=== PATIENT | female | born 1940 | race Caucasian/White ===

== ENCOUNTER 2016-12-09 12:14 | Outpatient (RCR) | payer MEDICARE, MEDICAID ==
[2016-12-09 13:54] LABS: BASOPHILS % (AUTO) 1 % (0-10); EOSINOPHILS # (AUTO) 0.2 10^3/uL (0.0-0.3); EOSINOPHILS % (AUTO) 4 % (0-10); HEMATOCRIT 41 % (35-52); HEMOGLOBIN 13.6 G/DL (11.5-16.0); LYMPHOCYTES # (AUTO) 0.9 X 10^3 (1.0-4.0); LYMPHOCYTES % (AUTO) 20 % (12-44); MEAN CORPUSCULAR HEMOGLOBIN 33 PG (25-34); MEAN CORPUSCULAR HGB CONC 33 G/DL (32-36); MEAN CORPUSCULAR VOLUME 97 FL (80-99); MEAN PLATELET VOLUME 9.2 FL (7.4-10.4); MONOCYTES # (AUTO) 0.5 X 10^3 (0.0-1.0); MONOCYTES % (AUTO) 11 % (0-12); NEUTROPHILS % (AUTO) 65 % (42-75); PLATELET COUNT 136 10^3/uL (130-400); RED BLOOD COUNT 4.19 10^6/uL (4.35-5.85); RED CELL DISTRIBUTION WIDTH 12.8 % (10.0-14.5); WHITE BLOOD COUNT 4.6 10^3/uL (4.3-11.0)
[2016-12-09 14:16] LABS: ALBUMIN 4.3 GM/DL (3.2-4.5); BILIRUBIN,TOTAL 0.4 MG/DL (0.1-1.0); CALCIUM 9.8 MG/DL (8.5-10.1); CREATININE SERUM 1.19 MG/DL (0.60-1.30); POTASSIUM 5.5 MMOL/L (3.6-5.0); TOTAL PROTEIN 7.4 GM/DL (6.4-8.2)
[2017-01-23] MEDS ORDERED: GABA600T2 (07:00)
[2017-01-23] MEDS ORDERED: GEMF600T3 (07:00)
[2017-01-23] MEDS ORDERED: ALLO100T (07:00)
[2017-01-23] MEDS ORDERED: VALS160T28 (07:00)
[2017-01-23] MEDS ORDERED: FENT1PAT6 (07:00)
[2017-01-23] MEDS ORDERED: FLUT16SP22 (07:00)
[2017-01-23] MEDS ORDERED: TRAM50TA2 (07:00)
[2017-01-23] MEDS ORDERED: ALPR0.5T7 (07:00)
[2017-01-23] MEDS ORDERED: OMEP20CA12 (07:00)
[2017-01-23] MEDS ORDERED: ESTR42.52 (07:00)
[2017-01-23] MEDS ORDERED: SERT25TA5 (07:00)
[2017-01-23] MEDS ORDERED: NYST15OI13 (07:00)
[2017-01-23] MEDS ORDERED: ACHD5005 (07:00)
== END 2017-03-09 | disposition home or self-care (01) ==
LOC: ONC 12:14
PROVIDERS: ATTEND Internal Medicine Hematology & Oncology
DX: Z08 Encounter for follow-up examination after completed treatment for malignant neoplasm (principal); Z85.3 Personal history of malignant neoplasm of breast; E08.40 Diabetes mellitus due to underlying condition with diabetic neuropathy, unspecified; G62.9 Polyneuropathy, unspecified; Z79.899 Other long term (current) drug therapy; Z92.3 Personal history of irradiation
CPT/HCPCS: 36415; 80053; 85025; 85027; 99213

== ENCOUNTER 2017-01-23 05:15 | Day surgery (SDC) | payer MEDICARE, MEDICAID ==
[~2017-01-23] VITALS: Ht 160 cm; Wt 72.6 kg
--- OUTSIDE RECORDS SUMMARY | 2017-01-23 05:20 | XMS REPORT | Clinical Summary ---
Author Author [facility] Organization [facility] Address Unknown Phone Unavailable Care Team Providers Care Plisse Machine Operator Name Role Phone PCP Unavailable Source Comments Some departments are not documenting in the electronic medical record. If you do not see the information that you expected, contact Release of Information in the Health Information Management department at [phone] for further assistance in locating additional records.[facility] Allergies No Known Allergies Current Medications Prescription Sig. Disp. Refills Start End Date Status Date ALPRAZolam (XANAX) 0.5 mg Take 0.5 mg by mouth at Active tablet bedtime as needed. valsartan (DIOVAN) 160 mg Take 160 mg by mouth Active tablet daily. tolterodine LA(+) (DETROL Take 4 mg by mouth daily. Active LA) 4 mg capsule CALCIUM PO Take by mouth. Active allopurinol (ZYLOPRIM) Take 100 mg by mouth Active 100 mg tablet daily. MULTIVITAMIN WITH Take by mouth. Active MINERALS (ONE-A-DAY 50 PLUS PO) omeprazole DR(+) Take 20 mg by mouth Active (PRILOSEC) 20 mg capsule daily. cephalexin (KEFLEX) 500 Take 500 mg by mouth four Active mg capsule times daily. aspirin EC 81 mg tablet Take 81 mg by mouth Active daily. cholecalciferol (VITAMIN Take 1,000 Units by mouth Active D-3) 1,000 units tablet daily. NAPROXEN SODIUM (ALEVE Take by mouth. 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 Intravitreal Injection Procedure OCT and other investigations were carefully reviewed and a decision was made to inject the eye with medication for treatment of the condition. I discussed diagnosis and plan for intravitreal injection with patient. Risks, benefits and alternatives were discussed with patient. Risk of infection, and signs and symptoms of infection discussed at length with patient. Discussed fluctuating and deteriorating vision over the course of treatment. Patient elects to proceed with injection, informed consent was obtained and all questions were answered. Eye OD Diagnosis: WET AMD Pre-injection drops: Tetracaine 0.5% drops X 5% Betadine X Speculum used X Tetravisc X Injection Needle: 27 Gauge Needle 30 Gauge Needle Needle supplied with medication X Intravitreal injection: Concentration Volume (in mL) Aflibercept (Eylea) 2 mg / 0.05 mL Ranibizumab (Lucentis) 0.3 mg / 0.05 mL Ranibizumab (Lucentis) 0.5 mg / 0.05 mL Bevacizumab (Avastin) 1.25 mg / 0.05 mL X Triamcinolone (Kenalog) 40 mg / mL Triamcinolone (Triesence) 40 mg / mL Vancomycin 1 mg / 100 microLiters Ceftazidime 2 mg / 100 microLiters Zero units wasted Post-operative examination: Intraocular pressure checked by tonopen and found to be wnl mmHg; no complications noted X Antibiotic ointment instilled in the eye Patient stable at discharge I personally performed the Injection Parvez Rosario MD Exudative age-related macular degeneration of left eye ([facility]) 03/25/2015 Last Assessment & Plan: inactive Corneal scar, 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 Last Assessment & Plan: 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 noted stromal vessels today Resolved Problems Problem Noted Date Resolved Date AMD (age related macular degeneration) right eye 03/25/2015 03/25/2015 Family History Medical History Relation Name Comments Coronary Artery Disease Father Diabetes Father Diabetes Mother Relation Name Status Comments Father Mother Social History Tobacco Use Types Packs/Day Years Used Date Never Smoker Smokeless Tobacco: Never Used Alcohol Use Drinks/Week oz/Week Comments No 0 Standard 0.0 drinks or equivalent Sex Assigned at Date Recorded Not on file Last Filed Vital Signs Vital Sign Reading Time Taken Blood Pressure 133/70 06/16/2015 2:22 PM CDT Pulse 68 06/16/2015 2:22 PM CDT Temperature - - Respiratory Rate - - Oxygen Saturation - - Inhaled Oxygen - - Concentration Weight 62.1 kg (137 lb) 06/16/2015 2:22 PM CDT Height 149.9 cm (4' 11") 06/16/2015 2:22 PM CDT Body Mass Index 27.67 06/16/2015 2:22 PM CDT Plan of Treatment Health Maintenance Due Date Last Done Comments PHYSICAL (COMPREHENSIVE) 1947 EXAM PERTUSSIS VACCINE 1953 TETANUS VACCINE 12/13/1959 BREAST CANCER SCREENING 1982 COLORECTAL CANCER 1992 SCREENING SHINGLES VACCINE 2002 OSTEOPOROSIS SCREENING 12/13/2007 PREVNAR/PNEUMOVAX (#1) 12/13/2007 INFLUENZA VACCINE 09/07/2016 Results Not on filefrom Last 3 Months
--- OUTSIDE RECORDS SUMMARY | 2017-01-23 05:20 | XMS REPORT | Clinical Summary ---
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 Carlos Melchor MD Circumscribed scleroderma Overactive Bladder Active Carlos Melchor MD Hypertonicity of bladder Medication List Medication Instructions Start Date Stop Date Generic Name NDC Status Provider Patient Instruction ASPIRIN 81 MG ORAL TABLET DELAYED RELEASE 1 po qd ASPIRIN 09892494460 Active Carlos Melchor MD Active CALCIUM 600 + D 600-200 MG-UNIT ORAL TABLET 1 tab by mouth daily CALCIUM CARB-CHOLECALCIFEROL 40469799719 Active Carlos Melchor MD Active VALSARTAN 160 MG ORAL TABLET 1 tab by mouth daily VALSARTAN 92827872198 Active Carlos Melchor MD Active GABAPENTIN 600 MG ORAL TABLET 1 tab by mouth tid GABAPENTIN 69635683835 Active Carlos Melchor MD Active LOPID 600 MG ORAL TABLET 1 tab by mouth daily GEMFIBROZIL 14523500884 Active Carlos Melchor MD Active ALLOPURINOL 100 MG ORAL TABLET 1 tab by mouth daily ALLOPURINOL 86164495883 Active Carlos Melchor MD Active MULTIVITAMINS ORAL CAPSULE 1 cap by mouth daily MULTIPLE VITAMIN 97394200232 Active Carlos Melchor MD Active OMEPRAZOLE 20 MG ORAL CAPSULE DELAYED RELEASE 1 tablet by mouth daily OMEPRAZOLE 05624730194 Active Carlos Melchor MD Active NYSTATIN 528539 UNIT/GM EXTERNAL CREAM apply to rash TID PRN NYSTATIN 77067301526 Active Carlos Melchor MD Active [id number] 3.5-34541-8 OPHTHALMIC SUSPENSION 2 drops in affected eye [id number] 22776687359 Active Carlos Melchor MD Active TRAMADOL HCL 50 MG ORAL TABLET 1 po tid prn TRAMADOL HCL 46698269810 Active Carlos Melchor MD Active ALPRAZOLAM 0.5 MG ORAL TABLET 1 tab by mouth daily ALPRAZOLAM 66402102914 Active Carlos Melchor MD Active ACETAMINOPHEN EXTRA STRENGTH 500 MG ORAL TABLET 1 tab by mouth prn ACETAMINOPHEN 25794465316 Active Carlos Melchor MD Active POLYVINYL ALCOHOL 1.4 % OPHTHALMIC SOLUTION 1 drop POLYVINYL ALCOHOL 46352312556 Active Carlos Melchor MD Active KP VITAMIN D 1000 UNIT ORAL CAPSULE 1 cap by mouth daily CHOLECALCIFEROL 65596303743 Active Carlos Melchor MD Active ALEVE 220 MG ORAL TABLET 2 tabs by mouth daily NAPROXEN SODIUM 20457274922 Active Carlos Melchor MD Active SERTRALINE HCL 25 MG ORAL TABLET 1 tab by mouth daily SERTRALINE HCL 07217586817 Active Carlos Melchor MD Active FLUTICASONE PROPIONATE 50 MCG/ACT NASAL SUSPENSION 1 spray each nostril twice daily until bottle empty FLUTICASONE PROPIONATE 80267646963 Active Carlos Melchor MD Active Vital Signs Date Name Value Unit Range Description blood pressure, diastolic 70 mm[Hg] BP wesley blood pressure, systolic 142 mm[Hg] BP sys pulse rate E&M 70 /min Heart rate temperature E&M 98.1 [degF] Body temperature weight E&M 158 [lb_av] Weight Measured blood pressure, diastolic 75 mm[Hg] BP wesley blood pressure, systolic 118 mm[Hg] BP sys height E&M 59 [in_us] Bdy height temperature E&M 98 [degF] Body temperature weight E&M 156 [lb_av] Weight Measured Diagnostic Results Date Name Value Unit Range Description Office Visit: 3 mo f/u post dilation - Chemistry RBC, urine, dipstick negative protein, total urine random trace mg/dL Office Visit: 3 mo f/u post dilation - Urinalysis pH, urine, semiquantitative 6 specific gravity, urine 1.015 ketones, urine, by test strip negative bilirubin, urine negative glucose, urine, semiquantitative negative urine color yellow appearance, urine clear leukocyte esterase, urine, by dipstick 2+ nitrite, urine, semiquantitative negative urobilinogen, urine, semiquantitative (dipstick) 0.2 protein, urine, semiquantitative (dipstick) negative Office Visit: Consult for Recurrent UTIs - Chemistry protein, total urine random negative mg/dL RBC, urine, dipstick non-hemolyzed trace Office Visit: Consult for Recurrent UTIs - Urinalysis ketones, urine, by test strip negative bilirubin, urine negative glucose, urine, semiquantitative negative urine color yellow appearance, urine clear leukocyte esterase, urine, by dipstick trace nitrite, urine, semiquantitative negative urobilinogen, urine, semiquantitative (dipstick) negative protein, urine, semiquantitative (dipstick) negative pH, urine, semiquantitative 5 specific gravity, urine 1.005 urinalysis, routine Clean Catch culture status No Encounters Code Encounter Date Provider Facility CPT-37720 Level 3 New Patient 15:16:53 CDT Carlos Melchor MD [facility] Procedures Code Procedure Name Date Entry Date Standard Description CPT-07145 Dil F ureth int 15:16:54 CDT CPT-22463 Bladder Scan 15:16:53 CDT
--- OUTSIDE RECORDS SUMMARY | 2017-01-23 05:20 | XMS REPORT ---
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 Problem Anxiety F41.9 Active Problem History of breast cancer Z85.3 Active Problem General medical exam Z00.00 Active Problem Umbilical hernia K42.9 Active Problem Hypertriglyceridemia E78.1 Active Problem Hearing loss H91.90 Active Problem History of gout Z87.39 Active Problem Neuropathy G62.9 Active Problem Cataracts, bilateral H26.9 Active Problem History of gonorrhea Z86.19 Active Problem Verruca plantaris B07.0 Active Problem History of diabetes mellitus Z86.39 Active Problem Falls frequently R29.6 Active Medications No Known Medications Results No Known Results Summary Purpose [employer] Submission
--- OUTSIDE RECORDS SUMMARY | 2017-01-23 05:20 | XMS REPORT ---
Author Author SHAUN GOMEZ Organization [employer] Address Unknown Phone Unavailable Care Team Providers Care Tack Picker Name Role Phone SHAUN GOMEZ CP Unavailable Allergies, Adverse Reactions, Alerts Substance Reaction Event Type N.K.D.A. Info Not Available Non Drug Allergy Problems Problem Type Condition Code Onset Dates Condition Status Assessment History of gonorrhea Z86.19 Active Problem Verruca plantaris B07.0 Active Assessment Verruca plantaris B07.0 Active Problem History of diabetes mellitus Z86.39 Active Assessment History of diabetes mellitus Z86.39 Active Problem Falls frequently R29.6 Active Problem History of breast cancer Z85.3 Active Problem History of Guillain-[place] syndrome Z86.69 Active Problem Umbilical hernia K42.9 Active Problem Neuropathy G62.9 Active Assessment History of breast cancer Z85.3 Active Assessment History of Guillain-[place] syndrome Z86.69 Active Problem General medical exam Z00.00 Active Assessment Falls frequently R29.6 Active Problem History of gout Z87.39 Active Problem Anxiety F41.9 Active Problem Cataracts, bilateral H26.9 Active Problem Hearing loss H91.90 Active Assessment Hearing loss H91.90 Active Assessment Cataracts, bilateral H26.9 Active Assessment Anxiety F41.9 Active Assessment History of gout Z87.39 Active Assessment General medical exam Z00.00 Active Problem History of gonorrhea Z86.19 Active Assessment Neuropathy G62.9 Active Assessment Umbilical hernia K42.9 Active Medications Medication Code System Code Instructions Start Date End Date Status Dosage D3-1000 [facility] [address] 1000 UNIT Orally Once a day 1 capsule Aspirin [facility] [address]-59 81 MG Orally Once a day 1 tablet Calcium [facility] [address] 600-200 MG-UNIT Orally not defined Aleve [facility] [address]-98 220 MG Orally every 12 hrs 1 tablet as needed Valsartan [facility] [address]-97 160 MG Orally Once a day 1 tablet Tolterodine Tartrate ER [facility] [address]-43 4 MG Orally Once a day 1 capsule One Daily 50 Plus [facility] [address] Orally not defined Allopurinol [facility] [address]-27 100 MG Orally Once a day 1 tablet Alprazolam [facility] [address]-77 0.5 MG Orally Three times a day 1 tablet Procedures Procedure Coding System Code Date LAB NOT BILLED BY [facility] CPT-4 NOBLL Mar 07, 2015 [facility] VISIT NEW PATIENT CPT-4 G0466 Mar 07, 2015 GLYCATED HEMOGLOBIN TEST CPT-4 66908 Mar 07, 2015 VENIPUNCT, ROUTINE* CPT-4 58219 Mar 07, 2015 Office Visit, New Pt., Level 4 CPT-4 08768 Mar 07, 2015 Vital Signs Date/Time: Mar 07, 2015 Cardiac Monitoring Heart Rate 104 bpm Temperature 97.5 F Weight 142 lbs Blood Pressure Diastolic 82 mmHg Blood Pressure Systolic 108 mmHg Results Name Result Date Reference Range Unit Abnormality Flag A1C (IN HOUSE) ----A1C IN HOUSE 5.7 [id number] 4.3 - 5.6 % ----Lot [id number] ----Exp date [id number] ROUTINE VENIPUNCTURE Summary Purpose [employer] Submission
--- OUTSIDE RECORDS SUMMARY | 2017-01-23 05:20 | XMS REPORT | Clinical Summary ---
Author Author Admin, E Organization [facility] Address Unknown Phone Unavailable Allergies, Adverse Reactions, [...] TABLET DELAYED RELEASE 1 po qd ASPIRIN 21680053443 Active Carlos Melchor MD Active CALCIUM 600 + D 600-200 MG-UNIT ORAL TABLET 1 tab by mouth daily CALCIUM CARB-CHOLECALCIFEROL 86559346972 Active Carlos Melchor MD Active VALSARTAN 160 MG ORAL TABLET 1 tab by mouth daily VALSARTAN 54873729469 Active Carlos Melchor MD Active GABAPENTIN 600 MG ORAL TABLET 1 tab by mouth tid GABAPENTIN 32111739142 Active Carlos Melchor MD Active LOPID 600 MG ORAL TABLET 1 tab by mouth daily GEMFIBROZIL 96564421265 Active Carlos Melchor MD Active ALLOPURINOL 100 MG ORAL TABLET 1 tab by mouth daily ALLOPURINOL 10363262993 Active Carlos Melchor MD Active MULTIVITAMINS ORAL CAPSULE 1 cap by mouth daily MULTIPLE VITAMIN 70025275456 Active Carlos Melchor MD Active OMEPRAZOLE 20 MG ORAL CAPSULE DELAYED RELEASE 1 tablet by mouth daily OMEPRAZOLE 94501743727 Active Carlos Melchor MD Active NYSTATIN 955816 UNIT/GM EXTERNAL CREAM apply to rash TID PRN NYSTATIN 39120333338 Active Carlos Melchor MD Active QNJHMYLF-KRXEHNKOF-FG 3.5-09627-8 OPHTHALMIC SUSPENSION 2 drops in affected eye QDZEBOEQ-GFNYYQTUJ-JC 03253363841 Active Carlos Melchor MD Active TRAMADOL HCL 50 MG ORAL TABLET 1 po tid prn TRAMADOL HCL 02758743894 Active Carlos Melchor MD Active ALPRAZOLAM 0.5 MG ORAL TABLET 1 tab by mouth daily ALPRAZOLAM 53575969246 Active Carlos Melchor MD Active ACETAMINOPHEN EXTRA STRENGTH 500 MG ORAL TABLET 1 tab by mouth prn ACETAMINOPHEN 61629963100 Active Carlos Melchor MD Active POLYVINYL ALCOHOL 1.4 % OPHTHALMIC SOLUTION 1 drop POLYVINYL ALCOHOL 27562677819 Active Carlos Melchor MD Active KP VITAMIN D 1000 UNIT ORAL CAPSULE 1 cap by mouth daily CHOLECALCIFEROL 48848833429 Active Carlos Melchor MD Active ALEVE 220 MG ORAL TABLET 2 tabs by mouth daily NAPROXEN SODIUM 36718674584 Active Carlos Melchor MD Active SERTRALINE HCL 25 MG ORAL TABLET 1 tab by mouth daily SERTRALINE HCL 61511000661 Active Carlos Melchor MD Active FLUTICASONE PROPIONATE 50 MCG/ACT NASAL SUSPENSION 1 spray each nostril twice daily until bottle empty FLUTICASONE PROPIONATE 49909789753 Active Carlos Melchor MD Active Vital Signs [...] No Encounters Code Encounter Date Provider Facility CPT-56461 Level 3 New Patient 15:16:53 CDT Carlos Melchor MD [facility] Procedures Code Procedure Name Date Entry Date Standard Description CPT-60492 Dil F ureth int 15:16:54 CDT CPT-82395 Bladder Scan 15:16:53 CDT
--- OUTSIDE RECORDS SUMMARY | 2017-01-23 05:20 | XMS REPORT ---
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 Problem Cataracts, bilateral H26.9 Active Problem Hearing loss H91.90 Active Problem Umbilical hernia K42.9 Active Problem Neuropathy G62.9 Active Problem Verruca plantaris B07.0 Active Problem History of diabetes mellitus Z86.39 Active Problem Falls frequently R29.6 Active Problem History of gonorrhea Z86.19 Active Problem History of Guillain-[place] syndrome Z86.69 Active Medications Medication Code System Code Instructions Start Date End Date Status Dosage Tolterodine Tartrate ER [facility] [address]-51 4 MG Orally Once a day 1 capsule Allopurinol [facility] [address]-79 100 MG Orally Once a day 1 tablet Results No Known Results Summary Purpose [employer] Submission
--- OUTSIDE RECORDS SUMMARY | 2017-01-23 05:20 | XMS REPORT | Clinical Summary ---
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 Medication List Medication Instructions Start Date Stop Date Generic Name NDC Status Provider Patient Instruction ASPIRIN 81 MG ORAL TBEC 1 po qd ASPIRIN 64390248517 Active Carlos Melchor MD Active CALCIUM 600 + D 600-200 MG-UNIT ORAL TABS 1 tab by mouth daily CALCIUM CARB-CHOLECALCIFEROL 77186127137 Active Carlos Melchor MD Active VALSARTAN 160 MG ORAL TABS 1 tab by mouth daily VALSARTAN 84262651296 Active Carlos Melchor MD Active GABAPENTIN 600 MG ORAL TABS 1 tab by mouth tid GABAPENTIN 70540965872 Active Carlos Melchor MD Active LOPID 600 MG ORAL TABS 1 tab by mouth daily GEMFIBROZIL 26112532668 Active Carlos Melchor MD Active ALLOPURINOL 100 MG TAB 1 tab by mouth daily ALLOPURINOL 74015804336 Active Carlos Melchor MD Active MULTIVITAMINS CAPS 1 cap by mouth daily MULTIPLE VITAMIN 02186875083 Active Carlos Melchor MD Active OMEPRAZOLE 20 MG CPDR 1 tablet by mouth daily OMEPRAZOLE 40846026998 Active Carlos Melchor MD Active NYSTATIN 298798 UNIT/GM CREA apply to rash TID PRN NYSTATIN 10090363147 Active Carlos Melchor MD Active PEXGTNYY-BBKSDCNZP-PH 3.5-04156-1 OPHTH SUSP 2 drops in affected eye [id number] 60556190481 Active Carlos Melchor MD Active TRAMADOL HCL 50 MG TABS 1 po tid prn TRAMADOL HCL 88091127170 Active Carlos Melchor MD Active ALPRAZOLAM 0.5 MG TAB 1 tab by mouth daily ALPRAZOLAM 04742967269 Active Carlos Melchor MD Active ACETAMINOPHEN EXTRA STRENGTH 500 MG ORAL TABS 1 tab by mouth prn ACETAMINOPHEN 00810500087 Active Carlos Melchor MD Active POLYVINYL ALCOHOL 1.4 % OPHTH SOLN 1 drop POLYVINYL ALCOHOL 84634981979 Active Carlos Melchor MD Active KP VITAMIN D 1000 UNIT ORAL CAPS 1 cap by mouth daily CHOLECALCIFEROL 27394828368 Active Carlos Melchor MD Active ALEVE 220 MG TAB 2 tabs by mouth daily NAPROXEN SODIUM 36123094440 Active Carlos Melchor MD Active SERTRALINE HCL 25 MG ORAL TABS 1 tab by mouth daily SERTRALINE HCL 79643838313 Active Carlos Melchor MD Active FLUTICASONE PROPIONATE 50 MCG/ACT SUSP 1 spray each nostril twice daily until bottle empty FLUTICASONE PROPIONATE 75250149894 Active Carlos Melchor MD Active Vital Signs Date Name Value Unit Range Description blood pressure, diastolic 75 mm[Hg] BP wesley blood pressure, systolic 118 mm[Hg] BP sys height E&M 59 [in_us] Bdy height temperature E&M 98 [degF] Body temperature weight E&M 156 [lb_av] Weight Measured Diagnostic Results Date Name Value Unit Range Description Office Visit: Consult for Recurrent UTIs - Chemistry RBC, urine, dipstick non-hemolyzed trace protein, total urine random negative mg/dL Office Visit: Consult for Recurrent UTIs - Urinalysis pH, urine, semiquantitative 5 specific gravity, urine 1.005 urinalysis, routine Clean Catch culture status No ketones, urine, by test strip negative bilirubin, urine negative glucose, urine, semiquantitative negative urine color yellow appearance, urine clear leukocyte esterase, urine, by dipstick trace nitrite, urine, semiquantitative negative urobilinogen, urine, semiquantitative (dipstick) negative protein, urine, semiquantitative (dipstick) negative Encounters Code Encounter Date Provider Facility CPT-05959 Level 3 New Patient 15:16:53 CDT J Franco Melchor MD [facility] Procedures Code Procedure Name Date Entry Date Standard Description CPT-91065 Dil F ureth int 15:16:54 CDT CPT-83823 Bladder Scan 15:16:53 CDT
--- OUTSIDE RECORDS SUMMARY | 2017-01-23 05:21 | XMS REPORT | Clinical Summary ---
Author Author Admin, QIE Organization [facility] Address Unknown Phone Unavailable Allergies, Adverse [...] MG ORAL TBEC 1 po qd ASPIRIN 18340007061 Active Carlos Melchor MD Active CALCIUM 600 + D 600-200 MG-UNIT ORAL TABS 1 tab by mouth daily CALCIUM CARB-CHOLECALCIFEROL 99080338089 Active Carlos Melchor MD Active VALSARTAN 160 MG ORAL TABS 1 tab by mouth daily VALSARTAN 92390511892 Active Carlos Melchor MD Active GABAPENTIN 600 MG ORAL TABS 1 tab by mouth tid GABAPENTIN 02087520710 Active Carlos Melchor MD Active LOPID 600 MG ORAL TABS 1 tab by mouth daily GEMFIBROZIL 37490740052 Active Carlos Melchor MD Active ALLOPURINOL 100 MG TAB 1 tab by mouth daily ALLOPURINOL 13281801603 Active Carlos Melchor MD Active MULTIVITAMINS CAPS 1 cap by mouth daily MULTIPLE VITAMIN 54890400657 Active Carlos Melchor MD Active OMEPRAZOLE 20 MG CPDR 1 tablet by mouth daily OMEPRAZOLE 23946567175 Active Carlos Melchor MD Active NYSTATIN 866587 UNIT/GM CREA apply to rash TID PRN NYSTATIN 21760997696 Active Carlos Melchor MD Active [id number]-[id number]-HW 3.5-95368-7 OPHTH SUSP 2 drops in affected eye [id number] 64308217361 Active Carlos Melchor MD Active TRAMADOL HCL 50 MG TABS 1 po tid prn TRAMADOL HCL 23253172772 Active Carlos Melchor MD Active ALPRAZOLAM 0.5 MG TAB 1 tab by mouth daily ALPRAZOLAM 13585389448 Active Carlos Melchor MD Active ACETAMINOPHEN EXTRA STRENGTH 500 MG ORAL TABS 1 tab by mouth prn ACETAMINOPHEN 46669618914 Active Carlos Melchor MD Active POLYVINYL ALCOHOL 1.4 % OPHTH SOLN 1 drop POLYVINYL ALCOHOL 98726922692 Active Carlos Melchor MD Active KP VITAMIN D 1000 UNIT ORAL CAPS 1 cap by mouth daily CHOLECALCIFEROL 24885595303 Active Carlos Melchor MD Active ALEVE 220 MG TAB 2 tabs by mouth daily NAPROXEN SODIUM 86333508398 Active Carlos Melchor MD Active SERTRALINE HCL 25 MG ORAL TABS 1 tab by mouth daily SERTRALINE HCL 59299759114 Active Carlos Melchor MD Active FLUTICASONE PROPIONATE 50 MCG/ACT SUSP 1 spray each nostril twice daily until bottle empty FLUTICASONE PROPIONATE 23380542450 Active Carlos Melchor MD Active Vital Signs [...] negative Encounters Code Encounter Date Provider Facility CPT-33215 Level 3 New Patient 15:16:53 CDT J Franco Melchor MD [facility] Procedures Code Procedure Name Date Entry Date Standard Description CPT-47237 Dil F ureth int 15:16:54 CDT CPT-35302 Bladder Scan 15:16:53 CDT
--- OUTSIDE RECORDS SUMMARY | 2017-01-23 05:21 | XMS REPORT ---
Author Author SHAUN GOMEZ Organization [employer] Address Unknown Phone Unavailable Care Team Providers Care Director Strategic Account Management Name Role Phone SHAUN GOMEZ CP Unavailable Allergies, Adverse Reactions, Alerts Substance Reaction Event Type N.K.D.A. 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 Assessment History of diabetes mellitus Z86.39 Active Problem Hypertriglyceridemia E78.1 Active Problem Hearing loss H91.90 Active Problem History of gout Z87.39 Active Problem Neuropathy G62.9 Active Problem Cataracts, bilateral H26.9 Active Assessment Hearing loss H91.90 Active Assessment Cataracts, bilateral H26.9 Active Assessment Anxiety F41.9 Active Assessment History of gout Z87.39 Active Problem History of gonorrhea Z86.19 Active Problem Verruca plantaris B07.0 Active Assessment Neuropathy G62.9 Active Problem History of diabetes mellitus Z86.39 Active Assessment HTN (hypertension) I10 Active Assessment Hypertriglyceridemia E78.1 Active Problem Falls frequently R29.6 Active Medications Medication Code System Code Instructions Start Date End Date Status Dosage Aleve [facility] [address]-62 220 MG Orally every 12 hrs 1 tablet as needed Alprazolam [facility] [address]-73 0.5 MG Orally Three times a day 1 tablet Tolterodine Tartrate ER [facility] [address]-67 4 MG Orally Once a day 1 capsule Valsartan [facility] [address]-34 160 MG Orally Once a day 1 tablet Calcium [facility] 70948-03260 600-200 MG-UNIT Orally Once a day 1 tablet One Daily 50 Plus [facility] 64524-83325 1 tablet Orally Once a day 1 tablet D3-1000 [facility] 50483-68102 1000 UNIT Orally Once a day 1 capsule Allopurinol [facility] [address]-14 100 MG Orally Once a day 1 tablet Gemfibrozil [facility] [address]-37 600 MG Orally Twice a day 30 minutes before breakfast and 30 minutes before dinner Mar 14, 2015 1 tablet Aspirin [facility] [address]-67 81 MG Orally Once a day 1 tablet Procedures Procedure Coding System Code Date Office Visit, Est Pt., Level 3 CPT-4 49188 Mar 14, 2015 [facility] VISIT ESTABLISHED PATIENT CPT-4 G0467 Mar 14, 2015 Vital Signs Date/Time: Mar 14, 2015 Cardiac Monitoring Heart Rate 90 bpm Temperature 98.3 F Weight 138.9 lbs Blood Pressure Diastolic 64 mmHg Blood Pressure Systolic 108 mmHg Results No Known Results Summary Purpose [employer] Submission
--- OUTSIDE RECORDS SUMMARY | 2017-01-23 05:21 | XMS REPORT | Clinical Summary ---
Author Author Admin, QIE Organization [facility] Address Unknown Phone Unavailable Allergies, Adverse [...] MG ORAL TBEC 1 po qd ASPIRIN 27662021390 Active Carlos Melchor MD Active CALCIUM 600 + D 600-200 MG-UNIT ORAL TABS 1 tab by mouth daily CALCIUM CARB-CHOLECALCIFEROL 03575077578 Active Carlos Melchor MD Active VALSARTAN 160 MG ORAL TABS 1 tab by mouth daily VALSARTAN 35049767773 Active Carlos Melchor MD Active GABAPENTIN 600 MG ORAL TABS 1 tab by mouth tid GABAPENTIN 49821299692 Active Carlos Melchor MD Active LOPID 600 MG ORAL TABS 1 tab by mouth daily GEMFIBROZIL 45040770653 Active Carlos Melchor MD Active ALLOPURINOL 100 MG TAB 1 tab by mouth daily ALLOPURINOL 15134322200 Active Carlos Melchor MD Active MULTIVITAMINS CAPS 1 cap by mouth daily MULTIPLE VITAMIN 02943132327 Active Carlos Melchor MD Active OMEPRAZOLE 20 MG CPDR 1 tablet by mouth daily OMEPRAZOLE 12182692111 Active Carlos Melchor MD Active NYSTATIN 314030 UNIT/GM CREA apply to rash TID PRN NYSTATIN 19992610795 Active Carlos Melchor MD Active RXHTFJYH-[id number]-NV 3.5-14959-6 OPHTH SUSP 2 drops in affected eye [id number]-[id number] 70959954499 Active Carlos Melchor MD Active TRAMADOL HCL 50 MG TABS 1 po tid prn TRAMADOL HCL 13769328549 Active Carlos Melchor MD Active ALPRAZOLAM 0.5 MG TAB 1 tab by mouth daily ALPRAZOLAM 82097430345 Active Carlos Melchor MD Active ACETAMINOPHEN EXTRA STRENGTH 500 MG ORAL TABS 1 tab by mouth prn ACETAMINOPHEN 22774085780 Active Carlos Melchor MD Active POLYVINYL ALCOHOL 1.4 % OPHTH SOLN 1 drop POLYVINYL ALCOHOL 80447836872 Active Carlos Melchor MD Active KP VITAMIN D 1000 UNIT ORAL CAPS 1 cap by mouth daily CHOLECALCIFEROL 17545188002 Active Carlos Melchor MD Active ALEVE 220 MG TAB 2 tabs by mouth daily NAPROXEN SODIUM 46091109709 Active Carlos Melchor MD Active SERTRALINE HCL 25 MG ORAL TABS 1 tab by mouth daily SERTRALINE HCL 71574909022 Active Carlos Melchor MD Active FLUTICASONE PROPIONATE 50 MCG/ACT SUSP 1 spray each nostril twice daily until bottle empty FLUTICASONE PROPIONATE 59564526829 Active Carlos Melchor MD Active Vital Signs [...] negative Encounters Code Encounter Date Provider Facility CPT-20563 Level 3 New Patient 15:16:53 CDT J Franco Melchor MD [facility] Procedures Code Procedure Name Date Entry Date Standard Description CPT-85078 Dil F ureth int 15:16:54 CDT CPT-66198 Bladder Scan 15:16:53 CDT
--- OUTSIDE RECORDS SUMMARY | 2017-01-23 05:21 | XMS REPORT | Clinical Summary ---
Author Author Admin, E Organization [facility] Address Unknown Phone Unavailable Allergies, [...] TABLET DELAYED RELEASE 1 po qd ASPIRIN 45954879051 Active Carlos Melchor MD Active CALCIUM 600 + D 600-200 MG-UNIT ORAL TABLET 1 tab by mouth daily CALCIUM CARB-CHOLECALCIFEROL 33696141260 Active Carlos Melchor MD Active VALSARTAN 160 MG ORAL TABLET 1 tab by mouth daily VALSARTAN 78839038108 Active Carlos Melchor MD Active GABAPENTIN 600 MG ORAL TABLET 1 tab by mouth tid GABAPENTIN 60051799796 Active Carlos Melchor MD Active LOPID 600 MG ORAL TABLET 1 tab by mouth daily GEMFIBROZIL 04254499604 Active Carlos Melchor MD Active ALLOPURINOL 100 MG ORAL TABLET 1 tab by mouth daily ALLOPURINOL 02378357134 Active Carlos Melchor MD Active MULTIVITAMINS ORAL CAPSULE 1 cap by mouth daily MULTIPLE VITAMIN 29268786505 Active Carlos Melchor MD Active OMEPRAZOLE 20 MG ORAL CAPSULE DELAYED RELEASE 1 tablet by mouth daily OMEPRAZOLE 74646679853 Active Carlos Melchor MD Active NYSTATIN 093931 UNIT/GM EXTERNAL CREAM apply to rash TID PRN NYSTATIN 49383347320 Active Carlos Melchor MD Active IZCTVJZD-LKERWXRFW-MZ 3.5-12247-3 OPHTHALMIC SUSPENSION 2 drops in affected eye TRLXOKMR-CLDJMNVUL-MX 98140839221 Active Carlos Melchor MD Active TRAMADOL HCL 50 MG ORAL TABLET 1 po tid prn TRAMADOL HCL 45159090684 Active Carlos Melchor MD Active ALPRAZOLAM 0.5 MG ORAL TABLET 1 tab by mouth daily ALPRAZOLAM 58345300504 Active Carlos Melchor MD Active ACETAMINOPHEN EXTRA STRENGTH 500 MG ORAL TABLET 1 tab by mouth prn ACETAMINOPHEN 46290806489 Active Carlos Melchor MD Active POLYVINYL ALCOHOL 1.4 % OPHTHALMIC SOLUTION 1 drop POLYVINYL ALCOHOL 29471426260 Active Carlos Melchor MD Active KP VITAMIN D 1000 UNIT ORAL CAPSULE 1 cap by mouth daily CHOLECALCIFEROL 87032572795 Active Carlos Melchor MD Active ALEVE 220 MG ORAL TABLET 2 tabs by mouth daily NAPROXEN SODIUM 93674773838 Active Carlos Melchor MD Active SERTRALINE HCL 25 MG ORAL TABLET 1 tab by mouth daily SERTRALINE HCL 00252107421 Active Carlos Melchor MD Active FLUTICASONE PROPIONATE 50 MCG/ACT NASAL SUSPENSION 1 spray each nostril twice daily until bottle empty FLUTICASONE PROPIONATE 93701515494 Active Carlos Melchor MD Active Vital Signs [...] No Encounters Code Encounter Date Provider Facility CPT-37385 Level 3 New Patient 15:16:53 CDT Carlos Melchor MD [facility] Procedures Code Procedure Name Date Entry Date Standard Description CPT-95180 Dil F ureth int 15:16:54 CDT CPT-38202 Bladder Scan 15:16:53 CDT
--- OUTSIDE RECORDS SUMMARY | 2017-01-23 05:21 | XMS REPORT | Continuity of Care Document ---
Author Author [facility] Organization [facility] Address Unknown Phone Unavailable Allergies There is no data. Medications There is no data. Problems Date Dx Coded Attending Type Code Diagnosis Diagnosed By 12/20/2013 RANDY, BOBKALLI N Ot 356.9 12/20/2013 RANDY BOBAN N Ot 715.89 12/20/2013 RANDYREGINALDOAN N Ot V10.3 12/20/2013 RANDY, BOBAN N Ot V58.66 12/20/2013 RANDY, BOBAN N Ot V58.69 12/20/2013 RANDY, BOBAN N Ot V67.1 01/02/2014 RANDY BOBAN N Ot 356.9 01/02/2014 RANDY, BOBAN N Ot 715.89 01/02/2014 RANDY, BOBAN N Ot V10.3 01/02/2014 RANDY, BOBAN N Ot V58.66 01/02/2014 RANDY, BOBAN N Ot V58.69 01/02/2014 RANDY, BOBAN N Ot V67.1 12/24/2014 RANDYDANNY SHUKLA N Ot E08.40 12/24/2014 RANDYREGINALDOAN N Ot G62.9 12/24/2014 RANDY, BOBAN N Ot Z08 12/24/2014 RANDY, BOBAN N Ot Z79.899 12/24/2014 RANDY, BOBAN N Ot Z85.3 12/24/2014 RANDY, BOBAN N Ot Z92.3 12/30/2014 Ot 174.9 12/30/2014 Ot V15.3 12/30/2014 Ot V58.66 12/30/2014 Ot V58.69 12/30/2014 Ot 585.3 12/30/2014 Ot V10.3 12/30/2014 Ot V58.66 12/30/2014 Ot V58.69 12/30/2014 Ot V67.1 12/30/2014 Ot 356.9 12/30/2014 Ot V10.3 12/30/2014 Ot V58.66 12/30/2014 Ot V58.69 12/30/2014 Ot V67.1 12/30/2014 RANDY, DANNY N Ot 356.9 12/30/2014 RANDY, BOBAN N Ot 715.89 12/30/2014 RANDY, REGINALDOAN N Ot V10.3 12/30/2014 RANDY, REGINALDOAN N Ot V58.66 12/30/2014 RANDY, BOBAN N Ot V58.69 12/30/2014 RANDY, BOBAN N Ot V67.1 12/30/2014 RANDY, REGINALDOAN N Ot 356.9 12/30/2014 RANDY, REGINALDOAN N Ot 715.89 12/30/2014 RANDY, REGINALDOKALLI N Ot V10.3 12/30/2014 RANDY, DANNY N Ot V58.66 12/30/2014 RANDY, DANNY N Ot V58.69 12/30/2014 RANDY, REGINALDOKALLI N Ot V67.1 12/30/2014 RANDY, DANNY N Ot E08.40 12/30/2014 RANDY, DANNY N Ot G62.9 12/30/2014 RANDY, BOBAN N Ot Z08 12/30/2014 RANDY, BOBAN N Ot Z79.899 12/30/2014 RANDY, BOBAN N Ot Z85.3 12/30/2014 RANDY, REGINALDOAN N Ot Z92.3 12/30/2014 RANDY, DANNY N Ot E08.40 12/30/2014 RANDY, REGINALDOAN N Ot G62.9 12/30/2014 RANDY, BOBAN N Ot Z08 12/30/2014 RANDY, BOBAN N Ot Z79.899 12/30/2014 RANDY, BOBAN N Ot Z85.3 12/30/2014 RANDY, BOBAN N Ot Z92.3 12/02/2015 RANDY, REGINALDOAN N Ot E08.40 DIABETES DUE TO UNDERLYING CONDITION W D 12/02/2015 RANDYREGINALDO SHUKLAAN N Ot G62.9 POLYNEUROPATHY, UNSPECIFIED 12/02/2015 RANDYDANNY SHUKLA N Ot Z08 ENCNTR FOR FOLLOW-UP EXAM AFTER TRTMT FO 12/02/2015 DANNY PADILLA N Ot Z79.899 OTHER JAIL (CURRENT) DRUG THERAPY 12/02/2015 DANNY PADILLA N Ot Z85.3 PERSONAL HISTORY OF MALIGNANT NEOPLASM O 12/02/2015 DANNY PADILLA N Ot Z92.3 PERSONAL HISTORY OF IRRADIATION 12/08/2015 DANNY PADILLA N Ot E08.40 DIABETES DUE TO UNDERLYING CONDITION W D 12/08/2015 DANNY PADILLA N Ot G62.9 POLYNEUROPATHY, UNSPECIFIED 12/08/2015 RANDYDANNY SHUKLA N Ot Z08 ENCNTR FOR FOLLOW-UP EXAM AFTER TRTMT FO 12/08/2015 DANNY PADILLA N Ot Z79.899 OTHER JAIL (CURRENT) DRUG THERAPY 12/08/2015 DANNY PADILLA N Ot Z85.3 PERSONAL HISTORY OF MALIGNANT NEOPLASM O 12/08/2015 DANNY PADILLA N Ot Z92.3 PERSONAL HISTORY OF IRRADIATION 12/23/2015 DANNY PADILLA N Ot E08.40 DIABETES DUE TO UNDERLYING CONDITION W D 12/23/2015 DANNY PADILLA N Ot G62.9 POLYNEUROPATHY, UNSPECIFIED 12/23/2015 DANNY PADILLA N Ot Z08 ENCNTR FOR FOLLOW-UP EXAM AFTER TRTMT FO 12/23/2015 DANNY PADILLA N Ot Z79.899 OTHER JAIL (CURRENT) DRUG THERAPY 12/23/2015 DANNY PADILLA N Ot Z85.3 PERSONAL HISTORY OF MALIGNANT NEOPLASM O 12/23/2015 DANNY PADILLA N Ot Z92.3 PERSONAL HISTORY OF IRRADIATION 12/31/2015 DANNY PADILLA N Ot E08.40 DIABETES DUE TO UNDERLYING CONDITION W D 12/31/2015 DANNY PADILLA N Ot G62.9 POLYNEUROPATHY, UNSPECIFIED 12/31/2015 DANNY PADILLA N Ot Z08 ENCNTR FOR FOLLOW-UP EXAM AFTER TRTMT FO 12/31/2015 DANNY PADILLA N Ot Z79.899 OTHER POLYMER CHEMIST (CURRENT) DRUG THERAPY 12/31/2015 DANNY PADILLA N Ot Z85.3 PERSONAL HISTORY OF MALIGNANT NEOPLASM O 12/31/2015 DANNY PADILLA N Ot Z92.3 PERSONAL HISTORY OF IRRADIATION 09/17/2016 Ruiz CARRILLO, Carlos Gamez L90.0 Lichen sclerosus et atrophicus 12/10/2016 DANNY PADILLA Ot E08.40 DIABETES DUE TO UNDERLYING CONDITION W D 12/10/2016 DANNY PADILLA Ot G62.9 POLYNEUROPATHY, UNSPECIFIED 12/10/2016 DANNY PADILLA Ot Z08 ENCNTR FOR FOLLOW-UP EXAM AFTER TRTMT FO 12/10/2016 DANNY PADILLA Ot Z79.899 OTHER JAIL (CURRENT) DRUG THERAPY 12/10/2016 DANNY PADILLA Ot Z85.3 PERSONAL HISTORY OF MALIGNANT NEOPLASM O 12/10/2016 DANNY PADILLA Ot Z92.3 PERSONAL HISTORY OF IRRADIATION 01/14/2017 Ruiz CARRILLO, Carlos Gamez N32.81 Overactive Bladder Procedures There is no data. Results There is no data. Encounters ACCT No. Visit Date/Time Discharge Status Pt. Type Provider Facility Loc./Unit Complaint [id number] 12/09/2016 12:14:00 12/09/2016 23:59:59 CLS Outpatient DANNY PADILLA [facility] ONC [id number] 12/02/2015 10:42:00 12/02/2015 23:59:59 CLS Outpatient DANNY PADILLA [facility] FS [id number] 11/26/2014 11:00:00 11/26/2014 23:59:59 CLS Outpatient DANNY PADILLA [facility] FS [id number] 11/20/2013 10:16:00 11/20/2013 23:59:59 CLS Outpatient DANNY PADILLA [facility] FS [id number] 11/28/2012 12:59:00 11/28/2012 23:59:59 CLS Outpatient DANNY PADILLA [facility] FS [id number] 11/30/2011 13:04:00 Document Registration [id number] 11/03/2010 12:51:00 Document Registration [id number] 11/04/2009 13:41:00 Document Registration [id number] 01/15/2017 10:32:00 ACT Unknown Carlos Melchor MD
[2017-01-23] MEDS ORDERED: NS IV 1000 ML 1,000 ML IV ONE (05:30)
--- NOTE | 2017-01-23 05:43 | ED EENT ---
History of Present Illness General Stated Complaint: NOSE BLEED Source: EMS, RN notes reviewed (FROM [facility]) Exam Limitations: physical impairment (PT IS ESSENTIALLY DEAF, AND DID NOT BRING HEARING AIDS WITH HER) History of Present Illness Time seen by provider: 05:20 Initial Comments PT ARRIVES VIA EMS FROM [facility] PT HAS HAD A NOSE BLEED OFF AND ON SINCE YESTERDAY--LEFT NARE PT HAS BEEN TRANSPORTED BY EMS FROM HOME TO [facility] , APPARENTLY 2 TIMES IN THE LAST 12 HOURS, FIRST TIME PT ARRIVED BY POV--THE FIRST TIME, NOSE WAS PACKED WITH RAPID RHINO SECOND TIME, MORE AIR WAS PUT IN RAPID RHINO THIRD TIME, A LARGER 7.5 CM RAPID RHINO WAS PLACED THIS LAST TIME, PT WAS SENT HERE--BECAUSE CARMELINA BAEZ, [employer] 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 EMS REPORT THAT THE CERAMIC TILE INSTALLER AT THE HOME, PROMPTLY LEFT THE RESIDENCE SOON THEY ARRIVED, AND WILL NOT BE ACCOMPANYING PT TO ER. 0520--I CONTACTED CARMELINA ON PT'S ARRIVAL TO ER, SHE HAS NOT BEEN CONTACTED AT ANY TIME BY ANYONE OR [facility] ABOUT THIS PT, AND KNOWS NOTHING ABOUT HER. SHE WILL BE IN TO EVALUATE PT. PT STATES SHE HAS HAD NOSEBLEEDS "ALL MY LIFE" BUT NEVER ONE THIS BAD PT TAKES 81 MG ASPIRIN DAILY, OTHERWISE NO BLOOD THINNERS. NO OTHER INFORMATION IS OBTAINABLE FROM PT DUE TO EXTREME HARD OF HEARING/ ESSENTIALLY DEAF, PT CAN READ LIPS TO SOME DEGREE, BUT IS VERY LIMITED IN THAT WELL. ALL PMH IF FROM RECORD FROM [facility]. PT CANNOT GIVE HISTORY AND PT HAS NEVER BEEN TO THIS FACILITY Allergies and Home Medications Allergies Coded Allergies: No Known Drug Allergies (Unverified , 01/23/17) Home Medications Allopurinol 100 Mg Tablet, (Reported) Alprazolam 0.5 Mg Tablet, (Reported) Estradiol 42.5 Gm Cream.appl, (Reported) Fentanyl 1 Each Patch.td72, (Reported) Fluticasone Propionate 16 Gm [place].susp, (Reported) Gabapentin 600 Mg Tablet, (Reported) Gemfibrozil 600 Mg Tablet, (Reported) Hydrocodone/Acetaminophen 1 Each Tablet, (Reported) Nystatin 15 Gm Oint...g., (Reported) Omeprazole 20 Mg Capsule., (Reported) Sertraline HCl 25 Mg Tablet, (Reported) Tramadol HCl 50 Mg Tablet, (Reported) Valsartan 160 Mg Tablet, (Reported) Review of Systems Constitutional: other (UNABLE TO OBTAIN ANY RELEVANT INFORMATION FROM PT) Nose: see HPI Past Fpuahei-Caiepj-Gabaau Hx Patient Social History Alcohol Use: Denies Use Recreational Drug Use: No Smoking Status: Former Smoker Type Used: Cigarettes Surgeries History of Surgeries: Yes (BREAST BIOPSY/LUMPECTOMY/AXILLARY NODE DISSECTION; COLECTOMY; COLONOSCOPY; MULTIPLE OTHER UNKNOWN SURGERIES) Surgeries: Abdominal, Bowel Surgery, Breast, Gallbladder Respiratory History of Respiratory Disorde: Yes Respiratory Disorders: Sleep Apnea Cardiovascular History of Cardiac Disorders: Yes Cardiac Disorders: High Cholesterol, Hypertension Neurological History of Neurological Disord: Yes (GUIAAAIN-BARRE) Neurological Disorders: Neuropathy Reproductive System Sexually Transmitted Disease: Yes (GONORRHEA) 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 Genitourinary History of Genitourinary Disor: Yes (INCONTINENCE) Gastrointestinal History of Gastrointestinal Di: No Musculoskeletal History of Musculoskeletal Dis: Yes (RESTLESS LEGS; GAIT DISTURBANCE) Musculoskeletal Disorders: Arthritis Endocrine History of Endocrine Disorders: Yes Endocrine Disorders: Diabetes, Non-Insulin dep HEENT History of HEENT Disorders: Yes (NOSEBLEEDS; PERTUSSIS; ) HEENT Disorders: Cataract Hearing Impairment: Deaf, Bilateral Hearing Aide Cancer History of Cancer: Yes Cancer: Breast Did You Recieve Any Treatments: Yes Type of Tx Receive: Chemotherapy, Radiation, Surgical Intervention Psychosocial History of Psychiatric Problem: Yes Behavioral Health Disorders: Anxiety, Depression Integumentary History of Skin or Integumenta: Yes (CHICKEN POX; STAGE 3 ULCER OF LEFT ANKLE) Physical Exam Vital Signs Vital Sign - Last 12Hours 01/23/17 01/23/17 05:17 10:51 Temp 96.4 Pulse 66 Resp 18 B/P (MAP) 159/75 (103) Pulse Ox 93 O2 Delivery Room Air O2 Flow Rate 8.00 FiO2 40 General Appearance: no apparent distress, obese, other (CLOTHING AND FACE COVERED IN BLOOD --APPEARS RECENTL) Ears: bilateral ear other (EXTREMELY HARD OF HEARING) Nose: other (DRIED BLOOD AROUND PACKING/RAPID RHINO TO LEFT NARE. NO ACTIVE BLEEDING FROM ANTERIOR NOSE AT THIS TIME) Mouth/Throat: other (LARGE AMOUNT OF DRIED / OLD BLOOD IN MOUTH AND ON LIPS, AND IN POSTERIOR PHARYNX. ) Cardiovascular: regular rate, rhythm Respiratory: normal breath sounds Gastrointestinal: soft Neurologic/Psychiatric: no motor/sensory deficits, alert, oriented x 3 Skin: normal color, warm/dry Progress/Results/Core Measures Results/Orders Lab Results Laboratory Tests Test 01/23/17 05:55 Range/Units White Blood Count 6.6 4.3-11.0 10^3/uL Red Blood Count 3.87 L 4.35-5.85 10^6/uL Hemoglobin 12.8 11.5-16.0 G/DL Hematocrit 38 35-52 % Mean Corpuscular Volume 98 80-99 FL Mean Corpuscular Hemoglobin 33 25-34 PG Mean Corpuscular Hemoglobin Concent 34 32-36 G/DL Red Cell Distribution Width 12.8 10.0-14.5 % Platelet Count 180 130-400 10^3/uL Mean Platelet Volume 8.9 7.4-10.4 FL Neutrophils (%) (Auto) 66 42-75 % Lymphocytes (%) (Auto) 20 12-44 % Monocytes (%) (Auto) 10 0-12 % Eosinophils (%) (Auto) 3 0-10 % Basophils (%) (Auto) 1 0-10 % Neutrophils # (Auto) 4.4 1.8-7.8 X 10^3 Lymphocytes # (Auto) 1.3 1.0-4.0 X 10^3 Monocytes # (Auto) 0.7 0.0-1.0 X 10^3 Eosinophils # (Auto) 0.2 0.0-0.3 10^3/uL Basophils # (Auto) 0.1 0.0-0.1 10^3/uL Prothrombin Time 14.2 12.2-14.7 SEC INR Comment 1.1 0.8-1.4 Activated Partial Thromboplast Time 37 H 24-35 SEC Sodium Level 137 135-145 MMOL/L Potassium Level 4.7 3.6-5.0 MMOL/L Chloride Level 103 98-107 MMOL/L Carbon Dioxide Level 22 21-32 MMOL/L Anion Gap 12 5-14 MMOL/L Blood Urea Nitrogen 39 H 7-18 MG/DL Creatinine 0.87 0.60-1.30 MG/DL Estimat Glomerular Filtration Rate > 60 BUN/Creatinine Ratio 45 Glucose Level 186 H 70-105 MG/DL Calcium Level 9.8 8.5-10.1 MG/DL Total Bilirubin 0.3 0.1-1.0 MG/DL Aspartate Amino Transf (AST/SGOT) 16 5-34 U/L Alanine Aminotransferase (ALT/SGPT) 21 0-55 U/L Alkaline Phosphatase 66 40-136 U/L Total Protein 7.1 6.4-8.2 GM/DL Albumin 4.1 3.2-4.5 GM/DL My Orders Orders - MINOO SMITH DO Saline Lock/Iv-Start (01/23/17 05:30) Cbc With Automated Diff (01/23/17 05:30) Comprehensive Metabolic Panel (01/23/17 05:30) Protime With Inr (01/23/17 05:30) Partial Thromboplastin Time (01/23/17 05:30) Ns Iv 1000 Ml (Sodium Chloride 0.9%) (01/23/17 05:30) Vital Signs/I&O Vital Sign - Last 12Hours 01/23/17 01/23/17 01/23/17 01/23/17 12:00 16:00 19:20 20:20 Temp 98.4 99.3 Pulse 66 80 Resp 18 20 B/P (MAP) 145/74 (97) 168/94 (118) Pulse Ox 92 97 94 O2 Delivery Face Tent Face Tent Face Tent Face Tent O2 Flow Rate 8.00 8.00 FiO2 30 01/23/17 01/23/17 20:20 22:34 Temp 99.0 Pulse 85 Resp 24 B/P (MAP) 160/72 (101) Pulse Ox 94 94 O2 Delivery Face Tent Face Tent O2 Flow Rate 8.00 FiO2 30 Departure Communication (Admissions) Progress Notes 0605--CARMELINA BAEZ HERE TO SEE PT. CARE TURNED OVER TO HER. SHE HAS CONTACTED DR. PENG, AND HE WILL BE TAKING PT TO SURGERY FOR REPAIR. Impression Impression: Primary Impression: Recurrent epistaxis Disposition: ADMITTED INPATIENT Condition: Stable Admissions Decision to Admit Reason: Admit from ER (General) Decision to Admit/Date: Jan 23, 2017 Time/Decision to Admit Time: 06:30 Departure-Patient Inst. Referrals: ANNEL ZAVALA DO (PCP/Family) Primary Care Physician MINOO SMITH DO Jan 23, 2017 05:43
[2017-01-23 06:00] LABS: BASOPHILS # (AUTO) 0.1 10^3/uL (0.0-0.1); BASOPHILS % (AUTO) 1 % (0-10); EOSINOPHILS # (AUTO) 0.2 10^3/uL (0.0-0.3); EOSINOPHILS % (AUTO) 3 % (0-10); LYMPHOCYTES # (AUTO) 1.3 X 10^3 (1.0-4.0); LYMPHOCYTES % (AUTO) 20 % (12-44); MEAN CORPUSCULAR HEMOGLOBIN 33 PG (25-34); MEAN CORPUSCULAR HGB CONC 34 G/DL (32-36); MEAN CORPUSCULAR VOLUME 98 FL (80-99); MEAN PLATELET VOLUME 8.9 FL (7.4-10.4); MONOCYTES # (AUTO) 0.7 X 10^3 (0.0-1.0); MONOCYTES % (AUTO) 10 % (0-12); NEUTROPHILS # (AUTO) 4.4 X 10^3 (1.8-7.8); NEUTROPHILS % (AUTO) 66 % (42-75); PLATELET COUNT 180 10^3/uL (130-400); RED BLOOD COUNT 3.87 10^6/uL (4.35-5.85); RED CELL DISTRIBUTION WIDTH 12.8 % (10.0-14.5); WHITE BLOOD COUNT 6.6 10^3/uL (4.3-11.0)
[2017-01-23 06:12] LABS: INR 1.1 (0.8-1.4); PROTHROMBIN TIME PATIENT 14.2 SEC (12.2-14.7)
[2017-01-23 06:20] LABS: ALANINE AMINOTRANSFERASE 21 U/L (0-55); ALBUMIN 4.1 GM/DL (3.2-4.5); ANION GAP 12 MMOL/L (5-14); ASPARTATE AMINO TRANSFERASE 16 U/L (5-34); BILIRUBIN,TOTAL 0.3 MG/DL (0.1-1.0); BLOOD UREA NITROGEN 39 MG/DL (7-18); BUN/CREATININE RATIO 45; CALCIUM 9.8 MG/DL (8.5-10.1); CARBON DIOXIDE 22 MMOL/L (21-32); CHLORIDE 103 MMOL/L (98-107); CREATININE SERUM 0.87 MG/DL (0.60-1.30); GFR ESTIMATED > 60; GLUCOSE 186 MG/DL (70-105); POTASSIUM 4.7 MMOL/L (3.6-5.0); SODIUM 137 MMOL/L (135-145); TOTAL PROTEIN 7.1 GM/DL (6.4-8.2)
[2017-01-23] MEDS ORDERED: ALPR0.5T7 (07:00)
[2017-01-23] MEDS ORDERED: GEMF600T3 (07:00)
[2017-01-23] MEDS ORDERED: ALLO100T (07:00)
[2017-01-23] MEDS ORDERED: SERT25TA5 (07:00)
[2017-01-23] MEDS ORDERED: OMEP20CA12 (07:00)
[2017-01-23] MEDS ORDERED: TRAM50TA2 (07:00)
[2017-01-23] MEDS ORDERED: VALS160T28 (07:00)
[2017-01-23] MEDS ORDERED: ESTR42.52 (07:00)
[2017-01-23] MEDS ORDERED: HYDR-3812 (07:00)
[2017-01-23] MEDS ORDERED: FENT1PAT6 (07:00)
[2017-01-23] MEDS ORDERED: NYST15OI13 (07:00)
[2017-01-23] MEDS ORDERED: FLUT16SP22 (07:00)
[2017-01-23] MEDS ORDERED: GABA600T2 (07:00)
--- OUTSIDE RECORDS SUMMARY | 2017-01-23 07:10 | XMS REPORT | Clinical Summary ---
Author Author [facility] Organization [facility] Address Unknown Phone Unavailable Care Team Providers Care Staff Attorney Name Role Phone PCP Unavailable Source Comments Some departments are not documenting in the electronic medical record. If you do not see the information that you expected, contact Release of Information in the Health Information Management department at [phone] for further assistance in locating additional records.[facility] Allergies No Known Allergies Current Medications Prescription [...] Exudative age-related macular degeneration of left eye ([facility]) 03/25/2015 Last Assessment & Plan: inactive Corneal [...]
--- OUTSIDE RECORDS SUMMARY | 2017-01-23 07:11 | XMS REPORT | Continuity of Care Document ---
Author Author [facility] Organization [facility] Address Unknown Phone Unavailable Allergies [...] RANDY, BOBAN N Ot 715.89 12/30/2014 RANDY, REGINADLOAN N Ot V10.3 12/30/2014 RANDY, REGINALDOAN N [...] 12/02/2015 DANNY PADILLA N Ot Z79.899 OTHER SNF (CURRENT) DRUG THERAPY 12/02/2015 DANNY PADILLA N [...] 12/08/2015 DANNY PADILLA N Ot Z79.899 OTHER SNF (CURRENT) DRUG THERAPY 12/08/2015 DANNY PADILLA N [...] 12/23/2015 DANNY PADILLA N Ot Z79.899 OTHER SNF (CURRENT) DRUG THERAPY 12/23/2015 DANNY PADILLA N [...] 12/31/2015 DANNY PADILLA N Ot Z79.899 OTHER PRINCIPAL TECHNOLOGIST (CURRENT) DRUG THERAPY 12/31/2015 DANNY PADILLA N Ot Z85.3 PERSONAL HISTORY OF MALIGNANT NEOPLASM O 12/31/2015 DANNY PADILAL N Ot Z92.3 PERSONAL HISTORY OF IRRADIATION 09/17/2016 Ruiz CARRILLO, Carlos Gamez L90.0 Lichen sclerosus et atrophicus 12/10/2016 DANNY PADILLA Ot E08.40 DIABETES DUE TO UNDERLYING CONDITION W D 12/10/2016 DANNY PADILLA Ot G62.9 POLYNEUROPATHY, UNSPECIFIED 12/10/2016 DANNY PADILLA Ot Z08 ENCNTR FOR FOLLOW-UP EXAM AFTER TRTMT FO 12/10/2016 DANNY PADILLA Ot Z79.899 OTHER SNF (CURRENT) DRUG THERAPY 12/10/2016 DANNY PADILLA Ot Z85.3 PERSONAL HISTORY OF MALIGNANT NEOPLASM O 12/10/2016 DANNY PADILLA Ot Z92.3 PERSONAL HISTORY OF IRRADIATION 01/14/2017 Ruiz CARRILLO, Carlos Gamez N32.81 Overactive Bladder Procedures There is no data. Results There is no data. Encounters ACCT No. Visit Date/Time Discharge Status Pt. Type Provider Facility Loc./Unit Complaint [id number] 12/09/2016 12:14:00 12/09/2016 23:59:59 CLS Outpatient DANNY PADILLA [facility] ONC [id number] 12/02/2015 10:42:00 12/02/2015 23:59:59 CLS Outpatient DANNY PADILLA [facility] FS [id number] 11/26/2014 11:00:00 11/26/2014 23:59:59 CLS Outpatient DANNY PADILLA [facility] FS [id number] 11/20/2013 10:16:00 11/20/2013 23:59:59 CLS Outpatient DANNY PADILLA [facility] FS [id number] 11/28/2012 12:59:00 11/28/2012 23:59:59 CLS Outpatient DANNY PADILLA [facility] FS [id number] 11/30/2011 13:04:00 Document Registration [id number] 11/03/2010 12:51:00 Document Registration [id number] 11/04/2009 13:41:00 Document Registration [id number] 01/15/2017 10:32:00 ACT Unknown Carlos Melchor MD
[2017-01-23] MEDS ORDERED: MUPIROCIN 2% OINT 22 GM (BACTROBAN) TUBE ONE (07:20)
[2017-01-23] MEDS ORDERED: LIDOCAINE/EPI 1%-1:200,000 (XYLOCAINE) 10 ML VIAL ONE (07:20)
[2017-01-23] MEDS ORDERED: PHENYLEPHRINE 0.5% NASAL SPR (NEO-SYNEPHRINE) REG ONE ×2 (07:20→08:15)
[2017-01-23] MEDS ORDERED: COCAINE HCL 4% 2 ML SYR ONE (07:20)
[2017-01-23] MEDS ORDERED: LIDOCAINE PF 2% 5 ML (XYLOCAINE) VIAL ONE (07:23)
[2017-01-23] MEDS ORDERED: SUCCINYLCHOLINE INJ 100 MG/5 ML SYR ONE (07:23)
[2017-01-23] MEDS ORDERED: SEVOFLURANE (ULTANE) 15 ML INHAL SOLN ONE (07:23)
[2017-01-23] MEDS ORDERED: proPOfol 200 MG/20 ML (DIPRIVAN) VIAL IV ONE (07:23)
[2017-01-23] MEDS ORDERED: LACTATED RINGERS 1,000 ML IV ONE (07:23)
[2017-01-23] MEDS ORDERED: fentaNYL INJECTION 100 MCG/2 ML AMP ONE ×2 (07:24→07:50)
--- NOTE | 2017-01-23 07:24 | Progress Note-Standard ---
Standard Progress Note Progress Notes/Assess & Plan Date Seen by Provider: Jan 23, 2017 Time Seen by Provider: 07:00 Progress/Assessment & Plan Ent-Claudia 01/23 History and Physical CC: Recurrent Epistaxis HPI: Patient presetned to the ER brougth by EMS from [facility]. History of recurrent epistaxis which has not been stopped with multiple attempts at packing. Bleeding down back of throat. Distant history of a right sided nosebleed 3 years ago. PMHX: hard of hearing Meds: include aspirin Exam: Nose-packing in place on left with bleeding posteriorly down throat Right side minimal bleeding ORal Cavity-with oozing seen posteriorly coming down from nose Imp: Recurrent Left Posterior Epistaxis Rec: 1. Patient has a posterior epistaxis on left side. Seh will need eEUA with endoscpic repair and or packing. Consent obtained voer phone from her brother. Will proceed to the OR once crew is here Plan on keeping her for 24 hours post-op and t hen home on tuesday Final Diagnosis Left Posterior Epistaxis MARYANN PENG MD Jan 23, 2017 7:24 am
--- NOTE | 2017-01-23 07:26 | Progress Note-Pre Operative ---
Pre-Operative Progress Note H&P Reviewed The H&P was reviewed, patient examined and no changes noted. Date Seen by Provider: Jan 23, 2017 Time Seen by Provider: 07:00 Date H&P Reviewed: Jan 23, 2017 Time H&P Reviewed: 07:00 Pre-Operative Diagnosis: Recurrent Left Posteiror Epistaxis MARYANN PENG MD Jan 23, 2017 7:26 am
[2017-01-23] MEDS ORDERED: ONDANSETRON 4 MG/2 ML (SDV) Z0FRAN ONE ×2 (07:50→08:27)
[2017-01-23] MEDS ORDERED: morphine INJ 10 MG/ML 1ML (SYR OR VIAL) ONE (07:50)
[2017-01-23] MEDS ORDERED: LACTATED RINGERS 1,000 ML IV SCH (08:00)
[2017-01-23] MEDS ORDERED: COCAINE HCL 4% 2 ML SYR TOP ONE (08:15)
[2017-01-23] MEDS ORDERED: LIDOCAINE/EPI 1%-1:200,000 (XYLOCAINE) 10 ML VIAL INJ ONE (08:15)
[2017-01-23] MEDS ORDERED: ceFAZolin 1,000 MG (ANCEF) VIAL ONE (08:24)
[2017-01-23] MEDS ORDERED: ceFAZolin INJECTION 1,000 MG in NS (IVPB) 50 ML IV ONE (08:30)
--- NOTE | 2017-01-23 08:31 | Progress Note-Post Operative ---
Post-Operative Progess Note Surgeon (s)/Resident Services Director (s) Surgeon MARYANN PENG MD Resident Services Director n/a Pre-Operative Diagnosis Recurrent Left Posteiror Epistaxis Post-Operative Diagnosis same Post-Op Procedure Note Date of Procedure: Jan 23, 2017 Name of Procedure Performed: Endoscopic REpair of Left Posterior Epistaxis Description & Findings Description and Findings: n/a Anesthesia Type get Estimated Blood Loss 50cc Packing surgicel packing soaked with bactroban. Specimen(s) collected/removed none MARYANN PENG MD Jan 23, 2017 8:31 am
[2017-01-23] MEDS ORDERED: ONDANSETRON 4 MG/2 ML (SDV) Z0FRAN IVP PRN (08:45)
[2017-01-23] MEDS ORDERED: morphine INJ 10 MG/ML 1ML (SYR OR VIAL) IVP PRN (08:45)
[2017-01-23] MEDS ORDERED: ACETAMINOPHEN 500 MG TAB (TYLENOL) PO PRN (08:45)
[2017-01-23] MEDS ORDERED: HYDROcodone/APAP 5 MG/325 MG (LORTAB) TAB PO PRN (08:45)
[2017-01-23] MEDS ORDERED: fentaNYL INJECTION 100 MCG/2 ML AMP IVP PRN (08:45)
[2017-01-23] MEDS ORDERED: ACETAMINOPHEN 325 MG TABLET/CAPLET (TYLENOL) PO PRN (11:00)
[2017-01-23] MEDS: D5 1/2 NS W/KCL 20 MEQ/L 1,000 ML IV SCH ×2 (11:20→21:35)
[2017-01-23 12:00] VITALS: BP 145/74
[2017-01-23] MEDS: ceFAZolin INJECTION 1,000 MG in NS (IVPB) 50 ML IV SCH ×2 (14:37→21:34)
[2017-01-23 16:00] VITALS: BP 168/94
[2017-01-23 20:20] VITALS: BP 160/72
[2017-01-23] MEDS: MUPIROCIN 2% OINT 22 GM (BACTROBAN) TUBE TOP SCH (21:34)
[2017-01-23] MEDS: PHENYLEPHRINE 0.5% NASAL SPR (NEO-SYNEPHRINE) REG PRN (22:00)
[2017-01-23 23:55] VITALS: BP 161/69
[2017-01-24 03:32] VITALS: BP 139/65
[2017-01-24] MEDS: ceFAZolin INJECTION 1,000 MG in NS (IVPB) 50 ML IV SCH (05:30)
--- NOTE | 2017-01-24 06:00 | Progress Note-Standard ---
Standard Progress Note Progress Notes/Assess & Plan Date Seen by Provider: Jan 24, 2017 Time Seen by Provider: 06:00 Progress/Assessment & Plan Mario 01/23 History and Physical CC: Recurrent Epistaxis HPI: Patient presetned to the ER brougth by EMS from [facility]. History of recurrent epistaxis which has not been stopped with multiple attempts at packing. Bleeding down back of throat. Distant history of a right sided nosebleed 3 years ago. PMHX: hard of hearing Meds: include aspirin Exam: Nose-packing in place on left with bleeding posteriorly down throat Right side minimal bleeding ORal Cavity-with oozing seen posteriorly coming down from nose Imp: Recurrent Left Posterior Epistaxis Rec: 1. Patient has a posterior epistaxis on left side. Seh will need eEUA with endoscpic repair and or packing. Consent obtained voer phone from her brother. Will proceed to the OR once crew is here Plan on keeping her for 24 hours post-op and t hen home on tuesday Mario Minimal bleeding since surgery-use neosynephrine once or twice for oozing out front of nose-none posteriorly-think the oozing was from all the packing that has been placed and her aspirin-no significant bleeding - john paul diet On antibiotics because of packing OP-dry Nose-no new blood seen-left nares has a small amount of old blood present will discahrge after breakfast RTC-2 tenisha [facility] Epistaxis discahrge instructions Discharge prescriptions in chart Final Diagnosis Left Posterior Epistaxis MARYANN PENG MD Jan 24, 2017 6:00 am
[2017-01-24] MEDS: PHENYLEPHRINE 0.5% NASAL SPR (NEO-SYNEPHRINE) REG PRN ×2 (06:57→09:22)
[2017-01-24 08:00] VITALS: BP 173/78
[2017-01-24] MEDS: MUPIROCIN 2% OINT 22 GM (BACTROBAN) TUBE TOP SCH (09:22)
[2017-01-24 09:35] VITALS: BP 139/65
== END 2017-01-24 09:35 | disposition home or self-care (01) ==
LOC: EDUNIT# 05:15 → ER 05:16 → SDC 07:06 → 4TH 09:35 → SDC 01-24 09:35
PROVIDERS: ATTEND Otolaryngology Otolaryngology/Facial Plastic Surgery
DX: R04.0 Epistaxis (principal); G47.30 Sleep apnea, unspecified; E78.00 Pure hypercholesterolemia, unspecified; I10 Essential (primary) hypertension; M19.91 Primary osteoarthritis, unspecified site; E11.9 Type 2 diabetes mellitus without complications; G25.81 Restless legs syndrome; G61.0 Guillain-Barre syndrome; L89.523 Pressure ulcer of left ankle, stage 3; Z79.82 Long term (current) use of aspirin
CPT/HCPCS: 36415; 80053; 85025; 85610; 85730; 93005; 96360

== ENCOUNTER 2018-03-07 19:17 | Inpatient (IN) | payer MEDICARE, MEDICAID ==
[~2018-03-07] VITALS: Ht 160 cm; Wt 74.6 kg
[~2018-03-07 19:17] MED LIST: ACHD5005; ALLO100T PO; ALPR0.5T7 PO; ESTR42.52; FENT1PAT6; FLUT16SP22; GBPN600T PO; GEMF600T8 PO; NYST15OI13; OMEP20CA12 PO; SERT25TA5; TRAM50TA2 PO; VALS160T29 PO
--- NOTE | 2018-03-07 22:40 | NUR ---
JOSLYN GARCIA admitted to room 426-1, with an admitting diagnosis of SBO, on 03/07/18 from [facility] via EMS , accompanied by EMS STAFF.JOSLYN GARCIA introduced to surroundings, call light, bed controls, phone, TV, temperature control, lights, meal times, smoking policy, visitor policy, side rail policy, bathrooms and showers. Patient Rights given to patient in the handbook. JOSLYN GARCIA verbalizes understanding that [facility] is not responsible for the loss or damage to any personal effects or valuables that are kept in the patients possessions during their hospitalization.
--- NOTE | 2018-03-07 23:00 | NUR ---
DR. BARROW CALL AND INFORMED HIS PT HAS ARRIVED PER EMS. NEW ORDERS RECEIVED.
--- OUTSIDE RECORDS SUMMARY | 2018-03-07 23:18 | XMS REPORT | Clinical Summary ---
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 MD Circumscribed scleroderma Overactive Bladder Active Carlos Melchor MD Hypertonicity of bladder Fecal incontinence 787.60 Active Carlos Melchor MD Full incontinence of feces Medication List Medication Instructions Start Date Stop Date Generic Name NDC Status Provider Patient Instruction ASPIRIN 81 MG ORAL TABLET DELAYED RELEASE 1 po qd ASPIRIN 32113143028 Active Carlos Melchor MD Active CALCIUM 600 + D 600-200 MG-UNIT ORAL TABLET 1 tab by mouth daily CALCIUM CARB-CHOLECALCIFEROL 43036632671 Active Carlos Melchor MD Active VALSARTAN 160 MG ORAL TABLET 1 tab by mouth daily VALSARTAN 95752006292 Active Carlos Melchor MD Active GABAPENTIN 600 MG ORAL TABLET 1 tab by mouth tid GABAPENTIN 84960977298 Active Carlos Melchor MD Active LOPID 600 MG ORAL TABLET 1 tab by mouth daily GEMFIBROZIL 28056293979 Active Carlos Melchor MD Active ALLOPURINOL 100 MG ORAL TABLET 1 tab by mouth daily ALLOPURINOL 28901540753 Active Carlos Melchor MD Active MULTIVITAMINS ORAL CAPSULE 1 cap by mouth daily MULTIPLE VITAMIN 35614981961 Active Carlos Melchor MD Active OMEPRAZOLE 20 MG ORAL CAPSULE DELAYED RELEASE 1 tablet by mouth daily OMEPRAZOLE 07594070176 Active Carlos Melchor MD Active NYSTATIN 545683 UNIT/GM EXTERNAL CREAM apply to rash TID PRN NYSTATIN 82956617142 Active Carlos Melchor MD Active [id number]-ZFSPYCXRS-XY 3.5-69528-7 OPHTHALMIC SUSPENSION 2 drops in affected eye [id number] 34750983721 Active Carlos Melchor MD Active TRAMADOL HCL 50 MG ORAL TABLET 1 po tid prn TRAMADOL HCL 87838698908 Active Carlos Melchor MD Active ALPRAZOLAM 0.5 MG ORAL TABLET 1 tab by mouth daily ALPRAZOLAM 80092421287 Active Carlos Melchor MD Active ACETAMINOPHEN EXTRA STRENGTH 500 MG ORAL TABLET 1 tab by mouth prn ACETAMINOPHEN 03411574578 Active Carlos Melchor MD Active POLYVINYL ALCOHOL 1.4 % OPHTHALMIC SOLUTION 1 drop POLYVINYL ALCOHOL 38882576020 Active Carlos Melchor MD Active KP VITAMIN D 1000 UNIT ORAL CAPSULE 1 cap by mouth daily CHOLECALCIFEROL 34981774267 Active Carlos Melchor MD Active ALEVE 220 MG ORAL TABLET 2 tabs by mouth daily NAPROXEN SODIUM 93564826804 Active aCrlos Melchor MD Active SERTRALINE HCL 25 MG ORAL TABLET 1 tab by mouth daily SERTRALINE HCL 92209616454 Active Carlos Melchor MD Active FLUTICASONE PROPIONATE 50 MCG/ACT NASAL SUSPENSION 1 spray each nostril twice daily until bottle empty FLUTICASONE PROPIONATE 12305581635 Active Carlos Melchor MD Active Vital Signs Date Name Value Unit Range Description blood pressure, diastolic 68 mm[Hg] BP wesley blood pressure, systolic 118 mm[Hg] BP sys height E&M 59 [in_us] Bdy height temperature E&M 98.3 [degF] Body temperature weight E&M 162 [lb_av] Weight Measured blood pressure, diastolic 72 mm[Hg] BP wesley blood pressure, systolic 136 mm[Hg] BP sys pulse rate E&M 71 /min Heart rate temperature E&M 98.2 [degF] Body temperature weight E&M 160 [lb_av] Weight Measured blood pressure, diastolic 70 mm[Hg] BP wesley [...] No Encounters Code Encounter Date Provider Facility CPT-86254 Level 3 Est. Patient 14:21:57 CDT Carlos Melchor MD [facility] CPT-85345 Level 3 Est. 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
--- OUTSIDE RECORDS SUMMARY | 2018-03-07 23:18 | XMS REPORT | Clinical Summary ---
Author Author Admin, E Organization [facility] Address Unknown Phone Unavailable Allergies, Adverse Reactions, [...] TABLET DELAYED RELEASE 1 po qd ASPIRIN 82151023231 Active Carlos Melchor MD Active CALCIUM 600 + D 600-200 MG-UNIT ORAL TABLET 1 tab by mouth daily CALCIUM CARB-CHOLECALCIFEROL 42168777878 Active Carlos Melchor MD Active VALSARTAN 160 MG ORAL TABLET 1 tab by mouth daily VALSARTAN 24655604291 Active Carlos Melchor MD Active GABAPENTIN 600 MG ORAL TABLET 1 tab by mouth tid GABAPENTIN 90534466900 Active Carlos Melchor MD Active LOPID 600 MG ORAL TABLET 1 tab by mouth daily GEMFIBROZIL 58073348123 Active Carlos Melchor MD Active ALLOPURINOL 100 MG ORAL TABLET 1 tab by mouth daily ALLOPURINOL 62511396020 Active Carlos Melchor MD Active MULTIVITAMINS ORAL CAPSULE 1 cap by mouth daily MULTIPLE VITAMIN 10605327818 Active Carlos Melchor MD Active OMEPRAZOLE 20 MG ORAL CAPSULE DELAYED RELEASE 1 tablet by mouth daily OMEPRAZOLE 90131110193 Active Carlos Melchor MD Active NYSTATIN 904978 UNIT/GM EXTERNAL CREAM apply to rash TID PRN NYSTATIN 56890690047 Active Carlos Melchor MD Active [id number]-[id number] 3.5-13388-0 OPHTHALMIC SUSPENSION 2 drops in affected eye [id number]-[id number] 72477708572 Active Carlos Melchor MD Active TRAMADOL HCL 50 MG ORAL TABLET 1 po tid prn TRAMADOL HCL 20144687134 Active Carlos Melchor MD Active ALPRAZOLAM 0.5 MG ORAL TABLET 1 tab by mouth daily ALPRAZOLAM 66211033768 Active Carlos Melchor MD Active ACETAMINOPHEN EXTRA STRENGTH 500 MG ORAL TABLET 1 tab by mouth prn ACETAMINOPHEN 80884401545 Active Carlos Melchor MD Active POLYVINYL ALCOHOL 1.4 % OPHTHALMIC SOLUTION 1 drop POLYVINYL ALCOHOL 40206500979 Active Carlos Melchor MD Active KP VITAMIN D 1000 UNIT ORAL CAPSULE 1 cap by mouth daily CHOLECALCIFEROL 26266832140 Active Carlos Melchor MD Active ALEVE 220 MG ORAL TABLET 2 tabs by mouth daily NAPROXEN SODIUM 11158258277 Active Carlos Melchor MD Active SERTRALINE HCL 25 MG ORAL TABLET 1 tab by mouth daily SERTRALINE HCL 58223329728 Active Carlos Melchor MD Active FLUTICASONE PROPIONATE 50 MCG/ACT NASAL SUSPENSION 1 spray each nostril twice daily until bottle empty FLUTICASONE PROPIONATE 39100784367 Active Carlos Melchor MD Active Advance Directives Directive Description Start Date PERMISSION TO SHARE Vital Signs Date Name Value Unit Range [...] temperature weight E&M 158 [lb_av] Weight Measured Diagnostic Results Date Name [...] (dipstick) 0.2 protein, urine, semiquantitative (dipstick) negative Encounters Code Encounter Date Provider Facility CPT-01976 Level 3 Est. Patient 14:21:57 CDT Carlos Melchor MD [facility] CPT-45824 Level 3 Est. 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
--- OUTSIDE RECORDS SUMMARY | 2018-03-07 23:18 | XMS REPORT | Clinical Summary ---
Author Author [facility] Organization [facility] Address Unknown Phone Unavailable Care Team Providers Care Marketing Information Coordinator Name Role Phone Parvez Rosario MD Unavailable Source Comments Some departments are not documenting in the electronic medical record. If you do not see the information that you expected, contact Release of Information in the Health Information Management department at [phone] for further assistance in locating additional records.[facility] Allergies No Known Allergies Medications End Date Status Medication Sig Dispensed Refills Start Date Active ALPRAZolam (XANAX) 0.5 mg Take 0.5 mg 0 tablet by mouth at bedtime as needed. Active valsartan (DIOVAN) 160 mg Take 160 mg 0 tablet by mouth daily. Active tolterodine LA(+) (DETROL Take 4 mg by 0 LA) 4 mg capsule mouth daily. Active CALCIUM PO Take by 0 mouth. Active allopurinol (ZYLOPRIM) Take 100 mg 0 100 mg tablet by mouth daily. Active MULTIVITAMIN WITH Take by 0 MINERALS (ONE-A-DAY 50 mouth. PLUS PO) Active omeprazole DR(+) Take 20 mg by 0 (PRILOSEC) 20 mg capsule mouth daily. Active cephalexin (KEFLEX) 500 Take 500 mg 0 mg capsule by mouth four times daily. Active aspirin EC 81 mg tablet Take 81 mg by 0 mouth daily. Active cholecalciferol (VITAMIN Take 1,000 0 D-3) 1,000 units tablet Units by mouth daily. Active NAPROXEN SODIUM (ALEVE Take by 0 PO) mouth. 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 noted stromal vessels today Resolved Problems Problem Noted Date Resolved Date AMD (age related macular degeneration) right eye 03/25/2015 03/25/2015 Family History Medical History Relation Name Comments Coronary Artery Disease Father Diabetes Father Diabetes Mother Amblyopia Neg Hx Blindness Neg Hx Cancer Neg Hx Cataract Neg Hx Glaucoma Neg Hx Hypertension Neg Hx Macular Degen Neg Hx Neurologic Disorder Neg Hx Retinal Detachment Neg Hx Strabismus Neg Hx Stroke Neg Hx Thyroid Disease Neg Hx Relation Name Status Comments Father Mother Social History Date Tobacco Use Types Packs/Day Years Used Never Smoker Smokeless Tobacco: Never Used Alcohol Use Drinks/Week oz/Week Comments No 0 Standard 0.0 drinks or equivalent Sex Assigned at Date Recorded Not on file Industry Job Start Date Occupation Not on file Not on file Not on file Travel End Travel History Travel Start No recent travel history available. Last Filed Vital Signs Time Taken Vital Sign Reading 06/16/2015 2:22 PM CDT Blood Pressure 133/70 06/16/2015 2:22 PM CDT Pulse 68 - Temperature - - Respiratory Rate - - Oxygen Saturation - - Inhaled Oxygen - Concentration 06/16/2015 2:22 PM CDT Weight 62.1 kg (137 lb) 06/16/2015 2:22 PM CDT Height 149.9 cm (4' 11") 06/16/2015 2:22 PM CDT Body Mass Index 27.67 Plan of Treatment Health Maintenance Due Date Last Done Comments PHYSICAL (COMPREHENSIVE) 1947 EXAM DTAP/TDAP VACCINES (1 - 1960 Tdap) COLORECTAL CANCER 1992 SCREENING SHINGLES RECOMBINANT 1992 VACCINE (1 of 2) OSTEOPOROSIS 12/13/2007 SCREENING/MONITORING PNEUMONIA (PCV13/PPSV23) 12/13/2007 VACCINES (1 of 2 - PCV13) INFLUENZA VACCINE 09/07/2017 Results Not on filefrom Last 3 Months
--- OUTSIDE RECORDS SUMMARY | 2018-03-07 23:19 | XMS REPORT | Clinical Summary ---
Author Author Admin, E Organization [facility] Address Unknown Phone Unavailable Allergies, Adverse Reactions, [...] TABLET DELAYED RELEASE 1 po qd ASPIRIN 13253575638 Active Carlos Melchor MD Active CALCIUM 600 + D 600-200 MG-UNIT ORAL TABLET 1 tab by mouth daily CALCIUM CARB-CHOLECALCIFEROL 25987090300 Active Carlos Melchor MD Active VALSARTAN 160 MG ORAL TABLET 1 tab by mouth daily VALSARTAN 10927143501 Active Carlos Melchor MD Active GABAPENTIN 600 MG ORAL TABLET 1 tab by mouth tid GABAPENTIN 11112425148 Active Carlos Melchor MD Active LOPID 600 MG ORAL TABLET 1 tab by mouth daily GEMFIBROZIL 47780605169 Active Carlos Melchor MD Active ALLOPURINOL 100 MG ORAL TABLET 1 tab by mouth daily ALLOPURINOL 85171566505 Active Carlos Melchor MD Active MULTIVITAMINS ORAL CAPSULE 1 cap by mouth daily MULTIPLE VITAMIN 45672114637 Active Carlos Melchor MD Active OMEPRAZOLE 20 MG ORAL CAPSULE DELAYED RELEASE 1 tablet by mouth daily OMEPRAZOLE 08704332367 Active Carlos Melchor MD Active NYSTATIN 868289 UNIT/GM EXTERNAL CREAM apply to rash TID PRN NYSTATIN 95837750444 Active Carlos Melchor MD Active EFPYBHRK-[id number]-JW 3.5-88547-7 OPHTHALMIC SUSPENSION 2 drops in affected eye UQEFOECT-[id number]-GT 50270066985 Active Carlos Melchor MD Active TRAMADOL HCL 50 MG ORAL TABLET 1 po tid prn TRAMADOL HCL 32389072585 Active Carlos Melchor MD Active ALPRAZOLAM 0.5 MG ORAL TABLET 1 tab by mouth daily ALPRAZOLAM 75357162376 Active Carlos Melchor MD Active ACETAMINOPHEN EXTRA STRENGTH 500 MG ORAL TABLET 1 tab by mouth prn ACETAMINOPHEN 30785791446 Active Carlos Melchor MD Active POLYVINYL ALCOHOL 1.4 % OPHTHALMIC SOLUTION 1 drop POLYVINYL ALCOHOL 69080215642 Active Carlos Melchor MD Active KP VITAMIN D 1000 UNIT ORAL CAPSULE 1 cap by mouth daily CHOLECALCIFEROL 95827917689 Active Carlos Melchor MD Active ALEVE 220 MG ORAL TABLET 2 tabs by mouth daily NAPROXEN SODIUM 02046930562 Active Carlos Melchor MD Active SERTRALINE HCL 25 MG ORAL TABLET 1 tab by mouth daily SERTRALINE HCL 41891889911 Active Carlos Melchor MD Active FLUTICASONE PROPIONATE 50 MCG/ACT NASAL SUSPENSION 1 spray each nostril twice daily until bottle empty FLUTICASONE PROPIONATE 67875632589 Active Carlos Melchor MD Active Vital Signs [...] No Encounters Code Encounter Date Provider Facility CPT-45622 Level 3 Est. Patient 14:21:57 CDT Carlos Melchor MD [facility] CPT-49909 Level 3 Est. Patient 14:22:47 GANDY DANCER Carlos Melchor MD [facility] CPT-89345 Level 3 New Patient 15:16:53 CDT Carlos Melchor MD [facility] Procedures Code Procedure Name Date Entry Date Standard Description CPT-12545 Dil F ureth int 15:16:54 CDT CPT-63232 Bladder Scan 15:16:53 CDT
--- OUTSIDE RECORDS SUMMARY | 2018-03-07 23:19 | XMS REPORT | Clinical Summary ---
Author Author Admin, E Organization [facility] Address Unknown Phone Unavailable Allergies, Adverse [...] TABLET DELAYED RELEASE 1 po qd ASPIRIN 59673938794 Active Carlos Melchor MD Active CALCIUM 600 + D 600-200 MG-UNIT ORAL TABLET 1 tab by mouth daily CALCIUM CARB-CHOLECALCIFEROL 48683347174 Active Carlos Melchor MD Active VALSARTAN 160 MG ORAL TABLET 1 tab by mouth daily VALSARTAN 24841644059 Active Carlos Melchor MD Active GABAPENTIN 600 MG ORAL TABLET 1 tab by mouth tid GABAPENTIN 10634442549 Active Carlos Melchor MD Active LOPID 600 MG ORAL TABLET 1 tab by mouth daily GEMFIBROZIL 90462643436 Active Carlos Melchor MD Active ALLOPURINOL 100 MG ORAL TABLET 1 tab by mouth daily ALLOPURINOL 17930394885 Active Carlos Melchor MD Active MULTIVITAMINS ORAL CAPSULE 1 cap by mouth daily MULTIPLE VITAMIN 31553195390 Active Carlos Melchor MD Active OMEPRAZOLE 20 MG ORAL CAPSULE DELAYED RELEASE 1 tablet by mouth daily OMEPRAZOLE 89073690827 Active Carlos Melchor MD Active NYSTATIN 337630 UNIT/GM EXTERNAL CREAM apply to rash TID PRN NYSTATIN 15115246457 Active Carlos Melchor MD Active [id number]-[id number]-KW 3.5-97150-2 OPHTHALMIC SUSPENSION 2 drops in affected eye [id number]-SFYQIZOGG-AE 43436352422 Active Carlos Melchor MD Active TRAMADOL HCL 50 MG ORAL TABLET 1 po tid prn TRAMADOL HCL 46849795786 Active Carlos Melchor MD Active ALPRAZOLAM 0.5 MG ORAL TABLET 1 tab by mouth daily ALPRAZOLAM 42011991360 Active Carlos Melchor MD Active ACETAMINOPHEN EXTRA STRENGTH 500 MG ORAL TABLET 1 tab by mouth prn ACETAMINOPHEN 28473451627 Active Carlos Melchor MD Active POLYVINYL ALCOHOL 1.4 % OPHTHALMIC SOLUTION 1 drop POLYVINYL ALCOHOL 50959336618 Active Carlos Melchor MD Active KP VITAMIN D 1000 UNIT ORAL CAPSULE 1 cap by mouth daily CHOLECALCIFEROL 24285488392 Active Carlos Melchor MD Active ALEVE 220 MG ORAL TABLET 2 tabs by mouth daily NAPROXEN SODIUM 53622174860 Active Carlos Melchor MD Active SERTRALINE HCL 25 MG ORAL TABLET 1 tab by mouth daily SERTRALINE HCL 19403104919 Active Carlos Melchor MD Active FLUTICASONE PROPIONATE 50 MCG/ACT NASAL SUSPENSION 1 spray each nostril twice daily until bottle empty FLUTICASONE PROPIONATE 68190485952 Active Carlos Melchor MD Active Vital Signs Date Name Value Unit Range Description blood pressure, diastolic 72 mm[Hg] BP wesley [...] No Encounters Code Encounter Date Provider Facility CPT-69725 Level 3 Est. Patient 14:22:47 REPORTS ANALYST Carlos Melchor MD [facility] CPT-40702 Level 3 New Patient 15:16:53 CDT Carlos Melchor MD [facility] Procedures Code Procedure Name Date Entry Date Standard Description CPT-67802 Dil F ureth int 15:16:54 CDT CPT-12265 Bladder Scan 15:16:53 CDT
--- OUTSIDE RECORDS SUMMARY | 2018-03-07 23:19 | XMS REPORT | Clinical Summary ---
Author Author Admin, E Organization [facility] Address Unknown Phone Unavailable Allergies, [...] TABLET DELAYED RELEASE 1 po qd ASPIRIN 53455361440 Active Carlos Melchor MD Active CALCIUM 600 + D 600-200 MG-UNIT ORAL TABLET 1 tab by mouth daily CALCIUM CARB-CHOLECALCIFEROL 05691315572 Active Carlos Melchor MD Active VALSARTAN 160 MG ORAL TABLET 1 tab by mouth daily VALSARTAN 63724105147 Active Carlos Melchor MD Active GABAPENTIN 600 MG ORAL TABLET 1 tab by mouth tid GABAPENTIN 43021452037 Active Carlos Melchor MD Active LOPID 600 MG ORAL TABLET 1 tab by mouth daily GEMFIBROZIL 93928029109 Active Carlos Melchor MD Active ALLOPURINOL 100 MG ORAL TABLET 1 tab by mouth daily ALLOPURINOL 87582294357 Active Carlos Melchor MD Active MULTIVITAMINS ORAL CAPSULE 1 cap by mouth daily MULTIPLE VITAMIN 18068282877 Active Carlos Melchor MD Active OMEPRAZOLE 20 MG ORAL CAPSULE DELAYED RELEASE 1 tablet by mouth daily OMEPRAZOLE 88287523646 Active Carlos Melchor MD Active NYSTATIN 510783 UNIT/GM EXTERNAL CREAM apply to rash TID PRN NYSTATIN 39687538357 Active Carlos Melchor MD Active [id number]-[id number]-SC 3.5-39882-4 OPHTHALMIC SUSPENSION 2 drops in affected eye [id number] 08611012829 Active Carlos Melchor MD Active TRAMADOL HCL 50 MG ORAL TABLET 1 po tid prn TRAMADOL HCL 02664173078 Active Carlos Melchor MD Active ALPRAZOLAM 0.5 MG ORAL TABLET 1 tab by mouth daily ALPRAZOLAM 16931346574 Active Carlos Melchor MD Active ACETAMINOPHEN EXTRA STRENGTH 500 MG ORAL TABLET 1 tab by mouth prn ACETAMINOPHEN 37309631322 Active Carlos Melchor MD Active POLYVINYL ALCOHOL 1.4 % OPHTHALMIC SOLUTION 1 drop POLYVINYL ALCOHOL 87211313317 Active Carlos Melchor MD Active KP VITAMIN D 1000 UNIT ORAL CAPSULE 1 cap by mouth daily CHOLECALCIFEROL 69062580667 Active Carlos Melchor MD Active ALEVE 220 MG ORAL TABLET 2 tabs by mouth daily NAPROXEN SODIUM 73095602620 Active Carlos Melchor MD Active SERTRALINE HCL 25 MG ORAL TABLET 1 tab by mouth daily SERTRALINE HCL 03211104409 Active Carlos Melchor MD Active FLUTICASONE PROPIONATE 50 MCG/ACT NASAL SUSPENSION 1 spray each nostril twice daily until bottle empty FLUTICASONE PROPIONATE 03657574342 Active Carlos Melchor MD Active Vital Signs [...] No Encounters Code Encounter Date Provider Facility CPT-21401 Level 3 Est. Patient 14:21:57 CDT Carlos Melchor MD [facility] CPT-69290 Level 3 Est. 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
--- OUTSIDE RECORDS SUMMARY | 2018-03-07 23:20 | XMS REPORT | Clinical Summary ---
Author Author Admin, E Organization [facility] Address Unknown Phone Unavailable Allergies, Adverse [...] TABLET DELAYED RELEASE 1 po qd ASPIRIN 94376726271 Active Carlos Melchor MD Active CALCIUM 600 + D 600-200 MG-UNIT ORAL TABLET 1 tab by mouth daily CALCIUM CARB-CHOLECALCIFEROL 12448147772 Active Carlos Melchor MD Active VALSARTAN 160 MG ORAL TABLET 1 tab by mouth daily VALSARTAN 51576869162 Active Carlos Melchor MD Active GABAPENTIN 600 MG ORAL TABLET 1 tab by mouth tid GABAPENTIN 66557085735 Active Carlos Melchor MD Active LOPID 600 MG ORAL TABLET 1 tab by mouth daily GEMFIBROZIL 76192584515 Active Carlos Melchor MD Active ALLOPURINOL 100 MG ORAL TABLET 1 tab by mouth daily ALLOPURINOL 92385804774 Active Carlos Melchor MD Active MULTIVITAMINS ORAL CAPSULE 1 cap by mouth daily MULTIPLE VITAMIN 78970972094 Active Carlos Melchor MD Active OMEPRAZOLE 20 MG ORAL CAPSULE DELAYED RELEASE 1 tablet by mouth daily OMEPRAZOLE 95407927367 Active Carlos Melchor MD Active NYSTATIN 555365 UNIT/GM EXTERNAL CREAM apply to rash TID PRN NYSTATIN 29758110364 Active Carlos Melchor MD Active [id number]-LAAHPTDBF-MH 3.5-64208-3 OPHTHALMIC SUSPENSION 2 drops in affected eye [id number]-[id number]-TV 56207085353 Active Carlos Melchor MD Active TRAMADOL HCL 50 MG ORAL TABLET 1 po tid prn TRAMADOL HCL 53003999267 Active Carlos Melchor MD Active ALPRAZOLAM 0.5 MG ORAL TABLET 1 tab by mouth daily ALPRAZOLAM 16874857602 Active Carlos Melchor MD Active ACETAMINOPHEN EXTRA STRENGTH 500 MG ORAL TABLET 1 tab by mouth prn ACETAMINOPHEN 59633690970 Active Carlos Melchor MD Active POLYVINYL ALCOHOL 1.4 % OPHTHALMIC SOLUTION 1 drop POLYVINYL ALCOHOL 53201041858 Active Carlos Melchor MD Active KP VITAMIN D 1000 UNIT ORAL CAPSULE 1 cap by mouth daily CHOLECALCIFEROL 04690295003 Active Carlos Melchor MD Active ALEVE 220 MG ORAL TABLET 2 tabs by mouth daily NAPROXEN SODIUM 83214889973 Active Carlos Melchor MD Active SERTRALINE HCL 25 MG ORAL TABLET 1 tab by mouth daily SERTRALINE HCL 81493837969 Active Carlos Melchor MD Active FLUTICASONE PROPIONATE 50 MCG/ACT NASAL SUSPENSION 1 spray each nostril twice daily until bottle empty FLUTICASONE PROPIONATE 37443233577 Active Carlos Melchor MD Active Vital Signs [...] No Encounters Code Encounter Date Provider Facility CPT-37684 Level 3 Est. Patient 14:22:47 RADIO OFFICER Carlos Melchor MD [facility] CPT-85004 Level 3 New Patient 15:16:53 CDT Carlos Melchor MD [facility] Procedures Code Procedure Name Date Entry Date Standard Description CPT-58482 Dil F ureth int 15:16:54 CDT CPT-57507 Bladder Scan 15:16:53 CDT
--- OUTSIDE RECORDS SUMMARY | 2018-03-07 23:20 | XMS REPORT ---
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 Active 181277631660463 Problem Umbilical hernia K42.9 Active 502244559 Problem General medical exam Z00.00 Active 505064949 Problem DM 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 Active 77703101 Problem Hypertriglyceridemia E78.1 Active 957230402 Problem Falls frequently R29.6 Active 061566004 Problem History of breast cancer Z85.3 Active 153344594 Problem Anxiety F41.9 Active 35505914 Problem Neuropathy G62.9 Active 366516341 Problem Hearing loss H91.90 Active 62454590 Problem Cataracts, bilateral H26.9 Active 26957475 Problem History of diabetes mellitus Z86.39 Active 784231459 Problem Verruca plantaris B07.0 Active 72651528 Problem History of gonorrhea Z86.19 Active 625627933 Problem History of gout Z87.39 Active 087001441 ALLERGIES No Known Allergies ENCOUNTERS Encounter Location Date Diagnosis [facility] [id number] [place] [address] Jul, Callus of foot L84 [facility] [id number] [address] May, [facility] [address] [place] [address] Jul, [facility] [id number] [address] Jul, Dysuria R30.0 ; Vaginal discharge N89.8 and HTN ( hypertension) [address] [place] [address] [place] [address] Jul, [place] or callus L84 and DM 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 [place] [id number] [place] [address] June, Deformity of left foot M21.962 ; Callus of foot L84 and DM 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 [place] [id number] [place] [address] June, [place] [address] [address] May, Dysuria R30.0 ; Umbilical hernia K42.9 and Abdominal pain R10.[address] [address] Apr, Exostosis M89.8X9 ; Onychomycosis B35.1 and DM 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 [place] [id number] [place] [address] Mar, Dysuria R30.0 ; Vaginal discharge N89.8 ; UTI (urinary tract infection) N39.0 and Psoriasis L40.9 [place] [id number] [place] [address] Mar, [place] [id number] [place] [address] Mar, [place] [id number] [place] [address] Mar, Hypertriglyceridemia E78.1 ; Neuropathy G62.9 ; Cataracts, bilateral H26.9 ; Hearing loss H91.90 ; History of gout Z87.39 ; Anxiety F41.9 ; History of breast cancer Z85.3 ; History of Guillain-[place] syndrome Z86.69 ; History of diabetes mellitus Z86.39 and HTN (hypertension) I10 [place] [address] [facility] [id number] [place] [address] Feb, 2015 General medical exam Z00.00 ; Umbilical hernia K42.9 ; Neuropathy G62.9 ; Cataracts, bilateral H26.9 ; Hearing loss H91.90 ; History of gout Z87.39 ; Anxiety F41.9 ; History of breast cancer Z85.3 ; History of Guillain-[place] syndrome Z86.69 ; Falls frequently R29.6 ; History of diabetes mellitus Z86.39 ; Verruca plantaris B07.0 and History of gonorrhea Z86.19 IMMUNIZATIONS No Known Immunizations SOCIAL HISTORY Never Assessed REASON FOR VISIT SORE ON FOOT-[place], left foot has a sore PLAN OF CARE Activity Details Follow Up prn Reason: VITAL SIGNS Height 5'2" in 2017-07-18 Weight 153.3 lbs 2017-07-18 Temperature 97.9 degrees Fahrenheit 2017-07-18 Heart Rate 60 bpm 2017-07-18 Respiratory Rate 20 2017-07-18 BMI 28.04 kg/m2 2017-07-18 Blood pressure systolic 148 mmHg 2017-07-18 Blood pressure diastolic 80 mmHg 2017-07-18 MEDICATIONS Medication Instructions Dosage Frequency Start Date End Date Duration Status One Daily 50 Plus 1 tablet Orally Once a day 1 tablet 24h Active Allopurinol 100 MG Orally Once a day MUST HAVE APPT FOR REFILL 1 tablet Active Alprazolam 0.5 MG Orally Three times a day 1 tablet 8h Active Omeprazole 20 mg Orally Once a day 1 capsules 24h May, Active Gabapentin 600 MG Orally Three times a day 1 tablet 8h Active Medrol (David) Active Aspirin 81 MG Orally Once a day 1 tablet 24h Not-Taking Calcium 600-200 MG-UNIT Orally Once a day 1 tablet 24h Active Flagyl 500 MG 1 tablet Active Valsartan 160 MG Orally Once a day 1 tablet 24h Active Gemfibrozil 600 MG Orally Twice a day 30 minutes before breakfast and 30 minutes before dinner 1 tablet Mar, Active Nystatin 859067 UNIT/GM Externally 4 times a day 1 application to affected area 6h 10 days Active Tolterodine Tartrate ER 4MG Orally Once a day MUST HAVE APPT FOR REFILL 1 capsule Not-Taking Singulair 10 MG Orally Once a day 1 tablet 24h Active Aleve 220 MG Orally every 12 hrs 1 tablet as needed 12h Not-Taking RESULTS No Results PROCEDURES Procedure Date Ordered Result Body Site [facility] VISIT ESTABLISHED PATIENT July 18, 2017 INSTRUCTIONS MEDICATIONS ADMINISTERED No Known Medications MEDICAL (GENERAL) HISTORY Type Description Date Medical History Anxiey Medical History Personal history of other disorders of nervous system and sense organs Medical History Cataracts Medical History Hx of venereal disease Medical History collapsed colon Medical History Diabetes TypeII Medical History Gout Medical History Breast Cancer Medical History Hearing Loss Surgical History Cataract Surgery Surgical History Colon Resection Surgical History Cholecystecomy Surgical History colonoscopy Hospitalization History Rehab Hospitalization History [place] Hospitalization History Breast cancer biopsy
--- OUTSIDE RECORDS SUMMARY | 2018-03-07 23:21 | XMS REPORT | Continuity of Care Document ---
Author Author [facility] Organization [facility] Address Unknown Phone Unavailable Allergies Active Description Code Type Severity Reaction Onset Reported/Identified Relationship to Patient Clinical Status Yes No Known Drug Allergies [id number] Drug Allergy Unknown N/A 01/23/2017 Medications There is no data. Problems Date Dx Coded Attending Type Code Diagnosis Diagnosed By 12/20/2013 RANDY, BOBAN N Ot 356.9 12/20/2013 RANDY, BOBAN N Ot 715.89 12/20/2013 RANDY, BOBAN N Ot V10.3 12/20/2013 RANDY, BOBAN N Ot V58.66 12/20/2013 RANDY, BOBAN N Ot V58.69 12/20/2013 RANDY, BOBAN N Ot V67.1 01/02/2014 RANDY, BOBAN N Ot 356.9 01/02/2014 RANDY, BOBAN N Ot 715.89 01/02/2014 RANDY, BOBAN N Ot V10.3 01/02/2014 RANDY, BOBAN N Ot V58.66 01/02/2014 RANDY, BOBAN N Ot V58.69 01/02/2014 RANDY, BOBAN N Ot V67.1 12/24/2014 RANDY, BOBAN N Ot E08.40 12/24/2014 RANDY, BOBAN N Ot G62.9 12/24/2014 RANDY, BOBAN N [...] RANDY, BOBAN N Ot 715.89 12/30/2014 RANDY, BOBAN N Ot V10.3 12/30/2014 RANDY, BOBAN N Ot V58.66 12/30/2014 RANDY, BOBAN N Ot V58.69 12/30/2014 RANDY, BOBAN N Ot V67.1 12/30/2014 RANDY, BOBAN N Ot 356.9 12/30/2014 RANDY, BOBAN N Ot 715.89 12/30/2014 RANDY, REGINALDOAN N Ot V10.3 12/30/2014 RANDY, BOBAN N Ot V58.66 12/30/2014 RANDY, BOBAN N Ot V58.69 12/30/2014 RANDY, BOBAN N Ot V67.1 12/30/2014 RANDY, BOBAN N Ot E08.40 12/30/2014 RANDY, BOBAN N Ot G62.9 12/30/2014 RANDY, BOBAN N Ot Z08 12/30/2014 RANDY, BOBAN N Ot Z79.899 12/30/2014 RANDY, BOBAN N Ot Z85.3 12/30/2014 RANDY, BOBAN N Ot Z92.3 12/30/2014 RANDY, BOBAN N Ot E08.40 12/30/2014 RANDY, BOBAN N Ot G62.9 12/30/2014 RANDY, BOBAN N Ot Z08 12/30/2014 RANDY, BOBAN N Ot Z79.899 12/30/2014 RANDY, BOBAN N Ot Z85.3 12/30/2014 RANDY, BOBAN N Ot Z92.3 12/02/2015 RANDY, BOBAN N Ot E08.40 DIABETES DUE TO UNDERLYING CONDITION W D 12/02/2015 RANDY, BOBAN N Ot G62.9 POLYNEUROPATHY, UNSPECIFIED 12/02/2015 RANDY, BOBAN N Ot Z08 ENCNTR FOR FOLLOW-UP EXAM AFTER TRTMT FO 12/02/2015 DANNY PADILLA N Ot Z79.899 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 12/02/2015 DANNY PADILLA N Ot Z85.3 PERSONAL HISTORY OF MALIGNANT NEOPLASM O 12/02/2015 DANNY PADILLA N Ot Z92.3 PERSONAL HISTORY OF IRRADIATION 12/08/2015 DANNY PADILLA N Ot E08.40 DIABETES DUE TO UNDERLYING CONDITION W D 12/08/2015 DANNY PADILLA N Ot G62.9 POLYNEUROPATHY, UNSPECIFIED 12/08/2015 DANNY PADILLA N Ot Z08 ENCNTR FOR FOLLOW-UP EXAM AFTER TRTMT FO 12/08/2015 DANNY PADILLA N Ot Z79.899 OTHER INTERMEDIATE (CURRENT) DRUG THERAPY 12/08/2015 RANDYDANNY SHUKLA N Ot Z85.3 PERSONAL HISTORY OF MALIGNANT NEOPLASM O 12/08/2015 RANDYDANNY SHUKLA N Ot Z92.3 PERSONAL HISTORY OF IRRADIATION 12/23/2015 DANNY PADILLA N Ot E08.40 DIABETES DUE TO UNDERLYING CONDITION W D 12/23/2015 DANNY PADILLA N Ot G62.9 POLYNEUROPATHY, UNSPECIFIED 12/23/2015 DANNY PADILLA N Ot Z08 ENCNTR FOR FOLLOW-UP EXAM AFTER TRTMT FO 12/23/2015 DANNY PADILLA N Ot Z79.899 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 12/23/2015 DANNY PADILLA N Ot Z85.3 PERSONAL HISTORY OF MALIGNANT NEOPLASM O 12/23/2015 DANNY PADILLA N Ot Z92.3 PERSONAL HISTORY OF IRRADIATION 12/31/2015 DANNY PADILLA N Ot E08.40 DIABETES DUE TO UNDERLYING CONDITION W D 12/31/2015 DANNY PADILLA N Ot G62.9 POLYNEUROPATHY, UNSPECIFIED 12/31/2015 RANDYDANNY SHUKLA N Ot Z08 ENCNTR FOR FOLLOW-UP EXAM AFTER TRTMT FO 12/31/2015 DANNY PADILLA N Ot Z79.899 OTHER INTERMEDIATE (CURRENT) DRUG THERAPY 12/31/2015 RANDYDANNY N Ot Z85.3 PERSONAL HISTORY OF MALIGNANT NEOPLASM O 12/31/2015 RANDYDANNY SHUKLA N Ot Z92.3 PERSONAL HISTORY OF IRRADIATION 09/17/2016 Carlos Melchor MD L90.0 Lichen sclerosus et atrophicus 12/10/2016 DANNY PADILLA Ot E08.40 DIABETES DUE TO UNDERLYING CONDITION W D 12/10/2016 DANNY PADILLA Kodi Ot G62.9 POLYNEUROPATHY, UNSPECIFIED 12/10/2016 DANNY PADILLA Ot Z08 ENCNTR FOR FOLLOW-UP EXAM AFTER TRTMT FO 12/10/2016 DANNY PADILLA Kodi Ot Z79.899 OTHER INTERMEDIATE (CURRENT) DRUG THERAPY 12/10/2016 DANNY PADILLA Kodi Ot Z85.3 PERSONAL HISTORY OF MALIGNANT NEOPLASM O 12/10/2016 DANNY PADILLA Kodi Ot Z92.3 PERSONAL HISTORY OF IRRADIATION 01/14/2017 Carlos Melchor MD N32.81 Overactive Bladder 01/23/2017 Ot 356.9 IDIO PERIPH NEURPTHY NOS 01/23/2017 Ot V10.3 HX OF BREAST MALIGNANCY 01/23/2017 Ot V58.66 LONG-TERM ( CURRENT) USE OF ASPIRIN 01/23/2017 Ot V58.69 OTH MED,LT, CURRENT USE 01/23/2017 Ot V67.1 RADIOTHERAPY FOLLOW-UP 01/23/2017 DANNY PADILLA N Ot 356.9 IDIO PERIPH NEURPTHY NOS 01/23/2017 DANNY PADILLA N Ot 715.89 OSTEOARTHROSIS-MULT SITE 01/23/2017 DANNY PADILLA N Ot V10.3 HX OF BREAST MALIGNANCY 01/23/2017 DANNY PADILLA N Ot V58.66 LONG-TERM (CURRENT) USE OF ASPIRIN 01/23/2017 DANNY PADILLA N Ot V58.69 OTH MED,LT,CURRENT USE 01/23/2017 DANNY PADILLA N Ot V67.1 RADIOTHERAPY FOLLOW-UP 01/23/2017 DANNY PADILLA N Ot 356.9 IDIO PERIPH NEURPTHY NOS 01/23/2017 DANNY PADILLA N Ot 715.89 OSTEOARTHROSIS-MULT SITE 01/23/2017 DANNY PADILLA N Ot V10.3 HX OF BREAST MALIGNANCY 01/23/2017 DANNY PADILLA N Ot V58.66 LONG-TERM (CURRENT) USE OF ASPIRIN 01/23/2017 DANNY PADILLA N Ot V58.69 OTH MED,LT,CURRENT USE 01/23/2017 DANNY PADILLA N Ot V67.1 RADIOTHERAPY FOLLOW-UP 01/23/2017 DANNY PADILLA N Ot E08.40 DIABETES DUE TO UNDERLYING CONDITION W D 01/23/2017 DANNY PADILLA N Ot G62.9 POLYNEUROPATHY, UNSPECIFIED 01/23/2017 DANNY PADILLA N Ot Z08 ENCNTR FOR FOLLOW-UP EXAM AFTER TRTMT FO 01/23/2017 DANNY PADILLA N Ot Z79.899 OTHER INTERMEDIATE (CURRENT) DRUG THERAPY 01/23/2017 DANNY PADILLA N Ot Z85.3 PERSONAL HISTORY OF MALIGNANT NEOPLASM O 01/23/2017 DANNY PADILLA N Ot Z92.3 PERSONAL HISTORY OF IRRADIATION 01/23/2017 DANNY PADILLA N Ot E08.40 DIABETES DUE TO UNDERLYING CONDITION W D 01/23/2017 DANNY PADILLA N Ot G62.9 POLYNEUROPATHY, UNSPECIFIED 01/23/2017 DANNY PADILLA N Ot Z08 ENCNTR FOR FOLLOW-UP EXAM AFTER TRTMT FO 01/23/2017 DANNY PADILLA N Ot Z79.899 OTHER INTERMEDIATE (CURRENT) DRUG THERAPY 01/23/2017 DANNY PADILLA N Ot Z85.3 PERSONAL HISTORY OF MALIGNANT NEOPLASM O 01/23/2017 DANNY PADILLA N Ot Z92.3 PERSONAL HISTORY OF IRRADIATION 01/23/2017 DANNY PADILLA N Ot E08.40 DIABETES DUE TO UNDERLYING CONDITION W D 01/23/2017 DANNY PADILLA N Ot G62.9 POLYNEUROPATHY, UNSPECIFIED 01/23/2017 DANNY PADILLA N Ot Z08 ENCNTR FOR FOLLOW-UP EXAM AFTER TRTMT FO 01/23/2017 DANNY PADILLA N Ot Z79.899 OTHER INTERMEDIATE (CURRENT) DRUG THERAPY 01/23/2017 DANNY PADILLA N Ot Z85.3 PERSONAL HISTORY OF MALIGNANT NEOPLASM O 01/23/2017 RANDY REGINALDOKALLI N Ot Z92.3 PERSONAL HISTORY OF IRRADIATION 01/24/2017 DANISH CARRILLO, MARYANN Spicer Ot E11.9 TYPE 2 DIABETES MELLITUS WITHOUT COMPLIC 01/24/2017 DANISH CARRILLO, MARYANN Spicer Ot E78.00 PURE HYPERCHOLESTEROLEMIA, UNSPECIFIED 01/24/2017 MARYANN PENG MD Ot G25.81 RESTLESS LEGS SYNDROME 01/24/2017 MARYANN PENG MD Ot G47.30 SLEEP APNEA, UNSPECIFIED 01/24/2017 MARYANN PENG MD 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 01/24/2017 MARYANN PENG MD Ot I10 ESSENTIAL (PRIMARY) HYPERTENSION 01/24/2017 MARYANN PENG MD Ot 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, STAGE 3 01/24/2017 MARYANN PENG MD Ot M19.91 PRIMARY OSTEOARTHRITIS, UNSPECIFIED SITE 01/24/2017 MARYANN PENG MD Ot R04.0 EPISTAXIS 01/24/2017 MARYANN PENG MD Ot Z79.82 INTERMEDIATE (CURRENT) USE OF ASPIRIN 01/26/2017 MARYANN PENG MD Ot E11.9 TYPE 2 DIABETES MELLITUS WITHOUT COMPLIC 01/26/2017 MARYANN PENG MD Ot E78.00 PURE HYPERCHOLESTEROLEMIA, UNSPECIFIED 01/26/2017 MARYANN PENG MD Ot G25.81 RESTLESS LEGS SYNDROME 01/26/2017 MARYANN PENG MD Ot G47.30 SLEEP APNEA, UNSPECIFIED 01/26/2017 MARYANN PENG MD 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899 OTHER INTERMEDIATE (CURRENT) DRUG THERAPY 02/02/2017 DANNY PADILLA Ot Z85.3 PERSONAL HISTORY OF MALIGNANT NEOPLASM O 02/02/2017 DANNY PADILLA Ot Z92.3 PERSONAL HISTORY OF IRRADIATION 02/04/2017 DANNY PADILLA Ot E08.40 DIABETES DUE TO UNDERLYING CONDITION W D 02/04/2017 DANNY PADILLA N Ot G62.9 POLYNEUROPATHY, UNSPECIFIED 02/04/2017 DANNY PADILLA N Ot Z08 ENCNTR FOR FOLLOW-UP EXAM AFTER TRTMT FO 02/04/2017 DANNY PADILLA N Ot Z79.899 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 02/04/2017 DANNY PADILLA N Ot Z85.3 PERSONAL HISTORY OF MALIGNANT NEOPLASM O 02/04/2017 DANNY PADILLA N Ot Z92.3 PERSONAL HISTORY OF IRRADIATION 02/23/2017 Ruiz CARRILLO, Carlos Gamez R15.9 Fecal incontinence 03/09/2017 DANNY PADILLA N Ot E08.40 DIABETES DUE TO UNDERLYING CONDITION W D 03/09/2017 DANNY PADILLA N Ot G62.9 POLYNEUROPATHY, UNSPECIFIED 03/09/2017 DANNY PADILLA N Ot Z08 ENCNTR FOR FOLLOW-UP EXAM AFTER TRTMT FO 03/09/2017 DANNY PADILLA N Ot Z79.899 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 03/09/2017 DANNY PADILLA N Ot Z85.3 PERSONAL HISTORY OF MALIGNANT NEOPLASM O 03/09/2017 DANNY PADILLA N Ot Z92.3 PERSONAL HISTORY OF IRRADIATION 03/10/2017 DANNY PADILLA N Ot E08.40 DIABETES DUE TO UNDERLYING CONDITION W D 03/10/2017 DANNY PADILLA N Ot G62.9 POLYNEUROPATHY, UNSPECIFIED 03/10/2017 DANNY PADILLA N Ot Z08 ENCNTR FOR FOLLOW-UP EXAM AFTER TRTMT FO 03/10/2017 DANNY PADILLA N Ot Z79.899 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 Results Test Result Range Complete blood count (CBC) with automated white blood cell (WBC) differential - 01/23/17 05:55 Blood leukocytes automated count (number/volume) 6.6 10*3/uL 4.3-11.0 Blood erythrocytes automated count (number/volume) 3.87 10*6/uL 4.35-5.85 Venous blood hemoglobin measurement (mass/volume) 12.8 g/dL 11.5-16.0 Blood hematocrit (volume fraction) 38 % 35-52 Automated erythrocyte mean corpuscular volume 98 [foz_us] 80-99 Automated erythrocyte mean corpuscular hemoglobin (mass per erythrocyte) 33 pg 25-34 Automated erythrocyte mean corpuscular hemoglobin concentration measurement ( mass/volume) 34 g/dL 32-36 Automated erythrocyte distribution width ratio 12.8 % 10.0-14.5 Automated blood platelet count (count/volume) 180 10*3/uL 130-400 Automated blood platelet mean volume measurement 8.9 [foz_us] 7.4-10.4 Automated blood neutrophils/100 leukocytes 66 % 42-75 Automated blood lymphocytes/100 leukocytes 20 % 12-44 Blood monocytes/100 leukocytes 10 % 0-12 Automated blood eosinophils/100 leukocytes 3 % 0-10 Automated blood basophils/100 leukocytes 1 % 0-10 Blood neutrophils automated count (number/volume) 4.4 10*3 1.8-7.8 Blood lymphocytes automated count (number/volume) 1.3 10*3 1.0-4.0 Blood monocytes automated count (number/volume) 0.7 10*3 0.0-1.0 Automated eosinophil count 0.2 10*3/uL 0.0-0.3 Automated blood basophil count (count/volume) 0.1 10*3/uL 0.0-0.1 PT panel in platelet poor plasma by coagulation assay - 01/23/17 05:55 Prothrombin time (PT) in platelet poor plasma by coagulation assay 14.2 s 12.2-14.7 INR in platelet poor plasma or blood by coagulation assay 1.1 0.8-1.4 Activated partial thromboplastin time (aPTT) in platelet poor plasma bycoagulation assay - 01/23/17 05:55 Activated partial thromboplastin time (aPTT) in platelet poor plasma bycoagulation assay 37 s 24-35 Comprehensive metabolic panel - 01/23/17 05:55 Serum or plasma sodium measurement (moles/volume) 137 mmol/L 135-145 Serum or plasma potassium measurement (moles/volume) 4.7 mmol/L 3.6-5.0 Serum or plasma chloride measurement (moles/volume) 103 mmol/L 98-107 Carbon dioxide 22 mmol/L 21-32 Serum or plasma anion gap determination (moles/volume) 12 mmol/L 5-14 Serum or plasma urea nitrogen measurement (mass/volume) 39 mg/dL 7-18 Serum or plasma creatinine measurement (mass/volume) 0.87 mg/dL 0.60-1.30 Serum or plasma urea nitrogen/creatinine mass ratio 45 NRG Serum or plasma creatinine measurement with calculation of estimated glomerular filtration rate > NRG Serum or plasma glucose measurement (mass/volume) 186 mg/dL 70-105 Serum or plasma calcium measurement (mass/volume) 9.8 mg/dL 8.5-10.1 Serum or plasma total bilirubin measurement (mass/volume) 0.3 mg/dL 0.1-1.0 Serum or plasma alkaline phosphatase measurement (enzymatic activity/volume) 66 U/L 40-136 Serum or plasma aspartate aminotransferase measurement (enzymatic activity/ volume) 16 U/L 5-34 Serum or plasma alanine aminotransferase measurement (enzymatic activity/volume ) 21 U/L 0-55 Serum or plasma protein measurement (mass/volume) 7.1 g/dL 6.4-8.2 Serum or plasma albumin measurement (mass/volume) 4.1 g/dL 3.2-4.5 Encounters ACCT No. Visit Date/Time Discharge Status Pt. Type Provider Facility Loc./Unit Complaint [id number] 08/25/2017 14:55:02 ACT Unknown Carlos Melchor MD [id number] 03/10/2017 00:13:00 03/10/2017 23:59:59 CLS Preadmit DANNY PADILLA [facility] ONC [id number] 12/09/2016 12:14:00 03/09/2017 00:01:00 DIS Outpatient DANNY PADILLA [facility] ONC [id number] 01/23/2017 07:06:00 01/24/2017 09:35:00 DIS Outpatient MARYANN PENG MD [facility] SDC NOSE BLEED [id number] 12/02/2015 10:42:00 12/02/2015 23:59:59 CLS Outpatient DANNY PADILLA [facility] FS [id number] 11/26/2014 11:00:00 11/26/2014 23:59:59 CLS Outpatient DANNY PADILLA [facility] [id number] 11/20/2013 10:16:00 11/20/2013 23:59:59 CLS Outpatient DANNY PADILLA [facility] [id number] 11/28/2012 12:59:00 11/28/2012 23:59:59 CLS Outpatient DANNY PADILLA [facility] [id number] 11/30/2011 13:04:00 Document Registration [id number] 11/03/2010 12:51:00 Document Registration [id number] 11/04/2009 13:41:00 Document Registration
[2018-03-08] VITALS (7 sets, daily range): BP systolic 135–172; BP diastolic 63–82
[2018-03-08] MEDS: NS IV 1000 ML 1,000 ML IV SCH ×2 (00:59→22:14)
[2018-03-08 07:13] LABS: BASOPHILS % (AUTO) 1 % (0-10); EOSINOPHILS # (AUTO) 0.1 10^3/uL (0.0-0.3); EOSINOPHILS % (AUTO) 2 % (0-10); HEMATOCRIT 38 % (35-52); HEMOGLOBIN 12.8 G/DL (11.5-16.0); LYMPHOCYTES # (AUTO) 1.1 X 10^3 (1.0-4.0); LYMPHOCYTES % (AUTO) 15 % (12-44); MEAN CORPUSCULAR HEMOGLOBIN 33 PG (25-34); MEAN CORPUSCULAR HGB CONC 34 G/DL (32-36); MEAN CORPUSCULAR VOLUME 98 FL (80-99); MEAN PLATELET VOLUME 9.5 FL (7.4-10.4); MONOCYTES # (AUTO) 0.8 X 10^3 (0.0-1.0); MONOCYTES % (AUTO) 10 % (0-12); NEUTROPHILS # (AUTO) 5.6 X 10^3 (1.8-7.8); NEUTROPHILS % (AUTO) 73 % (42-75); PLATELET COUNT 185 10^3/uL (130-400); RED CELL DISTRIBUTION WIDTH 13.4 % (10.0-14.5); WHITE BLOOD COUNT 7.7 10^3/uL (4.3-11.0)
[2018-03-08 07:35] LABS: CALCIUM 9.4 MG/DL (8.5-10.1); CREATININE SERUM 0.99 MG/DL (0.60-1.30); POTASSIUM 5.8 MMOL/L (3.6-5.0)
--- NOTE | 2018-03-08 08:18 | Diagnostic Imaging Report ---
INDICATION: Abdominal pain. FINDINGS: There is a left base infiltrate and left pleural effusion. Bowel gas pattern is nonspecific. Nasogastric tube has its tip in the distal stomach. There are surgical clips in the right upper quadrant. There is no free air. IMPRESSION: Nonspecific bowel gas pattern. Left basilar infiltrate and left pleural effusion. Dictated by: Dictated on workstation # [id number]
[2018-03-08] MEDS ORDERED: CALC600T12 PO (09:52)
[2018-03-08] MEDS ORDERED: SERT50TA9 PO (09:52)
[2018-03-08] MEDS ORDERED: MONT10TA24 PO (09:52)
[2018-03-08] MEDS ORDERED: ASPI-983 PO (09:52)
[2018-03-08] MEDS ORDERED: GLIP5TAB13 PO (09:52)
[2018-03-08] MEDS ORDERED: PRIM50TA PO (09:52)
[2018-03-08] MEDS ORDERED: MULT1TAB69 PO (09:52)
[2018-03-08] MEDS ORDERED: MIRA25TA PO (09:52)
[2018-03-08] MEDS ORDERED: ACET-2267 PO (09:56)
[2018-03-08] MEDS ORDERED: FLUT16SP22 NS (09:56)
--- NOTE | 2018-03-08 11:06 | NUR ---
SPOKE WITH THE PATIENT THIS MORNING ABOUT HER MEDICATIONS. SHE STATES SHE KNOWS SOME OF THEM BUT HER HOME HEALTH NURSE FROM [address] IN [place] SETS THEM UP FOR HER IN A PILL DATA ANALYST REPORT WRITER. THE PATIENT STATES THE ONLY THING SHE TAKES IN ADDITION TO WHAT IS IN HER PILL DATA ANALYST REPORT WRITER IS TYLENOL OTC PRN. SHE HAS ALSO FILLED A FLONASE NASAL SPRAY THAT IS NOT ON THE LIST FROM [facility] WHICH I ADDED TO THE MED REC PRN. I HAD A LIST FAXED OVER FROM [address] AND COMPARED IT WITH THE EXT MED HX. HER TRAMADOL IS ON THE LIST FROM [facility] 1/2 TAB BID HOWEVER IT WAS FILLED #60 TABS FOR A 20 DAY SUPPLY. HER VALSARTAN 160MG WAS FILLED ONCE DAILY HOWEVER IT IS ON THE LIST FROM [address] 1/2 TAB DAILY. THE PATIENT DID MENTION SHE CUTS HER BLOOD PRESSURE PILL IN HALF BUT THOUGHT SHE TOOK 1/[address]. [address] DIAS OFFICE IN [place] AND THEY STATE THE DOCUMENTATION ON HER CHART IS STILL TO TAKE 1 OF THE 160MG TABLETS DAILY BUT SOMETIMES DOCUMENTATION IS NOT UPDATED CORRECTLY SO [facility] MAY BE CORRECT. I CALLED [facility] FOR CLARIFICATION ON THE VALSARTAN AND TRAMADOL DOSE. THE NURSE IS OFF DUTY TODAY BUT THEY WERE GOING TO TRY AND CONTACT HER TO CALL ME IN REGARDS TO THESE QUESTIONS. I WILL UPDATE THE MED REC WHEN I HEAR BACK FROM HER. OTC MEDS LISTED ON [facility] MED LIST: ASPIRIN 81MG DAILY CALCIUM 600MG DAILY MULTIVITAMIN DAILY Addendum: 03/08/18 at 1211 by MILADY GALEANO [facility] THE NURSE FROM [facility] CALLED ME BACK AT THIS TIME. SHE VERIFIED SHE HAS ONLY BEEN GIVING THE PATIENT 1/2 TAB OF THE VALSARTAN ONCE DAILY. SHE ALSO STATES THE PATIENT DOES NOT TAKE ANY MORE OF THE TRAMADOL THEN THE 1/2 TAB BID EVEN THOUGH IT IS PRESCRIBED WHERE SHE COULD TAKE MORE OF IT. THE LIST FROM [facility] HAS THE GABAPENTIN TID HOWEVER IT IS MARKED 4 TIMES ON THE TIMING SCHEDULE. NURSE STATES THIS WAS INCREASED TO QID SHE JUST FORGOT TO UPDATE THE SIG ON THE SHEET, THE PRESCRIPTION HAS NOT BEEN RE WRITTEN YET TO REFLECT THAT CHANGE EITHER BUT SHE HAS BEEN ADMINISTERED IT QID. I UPDATED THE MED REC WITH THESE CHANGES AT THIS TIME.
--- NOTE | 2018-03-08 11:19 | History & Physical-Hospitalist ---
History of Present Illness HPI/Chief Complaint Pt is a 77yoCF with a PMH of NIDDMII who presented to outside ER due to bloating. She is a poor historian due to difficulty hearing. She believes her symptoms started 1-2 days ago with bloating. She denies any abdominal pain and her only complaint of pain is in her feet. She states she has had recent abdominal surgery but then when asked when it was she believes it was about 5 years ago. She denies any nausea or vomiting. At the end of our conversation she asked me when the doctor would be in to see her and when I reiterated that I was the doctor she became belligerent about how annoying the NGT was. Discussed with RN who states she has had two soft small BMs today already. Source: patient Date Seen 03/08/18 Time Seen by a Provider: 11:18 Attending Physician Be Rivero MD PCP Vianey Nelson MD Referring Physician Date of Admission Mar 07, 2018 at 23:02 Home Medications & Allergies Home Medications Reviewed patient Home Medication Reconciliation performed by pharmacy medication reconciliations printer technician and/or nursing. Patients Allergies have been reviewed. Allergies Allergies Coded Allergies No Known Drug Allergies (Azsekytbpa89/17/17) Past Vawsuhy-Ynozyz-Droouk Hx Past Med/Social Hx: Reviewed Nursing Past Med/Soc Hx Patient Social History Employed/Student: retired Alcohol Use: Denies Use Recreational Drug Use: No Type Used: Cigarettes Physical Abuse Screen: No Sexual Abuse: No Recent Foreign Travel: No Contact w/other who traveled: No Recent Hopitalizations: No Recent Infectious Disease Expo: No Seasonal Allergies Seasonal Allergies: No Past Medical History Surgeries: Abdominal, Bowel Surgery, Breast, Gallbladder Cardiac: High Cholesterol, Hypertension Neurological: Neuropathy Sexually Transmitted Disease: Yes (GONORRHEA) Menopausal Gastrointestinal: Gastrointestinal Bleed Musculoskeletal: Arthritis Endocrine: Diabetes, Non-Insulin dep HEENT: Cataract Hearing Impairment: Deaf, Bilateral Hearing Aide Cancer: Breast Did You Recieve Any Treatments: Yes What Type of Treatment Did You: Chemotherapy, Radiation, Surgical Intervention Psychosocial: Anxiety History of Blood Disorders: No Review of Systems Constitutional: see HPI EENTM: throat pain (from NGT) Gastrointestinal: abdominal pain; No nausea, No vomiting All Other Systems Reviewed Negative Unless Noted: Yes (Negative excepted noted.) Physical Exam Physical Exam Vital Signs Vital Signs - First Documented 03/08/18 00:05 Temp 98.0 Pulse 89 Resp 18 B/P (MAP) 136/63 (87) Pulse Ox 96 O2 Delivery Nasal Cannula O2 Flow Rate 2.00 Capillary Refill : NONE Height, Weight, BMI Height: 5'3.00" Weight: 164lbs. 7.0oz. 74.743530iu; 29.1 BMI Method:Estimated General Appearance: No Apparent Distress, Chronically ill HEENT: Moist Mucous Membranes; No Scleral Icterus (L), No Scleral Icterus (R); Other (NGT in place) Neck: Non Tender, Supple Respiratory: Lungs Clear, No Respiratory Distress Cardiovascular: Regular Rate, Rhythm, No Murmur Gastrointestinal: Non Tender, Soft, Abnormal Bowel Sounds, Distended (mild) Extremity: Normal Capillary Refill, No Calf Tenderness Neurologic/Psychiatric: Alert, Other (oriented to self and place) Skin: Normal Color, Warm/Dry Results Results/Procedures Labs Laboratory Tests 03/08/18 07:00 Patient resulted labs reviewed. Imaging: Reviewed Imaging Report Assessment/Plan Admission Diagnosis Ileus Admission Status: Inpatient Order (span 2 midnights) Reason for Inpatient Admission: NGT, surgery evaluation Diagnosis/Problems Diagnosis/Problems (1) Ileus Assessment & Plan: NGT in place Surgery consulted, appreciate recs NPO Chloraseptic pain for discomfort in throat Attempt to upload outside films (2) Non-insulin dependent type 2 diabetes mellitus Assessment & Plan: SSI Hold home meds while NPO (3) CAP (community acquired pneumonia) Status: Acute Assessment & Plan: Seen on KUB here this AM Will cover with Katharina Currently on 2lpm NC Qualifiers: Laterality: left Clinical Quality Measures DVT/VTE Risk/Contraindication: Risk Factor Score Per Nursin RFS Level Per Nursing on Admit: 4+=Very High KELLY PRINCE MD Mar 08, 2018 11:19
[2018-03-08] MEDS ORDERED: CHLORASEPTIC SPRAY 177 ML LIQUID MC PRN (11:30)
[2018-03-08] MEDS ORDERED: AZITHROMYCIN INJECTION 500 MG in NS (IVPB) 250 ML IV NR (12:30)
[2018-03-08] MEDS ORDERED: cefTRIAXone FOR IV USE 1,000 MG in NS (IVPB) 50 ML IV NR (12:30)
[2018-03-08] MEDS ORDERED: CATHETER FLUSH 10 ML SYR IV PRN (12:45)
[2018-03-08] MEDS ORDERED: LORazepam INJ 2 MG/ML (ATIVAN) VIAL IVP PRN (14:00)
[2018-03-08] MEDS ORDERED: KETOROLAC 30 MG/ML VIAL IVP NR (14:00)
--- NOTE | 2018-03-08 14:20 | NUR ---
DR ESCALERA HERE, ORDERED ICE CHIPS, NG TUBE CONT TO INTERM LOW WALL SUCTION, RETURN OF BENTLEY COLOR RETURN, C/O HEADACHE, CALL LIGHT WITHIN REACH, ABD SOFT, HYPOACTIVE BOWEL SOUNDS, O2 ON PER NC AT 2 LITERS, HOB ELEVATED, PATIENT VERY HOPLAND
--- NOTE | 2018-03-08 16:09 | NUR ---
TORDAL GIVEN IV FOR C/O HEADACHE AND FEET PAIN, NG TUBE PATENT, ICE CHIPS TAKEN. ABD SOFT, VOIDING ROXANNA COLOR URINE, SMALL BROWN STOOL
--- NOTE | 2018-03-08 21:30 | NUR ---
Patient niece, Ella, called to get updates on patient. Ella is Jazzy's (patients sister in law) daughter and says that if we can't get ahold of Jazzy then we can always contact her. Romeo number is [phone].
[2018-03-09] VITALS: BP 140/67
[2018-03-09 04:00] VITALS: BP 125/70
--- NOTE | 2018-03-09 07:00 | NUR ---
NG removed at this time. Patient tolerated well.
[2018-03-09 08:00] VITALS: BP 159/70
[2018-03-09 08:05] LABS: BASOPHILS % (AUTO) 1 % (0-10); EOSINOPHILS # (AUTO) 0.2 10^3/uL (0.0-0.3); EOSINOPHILS % (AUTO) 2 % (0-10); HEMATOCRIT 41 % (35-52); HEMOGLOBIN 13.3 G/DL (11.5-16.0); LYMPHOCYTES # (AUTO) 1.1 X 10^3 (1.0-4.0); LYMPHOCYTES % (AUTO) 14 % (12-44); MEAN CORPUSCULAR HEMOGLOBIN 32 PG (25-34); MEAN CORPUSCULAR HGB CONC 33 G/DL (32-36); MEAN CORPUSCULAR VOLUME 99 FL (80-99); MEAN PLATELET VOLUME 9.5 FL (7.4-10.4); MONOCYTES # (AUTO) 0.7 X 10^3 (0.0-1.0); MONOCYTES % (AUTO) 10 % (0-12); NEUTROPHILS # (AUTO) 5.5 X 10^3 (1.8-7.8); NEUTROPHILS % (AUTO) 74 % (42-75); PLATELET COUNT 176 10^3/uL (130-400); RED CELL DISTRIBUTION WIDTH 13.1 % (10.0-14.5); WHITE BLOOD COUNT 7.5 10^3/uL (4.3-11.0)
[2018-03-09 08:27] LABS: BUN/CREATININE RATIO 36; CALCIUM 9.5 MG/DL (8.5-10.1); CARBON DIOXIDE 21 MMOL/L (21-32); CHLORIDE 105 MMOL/L (98-107); CREATININE SERUM 0.86 MG/DL (0.60-1.30); GFR ESTIMATED > 60; GLUCOSE 154 MG/DL (70-105); POTASSIUM 4.7 MMOL/L (3.6-5.0); SODIUM 137 MMOL/L (135-145)
--- NOTE | 2018-03-09 10:11 | CONSULTATION REPORT ---
DATE OF SERVICE: ATTENDING PRIMARY CARE PHYSICIAN: Dr. Vianey Nelson. ADMITTING PHYSICIAN: Dr. Rivero. HISTORY OF PRESENT ILLNESS: The patient is a 77-year-old female, who was admitted yesterday for abdominal distention. She does have a hearing loss and also is a very poor historian. She has had abdominal distention for the past few days as well as pain in her feet, which is not a new issue. She has had a multitude of abdominal surgeries. It appears based on her incisions that she has had a midline laparotomy as well as a Jad incision for an open cholecystectomy. She does not report any nausea or no vomiting. She has had a nasogastric tube in place for decompression. She reports that she may have had passed some flatus and has had a soft bowel movement today. Upon examination, her abdomen is slightly distended and she does not have any peritoneal signs or any hernias identified. PAST MEDICAL HISTORY: Hypercholesterolemia, hypertension, peripheral neuropathy, noninsulin dependent diabetes, hearing loss and history of right breast cancer. PAST SURGICAL HISTORY: Laparotomy and colon resection, open cholecystectomy, breast lumpectomy and what sounds to be axillary node dissection followed by chemotherapy and radiation. ALLERGIES: No known drug allergies. MEDICATIONS: Allopurinol 100 mg daily, alprazolam 0.5 mg b.i.d., aspirin 81 mg daily, calcium carbonate 600 mg daily, fluticasone propionate 16 grams daily, gabapentin 600 mg q.i.d., gemfibrozil 600 mg b.i.d., glipizide 5 mg b.i.d. Myrbetriq 25 mg daily, montelukast 10 mg daily, omeprazole 20 mg daily, primidone 50 mg daily, sertraline 50 mg daily, tramadol 25 mg b.i.d. and valsartan 80 mg daily. SOCIAL HISTORY: Negative smoke and negative alcohol. FAMILY HISTORY: Noncontributory. REVIEW OF SYSTEMS: A well-nourished female, who is hard of hearing and also does have some level of cognitive loss. She is otherwise awake and alert and does answer the majority of questions appropriately. She is not experiencing any shortness of breath or difficulty breathing. She has an NG tube placed and does not report any episodes of nausea and vomiting as well as no hematemesis and no coffee ground emesis. She has had two small bowel movements as well as passing flatus; however, nothing significant at this time. She has not experienced any hematemesis nor no coffee ground emesis. No red blood per rectum and no dark tarry stools. No fever, chills and no recent inadvertent weight loss. All other review of systems are negative. PHYSICAL EXAMINATION: VITAL SIGNS: Temperature 97.1, blood pressure 135/65, pulse 60, respirations 18 and pulse ox 94% on 2 liters of nasal cannula. CHEST: Few scattered rales and rhonchi bilaterally. HEART: Regular with no murmurs. EXTREMITIES: There is no lower extremity edema. Negative Homans sign. HEENT: No scleral icterus. NECK: No cervical lymphadenopathy. ABDOMEN: Soft with mild distention. She does have previous incisions including what appears to be a midline laparotomy incision, a Jad incision as well as a previous colostomy site incision, which has been reversed. No peritoneal signs. No hernias. SKIN: Warm and dry. LABORATORY DATA: WBC 7.7, hemoglobin 12.8, hematocrit 38 and platelets 185. ASSESSMENT AND PLAN: This is a 77-year-old female with ileus versus a partial small-bowel obstruction. We will treat her conservatively with a bowel decompression as well as bowel rest and IV fluid hydration. When she does have significant bowel function, we will discharge the NG tube and start a clear liquid diet and advance as tolerated. Job ID: [id number] DocumentID: [id number] Dictated Date: 03/08/2018 14:25:06 Heavy Equipment Field Mechanic Date: 03/08/2018 14:52:55 Dictated By: NEAL ESCALERA MD
[2018-03-09] MEDS: cefTRIAXone FOR IV USE 1,000 MG in NS (IVPB) 50 ML IV SCH (11:19)
--- NOTE | 2018-03-09 11:38 | Progress Note-Hospitalist ---
Subjective HPI/CC On Admission Date Seen by Provider: Mar 09, 2018 Time Seen by Provider: 11:33 Pt is a 77yoCF with a PMH of NIDDMII who presented to outside ER due to bloating. She is a poor historian due to difficulty hearing. She believes her symptoms started 1-2 days ago with bloating. She denies any abdominal pain and her only complaint of pain is in her feet. She states she has had recent abdominal surgery but then when asked when it was she believes it was about 5 years ago. She denies any nausea or vomiting. At the end of our conversation she asked me when the doctor would be in to see her and when I reiterated that I was the doctor she became belligerent about how annoying the NGT was. Discussed with RN who states she has had two soft small BMs today already. Subjective/Events-last exam History limited as patient hard of hearing. No complaints. Sitting in bed about to use commode. Objective Exam Vital Signs Vital Signs Date Time Temp Pulse Resp B/P (MAP) Pulse Ox O2 Delivery O2 Flow Rate FiO2 03/09/18 08:00 98.2 77 20 159/70 (99) 98 Nasal Cannula 3.00 Capillary Refill : NONE General Appearance: No Apparent Distress Respiratory: Lungs Clear, No Respiratory Distress Cardiovascular: Regular Rate, Rhythm, No Murmur Gastrointestinal: Normal Bowel Sounds, Non Tender, Soft Neurologic/Psychiatric: Alert, Other (appears oriented to person and place) Results/Procedures Lab Laboratory Tests 03/09/18 07:45 Patient resulted labs reviewed. Imaging: Reviewed Imaging Report Assessment/Plan Assessment and Plan Assess & Plan/Chief Complaint Ileus Diagnosis/Problems Diagnosis/Problems (1) Ileus Assessment & Plan: NGT DC-ed this AM Surgery consulted, appreciate recs Diet Advanced (2) CAP (community acquired pneumonia) Status: Acute Assessment & Plan: Continue Rocephin and Azithro Qualifiers: Laterality: left Lung location: unspecified part of lung Qualified Codes : J18.9 - Pneumonia, unspecified organism (3) Non-insulin dependent type 2 diabetes mellitus Assessment & Plan: SSI Accu-checks ACHS (4) Discharge planning issues Assessment & Plan: Lives at home with a puddler pile driving at times May need NH placement at discharge Dipper Fish consulted, appreciate recs Clinical Quality Measures DVT/VTE Risk/Contraindication: Risk Factor Score Per Nursin RFS Level Per Nursing on Admit: 4+=Very High KELLY PRINCE MD Mar 09, 2018 11:38
[2018-03-09] MEDS ORDERED: FLUTICASONE NASAL SPRAY (FLONASE) 16 GM BTL NS PRN (11:45)
[2018-03-09] MEDS ORDERED: AZITHROMYCIN INJECTION 250 MG in NS (IVPB) 250 ML IV SCH (12:00)
[2018-03-09] MEDS: inSUlin ASPART (NovoLOG) 1 UNIT/0.01 ML (CHARGE PER UNIT) SC SCH ×3 (13:01→20:43)
[2018-03-09] MEDS: GABAPENTIN 600 MG (NEURONTIN) TAB PO SCH ×3 (13:01→20:39)
--- NOTE | 2018-03-09 13:52 | NUR ---
CM/SS, respond to consult. Mill Labor Supervisor explored patient baseline level of functioning and current supports through two family members, Jazzy Iniguez, [id number] and Ella Iniguez, niece (Jazzy's daughter). Patient is extremely hard of hearing and presents as functional with a lower I.Q. She was never and has no children, believed to have 5 siblings, 4 and 1 sister living. Patient's brother was her Conservator for 47 years until his 08/2017. Jazzy was appointed Successor Conservator with Ella as Standby Conservator 02/02/18, copy obtained from [facility] and in folder. Jazzy and Ella indicate there is a POA in place. IN-HOME SERVICES: Patient resides in her home alone but has Clue Apper paid caregivers through [facility] [place] [phone]. Caregiver hours weekly = 87, 45 day hours and 42 overnight hours. She has workers in a.m. and p.m., then overnight sleep cycle. This will continue if patient is able to return home, SW or case management team should call [facility] to update so they can get patient's schedule active. Patient also has MOW. Mill Labor Supervisor talked at length with nimillie Jaramillo. Jazzy has her own health issues using O2 and 4WW and does not drive. Ella resides in [place] so is some distance away and she does work as well. But in general, they are very caring about patient and intend to keep her at home as long as it is safe and adequate for her needs. Explored SNF options with Ella, she will discuss with her mother Jazzy, but likely would prefer patient stay in her hometown with [facility] if that is needed. PCP is Vianey Nelson. Local SNFs are a secondary option if [facility] does not have beds available. Patient has Medicare and [employer] and there are no financial issues anticipated. Following patient progress, reassess tomorrow for progress and overall status then discuss with Ella a more definitive discharge plan.
--- NOTE | 2018-03-09 13:59 | Physical Therapy Evaluation ---
PT Evaluation-General Medical Diagnosis Admission Date Mar 07, 2018 at 23:02 Medical Diagnosis: Small Bowel Obstruction Onset Date: Mar 07, 2018 Therapy Diagnosis Therapy Diagnosis: Decreased mobility, decreased activity tolerance Height/Weight Height (Feet): 5 Height (Inches): 3.00 Weight (Pounds): 164 Weight (Ounces): 7.0 Precautions Precautions/Isolations: Fall Prevention, Standard Precautions, Pressure Ulcer Weight Bear Status Right Lower Extremity: Right Weight Bearing/Tolerated Left Lower Extremity: Left Weight Bearing/Tolerated Referral Physician: Dr. Butcher Reason for Referral: Evaluation/Treatment Medical History Pertinent Medical History: Arthritis, DM, HTN, Neuropathy Additional Medical History Gonorrhea, Breast CA, Anxiety, NIDDMII Reviewed History: Yes Social History Home: Single Level Current Living Status: Alone Entry Into Home: Ramp Prior/Core FIM Prior Level of Function Therapy Code Descriptions/Definitions Functional [place] Measure: 0=Not Assessed/NA 4=Minimal Assistance 1=Total Assistance 5=Supervision or Setup 2=Maximal Assistance 6=Modified [place] 3=Moderate Assistance 7=Complete [place] Therapy Quality Codes: 6 Independent with activity with or without an assistive device 5 Patient requires set up or clean up by helper. Patient completes activity by themselves 4 Supervision or touching assist (CGA). [place] provide cues , steadying assist 3 The helper provides less than half the effort to complete the activity 2 The helper provides more than half the effort to complete the activity 1 Dependent. The helper does all the effort to complete an activity 7 Patient refused to complete or attempt activity 9 The patient did not perform the activity before the current illness or injury 88 Not attempted due to Medical conditions or safety concerns Functional Abilities and Goals: Independent: Patient completed the activities by him/herself, with or without an assistive device, with no assistance from a helper. Needed Some Help: Patient needed partial assistance from another person to complete activities. Dependent: A helper completed the activities for the patient. Unknown: Not Applicable: Bed Mobility: 6 Transfers (B,C,W/C) (FIM): 6 Gait: 6 Indoor Mobility (Ambulation): Independent Stairs: Not [place] Prior Devices Use: Walker Prior Device Use: FWW PT Evaluation-Current Subjective Pt was in recliner and agreed to PT. Pain Numeric Pain Scale: 0-No Pain Location: No Pain Reported Objective Patient Orientation: Person Attachments: Oxygen (1.5L), IV ROM/Strength ROM Lower Extremities NT Strength Lower Extremities NT Integumentary/Posture Bowel Incontinence: No Bladder Incontinence: No Neuromuscular (Tone, Coordination, Reflexes) NT Sensory Vision: Functional Hearing: Deaf (Has Hearing Aid) Sensation Right Lower Extremit: Impaired Sensation Left Lower Extremity: Impaired Sensation Lower Extremities Neuropathy Transfers Therapy Code Descriptions/Definitions Functional [place] Measure: 0=Not Assessed/NA 4=Minimal Assistance 1=Total Assistance 5=Supervision or Setup 2=Maximal Assistance 6=Modified [place] 3=Moderate Assistance 7=Complete [place] Transfers (B, C, W/C) (FIM): 4 Sit to/from Stand: 4 Gait Mode of Locomotion: Walk Anticipated Mode of Locomotion: Walk Gait (FIM): 2 Distance (FIM): 0=217-18 ft Distance: 60' Gait Level of Assist: 4 Gait Persons Needed: 1 Gait Assistive Device: FWW Comments/Gait Description Pt amb with high step that is very slow. Balance Sitting Static: Good Sitting Dynamic: Good Standing Static: Good Standing Dynamic: Good Assessment/Needs Pt reported she needed to use commode. Pt was able to transfer min A from recliner to FWW. Pt side stepped to commode but required 2 tries to get lined up correctly. Pt follows demonstration cues better than VC due to impaired hearing. Pt required max A with bathroom skills. Pt was able to amb 60' with FWW and 1.5L O2 with CGA. Pt returned to chair in room and has all needs met. Rehab Potential: Fair Post Rehab Potential-Barriers: Safety PT Short Term Goals Short Term Goals Time Frame: Mar 16, 2018 Transfers (B,C,W/C) (FIM): 5 Gait (FIM): 5 Distance (FIM): 5=398-21 ft Gait Distance Comment: 100' Gait Level of Assist: 4 Gait Assistive Device: FWW PT Plan Problem List Problem List: Activity Tolerance, Functional Strength, Safety, Balance, Gait, Transfer, Bed Mobility, ROM Treatment/Plan Treatment Plan: Continue Plan of Care Treatment Plan: Bed Mobility, Education, Functional Activity Lori, Functional Strength, Gait, Safety, Therapeutic Exercise, Transfers Treatment Duration: Mar 16, 2018 Frequency: 6 times per week Estimated Hrs Per Day: .25 hour per day Patient and/or Family Agrees t: Yes Safety Risks/Education Patient Education: Gait Training, Transfer Techniques, Correct Positioning, Safety Issues Teaching Recipient: Patient Teaching Methods: Demonstration, Discussion Discharge Recommendations Therapy D/C Recommendations: Assisted Living, [facility] Placement Equpiment Recommendations-D/C: Front Wheeled Walker Time/GCodes Time In: 1313 Time Out: 1337 Total Billed Treatment Time: 24 Total Billed Treatment 1 visit EVlowC 15 min FA 9 min JONATHAN BOO PT Mar 09, 2018 13:59
--- NOTE | 2018-03-09 15:39 | Occupational Therapy Eval ---
OT Evaluation-General/PLF Medical Diagnosis Admission Date Mar 07, 2018 at 23:02 Medical Diagnosis: Small Bowel Obstruction Onset Date: Mar 07, 2018 Therapy Diagnosis Therapy Diagnosis: Weakness Height/Weight Height (Feet): 5 Height (Inches): 3.00 Weight (Pounds): 164 Weight (Ounces): 7.0 Precautions Precautions/Isolations: Fall Prevention, Standard Precautions, Pressure Ulcer Safety Interventions: Bed Exit Alarm Referral Physician: Dr. Butcher Referral Reason: Activity Tolerance, Self Care, Evaluation/Treatment, Strengthening/ROM Medical History Pertinent Medical History: Arthritis, DM, HTN, Neuropathy Additional Medical History peripheral neuropathy, right breast CA Current History Pt. came to ER with bloating. Reviewed History: Yes Social History Home: Single Level Current Living Status: Alone Entry Into Home: Ramp ADL-Prior Level of Function Therapy Code Descriptions/Definitions Functional [place] Measure: 0=Not Assessed/NA 4=Minimal Assistance 1=Total Assistance 5=Supervision or Setup 2=Maximal Assistance 6=Modified [place] 3=Moderate Assistance 7=Complete [place] Therapy Quality Codes: 6 Independent with activity with or without an assistive device 5 Patient requires set up or clean up by helper. Patient completes activity by themselves 4 Supervision or touching assist (CGA). [place] provide cues , steadying assist 3 The helper provides less than half the effort to complete the activity 2 The helper provides more than half the effort to complete the activity 1 Dependent. The helper does all the effort to complete an activity 7 Patient refused to complete or attempt activity 9 The patient did not perform the activity before the current illness or injury 88 Not attempted due to Medical conditions or safety concerns Functional Abilities and Goals: Independent: Patient completed the activities by him/herself, with or without an assistive device, with no assistance from a helper. Needed Some Help: Patient needed partial assistance from another person to complete activities. Dependent: A helper completed the activities for the patient. Unknown: Not Applicable: ADL PLOF Comments Pt. is able to state that she has assistance in the morning and evenings. They assist her with bathing/dressing, cooking/cleaning. Pt. is poor historian at times and becomes distracted by the pain in her foot. Self Care: Needed Some Help Functional Cognition: Needed Some Help DME/Equipment: Bath Chair, Shower DME/Equipment Comments Pt. has a walker. OT Current Status Subjective Pt. does not report pain level, but yells out in pain and states, "my foot." Pt. indicates that her great toe on left foot hurts and "curls under." Please see note. Appearance Pt. up in chair and calmly eating jello when OT entered room. Mental Status/Objective Patient Orientation: Unable to Assess Attachments: IV ADL-Treatment Therapy Code Descriptions/Definitions Functional [place] Measure: 0=Not Assessed/NA 4=Minimal Assistance 1=Total Assistance 5=Supervision or Setup 2=Maximal Assistance 6=Modified [place] 3=Moderate Assistance 7=Complete [place] Therapy Quality Codes: 6 Independent with activity with or without an assistive device 5 Patient requires set up or clean up by helper. Patient completes activity by themselves 4 Supervision or touching assist (CGA). [place] provide cues , steadying assist 3 The helper provides less than half the effort to complete the activity 2 The helper provides more than half the effort to complete the activity 1 Dependent. The helper does all the effort to complete an activity 7 Patient refused to complete or attempt activity 9 The patient did not perform the activity before the current illness or injury 88 Not attempted due to Medical conditions or safety concerns Eating (FIM): 5 (Set up to eat jello and drink sprite.) Pt. up in chair. Is able to speak with OT although she is not always a great historian. Does become distracted regarding the pain in her left foot. Pt. agrees to let OT doff sock and rub foot with lotion. Noted slight muscle spasm occurring in left foot when pt. would yell. Attempted to break spasm with PROM. Pt. too distracted to participate. OT encourages pt. to ambulate. Pt. states that she doesn't want to. Declines getting back to bed or UE exercises. Once TV is turned back on, pt. is able to calm down. Will work on goals regarding strengthening and mobility, as pt. allows. Education OT Patient Education: Correct positioning, Progress toward Goal/Update tx plan , Purpose of tx/functional activities, Reviewed precautions, Rehab process Teaching Recipient: Patient Teaching Methods: Discussion Response to Teaching: Unable to Return Demonstration OT Short Term Goals Short Term Goals Transfers (B,C,W/C) (FIM): 5 1=Demonstrate adherence to instructed precautions during ADL tasks. 2=Patient will verbalize/demonstrate understanding of assistive devices/ modifications for ADL. 3=Patient will improve strength/tolerance for activity to enable patient to perform ADL's. OT Metal Forger'S Assistant Goals Longterm Goals Time Frame: Mar 16, 2018 Eating (FIM): 5 Grooming(FIM): 5 Upper Body Dressing(FIM): 4 Lower Body Dressing(FIM): 4 Toileting(FIM): 5 Transfers (B,C,W/C) (FIM): 5 Toilet/Commode Transfer(FIM): 5 Additional Goals: 1-Demonstrate ADL Tasks, 2-Verbalize Understanding, 3- ImproveStrength/Lori 1=Demonstrate adherence to instructed precautions during ADL tasks. 2=Patient will verbalize/demonstrate understanding of assistive devices/ modifications for ADL. 3=Patient will improve strength/tolerance for activity to enable patient to perform ADL's. OT Education/Plan Problem List/Assessment Assessment: Decreased Activ Tolerance, Impaired I ADL's, Impaired Self-Care Skills Discharge Recommendations Plan/Recommendations: Continue POC Treatment Plan/Plan of Care Treatment,Training & Education: Yes Patient would benefit from OT for education, treatment and training to promote independence in ADL's, mobility, safety and/or upper extremity function for ADL' s. Plan of Care: ADL Retraining, Functional Mobility, UE Funct Exercise/Act Treatment Duration: Mar 16, 2018 Frequency: 5 times per week Estimated Hrs Per Day: .25 hour per day Agreement: Yes Rehab Potential: Fair Time/GCodes Start Time: 14:25 Stop Time: 14:45 Total Time Billed (hr/min): 20 Billed Treatment Time 1, LAVON ROE OT Mar 09, 2018 15:39
[2018-03-09 15:55] VITALS: BP 127/61
[2018-03-09] MEDS: NS IV 1000 ML 1,000 ML IV SCH ×2 (15:55→20:39)
--- NOTE | 2018-03-09 18:05 | Progress Note (SOAP) ---
Subjective Date Seen by a Provider: Mar 09, 2018 Time Seen by a Provider: 18:00 Subjective/Events-last exam doing well. tlerating clears. still has some abd distention however maybe her normal body habitus. no abd pain. having BM's. Objective Exam Vital Signs Date Time Temp Pulse Resp B/P (MAP) Pulse Ox O2 Delivery O2 Flow Rate FiO2 03/09/18 08:00 98.2 77 20 159/70 (99) 98 Nasal Cannula 3.00 03/09/18 06:56 Nasal Cannula 2.00 03/09/18 04:00 97.8 63 16 125/70 (88) 98 Nasal Cannula 2.00 03/09/18 00:00 98.3 67 18 140/67 (91) 95 Nasal Cannula 2.00 2.00 03/08/18 20:00 Nasal Cannula 2.00 03/08/18 19:47 98.4 82 19 142/71 (94) 94 Nasal Cannula 2.00 I & O 03/09/18 07:00 Intake Total 300 ml Output Total 1175 ml Balance -875 ml Capillary Refill : NONE General Appearance: No Apparent Distress HEENT: PERRL/EOMI Neck: Full Range of Motion Respiratory: Wheezing Cardiovascular: Regular Rate, Rhythm Gastrointestinal: normal bowel sounds, soft, distended Extremity: Normal Capillary Refill Neurologic/Psychiatric: Alert, Oriented x3 Skin: Normal Color Lymphatic: No Adenopathy Results Lab Laboratory Tests 03/09/18 00:08: Glucometer 132H 03/09/18 05:06: Glucometer 152H 03/09/18 07:45: White Blood Count 7.5, Red Blood Count 4.10L, Hemoglobin 13.3, Hematocrit 41, Mean Corpuscular Volume 99, Mean Corpuscular Hemoglobin 32, Mean Corpuscular Hemoglobin Concent 33, Red Cell Distribution Width 13.1, Platelet Count 176, Mean Platelet Volume 9.5, Neutrophils (%) (Auto) 74, Lymphocytes (%) (Auto) 14, Monocytes (%) (Auto) 10, Eosinophils (%) (Auto) 2, Basophils (%) (Auto) 1, Neutrophils # (Auto) 5.5, Lymphocytes # (Auto) 1.1, Monocytes # (Auto) 0.7, Eosinophils # (Auto) 0.2, Basophils # (Auto) 0.0, Sodium Level 137, Potassium Level 4.7, Chloride Level 105, Carbon Dioxide Level 21, Anion Gap 11, Blood Urea Nitrogen 31H, Creatinine 0.86, Estimat Glomerular Filtration Rate > 60, BUN /Creatinine Ratio 36, Glucose Level 154H, Calcium Level 9.5 03/09/18 11:46: Glucometer 233H 03/09/18 16:04: Glucometer 161H Assessment/Plan Assessment/Plan Assess & Plan/Chief Complaint ileus. resolving. now has bowel fxn. will advance to dys3 diet. if tolerating, can be transferred to next destination per surgical perspective. Clinical Quality Measures DVT/VTE Risk/Contraindication: Risk Factor Score Per Nursin RFS Level Per Nursing on Admit: 4+=Very High NEAL ESCALERA MD Mar 09, 2018 18:05
[2018-03-09] MEDS: PRIMIDONE 50 MG TAB (MYSOLINE) PO SCH (20:39)
[2018-03-09] MEDS: ALPRAZolam 0.5 MG (XANAX) TAB PO SCH (20:40)
[2018-03-09] MEDS ORDERED: MONTELUKAST 10 MG (SINGULAIR) TAB PO SCH (21:00)
[2018-03-09] MEDS ORDERED: ASPIRIN E.C. 81 MG (ECOTRIN) TAB PO SCH (21:00)
[2018-03-10 00:56] VITALS: BP 139/64
[2018-03-10] MEDS: inSUlin ASPART (NovoLOG) 1 UNIT/0.01 ML (CHARGE PER UNIT) SC SCH ×2 (06:09→11:22)
[2018-03-10 08:00] VITALS: BP 158/82
[2018-03-10] MEDS: GABAPENTIN 600 MG (NEURONTIN) TAB PO SCH (08:57)
[2018-03-10] MEDS ORDERED: SERTRALINE 50 MG (ZOLOFT) TABLET PO SCH (09:00)
[2018-03-10] MEDS ORDERED: ALLOPURINOL 100 MG (ZYLOPRIM) TAB PO SCH (09:00)
[2018-03-10] MEDS ORDERED: VALSARTAN 80 MG (DIOVAN) TAB PO SCH (09:00)
[2018-03-10] MEDS ORDERED: AZITHROMYCIN 250 MG TAB (ZITHROMAX) PO SCH (09:00)
[2018-03-10] MEDS ORDERED: NON-FORMULARY MEDICATION 1 EA EA (Mirabegron (Myrbetriq) 25 MG) PO SCH (09:00)
[2018-03-10] MEDS: ALPRAZolam 0.5 MG (XANAX) TAB PO SCH (09:02)
[2018-03-10] MEDS: PRIMIDONE 50 MG TAB (MYSOLINE) PO SCH (09:03)
[2018-03-10] MEDS ORDERED: CEPH-507 PO (09:58)
[2018-03-10] MEDS ORDERED: AZIT250T12 PO (09:58)
--- NOTE | 2018-03-10 10:09 | Discharge Inst-Simple/Standard ---
Discharge Inst-Standard Discharge Medications New, Converted or Re-Newed RX: Transmitted to Pharmacy Patient Instructions/Follow Up Plan of Care/Instructions/FU: Please continue to take your medications as written. Please follow up with your PCP in the next 1 week. Activity as Tolerated: Yes Discharge Diet: No Restrictions Return to The Hospital For: Abdominal pain, no bowel movement for >48 hours, if you feel you are getting worse. Planned Outpatient Orders/Ref. Pneu Vac Indicated: Yes KELLY PRINCE MD Mar 10, 2018 10:09
--- NOTE | 2018-03-10 10:14 | NUR ---
SPO2 DID NOT DROP BELOW 89% WITH EXERTION. Addendum: 03/10/18 at 1014 by KAIN ANN RT Amended: Links added.
--- NOTE | 2018-03-10 10:19 | Discharge Summary-Hospitalist ---
Diagnosis/Chief Complaint Date of Admission Mar 07, 2018 at 23:02 Date of Discharge Discharge Date: Mar 10, 2018 Admission Diagnosis Ileus Discharge Diagnosis (1) Ileus Assessment & Plan: NGT DC-ed this AM Surgery consulted, appreciate recs Diet Advanced (2) CAP (community acquired pneumonia) Status: Acute Assessment & Plan: Continue Rocephin and Azithro (3) Non-insulin dependent type 2 diabetes mellitus Assessment & Plan: SSI Accu-checks ACHS (4) Discharge planning issues Assessment & Plan: Lives at home with a rickshaw driver at times May need NH placement at discharge Pediatric Nurse Practitioner consulted, appreciate recs Discharge Summary Procedures/Consulations Dr Leone- Surgery Discharge Physical Exam Allergies: Coded Allergies: No Known Drug Allergies (Unverified , 01/23/17) Vitals & I&Os Vital Signs Date Time Temp Pulse Resp B/P (MAP) Pulse Ox O2 Delivery O2 Flow Rate FiO2 03/10/18 08:00 96.5 62 16 158/82 (107) 96 Room Air 03/10/18 00:56 1.50 General Appearance: No Apparent Distress, Chronically ill Hospital Course Pt was admitted from outside hospital for ileus vs SBO. An NGT was placed and she was kept NPO. Her symptoms resolved quickly and she began passing flatus and multiple BMs. NGT was discontinued and her diet was advanced which she tolerated well. She was evaluated by PT and was able to walk around 100 feet with walker. Pediatric Nurse Practitioner was consulted to assist with discharge planning. She has paid caretakers for over 80 hours per week. She was discharged home to resume this level of care in stable condition. Labs (last 24 hrs) Laboratory Tests 03/09/18 11:46: Glucometer 233H 03/09/18 16:04: Glucometer 161H 03/09/18 20:42: Glucometer 167H 03/10/18 06:09: Glucometer 136H Patient resulted labs reviewed. Pending Labs Laboratory Tests 03/10/18 06:09: Glucometer 136 Imaging: Reviewed Imaging Report Discussion & Recommendations Discharge Planning: >30 minutes discharge planning Discharge Home Medications: Active Scripts Active Keflex (Cephalexin) 500 Mg Capsule 500 Mg PO BID Azithromycin 250 Mg Tablet 250 Mg PO DAILY Reported Fluticasone Propionate 16 Gm [place].susp 1 [place] NS DAILY PRN Tylenol Extra Strength (Acetaminophen) 500 Mg Tablet 500-1,000 Mg PO Q6H PRN Multivitamins (Multivitamin) 1 Each Tablet 1 Tab PO DAILY Montelukast Sodium 10 Mg Tablet 10 Mg PO HS Primidone 50 Mg Tablet 50 Mg PO BID Glipizide 5 Mg Tablet 5 Mg PO BID Aspirin EC (Aspirin) 81 Mg Tablet.dr 81 Mg PO HS Calcium (Calcium Carbonate) 600 Mg Tablet 600 Mg PO DAILY Sertraline HCl 50 Mg Tablet 50 Mg PO DAILY Myrbetriq (Mirabegron) 25 Mg Tab.er.24h 25 Mg PO DAILY Tramadol HCl 50 Mg Tablet 25 Mg PO BID TAKES 1/2 (50MG) TABLET Valsartan 160 Mg Tablet 80 Mg PO DAILY TAKES 1/2 (160MG) TABLET Gabapentin 600 Mg Tablet 600 Mg PO QID Gemfibrozil 600 Mg Tablet 600 Mg PO BID Alprazolam 0.5 Mg Tablet 0.5 Mg PO BID Omeprazole 20 Mg Capsule.dr 20 Mg PO DAILY Allopurinol 100 Mg Tablet 100 Mg PO DAILY Instructions to patient/family Please see electronic discharge instructions given to patient. Clinical Quality Measures DVT/VTE Risk/Contraindication: Risk Factor Score Per Nursin RFS Level Per Nursing on Admit: 4+=Very High Problem Qualifiers (1) CAP (community acquired pneumonia): Laterality: left Lung location: unspecified part of lung Qualified Codes: J18.9 - Pneumonia, unspecified organism KELLY PRINCE MD Mar 10, 2018 10:19
--- NOTE | 2018-03-10 10:55 | Progress Note (SOAP) ---
Subjective Date Seen by a Provider: Mar 10, 2018 Time Seen by a Provider: 09:00 Subjective/Events-last exam doing well. tolerating regular diet and having BM's. no abd pain. Objective Exam Vital Signs Date Time Temp Pulse Resp B/P (MAP) Pulse Ox O2 Delivery O2 Flow Rate FiO2 03/10/18 09:58 96 2.00 03/10/18 08:00 96.5 62 16 158/82 (107) 96 Room Air 03/10/18 07:42 96 Nasal Cannula 2.00 03/10/18 00:56 97.0 64 18 139/64 (89) 98 Nasal Cannula 1.50 03/09/18 20:30 Nasal Cannula 1.50 03/09/18 15:55 97.7 68 20 127/61 (83) 96 Nasal Cannula 1.50 I & O 03/10/18 07:00 Intake Total 3490 ml Output Total 2375 ml Balance 1115 ml Capillary Refill : NONE General Appearance: No Apparent Distress HEENT: PERRL/EOMI Neck: Full Range of Motion Respiratory: Chest Non Tender, Lungs Clear Cardiovascular: Regular Rate, Rhythm Gastrointestinal: normal bowel sounds, non tender, soft Extremity: Normal Capillary Refill Neurologic/Psychiatric: Alert Skin: Normal Color Lymphatic: No Adenopathy Results Lab Laboratory Tests 03/09/18 11:46: Glucometer 233H 03/09/18 16:04: Glucometer 161H 03/09/18 20:42: Glucometer 167H 03/10/18 06:09: Glucometer 136H Assessment/Plan Assessment/Plan Assess & Plan/Chief Complaint ileus. resolving. now has bowel fxn. will advance to dys3 diet. if tolerating, can be transferred to next destination per surgical perspective. Clinical Quality Measures DVT/VTE Risk/Contraindication: Risk Factor Score Per Nursin RFS Level Per Nursing on Admit: 4+=Very High NEAL ESCALERA MD Mar 10, 2018 10:55
[2018-03-10] MEDS: cefTRIAXone FOR IV USE 1,000 MG in NS (IVPB) 50 ML IV SCH (11:22)
--- NOTE | 2018-03-10 13:04 | NUR ---
CM/SS, patient discharged today to return home with her in-home services and supports. Notified [facility] and she will have patient's staff on standby for today to resume her in-home services. Notified morales Iniguez. She coordinated transport through her mother Jazzy who is now sick with pneumonia. A moravian friend of Jazzy will transport patient at an approx scheduled time of 1330. She understands to come to patient room to pickup patient. Friend will update Jazzy when they leave [facility] and Jazzy will alert [facility] to have patient staff at her home timely to assist in getting patient into the house. Unit RN updated. Morales Camara [phone]
[2018-03-10 13:30] VITALS: BP 158/82
--- NOTE | 2018-03-10 13:30 | NUR ---
JOSLYN GARCIA demonstrates understanding of discharge instructions and accurately returns instructions upon questioning. Copy of Post-Discharge Instructions given to PT. JOSLYN GARCIA is able to manage continuing needs after discharge WITH ASSISTANCE OF [facility]AREG[facility]ERS. Patients belongings returned to PT. Patient discharged from 426-1 on 03/10/2018 at 1330. JOSLYN GARCIA left floor via W/C, accompanied by STAFF AND FRIENDS PER AUTO.
== END 2018-03-10 13:30 | disposition home or self-care (01) | DRG 388 ==
LOC: 4TH 23:02
PROVIDERS: ADMIT Internal Medicine; ATTEND Internal Medicine
DX: K56.7 Ileus, unspecified (principal); J18.9 Pneumonia, unspecified organism; E78.00 Pure hypercholesterolemia, unspecified; E11.42 Type 2 diabetes mellitus with diabetic polyneuropathy; I10 Essential (primary) hypertension; H91.93 Unspecified hearing loss, bilateral; Z97.4 Presence of external hearing-aid; Z85.3 Personal history of malignant neoplasm of breast
CPT/HCPCS: 36415; 74018; 80048; 82962; 85025; 94760; 94761

== ENCOUNTER 2018-05-07 19:18 | Emergency (ER) | payer MEDICARE, MEDICAID ==
[~2018-05-07] VITALS: Ht 162.6 cm; Wt 95.3 kg
[~2018-05-07 19:18] MED LIST changes: +ACET-2267 PO; +ASPI-983 PO; +AZIT250T12 PO; +CALC600T12 PO; +CEPH-507 PO; +FLUT16SP22 NS; +GLIP5TAB13 PO; +MIRA25TA PO; +MONT10TA24 PO; +MULT1TAB69 PO; +PRIM50TA PO; +SERT50TA9 PO
--- OUTSIDE RECORDS SUMMARY | 2018-05-07 19:25 | XMS REPORT | Clinical Summary ---
Author Author [facility] Organization [facility] Address Unknown Phone Unavailable Care Team Providers Care Bankruptcy Paralegal Name Role Phone Parvez Rosario MD Unavailable Source Comments Some departments are not documenting in the electronic medical record. If you do not see the information that you expected, contact Release of Information in the Health Information Management department at [phone] for further assistance in locating additional records.[facility] Allergies No Known Allergies Medications End [...]
--- OUTSIDE RECORDS SUMMARY | 2018-05-07 19:28 | XMS REPORT | Continuity of Care Document ---
Author Author [facility] Organization [facility] Address Unknown Phone Unavailable Allergies Active Description Code Type Severity Reaction Onset Reported/Identified Relationship to Patient Clinical Status Yes No Known Drug Allergies [id number] Drug Allergy Unknown N/A 01/23/2017 Medications There [...] 12/02/2015 DANNY PADILLA N Ot Z79.899 OTHER PRISON (CURRENT) DRUG THERAPY 12/02/2015 DANNY PADILLA N [...] 12/08/2015 DANNY PADILLA N Ot Z79.899 OTHER PRISON (CURRENT) DRUG THERAPY 12/08/2015 RANDYDANNY SHUKLA N [...] 12/23/2015 DANNY PADILLA N Ot Z79.899 OTHER PRISON (CURRENT) DRUG THERAPY 12/23/2015 DANNY PADILLA N [...] 12/31/2015 DANNY PADILLA N Ot Z79.899 OTHER HEAD OF IT (CURRENT) DRUG THERAPY 12/31/2015 RANDYDANNY N Ot [...] 12/10/2016 DANNY PADILLA Kodi Ot Z79.899 OTHER HEAD OF IT (CURRENT) DRUG THERAPY 12/10/2016 DANNY PADILLA Kodi [...] 01/23/2017 DANNY PADILLA N Ot Z79.899 OTHER PRISON (CURRENT) DRUG THERAPY 01/23/2017 DANNY PADILLA N [...] 01/23/2017 DANNY PADILLA N Ot Z79.899 OTHER HEAD OF IT (CURRENT) DRUG THERAPY 01/23/2017 DANNY PADILLA N [...] 01/23/2017 DANNY PADILLA N Ot Z79.899 OTHER PRISON (CURRENT) DRUG THERAPY 01/23/2017 DANNY PADILLA N [...] EPISTAXIS 01/24/2017 MARYANN PENG MD Ot Z79.82 PRISON (CURRENT) USE OF ASPIRIN 01/26/2017 MARYANN PENG [...] EPISTAXIS 01/26/2017 MARYANN PENG MD Ot Z79.82 PRISON (CURRENT) USE OF ASPIRIN 02/02/2017 DANNY PADILLA Ot E08.40 DIABETES DUE TO UNDERLYING CONDITION W D 02/02/2017 DANNY PADILLA Ot G62.9 POLYNEUROPATHY, UNSPECIFIED 02/02/2017 DANNY PADILLA Ot Z08 ENCNTR FOR FOLLOW-UP EXAM AFTER TRTMT FO 02/02/2017 DANNY PADILLA Ot Z79.899 OTHER PRISON (CURRENT) DRUG THERAPY 02/02/2017 DANNY PADILLA Ot Z85.3 PERSONAL HISTORY OF MALIGNANT NEOPLASM O 02/02/2017 DANNY PADILLA Ot Z92.3 PERSONAL HISTORY OF IRRADIATION 02/04/2017 RANDY, BOBAN N Ot E08.40 DIABETES DUE TO UNDERLYING CONDITION W D 02/04/2017 DANNY PADILLA N Ot G62.9 POLYNEUROPATHY, UNSPECIFIED 02/04/2017 RANDY REGINALDOKALLI N Ot Z08 ENCNTR FOR FOLLOW-UP EXAM AFTER TRTMT FO 02/04/2017 DANNY PADILLA N Ot Z79.899 OTHER HEAD OF IT (CURRENT) DRUG THERAPY 02/04/2017 RANDY REGINALDOKALLI N Ot Z85.3 PERSONAL HISTORY OF MALIGNANT NEOPLASM O 02/04/2017 RANDY REGINALDOKALLI N Ot Z92.3 PERSONAL HISTORY OF IRRADIATION 02/23/2017 Ruiz CARRILLO, Carlos Gamez R15.9 Fecal incontinence 03/09/2017 RANDY REGINALDOKALLI N Ot E08.40 DIABETES DUE TO UNDERLYING CONDITION W D 03/09/2017 DANNY PADILLA N Ot G62.9 POLYNEUROPATHY, UNSPECIFIED 03/09/2017 RANDY, REGINALDOKALLI N Ot Z08 ENCNTR FOR FOLLOW-UP EXAM AFTER TRTMT FO 03/09/2017 DANNY PADILLA N Ot Z79.899 OTHER PRISON (CURRENT) DRUG THERAPY 03/09/2017 RANDY REGINALDOKALLI N Ot Z85.3 PERSONAL HISTORY OF MALIGNANT NEOPLASM O 03/09/2017 RANDY, REGINALDOKALLI N Ot Z92.3 PERSONAL HISTORY OF IRRADIATION 03/10/2017 RANDY REGINALDOKALLI N Ot E08.40 DIABETES DUE TO UNDERLYING CONDITION W D 03/10/2017 DANNY PADILLA N Ot G62.9 POLYNEUROPATHY, UNSPECIFIED 03/10/2017 RANDY REGINALDOKALLI N Ot Z08 ENCNTR FOR FOLLOW-UP EXAM AFTER TRTMT FO 03/10/2017 RANDY REGINALDOKALLI N Ot Z79.899 OTHER PRISON (CURRENT) DRUG THERAPY 03/10/2017 RANDY REGINALDOKALLI N Ot Z85.3 PERSONAL HISTORY OF MALIGNANT NEOPLASM O 03/10/2017 RANDYDANNY N Ot Z92.3 PERSONAL HISTORY OF IRRADIATION 03/07/2018 RANDYDANNY N Ot 356.9 IDIO PERIPH NEURPTHY NOS 03/07/2018 RANDY, DANNY N Ot 715.89 OSTEOARTHROSIS-MULT SITE 03/07/2018 DANNY PADILLA N Ot V10.3 HX OF BREAST MALIGNANCY 03/07/2018 DANNY PADILLA N Ot V58.66 LONG-TERM (CURRENT) USE OF ASPIRIN 03/07/2018 DANNY PADILLA Kodi Ot V58.69 OTH MED,LT,CURRENT USE 03/07/2018 DANNY PADILLA Kodi Ot V67.1 RADIOTHERAPY FOLLOW-UP 03/07/2018 DANNY PADILLA Kodi Ot 356.9 IDIO PERIPH NEURPTHY NOS 03/07/2018 DANNY PADILLA Kodi Ot 715.89 OSTEOARTHROSIS-MULT SITE 03/07/2018 RANDY DANNY Mariee Ot V10.3 HX OF BREAST MALIGNANCY 03/07/2018 DANNY PADILLA Kodi Ot V58.66 LONG-TERM (CURRENT) USE OF ASPIRIN 03/07/2018 DANNY PADILLA Kodi Ot V58.69 OTH MED,LT,CURRENT USE 03/07/2018 DANNY PADILLA Kodi Ot V67.1 RADIOTHERAPY FOLLOW-UP 03/07/2018 RANDY REGINALDOKALLI Kodi Ot E08.40 DIABETES DUE TO UNDERLYING CONDITION W D 03/07/2018 RANDY REGINALDOKALLI Kodi Ot G62.9 POLYNEUROPATHY, UNSPECIFIED 03/07/2018 RANDY REGINALDOKALLI N Ot Z08 ENCNTR FOR FOLLOW-UP EXAM AFTER TRTMT FO 03/07/2018 DANNY PADILLA N Ot Z79.899 OTHER HEAD OF IT (CURRENT) DRUG THERAPY 03/07/2018 RANDY REGINALDOKALLI N Ot Z85.3 PERSONAL HISTORY OF MALIGNANT NEOPLASM O 03/07/2018 RANDY DANNY N Ot Z92.3 PERSONAL HISTORY OF IRRADIATION 03/07/2018 RANDY DANNY N Ot E08.40 DIABETES DUE TO UNDERLYING CONDITION W D 03/07/2018 RANDY REGINALDOKALLI N Ot G62.9 POLYNEUROPATHY, UNSPECIFIED 03/07/2018 RANDY REGINALDOKALLI N Ot Z08 ENCNTR FOR FOLLOW-UP EXAM AFTER TRTMT FO 03/07/2018 DANNY PADILLA N Ot Z79.899 OTHER HEAD OF IT (CURRENT) DRUG THERAPY 03/07/2018 RANDY REGINALDOKALLI N Ot Z85.3 PERSONAL HISTORY OF MALIGNANT NEOPLASM O 03/07/2018 RANDY DANNY N Ot Z92.3 PERSONAL HISTORY OF IRRADIATION 03/07/2018 RANDYDANNY N Ot E08.40 DIABETES DUE TO UNDERLYING CONDITION W D 03/07/2018 DANNY PADILLA Kodi Ot G62.9 POLYNEUROPATHY, UNSPECIFIED 03/07/2018 DANNY PADILLA Kodi Ot Z08 ENCNTR FOR FOLLOW-UP EXAM AFTER TRTMT FO 03/07/2018 DANNY PADILLA Kodi Ot Z79.899 OTHER PRISON (CURRENT) DRUG THERAPY 03/07/2018 DANNY PADILLA Kodi Ot Z85.3 PERSONAL HISTORY OF MALIGNANT NEOPLASM O 03/07/2018 DANNY PADILLA Kodi Ot Z92.3 PERSONAL HISTORY OF IRRADIATION 03/08/2018 DANNY PADILLA Kodi Ot 356.9 IDIO PERIPH NEURPTHY NOS 03/08/2018 DANNY PADILLA N Ot 715.89 OSTEOARTHROSIS-MULT SITE 03/08/2018 DANNY PADILLA Kodi Ot V10.3 HX OF BREAST MALIGNANCY 03/08/2018 RANDY REGINALDOKALLI N Ot V58.66 LONG-TERM (CURRENT) USE OF ASPIRIN 03/08/2018 RANDY DANNY Mariee Ot V58.69 OTH MED,LT,CURRENT USE 03/08/2018 DANNY PADILLA Kodi Ot V67.1 RADIOTHERAPY FOLLOW-UP 03/08/2018 DANNY PADILLA Kodi Ot 356.9 IDIO PERIPH NEURPTHY NOS 03/08/2018 DANNY PADILLA N Ot 715.89 OSTEOARTHROSIS-MULT SITE 03/08/2018 DANNY PADILLA Kodi Ot V10.3 HX OF BREAST MALIGNANCY 03/08/2018 DANNY PADILLA Kodi Ot V58.66 LONG-TERM (CURRENT) USE OF ASPIRIN 03/08/2018 RANDY REGINALDOKALLI Kodi Ot V58.69 OTH MED,LT,CURRENT USE 03/08/2018 DANNY PADILLA Kodi Ot V67.1 RADIOTHERAPY FOLLOW-UP 03/08/2018 DANNY PADILLA Kodi Ot E08.40 DIABETES DUE TO UNDERLYING CONDITION W D 03/08/2018 RANDY REGINALDOKALLI Kodi Ot G62.9 POLYNEUROPATHY, UNSPECIFIED 03/08/2018 DANNY PADILLA Kodi Ot Z08 ENCNTR FOR FOLLOW-UP EXAM AFTER TRTMT FO 03/08/2018 DANNY PADILLA Kodi Ot Z79.899 OTHER PRISON (CURRENT) DRUG THERAPY 03/08/2018 RANDY DANNY Mariee Ot Z85.3 PERSONAL HISTORY OF MALIGNANT NEOPLASM O 03/08/2018 DANNY PADILLA Ot Z92.3 PERSONAL HISTORY OF IRRADIATION 03/08/2018 DANNY PADILLA Ot E08.40 DIABETES DUE TO UNDERLYING CONDITION W D 03/08/2018 DANNY PADILLA Ot G62.9 POLYNEUROPATHY, UNSPECIFIED 03/08/2018 DANNY PADILLA Ot Z08 ENCNTR FOR FOLLOW-UP EXAM AFTER TRTMT FO 03/08/2018 DANNY PADILLA Ot Z79.899 OTHER HEAD OF IT (CURRENT) DRUG THERAPY 03/08/2018 DANNY PADILLA N Ot Z85.3 PERSONAL HISTORY OF MALIGNANT NEOPLASM O 03/08/2018 DANNY PADILLA N Ot Z92.3 PERSONAL HISTORY OF IRRADIATION 03/08/2018 DANNY PADILLA Ot E08.40 DIABETES DUE TO UNDERLYING CONDITION W D 03/08/2018 DANNY PADILLA Ot G62.9 POLYNEUROPATHY, UNSPECIFIED 03/08/2018 DANNY PADILLA N Ot Z08 ENCNTR FOR FOLLOW-UP EXAM AFTER TRTMT FO 03/08/2018 DANNY PADILLA Ot Z79.899 OTHER PRISON (CURRENT) DRUG THERAPY 03/08/2018 DANNY PADILLA N Ot Z85.3 PERSONAL HISTORY OF MALIGNANT NEOPLASM O 03/08/2018 DANNY PADILLA N Ot Z92.3 PERSONAL HISTORY OF IRRADIATION 03/10/2018 BENJAMÍN BARROW MD Ot E11.42 TYPE 2 DIABETES MELLITUS WITH DIABETIC P 03/10/2018 BENJAMÍN BARROW MD Ot E78.00 PURE HYPERCHOLESTEROLEMIA, UNSPECIFIED 03/10/2018 BENJAMÍN BARROW MD Ot H91.93 UNSPECIFIED HEARING LOSS, BILATERAL 03/10/2018 BENJAMÍN BARROW MD Ot I10 ESSENTIAL (PRIMARY) HYPERTENSION 03/10/2018 BENJAMÍN BARROW MD Ot J18.9 PNEUMONIA, UNSPECIFIED ORGANISM 03/10/2018 BENJAMÍN BARROW MD Ot K56.7 ILEUS, UNSPECIFIED 03/10/2018 BENJAMÍN BARROW MD Ot Z85.3 PERSONAL HISTORY OF MALIGNANT NEOPLASM O 03/10/2018 BENJAMÍN BARROW MD Ot Z97.4 PRESENCE OF EXTERNAL HEARING-AID Procedures There is no data. Results Test [...] plasma albumin measurement (mass/volume) 4.1 g/dL 3.2-4.5 Capillary blood glucose measurement by glucometer (mass/volume) - 03/08/18 00: 46 Capillary blood glucose measurement by glucometer (mass/volume) 171 mg/dL 70-110 Capillary blood glucose measurement by glucometer (mass/volume) - 03/08/18 05: 21 Capillary blood glucose measurement by glucometer (mass/volume) 150 mg/dL 70-110 Complete blood count (CBC) with automated white blood cell (WBC) differential - 03/08/18 07:00 Blood leukocytes automated count (number/volume) 7.7 10*3/uL 4.3-11.0 Blood erythrocytes automated count (number/volume) 3.88 10*6/uL 4.35-5.85 Venous blood hemoglobin measurement (mass/volume) 12.8 g/dL 11.5-16.0 Blood hematocrit (volume fraction) 38 % 35-52 Automated erythrocyte mean corpuscular volume 98 [foz_us] 80-99 Automated erythrocyte mean corpuscular hemoglobin (mass per erythrocyte) 33 pg 25-34 Automated erythrocyte mean corpuscular hemoglobin concentration measurement ( mass/volume) 34 g/dL 32-36 Automated erythrocyte distribution width ratio 13.4 % 10.0-14.5 Automated blood platelet count (count/volume) 185 10*3/uL 130-400 Automated blood platelet mean volume measurement 9.5 [foz_us] 7.4-10.4 Automated blood neutrophils/100 leukocytes 73 % 42-75 Automated blood lymphocytes/100 leukocytes 15 % 12-44 Blood monocytes/100 leukocytes 10 % 0-12 Automated blood eosinophils/100 leukocytes 2 % 0-10 Automated blood basophils/100 leukocytes 1 % 0-10 Blood neutrophils automated count (number/volume) 5.6 10*3 1.8-7.8 Blood lymphocytes automated count (number/volume) 1.1 10*3 1.0-4.0 Blood monocytes automated count (number/volume) 0.8 10*3 0.0-1.0 Automated eosinophil count 0.1 10*3/uL 0.0-0.3 Automated blood basophil count (count/volume) 0.0 10*3/uL 0.0-0.1 Whole blood basic metabolic panel - 03/08/18 07:00 Serum or plasma sodium measurement (moles/volume) 135 mmol/L 135-145 Serum or plasma potassium measurement (moles/volume) 5.8 mmol/L 3.6-5.0 Serum or plasma chloride measurement (moles/volume) 104 mmol/L 98-107 Carbon dioxide 21 mmol/L 21-32 Serum or plasma anion gap determination (moles/volume) 10 mmol/L 5-14 Serum or plasma urea nitrogen measurement (mass/volume) 37 mg/dL 7-18 Serum or plasma creatinine measurement (mass/volume) 0.99 mg/dL 0.60-1.30 Serum or plasma urea nitrogen/creatinine mass ratio 37 NRG Serum or plasma creatinine measurement with calculation of estimated glomerular filtration rate 55 NRG Serum or plasma glucose measurement (mass/volume) 159 mg/dL 70-105 Serum or plasma calcium measurement (mass/volume) 9.4 mg/dL 8.5-10.1 Capillary blood glucose measurement by glucometer (mass/volume) - 03/08/18 11: 17 Capillary blood glucose measurement by glucometer (mass/volume) 161 mg/dL 70-110 Capillary blood glucose measurement by glucometer (mass/volume) - 03/09/18 00: 08 Capillary blood glucose measurement by glucometer (mass/volume) 132 mg/dL 70-110 Capillary blood glucose measurement by glucometer (mass/volume) - 03/09/18 05: 06 Capillary blood glucose measurement by glucometer (mass/volume) 152 mg/dL 70-110 Complete blood count (CBC) with automated white blood cell (WBC) differential - 03/09/18 07:45 Blood leukocytes automated count (number/volume) 7.5 10*3/uL 4.3-11.0 Blood erythrocytes automated count (number/volume) 4.10 10*6/uL 4.35-5.85 Venous blood hemoglobin measurement (mass/volume) 13.3 g/dL 11.5-16.0 Blood hematocrit (volume fraction) 41 % 35-52 Automated erythrocyte mean corpuscular volume 99 [foz_us] 80-99 Automated erythrocyte mean corpuscular hemoglobin (mass per erythrocyte) 32 pg 25-34 Automated erythrocyte mean corpuscular hemoglobin concentration measurement ( mass/volume) 33 g/dL 32-36 Automated erythrocyte distribution width ratio 13.1 % 10.0-14.5 Automated blood platelet count (count/volume) 176 10*3/uL 130-400 Automated blood platelet mean volume measurement 9.5 [foz_us] 7.4-10.4 Automated blood neutrophils/100 leukocytes 74 % 42-75 Automated blood lymphocytes/100 leukocytes 14 % 12-44 Blood monocytes/100 leukocytes 10 % 0-12 Automated blood eosinophils/100 leukocytes 2 % 0-10 Automated blood basophils/100 leukocytes 1 % 0-10 Blood neutrophils automated count (number/volume) 5.5 10*3 1.8-7.8 Blood lymphocytes automated count (number/volume) 1.1 10*3 1.0-4.0 Blood monocytes automated count (number/volume) 0.7 10*3 0.0-1.0 Automated eosinophil count 0.2 10*3/uL 0.0-0.3 Automated blood basophil count (count/volume) 0.0 10*3/uL 0.0-0.1 Whole blood basic metabolic panel - 03/09/18 07:45 Serum or plasma sodium measurement (moles/volume) 137 mmol/L 135-145 Serum or plasma potassium measurement (moles/volume) 4.7 mmol/L 3.6-5.0 Serum or plasma chloride measurement (moles/volume) 105 mmol/L 98-107 Carbon dioxide 21 mmol/L 21-32 Serum or plasma anion gap determination (moles/volume) 11 mmol/L 5-14 Serum or plasma urea nitrogen measurement (mass/volume) 31 mg/dL 7-18 Serum or plasma creatinine measurement (mass/volume) 0.86 mg/dL 0.60-1.30 Serum or plasma urea nitrogen/creatinine mass ratio 36 NRG Serum or plasma creatinine measurement with calculation of estimated glomerular filtration rate > NRG Serum or plasma glucose measurement (mass/volume) 154 mg/dL 70-105 Serum or plasma calcium measurement (mass/volume) 9.5 mg/dL 8.5-10.1 Capillary blood glucose measurement by glucometer (mass/volume) - 03/09/18 11: 46 Capillary blood glucose measurement by glucometer (mass/volume) 233 mg/dL 70-110 Capillary blood glucose measurement by glucometer (mass/volume) - 03/09/18 16: 04 Capillary blood glucose measurement by glucometer (mass/volume) 161 mg/dL 70-110 Capillary blood glucose measurement by glucometer (mass/volume) - 03/09/18 20: 42 Capillary blood glucose measurement by glucometer (mass/volume) 167 mg/dL 70-110 Capillary blood glucose measurement by glucometer (mass/volume) - 03/10/18 06: 09 Capillary blood glucose measurement by glucometer (mass/volume) 136 mg/dL 70-110 Capillary blood glucose measurement by glucometer (mass/volume) - 03/10/18 11: 09 Capillary blood glucose measurement by glucometer (mass/volume) 213 mg/dL 70-110 Encounters ACCT No. Visit Date/Time Discharge Status Pt. Type Provider Facility Loc./Unit Complaint [id number] 08/25/2017 14:55:02 ACT Unknown Ruiz CARRILLO, Carlos Gamez [id number] 04/25/2018 08:30:00 04/25/2018 23:59:59 [facility] Outpatient KEANEERENDIRA Rockwell Sagar [facility] [id number] 03/07/2018 23:02:00 03/10/2018 13:30:00 DIS Inpatient DANIAL CARRILLO, BENJAMÍN Nayak [facility] [address] ILEUS [id number] 03/10/2017 00:13:00 03/10/2017 23:59:59 CLS Preadmit DANNY PADILLA [facility] ONC [id number] 12/09/2016 12:14:00 03/09/2017 00:01:00 DIS Outpatient DANNY PADILLA Kodi [facility] ONC [id number] 01/23/2017 07:06:00 01/24/2017 09:35:00 DIS Outpatient DANISH CARRILLO, MARYANN Spicer [facility] SDC NOSE BLEED [id number] 12/02/2015 10:42:00 12/02/2015 23:59:59 CLS Outpatient DANNY PADILLA K[place] [facility] FS [id number] 11/26/2014 11:00:00 11/26/2014 23:59:59 CLS Outpatient DANNY PADILLA [place] [facility] FS [id number] 11/20/2013 10:16:00 11/20/2013 23:59:59 CLS Outpatient DANNY PADILLA [place] [facility] FS [id number] 11/28/2012 12:59:00 11/28/2012 23:59:59 CLS Outpatient DANNY PADILLA [place] [facility] FS [id number] 11/30/2011 13:04:00 Document Registration [id number] 11/03/2010 12:51:00 Document Registration [id number] 11/04/2009 13:41:00 Document Registration
[2018-05-07 20:26] LABS: HEMATOCRIT 40 % (35-52); HEMOGLOBIN 13.2 G/DL (11.5-16.0); MEAN CORPUSCULAR HEMOGLOBIN 33 PG (25-34); WHITE BLOOD COUNT 9.1 10^3/uL (4.3-11.0)
[2018-05-07 20:27] LABS: BASOPHILS % (AUTO) 1 % (0-10); EOSINOPHILS % (AUTO) 3 % (0-10); LYMPHOCYTES % (AUTO) 11 % (12-44); MEAN CORPUSCULAR HGB CONC 33 G/DL (32-36); MEAN CORPUSCULAR VOLUME 100 FL (80-99); MEAN PLATELET VOLUME 9.6 FL (7.4-10.4); MONOCYTES % (AUTO) 9 % (0-12); NEUTROPHILS # (AUTO) 6.8 X 10^3 (1.8-7.8); NEUTROPHILS % (AUTO) 75 % (42-75); PLATELET COUNT 189 10^3/uL (130-400); RED CELL DISTRIBUTION WIDTH 12.9 % (10.0-14.5)
[2018-05-07 20:28] LABS: BASOPHILS # (AUTO) 0.1 10^3/uL (0.0-0.1); EOSINOPHILS # (AUTO) 0.3 10^3/uL (0.0-0.3); MONOCYTES # (AUTO) 0.8 X 10^3 (0.0-1.0)
--- NOTE | 2018-05-07 20:29 | ED Abdominal Pain ---
General Chief Complaint: Abdominal/GI Problems Stated Complaint: RT SIDE PAIN Nursing Triage Note: Pt arrived by EMS for right side pain. Carol EMT-P stated pt had right side abd pain. He stated he did not see any change in vital signs when patients pain intensified. When pt arrived to ER 6 pt kept hollering in pain and carol stated frequency increased since coming into ER. Pt was asked when pain started and she stated maybe 1700. Pt was asked to rate her pain and she stated right side hurts. Pt could not rate pain. Sepsis Screen: No Definite Risk Source of Information: Patient Exam Limitations: Physical Impairments History of Present Illness Date Seen by Provider: May 07, 2018 Time Seen by Provider: 20:00 Initial Comments 77-year-old female who states she began having right-sided lower abdominal pain today. She states in the area of her "rupture". States she had a normal bowel movement earlier today. No blood in her stool. She's not had any nausea or vomiting. No fever or chills. She apparently has recurrent pain in this area. She is chronically confused making the history somewhat more difficult. Allergies and Home Medications Allergies Coded Allergies: No Known Drug Allergies (Unverified , 01/23/17) Home Medications Acetaminophen 500 Mg Tablet, 500-1,000 MG PO Q6H PRN for PAIN-MILD, (Reported) Allopurinol 100 Mg Tablet, 100 MG PO DAILY, (Reported) Alprazolam 0.5 Mg Tablet, 0.5 MG PO BID, (Reported) Aspirin 81 Mg Tablet.dr, 81 MG PO HS, (Reported) Azithromycin 250 Mg Tablet, 250 MG PO DAILY Prescribed by: KELLY PRINCE on 03/10/18957 Calcium Carbonate 600 Mg Tablet, 600 MG PO DAILY, (Reported) Cephalexin 500 Mg Capsule, 500 MG PO BID Prescribed by: KELLY PRINCE on 03/10/18957 Fluticasone Propionate 16 Gm [place].susp, 1 SPRAY NS DAILY PRN for ALLERGIES, ( Reported) Gabapentin 600 Mg Tablet, 600 MG PO QID, (Reported) Gemfibrozil 600 Mg Tablet, 600 MG PO BID, (Reported) Glipizide 5 Mg Tablet, 5 MG PO BID, (Reported) Mirabegron 25 Mg Tab.er.24h, 25 MG PO DAILY, (Reported) Montelukast Sodium 10 Mg Tablet, 10 MG PO HS, (Reported) Multivitamin 1 Each Tablet, 1 TAB PO DAILY, (Reported) Omeprazole 20 Mg Capsule.dr, 20 MG PO DAILY, (Reported) Primidone 50 Mg Tablet, 50 MG PO BID, (Reported) Sertraline HCl 50 Mg Tablet, 50 MG PO DAILY, (Reported) Tramadol HCl 50 Mg Tablet, 25 MG PO BID, (Reported) TAKES 1/2 (50MG) TABLET Valsartan 160 Mg Tablet, 80 MG PO DAILY, (Reported) TAKES 1/2 (160MG) TABLET Patient Home Medication List Home Medication List Reviewed: Yes Review of Systems Review of Systems Constitutional: no symptoms reported Other Comments Unable to obtain due to patient's underlying mental status. Past Tfefdbp-Svhrom-Cvclpy Hx Past Med/Social Hx: Reviewed Nursing Past Med/Soc Hx Patient Social History Alcohol Use: Denies Use Recreational Drug Use: No Type Used: Cigarettes Recent Foreign Travel: No Contact w/Someone Who Travel: No Recent Infectious Disease Expo: No Recent Hopitalizations: No Physical Abuse: No Sexual Abuse: No Mistreated: No Fear: No Seasonal Allergies Seasonal Allergies: No Past Medical History Surgeries: Yes Abdominal, Bowel Surgery, Breast, Gallbladder Respiratory: Yes Sleep Apnea Cardiac: Yes High Cholesterol, Hypertension Neurological: Yes (GUILLAIN-BARRE) Neuropathy [employer] History: Menopausal Sexually Transmitted Disease: Yes (GONORRHEA) Genitourinary: Yes (INCONTINENCE) Gastrointestinal: Yes Gastrointestinal Bleed Musculoskeletal: Yes (RESTLESS LEGS; GAIT DISTURBANCE) Arthritis Endocrine: Yes Diabetes, Non-Insulin dep HEENT: Yes (NOSEBLEEDS; PERTUSSIS; ) Cataract Hearing Impairment: Deaf, Bilateral Hearing Aide Cancer: Yes Breast Did You Recieve Any Treatments: Yes What Type of Treatment Did You: Chemotherapy, Radiation, Surgical Intervention Psychosocial: Yes Anxiety Integumentary: Yes (CHICKEN POX; STAGE 3 ULCER OF LEFT ANKLE) Blood Disorders: No Physical Exam Vital Signs Vital Signs - First Documented 05/07/18 19:30 Temp 99.1 Pulse 72 Resp 22 B/P (MAP) 164/78 (106) Pulse Ox 94 O2 Delivery Room Air Capillary Refill : Less Than 3 Seconds Height/Weight/BMI Height: 5'4.00" Weight: 210lbs. 0oz. [id number]; 29.1 BMI Method:Estimated General Appearance: WD/WN, mild distress HEENT: PERRL/EOMI, pharynx normal; No scleral icterus (R), No scleral icterus ( L) Neck: non-tender, full range of motion, supple Respiratory: lungs clear, decreased breath sounds Cardiovascular: regular rate, rhythm, no gallop, no murmur Gastrointestinal: soft; No guarding, No rebound; tenderness (right side of abdomen.) Extremities: normal range of motion, non-tender, normal inspection Back: normal inspection, no CVA tenderness Neurologic/Psychiatric: alert, disoriented x 3 (chronic per nursing staff who know her well.) Skin: normal color, warm/dry Lymphatic: no adenopathy Progress/Results/Core Measures Results/Orders Lab Results Laboratory Tests Test 05/07/18 20:11 05/07/18 20:21 05/07/18 22:13 Range/Units White Blood Count 9.1 4.3-11.0 10^3/uL Red Blood Count 3.98 L 4.35-5.85 10^6/uL Hemoglobin 13.2 11.5-16.0 G/DL Hematocrit 40 35-52 % Mean Corpuscular Volume 100 H 80-99 FL Mean Corpuscular Hemoglobin 33 25-34 PG Mean Corpuscular Hemoglobin Concent 33 32-36 G/DL Red Cell Distribution Width 12.9 10.0-14.5 % Platelet Count 189 130-400 10^3/uL Mean Platelet Volume 9.6 7.4-10.4 FL Neutrophils (%) (Auto) 75 42-75 % Lymphocytes (%) (Auto) 11 L 12-44 % Monocytes (%) (Auto) 9 0-12 % Eosinophils (%) (Auto) 3 0-10 % Basophils (%) (Auto) 1 0-10 % Neutrophils # (Auto) 6.8 1.8-7.8 X 10^3 Lymphocytes # (Auto) 1.0 1.0-4.0 X 10^3 Monocytes # (Auto) 0.8 0.0-1.0 X 10^3 Eosinophils # (Auto) 0.3 0.0-0.3 10^3/uL Basophils # (Auto) 0.1 0.0-0.1 10^3/uL Sodium Level 136 135-145 MMOL/L Potassium Level 6.6 *H 6.3 H 3.6-5.0 MMOL/L Chloride Level 99 98-107 MMOL/L Carbon Dioxide Level 25 21-32 MMOL/L Anion Gap 12 5-14 MMOL/L Blood Urea Nitrogen 35 H 7-18 MG/DL Creatinine 0.85 0.60-1.30 MG/DL Estimat Glomerular Filtration Rate > 60 BUN/Creatinine Ratio 41 Glucose Level 145 H 70-105 MG/DL Calcium Level 10.3 H 8.5-10.1 MG/DL Corrected Calcium 8.5-10.1 MG/DL Total Bilirubin 0.2 0.1-1.0 MG/DL Aspartate Amino Transf (AST/SGOT) 22 5-34 U/L Alanine Aminotransferase (ALT/SGPT) 22 0-55 U/L Alkaline Phosphatase 71 40-136 U/L Total Protein 8.1 6.4-8.2 GM/DL Albumin 4.9 H 3.2-4.5 GM/DL Lipase 33 8-78 U/L Urine Color ROXANNA H Urine Clarity CLOUDY Urine pH 6.0 5-9 Urine Specific [place] 1.015 L 1.016-1.022 Urine Protein 2+ H NEGATIVE Urine Glucose (UA) NEGATIVE NEGATIVE Urine Ketones NEGATIVE NEGATIVE Urine Nitrite POSITIVE H NEGATIVE Urine Bilirubin NEGATIVE NEGATIVE Urine Urobilinogen 0.2 NORMAL MG/DL Urine Leukocyte Esterase 1+ H NEGATIVE Urine RBC (Auto) 3+ H NEGATIVE Urine RBC >100 H /HPF Urine WBC 5-10 H /HPF Urine Squamous Epithelial Cells 0-2 /HPF Urine Crystals NONE /LPF Urine Bacteria MODERATE H /HPF Urine Casts NONE /LPF Urine Mucus NONE /LPF Urine Culture Indicated YES My Orders Orders - RON LOPEZ MD Comprehensive Metabolic Panel (05/07/18 19:49) Lipase (05/07/18 19:49) Ua Culture If Indicated (05/07/18 19:49) Saline Lock/Iv-Start (05/07/18 19:49) Acute Abd Series (05/07/18 19:49) Cbc With Automated Diff (05/07/18 19:49) Urine Culture (05/07/18 20:21) Potassium (05/07/18 20:58) Ct Abdomen/Pelvis Wo (05/07/18 21:01) Ekg Tracing (05/07/18 21:03) Tramadol Tablet (Ultram Tablet) (05/07/18 21:59) Vital Signs/I&O 05/07/18 19:30 Temp 99.1 Pulse 72 Resp 22 B/P (MAP) 164/78 (106) Pulse Ox 94 O2 Delivery Room Air Blood Pressure Mean: 106 Progress Progress Note : Time: 21:02 Progress Note Potassium elevated in light of normal creatinine. We'll repeat potassium to rule out hemolysis. We'll obtain a CT of her abdomen due to persistent voicing of pain. Every did also review did not reveal any problem other than constipation however with her diminished communication skills is possible that an underlying pathology could be present. Obtain EKG. 2237 CT scan of the abdomen was unremarkable other than constipation and incidental finding of a breast mass. Apparently, this is been worked up according to the patient. Still, very important that she follow up with her PCP. Urinary tract infection was also noted. We will give a dose tonight and have them fill her prescription tomorrow. We also discussed the importance of following up the potassium with PCP in one to 2 days. Initial ECG Impression Date: May 07, 2018 Initial ECG Impression Time: 21:26 Initial ECG Rhythm: Normal Sinus Initial ECG Intervals: Normal Comment LAD, no acute changes Diagnostic Imaging Diagonstic Imaging: Xray, CT Plain Films/CT/US/NM/MRI: abdomen Comments AAS: No acute changes except constipation changes. Per radiologist. CT abdomen: constipation changes. 3 cm breast mass-followup recommended. Per radiologist. Departure Impression Primary Impression: Urinary tract infection Qualified Codes: N30.01 - Acute cystitis with hematuria Additional Impressions: Pain in the abdomen Qualified Codes: R10.31 - Right lower quadrant pain Constipation Qualified Codes: K59.01 - Slow transit constipation Breast mass in female Diabetes Qualified Codes: E11.9 - Type 2 diabetes mellitus without complications Disposition: HOME, SELF-CARE Condition: Improved Departure-Patient Inst. Decision time for Depature: 22:41 Referrals: ERENDIRA KEANE MD (PCP/Family) Primary Care Physician 2 days Patient Instructions: Urinary Tract Infection, Adult (DC), Acute Abdomen ( Belly Pain) Add. Discharge Instructions: It is very important to have lab results checked tomorrow. Is also. Important to follow-up on culture which may take a couple of days. Be sure to have a breast mass found on CT and hematuria on urinary testing rechecked as well. All discharge instructions reviewed with patient and/or family. Voiced understanding. Scripts Nitrofurantoin Monohyd/M-Cryst (Macrobid 100 mg Capsule) 100 Mg Capsule 1 TAB PO BID, #14 CAP Prov: RON LOPEZ MD 05/07/18 RON LOPEZ MD May 07, 2018 20:29
[2018-05-07 20:38] LABS: CLARITY,URINE CLOUDY; COLOR,URINE AMBER; PROTEIN,URINE 2+ (NEGATIVE)
[2018-05-07 20:39] LABS: BACTERIA,URINE MODERATE /HPF; BILIRUBIN,URINE NEGATIVE (NEGATIVE); GLUCOSE, URINE (UA) NEGATIVE (NEGATIVE); KETONES,URINE NEGATIVE (NEGATIVE); LEUKOCYTE ESTERASE ,URINE 1+ (NEGATIVE); NITRITE,URINE POSITIVE (NEGATIVE); RBC,URINE >100 /HPF; SQUAMOUS EPITHELIAL CELL,UR 0-2 /HPF; UROBILINOGEN,URINE 0.2 MG/DL (NORMAL)
[2018-05-07 20:44] LABS: SODIUM 136 MMOL/L (135-145)
[2018-05-07 20:45] LABS: ALKALINE PHOSPHATASE 71 U/L (40-136); BILIRUBIN,TOTAL 0.2 MG/DL (0.1-1.0); BUN/CREATININE RATIO 41; CALCIUM 10.3 MG/DL (8.5-10.1); CARBON DIOXIDE 25 MMOL/L (21-32); CHLORIDE 99 MMOL/L (98-107); CREATININE SERUM 0.85 MG/DL (0.60-1.30); GFR ESTIMATED > 60; GLUCOSE 145 MG/DL (70-105); POTASSIUM 6.6 MMOL/L (3.6-5.0)
[2018-05-07 20:46] LABS: ALANINE AMINOTRANSFERASE 22 U/L (0-55); ALBUMIN 4.9 GM/DL (3.2-4.5); LIPASE 33 U/L (8-78); TOTAL PROTEIN 8.1 GM/DL (6.4-8.2)
--- NOTE | 2018-05-07 20:57 | Diagnostic Imaging Report ---
INDICATION: Right-sided abdominal pain. Bloating. EXAMINATION: Acute abdomen series. FINDINGS: Upright chest show cardiomegaly but no failure. The lungs are clear. Supine and upright views of the abdomen show retained fecal material scattered throughout a nondilated colon. No acute bowel abnormality is seen. There is no free intraperitoneal air. There is no mass. There is no acute bony abnormality. IMPRESSION: Cardiomegaly. Mild constipation. Dictated by: Dictated on workstation # [id number]
--- NOTE | 2018-05-07 21:53 | Diagnostic Imaging Report ---
PROCEDURE: CT abdomen and pelvis without contrast. TECHNIQUE: Multiple contiguous axial images were obtained through the abdomen and pelvis without the use of intravenous contrast. Auto Exposure Controls were utilized during the CT exam to meet ALARA standards for radiation dose reduction. INDICATION: Right-sided abdominal pain. FINDINGS: There is a 3 cm masslike density seen in the right breast. This appears to have increased in size since the 03/07/2018 study at which time it measured 2.7 cm in greatest dimension. Breast cancer needs to be excluded. The lung bases are clear. The gallbladder is absent. There is mild hepatomegaly with no liver lesions seen. There are granulomatous calcifications in the spleen. Pancreas and adrenals are normal. 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 The left kidney shows compensatory hypertrophy and is normal in appearance. The bladder is normal. There is constipation with no acute bowel abnormality seen. There is no free intraperitoneal air or fluid. There is no acute bony abnormality. IMPRESSION: There is a right breast mass that needs further evaluation, if not already performed. There is hepatomegaly. Dictated by: Dictated on workstation # [id number]
[2018-05-07] MEDS ORDERED: NITR-65 PO (22:43)
[2018-05-07] MEDS ORDERED: NITROFURANTOIN 100 MG (MACROBID) CAPSULE PO ONE ×2 (22:45→22:53)
[2018-05-07 23:20] VITALS: BP 166/71
== END 2018-05-07 23:20 | disposition home or self-care (01) ==
LOC: EDUNIT# 19:18 → ER FS 19:21
DX: N39.0 Urinary tract infection, site not specified (principal); K59.00 Constipation, unspecified; E11.40 Type 2 diabetes mellitus with diabetic neuropathy, unspecified; N63.10 Unspecified lump in the right breast, unspecified quadrant; G47.30 Sleep apnea, unspecified; E78.00 Pure hypercholesterolemia, unspecified; I10 Essential (primary) hypertension; G61.0 Guillain-Barre syndrome; G25.81 Restless legs syndrome; F41.9 Anxiety disorder, unspecified; Z92.21 Personal history of antineoplastic chemotherapy; Z85.3 Personal history of malignant neoplasm of breast; Z87.19 Personal history of other diseases of the digestive system; Z79.82 Long term (current) use of aspirin; Z79.51 Long term (current) use of inhaled steroids; Z79.4 Long term (current) use of insulin; Z98.890 Other specified postprocedural states
CPT/HCPCS: 36415; 74022; 74176; 80053; 81000; 83690; 84132; 85025; 87077; 87088; 87186; 93005

== ENCOUNTER → 2018-05-12 | Outpatient (CLI) | payer MEDICARE, MEDICAID ==
[~2018-05-12] MED LIST changes: +NITR-65 PO
[2018-05-12 14:47] LABS: POTASSIUM 5.2 MMOL/L (3.6-5.0)
[2018-05-12 14:48] LABS: CALCIUM 9.8 MG/DL (8.5-10.1); CREATININE SERUM 0.97 MG/DL (0.60-1.30)
== END ==
LOC: LAB FS 13:33
PROVIDERS: ATTEND Family Medicine
DX: E87.5 Hyperkalemia (principal)
CPT/HCPCS: 36415; 80048

== ENCOUNTER 2018-06-11 08:48 | Inpatient (IN) | payer MEDICARE, MEDICAID ==
[~2018-06-11] VITALS: Ht 160 cm; Wt 70.4 kg
--- OUTSIDE RECORDS SUMMARY | 2018-06-11 08:56 | XMS REPORT | Encounter Summary ---
Author Author [facility] Organization [facility] Address Unknown Phone Unavailable Care Team Providers Care Plaster Lather Name Role Phone Parvez Rosario MD Unavailable No Pcp, Na PCP Unavailable Reason for Visit * Reason Comments Appointment Question Encounter Details Care Team Description Date Type Department No Pcp, Na Appointment Question 05/29/2018 [address] [place] [address] Social History Date Tobacco Use Types Packs/Day Years Used Never Smoker Smokeless Tobacco: Never Used Alcohol Use Drinks/Week oz/Week Comments No 0 Standard 0.0 drinks or equivalent Sex Assigned at Date Recorded Not on file Industry Job Start Date Occupation Not on file Not on file Not on file Travel End Travel History Travel Start No recent travel history available. documented as of this encounter Miscellaneous Notes * Telephone Encounter - Bridget De Paz RN - 05/29/2018 2:04 PM CDT Phone call to Ella Jaramillo states pt has a PCP, unsure if she has to f/u with [facility], advised to keep pt with her PCP. Reviewed home care instructions with Ella from ED. No further needs. * Telephone Encounter - Radha Elliott - 05/29/2018 12:49 PM CDT Ella requesting a call back in regards to an ED f/u and how to care for callulitis. [facility] [id number] *Pt. has not established care with [facility] yet. * Telephone Encounter - Radha Elliott - 05/29/2018 9:52 AM CDT Jazzy wallace pt. was seen in the ED on Tuesday and they informed her to schedule an appointment with [facility]. pt. has a provider in [place] and was wondering if that is okay to do instead. LVM [id number] documented in this encounter Plan of Treatment Not on filedocumented as of this encounter Visit Diagnoses Not on filedocumented in this encounter
--- OUTSIDE RECORDS SUMMARY | 2018-06-11 08:56 | XMS REPORT | Encounter Summary ---
Author Author [facility] Organization [facility] Address Unknown Phone Unavailable Care Team Providers Care Automatic Silk Screen Printer Name Role Phone Parvez Rosario MD Unavailable No Pcp, Na PCP Unavailable Reason for Visit * Reason Comments Wound Check Diabetic wound to L foot Encounter Details Care Team Description Date Type Department Evangelist Rdz DO [address] [facility] [place] [address] 05/26/2018 Emergency [facility] [address] [place] [address] Social History Date Tobacco Use Types Packs/Day [...] history available. documented as of this encounter Last Filed Vital Signs Time Taken Vital Sign Reading 05/26/2018 9:00 PM CDT Blood Pressure 147/74 - Pulse - 05/26/2018 2:57 PM CDT Temperature 36.8 C (98.3 F) - Respiratory Rate - 05/26/2018 9:00 PM CDT Oxygen Saturation 93% - Inhaled Oxygen - Concentration 05/26/2018 2:57 PM CDT Weight 69.9 kg (154 lb) 05/26/2018 2:57 PM CDT Height 149.9 cm (4' 11") 05/26/2018 2:57 PM CDT Body Mass Index 31.1 documented in this encounter Discharge Instructions * Instructions* Luke Cole MD - 05/26/2018 You were seen in the ER for a foot wound. We obtained labs and imaging. We have prescribed an antibiotic. Please take as prescribed. Please follow-up with a specialist regarding removal. Please return to the ER if any of your symptoms acutely worsen. * Attachments The following attachments cannot be sent through Care Everywhere.* Skin Infection, Cellulitis (CHINESE) documented in this encounter Medications at Time of Discharge Start Date End Date Medication Sig Dispensed Refills allopurinol (ZYLOPRIM) Take 100 mg 0 100 mg tablet by mouth daily. ALPRAZolam (XANAX) 0.5 mg Take 0.5 mg 0 tablet by mouth at bedtime as needed. 05/26/2018 amoxicillin/K clavulanate Take one 20 tablet 0 (AUGMENTIN) 875/125 mg tablet by tablet mouth every 12 hours. Take with food. aspirin EC 81 mg tablet Take 81 mg by 0 mouth daily. CALCIUM PO Take by 0 mouth. cephalexin (KEFLEX) 500 Take 500 mg 0 mg capsule by mouth four times daily. cholecalciferol (VITAMIN Take 1,000 0 D-3) 1,000 units tablet Units by mouth daily. MULTIVITAMIN WITH Take by 0 MINERALS (ONE-A-DAY 50 mouth. PLUS PO) NAPROXEN SODIUM (ALEVE Take by 0 PO) mouth. omeprazole DR(+) Take 20 mg by 0 (PRILOSEC) 20 mg capsule mouth daily. tolterodine LA(+) (DETROL Take 4 mg by 0 LA) 4 mg capsule mouth daily. valsartan (DIOVAN) 160 mg Take 160 mg 0 tablet by mouth daily. documented as of this encounter ED Notes * Love Cardona, MALENA - 05/26/2018 9:32 PM CDT Pt verbalizes discharge instructions. PIV removed. Prescriptions given. No further questions. VSS. AA&Ox4. Ambulated without assistance. * Payton Lester RN - 05/26/2018 7:27 PM CDT Pt family states pt c/o painful urination, recently on abx for UTI. Per family, pt has been stating she has to urinate for two hours but has been unable to, family concerned for UTI. Dr. Cole and primary RN notified. Orders for straight cath and urine dip obtained. * Love Cardona RN - 05/26/2018 4:40 PM CDT I have reviewed the notes, assessment, and/or procedures performed by Kim Cavanaugh and concur with her/his documentation unless otherwise noted. * Kim Cavanaugh - 05/26/2018 4:38 PM CDT Pt is a 77 y.o. female who presents to ED with CC of non-healing left foot wound that has worsened this week. Pt has a hx of diabetes, cancer, and eye trauma. Per Pt's family, she lives alone and home health visits her everyday and stays overnight and under-reported the severity of wound, they report that it was cleaned and covered w/ Vaseline. Wound is 2 years old, Pt consulted an orthopedic surgeon last year but they were unable to perform surgery d/t poor vascular status of leg. Dr. Bueno present for evaluation. Pt is hard of hearing and is a poor historian of care. Pt. is A/Ox4. VSS. NAD. Bed in locked and lowest position. Call light in reach. Nieces at bedside. * Evangelist Rdz DO - 05/26/2018 4:07 PM CDT Renae Iniguez is a 77 y.o. female. Chief Complaint: Chief Complaint Patient presents with Wound Check Diabetic wound to L foot History of Present Illness: 77-year-old female with a past medical history of diabetes that presents with a left foot wound. Patient's family members state that it is been present for a long time and she has been receiving wound care. They noticed last night that it appeared dark in color and she had some redness around it. They report overnight that it acutely worsened. They deny that she has had any fevers or chills. They deny any new trauma that they are aware of. She does note some localized tenderness. Review of Systems: Review of Systems Constitutional: Negative for activity change, appetite change and fever. HENT: Negative for congestion, drooling, rhinorrhea and tinnitus. Respiratory: Negative for cough, chest tightness and shortness of breath. Cardiovascular: Negative for chest pain, palpitations and leg swelling. Gastrointestinal: Negative for abdominal pain, constipation, diarrhea, nausea and vomiting. Genitourinary: Negative for dysuria, frequency and urgency. Musculoskeletal: Positive for arthralgias. Foot pain Skin: Negative for rash. Neurological: Negative for dizziness, syncope, light-headedness, numbness and headaches. Hematological: Negative for adenopathy. All other systems reviewed and are negative. Allergies: Patient has no known allergies. Past Medical History: Past Medical History: Diagnosis Date Cancer (HCC) 2004 S/P Radiation Eye trauma OS ? age 42ish Past Surgical History: Past Surgical History: Procedure Laterality Date COLON SURGERY EAR SURGERY HX CATARACT REMOVAL OU HYSTERECTOMY TOE SURGERY Pertinent medical/surgical history reviewed Social History: Social History Tobacco Use Smoking status: Never Smoker Smokeless tobacco: Never Used Substance Use Topics Alcohol use: No Alcohol/week: 0.0 oz Drug use: Not on file Social History Substance and Sexual Activity Drug Use Not on file Family History: Family History Problem Relation Age of Onset Diabetes Mother Coronary Artery Disease Father Diabetes Father Stroke Neg Hx Thyroid Disease Neg Hx Macular Degen Neg Hx Blindness Neg Hx Cancer Neg Hx Cataract Neg Hx Glaucoma Neg Hx Hypertension Neg Hx Neurologic Disorder Neg Hx Retinal Detachment Neg Hx Strabismus Neg Hx Amblyopia Neg Hx Vitals: ED Vitals Date and Time T BP P RR SPO2P SPO2 User 05/26/18 2100 -- 147/74 -- -- 72 93 % 05/26/18 2030 -- 159/68 -- -- 67 94 % 05/26/18 2000 -- 180/65 -- -- 70 95 % 05/26/18 1930 -- 136/61 -- -- 71 94 % 05/26/18 1900 -- 148/64 -- -- 70 94 % 05/26/18 1830 -- 150/78 -- -- 71 97 % 05/26/18 1700 -- 165/78 -- -- 74 94 % 05/26/18 1630 -- 173/86 -- -- 64 96 % 05/26/18 1600 -- 166/77 -- -- 70 95 % MK 05/26/18 1457 36.8 C (98.3 F) 158/61 -- 14 PER MINUTE 66 100 % MM Physical Exam: Physical Exam Constitutional: She is oriented to person, place, and time. She appears well- developed and well-nourished. No distress. HENT: Head: Normocephalic and atraumatic. Mouth/Throat: Oropharynx is clear and moist. Eyes: Pupils are equal, round, and reactive to light. Conjunctivae and EOM are normal. Neck: Neck supple. Cardiovascular: Normal rate, regular rhythm, normal heart sounds and intact distal pulses. Pulmonary/Chest: Effort normal and breath sounds normal. No respiratory distress. She has no wheezes. She has no rales. Abdominal: Soft. Bowel sounds are normal. She exhibits no distension. There is no tenderness. Musculoskeletal: Normal range of motion. She exhibits edema (1+ pitting edema in the left lower extremity which is greater than the right.) and tenderness ( Tenderness over her left lateral foot wound. Large growth over the left lateral aspect of her foot.). Neurological: She is alert and oriented to person, place, and time. Skin: Skin is warm and dry. Capillary refill takes less than 2 seconds. No erythema. Nursing note and vitals reviewed. Laboratory Results: Labs Reviewed CBC AND DIFF - Abnormal Result Value Ref Range Status White Blood Cells 6.8 4.5 - 11.0 K/UL Final RBC 4.10 4.0 - 5.0 M/UL Final Hemoglobin 13.6 12.0 - 15.0 GM/DL Final Hematocrit 40.5 36 - 45 % Final MCV 98.9 80 - 100 FL Final MCH 33.2 26 - 34 PG Final MCHC 33.5 32.0 - 36.0 G/DL Final RDW 13.3 11 - 15 % Final Platelet Count 326 150 - 400 K/UL Final MPV 7.1 7 - 11 FL Final Neutrophils 71 41 - 77 % Final Lymphocytes 17 (*) 24 - 44 % Final Monocytes 8 4 - 12 % Final Eosinophils 3 0 - 5 % Final Basophils 1 0 - 2 % Final Absolute Neutrophil Count 4.90 1.8 - 7.0 K/UL Final Absolute Lymph Count 1.10 1.0 - 4.8 K/UL Final Absolute Monocyte Count 0.50 0 - 0.80 K/UL Final Absolute Eosinophil Count 0.20 0 - 0.45 K/UL Final Absolute Basophil Count 0.00 0 - 0.20 K/UL Final C REACTIVE PROTEIN (CRP) - Abnormal C-Reactive Protein 2.28 (*) <1.0 MG/DL Final SED RATE - Abnormal Sed Rate -ESR 83 (*) 0 - 30 MM/HR Final COMPREHENSIVE METABOLIC PANEL - Abnormal Sodium 136 (*) 137 - 147 MMOL/L Final Potassium 5.4 (*) 3.5 - 5.1 MMOL/L Final Chloride 102 98 - 110 MMOL/L Final Glucose 97 70 - 100 MG/DL Final Blood Urea Nitrogen 38 (*) 7 - 25 MG/DL Final Creatinine 1.09 (*) 0.4 - 1.00 MG/DL Final Calcium 10.4 8.5 - 10.6 MG/DL Final Total Protein 8.4 (*) 6.0 - 8.0 G/DL Final Total Bilirubin 0.2 (*) 0.3 - 1.2 MG/DL Final Albumin 4.8 3.5 - 5.0 G/DL Final Alk Phosphatase 77 25 - 110 U/L Final AST (SGOT) 22 7 - 40 U/L Final CO2 23 21 - 30 MMOL/L Final ALT (SGPT) 14 7 - 56 U/L Final Anion Gap 11 3 - 12 Final eGFR Non 49 (*) >60 mL/min Final eGFR 59 (*) >60 mL/min Final URINALYSIS DIPSTICK POC - Abnormal Urine Color POC YELLOW Final Urine Turbidity POC CLEAR CLEAR-CLEAR Final Urine Specific Cu[place] POC 1.010 1.003 - 1.035 Final Urine PH POC 5.5 5.0 - 8.0 Final Urine Protein POC 1+ (*) NEG-NEG Final Urine Glucose POC NEG NEG-NEG Final Urine Ketone POC NEG NEG-NEG Final Urine Bilirubin POC NEG NEG-NEG Final Urine Blood POC TRACE (*) NEG-NEG Final Urine Urobilinogen POC NORMAL NORM-NORMAL Final Urine Nitrite POC NEG NEG-NEG Final Urine Leukocytes POC TRACE (*) NEG-NEG Final Radiology Interpretation: US DOPPLER VENOUS W EXTRM LEFT Final Result Mild subcutaneous edema within the left ankle and calf without evidence of acute femoral/popliteal DVT in the left lower extremity. By my electronic signature, I attest that I have personally reviewed the images for this examination and formulated the interpretations and opinions expressed in this report Finalized by Genaro Treviño M.D. on 05/26/2018 5:54 PM. Dictated by Janelle Orozco M.D. on 05/26/2018 5:48 PM. FOOT COMP MIN 3 VIEWS LEFT (Results Pending) EKG: Sinus rhythm, rate 70, VT 164, QRS 80, QTc 398, no STEMI. ED Course: Patient was evaluated by resident and attending for left foot wound. It did not appear overtly infected but labs were obtained. A ESR and CRP was elevated. X-ray without bony erosions. Ultrasound without DVT. Patient was placed on Augmentin and was advised to follow-up with her primary surgeon. Patient verbalized understanding and was discharged home. ED Scoring: MDM Reviewed: previous chart, nursing note and vitals Reviewed previous: labs, ECG and x-ray Interpretation: labs, ECG, x-ray and ultrasound Facility Administered Meds: Medications gabapentin (NEURONTIN) capsule 600 mg (600 mg Oral Given 05/26/182110) traMADol (ULTRAM) tablet 50 mg (50 mg Oral Given 05/26/182110) Clinical Impression: Clinical Impression Wound cellulitis Disposition/Follow up ED Disposition ED Disposition [facility]charge [facility] [address] [id number]n [facility] [phone] Schedule an appointment as soon as possible for a visit in 1 week Medications: Discharge Medication List as of 05/26/2018 7:02 PM Procedure Notes: Procedures Attestation / Supervision: Luke Cole MD ATTESTATION I personally observed the resident performing the E/M, discussed case with resident, and concur with resident documentation of history, physical assessment and treatment plan unless otherwise noted. Staff name: Evangelist Rdz DO Date: 05/27/2018 documented in this encounter Plan of Treatment Not on filedocumented as of this encounter Procedures Comments Procedure Name Priority Date/Time Associated Diagnosis URINALYSIS DIPSTICK POC 05/26/2018 8:00 PM CDT US DOPPLER VENOUS W EXTRM STAT 05/26/2018 LEFT 5:50 PM CDT FOOT COMP MIN 3 VIEWS STAT 05/26/2018 LEFT 5:15 PM CDT ECG 12-LEAD STAT 05/26/2018 5:09 PM CDT SED RATE STAT 05/26/2018 4:04 PM CDT CBC AND DIFF STAT 05/26/2018 4:04 PM CDT C REACTIVE PROTEIN (CRP) STAT 05/26/2018 4:04 PM CDT COMPREHENSIVE METABOLIC STAT 05/26/2018 PANEL 4:04 PM CDT ECG-SCAN 05/26/2018 12:00 AM CDT ECG-SCAN 05/26/2018 12:00 AM CDT ECG-SCAN 05/26/2018 12:00 AM CDT documented in this encounter Results * URINALYSIS DIPSTICK POC (05/26/2018 8:00 PM CDT) Urine Color POC YELLOW [facility] Urine Turbidity CLEAR CLEAR-CLEAR [facility] POC Urine Specific 1.010 1.003 - 1.035 [facility] Cu[place] POC Urine PH POC 5.5 5.0 - 8.0 [facility] Urine Protein 1+ (A) NEG-NEG [facility] POC Urine Glucose NEG NEG-NEG [facility] POC Urine Ketone NEG NEG-NEG [facility] POC Urine Bilirubin NEG NEG-NEG [facility] POC Urine Blood POC TRACE (A) NEG-NEG [facility] Urine NORMAL NORM-NORMAL [facility] Urobilinogen POC Urine Nitrite NEG NEG-NEG [facility] POC Urine TRACE (A) NEG-NEG [facility] Leukocytes POC Performing Organization Address City/State/Zipcode Phone Number [facility] [address] [place] [address] * US DOPPLER VENOUS W EXTRM LEFT (05/26/2018 5:50 PM CDT) Impressions Performed At Mild subcutaneous edema within the left ankle and calf without evidence of acute [facility] femoral/popliteal DVT in the left lower extremity. By my electronic signature, I attest that I have personally reviewed the images for this examination and formulated the interpretations and opinions expressed in this report Finalized by Genaro Treviño M.D. on 05/26/2018 5:54 PM. Dictated by Janelle Orozco M.D. on 05/26/2018 5:48 PM. Narrative Performed At Left lower extremity venous Doppler [facility] Clinical Indication: 77-year-old female, left lower extremity edema Technique: Multiple real-time grayscale sonographic images were obtained throughout left lower extremity with additional color Doppler and duplex acquisitions to examine the deep venous systems. Comparison: None Findings: There are no areas of narrowing or occlusion within the deep veins of the left lower extremity. The common femoral, upper deep femoral, femoral, popliteal, and upper greater saphenous are widely patent and fully compressible. The visualized calf veins are patent. Color and duplex appearance are normal. Mild subcutaneous edema within the left calf and ankle. No evidence of mass or fluid collection within the left lower extremity. Procedure Note Interface, Radiant Results - 05/26/2018 5:57 PM CDT Left lower extremity venous Doppler Clinical Indication: 77-year-old female, left lower extremity edema Technique: Multiple real-time grayscale sonographic images were obtained throughout left lower extremity with additional color Doppler and duplex acquisitions to examine the deep venous systems. Comparison: None Findings: There are no areas of narrowing or occlusion within the deep veins of the left lower extremity. The common femoral, upper deep femoral, femoral, popliteal, and upper greater saphenous are widely patent and fully compressible. The visualized calf veins are patent. Color and duplex appearance are normal. Mild subcutaneous edema within the left calf and ankle. No evidence of mass or fluid collection within the left lower extremity. IMPRESSION Mild subcutaneous edema within the left ankle and calf without evidence of acute femoral/popliteal DVT in the left lower extremity. By my electronic signature, I attest that I have personally reviewed the images for this examination and formulated the interpretations and opinions expressed in this report Finalized by Genaro Treviño M.D. on 05/26/2018 5:54 PM. Dictated by Janelle Orozco M.D. on 05/26/2018 5:48 PM. Performing Organization Address City/State/Zipcode Phone Number [facility] * FOOT COMP MIN 3 VIEWS LEFT (05/26/2018 5:15 PM CDT) Impressions Performed At Soft tissue mass with irregular surface along the lateral aspect of the foot. [facility] No radiographic evidence of osteomyelitis. Finalized by Mahendra Nagel M.D. on 05/27/2018 7:04 AM. Dictated by Mahendra Nagel M.D. on 05/27/2018 6:57 AM. Narrative Performed At FOOT COMP MIN 3 VIEWS LEFT [facility] History: WOUND/Growth on left lateral foot. , Diabetes, concern for infection Technique: AP, oblique and lateral views of the left foot were obtained Comparison: No prior examinations are available for comparison. Findings: There is a soft tissue mass arising along the lateral aspect of the foot at the level of the base of the fifth metatarsal. This mass has a verrucous or ulcerated surface. There is generalized bony demineralization. No cortical destruction or periosteal reaction to suggest osteomyelitis is seen. No acute fractures or dislocations are identified. There are atherosclerotic calcifications of the trifurcation vessels at the ankle. Procedure Note Interface, Radiant Results - 05/27/2018 7:07 AM CDT FOOT COMP MIN 3 VIEWS LEFT History: WOUND/Growth on left lateral foot. , Diabetes, concern for infection Technique: AP, oblique and lateral views of the left foot were obtained Comparison: No prior examinations are available for comparison. Findings: There is a soft tissue mass arising along the lateral aspect of the foot at the level of the base of the fifth metatarsal. This mass has a verrucous or ulcerated surface. There is generalized bony demineralization. No cortical destruction or periosteal reaction to suggest osteomyelitis is seen. No acute fractures or dislocations are identified. There are atherosclerotic calcifications of the trifurcation vessels at the ankle. IMPRESSION Soft tissue mass with irregular surface along the lateral aspect of the foot. No radiographic evidence of osteomyelitis. Finalized by Mahendra Nagel M.D. on 05/27/2018 7:04 AM. Dictated by Mahendra Nagel M.D. on 05/27/2018 6:57 AM. Performing Organization Address City/State/Zipcode Phone Number [facility] * COMPREHENSIVE METABOLIC PANEL (05/26/2018 4:04 PM CDT) Sodium 136 (L) 137 - 147 MMOL/L [facility] Potassium 5.4 (H) 3.5 - 5.1 MMOL/L [facility] Chloride 102 98 - 110 MMOL/L [facility] Glucose 97 70 - 100 MG/DL [facility] Blood Urea 38 (H) 7 - 25 MG/DL [facility] Nitrogen Creatinine 1.09 (H) 0.4 - 1.00 MG/DL [facility] Calcium 10.4 8.5 - 10.6 MG/DL [facility] Total Protein 8.4 (H) 6.0 - 8.0 G/DL [facility] Total Bilirubin 0.2 (L) 0.3 - 1.2 MG/DL [facility] Albumin 4.8 3.5 - 5.0 G/DL [facility] Alk Phosphatase 77 25 - 110 U/L [facility] AST (SGOT) 22 7 - 40 U/L [facility] CO2 23 21 - 30 MMOL/L [facility] ALT (SGPT) 14 7 - 56 U/L [facility] Anion Gap 11 3 - 12 [facility] eGFR Non 49 (L) >60 mL/min [facility] Comment: [place] The eGFR is not validated for use in drug dosing adjustments.Continue to use estimated creatinine clearance per dosing reference text.Please contact the Clinical Pharmacist for questions. eGFR 59 (L) >60 mL/min [facility] [place] Comment: The eGFR is not validated for use in drug dosing adjustments.Continue to use estimated creatinine clearance per dosing reference text.Please contact the Clinical Pharmacist for questions. Specimen Blood Performing Organization Address City/[facility]/Zipcode Phone Number [facility] [address] [place] [address] * SED RATE (05/26/2018 4:04 PM CDT) Sed Rate -ESR 83 (H) 0 - 30 MM/HR [facility] Specimen Blood Performing Organization Address City/[facility]/Zipcode Phone Number [facility] [address] [place] [address] * C REACTIVE PROTEIN (CRP) (05/26/2018 4:04 PM CDT) C-Reactive 2.28 (H) <1.0 MG/DL [facility] Protein Specimen Blood Performing Organization Address City/[facility]/Zipcode Phone Number [facility] [address] [place] [phone] * CBC AND DIFF (05/26/2018 4:04 PM CDT) White Blood 6.8 4.5 - 11.0 K/UL [facility] Cells RBC 4.10 4.0 - 5.0 M/UL [facility] Hemoglobin 13.6 12.0 - 15.0 GM/DL [facility] Hematocrit 40.5 36 - 45 % [facility] MCV 98.9 80 - 100 FL [facility] MCH 33.2 26 - 34 PG [facility] MCHC 33.5 32.0 - 36.0 G/DL [facility] RDW 13.3 11 - 15 % [facility] Platelet Count 326 150 - 400 K/UL [facility] MPV 7.1 7 - 11 FL [facility] Neutrophils 71 41 - 77 % [facility] Lymphocytes 17 (L) 24 - 44 % [facility] Monocytes 8 4 - 12 % [facility] Eosinophils 3 0 - 5 % [facility] Basophils 1 0 - 2 % [facility] Absolute 4.90 1.8 - 7.0 K/UL [facility] Neutrophil Count Absolute Lymph 1.10 1.0 - 4.8 K/UL [facility] Count Absolute 0.50 0 - 0.80 K/UL [facility] Monocyte Count Absolute 0.20 0 - 0.45 K/UL [facility] Eosinophil Count Absolute 0.00 0 - 0.20 K/UL [facility] Basophil Count Specimen Blood Performing Organization Address City/State/Zipcode Phone Number [facility] [address] [place] [address] * ECG-SCAN (05/26/2018 12:00 AM CDT) Narrative Performed At Ordered by an unspecified provider. * ECG-SCAN (05/26/2018 12:00 AM CDT) Narrative Performed At Ordered by an unspecified provider. * ECG-SCAN (05/26/2018 12:00 AM CDT) Narrative Performed At Ordered by an unspecified provider. documented in this encounter Visit Diagnoses Diagnosis Wound cellulitis - Primary Cellulitis and abscess of unspecified site documented in this encounter Administered Medications Action Date Dose Rate Site Medication Order MAR Action 05/26/2018 9:11 PM CDT 600 mg gabapentin (NEURONTIN) capsule 600 mg Given 600 mg, Oral, ONCE, 1 dose, Tue05/26/18 at 2115 05/26/2018 9:11 PM CDT 50 mg traMADol (ULTRAM) tablet 50 mg Given 50 mg, Oral, ONCE, 1 dose, Tue05/26/18 at 2115 documented in this encounter
--- OUTSIDE RECORDS SUMMARY | 2018-06-11 08:56 | XMS REPORT | Clinical Summary ---
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 If you do not see the information that you expected, contact Release of Information in the Health Information Management department at [phone] for further assistance in locating additional records.[facility] Allergies No Known Allergies Medications End [...] (ALEVE Take by 0 PO) mouth. Active amoxicillin/K clavulanate Take one 20 tablet 0 (AUGMENTIN) 875/125 mg tablet by 9 tablet mouth every 12 hours. Take with food. 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 03/25/2015 03/25/2015 Encounters Care Team Description Date Type Specialty No Pcp, Na Appointment Question 05/29/2018 Telephone [facility] Evangelist Rdz DO 05/26/2018 Emergency Emergency Medicine from Last 3 Months Family History Medical History Relation Name Comments [...] 05/26/2018 9:00 PM CDT Blood Pressure 147/74 06/16/2015 2:22 PM CDT Pulse 68 05/26/2018 2:57 PM CDT Temperature 36.8 C (98.3 F) - Respiratory Rate - 05/26/2018 9:00 PM CDT Oxygen Saturation 93% - Inhaled Oxygen - Concentration 05/26/2018 2:57 PM CDT Weight 69.9 kg (154 lb) 05/26/2018 2:57 PM CDT Height 149.9 cm (4' 11") 05/26/2018 2:57 PM CDT Body Mass Index 31.1 Plan of Treatment Health Maintenance Due Date Last Done Comments PHYSICAL (COMPREHENSIVE) 1947 EXAM DTAP/TDAP VACCINES (1 - 1960 Tdap) COLORECTAL CANCER 1992 SCREENING SHINGLES RECOMBINANT 1992 VACCINE (1 of 2) OSTEOPOROSIS 12/13/2007 SCREENING/MONITORING PNEUMONIA (PCV13/PPSV23) 12/13/2007 VACCINES (1 of 2 - PCV13) INFLUENZA VACCINE 11/07/2018 Procedures Comments Procedure Name Priority Date/Time Associated Diagnosis URINALYSIS DIPSTICK POC 05/26/2018 8:00 PM CDT US DOPPLER VENOUS W EXTRM STAT 05/26/2018 LEFT 5:50 PM CDT FOOT COMP MIN 3 VIEWS STAT 05/26/2018 LEFT 5:15 PM CDT ECG 12-LEAD STAT 05/26/2018 5:09 PM CDT COMPREHENSIVE METABOLIC STAT 05/26/2018 PANEL 4:04 PM CDT SED RATE STAT 05/26/2018 4:04 PM CDT C REACTIVE PROTEIN (CRP) STAT 05/26/2018 4:04 PM CDT CBC AND DIFF STAT 05/26/2018 4:04 PM CDT ECG-SCAN 05/26/2018 12:00 AM CDT ECG-SCAN 05/26/2018 12:00 AM CDT ECG-SCAN 05/26/2018 12:00 AM CDT from Last 3 Months Results * URINALYSIS DIPSTICK POC (05/26/2018 8:00 PM CDT) Urine Color POC YELLOW [facility] Urine Turbidity CLEAR CLEAR-CLEAR [facility] POC Urine Specific 1.010 1.003 - 1.035 [facility] [place] POC Urine PH POC 5.5 5.0 - [...] City/State/Zipcode Phone Number [facility] [address] [place] [address] * US DOPPLER VENOUS W EXTRM LEFT [...] on 05/27/2018 6:57 AM. Performing Organization Address [facility]/Zipcode Phone Number RAD RESULTS * SED RATE (05/26/2018 4:04 PM CDT) Pathologist [facility] Sed Rate -ESR 83 (H) 0 - 30 MM/[facility] Specimen Blood Performing Organization Address City/[facility]/Zipcode Phone Number MAIN LAB [address] [address] * CBC AND DIFF (05/26/2018 4:04 PM CDT) White Blood 6.8 4.5 - 11.0 K/UL [facility] Cells RBC 4.10 4.0 - 5.0 [...] Basophil Count Specimen Blood Performing Organization Address City/[facility] Phone Number [facility] [address] [place] [address] * C REACTIVE PROTEIN (CRP) (05/26/2018 4:04 PM CDT) Pathologist [facility] C-Reactive 2.28 (H) <1.0 MG/DL [facility] Protein Specimen Blood Performing Organization Address City/[facility] Phone Number [facility] [address] [place] [address] * COMPREHENSIVE METABOLIC PANEL (05/26/2018 4:04 PM [...] LAB Anion Gap 11 3 - 12 [facility] eGFR Non 49 (L) >60 mL/min [facility] Comment: [place] The eGFR is not validated for use in drug dosing adjustments.Continue to use estimated creatinine clearance per dosing reference text.Please contact the Clinical Pharmacist for questions. eGFR 59 (L) >60 mL/min [facility] [place] Comment: The eGFR is not validated for use in drug dosing adjustments.Continue to use estimated creatinine clearance per dosing reference text.Please contact the Clinical Pharmacist for questions. Specimen Blood Performing Organization Address City/State/Zipcode Phone Number [facility] [address] [place] [address] * ECG-SCAN (05/26/2018 12:00 AM CDT) Narrative Performed At Ordered by an unspecified provider. * ECG-SCAN (05/26/2018 12:00 AM CDT) Narrative Performed At Ordered by an unspecified provider. * ECG-SCAN (05/26/2018 12:00 AM CDT) Narrative Performed At Ordered by an unspecified provider. from Last 3 Months Insurance Type Payer Benefit Subscriber ID Effective Phone Address Plan / Dates Group Medicare MEDICARE MEDICARE xxxxxxxxxxx 1972-P PART A AND resent B Medicaid [place] [employer] xxxxxxxxxxx 2009- STATE Present HEALTH Advance Directives Patient has advance care planning documents on file. For more information, please contact: [facility] [address] [place] [address]
--- OUTSIDE RECORDS SUMMARY | 2018-06-11 08:59 | XMS REPORT | Continuity of Care Document ---
Author Organization Unknown Address Unknown Allergies Active Description Code Type Severity Reaction Onset Reported/Identified Relationship to Patient Clinical Status Yes No Known Drug Allergies [id number] Drug Allergy Unknown N/A 01/23/2017 Medications There [...] RANDY, REGINALDOAN N Ot 715.89 12/30/2014 RANDY, DANNY N Ot V10.3 12/30/2014 RANDY, BOBAN N [...] 12/02/2015 DANNY PADILLA N Ot Z79.899 OTHER CARE HOME (CURRENT) DRUG THERAPY 12/02/2015 DANNY PADILLA N [...] 12/08/2015 DANNY PADILLA N Ot Z79.899 OTHER PATTERN DRAFTER (CURRENT) DRUG THERAPY 12/08/2015 RANDYDANNY SHUKLA N [...] 12/23/2015 DANNY PADILLA N Ot Z79.899 OTHER PATTERN DRAFTER (CURRENT) DRUG THERAPY 12/23/2015 DANNY PADILLA N [...] 12/31/2015 DANNY PADILLA N Ot Z79.899 OTHER PATTERN DRAFTER (CURRENT) DRUG THERAPY 12/31/2015 RANDYDANNY SHUKLA N Ot Z85.3 PERSONAL HISTORY OF MALIGNANT NEOPLASM O 12/31/2015 RANDY, REGINALDOKALLI N Ot Z92.3 PERSONAL HISTORY OF IRRADIATION 09/17/2016 Carlos Melchor MD L90.0 Lichen sclerosus et atrophicus 12/10/2016 DANNY PADILLA Ot E08.40 DIABETES DUE TO UNDERLYING CONDITION W D 12/10/2016 DANNY PADILLA Kodi Ot G62.9 POLYNEUROPATHY, UNSPECIFIED 12/10/2016 DANNY PADILLA Ot Z08 ENCNTR FOR FOLLOW-UP EXAM AFTER TRTMT FO 12/10/2016 DANNY PADILLA Ot Z79.899 OTHER PATTERN DRAFTER (CURRENT) DRUG THERAPY 12/10/2016 DANNY PADILLA Kodi [...] Ot V67.1 RADIOTHERAPY FOLLOW-UP 01/23/2017 DANNY PADILLA Ot 356.9 IDIO PERIPH NEURPTHY NOS 01/23/2017 [...] V58.69 OTH MED,LT,CURRENT USE 01/23/2017 DANNY PADILLA Ot V67.1 RADIOTHERAPY FOLLOW-UP 01/23/2017 DANNY PADILLA Ot E08.40 DIABETES DUE TO UNDERLYING CONDITION W D 01/23/2017 DANNY PADILLA N Ot G62.9 POLYNEUROPATHY, UNSPECIFIED 01/23/2017 DANNY PADILLA N Ot Z08 ENCNTR FOR FOLLOW-UP EXAM AFTER TRTMT FO 01/23/2017 DANNY PADILLA N Ot Z79.899 OTHER CARE HOME (CURRENT) DRUG THERAPY 01/23/2017 DANNY PADILLA N [...] 01/23/2017 DANNY PADILLA N Ot Z79.899 OTHER PATTERN DRAFTER (CURRENT) DRUG THERAPY 01/23/2017 DANNY PADILLA N [...] 01/23/2017 DANNY PADILLA N Ot Z79.899 OTHER PATTERN DRAFTER (CURRENT) DRUG THERAPY 01/23/2017 DANNY PADILLA N Ot Z85.3 PERSONAL HISTORY OF MALIGNANT NEOPLASM O 01/23/2017 RANDY REGINALDOKALLI N Ot Z92.3 PERSONAL HISTORY OF IRRADIATION 01/24/2017 DANISH CARRILLO, MARYANN Spicer Ot E11.9 TYPE 2 DIABETES MELLITUS WITHOUT COMPLIC 01/24/2017 MARYANN PENG MD Ot E78.00 PURE HYPERCHOLESTEROLEMIA, UNSPECIFIED 01/24/2017 MARYANN [...] EPISTAXIS 01/24/2017 MARYANN PENG MD Ot Z79.82 PATTERN DRAFTER (CURRENT) USE OF ASPIRIN 01/26/2017 MARYANN PENG [...] EPISTAXIS 01/26/2017 MARYANN PENG MD Ot Z79.82 CARE HOME (CURRENT) USE OF ASPIRIN 02/02/2017 DANNY PADILLA Ot E08.40 DIABETES DUE TO UNDERLYING CONDITION W D 02/02/2017 DANNY PADILLA Ot G62.9 POLYNEUROPATHY, UNSPECIFIED 02/02/2017 DANNY PADILLA Ot Z08 ENCNTR FOR FOLLOW-UP EXAM AFTER TRTMT FO 02/02/2017 DANNY PADILLA Ot Z79.899 OTHER CARE HOME (CURRENT) DRUG THERAPY 02/02/2017 DANNY PADILLA Ot Z85.3 PERSONAL HISTORY OF MALIGNANT NEOPLASM O 02/02/2017 DANNY PADILLA Ot Z92.3 PERSONAL HISTORY OF IRRADIATION 02/04/2017 RANDY, BOBAN N Ot E08.40 DIABETES DUE TO UNDERLYING CONDITION W D 02/04/2017 DANNY PADILLA N Ot G62.9 POLYNEUROPATHY, UNSPECIFIED 02/04/2017 RANDY DANNY N Ot Z08 ENCNTR FOR FOLLOW-UP EXAM AFTER TRTMT FO 02/04/2017 RANDY REGINALDOKALLI N Ot Z79.899 OTHER PATTERN DRAFTER (CURRENT) DRUG THERAPY 02/04/2017 RANDY DANNY N Ot Z85.3 PERSONAL HISTORY OF MALIGNANT NEOPLASM O 02/04/2017 RANDY DANNY N Ot Z92.3 PERSONAL HISTORY OF IRRADIATION 02/23/2017 Ruiz CARRILLO, Carlos Gamez R15.9 Fecal incontinence 03/09/2017 RANDY, DANNY N Ot E08.40 DIABETES DUE TO UNDERLYING CONDITION W D 03/09/2017 DANNY PADILLA N Ot G62.9 POLYNEUROPATHY, UNSPECIFIED 03/09/2017 RANDY, DANNY N Ot Z08 ENCNTR FOR FOLLOW-UP EXAM AFTER TRTMT FO 03/09/2017 RANDY DANNY N Ot Z79.899 OTHER PATTERN DRAFTER (CURRENT) DRUG THERAPY 03/09/2017 RANDY DANNY N Ot Z85.3 PERSONAL HISTORY OF MALIGNANT NEOPLASM O 03/09/2017 RANDY, DANNY N Ot Z92.3 PERSONAL HISTORY OF IRRADIATION 03/10/2017 RANDY DANNY N Ot E08.40 DIABETES DUE TO UNDERLYING CONDITION W D 03/10/2017 RANDY REGINALDOKALLI N Ot G62.9 POLYNEUROPATHY, UNSPECIFIED 03/10/2017 RANDY DANNY N Ot Z08 ENCNTR FOR FOLLOW-UP EXAM AFTER TRTMT FO 03/10/2017 RANDY DANNY N Ot Z79.899 OTHER PATTERN DRAFTER (CURRENT) DRUG THERAPY 03/10/2017 RANDY DANNY N Ot Z85.3 PERSONAL HISTORY OF MALIGNANT NEOPLASM O 03/10/2017 DANNY PADILLA N Ot Z92.3 PERSONAL HISTORY OF IRRADIATION 03/07/2018 DANNY PADILLA N Ot 356.9 IDIO PERIPH NEURPTHY NOS 03/07/2018 DANNY PADILLA N Ot 715.89 OSTEOARTHROSIS-MULT SITE 03/07/2018 DANNY PADILLA Ot V10.3 HX OF BREAST MALIGNANCY 03/07/2018 DANNY PADILLA N Ot V58.66 LONG-TERM (CURRENT) USE OF ASPIRIN 03/07/2018 DANNY PADILLA Kodi Ot V58.69 OTH MED,LT,CURRENT USE 03/07/2018 DANNY PADILLA Kodi Ot V67.1 RADIOTHERAPY FOLLOW-UP 03/07/2018 DANNY PADILLA Kodi Ot 356.9 IDIO PERIPH NEURPTHY NOS 03/07/2018 RANDY REGINALDOKALLI Kodi Ot 715.89 OSTEOARTHROSIS-MULT SITE 03/07/2018 RANDY DANNY Mariee Ot V10.3 HX OF BREAST MALIGNANCY 03/07/2018 RANDY DANNY Mariee Ot V58.66 LONG-TERM (CURRENT) USE OF ASPIRIN 03/07/2018 DANNY PADILLA Kodi Ot V58.69 OTH MED,LT,CURRENT USE 03/07/2018 RANDY REGINALDOKALLI Kodi Ot V67.1 RADIOTHERAPY FOLLOW-UP 03/07/2018 RANDY REGINALDOKALLI Kodi Ot E08.40 DIABETES DUE TO UNDERLYING CONDITION W D 03/07/2018 RANDY DANNY Mariee Ot G62.9 POLYNEUROPATHY, UNSPECIFIED 03/07/2018 RANDY DANNY N Ot Z08 ENCNTR FOR FOLLOW-UP EXAM AFTER TRTMT FO 03/07/2018 REGINALDO PADILLAKALLI N Ot Z79.899 OTHER PATTERN DRAFTER (CURRENT) DRUG THERAPY 03/07/2018 RANDY DANNY N Ot Z85.3 PERSONAL HISTORY OF MALIGNANT NEOPLASM O 03/07/2018 RANDY, DANNY N Ot Z92.3 PERSONAL HISTORY OF IRRADIATION 03/07/2018 RANDYDANNY N Ot E08.40 DIABETES DUE TO UNDERLYING CONDITION W D 03/07/2018 RANDY DANNY Mariee Ot G62.9 POLYNEUROPATHY, UNSPECIFIED 03/07/2018 RANDY DANNY N Ot Z08 ENCNTR FOR FOLLOW-UP EXAM AFTER TRTMT FO 03/07/2018 RANDY REGINALDOKALLI N Ot Z79.899 OTHER PATTERN DRAFTER (CURRENT) DRUG THERAPY 03/07/2018 RANDY DANNY N Ot Z85.3 PERSONAL HISTORY OF MALIGNANT NEOPLASM O 03/07/2018 RANDY, DANNY N Ot Z92.3 PERSONAL HISTORY OF IRRADIATION 03/07/2018 RANDYDANNY N Ot E08.40 DIABETES DUE TO UNDERLYING CONDITION W D 03/07/2018 DANNY PADILLA Kodi Ot G62.9 POLYNEUROPATHY, UNSPECIFIED 03/07/2018 DANNY PADILLA Kodi Ot Z08 ENCNTR FOR FOLLOW-UP EXAM AFTER TRTMT FO 03/07/2018 DANNY PADILLA Kodi Ot Z79.899 OTHER PATTERN DRAFTER (CURRENT) DRUG THERAPY 03/07/2018 DANNY PADILLA Kodi Ot Z85.3 PERSONAL HISTORY OF MALIGNANT NEOPLASM O 03/07/2018 RANDY REGINALDOKALLI Kodi Ot Z92.3 PERSONAL HISTORY OF IRRADIATION 03/08/2018 DANNY PADILLA Kodi Ot 356.9 IDIO PERIPH NEURPTHY NOS 03/08/2018 DANNY PADILLA N Ot 715.89 OSTEOARTHROSIS-MULT SITE 03/08/2018 DANNY PADILLA Kodi Ot V10.3 HX OF BREAST MALIGNANCY 03/08/2018 RANDY REGINALDOKALLI Kodi Ot V58.66 LONG-TERM (CURRENT) USE OF ASPIRIN 03/08/2018 RANDY DANNY Mariee Ot V58.69 OTH MED,LT,CURRENT USE 03/08/2018 DANNY PADILLA Kodi Ot V67.1 RADIOTHERAPY FOLLOW-UP 03/08/2018 DANNY PADILLA Kodi Ot 356.9 IDIO PERIPH NEURPTHY NOS 03/08/2018 RANDY REGINALDOKALLI N Ot 715.89 OSTEOARTHROSIS-MULT SITE 03/08/2018 DANNY PADILLA Kodi Ot V10.3 HX OF BREAST MALIGNANCY 03/08/2018 RANDY REGINALDOKALLI Kodi Ot V58.66 LONG-TERM (CURRENT) USE OF ASPIRIN 03/08/2018 RANDY REGINALDOKALLI Kodi Ot V58.69 OTH MED,LT,CURRENT USE 03/08/2018 RANDY REGINALDOKALLI Kodi Ot V67.1 RADIOTHERAPY FOLLOW-UP 03/08/2018 DANNY PADILLA Kodi Ot E08.40 DIABETES DUE TO UNDERLYING CONDITION W D 03/08/2018 RANDY DANNY Mariee Ot G62.9 POLYNEUROPATHY, UNSPECIFIED 03/08/2018 RANDY REGINALDOKALLI Kodi Ot Z08 ENCNTR FOR FOLLOW-UP EXAM AFTER TRTMT FO 03/08/2018 DANNY PADILLA Kodi Ot Z79.899 OTHER PATTERN DRAFTER (CURRENT) DRUG THERAPY 03/08/2018 RANDY, DANNY Mariee Ot Z85.3 PERSONAL HISTORY OF MALIGNANT NEOPLASM O 03/08/2018 DANNY PADILLA N Ot Z92.3 PERSONAL HISTORY OF IRRADIATION 03/08/2018 DANNY PADILLA Ot E08.40 DIABETES DUE TO UNDERLYING CONDITION W D 03/08/2018 DANNY PADILLA Ot G62.9 POLYNEUROPATHY, UNSPECIFIED 03/08/2018 DANNY PADILLA Ot Z08 ENCNTR FOR FOLLOW-UP EXAM AFTER TRTMT FO 03/08/2018 DANNY PADILLA Ot Z79.899 OTHER PATTERN DRAFTER (CURRENT) DRUG THERAPY 03/08/2018 DANNY PADILLA N Ot Z85.3 PERSONAL HISTORY OF MALIGNANT NEOPLASM O 03/08/2018 DANNY PADILLA N Ot Z92.3 PERSONAL HISTORY OF IRRADIATION 03/08/2018 DANNY PADILLA Ot E08.40 DIABETES DUE TO UNDERLYING CONDITION W D 03/08/2018 DANNY PADILLA Ot G62.9 POLYNEUROPATHY, UNSPECIFIED 03/08/2018 DANNY PADILLA N Ot Z08 ENCNTR FOR FOLLOW-UP EXAM AFTER TRTMT FO 03/08/2018 DANNY PADILLA Ot Z79.899 OTHER CARE HOME (CURRENT) DRUG THERAPY 03/08/2018 DANNY PADILLA N [...] MD Ot Z97.4 PRESENCE OF EXTERNAL HEARING-AID 05/07/2018 RON LOPEZ MD Ot E11.40 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 05/07/2018 RON LOPEZ MD Ot E78.00 PURE HYPERCHOLESTEROLEMIA, UNSPECIFIED 05/07/2018 RON LOPEZ MD, Ot F41.9 ANXIETY DISORDER, UNSPECIFIED 05/07/2018 RON LOPEZ MD, Ot G25.81 RESTLESS LEGS SYNDROME 05/07/2018 RON LOPEZ MD, Ot G47.30 SLEEP APNEA, UNSPECIFIED 05/07/2018 RON LOPEZ MD, 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 05/07/2018 RON LOPEZ MD Ot I10 ESSENTIAL (PRIMARY) HYPERTENSION 05/07/2018 RON LOPEZ MD, Ot K59.00 CONSTIPATION, UNSPECIFIED 05/07/2018 RON LOPEZ MD, Ot N39.0 URINARY TRACT INFECTION, SITE NOT SPECIF 05/07/2018 RON LOPEZ MD, Ot N63.10 UNSPECIFIED LUMP IN THE RIGHT BREAST, UN 05/07/2018 RON LOPEZ MD, Ot R10.31 RIGHT LOWER QUADRANT PAIN 05/07/2018 RON LOPEZ MD, Ot Z79.4 PATTERN DRAFTER (CURRENT) USE OF INSULIN 05/07/2018 RON LOPEZ MD Ot Z79.51 CARE HOME (CURRENT) USE OF INHALED STERO 05/07/2018 RON LOPEZ MD, Ot Z79.82 CARE HOME (CURRENT) USE OF ASPIRIN 05/07/2018 RON LOPEZ MD, Ot Z85.3 PERSONAL HISTORY OF MALIGNANT NEOPLASM O 05/07/2018 RON LOPEZ MD Ot Z87.19 PERSONAL HISTORY OF OTHER DISEASES OF TH 05/07/2018 RON LOPEZ MD Ot Z92.21 PERSONAL HISTORY OF ANTINEOPLASTIC CHEMO 05/07/2018 RON LOPEZ MD Ot Z98.890 OTHER SPECIFIED POSTPROCEDURAL STATES 05/11/2018 RON LOPEZ MD Ot E11.40 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 05/11/2018 RON LOPEZ MD, Ot E78.00 PURE HYPERCHOLESTEROLEMIA, UNSPECIFIED 05/11/2018 RON LOPEZ MD, Ot F41.9 ANXIETY DISORDER, UNSPECIFIED 05/11/2018 RON LOPEZ MD, Ot G25.81 RESTLESS LEGS SYNDROME 05/11/2018 RON LOPEZ MD, Ot G47.30 SLEEP APNEA, UNSPECIFIED 05/11/2018 RON LOPEZ MD, 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 05/11/2018 RON LOPEZ MD, Ot I10 ESSENTIAL (PRIMARY) HYPERTENSION 05/11/2018 RON LOPEZ MD, Ot K59.00 CONSTIPATION, UNSPECIFIED 05/11/2018 RON LOPEZ MD, Ot N39.0 URINARY TRACT INFECTION, SITE NOT SPECIF 05/11/2018 RON LOPEZ MD, Ot N63.10 UNSPECIFIED LUMP IN THE RIGHT BREAST, UN 05/11/2018 RON LOPEZ MD, Ot R10.31 RIGHT LOWER QUADRANT PAIN 05/11/2018 RON LOPEZ MD, Ot Z79.4 CARE HOME (CURRENT) USE OF INSULIN 05/11/2018 RON LOPEZ MD, Ot Z79.51 CARE HOME (CURRENT) USE OF INHALED STERO 05/11/2018 RON LOPEZ MD, Ot Z79.82 CARE HOME (CURRENT) USE OF ASPIRIN 05/11/2018 RON LOPEZ MD, Ot Z85.3 PERSONAL HISTORY OF MALIGNANT NEOPLASM O 05/11/2018 RON LOPEZ MD, Ot Z87.19 PERSONAL HISTORY OF OTHER DISEASES OF TH 05/11/2018 RON LOPEZ MD, Ot Z92.21 PERSONAL HISTORY OF ANTINEOPLASTIC CHEMO 05/11/2018 RON LOPEZ MD, Ot Z98.890 OTHER SPECIFIED POSTPROCEDURAL STATES 05/15/2018 ERENDIRA KEANE MD Ot E87.5 HYPERKALEMIA 05/17/2018 ERENDIRA KEANE MD Ot E87.5 HYPERKALEMIA 05/17/2018 ERENDIRA KEANE MD Ot E87.5 HYPERKALEMIA 06/02/2018 ERENDIRA KEANE MD, Ot E87.5 HYPERKALEMIA Procedures There is no data. Results Test [...] measurement by glucometer (mass/volume) 213 mg/dL 70-110 Complete blood count (CBC) with automated white blood cell (WBC) differential - 05/07/18 20:11 Blood leukocytes automated count (number/volume) 9.1 10*3/uL 4.3-11.0 Blood erythrocytes automated count (number/volume) 3.98 10*6/uL 4.35-5.85 Venous blood hemoglobin measurement (mass/volume) 13.2 g/dL 11.5-16.0 Blood hematocrit (volume fraction) 40 % 35-52 Automated erythrocyte mean corpuscular volume 100 [foz_us] 80-99 Automated erythrocyte mean corpuscular hemoglobin (mass per erythrocyte) 33 pg 25-34 Automated erythrocyte mean corpuscular hemoglobin concentration measurement ( mass/volume) 33 g/dL 32-36 Automated erythrocyte distribution width ratio 12.9 % 10.0-14.5 Automated blood platelet count (count/volume) 189 10*3/uL 130-400 Automated blood platelet mean volume measurement 9.6 [foz_us] 7.4-10.4 Automated blood neutrophils/100 leukocytes 75 % 42-75 Automated blood lymphocytes/100 leukocytes 11 % 12-44 Blood monocytes/100 leukocytes 9 % 0-12 Automated blood eosinophils/100 leukocytes 3 % 0-10 Automated blood basophils/100 leukocytes 1 % 0-10 Blood neutrophils automated count (number/volume) 6.8 10*3 1.8-7.8 Blood lymphocytes automated count (number/volume) 1.0 10*3 1.0-4.0 Blood monocytes automated count (number/volume) 0.8 10*3 0.0-1.0 Automated eosinophil count 0.3 10*3/uL 0.0-0.3 Automated blood basophil count (count/volume) 0.1 10*3/uL 0.0-0.1 Comprehensive metabolic panel - 05/07/18 20:11 Serum or plasma sodium measurement (moles/volume) 136 mmol/L 135-145 Serum or plasma potassium measurement (moles/volume) 6.6 mmol/L 3.6-5.0 Serum or plasma chloride measurement (moles/volume) 99 mmol/L 98-107 Carbon dioxide 25 mmol/L 21-32 Serum or plasma anion gap determination (moles/volume) 12 mmol/L 5-14 Serum or plasma urea nitrogen measurement (mass/volume) 35 mg/dL 7-18 Serum or plasma creatinine measurement (mass/volume) 0.85 mg/dL 0.60-1.30 Serum or plasma urea nitrogen/creatinine mass ratio 41 NRG Serum or plasma creatinine measurement with calculation of estimated glomerular filtration rate > NRG Serum or plasma glucose measurement (mass/volume) 145 mg/dL 70-105 Serum or plasma calcium measurement (mass/volume) 10.3 mg/dL 8.5-10.1 Serum or plasma total bilirubin measurement (mass/volume) 0.2 mg/dL 0.1-1.0 Serum or plasma alkaline phosphatase measurement (enzymatic activity/volume) 71 U/L 40-136 Serum or plasma aspartate aminotransferase measurement (enzymatic activity/ volume) 22 U/L 5-34 Serum or plasma alanine aminotransferase measurement (enzymatic activity/volume ) 22 U/L 0-55 Serum or plasma protein measurement (mass/volume) 8.1 g/dL 6.4-8.2 Serum or plasma albumin measurement (mass/volume) 4.9 g/dL 3.2-4.5 Lipase - 05/07/18 20:11 Lipase 33 U/L 8-78 Complete urinalysis with reflex to culture - 05/07/18 20:21 Urine color determination ROXANNA NRG Urine clarity determination CLOUDY NRG Urine pH measurement by test strip 6.0 5-9 Specific gravity of urine by test strip 1.015 1.016- 1.022 Urine protein assay by test strip, semi-quantitative 2+ NEGATIVE Urine glucose detection by automated test strip NEGATIVE NEGATIVE Erythrocytes detection in urine sediment by light microscopy 3+ NEGATIVE Urine ketones detection by automated test strip NEGATIVE NEGATIVE Urine nitrite detection by test strip POSITIVE NEGATIVE Urine total bilirubin detection by test strip NEGATIVE NEGATIVE Urine urobilinogen measurement by automated test strip (mass/volume) 0.2 mg/dL NORMAL Urine leukocyte esterase detection by dipstick 1+ NEGATIVE Automated urine sediment erythrocyte count by microscopy (number/high power field) > [HPF] NRG Automated urine sediment leukocyte count by microscopy (number/high power field ) [HPF] NRG Bacteria detection in urine sediment by light microscopy MODERATE NRG Squamous epithelial cells detection in urine sediment by light microscopy 0-2 NRG Crystals detection in urine sediment by light microscopy NONE NRG Casts detection in urine sediment by light microscopy NONE NRG Mucus detection in urine sediment by light microscopy NONE NRG Complete urinalysis with reflex to culture YES NRG Bacterial urine culture - 05/07/18 20:21 Bacterial urine culture [id number] NRG COLONY COUNT >100,000/ML NRG FTX;REPORTABLE SENSITIVITY REPORTED 05/10/18 15:05 NRG FREE TEXT ENTRY 2 ID REPORTED 05/09/18 16:05 NR RML Sensitivity Panel - 05/07/18 20:21 Gentamicin susceptibility test by minimum inhibitory concentration < = NRG Trimethoprim/sulfamethoxazole susceptibility test by minimum inhibitoryconcentration <= NRG Levofloxacin susceptibility test by minimum inhibitory concentration <= NRG Ampicillin susceptibility test by minimum inhibitory concentration < = NRG Cefazolin susceptibility test by minimum inhibitory concentration 2 NRG Ceftriaxone susceptibility test by minimum inhibitory concentration <= NRG Ciprofloxacin susceptibility test by minimum inhibitory concentration <= NRG Meropenem susceptibility test by minimum inhibitory concentration < NRG Nitrofurantoin susceptibility test by minimum inhibitory concentration <= NRG Amoxicillin and clavulanate potassium susc TREVOR <= NRG Serum or plasma potassium measurement (moles/volume) - 05/07/18 22:13 Serum or plasma potassium measurement (moles/volume) 6.3 mmol/L 3.6-5.0 Whole blood basic metabolic panel - 05/12/18 13:50 Serum or plasma sodium measurement (moles/volume) 134 mmol/L 135-145 Serum or plasma potassium measurement (moles/volume) 5.2 mmol/L 3.6-5.0 Serum or plasma chloride measurement (moles/volume) 95 mmol/L 98-107 Carbon dioxide 25 mmol/L 21-32 Serum or plasma anion gap determination (moles/volume) 14 mmol/L 5-14 Serum or plasma urea nitrogen measurement (mass/volume) 37 mg/dL 7-18 Serum or plasma creatinine measurement (mass/volume) 0.97 mg/dL 0.60-1.30 Serum or plasma urea nitrogen/creatinine mass ratio 38 NRG Serum or plasma creatinine measurement with calculation of estimated glomerular filtration rate 56 NRG Serum or plasma glucose measurement (mass/volume) 158 mg/dL 70-105 Serum or plasma calcium measurement (mass/volume) 9.8 mg/dL 8.5-10.1 Encounters ACCT No. Visit Date/Time Discharge Status Pt. Type Provider Facility Loc./Unit Complaint [id number] 08/25/2017 14:55:02 ACT Unknown Ruiz CARRILLO, Carlos Gamez [id number] 06/02/2018 11:00:00 06/02/2018 23:59:59 CLS Outpatient ERENDIRA KEANE [facility] [id number] 05/12/2018 13:33:00 05/12/2018 23:59:59 CLS Outpatient ERENDIRA KEANE MD [facility] LAB FS E875 [id number] 05/07/2018 19:21:00 05/07/2018 23:20:00 DIS Emergency JESSICA CARRILLO, RON [place] [facility] ER FS RT SIDE PAIN [id number] 03/07/2018 23:02:00 03/10/2018 13:30:00 DIS Inpatient BENJAMÍN BARROW MD [facility] 4TH SMALL BOWEL ILEUS [id number] 03/10/2017 00:13:00 03/10/2017 23:59:59 CLS Preadmit DANNY PADILLA [facility] ONC [id number] 12/09/2016 12:14:00 03/09/2017 00:01:00 DIS Outpatient DANNY PADILLA [facility] ONC [id number] 01/23/2017 07:06:00 01/24/2017 09:35:00 DIS Outpatient MARYANN PENG MD [facility] SDC NOSE BLEED [id number] 12/02/2015 10:42:00 12/02/2015 23:59:59 CLS Outpatient DANNY PADILLA [place] [facility] FS [id number] 11/26/2014 11:00:00 11/26/2014 23:59:59 CLS Outpatient DANNY PADILLA [place] [facility] FS [id number] 11/20/2013 10:16:00 11/20/2013 23:59:59 CLS Outpatient DANNY PADILLA [place] [facility] FS [id number] 11/28/2012 12:59:00 11/28/2012 23:59:59 CLS Outpatient DANNY PADILLA [place] [facility] FS [id number] 11/30/2011 13:04:00 Document Registration [id number] 11/03/2010 12:51:00 Document Registration [id number] 11/04/2009 13:41:00 Document Registration
--- NOTE | 2018-06-11 09:28 | ED Integumentary General ---
General Chief Complaint: Skin/Wound Problems Stated Complaint: left foot wound History of Present Illness Date Seen by Provider: June 11, 2018 Time Seen by Provider: 09:05 Initial Comments The patient is a 77-year-old female brought in by EMS for evaluation of a left foot wound. The patient is a very poor story and so the history is extremely limited. She tells me that she was recently at for the infection and was on antibiotics. She states that at some point somebody had discussed surgical removal with her. However, she is unsure if this is actually scheduled at this point. She is unable to tell me how long the lesion has been on her left foot, for example she cannot tell me if it has been there for 2 months or 2 years. Apparently family spoke with EMS and was concerned about infection to left foot that appear to be worsening. No family is here at this time to provide additional history. Also the patient complained of some hematuria. On arrival the patient appears comfortable and is in no distress. Timing/Duration: other (unknown) Severity: mild, moderate Location: feet (left lateral foot) Modifying Factors: improves with other (no modifying or alleviating factors) Associated Symptoms: other (left foot pain) Allergies and Home Medications Allergies Coded Allergies: No Known Drug Allergies (Unverified , 01/23/17) Home Medications Acetaminophen 500 Mg Tablet, 500-1,000 MG PO Q6H PRN for PAIN-MILD, (Reported) Allopurinol 100 Mg Tablet, 100 MG PO DAILY, (Reported) Alprazolam 0.5 Mg Tablet, 0.5 MG PO BID, (Reported) Aspirin 81 Mg Tablet.dr, 81 MG PO HS, (Reported) Azithromycin 250 Mg Tablet, 250 MG PO DAILY Prescribed by: KELLY PRINCE on 03/10/18957 Calcium Carbonate 600 Mg Tablet, 600 MG PO DAILY, (Reported) Cephalexin 500 Mg Capsule, 500 MG PO BID Prescribed by: KELLY PRINCE on 03/10/18957 Fluticasone Propionate 16 Gm Rogers.susp, 1 SPRAY NS DAILY PRN for ALLERGIES, ( Reported) Gabapentin 600 Mg Tablet, 600 MG PO QID, (Reported) Gemfibrozil 600 Mg Tablet, 600 MG PO BID, (Reported) Glipizide 5 Mg Tablet, 5 MG PO BID, (Reported) Mirabegron 25 Mg Tab.er.24h, 25 MG PO DAILY, (Reported) Montelukast Sodium 10 Mg Tablet, 10 MG PO HS, (Reported) Multivitamin 1 Each Tablet, 1 TAB PO DAILY, (Reported) Nitrofurantoin Monohyd/M-Cryst 100 Mg Capsule, 1 TAB PO BID Prescribed by: RON LOPEZ on 05/07/18 8226 Omeprazole 20 Mg Capsule.dr, 20 MG PO DAILY, (Reported) Primidone 50 Mg Tablet, 50 MG PO BID, (Reported) Sertraline HCl 50 Mg Tablet, 50 MG PO DAILY, (Reported) Tramadol HCl 50 Mg Tablet, 25 MG PO BID, (Reported) TAKES 1/2 (50MG) TABLET Valsartan 160 Mg Tablet, 80 MG PO DAILY, (Reported) TAKES 1/2 (160MG) TABLET Patient Home Medication List Home Medication List Reviewed: Yes Review of Systems Review of Systems Constitutional: no symptoms reported EENTM: no symptoms reported Respiratory: no symptoms reported Cardiovascular: no symptoms reported Gastrointestinal: no symptoms reported Genitourinary: hematuria Musculoskeletal: other (left lateral foot pain) Skin: other (left foot pain/redness) Psychiatric/Neurological: No Symptoms Reported Endocrine: No Symptoms Reported Hematologic/Lymphatic: No Symptoms Reported All Other Systems Reviewed Negative Unless Noted: Yes Past Nsingzj-Kldcgi-Dxlzig Hx Past Med/Social Hx: Reviewed Nursing Past Med/Soc Hx, Reviewed and Corrections made Patient Social History Type Used: Cigarettes Recent Hopitalizations: No Seasonal Allergies Seasonal Allergies: No Past Medical History Surgeries: Yes Abdominal, Bowel Surgery, Breast, Gallbladder Respiratory: Yes Sleep Apnea Cardiac: Yes High Cholesterol, Hypertension Neurological: Yes (GUILLAIN-BARRE) 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 Sexually Transmitted Disease: Yes (GONORRHEA) Genitourinary: Yes (INCONTINENCE) Gastrointestinal: Yes Gastrointestinal Bleed Musculoskeletal: Yes (RESTLESS LEGS; GAIT DISTURBANCE) Arthritis Endocrine: Yes Diabetes, Non-Insulin dep HEENT: Yes (NOSEBLEEDS; PERTUSSIS; ) Cataract Hearing Impairment: Deaf, Bilateral Hearing Aide Cancer: Yes Breast Did You Recieve Any Treatments: Yes What Type of Treatment Did You: Chemotherapy, Radiation, Surgical Intervention Psychosocial: Yes Anxiety Integumentary: Yes (CHICKEN POX; STAGE 3 ULCER OF LEFT ANKLE) Blood Disorders: No Physical Exam Vital Signs Vital Signs - First Documented 06/11/18 08:52 Temp 98.1 Pulse 74 Resp 18 B/P (MAP) 141/67 (91) Pulse Ox 94 O2 Delivery Room Air Capillary Refill : General Appearance: WD/WN, no apparent distress HEENT: PERRL/EOMI, normal ENT inspection, pharynx normal Neck: non-tender, full range of motion, supple, normal inspection Cardiovascular: regular rate, rhythm, no edema, no JVD, no murmur Respiratory: chest non-tender, lungs clear, normal breath sounds, no respiratory distress, no accessory muscle use Gastrointestinal: normal bowel sounds, non tender, soft, no organomegaly, no pulsatile mass, other (vertical surgical incision to left abdomen, small periumbilical hernia, non-tender) Back: normal inspection, no CVA tenderness, no vertebral tenderness Extremities: normal range of motion, no pedal edema, no calf tenderness, other (growth/lesion to left lateral foot, hard to touch, no fluctuance, left foot is erythematous) 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, no motor/sensory deficits, alert, normal mood/affect Skin: warm/dry, other (mild erythema to left lateral foot) Skin Problem Character: lesion (left lateral foot chronic-appearing lesion, mild surround erythema/cellulitis) Lymphatic: no adenopathy Progress/Results/Core Measures Results/Orders Lab Results Laboratory Tests Test 06/11/18 10:00 Range/Units White Blood Count 4.3 4.3-11.0 10^3/uL Red Blood Count 4.03 L 4.35-5.85 10^6/uL Hemoglobin 13.4 11.5-16.0 G/DL Hematocrit 40 35-52 % Mean Corpuscular Volume 99 80-99 FL Mean Corpuscular Hemoglobin 33 25-34 PG Mean Corpuscular Hemoglobin Concent 34 32-36 G/DL Red Cell Distribution Width 13.2 10.0-14.5 % Platelet Count 171 130-400 10^3/uL Mean Platelet Volume 9.7 7.4-10.4 FL Neutrophils (%) (Auto) 55 42-75 % Lymphocytes (%) (Auto) 24 12-44 % Monocytes (%) (Auto) 14 H 0-12 % Eosinophils (%) (Auto) 4 0-10 % Basophils (%) (Auto) 1 0-10 % Neutrophils # (Auto) 2.3 1.8-7.8 X 10^3 Lymphocytes # (Auto) 1.0 1.0-4.0 X 10^3 Monocytes # (Auto) 0.6 0.0-1.0 X 10^3 Eosinophils # (Auto) 0.2 0.0-0.3 10^3/uL Basophils # (Auto) 0.1 0.0-0.1 10^3/uL Sodium Level 138 135-145 MMOL/L Potassium Level 6.6 *H 3.6-5.0 MMOL/L Chloride Level 100 98-107 MMOL/L Carbon Dioxide Level 23 21-32 MMOL/L Anion Gap 15 H 5-14 MMOL/L Blood Urea Nitrogen 45 H 7-18 MG/DL Creatinine 0.86 0.60-1.30 MG/DL Estimat Glomerular Filtration Rate > 60 BUN/Creatinine Ratio 52 Glucose Level 98 70-105 MG/DL Lactic Acid Level 1.08 0.50-2.00 MMOL/L Calcium Level 9.6 8.5-10.1 MG/DL Corrected Calcium 9.3 8.5-10.1 MG/DL Total Bilirubin 0.3 0.1-1.0 MG/DL Aspartate Amino Transf (AST/SGOT) 52 H 5-34 U/L Alanine Aminotransferase (ALT/SGPT) 40 0-55 U/L Alkaline Phosphatase 82 40-136 U/L Total Protein 7.9 6.4-8.2 GM/DL Albumin 4.4 3.2-4.5 GM/DL My Orders Orders - VERONICA GONZALEZ DO Ua Culture If Indicated (06/11/18 09:04) Cbc With Automated Diff (06/11/18 09:14) Comprehensive Metabolic Panel (06/11/18 09:14) Iv Heplock-Insert (Order) (06/11/18 09:14) Procalcitonin (Pct) (06/11/18 09:14) Blood Culture (06/11/18 09:14) Lactic Acid Analyzer (06/11/18 09:14) Foot 3 View Left (06/11/18 09:22) Clindamycin 600 Mg/50 Ml Ivpb (Cleocin P (06/11/18 10:30) Ekg Tracing (06/11/18 10:41) Insulin Aspart (Novolog) (Novolog (Charg (06/11/18 10:45) D50w (Emergency) Syringe (Dextrose 50% 5 (06/11/18 10:45) Ns Iv 1000 Ml (Sodium Chloride 0.9%) (06/11/18 10:45) Sodium Polystyrene Sulfonate (Kayexalate (06/11/18 10:45) Medications Given in ED Current Medications Medications Dose Ordered Sig/Jaleel Route Start Time Stop Time Status Last Admin Dose Admin Clindamycin Phosphate/Dextrose 50 ml @ 100 mls/hr ONCE ONCE IV 06/11/18 10:30 06/11/18 10:59 DC 06/11/18 10:42 100 MLS/HR Vital Signs/I&O 06/11/18 08:52 Temp 98.1 Pulse 74 Resp 18 B/P (MAP) 141/67 (91) Pulse Ox 94 O2 Delivery Room Air Progress Progress Note : Time: 10:40 Progress Note @1040 - Potassium noted to be 6.6. EKG ordered. @1115 - Patient updated on lab and imaging results. She agrees with the plan to be admitted. Hospitalist kyle and Dr. Machado accepts the admission. Initial ECG Impression Date: June 11, 2018 Initial ECG Impression Time: 10:53 Initial ECG Rate: 67 Initial ECG Rhythm: Normal Sinus Initial ECG Intervals: Normal Comment Normal sinus rhythm, rate of 67, left axis deviation present, no acute ischemic findings noted, no STEMI, reviewed and interpreted by myself Departure Communication (Admissions) Time/Spoke to Admitting Phy: 11:15 @1115 - Dr. Machado accepts the admission at this time. Pt will require treatment of hyperkalemia, close monitoring, and continued antibiotics for her foot wound as well as likely podiatry consult. Impression Primary Impression: Hyperkalemia Additional Impression: Diabetic infection of left foot Disposition: 09 ADMITTED INPATIENT Condition: Stable Admissions Decision to Admit Reason: Admit from ER (General) Decision to Admit/Date: June 11, 2018 Time/Decision to Admit Time: 11:15 Departure-Patient Inst. Referrals: ERENDIRA KEANE MD (PCP/Family) Primary Care Physician VERONICA GONZALEZ DO June 11, 2018 09:28
--- NOTE | 2018-06-11 09:50 | Diagnostic Imaging Report ---
EXAM: FOOT 3 VIEW LEFT INDICATION: Growth on left foot. COMPARISON: Left foot radiographs 11/04/2010. FINDINGS: Demineralization. No fracture or malalignment. Plantar calcaneal spur. Atherosclerotic calcifications. Soft tissue density overlying the left fifth metatarsal base has no underlying osseous component. No radiopaque foreign bodies. IMPRESSION: Acute osseous findings in the left foot. Dictated by: Dictated on workstation # [id number]
[2018-06-11 10:16] LABS: BASOPHILS % (AUTO) 1 % (0-10); EOSINOPHILS % (AUTO) 4 % (0-10); HEMATOCRIT 40 % (35-52); HEMOGLOBIN 13.4 G/DL (11.5-16.0); LYMPHOCYTES % (AUTO) 24 % (12-44); MEAN CORPUSCULAR HEMOGLOBIN 33 PG (25-34); MEAN CORPUSCULAR HGB CONC 34 G/DL (32-36); MEAN CORPUSCULAR VOLUME 99 FL (80-99); MEAN PLATELET VOLUME 9.7 FL (7.4-10.4); MONOCYTES % (AUTO) 14 % (0-12); NEUTROPHILS # (AUTO) 2.3 X 10^3 (1.8-7.8); NEUTROPHILS % (AUTO) 55 % (42-75); PLATELET COUNT 171 10^3/uL (130-400); RED CELL DISTRIBUTION WIDTH 13.2 % (10.0-14.5); WHITE BLOOD COUNT 4.3 10^3/uL (4.3-11.0)
[2018-06-11 10:17] LABS: BASOPHILS # (AUTO) 0.1 10^3/uL (0.0-0.1); EOSINOPHILS # (AUTO) 0.2 10^3/uL (0.0-0.3); MONOCYTES # (AUTO) 0.6 X 10^3 (0.0-1.0)
[2018-06-11] MEDS ORDERED: CLINDAMYCIN 600 MG/50 ML IVPB 50 ML IV ONE (10:30)
[2018-06-11 10:39] LABS: SODIUM 138 MMOL/L (135-145)
[2018-06-11 10:40] LABS: ALANINE AMINOTRANSFERASE 40 U/L (0-55); ALBUMIN 4.4 GM/DL (3.2-4.5); BILIRUBIN,TOTAL 0.3 MG/DL (0.1-1.0); BUN/CREATININE RATIO 52; CALCIUM 9.6 MG/DL (8.5-10.1); CARBON DIOXIDE 23 MMOL/L (21-32); CHLORIDE 100 MMOL/L (98-107); CREATININE SERUM 0.86 MG/DL (0.60-1.30); GFR ESTIMATED > 60; GLUCOSE 98 MG/DL (70-105); POTASSIUM 6.6 MMOL/L (3.6-5.0); TOTAL PROTEIN 7.9 GM/DL (6.4-8.2)
[2018-06-11] MEDS ORDERED: DEXTROSE 50% 50 ML (IMS) SYR IV ONE (10:45)
[2018-06-11] MEDS ORDERED: inSUlin ASPART (NovoLOG) 1 UNIT/0.01 ML (CHARGE PER UNIT) IV ONE (10:45)
[2018-06-11] MEDS ORDERED: NS IV 1000 ML 500 ML IV SCH (10:45)
[2018-06-11] MEDS ORDERED: SOD POLYSTERENE 15 GM/60 ML (KAYEXALATE) UNIT DOSE PO ONE (10:45)
[2018-06-11 11:00] LABS: ALKALINE PHOSPHATASE 82 U/L (40-136)
[2018-06-11] MEDS ORDERED: NS IV 500 ML 500 ML ONE (11:25)
--- NOTE | 2018-06-11 11:38 | NUR ---
CONTACTED CLOUD ENGAGEMENT PARTNER FOR A ROOM.
--- OUTSIDE RECORDS SUMMARY | 2018-06-11 12:00 | XMS REPORT | Clinical Summary ---
Author Author [facility] Organization [facility] Address Unknown Phone Unavailable Care Team Providers Care Website Optimization Strategist Name Role Phone Parvez Rosario MD Unavailable No Pcp, Na PCP Unavailable Source Comments Some departments are not documenting in the electronic medical record. If you do not see the information that you expected, contact Release of Information in the Health Information Management department at [phone] for further assistance in locating additional records.[facility] Allergies No Known Allergies Medications End [...] No Pcp, Na Appointment Question 05/29/2018 Telephone [facility] Evangelist Rdz DO 05/26/2018 Emergency Emergency Medicine [...] 1.010 1.003 - 1.035 [facility] [place] POC Urine PH POC 5.5 5.0 - [...] City/State/Zipcode Phone Number [facility] [address] [place] [address] * US DOPPLER VENOUS W EXTRM LEFT [...] on 05/27/2018 6:57 AM. Performing Organization Address [facility]/Zipcode Phone Number RAD RESULTS * SED RATE (05/26/2018 4:04 PM CDT) Pathologist [facility] Sed Rate -ESR 83 (H) 0 - 30 MM/HR MAIN LAB Specimen Blood Performing Organization Address City/[facility]/Zipcode Phone Number MAIN LAB [address] [place] [address] * CBC AND DIFF (05/26/2018 4:04 PM [...] Basophil Count Specimen Blood Performing Organization Address City/[facility] Number [facility] [address] [place] [address] * C REACTIVE PROTEIN (CRP) (05/26/2018 4:04 PM CDT) Pathologist [facility] C-Reactive 2.28 (H) <1.0 MG/DL [facility] Protein Specimen Blood Performing Organization Address City/[facility] Phone Number MAIN LAB [address] [place] [address] * COMPREHENSIVE METABOLIC PANEL (05/26/2018 4:04 PM [...] (L) >60 mL/min [facility] Comment: [place] The eGFR is not validated for use in drug dosing adjustments.Continue to use estimated creatinine clearance per dosing reference text.Please contact the Clinical Pharmacist for questions. eGFR 59 (L) >60 mL/min [facility] [place] Comment: The eGFR is not validated for use in drug dosing adjustments.Continue to use estimated creatinine clearance per dosing reference text.Please contact the Clinical Pharmacist for questions. Specimen Blood Performing Organization Address City/State/Zipcode Phone Number [facility] [address] [place] [address] * ECG-SCAN (05/26/2018 12:00 AM CDT) Narrative [...] on file. For more information, please contact: [facility] [address] [place] [address]
--- OUTSIDE RECORDS SUMMARY | 2018-06-11 12:00 | XMS REPORT | Encounter Summary ---
Author Author [facility] Organization [facility] Address Unknown Phone Unavailable Care Team Providers Care Appliquer Name Role Phone Parvez Rosario MD Unavailable No Pcp, Na PCP Unavailable Reason for Visit * Reason Comments Wound Check Diabetic wound to L foot Encounter Details Care Team Description Date Type Department Evangelist Rdz DO [address] [facility] [place] [address] 05/26/2018 Emergency [facility] [address] [place] [address] Social History Date Tobacco Use [...] sent through Care Everywhere.* Skin Infection, Cellulitis (AMHARIC) documented in this encounter Medications at Time [...] Turbidity POC CLEAR CLEAR-CLEAR Final Urine Specific [place] POC 1.010 1.003 - 1.035 Final Urine [...] (Results Pending) EKG: Sinus rhythm, rate 70, MO 164, QRS 80, QTc 398, no STEMI. [...] Discharge Dpt [facility], Family Medicine [id number] [facility] [id number] Schedule an appointment as soon as possible [...] 1.010 1.003 - 1.035 [facility] [place] POC Urine PH POC 5.5 5.0 - [...] City/State/Zipcode Phone Number [facility] [address] [place] [address] * US DOPPLER VENOUS W EXTRM LEFT [...] 49 (L) >60 mL/min MAIN LAB Comment: [place] The eGFR is not validated for use in drug dosing adjustments.Continue to use estimated creatinine clearance per dosing reference text.Please contact the Clinical Pharmacist for questions. eGFR 59 (L) >60 mL/min [facility] [place] Comment: The eGFR is not validated for use in drug dosing adjustments.Continue to use estimated creatinine clearance per dosing reference text.Please contact the Clinical Pharmacist for questions. Specimen Blood Performing Organization Address City/[facility]/Zipcode Phone Number [facility] [address] [place] [address] * SED RATE (05/26/2018 4:04 PM CDT) Sed Rate -ESR 83 (H) 0 - 30 MM/HR [facility] Specimen Blood Performing Organization Address City/[facility]/Zipcode Phone Number [facility] [address] [place] [address] * C REACTIVE PROTEIN (CRP) (05/26/2018 4:04 PM CDT) C-Reactive 2.28 (H) <1.0 MG/DL [facility] Protein Specimen Blood Performing Organization Address City/[facility]/Zipcode Phone Number [facility] [address] [place] [phone] * CBC AND DIFF (05/26/2018 4:04 PM CDT) White Blood 6.8 4.5 - 11.0 K/UL [facility] Cells RBC 4.10 4.0 - 5.0 [...] Address City/State/Zipcode Phone Number [facility] [address] [place] [address] * ECG-SCAN (05/26/2018 12:00 AM CDT) Narrative [...]
--- OUTSIDE RECORDS SUMMARY | 2018-06-11 12:00 | XMS REPORT | Encounter Summary ---
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 * Telephone Encounter - Radah Elliott - 05/29/2018 12:49 PM CDT Ella requesting a call back in regards to an ED f/u and how to care for callulitis. [facility] 1245 *Pt. has not established care with [facility] yet. * Telephone Encounter - Radha Elliott - 05/29/2018 9:52 AM CDT Jazzy wallace pt. was seen in the ED on Tuesday and they informed her to schedule an appointment with [facility]. pt. has a provider in [place] and was wondering if that is okay to do instead. LVM 0944 documented in this encounter Plan of Treatment Not on filedocumented as of this encounter Visit Diagnoses Not on filedocumented in this encounter
--- OUTSIDE RECORDS SUMMARY | 2018-06-11 12:03 | XMS REPORT | Continuity of Care Document ---
Author Organization Unknown Address Unknown Allergies Active Description Code Type Severity Reaction Onset Reported/Identified Relationship to Patient Clinical Status Yes No Known Drug Allergies [id number] Drug Allergy Unknown N/A 01/23/2017 Medications There [...] RANDY, BOBAN N Ot V67.1 12/30/2014 RANDY, REGINALODAN N Ot 356.9 12/30/2014 RANDY, REGINALDOAN N [...] 12/02/2015 DANNY PADILLA N Ot Z79.899 OTHER [facility] (CURRENT) DRUG THERAPY 12/02/2015 DANNY PADILLA N [...] 12/08/2015 DANNY PADILLA N Ot Z79.899 OTHER DOPE SPRAYER (CURRENT) DRUG THERAPY 12/08/2015 RANDYDANNY SHUKLA N [...] 12/23/2015 DANNY PADILLA N Ot Z79.899 OTHER DOPE SPRAYER (CURRENT) DRUG THERAPY 12/23/2015 DANNY PADILLA N [...] 12/31/2015 DANNY PADILLA N Ot Z79.899 OTHER DOPE SPRAYER (CURRENT) DRUG THERAPY 12/31/2015 RANDYDANNY SHUKLA N [...] FO 12/10/2016 DANNY PADILLA Ot Z79.899 OTHER DOPE SPRAYER (CURRENT) DRUG THERAPY 12/10/2016 DANNY PADILLA [place] [...] 01/23/2017 DANNY PADILLA N Ot Z79.899 OTHER [facility] (CURRENT) DRUG THERAPY 01/23/2017 DANNY PADILLA N Ot Z85.3 PERSONAL HISTORY OF MALIGNANT NEOPLASM O 01/23/2017 DANNY PADILLA N Ot Z92.3 PERSONAL HISTORY OF IRRADIATION 01/23/2017 DANYN PADILLA N Ot E08.40 DIABETES DUE TO UNDERLYING CONDITION W D 01/23/2017 DANNY PADILLA N Ot G62.9 POLYNEUROPATHY, UNSPECIFIED 01/23/2017 DANNY PADILLA N Ot Z08 ENCNTR FOR FOLLOW-UP EXAM AFTER TRTMT FO 01/23/2017 DANNY PADILLA N Ot Z79.899 OTHER DOPE SPRAYER (CURRENT) DRUG THERAPY 01/23/2017 DANNY PADILLA N [...] 01/23/2017 DANNY PADILLA N Ot Z79.899 OTHER DOPE SPRAYER (CURRENT) DRUG THERAPY 01/23/2017 DANNY PADILLA N [...] EPISTAXIS 01/24/2017 MARYANN PENG MD Ot Z79.82 DOPE SPRAYER (CURRENT) USE OF ASPIRIN 01/26/2017 MARYANN PENG [...] EPISTAXIS 01/26/2017 MARYANN PENG MD Ot Z79.82 [facility] (CURRENT) USE OF ASPIRIN 02/02/2017 DANNY PADILLA Ot E08.40 DIABETES DUE TO UNDERLYING CONDITION W D 02/02/2017 DANNY PADILLA Ot G62.9 POLYNEUROPATHY, UNSPECIFIED 02/02/2017 DANNY PADILLA Ot Z08 ENCNTR FOR FOLLOW-UP EXAM AFTER TRTMT FO 02/02/2017 DANNY PADILLA Ot Z79.899 OTHER [facility] (CURRENT) DRUG THERAPY 02/02/2017 DANNY PAIDLLA Ot Z85.3 PERSONAL HISTORY OF MALIGNANT NEOPLASM O 02/02/2017 DANNY PADILLA Ot Z92.3 PERSONAL HISTORY OF IRRADIATION 02/04/2017 RANDY, BOBAN N Ot E08.40 DIABETES DUE TO UNDERLYING CONDITION W D 02/04/2017 DANNY PADILLA N Ot G62.9 POLYNEUROPATHY, UNSPECIFIED 02/04/2017 RANDY DANNY N Ot Z08 ENCNTR FOR FOLLOW-UP EXAM AFTER TRTMT FO 02/04/2017 RANDY REGINALDOKALLI N Ot Z79.899 OTHER DOPE SPRAYER (CURRENT) DRUG THERAPY 02/04/2017 RANDY DANNY N [...] 03/09/2017 RANDY DANNY N Ot Z79.899 OTHER DOPE SPRAYER (CURRENT) DRUG THERAPY 03/09/2017 RANDY DANNY N [...] 03/10/2017 RANDY DANNY N Ot Z79.899 OTHER DOPE SPRAYER (CURRENT) DRUG THERAPY 03/10/2017 RANDY DANNY N [...] V58.69 OTH MED,LT,CURRENT USE 03/07/2018 RANDY REGINALDOKALLI [place] Ot V67.1 RADIOTHERAPY FOLLOW-UP 03/07/2018 RANDY REGINALDOKALLI [place] Ot E08.40 DIABETES DUE TO UNDERLYING CONDITION W D 03/07/2018 RANDY DANNY Mariee Ot G62.9 POLYNEUROPATHY, UNSPECIFIED 03/07/2018 RANDY DANNY N Ot Z08 ENCNTR FOR FOLLOW-UP EXAM AFTER TRTMT FO 03/07/2018 REGINALDO PADILLAKALLI N Ot Z79.899 OTHER DOPE SPRAYER (CURRENT) DRUG THERAPY 03/07/2018 RANDY DANNY N [...] 03/07/2018 RANDY REGINALDOKALLI N Ot Z79.899 OTHER DOPE SPRAYER (CURRENT) DRUG THERAPY 03/07/2018 RANDY DANNY N [...] 03/07/2018 DANNY PADILLA [place] Ot Z79.899 OTHER DOPE SPRAYER (CURRENT) DRUG THERAPY 03/07/2018 DANNY PADILLA [place] [...] 03/08/2018 DANNY PADILLA [place] Ot Z79.899 OTHER DOPE SPRAYER (CURRENT) DRUG THERAPY 03/08/2018 RANDY, DANNY Mariee Ot Z85.3 PERSONAL HISTORY OF MALIGNANT NEOPLASM O 03/08/2018 DANNY PADILLA N Ot Z92.3 PERSONAL HISTORY OF IRRADIATION 03/08/2018 DANNY PADILLA Ot E08.40 DIABETES DUE TO UNDERLYING CONDITION W D 03/08/2018 DANNY PADILLA Ot G62.9 POLYNEUROPATHY, UNSPECIFIED 03/08/2018 DANNY PADILLA Ot Z08 ENCNTR FOR FOLLOW-UP EXAM AFTER TRTMT FO 03/08/2018 DANNY PADILLA Ot Z79.899 OTHER DOPE SPRAYER (CURRENT) DRUG THERAPY 03/08/2018 DANNY PADILLA N Ot Z85.3 PERSONAL HISTORY OF MALIGNANT NEOPLASM O 03/08/2018 DANNY PADILLA N Ot Z92.3 PERSONAL HISTORY OF IRRADIATION 03/08/2018 DANNY PADILLA Ot E08.40 DIABETES DUE TO UNDERLYING CONDITION W D 03/08/2018 DANNY PADILLA Ot G62.9 POLYNEUROPATHY, UNSPECIFIED 03/08/2018 DANNY PADILLA N Ot Z08 ENCNTR FOR FOLLOW-UP EXAM AFTER TRTMT FO 03/08/2018 DANNY PADILLA Ot Z79.899 OTHER [facility] (CURRENT) DRUG THERAPY 03/08/2018 DANNY PADILLA N [...] PAIN 05/07/2018 RON LOPEZ MD, Ot Z79.4 DOPE SPRAYER (CURRENT) USE OF INSULIN 05/07/2018 RON LOPEZ MD Ot Z79.51 [facility] (CURRENT) USE OF INHALED STERO 05/07/2018 RON LOPEZ MD, Ot Z79.82 [facility] (CURRENT) USE OF ASPIRIN 05/07/2018 RON LOPEZ [...] MD, Ot E78.00 PURE HYPERCHOLESTEROLEMIA, UNSPECIFIED 05/11/2018 ORN LOPEZ MD, Ot F41.9 ANXIETY DISORDER, UNSPECIFIED [...] TRACT INFECTION, SITE NOT SPECIF 05/11/2018 RON OLPEZ MD, Ot N63.10 UNSPECIFIED LUMP IN THE RIGHT BREAST, UN 05/11/2018 RON LOPEZ MD, Ot R10.31 RIGHT LOWER QUADRANT PAIN 05/11/2018 RON LOPEZ MD, Ot Z79.4 [facility] (CURRENT) USE OF INSULIN 05/11/2018 RON LOPEZ MD, Ot Z79.51 [facility] (CURRENT) USE OF INHALED STERO 05/11/2018 RON LOPEZ MD, Ot Z79.82 [facility] (CURRENT) USE OF ASPIRIN 05/11/2018 RON LOPEZ [...] culture - 05/07/18 20:21 Bacterial urine culture [id number] NRG COLONY COUNT >100,000/ML NRG FTX;REPORTABLE SENSITIVITY [...] Status Pt. Type Provider Facility Loc./Unit Complaint [id number] 08/25/2017 14:55:02 ACT Unknown Ruiz CARRILLO, Carlos Gamez [id number] 06/02/2018 11:00:00 06/02/2018 23:59:59 CLS Outpatient ERENDIRA KEANE [facility] [id number] 05/12/2018 13:33:00 05/12/2018 23:59:59 CLS Outpatient ERENDIRA KEANE MD [facility] LAB FS E875 [id number] 05/07/2018 19:21:00 05/07/2018 23:20:00 DIS Emergency JESSICA CARRILLO, RON [place] [facility] ER FS RT SIDE PAIN [id number] 03/07/2018 23:02:00 03/10/2018 13:30:00 DIS Inpatient BENJAMÍN BARROW MD [facility] 4TH SMALL BOWEL ILEUS [id number] 03/10/2017 00:13:00 03/10/2017 23:59:59 CLS Preadmit DANNY PADILLA [facility] ONC [id number] 12/09/2016 12:14:00 03/09/2017 00:01:00 DIS Outpatient DANNY PADILLA [facility] ONC [id number] 01/23/2017 07:06:00 01/24/2017 09:35:00 DIS Outpatient MARYANN PENG MD [facility] SDC NOSE BLEED [id number] 12/02/2015 10:42:00 12/02/2015 23:59:59 CLS Outpatient DANNY PADILLA [place] [facility] FS [id number] 11/26/2014 11:00:00 11/26/2014 23:59:59 CLS Outpatient DANNY PADILLA [place] [facility] FS [id number] 11/20/2013 10:16:00 11/20/2013 23:59:59 CLS Outpatient DANNY PADILLA [place] [facility] FS [id number] 11/28/2012 12:59:00 11/28/2012 23:59:59 CLS Outpatient DANNY PADILLA [place] [facility] FS [id number] 11/30/2011 13:04:00 Document Registration [id number] 11/03/2010 12:51:00 Document Registration [id number] 11/04/2009 13:41:00 Document Registration
[2018-06-11 13:14] LABS: BILIRUBIN,URINE NEGATIVE (NEGATIVE); CLARITY,URINE CLEAR; COLOR,URINE YELLOW; GLUCOSE, URINE (UA) NEGATIVE (NEGATIVE); KETONES,URINE NEGATIVE (NEGATIVE); LEUKOCYTE ESTERASE ,URINE TRACE (NEGATIVE); NITRITE,URINE NEGATIVE (NEGATIVE); PROTEIN,URINE NEGATIVE (NEGATIVE); SQUAMOUS EPITHELIAL CELL,UR RARE /HPF; UROBILINOGEN,URINE 0.2 MG/DL (NORMAL); WBC,URINE RARE /HPF
[2018-06-11 13:46] VITALS: BP 145/63
--- NOTE | 2018-06-11 13:55 | NUR ---
JOSLYN GARCIA admitted to room 411-1, with an admitting diagnosis of LEFT FOOT WOUND AND HYPERKALEMIA, on 06/11/18 from [facility] via AMBULANCE, accompanied by AMBULANCE PERSONNEL. JOSLYN GARCIA introduced to surroundings, call light, bed controls, phone, TV, temperature control, lights, meal times, smoking policy, visitor policy, side rail policy, bathrooms and showers. JOSLYN GARCIA verbalizes understanding that [facility] is not responsible for the loss or damage to any personal effects or valuables that are kept in the patients posession during their hospitalization. The following Patient Care Plans were discussed with the PATIENT: Discharge Planning, PAIN, AND ELECTROLYTE IMBALANCE. JOSLYN GARCIA verbalizes understanding of Interdisciplinary Patient Education. Patient and/or family were informed about the Rapid Response Team and its purpose.
[2018-06-11] MEDS: NS IV 1000 ML 1,000 ML IV SCH (14:52)
--- NOTE | 2018-06-11 15:20 | NUR ---
DR. SAGE NOTIFIED FOR BLOOD SUGAR CHECKS AND PAIN MED ORDERS. NOTIFIED NO MEDS ORDERED BY ER PHYSICIAN. Addendum: 06/11/18 at 1522 by YOSHI PASCAL RN PATIENT DOES NOT KNOW HOME MEDS. STATES SHE HAS CAREGIVERS THAT SET MEDICATIONS UP FOR HER.
[2018-06-11 16:00] VITALS: BP 151/73
--- NOTE | 2018-06-11 16:14 | History & Physicial (CHS) ---
HPI History of Present Illness: 77-year-old female admitted to [facility] after being evaluated in [facility] for left foot wound. Patient is a poor historian and apparently she has been on antibiotics recently but she was unsure exactly which antibiotic she had been on. She is a known diabetic and apparently this wound is not healing very well at all. There was also a question whether she needed to have partial foot amputation. Source: patient Exam Limitations: clinical condition Date seen by provider: June 11, 2018 Time Seen by Provider: 16:15 Attending Physician Luis Sage MD PCP Vianey Nelson MD Consult Date of Admission June 11, 2018 at 11:54 Home Medications Home Medications Reviewed patient Home Medication Reconciliation performed by pharmacy medication reconciliations lead quality technician and/or nursing. Patients Allergies have been reviewed. Allergies Coded Allergies: No Known Drug Allergies (Unverified , 06/11/18) ESW-Vopsqm-Jokrne Hx Patient Social History Alcohol Use: Denies Use Recreational Drug Use: No Type Used: Cigarettes Recent Foreign Travel: No Contact w/other who traveled: No Recent Hopitalizations: No Recent Infectious Disease Expo: No Physical Abuse Screen: No Sexual Abuse: No Review of Systems (CHC) Constitutional: see HPI Reviewed Test Results Reviewed Test Results Lab Laboratory Tests Test 06/11/18 10:00 06/11/18 11:11 Range/Units White Blood Count 4.3 4.3-11.0 10^3/uL Red Blood Count 4.03 L 4.35-5.85 10^6/uL Hemoglobin 13.4 11.5-16.0 G/DL Hematocrit 40 35-52 % Mean Corpuscular Volume 99 80-99 FL Mean Corpuscular Hemoglobin 33 25-34 PG Mean Corpuscular Hemoglobin Concent 34 32-36 G/DL Red Cell Distribution Width 13.2 10.0-14.5 % Platelet Count 171 130-400 10^3/uL Mean Platelet Volume 9.7 7.4-10.4 FL Neutrophils (%) (Auto) 55 42-75 % Lymphocytes (%) (Auto) 24 12-44 % Monocytes (%) (Auto) 14 H 0-12 % Eosinophils (%) (Auto) 4 0-10 % Basophils (%) (Auto) 1 0-10 % Neutrophils # (Auto) 2.3 1.8-7.8 X 10^3 Lymphocytes # (Auto) 1.0 1.0-4.0 X 10^3 Monocytes # (Auto) 0.6 0.0-1.0 X 10^3 Eosinophils # (Auto) 0.2 0.0-0.3 10^3/uL Basophils # (Auto) 0.1 0.0-0.1 10^3/uL Sodium Level 138 135-145 MMOL/L Potassium Level 6.6 *H 3.6-5.0 MMOL/L Chloride Level 100 98-107 MMOL/L Carbon Dioxide Level 23 21-32 MMOL/L Anion Gap 15 H 5-14 MMOL/L Blood Urea Nitrogen 45 H 7-18 MG/DL Creatinine 0.86 0.60-1.30 MG/DL Estimat Glomerular Filtration Rate > 60 BUN/Creatinine Ratio 52 Glucose Level 98 70-105 MG/DL Lactic Acid Level 1.08 0.50-2.00 MMOL/L Calcium Level 9.6 8.5-10.1 MG/DL Corrected Calcium 9.3 8.5-10.1 MG/DL Total Bilirubin 0.3 0.1-1.0 MG/DL Aspartate Amino Transf (AST/SGOT) 52 H 5-34 U/L Alanine Aminotransferase (ALT/SGPT) 40 0-55 U/L Alkaline Phosphatase 82 40-136 U/L Total Protein 7.9 6.4-8.2 GM/DL Albumin 4.4 3.2-4.5 GM/DL Procalcitonin 0.04 <0.10 NG/ML Urine Color YELLOW Urine Clarity CLEAR Urine pH 6.0 5-9 Urine Specific [place] <1.005 1.016-1.022 Urine Protein NEGATIVE NEGATIVE Urine Glucose (UA) NEGATIVE NEGATIVE Urine Ketones NEGATIVE NEGATIVE Urine Nitrite NEGATIVE NEGATIVE Urine Bilirubin NEGATIVE NEGATIVE Urine Urobilinogen 0.2 NORMAL MG/DL Urine Leukocyte Esterase TRACE NEGATIVE Urine RBC (Auto) NEGATIVE NEGATIVE Urine RBC NONE /HPF Urine WBC RARE /HPF Urine Squamous Epithelial Cells RARE /HPF Urine Crystals NONE /LPF Urine Bacteria NONE /HPF Urine Casts NONE /LPF Urine Mucus NEGATIVE /LPF Urine Culture Indicated NO Radiology [facility]. [place], [place] NAME: JOSLYN GARCIA [facility] REC#: [id number] PT STATUS: REG ER : 1940 PHYSICIAN: VERONICA GONZALEZ DO ADMIT DATE: 06/11/18/ER FS Draft Date of Exam:06/11/18 FOOT 3 VIEW LEFT EXAM: FOOT 3 VIEW LEFT INDICATION: Growth on left foot. COMPARISON: Left foot radiographs 11/04/2010. FINDINGS: Demineralization. No fracture or malalignment. Plantar calcaneal spur. Atherosclerotic calcifications. Soft tissue density overlying the left fifth metatarsal base has no underlying osseous component. No radiopaque foreign bodies. IMPRESSION: Acute osseous findings in the left foot. Dictated on workstation # [id number] Dict: 06/[birth year]/1843 Trans: 06/11/1850 CVB [id number] Interpreted by: COLBY HAMLIN MD Electronically signed by: Physical Exam-([facility]) Physical Exam Vital Signs VS - Last 72 Hours, by Label 06/11/18 06/11/18 06/11/18 06/11/18 08:52 13:00 13:46 13:46 Temp 98.1 98.3 98.0 98.0 Pulse 74 85 85 85 Resp 18 21 20 20 B/P (MAP) 141/67 (91) 122/58 (79) 145/63 (90) 145/63 Pulse Ox 94 94 94 94 O2 Delivery Room Air Room Air Room Air Room Air 06/11/18 06/11/18 06/11/18 14:26 15:46 16:00 Temp 96.9 Pulse 85 90 Resp 18 B/P (MAP) 151/73 (99) Pulse Ox 96 O2 Delivery Room Air Room Air Capillary Refill : Less Than 3 SecondsLess Than 3 Seconds General Appearance: no apparent distress Eyes: Bilateral Eye Normal Inspection HEENT: pharynx normal Neck: supple Respiratory: lungs clear Cardiovascular: regular rate, rhythm Gastrointestinal: soft Rectal: deferred Back: normal inspection Extremities: no pedal edema, no calf tenderness, other (area of swelling and brown discoloration at lateral aspect of L foot. Minimal surrounding erythema) Neurologic/Psychiatric: alert, oriented x 3 Skin: normal color Assessment/Plan Assessment/Plan Admission Dx 1. Diabetic foot wound 2. Hyperkalemia Admission Status: Inpatient Order (span 2 midnights) Reason for Inpatient Admission: She is admitted for further IV antibiotics and consultation with wound care. Assessment & Plan 1. Diabetic foot wound -Patient admitted for further IV antibiotics -Consultation with wound care 2. Hyperkalemia -Recheck potassium Clinical Quality Measures DVT/VTE Risk/Contraindication: Risk Factor Score Per Nursin RFS Level Per Nursing on Admit: 4+=Very High LUIS SAGE MD June 11, 2018 16:14
[2018-06-11] MEDS: inSUlin ASPART (NovoLOG) 1 UNIT/0.01 ML (CHARGE PER UNIT) SC SCH ×2 (16:49→22:17)
[2018-06-11] MEDS: CLINDAMYCIN 600 MG/50 ML IVPB 50 ML IV SCH ×2 (16:56→22:45)
--- NOTE | 2018-06-11 19:55 | NUR ---
PT YELLING AT THE TOP OF HER LUNGS. WHEN I ASKED THE PT WHAT WAS WRONG PT SAYS HER LOWER LEGS HURT. SPOKE WITH DR. SAGE AND INFORMED HIM OF PTS CONDITION. TELEPHONE ORDERS RECEIVED FOR GABAPENTIN 600MG PO QID DON AND ATIVAN 0.5MG PO Q6HRS PRN FOR ANXIETY. WILL CARRY OUT ORDERS AND CONTINUE TO MONITOR PT.
[2018-06-11 20:00] VITALS: BP 163/72
[2018-06-11] MEDS: GABAPENTIN 600 MG (NEURONTIN) TAB PO SCH (20:47)
[2018-06-11] MEDS: LORazepam 0.5 MG (ATIVAN) TABLET PO PRN (22:45)
[2018-06-12 00:20] VITALS: BP 129/68
[2018-06-12 04:51] VITALS: BP 156/73
[2018-06-12] MEDS: LORazepam 0.5 MG (ATIVAN) TABLET PO PRN (05:37)
[2018-06-12] MEDS: NS IV 1000 ML 1,000 ML IV SCH ×3 (05:38→21:06)
[2018-06-12] MEDS: inSUlin ASPART (NovoLOG) 1 UNIT/0.01 ML (CHARGE PER UNIT) SC SCH ×4 (05:39→20:56)
[2018-06-12 06:35] LABS: BUN/CREATININE RATIO 40; CALCIUM 9.7 MG/DL (8.5-10.1); CARBON DIOXIDE 21 MMOL/L (21-32); CHLORIDE 107 MMOL/L (98-107); CREATININE SERUM 0.81 MG/DL (0.60-1.30); GFR ESTIMATED > 60; GLUCOSE 103 MG/DL (70-105); POTASSIUM 4.5 MMOL/L (3.6-5.0); SODIUM 139 MMOL/L (135-145)
[2018-06-12] MEDS: CLINDAMYCIN 600 MG/50 ML IVPB 50 ML IV SCH ×3 (08:29→23:56)
[2018-06-12] MEDS: GABAPENTIN 600 MG (NEURONTIN) TAB PO SCH ×4 (08:30→20:55)
--- NOTE | 2018-06-12 10:09 | Progress Note-Hospitalist ---
Subjective HPI/CC On Admission Date Seen by Provider: June 12, 2018 Time Seen by Provider: 09:30 Subjective/Events-last exam Pt is mentally challenged so unable to provide any details to me. Wants to go home. On Clindamycin IV for left foot wound. It appears that the wound is walled off on a callus so will consult Dr. Zafar and Dr. Hutchins because there was a thought about amputation. Checked meds and labs. Can't really provide me with any details. Needs to go to the bathroom. Denies any other significant problems. Review of Systems Musculoskeletal: foot pain Focused Exam Lactate Level 06/11/18 10:00: Lactic Acid Level 1.08 Objective Exam Vital Signs Vital Signs Date Time Temp Pulse Resp B/P (MAP) Pulse Ox O2 Delivery O2 Flow Rate FiO2 06/12/18 20:10 97.8 64 18 142/88 (106) 95 Room Air Capillary Refill : Less Than 3 SecondsLess Than 3 Seconds General Appearance: No Apparent Distress, WD/WN; No Chronically ill Respiratory: Chest Non Tender, Lungs Clear, Normal Breath Sounds, No Accessory Muscle Use, No Respiratory Distress Cardiovascular: Regular Rate, Rhythm, No Edema, No Gallop, No JVD, No Murmur, Normal Peripheral Pulses Extremity: Other (left foot with ulceration in callous with drainage) Neurologic/Psychiatric: Alert, No Motor/Sensory Deficits, Normal Mood/Affect, Disoriented Skin: Normal Color, Warm/Dry Results/Procedures Lab Laboratory Tests 06/12/18 05:35 Patient resulted labs reviewed. Assessment/Plan Assessment and Plan Assess & Plan/Chief Complaint Assessment: Chronic left foot ulcer DM Mentally challenged HTN Hyperkalemia Gout GERD Plan: Appreciate Dr Hutchins Monitor labs IV abx Diagnosis/Problems Diagnosis/Problems (1) Diabetic infection of left foot Status: Acute (2) Hyperkalemia Status: Acute (3) Non-insulin dependent type 2 diabetes mellitus Status: Chronic Clinical Quality Measures DVT/VTE Risk/Contraindication: Risk Factor Score Per Nursin RFS Level Per Nursing on Admit: 4+=Very High BRIANNA HERNANDEZ DO June 12, 2018 10:09
--- NOTE | 2018-06-12 11:42 | Consultation (Surgery) ---
History of Present Illness History of Present Illness Patient Consulted On(danisha/time) 06/12/18 11:37 Time Seen by Provider: 11:21 History of Present Illness Surgery is asked to consult regarding diabetic foot wound; surgical debridement and assessment. HPI per ED: The patient is a 77-year-old female brought in by EMS for evaluation of a left foot wound. The patient is a very poor historian and so the history is extremely limited. She tells me that she was recently at for the infection and was on antibiotics. She states that at some point somebody had discussed surgical removal with her. However, she is unsure if this is actually scheduled at this point. She is unable to tell me how long the lesion has been on her left foot, for example she cannot tell me if it has been there for 2 months or 2 years. Apparently family spoke with EMS and was concerned about infection to left foot that appear to be worsening. No family is here at this time to provide additional history. Also the patient complained of some hematuria. On arrival the patient appears comfortable and is in no distress. Timing/Duration: other (unknown) Severity: mild, moderate Location: feet (left lateral foot) Modifying Factors: improves with other (no modifying or alleviating factors) Associated Symptoms: other (left foot pain) When I saw the pt today she states she is scheduled June 20 to see "foot surgeon" in [place]. She denies pain in the left foot, but stated it was swollen and red. Nurse stated she was admitted for cellulitis. Allergies and Home Medications Allergies Coded Allergies: No Known Drug Allergies (Unverified , 06/11/18) Home Medications Acetaminophen 500 Mg Tablet, 500-1,000 MG PO Q6H PRN for PAIN-MILD, (Reported) Allopurinol 100 Mg Tablet, 100 MG PO DAILY, (Reported) Alprazolam 0.5 Mg Tablet, 0.5 MG PO BID, (Reported) Aspirin 81 Mg Tablet.dr, 81 MG PO HS, (Reported) Azithromycin 250 Mg Tablet, 250 MG PO DAILY Prescribed by: KELLY PRINCE on 03/10/18 09 Calcium Carbonate 600 Mg Tablet, 600 MG PO DAILY, (Reported) Cephalexin 500 Mg Capsule, 500 MG PO BID Prescribed by: KELLY PRINCE on 03/10/18 09 Fluticasone Propionate 16 Gm [place].susp, 1 SPRAY NS DAILY PRN for ALLERGIES, ( Reported) Gabapentin 600 Mg Tablet, 600 MG PO QID, (Reported) Gemfibrozil 600 Mg Tablet, 600 MG PO BID, (Reported) Glipizide 5 Mg Tablet, 5 MG PO BID, (Reported) Mirabegron 25 Mg Tab.er.24h, 25 MG PO DAILY, (Reported) Montelukast Sodium 10 Mg Tablet, 10 MG PO HS, (Reported) Multivitamin 1 Each Tablet, 1 TAB PO DAILY, (Reported) Nitrofurantoin Monohyd/M-Cryst 100 Mg Capsule, 1 TAB PO BID Prescribed by: RON LOPEZ on 05/07/18 1780 Omeprazole 20 Mg Capsule.dr, 20 MG PO DAILY, (Reported) Primidone 50 Mg Tablet, 50 MG PO BID, (Reported) Sertraline HCl 50 Mg Tablet, 50 MG PO DAILY, (Reported) Tramadol HCl 50 Mg Tablet, 25 MG PO BID, (Reported) TAKES 1/2 (50MG) TABLET Valsartan 160 Mg Tablet, 80 MG PO DAILY, (Reported) TAKES 1/2 (160MG) TABLET Patient Home Medication List Home Medication List Reviewed: Yes Past Uzzsouz-Jupqqu-Inyfbl Hx Patient Social History Alcohol Use: Denies Use Recreational Drug Use: No Type Used: Cigarettes Recent Foreign Travel: No Contact w/Someone Who Travel: No Recent Infectious Disease Expo: No Recent Hopitalizations: No Physical Abuse Screen: No Sexual Abuse: No Seasonal Allergies Seasonal Allergies: No Surgeries History of Surgeries: Yes (CATARACTS) Surgeries: Abdominal, Bowel Surgery, Breast, Gallbladder Respiratory History of Respiratory Disorde: Yes Respiratory Disorders: Sleep Apnea Cardiovascular History of Cardiac Disorders: Yes Cardiac Disorders: High Cholesterol, Hypertension 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) Neurological Disorders: Neuropathy Reproductive System Sexually Transmitted Disease: Yes (GONORRHEA) 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: 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 Genitourinary History of Genitourinary Disor: Yes (INCONTINENCE) Gastrointestinal History of Gastrointestinal Di: Yes Gastrointestinal Disorders: Gastrointestinal Bleed Musculoskeletal History of Musculoskeletal Dis: Yes (RESTLESS LEGS; GAIT DISTURBANCE) Musculoskeletal Disorders: Arthritis Endocrine History of Endocrine Disorders: Yes Endocrine Disorders: Diabetes, Non-Insulin dep HEENT History of HEENT Disorders: Yes (NOSEBLEEDS; PERTUSSIS; ) HEENT Disorders: Cataract Loss of Vision: Bilateral Hearing Impairment: Hard of Hearing, Bilateral Hearing Aide Cancer History of Cancer: Yes Cancer: Breast Psychosocial History of Psychiatric Problem: Yes Behavioral Health Disorders: Anxiety Integumentary History of Skin or Integumenta: Yes (CHICKEN POX, ULCER OF LEFT ANKLE) Blood Transfusions History of Blood Disorders: No Family Medical History Significant Family History: Heart Disease (Father), Diabetes (Grandmother), Hypertension (Mother), Other Conditions/Hx (Pt stated both parents had some type of colon problems) Review of Systems-General Constitutional: No chills, No diaphoresis; malaise, weakness EENTM: hearing loss; No epistaxis, No throat swelling Respiratory: No cough, No dyspnea on exertion, No hemoptysis Cardiovascular: No chest pain, No palpitations Gastrointestinal: No abdominal pain, No hematemesis Musculoskeletal: joint pain, joint swelling, muscle pain, muscle stiffness, muscle cramps Skin: lesions Psychiatric/Neurological: Anxiety; Denies Headache; Paresthesia; Denies Seizure Physical Exam-General Problems Physical Exam Vital Signs Vital Signs - First Documented 06/11/18 08:52 Temp 98.1 Pulse 74 Resp 18 B/P (MAP) 141/67 (91) Pulse Ox 94 O2 Delivery Room Air Capillary Refill : Less Than 3 SecondsLess Than 3 Seconds General Appearance: WD/WN, no apparent distress Eyes: Bilateral Eye PERRL, Bilateral Eye EOMI HEENT: pharynx normal; No scleral icterus (R), No scleral icterus (L), No other (pt is edentulous) Respiratory: chest non-tender, lungs clear, normal breath sounds, no respiratory distress, no accessory muscle use Cardiovascular: regular rate, rhythm, no murmur Gastrointestinal: normal bowel sounds, non tender, soft, no organomegaly, no pulsatile mass, other (obese) Extremities: no calf tenderness, normal capillary refill, other (on her left foot she has a 3-4 cm diameter growth, looks veruccal. 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, alert, normal mood/affect, oriented x 3 Skin: normal color, warm/dry Lymphatic: no adenopathy (neck, axilla or groin) Data Review Labs Laboratory Tests 06/11/18 16:48: Glucometer 131H 06/11/18 21:56: Glucometer 109 5/6/19 05:05: Glucometer 111H 06/12/18 05:35: Sodium Level 139, Potassium Level 4.5, Chloride Level 107, Carbon Dioxide Level 21, Anion Gap 11, Blood Urea Nitrogen 32H, Creatinine 0.81, Estimat Glomerular Filtration Rate > 60, BUN/Creatinine Ratio 40, Glucose Level 103, Calcium Level 9.7 Assessment/Plan Assessment/Plan Assessment/Plan Left foot growth DM with Neuropathy The mass on her left foot is chronic, does not appear necrotic. This can be taken care of as an outpt; she can keep her appt in [place] or I would be happy to see her in my clinic. Clinical Quality Measures DVT/VTE Risk/Contraindication: Risk Factor Score Per Nursin RFS Level Per Nursing on Admit: 4+=Very High JUANJOSE BISHOP DO June 12, 2018 11:42
[2018-06-12] MEDS ORDERED: PRIM50TA33 PO (13:32)
[2018-06-12] MEDS ORDERED: FLUT16SP22 NS (13:32)
--- NOTE | 2018-06-12 13:34 | NUR ---
UPDATED MED REC WITH MED LIST FAXED OVER FROM [facility] IN [place]. I ALSO LEFT THE FLONASE NEEDED THAT WAS NOT ON THE MED LIST DUE TO IT WAS JUST FILLED ACCORDING TO THE EXT MED HX.
[2018-06-12 15:47] VITALS: BP 136/94
[2018-06-12] MEDS ORDERED: ARTIFICAL TEARS 0.4 ML UNIT DOSE (REFRESH PLUS) ONE (16:17)
[2018-06-12] MEDS: glipiZIDE 5 MG (GLUCOTROL) TAB PO SCH (16:20)
[2018-06-12] MEDS ORDERED: GABAPENTIN 600 MG (NEURONTIN) TAB PO SCH (17:00)
--- NOTE | 2018-06-12 18:04 | Wound Care Assessment ---
Wound Care Assessment Date Seen by Provider: June 12, 2018 Time Seen by Provider: 17:45 Chief Complaint L foot lesion. HPI The patient is a 77 year old female with a neoplastic lesion of the L lateral foot, has been seen by General surgery, and biopsy is planned. Nothing to add from wound Care standpoint. Recreational Drug Use: No Alcohol Use: Denies Use Exam Vital Signs Date Time Temp Pulse Resp B/P (MAP) Pulse Ox O2 Delivery O2 Flow Rate FiO2 06/12/18 15:47 97.1 60 20 136/94 (108) 97 Room Air Capillary Refill : Less Than 3 SecondsLess Than 3 Seconds Results Laboratory Tests 06/11/18 21:56: Glucometer 109 06/12/18 05:05: Glucometer 111H 06/12/18 05:35: Sodium Level 139, Potassium Level 4.5, Chloride Level 107, Carbon Dioxide Level 21, Anion Gap 11, Blood Urea Nitrogen 32H, Creatinine 0.81, Estimat Glomerular Filtration Rate > 60, BUN/Creatinine Ratio 40, Glucose Level 103, Calcium Level 9.7 06/12/18 11:28: Glucometer 176H 06/12/18 15:50: Glucometer 135H Microbiology 06/11/18 Blood Culture - Preliminary, Resulted No growth Microbiology 06/11/18 Blood Culture - Preliminary, Resulted No growth 06/11/18 Blood Culture - Preliminary, Resulted No growth Assessment/Plan/Dx 1. Lesion L foot. Plan: As per surgical service. Will sign off. MARYANN WYNNE MD June 12, 2018 18:04
[2018-06-12 20:10] VITALS: BP 142/88
[2018-06-12] MEDS: PRIMIDONE 50 MG TAB (MYSOLINE) PO SCH (20:51)
[2018-06-12] MEDS: MONTELUKAST 10 MG (SINGULAIR) TAB PO SCH (20:52)
[2018-06-12] MEDS: ALPRAZolam 0.5 MG (XANAX) TAB PO SCH (20:54)
[2018-06-12] MEDS: GEMFIBROZIL 600 MG (LOPID) TAB PO SCH (20:54)
[2018-06-12] MEDS ORDERED: NON-FORMULARY MEDICATION 1 EA EA (Gemfibrozil 600 MG) PO SCH (21:00)
[2018-06-12] MEDS ORDERED: ASPIRIN E.C. 81 MG (ECOTRIN) TAB PO SCH (21:00)
[2018-06-13] VITALS (7 sets, daily range): BP systolic 138–176; BP diastolic 65–78
[2018-06-13] MEDS: inSUlin ASPART (NovoLOG) 1 UNIT/0.01 ML (CHARGE PER UNIT) SC SCH ×4 (05:40→21:12)
[2018-06-13 05:58] LABS: BASOPHILS % (AUTO) 0 % (0-10); EOSINOPHILS # (AUTO) 0.2 10^3/uL (0.0-0.3); EOSINOPHILS % (AUTO) 5 % (0-10); HEMATOCRIT 37 % (35-52); HEMOGLOBIN 12.2 G/DL (11.5-16.0); LYMPHOCYTES % (AUTO) 21 % (12-44); MEAN CORPUSCULAR HEMOGLOBIN 33 PG (25-34); MEAN CORPUSCULAR HGB CONC 33 G/DL (32-36); MEAN CORPUSCULAR VOLUME 100 FL (80-99); MEAN PLATELET VOLUME 9.5 FL (7.4-10.4); MONOCYTES # (AUTO) 0.6 X 10^3 (0.0-1.0); MONOCYTES % (AUTO) 13 % (0-12); NEUTROPHILS # (AUTO) 2.9 X 10^3 (1.8-7.8); NEUTROPHILS % (AUTO) 60 % (42-75); PLATELET COUNT 149 10^3/uL (130-400); RED CELL DISTRIBUTION WIDTH 13.5 % (10.0-14.5); WHITE BLOOD COUNT 4.8 10^3/uL (4.3-11.0)
[2018-06-13] MEDS: MULTIVIT W/MINERALS TAB (THERAGRAN M) PO SCH (06:08)
[2018-06-13] MEDS: glipiZIDE 5 MG (GLUCOTROL) TAB PO SCH ×2 (06:08→16:52)
[2018-06-13] MEDS: PANTOPRAZOLE 20 MG TABLET (PROTONIX) PO SCH (06:08)
[2018-06-13 06:19] LABS: ALANINE AMINOTRANSFERASE 49 U/L (0-55); ALBUMIN 3.8 GM/DL (3.2-4.5); ALKALINE PHOSPHATASE 62 U/L (40-136); BILIRUBIN,TOTAL 0.3 MG/DL (0.1-1.0); BUN/CREATININE RATIO 28; CALCIUM 8.9 MG/DL (8.5-10.1); CARBON DIOXIDE 19 MMOL/L (21-32); CHLORIDE 110 MMOL/L (98-107); CREATININE SERUM 0.74 MG/DL (0.60-1.30); GFR ESTIMATED > 60; GLUCOSE 107 MG/DL (70-105); POTASSIUM 4.6 MMOL/L (3.6-5.0); SODIUM 139 MMOL/L (135-145); TOTAL PROTEIN 6.4 GM/DL (6.4-8.2)
[2018-06-13] MEDS: ALPRAZolam 0.5 MG (XANAX) TAB PO SCH ×2 (08:07→21:09)
[2018-06-13] MEDS: SERTRALINE 50 MG (ZOLOFT) TABLET PO SCH (08:08)
[2018-06-13] MEDS: GABAPENTIN 600 MG (NEURONTIN) TAB PO SCH ×4 (08:08→21:11)
[2018-06-13] MEDS: ALLOPURINOL 100 MG (ZYLOPRIM) TAB PO SCH (08:08)
[2018-06-13] MEDS: VALSARTAN 160 MG (DIOVAN) TABLET PO SCH (08:08)
[2018-06-13] MEDS: PRIMIDONE 50 MG TAB (MYSOLINE) PO SCH ×2 (08:09→21:24)
[2018-06-13] MEDS: CALCIUM CARBONATE 600 MG (CALCARB) TAB PO SCH (08:09)
[2018-06-13] MEDS: CLINDAMYCIN 600 MG/50 ML IVPB 50 ML IV SCH ×3 (08:09→23:24)
[2018-06-13] MEDS: GEMFIBROZIL 600 MG (LOPID) TAB PO SCH ×2 (08:09→21:24)
[2018-06-13] MEDS ORDERED: NON-FORMULARY MEDICATION 1 EA EA (Allopurinol 100 MG) PO SCH (09:00)
[2018-06-13] MEDS ORDERED: OMEPRAZOLE 20 MG (PriLOSEC) CAP NON-FORMULARY PO SCH (09:00)
[2018-06-13] MEDS ORDERED: NON-FORMULARY MEDICATION 1 EA EA (Mirabegron (Myrbetriq) 25 MG) PO SCH (09:00)
--- NOTE | 2018-06-13 09:44 | Discharge Summary-Hospitalist ---
Diagnosis/Chief Complaint Date of Admission June 11, 2018 at 11:54 Date of Discharge Discharge Date: June 13, 2018 Discharge Diagnosis (1) Diabetic infection of left foot Status: Acute (2) Hyperkalemia Status: Acute (3) Non-insulin dependent type 2 diabetes mellitus Status: Chronic Discharge Summary Discharge Physical Exam Allergies: Coded Allergies: No Known Drug Allergies (Unverified , 06/11/18) Vitals & I&Os Vital Signs Date Time Temp Pulse Resp B/P (MAP) Pulse Ox O2 Delivery O2 Flow Rate FiO2 06/13/18 19:20 98.4 76 20 168/72 (104) 95 Room Air Hospital Course Labs (last 24 hrs) Laboratory Tests 06/13/18 05:17: Glucometer 101 06/13/18 05:35: White Blood Count 4.8, Red Blood Count 3.70L, Hemoglobin 12.2, Hematocrit 37, Mean Corpuscular Volume 100H, Mean Corpuscular Hemoglobin 33, Mean Corpuscular Hemoglobin Concent 33, Red Cell Distribution Width 13.5, Platelet Count 149, Mean Platelet Volume 9.5, Neutrophils (%) (Auto) 60, Lymphocytes (%) (Auto) 21, Monocytes (%) (Auto) 13H, Eosinophils (%) (Auto) 5, Basophils (%) (Auto) 0, Neutrophils # (Auto) 2.9, Lymphocytes # (Auto) 1.0, Monocytes # (Auto) 0.6, Eosinophils # (Auto) 0.2, Basophils # (Auto) 0.0, Sodium Level 139, Potassium Level 4.6, Chloride Level 110H, Carbon Dioxide Level 19L, Anion Gap 10, Blood Urea Nitrogen 21H, Creatinine 0.74, Estimat Glomerular Filtration Rate > 60, BUN /Creatinine Ratio 28, Glucose Level 107H, Calcium Level 8.9, Corrected Calcium 9.1, Total Bilirubin 0.3, Aspartate Amino Transf (AST/SGOT) 54H, Alanine Aminotransferase (ALT/SGPT) 49, Alkaline Phosphatase 62, Total Protein 6.4, Albumin 3.8 06/13/18 11:07: Glucometer 100 06/13/18 15:45: Glucometer 125H 06/13/18 19:50: Glucometer 147H Microbiology 06/11/18 Blood Culture - Preliminary, Resulted No growth Patient resulted labs reviewed. Pending Labs Laboratory Tests 06/13/18 15:45: Glucometer 125 06/13/18 19:50: Glucometer 147 Discharge Home Medications: Active Scripts Active Reported Fluticasone Propionate 16 Gm [place].susp 2 Sprays NS DAILY PRN Mysoline (Primidone) 50 Mg Tablet 100 Mg PO BID TAKES 2 (50MG) TABLETS Multivitamins (Multivitamin) 1 Each Tablet 1 Tab PO DAILY Montelukast Sodium 10 Mg Tablet 10 Mg PO HS Glipizide 5 Mg Tablet 5 Mg PO BID Aspirin EC (Aspirin) 81 Mg Tablet.dr 81 Mg PO HS Calcium (Calcium Carbonate) 600 Mg Tablet 600 Mg PO DAILY Sertraline HCl 50 Mg Tablet 50 Mg PO DAILY Myrbetriq (Mirabegron) 25 Mg Tab.er.24h 25 Mg PO DAILY Tramadol HCl 50 Mg Tablet 25 Mg PO BID TAKES 1/2 (50MG) TABLET Valsartan 160 Mg Tablet 80 Mg PO DAILY TAKES 1/2 (160MG) TABLET Gabapentin 600 Mg Tablet 600 Mg PO QID Gemfibrozil 600 Mg Tablet 600 Mg PO BID Alprazolam 0.5 Mg Tablet 0.5 Mg PO BID Omeprazole 20 Mg Capsule.dr 20 Mg PO DAILY Allopurinol 100 Mg Tablet 100 Mg PO DAILY Instructions to patient/family Please see electronic discharge instructions given to patient. Clinical Quality Measures DVT/VTE Risk/Contraindication: Risk Factor Score Per Nursin RFS Level Per Nursing on Admit: 4+=Very High BRIANNA HERNANDEZ DO June 13, 2018 09:44
[2018-06-13] MEDS: NS IV 1000 ML 1,000 ML IV SCH (11:39)
--- NOTE | 2018-06-13 13:24 | Progress Note-Hospitalist ---
Subjective HPI/CC On Admission Date Seen by Provider: June 13, 2018 Time Seen by Provider: 09:45 Subjective/Events-last exam Hospital course: Pt had a brief hospital course, she was admitted for possible early cellulitis of the left foot but upon a further assessment it was evaluated by Dr. Hutchins and Dr. Zafar to be a chronic type of ulceration with callus formation that will need a procedure for debridement as an outpatient and she did not require any antibiotics at discharge since there was no evidence of any cellulitis. She will resume all of her home medication and will return back to her previous living arrangements with close follow up with either Dr. Hutchins in [place] for debridement and definitive treatment. Change of plans Dr Hutchins will perform surgery tomorrow Tuesday for definitive treatment. Review of Systems Musculoskeletal: foot pain Focused Exam Lactate Level 06/11/18 10:00: Lactic Acid Level 1.08 Objective Exam Vital Signs Vital Signs Date Time Temp Pulse Resp B/P (MAP) Pulse Ox O2 Delivery O2 Flow Rate FiO2 06/13/18 19:20 98.4 76 20 168/72 (104) 95 Room Air Capillary Refill : Less Than 3 SecondsLess Than 3 Seconds General Appearance: No Apparent Distress, WD/WN; No Chronically ill Respiratory: Chest Non Tender, Lungs Clear, Normal Breath Sounds, No Accessory Muscle Use, No Respiratory Distress Cardiovascular: Regular Rate, Rhythm, No Edema, No Gallop, No JVD, No Murmur, Normal Peripheral Pulses Extremity: Other (left foot with ulceration in callous with drainage) Neurologic/Psychiatric: Alert, No Motor/Sensory Deficits, Normal Mood/Affect, Disoriented Skin: Normal Color, Warm/Dry Results/Procedures Lab Laboratory Tests 06/13/18 05:35 Patient resulted labs reviewed. Assessment/Plan Assessment and Plan Assess & Plan/Chief Complaint Assessment: Chronic left foot ulcer DM Mentally challenged HTN Hyperkalemia Gout GERD Plan: Appreciate Dr Hutchins Monitor labs IV ab OR Tuesday Diagnosis/Problems Diagnosis/Problems (1) Diabetic infection of left foot Status: Acute (2) Hyperkalemia Status: Acute (3) Non-insulin dependent type 2 diabetes mellitus Status: Chronic Clinical Quality Measures DVT/VTE Risk/Contraindication: Risk Factor Score Per Nursin RFS Level Per Nursing on Admit: 4+=Very High BRIANNA HERNANDEZ DO June 13, 2018 13:24
--- NOTE | 2018-06-13 14:16 | NUR ---
CM/SS, initial interview. Surgery planned tomorrow on left foot, discharge planning to continue based on patient's recovery and specific needs. Patient is extremely hard of hearing but does well with her aids, she presents functionally with probable lower I.Q. She was never and has no children. She indicates this visit she was one of 10 children which included 3 sets of twins. Patient and one sister are the only ones living. IN-HOME SERVICES: Established through [facility] Layla Menjivar [phone]. As of February 2018 patient's hours were 87 weekly, 45 day hours and 42 overnight hours. She has workers in a.m. and p.m., then overnight sleep cycle. This will continue upon patient's return home. [facility] should be updated about discharge so that they can activate patient's schedule. Patient also has MOW. HHC: Follow post op. Anticipate wound care, possible wound vac. Will need to monitor for home with services and HHC vs short term SNF placement.
--- NOTE | 2018-06-13 16:47 | Progress Note ---
Subjective Time Seen by a Provider: 13:17 Subjective/Events-last exam Pt seen and examined, no new comlaints. Review of Systems General: No Chills, No Night Sweats Pulmonary: No Dyspnea, No Cough Cardiovascular: No: Chest Pain, Palpitations Gastrointestinal: No: Nausea, Vomiting Focused Exam Lactate Level 06/11/18 10:00: Lactic Acid Level 1.08 Objective Exam Vital Signs Date Time Temp Pulse Resp B/P (MAP) Pulse Ox O2 Delivery O2 Flow Rate FiO2 06/13/18 15:40 98.1 70 18 172/78 (109) 96 Room Air 06/13/18 15:07 72 06/13/18 12:00 98.0 65 20 176/78 (110) 96 Room Air 06/13/18 08:30 97.8 66 18 157/74 (101) 96 Room Air 06/13/18 08:11 Room Air 06/13/18 07:00 61 06/13/18 04:00 97.6 66 16 170/73 (105) 97 Room Air 06/13/18 01:00 54 06/13/18 00:23 98.3 62 16 138/65 (89) 96 Room Air 06/12/18 20:10 97.8 64 18 142/88 (106) 95 Room Air 06/12/18 20:00 Room Air 06/12/18 19:00 61 I & O 06/13/18 07:00 Intake Total 3060 ml Output Total 1560 ml Balance 1500 ml Capillary Refill : Less Than 3 SecondsLess Than 3 Seconds General Appearance: No Apparent Distress, WD/WN Respiratory: Chest Non Tender, Lungs Clear, Normal Breath Sounds, No Accessory Muscle Use, No Respiratory Distress Cardiovascular: Regular Rate, Rhythm, No Edema, No Murmur, Normal Peripheral Pulses Gastrointestinal: normal bowel sounds, non tender, soft, no organomegaly, no pulsatile mass Extremity: Other (left foot with ulceration in callous with drainage) Neurologic/Psychiatric: Alert, No Motor/Sensory Deficits, Normal Mood/Affect, Disoriented Results Lab Laboratory Tests 06/12/18 20:14: Glucometer 112H 06/13/18 05:17: Glucometer 101 06/13/18 05:35: White Blood Count 4.8, Red Blood Count 3.70L, Hemoglobin 12.2, Hematocrit 37, Mean Corpuscular Volume 100H, Mean Corpuscular Hemoglobin 33, Mean Corpuscular Hemoglobin Concent 33, Red Cell Distribution Width 13.5, Platelet Count 149, Mean Platelet Volume 9.5, Neutrophils (%) (Auto) 60, Lymphocytes (%) (Auto) 21, Monocytes (%) (Auto) 13H, Eosinophils (%) (Auto) 5, Basophils (%) (Auto) 0, Neutrophils # (Auto) 2.9, Lymphocytes # (Auto) 1.0, Monocytes # (Auto) 0.6, Eosinophils # (Auto) 0.2, Basophils # (Auto) 0.0, Sodium Level 139, Potassium Level 4.6, Chloride Level 110H, Carbon Dioxide Level 19L, Anion Gap 10, Blood Urea Nitrogen 21H, Creatinine 0.74, Estimat Glomerular Filtration Rate > 60, BUN /Creatinine Ratio 28, Glucose Level 107H, Calcium Level 8.9, Corrected Calcium 9.1, Total Bilirubin 0.3, Aspartate Amino Transf (AST/SGOT) 54H, Alanine Aminotransferase (ALT/SGPT) 49, Alkaline Phosphatase 62, Total Protein 6.4, Albumin 3.8 06/13/18 11:07: Glucometer 100 06/13/18 15:45: Glucometer 125H Microbiology 06/11/18 Blood Culture - Preliminary, Resulted No growth Assessment/Plan Assessment/Plan Assessment/Plan Left foot growth DM with Neuropathy Plan is to remove the left foot growth tomorrow and send to pathology; if can't get the skin closed will use wound VAC. Risks and complications discussed with pt and all questions answered to her satisfaction. Clinical Quality Measures DVT/VTE Risk/Contraindication: Risk Factor Score Per Nursin RFS Level Per Nursing on Admit: 4+=Very High JUANJOSE BISHOP DO June 13, 2018 16:47
[2018-06-13] MEDS: MONTELUKAST 10 MG (SINGULAIR) TAB PO SCH (21:09)
[2018-06-13] MEDS: FLUTICASONE NASAL SPRAY (FLONASE) 16 GM BTL NS PRN (21:15)
[2018-06-14] VITALS (12 sets, daily range): BP systolic 132–181; BP diastolic 64–77
[2018-06-14] MEDS: NS IV 1000 ML 1,000 ML IV SCH ×2 (03:19→20:44)
[2018-06-14] MEDS: glipiZIDE 5 MG (GLUCOTROL) TAB PO SCH ×2 (06:07→18:38)
[2018-06-14] MEDS: inSUlin ASPART (NovoLOG) 1 UNIT/0.01 ML (CHARGE PER UNIT) SC SCH ×4 (06:08→21:00)
[2018-06-14] MEDS: PANTOPRAZOLE 20 MG TABLET (PROTONIX) PO SCH (06:08)
[2018-06-14] MEDS: MULTIVIT W/MINERALS TAB (THERAGRAN M) PO SCH (06:08)
[2018-06-14 06:13] LABS: BASOPHILS % (AUTO) 1 % (0-10); EOSINOPHILS # (AUTO) 0.2 10^3/uL (0.0-0.3); EOSINOPHILS % (AUTO) 4 % (0-10); HEMATOCRIT 38 % (35-52); HEMOGLOBIN 12.6 G/DL (11.5-16.0); LYMPHOCYTES % (AUTO) 21 % (12-44); MEAN CORPUSCULAR HEMOGLOBIN 33 PG (25-34); MEAN CORPUSCULAR HGB CONC 33 G/DL (32-36); MEAN CORPUSCULAR VOLUME 99 FL (80-99); MEAN PLATELET VOLUME 9.8 FL (7.4-10.4); MONOCYTES # (AUTO) 0.6 X 10^3 (0.0-1.0); MONOCYTES % (AUTO) 13 % (0-12); NEUTROPHILS # (AUTO) 2.9 X 10^3 (1.8-7.8); NEUTROPHILS % (AUTO) 62 % (42-75); PLATELET COUNT 141 10^3/uL (130-400); RED CELL DISTRIBUTION WIDTH 13.1 % (10.0-14.5); WHITE BLOOD COUNT 4.8 10^3/uL (4.3-11.0)
[2018-06-14 06:37] LABS: ALANINE AMINOTRANSFERASE 50 U/L (0-55); ALBUMIN 3.8 GM/DL (3.2-4.5); ALKALINE PHOSPHATASE 57 U/L (40-136); BILIRUBIN,TOTAL 0.3 MG/DL (0.1-1.0); BUN/CREATININE RATIO 23; CALCIUM 9.5 MG/DL (8.5-10.1); CARBON DIOXIDE 20 MMOL/L (21-32); CHLORIDE 108 MMOL/L (98-107); CREATININE SERUM 0.71 MG/DL (0.60-1.30); GFR ESTIMATED > 60; GLUCOSE 106 MG/DL (70-105); POTASSIUM 4.7 MMOL/L (3.6-5.0); SODIUM 138 MMOL/L (135-145); TOTAL PROTEIN 6.4 GM/DL (6.4-8.2)
--- NOTE | 2018-06-14 09:38 | Progress Note-Hospitalist ---
Subjective HPI/CC On Admission Date Seen by Provider: June 14, 2018 Time Seen by Provider: 09:15 Subjective/Events-last exam Going to OR today by Dr. Hutchins Reviewed labs Denies any pain except for in her feet Mentally challenged status makes it difficult to communicate Review of Systems Musculoskeletal: foot pain Focused Exam Lactate Level Objective Exam Vital Signs Vital Signs Date Time Temp Pulse Resp B/P (MAP) Pulse Ox O2 Delivery O2 Flow Rate FiO2 06/14/18 19:57 97.4 85 24 153/73 (99) 95 Room Air 06/14/18 17:17 3.00 Capillary Refill : Less Than 3 SecondsLess Than 3 Seconds General Appearance: No Apparent Distress, WD/WN; No Chronically ill HEENT: PERRL/EOMI, Normal ENT Inspection, Pharynx Normal Respiratory: Chest Non Tender, Lungs Clear, Normal Breath Sounds, No Accessory Muscle Use, No Respiratory Distress Cardiovascular: Regular Rate, Rhythm, No Edema, No Gallop, No JVD, No Murmur, Normal Peripheral Pulses Extremity: Other (left foot with ulceration in callous with drainage) Neurologic/Psychiatric: Alert, No Motor/Sensory Deficits, Normal Mood/Affect, Disoriented Skin: Normal Color, Warm/Dry Results/Procedures Lab Laboratory Tests 06/14/18 05:40 Patient resulted labs reviewed. Assessment/Plan Assessment and Plan Assess & Plan/Chief Complaint Assessment: Chronic left foot ulcer DM Mentally challenged HTN Hyperkalemia Gout GERD Plan: Appreciate Dr Hutchins Monitor labs IV abx OR today Diagnosis/Problems Diagnosis/Problems (1) Diabetic infection of left foot Status: Acute (2) Hyperkalemia Status: Acute (3) Non-insulin dependent type 2 diabetes mellitus Status: Chronic Clinical Quality Measures DVT/VTE Risk/Contraindication: Risk Factor Score Per Nursin RFS Level Per Nursing on Admit: 4+=Very High BRIANNA HERNANDEZ DO June 14, 2018 09:38
[2018-06-14] MEDS: VALSARTAN 160 MG (DIOVAN) TABLET PO SCH (09:52)
[2018-06-14] MEDS: CALCIUM CARBONATE 600 MG (CALCARB) TAB PO SCH (09:52)
[2018-06-14] MEDS: PRIMIDONE 50 MG TAB (MYSOLINE) PO SCH ×2 (09:53→20:39)
[2018-06-14] MEDS: SERTRALINE 50 MG (ZOLOFT) TABLET PO SCH (09:53)
[2018-06-14] MEDS: ALPRAZolam 0.5 MG (XANAX) TAB PO SCH ×2 (09:53→20:38)
[2018-06-14] MEDS: GABAPENTIN 600 MG (NEURONTIN) TAB PO SCH ×4 (09:53→20:39)
[2018-06-14] MEDS: ALLOPURINOL 100 MG (ZYLOPRIM) TAB PO SCH (09:53)
[2018-06-14] MEDS: GEMFIBROZIL 600 MG (LOPID) TAB PO SCH ×2 (09:53→20:39)
[2018-06-14] MEDS: CLINDAMYCIN 600 MG/50 ML IVPB 50 ML IV SCH ×3 (09:54→23:54)
[2018-06-14] MEDS: fentaNYL INJECTION 100 MCG/2 ML AMP IVP PRN ×3 (13:07→23:54)
[2018-06-14] MEDS ORDERED: LIDOCAINE 1% INJ 20 ML 20 ML VIAL ONE (14:16)
[2018-06-14] MEDS ORDERED: BUP/EPI 0.5% 1:200,000 (SENSORCAINE) 30 ML VIAL ONE (14:16)
[2018-06-14] MEDS ORDERED: ONDANSETRON 4 MG/2 ML (SDV) Z0FRAN ONE (14:20)
[2018-06-14] MEDS ORDERED: SEVOFLURANE (ULTANE) 15 ML INHAL SOLN ONE (14:20)
[2018-06-14] MEDS ORDERED: proPOfol 200 MG/20 ML (DIPRIVAN) VIAL IV ONE (14:20)
[2018-06-14] MEDS ORDERED: fentaNYL INJECTION 100 MCG/2 ML AMP ONE (14:20)
[2018-06-14] MEDS ORDERED: LIDOCAINE PF 2% 5 ML (XYLOCAINE) VIAL ONE (14:20)
[2018-06-14] MEDS ORDERED: ENALAPRILAT 2.5 MG/2 ML (VASOTEC) VIAL IV ONE ×2 (14:25→14:30)
--- NOTE | 2018-06-14 15:36 | Progress Note-Post Operative ---
Post-Operative Progess Note Surgeon (s)/Technical Sme (s) Surgeon JUANJOSE BISHOP DO Technical Sme: none Pre-Operative Diagnosis Left foot mass Post-Operative Diagnosis same pending pathology Procedure & Operative Findings Date of Procedure 06/14/18 Procedure Performed/Findings Excision left foot mass; which measured 4.6 x 5.6cm Wound VAC placement, 4.6 x 3.8 cm Anesthesia Type GET Estimated Blood Loss Estimated blood loss (mL): less than 5ml Specimens/Packing Specimens Removed left foot mass JUANJOSE BISHOP DO June 14, 2018 15:36
[2018-06-14] MEDS ORDERED: HYDROmorphone 2 MG/ML VIAL (DILAUDID) IV ONE (15:45)
[2018-06-14] MEDS ORDERED: ONDANSETRON 4 MG/2 ML (SDV) Z0FRAN IVP PRN (15:45)
[2018-06-14] MEDS: MONTELUKAST 10 MG (SINGULAIR) TAB PO SCH (20:39)
[2018-06-14] MEDS ORDERED: RT-ALBUTEROL SULF 2.5 MG/3 ML PRE-MIX VIAL INH PRN (21:00)
[2018-06-14] MEDS ORDERED: CHLORASEPTIC SPRAY 177 ML LIQUID MC PRN (21:00)
[2018-06-15] VITALS (7 sets, daily range): BP systolic 120–150; BP diastolic 61–75
--- NOTE | 2018-06-15 00:24 | OPERATIVE REPORT ---
DATE OF SERVICE: PREOPERATIVE DIAGNOSIS: Left foot mass. POSTOPERATIVE DIAGNOSIS: Left foot mass, pending pathology. PROCEDURES: 1. Excision of left foot mass, mass measured 4.6 x 5.6 cm. 2. Placement of a wound VAC, wound bed dimension measured 4.6 x 3.8 cm. SURGEON: Navi Hutchins DO. MACHINERY MOVER: None. ANESTHESIA: General endotracheal tube. BLOOD LOSS: Scant. FLUIDS: Per anesthesia. POSTOPERATIVE CONDITION: Stable. SPECIMEN: Left foot mass measuring 4.6 x 5.6 cm. INDICATION FOR PROCEDURE: The patient is a 77-year-old female who has a mass on the left foot that has apparently been growing in size changing color and they thought was possibly infected need to get this removed and sent to pathology. FINDINGS: The patient had a large mass measured about 4.6 x 5.6 cm all went through the layers of the skin into the fascia, but did not see muscle or bone. All this was sent to pathology. PROCEDURE NOTE: After informed consent was obtained, the patient was brought to the operating room, placed on the table in supine position. She was sterilely prepped and draped in normal fashion. Local lidocaine was used to infiltrate the skin underneath this large mass. I then made an incision with #15 blade, carried down through the skin into the subcutaneous tissue, then deepened down to subcutaneous tissue with Bovie electrocautery, taking this mass off, basically shelling it off. It went down to the fascia, I did not see any muscle and did not really see any bone, but was very close to the bone could feel it. This mesh measured about 4.6 x 5.6 cm. It was sent to pathology. Hemostasis obtained using Bovie electrocautery. Flushed with the saline and dried and then elected to place a wound VAC put occlusive dressing down then a sponge, placed occlusive dressing over the top, cut a hole in it and then placed the wound VAC suction device and hooked up to the wound VAC. This wound bed measured 4.6 x 3.8 cm. Area was cleaned and dried and the patient was then transferred to recovery room in stable condition. Sponge, instrument and needle counts were correct at the end of the case. Job ID: [id number] DocumentID: [id number] Dictated Date: 06/14/2018 16:40:09 Big Data Admin Date: 06/15/2018 00:23:33 Dictated By: NAVI HUTCHINS DO MTDD
[2018-06-15] MEDS: fentaNYL INJECTION 100 MCG/2 ML AMP IVP PRN (03:53)
[2018-06-15] MEDS: ENOXAPARIN 40 MG/0.4 ML (LOVENOX) SYR SC SCH ×2 (03:57→21:48)
[2018-06-15] MEDS: inSUlin ASPART (NovoLOG) 1 UNIT/0.01 ML (CHARGE PER UNIT) SC SCH ×4 (06:40→21:47)
[2018-06-15] MEDS: PANTOPRAZOLE 20 MG TABLET (PROTONIX) PO SCH (07:01)
[2018-06-15] MEDS: MULTIVIT W/MINERALS TAB (THERAGRAN M) PO SCH (07:01)
[2018-06-15] MEDS: glipiZIDE 5 MG (GLUCOTROL) TAB PO SCH ×2 (07:01→17:33)
[2018-06-15] MEDS: ALLOPURINOL 100 MG (ZYLOPRIM) TAB PO SCH (08:38)
[2018-06-15] MEDS: ALPRAZolam 0.5 MG (XANAX) TAB PO SCH ×2 (08:38→21:47)
[2018-06-15] MEDS: GEMFIBROZIL 600 MG (LOPID) TAB PO SCH ×2 (08:38→21:46)
[2018-06-15] MEDS: VALSARTAN 160 MG (DIOVAN) TABLET PO SCH (08:39)
[2018-06-15] MEDS: GABAPENTIN 600 MG (NEURONTIN) TAB PO SCH ×4 (08:40→21:46)
[2018-06-15] MEDS: SERTRALINE 50 MG (ZOLOFT) TABLET PO SCH (08:40)
[2018-06-15] MEDS: PRIMIDONE 50 MG TAB (MYSOLINE) PO SCH ×2 (08:40→21:47)
[2018-06-15] MEDS: CALCIUM CARBONATE 600 MG (CALCARB) TAB PO SCH (08:40)
[2018-06-15] MEDS: FLUTICASONE NASAL SPRAY (FLONASE) 16 GM BTL NS PRN (08:42)
[2018-06-15] MEDS: CLINDAMYCIN 600 MG/50 ML IVPB 50 ML IV SCH ×2 (08:43→16:26)
--- NOTE | 2018-06-15 08:50 | NUR ---
full tab of tramadol pulled by ryan RN, half tab of tramadol given by jorge Kee RN. This RN did waste the 1/2 tab in the omnicell.
--- NOTE | 2018-06-15 09:17 | Anesthesia-General Post-Op ---
General Patient Condition Mental Status/LOC: Same as Preop Cardiovascular: Satisfactory Nausea/Vomiting: Absent Respiratory: Satisfactory Pain: Controlled Complications: Absent Post Op Complications Complications None Follow Up Care/Instructions Patient Instructions None needed. Anesthesia/Patient Condition Patient Condition Patient is doing well, no complaints, stable vital signs, no apparent adverse anesthesia problems. No complications reported per nursing. RICCARDO FLORES CRNA June 15, 2018 09:17
--- NOTE | 2018-06-15 09:46 | Progress Note ---
Subjective Time Seen by a Provider: 09:22 Subjective/Events-last exam Pt seen and examined, complains of losing her voice and minimal pain in left foot. Review of Systems General: No Chills, No Night Sweats Pulmonary: No Dyspnea, No Cough Cardiovascular: No: Chest Pain, Palpitations Objective Exam Vital Signs Date Time Temp Pulse Resp B/P (MAP) Pulse Ox O2 Delivery O2 Flow Rate FiO2 06/15/18 08:00 98.2 70 20 137/62 (87) 98 High Flow N/C 3.00 06/15/18 08:00 98 Nasal Cannula 3.00 06/15/18 07:00 66 06/15/18 04:51 98.7 77 26 150/75 (100) 97 Room Air 3.00 3.00 06/15/18 04:00 98.2 75 24 120/71 (87) 97 Room Air 06/15/18 01:00 77 06/15/18 00:33 98.7 81 26 150/75 (100) 97 Room Air 06/14/18 21:34 96 Nasal Cannula 3.00 06/14/18 20:00 95 Nasal Cannula 3.00 06/14/18 19:57 97.4 85 24 153/73 (99) 95 Room Air 06/14/18 19:55 84 06/14/18 17:17 98.8 78 18 147/67 (93) 95 Simple Mask 3.00 06/14/18 16:25 12 94 OxyMask 2 06/14/18 16:20 100.6 22 96 OxyMask 2 06/14/18 16:10 19 96 OxyMask 3 06/14/18 16:00 17 96 OxyMask 5 06/14/18 15:50 20 96 OxyMask 5 06/14/18 15:40 12 97 OxyMask 5 06/14/18 15:36 98.2 14 98 OxyMask 5 06/14/18 12:59 64 06/14/18 11:59 98.6 64 16 181/74 (109) 95 Room Air I & O 06/15/18 07:00 Intake Total 400 ml Output Total 1150 ml Balance -750 ml Capillary Refill : Less Than 3 SecondsLess Than 3 Seconds General Appearance: No Apparent Distress, WD/WN; No Chronically ill HEENT: PERRL/EOMI, Moist Mucous Membranes Respiratory: Chest Non Tender, Lungs Clear, Normal Breath Sounds, No Accessory Muscle Use, No Respiratory Distress Cardiovascular: Regular Rate, Rhythm, No Murmur, Normal Peripheral Pulses Gastrointestinal: normal bowel sounds, non tender, soft, no organomegaly, no pulsatile mass Extremity: Other (left foot with wound VAC in place) Neurologic/Psychiatric: Alert, Disoriented Skin: Normal Color, Warm/Dry Results Lab Laboratory Tests 06/14/18 12:16: Glucometer 105 06/14/18 17:35: Glucometer 123H 06/14/18 21:13: Glucometer 124H 06/15/18 06:10: Glucometer 108 Microbiology 06/11/18 Blood Culture - Preliminary, Resulted No growth 06/13/18 MRSA Screen - Final, Complete Assessment/Plan Assessment/Plan Assessment/Plan S/P removal of Left foot growth - pending path DM with Neuropathy Pt ok to go home, will need HH set up to change VAC and may need boot to walk with. Pt should f/u in one week in my office. Clinical Quality Measures DVT/VTE Risk/Contraindication: Risk Factor Score Per Nursin RFS Level Per Nursing on Admit: 4+=Very High JUANJOSE BISHOP DO June 15, 2018 09:45
--- NOTE | 2018-06-15 10:03 | Progress Note-Hospitalist ---
Subjective HPI/CC On Admission Date Seen by Provider: June 15, 2018 Time Seen by Provider: 09:30 Subjective/Events-last exam Had some stridor last night so breathing treatments were ordered, maintained on oxygen but due to difficulty communicating and overall chronic debility I don't think she has been ambulating as much and Lovenox had been held due to operation slot per Dr Hutchins so will obtain CT angiogram to rule out PE. Wound vac in place on the left food Maintain on oxygen Very difficult to derive any reliable history from the pt Will check CBC and CMP stat Overall very stable, lungs are clear CT angiogram obtained did reveal bilateral PE so patient will be placed on Eliquis and maintained on O2 but noted on CT scan breast mass in a [facility] breast cancer patient who chose not to have any aggressive treatment for that so that added to the hypercoagulable state Review of Systems General: Fatigue Pulmonary: Dyspnea Musculoskeletal: foot pain Objective Exam Vital Signs Vital Signs Date Time Temp Pulse Resp B/P (MAP) Pulse Ox O2 Delivery O2 Flow Rate FiO2 06/15/18 19:17 Nasal Cannula 2.00 06/15/18 15:59 98.5 76 18 131/73 (92) 97 Capillary Refill : Less Than 3 SecondsLess Than 3 Seconds General Appearance: No Apparent Distress, WD/WN; No Chronically ill HEENT: PERRL/EOMI, Moist Mucous Membranes Respiratory: Chest Non Tender, Lungs Clear, Normal Breath Sounds, No Accessory Muscle Use, No Respiratory Distress Cardiovascular: Regular Rate, Rhythm, No Murmur, Normal Peripheral Pulses Extremity: Other (left foot with wound VAC in place) Neurologic/Psychiatric: Alert, No Motor/Sensory Deficits, Normal Mood/Affect, bread wrapper II-XII Norm as Tested, Disoriented Skin: Normal Color, Warm/Dry, Other (wound vac in place left lateral foot) Results/Procedures Lab Laboratory Tests 06/15/18 10:15 Patient resulted labs reviewed. Assessment/Plan Assessment and Plan Assess & Plan/Chief Complaint Assessment: Chronic left foot ulcer s/p excision of mass pathology pending DM Mentally challenged HTN Hyperkalemia Gout GERD Breast cancer declines treatment Pulmonary embolus Plan: Appreciate Dr Hutchins Monitor labs O2 Eliquis Wound vac DC on O2 and wound vac Diagnosis/Problems Diagnosis/Problems (1) Pulmonary embolism Status: Acute Qualifiers: Pulmonary embolism type: unspecified Chronicity: acute Acute cor pulmonale presence: without acute cor pulmonale Qualified Codes: I26.99 - Other pulmonary embolism without acute cor pulmonale (2) Diabetic infection of left foot Status: Acute (3) Hyperkalemia Status: Acute (4) Non-insulin dependent type 2 diabetes mellitus Status: Chronic (5) Breast cancer in female Status: Chronic Qualifiers: Breast location: unspecified site of breast Estrogen receptor status: unspecified Laterality: unspecified laterality Qualified Codes: C50.919 - Malignant neoplasm of unspecified site of unspecified female breast (6) Mass of left foot Status: Acute Clinical Quality Measures DVT/VTE Risk/Contraindication: Risk Factor Score Per Nursin RFS Level Per Nursing on Admit: 4+=Very High BRIANNA HERNANDEZ DO June 15, 2018 10:03
[2018-06-15 10:26] LABS: BASOPHILS % (AUTO) 0 % (0-10); EOSINOPHILS % (AUTO) 0 % (0-10); HEMATOCRIT 41 % (35-52); HEMOGLOBIN 13.8 G/DL (11.5-16.0); LYMPHOCYTES # (AUTO) 0.8 X 10^3 (1.0-4.0); LYMPHOCYTES % (AUTO) 8 % (12-44); MEAN CORPUSCULAR HEMOGLOBIN 33 PG (25-34); MEAN CORPUSCULAR HGB CONC 34 G/DL (32-36); MEAN CORPUSCULAR VOLUME 98 FL (80-99); MEAN PLATELET VOLUME 9.3 FL (7.4-10.4); MONOCYTES # (AUTO) 0.7 X 10^3 (0.0-1.0); MONOCYTES % (AUTO) 7 % (0-12); NEUTROPHILS # (AUTO) 8.5 X 10^3 (1.8-7.8); NEUTROPHILS % (AUTO) 85 % (42-75); PLATELET COUNT 182 10^3/uL (130-400); RED CELL DISTRIBUTION WIDTH 13.3 % (10.0-14.5); WHITE BLOOD COUNT 9.9 10^3/uL (4.3-11.0)
[2018-06-15 10:44] LABS: ALANINE AMINOTRANSFERASE 48 U/L (0-55); ALBUMIN 3.9 GM/DL (3.2-4.5); ALKALINE PHOSPHATASE 63 U/L (40-136); BILIRUBIN,TOTAL 0.3 MG/DL (0.1-1.0); BUN/CREATININE RATIO 22; CALCIUM 9.4 MG/DL (8.5-10.1); CARBON DIOXIDE 21 MMOL/L (21-32); CHLORIDE 107 MMOL/L (98-107); CREATININE SERUM 0.78 MG/DL (0.60-1.30); GFR ESTIMATED > 60; GLUCOSE 157 MG/DL (70-105); SODIUM 136 MMOL/L (135-145); TOTAL PROTEIN 6.7 GM/DL (6.4-8.2)
[2018-06-15 10:52] LABS: BAND NEUTROPHILS 5 %; BASOPHILS % (MANUAL) 0 %; EOSINOPHILS % (MANUAL) 0 %; LYMPHOCYTES % (MANUAL) 7 %; MONOCYTES % (MANUAL) 6 %; NEUTROPHILS % (MANUAL) 82 %; RBC MORPH NORMAL
[2018-06-15] MEDS ORDERED: CATHETER FLUSH 10 ML SYR IV PRN (11:00)
[2018-06-15] MEDS ORDERED: IOHEXOL 350 MG/ML 150 ML (OMNIPAQUE 350) VIAL IV ONE (11:00)
[2018-06-15] MEDS ORDERED: HOLD METFORMIN - RECEIVED CONTRAST 20 ML VIAL IV SCH (11:00)
--- NOTE | 2018-06-15 11:26 | Diagnostic Imaging Report ---
PROCEDURE: CT angiography of the chest with contrast. TECHNIQUE: Multiple contiguous axial images were obtained through the chest after uneventful bolus administration of intravenous contrast. 2D reconstructed CTA MIP acquisitions were also performed. Auto Exposure Controls were utilized during the CT exam to meet ALARA standards for radiation dose reduction. INDICATION: Shortness of air. Patient has history of breast carcinoma. No prior studies are available for comparison. There is a spiculated mass in the right breast measuring 3.5 cm. This is likely owing to patient's known breast carcinoma. Overall quality is somewhat compromised due to patient's body habitus. Central pulmonary arteries are widely patent. There are questionable filling defects within the lobar and segmental branches however again these are somewhat suboptimal in evaluation. Thoracic aorta is without evidence of dissection. The heart is enlarged. There is no pericardial or pleural fluid identified. There appears to be some infiltrate or atelectasis in the left lower lobe. Upper abdomen demonstrates marked atrophy involving the right kidney with compensatory enlargement to the left kidney. Impression: 1. Suboptimal study, likely on the patient's body habitus. There are findings suspicious for bilateral lower lobe pulmonary emboli within lobar and segmental branches. 2. Left lower lobe infiltrate or atelectasis. 3. Spiculated mass in the right breast suggestive of patient's known right breast carcinoma. Dictated by: Dictated on workstation # [id number]
[2018-06-15] MEDS: APIXABAN 5 MG (ELIQUIS) TABLET PO SCH ×2 (14:04→21:46)
--- NOTE | 2018-06-15 15:44 | NUR ---
CM/SS, final discharge planning anticipated for tomorrow. HHC: Referral to be completed with [facility]la Menjivar RN for wound care and vac change, PT/OT for maximizing mobility, strength, level of independence. Activity Therapist sent foundation clinical and demographics so they could open services and check benefits. They will need the required orders, F2F, and discharge instructions. DME: Patient has wheelchair and FWW. Home staff will receive patient at her house and use wheelchair to get her inside, she does have a ramp. HCBS/[place]: Pillowcase Cleaner is Anamika Bernal, PH: [phone]. She is very proactive and supportive of patient needs, she assisted with communication and coordination. Anamika will advance patient's care hours due to change in condition and higher care needed, she will go to patient's home on Tuesday to assess in person for possible permanent increase of hours for in-home caregivers. Staff are managed through [facility] Menjivar, utility division project manager Brendan, CELL: [phone] and office [phone]. Brendan is updated, he understands [facility] will be managing patient wound care and other services along with her established team. Updated patient's YASMINE Jazzy Iniguez during several phone calls. She is unable to drive, she arranged for a evangelical friend to transport patient home. He will be here mid to late morning, science writer updated unit RN to pass along in report, MGR/IGNACIO Corrales/Edouard. Edouard will change vac in a.m. to accommodate transport person. Staff should notify Jazzy and [facility] timely if patient is not discharged for some reason so they can cancel transport person and caregivers.
[2018-06-15] MEDS: MONTELUKAST 10 MG (SINGULAIR) TAB PO SCH (21:46)
[2018-06-16 00:39] VITALS: BP 113/56
[2018-06-16] MEDS: CLINDAMYCIN 600 MG/50 ML IVPB 50 ML IV SCH ×2 (00:45→08:10)
[2018-06-16 04:00] VITALS: BP 145/82
[2018-06-16] MEDS: inSUlin ASPART (NovoLOG) 1 UNIT/0.01 ML (CHARGE PER UNIT) SC SCH ×2 (06:34→11:31)
[2018-06-16] MEDS: PANTOPRAZOLE 20 MG TABLET (PROTONIX) PO SCH (07:30)
[2018-06-16] MEDS: MULTIVIT W/MINERALS TAB (THERAGRAN M) PO SCH (07:30)
[2018-06-16] MEDS: glipiZIDE 5 MG (GLUCOTROL) TAB PO SCH (07:30)
[2018-06-16 08:00] VITALS: BP 108/68
[2018-06-16] MEDS: SERTRALINE 50 MG (ZOLOFT) TABLET PO SCH (08:10)
[2018-06-16] MEDS: CALCIUM CARBONATE 600 MG (CALCARB) TAB PO SCH (08:10)
[2018-06-16] MEDS: ALPRAZolam 0.5 MG (XANAX) TAB PO SCH (08:10)
[2018-06-16] MEDS: ALLOPURINOL 100 MG (ZYLOPRIM) TAB PO SCH (08:10)
[2018-06-16] MEDS: PRIMIDONE 50 MG TAB (MYSOLINE) PO SCH (08:11)
[2018-06-16] MEDS: GEMFIBROZIL 600 MG (LOPID) TAB PO SCH (08:11)
[2018-06-16] MEDS: VALSARTAN 160 MG (DIOVAN) TABLET PO SCH (08:11)
[2018-06-16] MEDS: GABAPENTIN 600 MG (NEURONTIN) TAB PO SCH (08:11)
[2018-06-16] MEDS: APIXABAN 5 MG (ELIQUIS) TABLET PO SCH (08:11)
[2018-06-16] MEDS: fentaNYL INJECTION 100 MCG/2 ML AMP IVP PRN (09:51)
[2018-06-16] MEDS ORDERED: APIX5TAB PO ×2 (10:31→11:34)
[2018-06-16] MEDS ORDERED: TRAM50TA2 PO (10:31)
--- NOTE | 2018-06-16 10:34 | D/C HH Face to Face Order ---
D/C Face to Face Orders Instructions for Patient [facility] Patient Instructions/FollowUp: PCP in 1 week Physician to follow Patient: [facility] Discharge Diet for Home: ADA Diet Patient Problems: Left foot mass resection Pulmonary embolism acute DM Goals for Patient: Wound vac DC when would healed Patient Data-Allergies,Ht & Wt Patient Allergies: Coded Allergies: No Known Drug Allergies (Unverified , 06/11/18) Height (Feet): 5 Height (Inches): 3.00 Weight (Pounds): 155 Weight (Ounces): 3.0 Home Health Need/Face to Face Date of Face to Face: June 16, 2018 Clinical Findings: Generalized weakness and fatigue, Muscle weakness, Shortness of breath, Unsteady gait I have seen Pt [id number]: Yes Discharged To: Home Diagnosis/Conditions: Left foot mass resection Pulmonary embolism acute DM Patient is Homebound due to: CognItive deficits, Marika fall risk due to instabilty, Muscle weakness, Pain w/ambulation, Shortness of breath/distress Homebound Status Due to the above stated illness, injury or surgical procedure (medical condition or diagnosis) and associated clinical findings, the patient is homebound because of his/her inability to leave home except with aid of a supportive device and/or person AND leaving the home requires a considerable and taxing effort or is medically contraindicated. Pt req the following assistanc: Walker Home Health Nursing Orders Home Health Services Order: Nursing Services, Developer Advisor-Evaluate & Treat, Physical Therapy-Evaluate & Treat, Wound Care-Eval/Treat Home Health Infusion Therapy Line Start Date: June 11, 2018 Certify Stmt I certify that this patient is under my care and that I, a nurse practitioner or a physician; a assistant unit forester working with me, had a face to face encounter that - meets the physician face to face encounter requirements with this patient as dated. BRIANNA HERNANDEZ DO June 16, 2018 10:34
--- NOTE | 2018-06-16 10:35 | Discharge Summary-Hospitalist ---
Diagnosis/Chief Complaint Date of Admission June 11, 2018 at 11:54 Date of Discharge Discharge Date: June 13, 2018 Discharge Diagnosis (1) Pulmonary embolism Status: Acute (2) Diabetic infection of left foot Status: Acute (3) Hyperkalemia Status: Acute (4) Non-insulin dependent type 2 diabetes mellitus Status: Chronic (5) Breast cancer in female Status: Chronic (6) Mass of left foot Status: Acute Discharge Summary Discharge Physical Exam Allergies: Coded Allergies: No Known Drug Allergies (Unverified , 06/11/18) Vitals & I&Os Vital Signs Date Time Temp Pulse Resp B/P (MAP) Pulse Ox O2 Delivery O2 Flow Rate FiO2 06/16/18 12:45 75 20 108/68 94 Nasal Cannula 2.00 06/16/18 08:45 97.3 General Appearance: No Apparent Distress, WD/WN, Chronically ill Respiratory: Lungs Clear, Normal Breath Sounds Cardiovascular: Regular Rate, Rhythm, No Edema Neurologic/Psychiatric: Alert, Oriented x3, No Motor/Sensory Deficits Hospital Course Was the Problem List Reviewed?: Yes Hospital course: patient had a lengthy hospital course and complicated by difficulty communicating due to mentally challenged status. Patient was admitted for left foot cellulitis and maintained on Clindamycin and Dr Hutchins was consulted. She was set for surgery in [place] next week but after multiple conversations and changing decisions she was set to have surgery by Dr Hutchins and mass was excised in an uncomplicated manner. Patient experienced dyspnea and O2 was applied and Nebs and patient underwent CT angiogram which revealed bilateral PE's. Patient required home O2 at DC along with anticoagulation and wound vac was placed and patient was DC to home with caregivers and was ordered for wound care. Labs (last 24 hrs) Laboratory Tests 06/15/18 21:44: Glucometer 112H 06/16/18 04:56: Glucometer 77 06/16/18 11:15: Glucometer 90 Microbiology 06/11/18 Blood Culture - Preliminary, Resulted No growth 06/13/18 MRSA Screen - Final, Complete Patient resulted labs reviewed. Pending Labs Laboratory Tests 06/16/18 11:15: Glucometer 90 Discussion & Recommendations Discharge Planning: <30 minutes discharge planning Discharge Home Medications: Active Scripts Active Eliquis (Apixaban) 5 Mg Tablet 10 Mg PO BID TAKE 2 TABLETS TWICE DAILY X 7 DAYS THEN TAKE 1 TABLET TWICE DAILY Tramadol HCl 50 Mg Tablet 50 Mg PO Q6H PRN Reported Fluticasone Propionate 16 Gm [place].susp 2 Sprays NS DAILY PRN Mysoline (Primidone) 50 Mg Tablet 100 Mg PO BID TAKES 2 (50MG) TABLETS Multivitamins (Multivitamin) 1 Each Tablet 1 Tab PO DAILY Montelukast Sodium 10 Mg Tablet 10 Mg PO HS Glipizide 5 Mg Tablet 5 Mg PO BID Aspirin EC (Aspirin) 81 Mg Tablet.dr 81 Mg PO HS Calcium (Calcium Carbonate) 600 Mg Tablet 600 Mg PO DAILY Sertraline HCl 50 Mg Tablet 50 Mg PO DAILY Myrbetriq (Mirabegron) 25 Mg Tab.er.24h 25 Mg PO DAILY Valsartan 160 Mg Tablet 80 Mg PO DAILY TAKES 1/2 (160MG) TABLET Gabapentin 600 Mg Tablet 600 Mg PO QID Gemfibrozil 600 Mg Tablet 600 Mg PO BID Alprazolam 0.5 Mg Tablet 0.5 Mg PO BID Omeprazole 20 Mg Capsule.dr 20 Mg PO DAILY Allopurinol 100 Mg Tablet 100 Mg PO DAILY Instructions to patient/family Please see electronic discharge instructions given to patient. Clinical Quality Measures DVT/VTE Risk/Contraindication: Risk Factor Score Per Nursin RFS Level Per Nursing on Admit: 4+=Very High Problem Qualifiers (1) Pulmonary embolism: Pulmonary embolism type: unspecified Chronicity: acute Acute cor pulmonale presence: without acute cor pulmonale Qualified Codes: I26.99 - Other pulmonary embolism without acute cor pulmonale (2) Breast cancer in female: Breast location: unspecified site of breast Estrogen receptor status: unspecified Laterality: unspecified laterality Qualified Codes: C50.919 - Malignant neoplasm of unspecified site of unspecified female breast BRIANNA HERNANDEZ DO June 16, 2018 10:35
--- NOTE | 2018-06-16 10:54 | NUR ---
HOME OXYGEN STUDY PT PLACED ON ROOM AIR WHILE AT REST FOR HOME OXYGEN STUDY AND DESATED TO SPO2 86% ON ROOM AIR AFTER 20 MINUTES, PLACED PT BACK ON 2 LPM NASAL CANNULA AND SPO2 INCREASED TO 93%, PT WILL REQUIRE OXYGEN AT 2 LPM AT ALL TIMES
--- NOTE | 2018-06-16 10:56 | Progress Note ---
Subjective Date Seen by a Provider: June 16, 2018 Time Seen by a Provider: 10:52 Subjective/Events-last exam No acute events overnight. Patient denies having pain near the wound in her left foot. She had 4 formed bowel movements yesterday. She denies subjective fever, nausea, vomiting. Wound vac to left foot. Her shortness of breath is at her baseline. Objective Exam Vital Signs Date Time Temp Pulse Resp B/P (MAP) Pulse Ox O2 Delivery O2 Flow Rate FiO2 06/16/18 08:45 97.3 06/16/18 08:15 Nasal Cannula 3.00 06/16/18 08:00 97.4 75 20 108/68 (81) 97 High Flow N/C 3.00 06/16/18 07:00 74 06/16/18 04:00 97.3 70 20 145/82 (103) 98 High Flow N/C 3.00 06/16/18 00:45 66 06/16/18 00:39 97.2 65 24 113/56 (75) 97 High Flow N/C 3.00 06/15/18 20:00 Nasal Cannula 3.00 06/15/18 19:59 97.6 88 24 125/69 (87) 96 High Flow N/C 3.00 06/15/18 19:17 Nasal Cannula 2.00 06/15/18 19:00 79 06/15/18 15:59 98.5 76 18 131/73 (92) 97 High Flow N/C 3.00 06/15/18 13:00 75 06/15/18 11:49 98.0 70 20 130/61 (84) 94 High Flow N/C 3.00 I & O 06/16/18 07:00 Intake Total 2420 ml Balance 2420 ml Capillary Refill : Less Than 3 SecondsLess Than 3 Seconds General Appearance: No Apparent Distress, WD/WN; No Chronically ill HEENT: PERRL/EOMI, Moist Mucous Membranes Respiratory: Chest Non Tender, Normal Breath Sounds, No Accessory Muscle Use, No Respiratory Distress Cardiovascular: Regular Rate, Rhythm Gastrointestinal: non tender, soft, no organomegaly Extremity: Other (left foot with wound VAC in place, does not appear erythematous or edematous, draining serosanguinous.) Neurologic/Psychiatric: Alert, No Motor/Sensory Deficits, Normal Mood/Affect, claim manager II-XII Norm as Tested Skin: Warm/Dry, Other (wound vac in place left lateral foot) Lymphatic: No Adenopathy Results Lab Laboratory Tests 06/15/18 11:36: Glucometer 122H 06/15/18 16:23: Glucometer 99 06/15/18 21:44: Glucometer 112H 06/16/18 04:56: Glucometer 77 Microbiology 06/11/18 Blood Culture - Preliminary, Resulted No growth 06/13/18 MRSA Screen - Final, Complete Assessment/Plan Assessment/Plan Assessment/Plan S/P removal of Left foot growth - pending path DM with Neuropathy Pt ok to go home, will need HH set up to change VAC and may need boot to walk with. Pt should f/u in one week with Dr. Hutchins. Clinical Quality Measures DVT/VTE Risk/Contraindication: Risk Factor Score Per Nursin RFS Level Per Nursing on Admit: 4+=Very High Supervisory-Addendum Brief Supervisory Addendum Participated in pt care: history, MDM, physical Personally performed: exam, history, MDM, supervision of care Care discussed with: other (Margaret Scruggs) Results interpretation: agree with documentation KENZIE SCRUGGS MEDICAL STUDENT June 16, 2018 10:56 RONALDO CHONG DO June 16, 2018 18:23
--- NOTE | 2018-06-16 12:43 | Pulmonary Consultation ---
History of Present Illness History of Present Illness Date of Consultation 06/16/18 12:38 Date of Admission Allergies and Home Medications Allergies Coded Allergies: No Known Drug Allergies (Unverified , 06/11/18) Home Medications Allopurinol 100 Mg Tablet, 100 MG PO DAILY, (Reported) Alprazolam 0.5 Mg Tablet, 0.5 MG PO BID, (Reported) Apixaban 5 Mg Tablet, 10 MG PO BID TAKE 2 TABLETS TWICE DAILY X 7 DAYS THEN TAKE 1 TABLET TWICE DAILY Prescribed by: BRIANNA HERNANDEZ on 06/16/18 1134 Aspirin 81 Mg Tablet.dr, 81 MG PO HS, (Reported) Calcium Carbonate 600 Mg Tablet, 600 MG PO DAILY, (Reported) Fluticasone Propionate 16 Gm [place].susp, 2 SPRAYS NS DAILY PRN for ALLERGIES, ( Reported) Gabapentin 600 Mg Tablet, 600 MG PO QID, (Reported) Gemfibrozil 600 Mg Tablet, 600 MG PO BID, (Reported) Glipizide 5 Mg Tablet, 5 MG PO BID, (Reported) Mirabegron 25 Mg Tab.er.24h, 25 MG PO DAILY, (Reported) Montelukast Sodium 10 Mg Tablet, 10 MG PO HS, (Reported) Multivitamin 1 Each Tablet, 1 TAB PO DAILY, (Reported) Omeprazole 20 Mg Capsule.dr, 20 MG PO DAILY, (Reported) Primidone 50 Mg Tablet, 100 MG PO BID, (Reported) TAKES 2 (50MG) TABLETS Sertraline HCl 50 Mg Tablet, 50 MG PO DAILY, (Reported) Tramadol HCl 50 Mg Tablet, 50 MG PO Q6H PRN for PAIN-MODERATE Prescribed by: BRIANNA HERNANDEZ on 06/16/18 1031 Valsartan 160 Mg Tablet, 80 MG PO DAILY, (Reported) TAKES 1/2 (160MG) TABLET Past Nlssjxz-Yhtbqo-Acsann Hx Past Med/Social Hx: Reviewed Nursing Past Med/Soc Hx, Reviewed and Corrections made Patient Social History Alcohol Use: Denies Use Recreational Drug Use: No Type Used: Cigarettes Recent Foreign Travel: No Contact w/Someone Who Travel: No Recent Infectious Disease Expo: No Recent Hopitalizations: No Physical Abuse: No Sexual Abuse: No Mistreated: No Fear: No Seasonal Allergies Seasonal Allergies: No Past Medical History Surgeries: Yes (CATARACTS) Abdominal, Bowel Surgery, Breast, Gallbladder Respiratory: Yes Sleep Apnea Cardiac: Yes High Cholesterol, Hypertension Neurological: Yes (GUILLAIN-BARRE) Neuropathy STUNT MAN History: Menopausal Sexually Transmitted Disease: Yes (GONORRHEA) Genitourinary: Yes (INCONTINENCE) Gastrointestinal: Yes Gastrointestinal Bleed Musculoskeletal: Yes (RESTLESS LEGS; GAIT DISTURBANCE) Arthritis Endocrine: Yes Diabetes, Non-Insulin dep HEENT: Yes (NOSEBLEEDS; PERTUSSIS; ) Cataract Loss of Vision: Bilateral Hearing Impairment: Hard of Hearing, Bilateral Hearing Aide Cancer: Yes Breast Did You Recieve Any Treatments: Yes What Type of Treatment Did You: Chemotherapy, Radiation, Surgical Intervention PT HAD PARISH FEVER AND A RESULT IS A LITTLE SLOW COGNITIVELY AND HAS HEARING AND VISION LOSS ACCORDING TO HER NIECE DARIELA. Psychosocial: Yes Anxiety Integumentary: Yes (CHICKEN POX, ULCER OF LEFT ANKLE) Blood Disorders: No Family Medical History Heart Disease, Diabetes, Hypertension, Other Conditions/Hx Sepsis Event Evaluation Height, Weight, BMI Height: 5'3.00" Weight: 155lbs. 3.0oz. 70.054136ix; 27.0 BMI Method:Estimated Exam Exam Vital Signs Date Time Temp Pulse Resp B/P (MAP) Pulse Ox O2 Delivery O2 Flow Rate FiO2 06/16/18 10:52 94 2.00 06/16/18 08:45 97.3 06/16/18 08:15 Nasal Cannula 3.00 06/16/18 08:00 97.4 75 20 108/68 (81) 97 High Flow N/C 3.00 06/16/18 07:00 74 06/16/18 04:00 97.3 70 20 145/82 (103) 98 High Flow N/C 3.00 06/16/18 00:45 66 06/16/18 00:39 97.2 65 24 113/56 (75) 97 High Flow N/C 3.00 06/15/18 20:00 Nasal Cannula 3.00 06/15/18 19:59 97.6 88 24 125/69 (87) 96 High Flow N/C 3.00 06/15/18 19:17 Nasal Cannula 2.00 06/15/18 19:00 79 06/15/18 15:59 98.5 76 18 131/73 (92) 97 High Flow N/C 3.00 06/15/18 13:00 75 I & O 06/16/18 07:00 Intake Total 2420 ml Balance 2420 ml Height & Weight Height: 5'3.00" Weight: 155lbs. 3.0oz. 70.651030fu; 27.0 BMI Method:Estimated General Appearance: No Apparent Distress, WD/WN; No Chronically ill HEENT: PERRL/EOMI, Moist Mucous Membranes Respiratory: Chest Non Tender, Normal Breath Sounds, No Accessory Muscle Use, No Respiratory Distress Cardiovascular: Regular Rate, Rhythm Capillary Refill: Less Than 3 Seconds Gastrointestinal: non tender, soft, no organomegaly Extremity: Other (left foot with wound VAC in place, does not appear erythematous or edematous, draining serosanguinous.) Neurologic/Psychiatric: Alert, No Motor/Sensory Deficits, Normal Mood/Affect, drafter topographical II-XII Norm as Tested Skin: Warm/Dry, Other (wound vac in place left lateral foot) Lymphatic: No Adenopathy Results Lab Laboratory Tests 06/15/18 10:15 Assessment/Plan Assessment/Plan Acute PE with known breast cancer -Pt is on Eliquis -Will probably need life long treatment. DM left foot infection Hyperkalemia DM II Breast cancer HÉCTOR RAMOS DO June 16, 2018 12:43
[2018-06-16 12:45] VITALS: BP 108/68
--- NOTE | 2018-06-20 10:53 | NUR ---
AMINA/CHARITO. Tech Writer was [facility] [place] to update that family and caregiving team have requested longterm admission for patient.
== END 2018-06-16 12:45 | disposition home health service (06) | DRG 602 ==
LOC: EDUNIT# 08:48 → ER FS 08:51 → 4TH 11:54
PROVIDERS: ADMIT Family Medicine; ATTEND Family Medicine
PROC: 0JBR0ZX Excision of Left Foot Subcutaneous Tissue and Fascia, Open Approach, Diagnostic (ICD-10-PCS; principal; 2018-06-09)
DX: L03.116 Cellulitis of left lower limb (principal); E11.621 Type 2 diabetes mellitus with foot ulcer; L97.529 Non-pressure chronic ulcer of other part of left foot with unspecified severity; I26.99 Other pulmonary embolism without acute cor pulmonale; F79 Unspecified intellectual disabilities; G61.0 Guillain-Barre syndrome; I10 Essential (primary) hypertension; E87.5 Hyperkalemia; C50.919 Malignant neoplasm of unspecified site of unspecified female breast; K21.9 Gastro-esophageal reflux disease without esophagitis; M10.9 Gout, unspecified; E11.40 Type 2 diabetes mellitus with diabetic neuropathy, unspecified; G47.30 Sleep apnea, unspecified; E78.00 Pure hypercholesterolemia, unspecified; R32 Unspecified urinary incontinence; R31.9 Hematuria, unspecified; G25.81 Restless legs syndrome; R26.9 Unspecified abnormalities of gait and mobility; M19.91 Primary osteoarthritis, unspecified site; H91.93 Unspecified hearing loss, bilateral; Z97.4 Presence of external hearing-aid; F41.9 Anxiety disorder, unspecified; Z92.21 Personal history of antineoplastic chemotherapy; Z92.3 Personal history of irradiation; Z86.19 Personal history of other infectious and parasitic diseases
CPT/HCPCS: 36415; 71275; 73630; 80048; 80053; 81000; 82962; 83605; 84145; 85007; 85025; 85027; 87040; 87081; 88305; 93005; 94761; 96365; 96375

== ENCOUNTER 2018-06-19 11:15 | Emergency (ER) | payer MEDICARE, MEDICAID ==
[~2018-06-19] VITALS: Ht 152.4 cm; Wt 72.6 kg
[~2018-06-19 11:15] MED LIST changes: +APIX5TAB PO; +PRIM50TA33 PO
--- OUTSIDE RECORDS SUMMARY | 2018-06-19 11:31 | XMS REPORT | Encounter Summary ---
Author Author [facility] Organization [facility] Address Unknown Phone Unavailable Care Team Providers Care Machine Lay Out Worker Name Role Phone Parvez Rosario MD Unavailable No Pcp, Na PCP Unavailable Reason for Visit * Reason Comments Appointment Question Encounter Details Care Team Description Date Type Department No Pcp, Na Appointment Question 05/29/2018 Tele[address] 1Pod [place] [address] Social History Date Tobacco Use [...] f/u and how to care for callulitis. M 1245 *Pt. has not established care with [facility] yet. * Telephone Encounter - Radha Elliott - 05/29/2018 9:52 AM CDT Jazzy wallace pt. was seen in the ED on Tuesday and they informed her to schedule an appointment with [facility]. pt. has a provider in [place] and was wondering if that is okay to do instead. LVM [id number] documented in this encounter Plan of Treatment Not on filedocumented as of this encounter Visit Diagnoses Not on filedocumented in this encounter
--- OUTSIDE RECORDS SUMMARY | 2018-06-19 11:31 | XMS REPORT | Clinical Summary ---
Author Author [facility] Organization [facility] Address Unknown Phone Unavailable Care Team Providers Care Naval Science Teacher Name Role Phone Parvez Rosario MD Unavailable No Pcp, Na PCP Unavailable Source Comments Some departments are not documenting in the electronic medical record. If you do not see the information that you expected, contact Release of Information in the Health Information Management department at [phone] for further assistance in locating additional records.[facility] Allergies No Known Allergies Medications End Date [...] No Pcp, Na Appointment Question 05/29/2018 Telephone [facility] Evangelist Rdz DO 05/26/2018 Emergency Emergency Medicine [...] 1.010 1.003 - 1.035 [facility] [place] POC Urine PH POC 5.5 5.0 - [...] City/State/Zipcode Phone Number [facility] [address] [place] [address] * US DOPPLER VENOUS W EXTRM LEFT [...] radiographic evidence of osteomyelitis. Finalized by Mahendra Ngael M.D. on 05/27/2018 7:04 AM. Dictated by Mahendra Nagel M.D. on 05/27/2018 6:57 AM. Performing Organization Address [facility]/Zipcode Phone Number RAD RESULTS * SED RATE (05/26/2018 4:04 PM CDT) Pathologist [facility] Sed Rate -ESR 83 (H) 0 - 30 MM/HR MAIN LAB Specimen Blood Performing Organization Address City/[facility]/Zipcode Phone Number MAIN LAB [address] [place] [address] * CBC AND DIFF (05/26/2018 4:04 PM [...] Basophil Count Specimen Blood Performing Organization Address City/[facility] Phone Number [facility] LAB [address] [place] [address] * C REACTIVE PROTEIN (CRP) (05/26/2018 4:04 PM CDT) Pathologist [facility] C-Reactive 2.28 (H) <1.0 MG/DL [facility] Protein Specimen Blood Performing Organization Address City/[facility] Phone Number MAIN LAB [address] [place] [address] * COMPREHENSIVE METABOLIC PANEL (05/26/2018 4:04 PM [...] (L) >60 mL/min [facility] Comment: [place] The eGFR is not validated for use in drug dosing adjustments.Continue to use estimated creatinine clearance per dosing reference text.Please contact the Clinical Pharmacist for questions. eGFR 59 (L) >60 mL/min [facility] [place] Comment: The eGFR is not validated for use in drug dosing adjustments.Continue to use estimated creatinine clearance per dosing reference text.Please contact the Clinical Pharmacist for questions. Specimen Blood Performing Organization Address City/State/Zipcode Phone Number [facility] [address] [place] [address] * ECG-SCAN (05/26/2018 12:00 AM CDT) Narrative [...] on file. For more information, please contact: [facility] [address] [place] [address]
--- OUTSIDE RECORDS SUMMARY | 2018-06-19 11:32 | XMS REPORT | Encounter Summary ---
Author Author [facility] Organization [facility] Address Unknown Phone Unavailable Care Team Providers Care Lens Grinder And Polisher Name Role Phone Parvez Rosario MD Unavailable No Pcp, Na PCP Unavailable Reason for Visit * Reason Comments Wound Check Diabetic wound to L foot Encounter Details Care Team Description Date Type Department Evangelist Rdz DO [address] [facility] Emergency [place] [address] 05/26/2018 Emergency The [facility] [address] [place] [address] Social History Date Tobacco Use [...] sent through Care Everywhere.* Skin Infection, Cellulitis (TELUGU) documented in this encounter Medications at Time [...] Turbidity POC CLEAR CLEAR-CLEAR Final Urine Specific [place] POC 1.010 1.003 - 1.035 Final Urine [...] (Results Pending) EKG: Sinus rhythm, rate 70, CO 164, QRS 80, QTc 398, no STEMI. [...] Disposition Discharge Dpt [facility], [facility] [address] [id number] [phone] Schedule an appointment as soon as possible [...] 1.010 1.003 - 1.035 [facility] [place] POC Urine PH POC 5.5 5.0 - [...] City/State/Zipcode Phone Number [facility] [address] [place] [address] * US DOPPLER VENOUS W EXTRM LEFT [...] 49 (L) >60 mL/min MAIN LAB Comment: [place] The eGFR is not validated for use in drug dosing adjustments.Continue to use estimated creatinine clearance per dosing reference text.Please contact the Clinical Pharmacist for questions. eGFR 59 (L) >60 mL/min [facility] [place] Comment: The eGFR is not validated for use in drug dosing adjustments.Continue to use estimated creatinine clearance per dosing reference text.Please contact the Clinical Pharmacist for questions. Specimen Blood Performing Organization Address City/[facility]/Zipcode Phone Number [facility] [address] [place] [address] * SED RATE (05/26/2018 4:04 PM CDT) Sed Rate -ESR 83 (H) 0 - 30 MM/HR [facility] Specimen Blood Performing Organization Address City/[facility]/Zipcode Phone Number [facility] [address] [place] [address] * C REACTIVE PROTEIN (CRP) (05/26/2018 4:04 PM CDT) C-Reactive 2.28 (H) <1.0 MG/DL [facility] Protein Specimen Blood Performing Organization Address City/[facility]/Zipcode Phone Number [facility] [address] [place] [phone] * CBC AND DIFF (05/26/2018 4:04 PM CDT) White Blood 6.8 4.5 - 11.0 K/UL [facility] Cells RBC 4.10 4.0 - [...] Address City/State/Zipcode Phone Number [facility] [address] [place] [address] * ECG-SCAN (05/26/2018 12:00 AM CDT) Narrative [...]
--- OUTSIDE RECORDS SUMMARY | 2018-06-19 11:35 | XMS REPORT | Continuity of Care Document ---
Author Organization Unknown Address Unknown Allergies Active Description Code Type Severity Reaction Onset Reported/Identified Relationship to Patient Clinical Status Yes No Known Drug Allergies [id number] Drug Allergy Unknown N/A 06/11/2018 Medications There is no data. Problems Date [...] 12/02/2015 DANNY PADILLA N Ot Z79.899 OTHER PENITENTIARY (CURRENT) DRUG THERAPY 12/02/2015 DANNY PADILLA N [...] 12/08/2015 DANNY PADILLA N Ot Z79.899 OTHER AEROGRAPHER (CURRENT) DRUG THERAPY 12/08/2015 RANDYDANNY SHUKLA N [...] 12/23/2015 DANNY PADILLA N Ot Z79.899 OTHER AEROGRAPHER (CURRENT) DRUG THERAPY 12/23/2015 DANNY PADILLA N [...] 12/31/2015 DANNY PADILLA N Ot Z79.899 OTHER AEROGRAPHER (CURRENT) DRUG THERAPY 12/31/2015 RANDYDANNY SHUKLA N [...] FO 12/10/2016 DANNY PADILLA Ot Z79.899 OTHER AEROGRAPHER (CURRENT) DRUG THERAPY 12/10/2016 DANNY PADILLA Kodi [...] 01/23/2017 DANNY PADILLA N Ot Z79.899 OTHER PENITENTIARY (CURRENT) DRUG THERAPY 01/23/2017 DANNY PADILLA N [...] 01/23/2017 DANNY PADILLA N Ot Z79.899 OTHER AEROGRAPHER (CURRENT) DRUG THERAPY 01/23/2017 DANNY PADILLA N Ot Z85.3 PERSONAL HISTORY OF MALIGNANT NEOPLASM O 01/23/2017 DANNY PADILLA N Ot Z92.3 PERSONAL HISTORY OF IRRADIATION 01/23/2017 DANNY APDILLA N Ot E08.40 DIABETES DUE TO UNDERLYING CONDITION W D 01/23/2017 DANNY PADILLA N Ot G62.9 POLYNEUROPATHY, UNSPECIFIED 01/23/2017 DANNY PADILLA N Ot Z08 ENCNTR FOR FOLLOW-UP EXAM AFTER TRTMT FO 01/23/2017 DANNY PADILLA N Ot Z79.899 OTHER AEROGRAPHER (CURRENT) DRUG THERAPY 01/23/2017 DANNY PADILLA N [...] EPISTAXIS 01/24/2017 MARYANN PENG MD Ot Z79.82 AEROGRAPHER (CURRENT) USE OF ASPIRIN 01/26/2017 MARYANN PENG [...] EPISTAXIS 01/26/2017 MARYANN PENG MD Ot Z79.82 PENITENTIARY (CURRENT) USE OF ASPIRIN 02/02/2017 DANNY PADILLA Ot E08.40 DIABETES DUE TO UNDERLYING CONDITION W D 02/02/2017 DANNY PADILLA Ot G62.9 POLYNEUROPATHY, UNSPECIFIED 02/02/2017 DANNY PADILLA Ot Z08 ENCNTR FOR FOLLOW-UP EXAM AFTER TRTMT FO 02/02/2017 DANNY PADILLA Ot Z79.899 OTHER PENITENTIARY (CURRENT) DRUG THERAPY 02/02/2017 DANNY PADILLA Ot [...] 02/04/2017 RANDY REGINALDOKALLI N Ot Z79.899 OTHER AEROGRAPHER (CURRENT) DRUG THERAPY 02/04/2017 RANDY DANNY N [...] 03/09/2017 RANDY DANNY N Ot Z79.899 OTHER AEROGRAPHER (CURRENT) DRUG THERAPY 03/09/2017 RANDY DANNY N [...] 03/10/2017 RANDY DANNY N Ot Z79.899 OTHER AEROGRAPHER (CURRENT) DRUG THERAPY 03/10/2017 RANDY DANNY N [...] 03/07/2018 REGINALDO PADILLAKALLI N Ot Z79.899 OTHER AEROGRAPHER (CURRENT) DRUG THERAPY 03/07/2018 RANDY DANNY N [...] 03/07/2018 RANDY REGINALDOKALLI N Ot Z79.899 OTHER AEROGRAPHER (CURRENT) DRUG THERAPY 03/07/2018 RANDY DANNY N [...] 03/07/2018 DANNY PADILLA Kodi Ot Z79.899 OTHER AEROGRAPHER (CURRENT) DRUG THERAPY 03/07/2018 DANNY PADILLA Kodi [...] 03/08/2018 DANNY PADILLA Kodi Ot Z79.899 OTHER AEROGRAPHER (CURRENT) DRUG THERAPY 03/08/2018 RANDY, DANNY Mariee Ot Z85.3 PERSONAL HISTORY OF MALIGNANT NEOPLASM O 03/08/2018 DANNY PADILLA N Ot Z92.3 PERSONAL HISTORY OF IRRADIATION 03/08/2018 DANNY PADILLA Ot E08.40 DIABETES DUE TO UNDERLYING CONDITION W D 03/08/2018 DANNY PADILLA Ot G62.9 POLYNEUROPATHY, UNSPECIFIED 03/08/2018 DANNY PADILLA Ot Z08 ENCNTR FOR FOLLOW-UP EXAM AFTER TRTMT FO 03/08/2018 DANNY PADILLA Ot Z79.899 OTHER AEROGRAPHER (CURRENT) DRUG THERAPY 03/08/2018 DANNY PADILLA N Ot Z85.3 PERSONAL HISTORY OF MALIGNANT NEOPLASM O 03/08/2018 DANNY PADILLA N Ot Z92.3 PERSONAL HISTORY OF IRRADIATION 03/08/2018 DANNY PADILLA Ot E08.40 DIABETES DUE TO UNDERLYING CONDITION W D 03/08/2018 DANNY PADILLA Ot G62.9 POLYNEUROPATHY, UNSPECIFIED 03/08/2018 DANNY PADILLA N Ot Z08 ENCNTR FOR FOLLOW-UP EXAM AFTER TRTMT FO 03/08/2018 DANNY PADILLA Ot Z79.899 OTHER PENITENTIARY (CURRENT) DRUG THERAPY 03/08/2018 DANNY PADILLA N [...] PAIN 05/07/2018 RON LOPEZ MD, Ot Z79.4 AEROGRAPHER (CURRENT) USE OF INSULIN 05/07/2018 RON LOPEZ MD Ot Z79.51 PENITENTIARY (CURRENT) USE OF INHALED STERO 05/07/2018 RON LOPEZ MD, Ot Z79.82 PENITENTIARY (CURRENT) USE OF ASPIRIN 05/07/2018 RON LOPEZ [...] 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 05/11/2018 RON LOPEZ MD Ot I10 ESSENTIAL (PRIMARY) HYPERTENSION 05/11/2018 RON LOPEZ MD, Ot K59.00 CONSTIPATION, UNSPECIFIED 05/11/2018 RON LOPEZ MD, Ot N39.0 URINARY TRACT INFECTION, SITE NOT SPECIF 05/11/2018 RON LOPEZ MD, Ot N63.10 UNSPECIFIED LUMP IN THE RIGHT BREAST, UN 05/11/2018 RON LOPEZ MD, Ot R10.31 RIGHT LOWER QUADRANT PAIN 05/11/2018 RON LOPEZ MD, Ot Z79.4 PENITENTIARY (CURRENT) USE OF INSULIN 05/11/2018 RON LOPEZ MD, Ot Z79.51 PENITENTIARY (CURRENT) USE OF INHALED STERO 05/11/2018 RON LOPEZ MD, Ot Z79.82 PENITENTIARY (CURRENT) USE OF ASPIRIN 05/11/2018 RON LOPEZ MD, Ot Z85.3 PERSONAL HISTORY OF MALIGNANT NEOPLASM O 05/11/2018 RON LOPEZ MD, Ot Z87.19 PERSONAL HISTORY OF OTHER DISEASES OF TH 05/11/2018 RON LOPEZ MD Ot Z92.21 PERSONAL HISTORY OF ANTINEOPLASTIC CHEMO 05/11/2018 RON LOPEZ MD, Ot Z98.890 OTHER SPECIFIED POSTPROCEDURAL STATES 05/15/2018 ERENDIRA KEANE MD Ot E87.5 HYPERKALEMIA 05/17/2018 ERENDIRA KEANE MD Ot E87.5 HYPERKALEMIA 05/17/2018 ERENDIRA KEANE MD Ot E87.5 HYPERKALEMIA 06/02/2018 ERENDIRA KEANE MD Ot E87.5 HYPERKALEMIA 06/08/2018 ERENDIRA KEANE MD Ot E87.5 HYPERKALEMIA 06/11/2018 DANNY PADILLA Ot E08.40 DIABETES DUE TO UNDERLYING CONDITION W D 06/11/2018 DANNY PADILLA Ot G62.9 POLYNEUROPATHY, UNSPECIFIED 06/11/2018 DANNY PADILLA Ot Z08 ENCNTR FOR FOLLOW-UP EXAM AFTER TRTMT FO 06/11/2018 DANNY PADILLA Ot Z79.899 OTHER AEROGRAPHER (CURRENT) DRUG THERAPY 06/11/2018 DANNY PADILLA Ot Z85.3 PERSONAL HISTORY OF MALIGNANT NEOPLASM O 06/11/2018 DANNY PADILLA Ot Z92.3 PERSONAL HISTORY OF IRRADIATION Procedures [...] culture - 05/07/18 20:21 Bacterial urine culture [id number] NRG COLONY COUNT >100,000/ML NRG FTX;REPORTABLE SENSITIVITY REPORTED 05/10/18 15:05 NRG FREE TEXT ENTRY 2 ID REPORTED 05/09/18 16:05 NRG RML Sensitivity Panel - 05/07/18 20:21 Gentamicin [...] plasma calcium measurement (mass/volume) 9.8 mg/dL 8.5-10.1 Complete blood count (CBC) with automated white blood cell (WBC) differential - 06/11/18 10:00 Blood leukocytes automated count (number/volume) 4.3 10*3/uL 4.3-11.0 Blood erythrocytes automated count (number/volume) 4.03 10*6/uL 4.35-5.85 Venous blood hemoglobin measurement (mass/volume) 13.4 g/dL 11.5-16.0 Blood hematocrit (volume fraction) 40 % 35-52 Automated erythrocyte mean corpuscular volume 99 [foz_us] 80-99 Automated erythrocyte mean corpuscular hemoglobin (mass per erythrocyte) 33 pg 25-34 Automated erythrocyte mean corpuscular hemoglobin concentration measurement ( mass/volume) 34 g/dL 32-36 Automated erythrocyte distribution width ratio 13.2 % 10.0-14.5 Automated blood platelet count (count/volume) 171 10*3/uL 130-400 Automated blood platelet mean volume measurement 9.7 [foz_us] 7.4-10.4 Automated blood neutrophils/100 leukocytes 55 % 42-75 Automated blood lymphocytes/100 leukocytes 24 % 12-44 Blood monocytes/100 leukocytes 14 % 0-12 Automated blood eosinophils/100 leukocytes 4 % 0-10 Automated blood basophils/100 leukocytes 1 % 0-10 Blood neutrophils automated count (number/volume) 2.3 10*3 1.8-7.8 Blood lymphocytes automated count (number/volume) 1.0 10*3 1.0-4.0 Blood monocytes automated count (number/volume) 0.6 10*3 0.0-1.0 Automated eosinophil count 0.2 10*3/uL 0.0-0.3 Automated blood basophil count (count/volume) 0.1 10*3/uL 0.0-0.1 Comprehensive metabolic panel - 06/11/18 10:00 Serum or plasma sodium measurement (moles/volume) 138 mmol/L 135-145 Serum or plasma potassium measurement (moles/volume) 6.6 mmol/L 3.6-5.0 Serum or plasma chloride measurement (moles/volume) 100 mmol/L 98-107 Carbon dioxide 23 mmol/L 21-32 Serum or plasma anion gap determination (moles/volume) 15 mmol/L 5-14 Serum or plasma urea nitrogen measurement (mass/volume) 45 mg/dL 7-18 Serum or plasma creatinine measurement (mass/volume) 0.86 mg/dL 0.60-1.30 Serum or plasma urea nitrogen/creatinine mass ratio 52 NRG Serum or plasma creatinine measurement with calculation of estimated glomerular filtration rate > NRG Serum or plasma glucose measurement (mass/volume) 98 mg/dL 70-105 Serum or plasma calcium measurement (mass/volume) 9.6 mg/dL 8.5-10.1 Serum or plasma total bilirubin measurement (mass/volume) 0.3 mg/dL 0.1-1.0 Serum or plasma alkaline phosphatase measurement (enzymatic activity/volume) 82 U/L 40-136 Serum or plasma aspartate aminotransferase measurement (enzymatic activity/ volume) 52 U/L 5-34 Serum or plasma alanine aminotransferase measurement (enzymatic activity/volume ) 40 U/L 0-55 Serum or plasma protein measurement (mass/volume) 7.9 g/dL 6.4-8.2 Serum or plasma albumin measurement (mass/volume) 4.4 g/dL 3.2-4.5 CALCIUM CORRECTED 9.3 mg/dL 8.5-10.1 Blood lactic acid measurement (moles/volume) - 06/11/18 10:00 Blood lactic acid measurement (moles/volume) 1.08 mmol/L 0.50-2.00 PROCALCITONIN (PCT) - 06/11/18 10:00 PROCALCITONIN (PCT) 0.04 ng/mL <0.10 Bacterial blood culture - 06/11/18 10:00 Bacterial blood culture NG NRG Bacterial blood culture - 06/11/18 10:28 Bacterial blood culture NG NRG Complete urinalysis with reflex to culture - 06/11/18 11:11 Urine color determination YELLOW NRG Urine clarity determination CLEAR NRG Urine pH measurement by test strip 6.0 5-9 Specific gravity of urine by test strip < 1.016-1.022 Urine protein assay by test strip, semi-quantitative NEGATIVE NEGATIVE Urine glucose detection by automated test strip NEGATIVE NEGATIVE Erythrocytes detection in urine sediment by light microscopy NEGATIVE NEGATIVE Urine ketones detection by automated test strip NEGATIVE NEGATIVE Urine nitrite detection by test strip NEGATIVE NEGATIVE Urine total bilirubin detection by test strip NEGATIVE NEGATIVE Urine urobilinogen measurement by automated test strip (mass/volume) 0.2 mg/dL NORMAL Urine leukocyte esterase detection by dipstick TRACE NEGATIVE Automated urine sediment erythrocyte count by microscopy (number/high power field) NONE NRG Automated urine sediment leukocyte count by microscopy (number/high power field ) RARE NRG Bacteria detection in urine sediment by light microscopy NONE NRG Squamous epithelial cells detection in urine sediment by light microscopy RARE NRG Crystals detection in urine sediment by light microscopy NONE NRG Casts detection in urine sediment by light microscopy NONE NRG Mucus detection in urine sediment by light microscopy NEGATIVE NRG Complete urinalysis with reflex to culture NO NRG Capillary blood glucose measurement by glucometer (mass/volume) - 06/11/18 16: 48 Capillary blood glucose measurement by glucometer (mass/volume) 131 mg/dL 70-110 Capillary blood glucose measurement by glucometer (mass/volume) - 06/11/18 21: 56 Capillary blood glucose measurement by glucometer (mass/volume) 109 mg/dL 70-110 Capillary blood glucose measurement by glucometer (mass/volume) - 06/12/18 05: 05 Capillary blood glucose measurement by glucometer (mass/volume) 111 mg/dL 70-110 Whole blood basic metabolic panel - 06/12/18 05:35 Serum or plasma sodium measurement (moles/volume) 139 mmol/L 135-145 Serum or plasma potassium measurement (moles/volume) 4.5 mmol/L 3.6-5.0 Serum or plasma chloride measurement (moles/volume) 107 mmol/L 98-107 Carbon dioxide 21 mmol/L 21-32 Serum or plasma anion gap determination (moles/volume) 11 mmol/L 5-14 Serum or plasma urea nitrogen measurement (mass/volume) 32 mg/dL 7-18 Serum or plasma creatinine measurement (mass/volume) 0.81 mg/dL 0.60-1.30 Serum or plasma urea nitrogen/creatinine mass ratio 40 NRG Serum or plasma creatinine measurement with calculation of estimated glomerular filtration rate > NRG Serum or plasma glucose measurement (mass/volume) 103 mg/dL 70-105 Serum or plasma calcium measurement (mass/volume) 9.7 mg/dL 8.5-10.1 Capillary blood glucose measurement by glucometer (mass/volume) - 06/12/18 11: 28 Capillary blood glucose measurement by glucometer (mass/volume) 176 mg/dL 70-110 Capillary blood glucose measurement by glucometer (mass/volume) - 06/12/18 15: 50 Capillary blood glucose measurement by glucometer (mass/volume) 135 mg/dL 70-110 Capillary blood glucose measurement by glucometer (mass/volume) - 06/12/18 20: 14 Capillary blood glucose measurement by glucometer (mass/volume) 112 mg/dL 70-110 Capillary blood glucose measurement by glucometer (mass/volume) - 06/13/18 05: 17 Capillary blood glucose measurement by glucometer (mass/volume) 101 mg/dL 70-110 Complete blood count (CBC) with automated white blood cell (WBC) differential - 06/13/18 05:35 Blood leukocytes automated count (number/volume) 4.8 10*3/uL 4.3-11.0 Blood erythrocytes automated count (number/volume) 3.70 10*6/uL 4.35-5.85 Venous blood hemoglobin measurement (mass/volume) 12.2 g/dL 11.5-16.0 Blood hematocrit (volume fraction) 37 % 35-52 Automated erythrocyte mean corpuscular volume 100 [foz_us] 80-99 Automated erythrocyte mean corpuscular hemoglobin (mass per erythrocyte) 33 pg 25-34 Automated erythrocyte mean corpuscular hemoglobin concentration measurement ( mass/volume) 33 g/dL 32-36 Automated erythrocyte distribution width ratio 13.5 % 10.0-14.5 Automated blood platelet count (count/volume) 149 10*3/uL 130-400 Automated blood platelet mean volume measurement 9.5 [foz_us] 7.4-10.4 Automated blood neutrophils/100 leukocytes 60 % 42-75 Automated blood lymphocytes/100 leukocytes 21 % 12-44 Blood monocytes/100 leukocytes 13 % 0-12 Automated blood eosinophils/100 leukocytes 5 % 0-10 Automated blood basophils/100 leukocytes 0 % 0-10 Blood neutrophils automated count (number/volume) 2.9 10*3 1.8-7.8 Blood lymphocytes automated count (number/volume) 1.0 10*3 1.0-4.0 Blood monocytes automated count (number/volume) 0.6 10*3 0.0-1.0 Automated eosinophil count 0.2 10*3/uL 0.0-0.3 Automated blood basophil count (count/volume) 0.0 10*3/uL 0.0-0.1 Comprehensive metabolic panel - 06/13/18 05:35 Serum or plasma sodium measurement (moles/volume) 139 mmol/L 135-145 Serum or plasma potassium measurement (moles/volume) 4.6 mmol/L 3.6-5.0 Serum or plasma chloride measurement (moles/volume) 110 mmol/L 98-107 Carbon dioxide 19 mmol/L 21-32 Serum or plasma anion gap determination (moles/volume) 10 mmol/L 5-14 Serum or plasma urea nitrogen measurement (mass/volume) 21 mg/dL 7-18 Serum or plasma creatinine measurement (mass/volume) 0.74 mg/dL 0.60-1.30 Serum or plasma urea nitrogen/creatinine mass ratio 28 NRG Serum or plasma creatinine measurement with calculation of estimated glomerular filtration rate > NRG Serum or plasma glucose measurement (mass/volume) 107 mg/dL 70-105 Serum or plasma calcium measurement (mass/volume) 8.9 mg/dL 8.5-10.1 Serum or plasma total bilirubin measurement (mass/volume) 0.3 mg/dL 0.1-1.0 Serum or plasma alkaline phosphatase measurement (enzymatic activity/volume) 62 U/L 40-136 Serum or plasma aspartate aminotransferase measurement (enzymatic activity/ volume) 54 U/L 5-34 Serum or plasma alanine aminotransferase measurement (enzymatic activity/volume ) 49 U/L 0-55 Serum or plasma protein measurement (mass/volume) 6.4 g/dL 6.4-8.2 Serum or plasma albumin measurement (mass/volume) 3.8 g/dL 3.2-4.5 CALCIUM CORRECTED 9.1 mg/dL 8.5-10.1 Capillary blood glucose measurement by glucometer (mass/volume) - 06/13/18 11: 07 Capillary blood glucose measurement by glucometer (mass/volume) 100 mg/dL 70-110 Capillary blood glucose measurement by glucometer (mass/volume) - 06/13/18 15: 45 Capillary blood glucose measurement by glucometer (mass/volume) 125 mg/dL 70-110 Methicillin resistant Staphylococcus aureus (MRSA) screening culture - 16:50 MRSA SCREEN RESULT MRSA ISOLATED NR Capillary blood glucose measurement by glucometer (mass/volume) - 06/13/18 19: 50 Capillary blood glucose measurement by glucometer (mass/volume) 147 mg/dL 70-110 Complete blood count (CBC) with automated white blood cell (WBC) differential - 06/14/18 05:40 Blood leukocytes automated count (number/volume) 4.8 10*3/uL 4.3-11.0 Blood erythrocytes automated count (number/volume) 3.84 10*6/uL 4.35-5.85 Venous blood hemoglobin measurement (mass/volume) 12.6 g/dL 11.5-16.0 Blood hematocrit (volume fraction) 38 % 35-52 Automated erythrocyte mean corpuscular volume 99 [foz_us] 80-99 Automated erythrocyte mean corpuscular hemoglobin (mass per erythrocyte) 33 pg 25-34 Automated erythrocyte mean corpuscular hemoglobin concentration measurement ( mass/volume) 33 g/dL 32-36 Automated erythrocyte distribution width ratio 13.1 % 10.0-14.5 Automated blood platelet count (count/volume) 141 10*3/uL 130-400 Automated blood platelet mean volume measurement 9.8 [foz_us] 7.4-10.4 Automated blood neutrophils/100 leukocytes 62 % 42-75 Automated blood lymphocytes/100 leukocytes 21 % 12-44 Blood monocytes/100 leukocytes 13 % 0-12 Automated blood eosinophils/100 leukocytes 4 % 0-10 Automated blood basophils/100 leukocytes 1 % 0-10 Blood neutrophils automated count (number/volume) 2.9 10*3 1.8-7.8 Blood lymphocytes automated count (number/volume) 1.0 10*3 1.0-4.0 Blood monocytes automated count (number/volume) 0.6 10*3 0.0-1.0 Automated eosinophil count 0.2 10*3/uL 0.0-0.3 Automated blood basophil count (count/volume) 0.0 10*3/uL 0.0-0.1 Comprehensive metabolic panel - 06/14/18 05:40 Serum or plasma sodium measurement (moles/volume) 138 mmol/L 135-145 Serum or plasma potassium measurement (moles/volume) 4.7 mmol/L 3.6-5.0 Serum or plasma chloride measurement (moles/volume) 108 mmol/L 98-107 Carbon dioxide 20 mmol/L 21-32 Serum or plasma anion gap determination (moles/volume) 10 mmol/L 5-14 Serum or plasma urea nitrogen measurement (mass/volume) 16 mg/dL 7-18 Serum or plasma creatinine measurement (mass/volume) 0.71 mg/dL 0.60-1.30 Serum or plasma urea nitrogen/creatinine mass ratio 23 NRG Serum or plasma creatinine measurement with calculation of estimated glomerular filtration rate > NRG Serum or plasma glucose measurement (mass/volume) 106 mg/dL 70-105 Serum or plasma calcium measurement (mass/volume) 9.5 mg/dL 8.5-10.1 Serum or plasma total bilirubin measurement (mass/volume) 0.3 mg/dL 0.1-1.0 Serum or plasma alkaline phosphatase measurement (enzymatic activity/volume) 57 U/L 40-136 Serum or plasma aspartate aminotransferase measurement (enzymatic activity/ volume) 50 U/L 5-34 Serum or plasma alanine aminotransferase measurement (enzymatic activity/volume ) 50 U/L 0-55 Serum or plasma protein measurement (mass/volume) 6.4 g/dL 6.4-8.2 Serum or plasma albumin measurement (mass/volume) 3.8 g/dL 3.2-4.5 CALCIUM CORRECTED 9.7 mg/dL 8.5-10.1 Capillary blood glucose measurement by glucometer (mass/volume) - 06/14/18 06: 04 Capillary blood glucose measurement by glucometer (mass/volume) 113 mg/dL 70-110 Capillary blood glucose measurement by glucometer (mass/volume) - 06/14/18 12: 16 Capillary blood glucose measurement by glucometer (mass/volume) 105 mg/dL 70-110 Capillary blood glucose measurement by glucometer (mass/volume) - 06/14/18 17: 35 Capillary blood glucose measurement by glucometer (mass/volume) 123 mg/dL 70-110 Capillary blood glucose measurement by glucometer (mass/volume) - 06/14/18 21: 13 Capillary blood glucose measurement by glucometer (mass/volume) 124 mg/dL 70-110 Capillary blood glucose measurement by glucometer (mass/volume) - 06/15/18 06: 10 Capillary blood glucose measurement by glucometer (mass/volume) 108 mg/dL 70-110 Complete blood count (CBC) with automated white blood cell (WBC) differential - 06/15/18 10:15 Blood leukocytes automated count (number/volume) 9.9 10*3/uL 4.3-11.0 Blood erythrocytes automated count (number/volume) 4.21 10*6/uL 4.35-5.85 Venous blood hemoglobin measurement (mass/volume) 13.8 g/dL 11.5-16.0 Blood hematocrit (volume fraction) 41 % 35-52 Automated erythrocyte mean corpuscular volume 98 [foz_us] 80-99 Automated erythrocyte mean corpuscular hemoglobin (mass per erythrocyte) 33 pg 25-34 Automated erythrocyte mean corpuscular hemoglobin concentration measurement ( mass/volume) 34 g/dL 32-36 Automated erythrocyte distribution width ratio 13.3 % 10.0-14.5 Automated blood platelet count (count/volume) 182 10*3/uL 130-400 Automated blood platelet mean volume measurement 9.3 [foz_us] 7.4-10.4 Automated blood neutrophils/100 leukocytes 85 % 42-75 Automated blood lymphocytes/100 leukocytes 8 % 12-44 Blood monocytes/100 leukocytes 7 % 0-12 Automated blood eosinophils/100 leukocytes 0 % 0-10 Automated blood basophils/100 leukocytes 0 % 0-10 Blood neutrophils automated count (number/volume) 8.5 10*3 1.8-7.8 Blood lymphocytes automated count (number/volume) 0.8 10*3 1.0-4.0 Blood monocytes automated count (number/volume) 0.7 10*3 0.0-1.0 Automated eosinophil count 0.0 10*3/uL 0.0-0.3 Automated blood basophil count (count/volume) 0.0 10*3/uL 0.0-0.1 Comprehensive metabolic panel - 06/15/18 10:15 Serum or plasma sodium measurement (moles/volume) 136 mmol/L 135-145 Serum or plasma potassium measurement (moles/volume) 5.0 mmol/L 3.6-5.0 Serum or plasma chloride measurement (moles/volume) 107 mmol/L 98-107 Carbon dioxide 21 mmol/L 21-32 Serum or plasma anion gap determination (moles/volume) 8 mmol/L 5-14 Serum or plasma urea nitrogen measurement (mass/volume) 17 mg/dL 7-18 Serum or plasma creatinine measurement (mass/volume) 0.78 mg/dL 0.60-1.30 Serum or plasma urea nitrogen/creatinine mass ratio 22 NRG Serum or plasma creatinine measurement with calculation of estimated glomerular filtration rate > NRG Serum or plasma glucose measurement (mass/volume) 157 mg/dL 70-105 Serum or plasma calcium measurement (mass/volume) 9.4 mg/dL 8.5-10.1 Serum or plasma total bilirubin measurement (mass/volume) 0.3 mg/dL 0.1-1.0 Serum or plasma alkaline phosphatase measurement (enzymatic activity/volume) 63 U/L 40-136 Serum or plasma aspartate aminotransferase measurement (enzymatic activity/ volume) 33 U/L 5-34 Serum or plasma alanine aminotransferase measurement (enzymatic activity/volume ) 48 U/L 0-55 Serum or plasma protein measurement (mass/volume) 6.7 g/dL 6.4-8.2 Serum or plasma albumin measurement (mass/volume) 3.9 g/dL 3.2-4.5 CALCIUM CORRECTED 9.5 mg/dL 8.5-10.1 Blood manual differential performed detection - 06/15/18 10:15 Blood monocytes/100 leukocytes 6 % NRG Manual blood segmented neutrophils/100 leukocytes 82 % NRG Blood band neutrophils/100 leukocytes 5 % NRG Manual blood lymphocytes/100 leukocytes 7 % NRG Manual eosinophils/100 leukocytes in nose 0 % NRG Manual blood basophils/100 leukocytes 0 % NRG Blood erythrocyte morphology finding identification NORMAL NRG Capillary blood glucose measurement by glucometer (mass/volume) - 06/15/18 11: 36 Capillary blood glucose measurement by glucometer (mass/volume) 122 mg/dL 70-110 Capillary blood glucose measurement by glucometer (mass/volume) - 06/15/18 16: 23 Capillary blood glucose measurement by glucometer (mass/volume) 99 mg/dL 70-110 Capillary blood glucose measurement by glucometer (mass/volume) - 06/15/18 21: 44 Capillary blood glucose measurement by glucometer (mass/volume) 112 mg/dL 70-110 Capillary blood glucose measurement by glucometer (mass/volume) - 06/16/18 04: 56 Capillary blood glucose measurement by glucometer (mass/volume) 77 mg/dL 70-110 Capillary blood glucose measurement by glucometer (mass/volume) - 06/16/18 11: 15 Capillary blood glucose measurement by glucometer (mass/volume) 90 mg/dL 70-110 Encounters ACCT No. Visit Date/Time Discharge Status Pt. Type Provider Facility Loc./Unit Complaint [id number] 08/25/2017 14:55:02 ACT Unknown Ruiz CARRILLO, Carlos Gamez [id number] 06/02/2018 11:00:00 06/02/2018 23:59:59 CLS Outpatient ERENDIRA KEANE [facility] [id number] 06/11/2018 11:54:00 06/16/2018 12:45:00 DIS Inpatient CHU CARRILLO, ABHISHEK Gonzalez [facility] 4TH LT FOOT WOUND [id number] 05/12/2018 13:33:00 05/12/2018 23:59:59 CLS Outpatient ERENDIRA KEANE MD [facility] LAB FS [id number] 05/07/2018 19:21:00 05/07/2018 23:20:00 DIS Emergency JESSICA CARRILLO, RON [place] [facility] ER FS RT SIDE PAIN [id number] 03/07/2018 23:02:00 03/10/2018 13:30:00 DIS Inpatient DANIAL CARRILLO, BENJAMÍN Nayak [facility] 4TH SMALL BOWEL ILEUS [id number] 03/10/2017 00:13:00 03/10/2017 23:59:59 CLS Preadmit DANNY PADILLA N [facility] ONC [id number] 12/09/2016 12:14:00 03/09/2017 00:01:00 DIS Outpatient DANNY PADILLA N [facility] ONC [id number] 01/23/2017 07:06:00 01/24/2017 09:35:00 DIS Outpatient DANISH CARRILLO, MARYANN Spicer [facility] NOSE BLEED [id number] 12/02/2015 10:42:00 12/02/2015 23:59:59 CLS Outpatient DANNY PADILLA N [facility] FS [id number] 11/26/2014 11:00:00 11/26/2014 23:59:59 CLS Outpatient DANNY PADILLA N [facility] FS [id number] 11/20/2013 10:16:00 11/20/2013 23:59:59 CLS Outpatient DANNY PADILLA N [facility] FS [id number] 11/28/2012 12:59:00 11/28/2012 23:59:59 CLS Outpatient DANNY PADILLA N [facility] FS [id number] 11/30/2011 13:04:00 Document Registration [id number] 11/03/2010 12:51:00 Document Registration [id number] 11/04/2009 13:41:00 Document Registration
[2018-06-19] MEDS ORDERED: AMOX875T2 PO (12:40)
--- NOTE | 2018-06-19 12:40 | ED EENT ---
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 PT HAS HX OF NOSE BLEEDS. History of Present Illness Date Seen by Provider: June 19, 2018 Allergies and Home Medications Allergies Coded Allergies: No Known Drug Allergies (Unverified , 06/11/18) Home Medications Allopurinol 100 Mg Tablet, 100 MG PO DAILY, (Reported) Alprazolam 0.5 Mg Tablet, 0.5 MG PO BID, (Reported) Apixaban 5 Mg Tablet, 10 MG PO BID TAKE 2 TABLETS TWICE DAILY X 7 DAYS THEN TAKE 1 TABLET TWICE DAILY Prescribed by: BRIANNA HERNANDEZ on 06/16/18 1134 Aspirin 81 Mg Tablet.dr, 81 MG PO HS, (Reported) Calcium Carbonate 600 Mg Tablet, 600 MG PO DAILY, (Reported) Fluticasone Propionate 16 Gm [place].susp, 2 SPRAYS NS DAILY PRN for ALLERGIES, ( Reported) Gabapentin 600 Mg Tablet, 600 MG PO QID, (Reported) Gemfibrozil 600 Mg Tablet, 600 MG PO BID, (Reported) Glipizide 5 Mg Tablet, 5 MG PO BID, (Reported) Mirabegron 25 Mg Tab.er.24h, 25 MG PO DAILY, (Reported) Montelukast Sodium 10 Mg Tablet, 10 MG PO HS, (Reported) Multivitamin 1 Each Tablet, 1 TAB PO DAILY, (Reported) Omeprazole 20 Mg Capsule.dr, 20 MG PO DAILY, (Reported) Primidone 50 Mg Tablet, 100 MG PO BID, (Reported) TAKES 2 (50MG) TABLETS Sertraline HCl 50 Mg Tablet, 50 MG PO DAILY, (Reported) Tramadol HCl 50 Mg Tablet, 50 MG PO Q6H PRN for PAIN-MODERATE Prescribed by: BRIANNA HERNANDEZ on 06/16/18 1031 Valsartan 160 Mg Tablet, 80 MG PO DAILY, (Reported) TAKES 1/2 (160MG) TABLET Past Dqdolwq-Ueikee-Nrykfq Hx Patient Social History Alcohol Use: Denies Use Recreational Drug Use: No Type Used: Cigarettes 2nd Hand Smoke Exposure: No Recent Foreign Travel: No Contact w/Someone Who Travel: No Recent Infectious Disease Expo: No Recent Hopitalizations: No Physical Abuse: No Sexual Abuse: No Mistreated: No Fear: No Seasonal Allergies Seasonal Allergies: No Past Medical History Surgeries: Yes (CATARACTS) Abdominal, Bowel Surgery, Breast, Gallbladder Respiratory: Yes Sleep Apnea Cardiac: Yes High Cholesterol, Hypertension Neurological: Yes (GUILLAIN-BARRE) 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 Sexually Transmitted Disease: Yes (GONORRHEA) Genitourinary: Yes (INCONTINENCE) Gastrointestinal: Yes Gastrointestinal Bleed Musculoskeletal: Yes (RESTLESS LEGS; GAIT DISTURBANCE) Arthritis Endocrine: Yes Diabetes, Non-Insulin dep HEENT: Yes (NOSEBLEEDS; PERTUSSIS; ) Cataract Loss of Vision: Bilateral Hearing Impairment: Hard of Hearing, Bilateral Hearing Aide Cancer: Yes Breast Did You Recieve Any Treatments: Yes What Type of Treatment Did You: Chemotherapy, Radiation, Surgical Intervention Psychosocial: Yes Anxiety Integumentary: Yes (CHICKEN POX, ULCER OF LEFT ANKLE) Blood Disorders: No Family Medical History Heart Disease, Diabetes, Hypertension, Other Conditions/Hx Physical Exam Vital Signs Vital Signs - First Documented 06/19/18 11:28 Temp 99.2 Pulse 92 Resp 18 B/P (MAP) 128/64 (85) Height, Weight, BMI Height: 5'3.00" Weight: 160lbs. 3.0oz. 72.888453nj; 27.0 BMI Method:Estimated Progress/Results/Core Measures Results/Orders Vital Signs/I&O 06/19/18 11:28 Temp 99.2 Pulse 92 Resp 18 B/P (MAP) 128/64 (85) Blood Pressure Mean: 85 Departure Impression Primary Impression: Bleeding from the nose Disposition: 01 HOME, SELF-CARE Condition: Improved Departure-Patient Inst. Decision time for Depature: 12:37 Referrals: MARYANN PENG MD, KATRINA M MD (PCP/Family) Primary Care Physician Patient Instructions: Nosebleeds (DC) Add. Discharge Instructions: All discharge instructions reviewed with patient and/or family. Voiced understanding. NEED TO CALL AND SCHEDULE A FOLLOW UP APPOINTMENT WITH DR. PENG SO THAT THEY CAN TAKE YOUR NASAL BALLOON OUT IN APPROXIMATELY 3 DAYS. RECOMMEND 1000 mg OF TYLENOL EVERY Y HOURS NEEDED FOR PAIN. Scripts Amoxicillin (Amoxicillin) 875 Mg Tablet 875 MG PO BID for 3 Days, #6 TAB 0 Refills Prov: DORIS ESPARZA DO 06/19/18 DORIS ESPARZA DO June 19, 2018 12:40
[2018-06-19 12:55] VITALS: BP 122/78
== END 2018-06-19 12:57 | disposition home or self-care (01) ==
LOC: ER FS 11:16 → EDUNIT# 11:25 → ER FS 12:57
DX: R04.0 Epistaxis (principal); G47.30 Sleep apnea, unspecified; F41.9 Anxiety disorder, unspecified; E78.00 Pure hypercholesterolemia, unspecified; I10 Essential (primary) hypertension; E11.40 Type 2 diabetes mellitus with diabetic neuropathy, unspecified; G61.0 Guillain-Barre syndrome; Z79.01 Long term (current) use of anticoagulants; Z79.82 Long term (current) use of aspirin; Z79.51 Long term (current) use of inhaled steroids; Z82.49 Family history of ischemic heart disease and other diseases of the circulatory system; Z87.448 Personal history of other diseases of urinary system; Z86.19 Personal history of other infectious and parasitic diseases; Z87.19 Personal history of other diseases of the digestive system; Z79.4 Long term (current) use of insulin; Z98.890 Other specified postprocedural states; Z85.3 Personal history of malignant neoplasm of breast; Z92.21 Personal history of antineoplastic chemotherapy
CPT/HCPCS: 30905

== ENCOUNTER → 2018-06-19 | Emergency (ER) | payer MEDICARE, MEDICAID | LOC: ER FS 22:54 ==

== ENCOUNTER 2018-06-22 11:29 | Day surgery (SDC) | payer MEDICARE, MEDICAID ==
[2018-06-22] VITALS (9 sets, daily range): BP systolic 94–129; BP diastolic 50–76
[~2018-06-22] VITALS: Ht 149.9 cm; Wt 69.0 kg
[~2018-06-22 11:29] MED LIST changes: +AMOX875T2 PO
--- OUTSIDE RECORDS SUMMARY | 2018-06-22 11:34 | XMS REPORT | Clinical Summary ---
Author Author [facility] Organization [facility] Address Unknown Phone Unavailable Care Team Providers Care V Belt Builder Name Role Phone Parvez Rosario MD Unavailable No Pcp, Na PCP Unavailable Source Comments Some departments are not documenting in the electronic medical record. If you do not see the information that you expected, contact Release of Information in the Health Information Management department at [phone] for further assistance in locating additional records.[facility] Allergies No Known Allergies Medications [...] No Pcp, Na Appointment Question 05/29/2018 Telephone [facility] Evangelist Rdz DO 05/26/2018 Emergency Emergency Medicine [...] 1.010 1.003 - 1.035 [facility] [place] POC Urine PH POC 5.5 5.0 - [...] City/State/Zipcode Phone Number [facility] [address] [place] [address] * US DOPPLER VENOUS W EXTRM LEFT [...] on 05/27/2018 6:57 AM. Performing Organization Address [facility]/Zipcode Phone Number RAD RESULTS * SED RATE (05/26/2018 4:04 PM CDT) Pathologist [facility] Sed Rate -ESR 83 (H) 0 - 30 MM/HR MAIN LAB Specimen Blood Performing Organization Address City/[facility]/Zipcode Phone Number MAIN LAB [address] [place] [address] * CBC AND DIFF (05/26/2018 4:04 PM [...] Basophil Count Specimen Blood Performing Organization Address City/[facility] Phone Number MA[facility] LAB [address] [place] [address] * C REACTIVE PROTEIN (CRP) (05/26/2018 4:04 PM CDT) Pathologist [facility] C-Reactive 2.28 (H) <1.0 MG/DL [facility] Protein Specimen Blood Performing Organization Address City/[facility] Phone Number MAIN LAB [address] [place] [address] * COMPREHENSIVE METABOLIC PANEL (05/26/2018 4:04 PM [...] (L) >60 mL/min [facility] Comment: [place] The eGFR is not validated for use in drug dosing adjustments.Continue to use estimated creatinine clearance per dosing reference text.Please contact the Clinical Pharmacist for questions. eGFR 59 (L) >60 mL/min [facility] [place] Comment: The eGFR is not validated for use in drug dosing adjustments.Continue to use estimated creatinine clearance per dosing reference text.Please contact the Clinical Pharmacist for questions. Specimen Blood Performing Organization Address City/State/Zipcode Phone Number [facility] [address] [place] [address] * ECG-SCAN (05/26/2018 12:00 AM CDT) Narrative [...] on file. For more information, please contact: [facility] [address] [place] [address]
--- OUTSIDE RECORDS SUMMARY | 2018-06-22 11:34 | XMS REPORT | Encounter Summary ---
Author Author [facility] Organization [facility] Address Unknown Phone Unavailable Care Team Providers Care Resaw Feeder Name Role Phone Parvez Rosario MD Unavailable No Pcp, Na PCP Unavailable Reason for Visit * Reason Comments Appointment Question Encounter Details Care Team Description Date Type Department No Pcp, Na Appointment Question 05/29/2018 [address] [address] Social History Date Tobacco Use [...] with [facility]. pt. has a provider in [place] and was wondering if that is okay to do instead. LVM 0944 documented in this encounter Plan of Treatment Not on filedocumented as of this encounter Visit Diagnoses Not on filedocumented in this encounter
--- OUTSIDE RECORDS SUMMARY | 2018-06-22 11:35 | XMS REPORT | Encounter Summary ---
Author Author [facility] Organization [facility] Address Unknown Phone Unavailable Care Team Providers Care Lime Sludge Mixer Name Role Phone Parvez Rosario MD Unavailable No Pcp, Na PCP Unavailable Reason for Visit * Reason Comments Wound Check Diabetic wound to L foot Encounter Details Care Team Description Date Type Department Evangelist Rdz DO [address] [facility] [place] [address] 05/26/2018 Emergency The [facility] [address] [place] [address] Social History Date Tobacco Use [...] sent through Care Everywhere.* Skin Infection, Cellulitis (PERSIAN) documented in this encounter Medications at Time [...] Turbidity POC CLEAR CLEAR-CLEAR Final Urine Specific [place] POC 1.010 1.003 - 1.035 Final Urine [...] (Results Pending) EKG: Sinus rhythm, rate 70, [place] 164, QRS 80, QTc 398, no STEMI. [...] Disposition Discharge Dpt [facility] [address] [facility] [id number] Attn ist [facility] [phone] Schedule an appointment as soon as possible [...] 1.010 1.003 - 1.035 [facility] [place] POC Urine PH POC 5.5 5.0 - [...] City/State/Zipcode Phone Number [facility] [address] [place] [address] * US DOPPLER VENOUS W EXTRM LEFT [...] 49 (L) >60 mL/min MAIN LAB Comment: [place] The eGFR is not validated for use in drug dosing adjustments.Continue to use estimated creatinine clearance per dosing reference text.Please contact the Clinical Pharmacist for questions. eGFR 59 (L) >60 mL/min [facility] [place] Comment: The eGFR is not validated for use in drug dosing adjustments.Continue to use estimated creatinine clearance per dosing reference text.Please contact the Clinical Pharmacist for questions. Specimen Blood Performing Organization Address City/[facility]/Zipcode Phone Number [facility] [address] [place] [address] * SED RATE (05/26/2018 4:04 PM CDT) Sed Rate -ESR 83 (H) 0 - 30 MM/HR [facility] Specimen Blood Performing Organization Address City/[facility]/Zipcode Phone Number [facility] [address] [place] [address] * C REACTIVE PROTEIN (CRP) (05/26/2018 4:04 PM CDT) C-Reactive 2.28 (H) <1.0 MG/DL [facility] Protein Specimen Blood Performing Organization Address City/[facility]/Zipcode Phone Number [facility] [address] [place] [phone] * CBC AND DIFF (05/26/2018 4:04 PM CDT) White Blood 6.8 4.5 - 11.0 K/UL [facility] Cells RBC 4.10 4.0 - [...] Address City/State/Zipcode Phone Number [facility] [address] [place] [address] * ECG-SCAN (05/26/2018 12:00 AM CDT) Narrative [...]
--- OUTSIDE RECORDS SUMMARY | 2018-06-22 11:38 | XMS REPORT | Continuity of Care Document ---
Author Organization Unknown Address Unknown Allergies Active Description Code Type Severity Reaction Onset Reported/Identified Relationship to Patient Clinical Status Yes No Known Drug Allergies [id number] Drug Allergy Unknown N/A 06/11/2018 Medications There [...] DUE TO UNDERLYING CONDITION W D 12/08/2015 ADNNY PADILLA N Ot G62.9 POLYNEUROPATHY, UNSPECIFIED 12/08/2015 DANNY PADILLA N Ot Z08 ENCNTR FOR FOLLOW-UP EXAM AFTER TRTMT FO 12/08/2015 DANNY PADILLA N Ot Z79.899 OTHER LEAD EMBEDDED SOFTWARE ENGINEER (CURRENT) DRUG THERAPY 12/08/2015 RANDYDANNY SHUKLA N [...] 12/23/2015 DANNY PADILLA N Ot Z79.899 OTHER LEAD EMBEDDED SOFTWARE ENGINEER (CURRENT) DRUG THERAPY 12/23/2015 DANNY PADILLA N [...] 12/31/2015 DANNY PADILLA N Ot Z79.899 OTHER LEAD EMBEDDED SOFTWARE ENGINEER (CURRENT) DRUG THERAPY 12/31/2015 RANDYDANNY SHUKLA N [...] FO 12/10/2016 DANNY PADILLA Ot Z79.899 OTHER LEAD EMBEDDED SOFTWARE ENGINEER (CURRENT) DRUG THERAPY 12/10/2016 DANNY PADILLA [place] [...] FOR FOLLOW-UP EXAM AFTER TRTMT FO 01/23/2017 ADNNY PADILLA N Ot Z79.899 OTHER CARE HOME (CURRENT) DRUG THERAPY 01/23/2017 DANNY PADILLA N Ot Z85.3 PERSONAL HISTORY OF MALIGNANT NEOPLASM O 01/23/2017 DANYN PADILLA N Ot Z92.3 PERSONAL HISTORY OF IRRADIATION 01/23/2017 DANNY PADILLA N Ot E08.40 DIABETES DUE TO UNDERLYING CONDITION W D 01/23/2017 DANNY PADILLA N Ot G62.9 POLYNEUROPATHY, UNSPECIFIED 01/23/2017 DANNY PADILLA N Ot Z08 ENCNTR FOR FOLLOW-UP EXAM AFTER TRTMT FO 01/23/2017 DANNY PADILLA N Ot Z79.899 OTHER LEAD EMBEDDED SOFTWARE ENGINEER (CURRENT) DRUG THERAPY 01/23/2017 DANNY PADILLA N [...] 01/23/2017 DANNY PADILLA N Ot Z79.899 OTHER LEAD EMBEDDED SOFTWARE ENGINEER (CURRENT) DRUG THERAPY 01/23/2017 DANNY PADILLA N [...] EPISTAXIS 01/24/2017 MARYANN PENG MD Ot Z79.82 LEAD EMBEDDED SOFTWARE ENGINEER (CURRENT) USE OF ASPIRIN 01/26/2017 MARYANN PENG [...] 02/04/2017 RANDY REGINALDOKALLI N Ot Z79.899 OTHER LEAD EMBEDDED SOFTWARE ENGINEER (CURRENT) DRUG THERAPY 02/04/2017 RANDY DANNY N [...] 03/09/2017 RANDY DANNY N Ot Z79.899 OTHER LEAD EMBEDDED SOFTWARE ENGINEER (CURRENT) DRUG THERAPY 03/09/2017 RANDY DANNY N [...] 03/10/2017 RANDY DANNY N Ot Z79.899 OTHER LEAD EMBEDDED SOFTWARE ENGINEER (CURRENT) DRUG THERAPY 03/10/2017 RANDY DANNY N [...] 03/07/2018 REGINALDO PADILLAKALLI N Ot Z79.899 OTHER LEAD EMBEDDED SOFTWARE ENGINEER (CURRENT) DRUG THERAPY 03/07/2018 RANDY DANNY N [...] 03/07/2018 RANDY REGINALDOKALLI N Ot Z79.899 OTHER LEAD EMBEDDED SOFTWARE ENGINEER (CURRENT) DRUG THERAPY 03/07/2018 RANDY DANNY N [...] 03/07/2018 DANNY PADILLA [place] Ot Z79.899 OTHER LEAD EMBEDDED SOFTWARE ENGINEER (CURRENT) DRUG THERAPY 03/07/2018 DANNY PADILLA [place] [...] 03/08/2018 DANNY PADILLA [place] Ot Z79.899 OTHER LEAD EMBEDDED SOFTWARE ENGINEER (CURRENT) DRUG THERAPY 03/08/2018 RANDY, DANNY Mariee Ot Z85.3 PERSONAL HISTORY OF MALIGNANT NEOPLASM O 03/08/2018 DANNY PADILLA N Ot Z92.3 PERSONAL HISTORY OF IRRADIATION 03/08/2018 DANNY PADILLA Ot E08.40 DIABETES DUE TO UNDERLYING CONDITION W D 03/08/2018 DANNY PADILLA Ot G62.9 POLYNEUROPATHY, UNSPECIFIED 03/08/2018 DANNY PADILLA Ot Z08 ENCNTR FOR FOLLOW-UP EXAM AFTER TRTMT FO 03/08/2018 DANNY PADILLA Ot Z79.899 OTHER LEAD EMBEDDED SOFTWARE ENGINEER (CURRENT) DRUG THERAPY 03/08/2018 DANNY PADILLA N [...] LOPEZ MD, 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 05/07/2018 RNO LOPEZ MD Ot I10 ESSENTIAL (PRIMARY) HYPERTENSION 05/07/2018 RON LOPEZ MD, Ot K59.00 CONSTIPATION, UNSPECIFIED 05/07/2018 RON LOPEZ MD, Ot N39.0 URINARY TRACT INFECTION, SITE NOT SPECIF 05/07/2018 RON LOPEZ MD, Ot N63.10 UNSPECIFIED LUMP IN THE RIGHT BREAST, UN 05/07/2018 RON LOPEZ MD, Ot R10.31 RIGHT LOWER QUADRANT PAIN 05/07/2018 RON LOPEZ MD, Ot Z79.4 LEAD EMBEDDED SOFTWARE ENGINEER (CURRENT) USE OF INSULIN 05/07/2018 RON LOPEZ [...] FO 06/11/2018 DANNY PADILLA Ot Z79.899 OTHER LEAD EMBEDDED SOFTWARE ENGINEER (CURRENT) DRUG THERAPY 06/11/2018 DANNY PADILLA Ot Z85.3 PERSONAL HISTORY OF MALIGNANT NEOPLASM O 06/11/2018 DANNY PADILLA [place] Ot Z92.3 PERSONAL HISTORY OF IRRADIATION 06/16/2018 ABHISHEK SAGE MD, Ot C50.919 MALIGNANT NEOPLASM OF UNSP SITE OF UNSPE 06/16/2018 ABHISHEK SAGE MD, Ot E11.40 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 06/16/2018 ABHISHEK SAGE MD, Ot E11.621 TYPE 2 DIABETES MELLITUS WITH FOOT ULCER 06/16/2018 ABHISHEK SAGE MD, Ot E78.00 PURE HYPERCHOLESTEROLEMIA, UNSPECIFIED 06/16/2018 ABHISHEK SAGE MD, Ot E87.5 HYPERKALEMIA 06/16/2018 ABHISHEK SAGE MD, Ot F41.9 ANXIETY DISORDER, UNSPECIFIED 06/16/2018 ABHISHEK SAGE MD, Ot F79 UNSPECIFIED INTELLECTUAL DISABILITIES 06/16/2018 ABHISHEK SAGE MD, Ot G25.81 RESTLESS LEGS SYNDROME 06/16/2018 ABHISHEK SAGE MD, Ot G47.30 SLEEP APNEA, UNSPECIFIED 06/16/2018 ABHISHEK SAGE MD, 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 06/16/2018 ABHISHEK SAGE MD, Ot H91.93 UNSPECIFIED HEARING LOSS, BILATERAL 06/16/2018 ABHISHEK SAGE MD, Ot I10 ESSENTIAL (PRIMARY) HYPERTENSION 06/16/2018 ABHISHEK SAGE MD, Ot I26.99 OTHER PULMONARY EMBOLISM WITHOUT ACUTE C 06/16/2018 ABHISHEK SAGE MD, Ot K21.9 GASTRO-ESOPHAGEAL 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 06/16/2018 ABHISHEK SAGE MD, Ot L03.116 CELLULITIS OF LEFT LOWER LIMB 06/16/2018 ABHISHEK SAGE MD, Ot 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 06/16/2018 ABHISHEK SAGE MD, Ot M10.9 GOUT, UNSPECIFIED 06/16/2018 ABHISHEK SAGE MD, Ot M19.91 PRIMARY OSTEOARTHRITIS, UNSPECIFIED SITE 06/16/2018 ABHISHEK SAGE MD, Ot R26.9 UNSPECIFIED ABNORMALITIES OF GAIT AND MO 06/16/2018 ABHISHEK SAGE MD, Ot R31.9 HEMATURIA, UNSPECIFIED 06/16/2018 ABHISHEK SAGE MD Ot R32 UNSPECIFIED URINARY INCONTINENCE 06/16/2018 ABHISHEK SAGE MD, Ot Z85.3 PERSONAL HISTORY OF MALIGNANT NEOPLASM O 06/16/2018 ABHISHEK SAGE MD, Ot Z86.19 PERSONAL HISTORY OF OTHER INFECTIOUS AND 06/16/2018 ABHISHEK SAGE MD, Ot Z92.21 PERSONAL HISTORY OF ANTINEOPLASTIC CHEMO 06/16/2018 ABHISHEK SAGE MD, Ot Z92.3 PERSONAL HISTORY OF IRRADIATION 06/16/2018 ABHISHEK SAGE MD, Ot Z97.4 PRESENCE OF EXTERNAL HEARING-AID 06/21/2018 DORIS ESPARZA DO, Ot E11.40 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 06/21/2018 DORIS ESPARZA DO, Ot E78.00 PURE HYPERCHOLESTEROLEMIA, UNSPECIFIED 06/21/2018 DORIS ESPARZA DO, Ot F41.9 ANXIETY DISORDER, UNSPECIFIED 06/21/2018 DORIS ESPARZA DO, Ot G47.30 SLEEP APNEA, UNSPECIFIED 06/21/2018 DORIS ESPARZA DO, 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 06/21/2018 DORIS ESPARZA DO, Ot I10 ESSENTIAL (PRIMARY) HYPERTENSION 06/21/2018 DORIS ESPARZA DO, Ot R04.0 EPISTAXIS 06/21/2018 DORIS ESPARZA DO, Ot Z79.01 CARE HOME (CURRENT) USE OF ANTICOAGULANT 06/21/2018 DORIS ESPARZA DO, Ot Z79.4 CARE HOME (CURRENT) USE OF INSULIN 06/21/2018 DORIS ESPARZA DO, Ot Z79.51 LEAD EMBEDDED SOFTWARE ENGINEER (CURRENT) USE OF INHALED STERO 06/21/2018 DORIS ESPARZA DO, Ot Z79.82 CARE HOME (CURRENT) USE OF ASPIRIN 06/21/2018 DORIS ESPARZA DO, Ot Z82.49 FAMILY HX OF ISCHEM HEART DIS AND OTH DI 06/21/2018 DORIS ESPARZA DO, Ot Z85.3 PERSONAL HISTORY OF MALIGNANT NEOPLASM O 06/21/2018 DORIS ESPARZA DO, Ot Z86.19 PERSONAL HISTORY OF OTHER INFECTIOUS AND 06/21/2018 DORIS ESPARZA DO, Ot Z87.19 PERSONAL HISTORY OF OTHER DISEASES OF TH 06/21/2018 DORIS ESPARZA DO, Ot Z87.448 PERSONAL HISTORY OF OTHER DISEASES OF UR 06/21/2018 DORIS ESPARZA DO D Ot Z92.21 PERSONAL HISTORY OF ANTINEOPLASTIC CHEMO 06/21/2018 VILMA DORIS SLOAN Ot Z98.890 OTHER SPECIFIED POSTPROCEDURAL STATES 06/22/2018 [facility], GABRIEL Ot E11.40 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 06/22/2018 [facility], GABRIEL Muse E11.621 TYPE 2 DIABETES MELLITUS WITH FOOT ULCER 06/22/2018 [facility], GABRIEL Ot E78.00 PURE HYPERCHOLESTEROLEMIA, UNSPECIFIED 06/22/2018 [facility], GABRIEL Ot F41.9 ANXIETY DISORDER, UNSPECIFIED 06/22/2018 [facility], GABRIEL Ot G47.30 SLEEP APNEA, UNSPECIFIED 06/22/2018 [facility], GABRIEL 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 06/22/2018 [facility], GABRIEL Ot I10 ESSENTIAL (PRIMARY) HYPERTENSION 06/22/2018 [facility], GABRIEL Ot 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 06/22/2018 [facility] Ot Z79.01 LEAD EMBEDDED SOFTWARE ENGINEER (CURRENT) USE OF ANTICOAGULANT 06/22/2018 [facility], GABRIEL Ot Z79.4 LEAD EMBEDDED SOFTWARE ENGINEER (CURRENT) USE OF INSULIN 06/22/2018 [facility], GABRIEL Ot Z79.82 CARE HOME (CURRENT) USE OF ASPIRIN 06/22/2018 [facility], GABRIEL Ot Z82.49 FAMILY HX OF ISCHEM HEART DIS AND OTH DI 06/22/2018 [facility], GABRIEL Ot Z85.3 PERSONAL HISTORY OF MALIGNANT NEOPLASM O 06/22/2018 [facility] Ot Z87.19 PERSONAL HISTORY OF OTHER DISEASES OF TH 06/22/2018 [facility], GABRIEL Ot Z87.448 PERSONAL HISTORY OF OTHER DISEASES OF UR 06/22/2018 [facility]AVALA , GABRIEL Ot Z92.21 PERSONAL HISTORY OF ANTINEOPLASTIC CHEMO 06/22/2018 [facility], GABRIEL Ot Z98.890 OTHER SPECIFIED POSTPROCEDURAL STATES Procedures Code Description Performed By Performed On [id number] EXCISION OF L FOOT SUBCU/ FASCIA, OPEN AP 06/09/2018 Results Test Result Range Complete blood count [...] culture - 05/07/18 20:21 Bacterial urine culture [id number] NRG COLONY COUNT >100,000/ML NRG FTX;REPORTABLE SENSITIVITY [...] - 16:50 MRSA SCREEN RESULT MRSA ISOLATED NRG Capillary blood glucose measurement by glucometer [...] Status Pt. Type Provider Facility Loc./Unit Complaint [id number] 08/25/2017 14:55:02 [place] [id number] 06/02/2018 11:00:00 06/02/2018 23:59:59 CLS Outpatient ERENDIRA [facility] [id number] 06/19/2018 11:16:00 06/19/2018 12:57:00 DIS Outpatient DORIS ESPARZA DO [facility] ER FS EPISTAXIS [id number] 06/11/2018 11:54:00 06/16/2018 12:45:00 DIS Outpatient ABHISHEK SAGE MD [facility] 4TH LT FOOT WOUND [id number] 05/12/2018 13:33:00 05/12/2018 23:59:59 CLS Outpatient ERENDIRA KEANE MD [facility] LAB FS E875 [id number] 05/07/2018 19:21:00 05/07/2018 23:20:00 DIS Emergency RON LOPEZ MD [facility] ER FS RT SIDE PAIN [id number] 03/07/2018 23:02:00 03/10/2018 13:30:00 DIS Inpatient BENJAMÍN BARROW MD [facility] 4TH SMALL BOWEL ILEUS [id number] 03/10/2017 00:13:00 03/10/2017 23:59:59 CLS Preadmit DANNY PADILLA [facility] ONC [id number] 12/09/2016 12:14:00 03/09/2017 00:01:00 DIS Outpatient DANNY PADILLA [place] [facility] ONC [id number] 01/23/2017 07:06:00 01/24/2017 09:35:00 DIS Outpatient MARYANN PENG MD [facility] SD NOSE BLEED [id number] 12/02/2015 10:42:00 12/02/2015 23:59:59 CLS Outpatient DANNY PADILLA [place] [facility] FS [id number] 11/26/2014 11:00:00 11/26/2014 23:59:59 CLS Outpatient DANNY PADILLA [place] [facility] FS [id number] 11/20/2013 10:16:00 11/20/2013 23:59:59 CLS Outpatient DANNY PADILLA [place] [facility] FS [id number] 11/28/2012 12:59:00 11/28/2012 23:59:59 CLS Outpatient DANNY PADILLA [place] [facility] FS [id number] 06/19/2018 22:54:00 ACT Outpatient GABRIEL ZAAVLA DO [facility] ER FS FOOT ULCER [id number] 11/30/2011 13:04:00 Document Registration [id number] 11/03/2010 12:51:00 Document Registration [id number] 11/04/2009 13:41:00 Document Registration
[2018-06-22] MEDS ORDERED: COCAINE HCL 4% 2 ML SYR ONE (12:00)
[2018-06-22] MEDS ORDERED: MUPIROCIN 2% OINT 22 GM (BACTROBAN) TUBE ONE (12:01)
[2018-06-22] MEDS ORDERED: PHENYLEPHRINE 0.5% NASAL SPR (NEO-SYNEPHRINE) REG ONE (12:01)
[2018-06-22] MEDS ORDERED: LIDOCAINE/EPI 1%-1:100,000 (XYLOCAINE) 20ML ONE (12:01)
[2018-06-22 12:04] LABS: BASOPHILS # (AUTO) 0.1 10^3/uL (0.0-0.1); BASOPHILS % (AUTO) 1 % (0-10); EOSINOPHILS # (AUTO) 0.2 10^3/uL (0.0-0.3); EOSINOPHILS % (AUTO) 2 % (0-10); HEMATOCRIT 33 % (35-52); HEMOGLOBIN 10.9 G/DL (11.5-16.0); LYMPHOCYTES # (AUTO) 1.3 X 10^3 (1.0-4.0); LYMPHOCYTES % (AUTO) 17 % (12-44); MEAN CORPUSCULAR HEMOGLOBIN 32 PG (25-34); MEAN CORPUSCULAR HGB CONC 33 G/DL (32-36); MEAN CORPUSCULAR VOLUME 98 FL (80-99); MEAN PLATELET VOLUME 9.7 FL (7.4-10.4); MONOCYTES # (AUTO) 0.8 X 10^3 (0.0-1.0); MONOCYTES % (AUTO) 10 % (0-12); NEUTROPHILS # (AUTO) 5.5 X 10^3 (1.8-7.8); NEUTROPHILS % (AUTO) 70 % (42-75); PLATELET COUNT 232 10^3/uL (130-400); WHITE BLOOD COUNT 7.8 10^3/uL (4.3-11.0)
[2018-06-22] MEDS ORDERED: fentaNYL INJECTION 100 MCG/2 ML AMP ONE (12:07)
[2018-06-22] MEDS ORDERED: proPOfol 200 MG/20 ML (DIPRIVAN) VIAL IV ONE (12:07)
[2018-06-22] MEDS ORDERED: SUCCINYLCHOLINE INJ 100 MG/5 ML SYR ONE (12:07)
[2018-06-22] MEDS ORDERED: LIDOCAINE PF 2% 5 ML (XYLOCAINE) VIAL ONE (12:07)
[2018-06-22] MEDS ORDERED: SEVOFLURANE (ULTANE) 15 ML INHAL SOLN ONE ×3 (12:07→13:33)
--- NOTE | 2018-06-22 12:10 | NUR ---
THIS RN CALLED DANN JOSE, DAUGHTER/DPOA, AND RECEIVED TELEPHONE CONSENT FOR SURGERY AT THIS APPROXIMATE TIME. AYESHA POLANCO CRNA, WITNESSED.
[2018-06-22 12:19] LABS: INR 1.5 (0.8-1.4); PROTHROMBIN TIME PATIENT 18.2 SEC (12.2-14.7)
[2018-06-22 12:25] LABS: CALCIUM 10.4 MG/DL (8.5-10.1); CREATININE SERUM 0.94 MG/DL (0.60-1.30); POTASSIUM 5.4 MMOL/L (3.6-5.0)
--- NOTE | 2018-06-22 12:29 | Progress Note-Pre Operative ---
Pre-Operative Progress Note H&P Reviewed The H&P was reviewed, patient examined and no changes noted. Date Seen by Provider: June 22, 2018 Time Seen by Provider: 12:00 Date H&P Reviewed: June 22, 2018 Time H&P Reviewed: 12:00 Pre-Operative Diagnosis: Left Posterior Epistaxis MARYANN PENG MD June 22, 2018 12:29
[2018-06-22] MEDS ORDERED: PHENYLEPHRINE 0.5% NASAL SPR (NEO-SYNEPHRINE) REG PRN ×2 (12:30→16:45)
[2018-06-22] MEDS ORDERED: ACETAMINOPHEN 500 MG TAB (TYLENOL) PO PRN (12:30)
[2018-06-22] MEDS ORDERED: PHENYLEPHRINE 100 MCG/ML 10 ML (ANESTHESIA) SYR ONE (12:44)
--- NOTE | 2018-06-22 13:20 | Progress Note-Post Operative ---
Post-Operative Progess Note Surgeon (s)/Behavioral Psychologist (s) Surgeon MARYANN PENG MD Behavioral Psychologist n/a Pre-Operative Diagnosis Left Posterior Epistaxis Post-Operative Diagnosis same Post-Op Procedure Note Date of Procedure: June 22, 2018 Name of Procedure Performed: Endoscopic Repair of Left Posterior Epistaxis Description & Findings Description and Findings: n/a Anesthesia Type get Estimated Blood Loss 75cc Packing DNP-Left side of NOse Specimen(s) collected/removed none MARYANN PENG MD June 22, 2018 13:20
[2018-06-22] MEDS ORDERED: LACTATED RINGERS 1,000 ML IV PRN (13:55)
--- NOTE | 2018-06-22 14:20 | NUR ---
JOSLYN GARCIA admitted to room 403-1, with an admitting diagnosis of EPITAXIS , on from via OR , accompanied by STAFF .JOSLYN GARCIA introduced to surroundings, call light, bed controls, phone, TV, temperature control, lights, meal times, smoking policy, visitor policy, side rail policy, bathrooms and showers. Patient Rights given to patient in the handbook. JOSLYN GARCIA verbalizes understanding that [facility] is not responsible for the loss or damage to any personal effects or valuables that are kept in the patients posession during their hospitalization. The following Patient Care Plans and discharge were discussed with the patietn. JOSLYN GARCIA verbalizes understanding of Interdisciplinary Patient Education. Patient were informed about the Rapid Response Team and its purpose.
--- NOTE | 2018-06-22 15:46 | NUR ---
CM/SS, respond to consult for placement. [facility]: [facility] is preparing to accept patient tomorrow for skilled RN, wound care, and therapies. This has been prearranged and they are acting upon orders already received to secure the wound vac and meet patient's other needs. [facility] will admit patient "Emergent Admission" and will do all KDADS paperwork for CARE Assessment. Discharge team will need to coordinate final discharge and transport when patient is medically released and provide an updated packet to accompany her.
[2018-06-22] MEDS ORDERED: ACETAMINOPHEN 325 MG TABLET PO PRN (16:45)
[2018-06-22] MEDS: D5 1/2 NS W/KCL 20 MEQ/L 1,000 ML IV SCH (17:26)
[2018-06-22] MEDS: ceFAZolin INJECTION 1,000 MG in WATER (STERILE) FOR INJECTION 10 ML IV SCH (17:26)
[2018-06-22] MEDS: HYDROcodone/APAP 5 MG/325 MG (LORTAB) TAB PO PRN ×2 (18:41→22:57)
[2018-06-23] VITALS: BP 125/54
[2018-06-23] MEDS: ceFAZolin INJECTION 1,000 MG in WATER (STERILE) FOR INJECTION 10 ML IV SCH ×2 (01:27→08:15)
[2018-06-23 03:26] VITALS: BP 123/51
[2018-06-23] MEDS: D5 1/2 NS W/KCL 20 MEQ/L 1,000 ML IV SCH ×2 (04:02→15:40)
--- NOTE | 2018-06-23 06:56 | Progress Note-Standard ---
Standard Progress Note Progress Notes/Assess & Plan Date Seen by a Provider: June 23, 2018 Time Seen by a Provider: 06:30 Progress/Assessment & Plan Mario-06/23-630 Patient seen-no signficant bleeding overnight minimal pain patient originally scheduled for senior care placement today by her family consulted licensed clinical social worker to coordinate fine to discahrege to the senior care discharge sheet filled out discharge prescription in chart-keflex for ten days [facility] 2 weeks Final Diagnosis left posterior epistaxis eliquis and asp anticoagulation MARYANN PENG MD June 23, 2018 06:56
[2018-06-23 08:01] VITALS: BP 125/72
--- NOTE | 2018-06-23 10:23 | NUR ---
DISCHARGE PLANNING: This Rn is assisting with patient's final discharge plan. Plan is for an Emergent admission to [facility]. I have spoken with Joselyn at [facility] and to patient's jcusfw-kg-ypb, Jazzy confirming that all is a GO. Discharge orders and clinical sent to [facility]. Awaiting a call back for an anticipated pick-up time.
--- NOTE | 2018-06-23 13:46 | Anesthesia-General Post-Op ---
General Patient Condition Mental Status/LOC: Same as Preop Cardiovascular: Satisfactory Nausea/Vomiting: Absent Respiratory: Satisfactory (She states that she isn't breathing well, however it seems to be about the same as her baseline (per patient).) Pain: Controlled Complications: Absent Post Op Complications Complications None Follow Up Care/Instructions Patient Instructions None needed. Anesthesia/Patient Condition Patient Condition Patient is doing well, no complaints, stable vital signs, no apparent adverse anesthesia problems. AUDREY MORGAN DO June 23, 2018 13:46
[2018-06-23 16:19] VITALS: BP 125/72
== END 2018-06-23 14:45 ==
LOC: SDC 11:29 → 4TH 16:16 → SDC 06-23 14:45
PROVIDERS: ATTEND Otolaryngology Otolaryngology/Facial Plastic Surgery
DX: R04.0 Epistaxis (principal); I10 Essential (primary) hypertension; E11.40 Type 2 diabetes mellitus with diabetic neuropathy, unspecified; G47.33 Obstructive sleep apnea (adult) (pediatric); K21.9 Gastro-esophageal reflux disease without esophagitis; Z86.711 Personal history of pulmonary embolism; Z79.01 Long term (current) use of anticoagulants; Z79.82 Long term (current) use of aspirin; Z79.899 Other long term (current) drug therapy
CPT/HCPCS: 36415; 80048; 85025; 85610

== ENCOUNTER → 2018-08-04 | Outpatient (CLI) | payer MEDICARE, MEDICAID | LOC: LAB FS 10:38 | PROVIDERS: ATTEND Family Medicine | DX: S91.302A Unspecified open wound, left foot, initial encounter (principal) | CPT/HCPCS: 87070; 87077; 87186; 87205 ==

== ENCOUNTER 2018-08-07 19:04 | Emergency (ER) | payer MEDICARE, MEDICAID ==
[~2018-08-07] VITALS: Ht 149.9 cm; Wt 65.8 kg
[2018-08-07] MEDS ORDERED: LIDOCAINE/EPI 2% 1:100,00 (XYLOCAINE) 20 ML VIAL ONE (20:06)
[2018-08-07] MEDS ORDERED: CEPH-507 PO (20:14)
--- NOTE | 2018-08-07 20:14 | ED EENT ---
History of Present Illness General Chief Complaint: Nasal Problems Stated Complaint: NOSE BLEED History of Present Illness Date Seen by Provider: Aug 07, 2018 Time Seen by Provider: 20:10 Initial Comments Patient presents emergency department with external grinder tool for evaluation of left naris epistaxis that started this afternoon around 4 PM and she was able to get stop momentarily however it started again and it has since stopped since arrival. She has had recurrent epistaxis issues in the past and has required packing. She is on eloquis. She is in no obvious distress with normal vital signs. Allergies and Home Medications Allergies Coded Allergies: No Known Drug Allergies (Unverified , 06/11/18) Home Medications Allopurinol 100 Mg Tablet, 100 MG PO DAILY, (Reported) Alprazolam 0.5 Mg Tablet, 0.5 MG PO BID, (Reported) Amoxicillin 875 Mg Tablet, 875 MG PO BID Prescribed by: DORIS ESPARZA on 06/19/18 1240 Apixaban 5 Mg Tablet, 10 MG PO BID TAKE 2 TABLETS TWICE DAILY X 7 DAYS THEN TAKE 1 TABLET TWICE DAILY Prescribed by: BRIANNA HERNANDEZ on 06/16/18 1134 Aspirin 81 Mg Tablet.dr, 81 MG PO HS, (Reported) Calcium Carbonate 600 Mg Tablet, 600 MG PO DAILY, (Reported) Cephalexin 500 Mg Capsule, 500 MG PO BID Prescribed by: PABLITO HOWARD on 08/07/182013 Gabapentin 600 Mg Tablet, 600 MG PO QID, (Reported) Gemfibrozil 600 Mg Tablet, 600 MG PO BID, (Reported) Glipizide 5 Mg Tablet, 5 MG PO BID, (Reported) Mirabegron 25 Mg Tab.er.24h, 25 MG PO DAILY, (Reported) Montelukast Sodium 10 Mg Tablet, 10 MG PO HS, (Reported) Multivitamin 1 Each Tablet, 1 TAB PO DAILY, (Reported) Omeprazole 20 Mg Capsule.dr, 20 MG PO DAILY, (Reported) Primidone 50 Mg Tablet, 100 MG PO BID, (Reported) TAKES 2 (50MG) TABLETS Sertraline HCl 50 Mg Tablet, 50 MG PO DAILY, (Reported) Tramadol HCl 50 Mg Tablet, 50 MG PO Q6H PRN for PAIN-MODERATE Prescribed by: BRIANNA HERNANDEZ on 06/16/18 1031 Valsartan 160 Mg Tablet, 80 MG PO DAILY, (Reported) TAKES 1/2 (160MG) TABLET Patient Home Medication List Home Medication List Reviewed: Yes Review of Systems Review of Systems Constitutional: no symptoms reported Eyes: No Symptoms Reported Nose: epistaxis Throat: no symptoms reported Respiratory: no symptoms reported Past Czoxrxa-Trubuq-Zsqlln Hx Patient Social History Type Used: Cigarettes 2nd Hand Smoke Exposure: No Recent Foreign Travel: No Contact w/Someone Who Travel: No Recent Hopitalizations: No Seasonal Allergies Seasonal Allergies: No Past Medical History Surgeries: Yes (CATARACTS) Abdominal, Bowel Surgery, Breast, Gallbladder Respiratory: Yes Pulmonary Embolism, Sleep Apnea Cardiac: Yes High Cholesterol, Hypertension Neurological: Yes (GUILLAIN-BARRE) Neuropathy 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: 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 Sexually Transmitted Disease: Yes (GONORRHEA) Genitourinary: Yes (INCONTINENCE) Gastrointestinal: Yes Gastrointestinal Bleed Musculoskeletal: Yes (RESTLESS LEGS; GAIT DISTURBANCE) Arthritis Endocrine: Yes Diabetes, Non-Insulin dep HEENT: Yes (NOSEBLEEDS; PERTUSSIS; ) Cataract Loss of Vision: Bilateral Hearing Impairment: Hard of Hearing, Bilateral Hearing Aide Cancer: Yes Breast Did You Recieve Any Treatments: Yes What Type of Treatment Did You: Chemotherapy, Radiation, Surgical Intervention Psychosocial: Yes Anxiety Integumentary: Yes (CHICKEN POX, ULCER OF LEFT ANKLE) Blood Disorders: No Family Medical History Heart Disease, Diabetes, Hypertension, Other Conditions/Hx Physical Exam Vital Signs Vital Signs - First Documented 08/07/18 20:23 Temp 98.5 Pulse 70 Resp 16 B/P (MAP) 123/52 (75) O2 Delivery Room Air Height, Weight, BMI Height: 4'11.00" Weight: 152lbs. 3.0oz. 69.614545tr; 30.7 BMI Method:Stated General Appearance: WD/WN, no apparent distress Nose: other (Clots in left nare with apparent anterior nose bleed etiology. No active bleeding.) Cardiovascular: normal peripheral pulses Respiratory: no respiratory distress Procedures/Interventions Nasal : Nasal Location: Left Clots Cleared from Nasal: Patient Blowing Nasal Drops Instilled: Afrin, Lidocaine Inspection with: Otoscope Nasal Procedures: Rapid Rhino Progress/Results/Core Measures Results/Orders My Orders Orders - PABLITO HOWARD DO Oxymetazoline 0.05% Nasal [place] (Afrin 0. (08/07/18 21:00) Lidocaine/Epi 1% 1:100,000 (Xylocaine /E (08/07/18 20:15) Lidocaine/Epi 2% 1:100,000 (Xylocaine/Ep (08/07/18 20:06) Medications Given in ED Current Medications Medications Dose Ordered Sig/Jaleel Route Start Time Stop Time Status Last Admin Dose Admin Lidocaine/ Epinephrine 20 ml STK-MED ONCE .ROUTE 08/07/18 20:06 08/07/18 20:12 DC 08/07/18 20:14 20 ML Vital Signs/I&O 08/07/18 20:23 Temp 98.5 Pulse 70 Resp 16 B/P (MAP) 123/52 (75) O2 Delivery Room Air Progress Progress Note : Progress Note Patient with apparent anterior epistaxis that had stopped prior to arrival however given she is having recurrent bleeds and is on eloquent is made the decision to go ahead and place a packing to prevent further issues and she would likely have to return. Bleeding stopped. Patient will be discharged on Keflex with instructions to follow with ENT within 2-3 days. Patient and external grinder tool aware and agreeable with plan for discharge and verbalized understanding of the above instructions. Departure Impression Primary Impression: Epistaxis Disposition: 01 HOME, SELF-CARE Condition: Stable Departure-Patient Inst. Referrals: ERENDIRA KEANE MD (PCP/Family) Primary Care Physician Patient Instructions: Nosebleeds (DC) Scripts Cephalexin (Keflex) 500 Mg Capsule 500 MG PO BID for 5 Days, #10 CAP Prov: PABLITO HOWARD DO 08/07/18 PABLITO HOWARD DO Aug 07, 2018 20:14
[2018-08-07] MEDS ORDERED: LIDOCAINE/EPI 1%-1:100,000 (XYLOCAINE) 20ML INJ ONE (20:15)
--- NOTE | 2018-08-07 20:27 | NUR ---
Rhino rocket applied per Dr Dela Cruz.
[2018-08-07 20:34] VITALS: BP 147/46
[2018-08-07] MEDS ORDERED: OXYMETAZOLINE (AFRIN) 0.05% NA 15 ML BTL SCH (21:00)
== END 2018-08-07 20:35 | disposition home or self-care (01) ==
LOC: EDUNIT# 19:04 → ER FS 19:05
DX: R04.0 Epistaxis (principal); I10 Essential (primary) hypertension; E78.00 Pure hypercholesterolemia, unspecified; G47.30 Sleep apnea, unspecified; E11.40 Type 2 diabetes mellitus with diabetic neuropathy, unspecified; F41.9 Anxiety disorder, unspecified; Z85.3 Personal history of malignant neoplasm of breast; Z86.711 Personal history of pulmonary embolism; Z79.82 Long term (current) use of aspirin; Z79.84 Long term (current) use of oral hypoglycemic drugs; Z79.01 Long term (current) use of anticoagulants; Z82.49 Family history of ischemic heart disease and other diseases of the circulatory system
CPT/HCPCS: 99282

== ENCOUNTER 2018-08-22 15:45 | Inpatient (IN) | payer MEDICARE, MEDICAID ==
[~2018-08-22] VITALS: Ht 149.9 cm; Wt 72.0 kg
[2018-08-22] MEDS ORDERED: NS IV 1000 ML 1,000 ML IV STA (16:02)
[2018-08-22] MEDS ORDERED: NS IV 500 ML 500 ML IV ONE (16:02)
[2018-08-22] MEDS ORDERED: ONDANSETRON 4 MG/2 ML (SDV) Z0FRAN IVP ONE (16:15)
[2018-08-22 16:18] LABS: HEMATOCRIT 38 % (35-52); HEMOGLOBIN 12.5 G/DL (11.5-16.0); MEAN CORPUSCULAR HEMOGLOBIN 31 PG (25-34); MEAN CORPUSCULAR VOLUME 95 FL (80-99); WHITE BLOOD COUNT 10.9 10^3/uL (4.3-11.0)
[2018-08-22 16:19] LABS: BASOPHILS % (AUTO) 0 % (0-10); EOSINOPHILS % (AUTO) 0 % (0-10); LYMPHOCYTES % (AUTO) 10 % (12-44); MEAN CORPUSCULAR HGB CONC 33 G/DL (32-36); MONOCYTES # (AUTO) 0.9 X 10^3 (0.0-1.0); MONOCYTES % (AUTO) 8 % (0-12); NEUTROPHILS # (AUTO) 8.8 X 10^3 (1.8-7.8); NEUTROPHILS % (AUTO) 81 % (42-75); PLATELET COUNT 292 10^3/uL (130-400); RED CELL DISTRIBUTION WIDTH 13.3 % (10.0-14.5)
[2018-08-22 16:39] LABS: CREATININE SERUM 0.91 MG/DL (0.60-1.30)
[2018-08-22 16:40] LABS: ALBUMIN 4.5 GM/DL (3.2-4.5); BILIRUBIN,TOTAL 0.3 MG/DL (0.1-1.0); TOTAL PROTEIN 7.9 GM/DL (6.4-8.2)
--- NOTE | 2018-08-22 16:55 | Diagnostic Imaging Report ---
INDICATION: Abdominal pain. COMPARISON: May 07, 2018. TECHNIQUE: Four radiographs of the abdomen and chest dated August 22, 2018. FINDINGS: The cardiac silhouette is enlarged, though stable. No significant pulmonary vascular congestion. The lungs are clear. No pleural effusion. No pneumothorax. No acute osseous abnormality within the chest. Surgical clips are present within the right upper quadrant of the abdomen. The stomach is mildly distended with gas. Small amount of gas and stool is noted within the colon. Air-filled loops of small bowel are also present. Loops of small bowel within the right lower quadrant are borderline dilated measuring right at 3 cm in transverse diameter. No evidence of free air. Scattered vascular calcifications. Scattered osseous degenerative changes without acute osseous abnormality. IMPRESSION: Borderline dilated loops of small bowel with associated gas-distended stomach. Findings may relate to underlying small bowel obstruction. Recommend clinical correlation. If there is clinical concern for underlying bowel obstruction, then a CT of the abdomen and pelvis would be recommended. Cardiomegaly without congestive heart failure. Dictated by: Dictated on workstation # [id number]
--- NOTE | 2018-08-22 17:00 | ED Abdominal Pain ---
General Chief Complaint: Abdominal/GI Problems Stated Complaint: VOMITING,ABD PAIN Source of Information: Patient History of Present Illness Date Seen by Provider: Aug 22, 2018 Time Seen by Provider: 16:00 Initial Comments 77-year-old female presents with some abdominal pain and distention for about 4 days. She's also had some nausea and vomiting for about 3 days. She does report she's had some bowel movements but has difficulty remembering when. Her history of present illness is somewhat limited due to what appears to be difficulty with memory. She has some diffuse abdominal pain. She denies any fever, chills or recent illness. Allergies and Home Medications Allergies Coded Allergies: No Known Drug Allergies (Unverified , 06/11/18) Home Medications Allopurinol 100 Mg Tablet, 100 MG PO DAILY, (Reported) Alprazolam 0.5 Mg Tablet, 0.5 MG PO BID, (Reported) Amoxicillin 875 Mg Tablet, 875 MG PO BID Prescribed by: DORIS ESPARZA on 06/19/18 1240 Apixaban 5 Mg Tablet, 10 MG PO BID TAKE 2 TABLETS TWICE DAILY X 7 DAYS THEN TAKE 1 TABLET TWICE DAILY Prescribed by: BRIANNA HERNANDEZ on 06/16/18 1134 Aspirin 81 Mg Tablet.dr, 81 MG PO HS, (Reported) Calcium Carbonate 600 Mg Tablet, 600 MG PO DAILY, (Reported) Cephalexin 500 Mg Capsule, 500 MG PO BID Prescribed by: PABLITO HOWARD on 08/07/182013 Gabapentin 600 Mg Tablet, 600 MG PO QID, (Reported) Gemfibrozil 600 Mg Tablet, 600 MG PO BID, (Reported) Glipizide 5 Mg Tablet, 5 MG PO BID, (Reported) Mirabegron 25 Mg Tab.er.24h, 25 MG PO DAILY, (Reported) Montelukast Sodium 10 Mg Tablet, 10 MG PO HS, (Reported) Multivitamin 1 Each Tablet, 1 TAB PO DAILY, (Reported) Omeprazole 20 Mg Capsule.dr, 20 MG PO DAILY, (Reported) Primidone 50 Mg Tablet, 100 MG PO BID, (Reported) TAKES 2 (50MG) TABLETS Sertraline HCl 50 Mg Tablet, 50 MG PO DAILY, (Reported) Tramadol HCl 50 Mg Tablet, 50 MG PO Q6H PRN for PAIN-MODERATE Prescribed by: BRIANNA HERNANDEZ on 06/16/18 1031 Valsartan 160 Mg Tablet, 80 MG PO DAILY, (Reported) TAKES 1/2 (160MG) TABLET Patient Home Medication List Home Medication List Reviewed: Yes Review of Systems Review of Systems Constitutional: no symptoms reported EENTM: No Symptoms Reported Respiratory: Denies Cough, Denies Shortness of Air, Denies SOA With Exertion Cardiovascular: Denies Chest Pain, Denies Edema Gastrointestinal: Abdomen Distended, Abdominal Pain, Nausea, Vomiting Musculoskeletal: no symptoms reported Skin: no symptoms reported Past Fbthibh-Hajdir-Huedbd Hx Past Med/Social Hx: Reviewed Nursing Past Med/Soc Hx Patient Social History Type Used: Cigarettes 2nd Hand Smoke Exposure: No Recent Foreign Travel: No Contact w/Someone Who Travel: No Recent Hopitalizations: No Seasonal Allergies Seasonal Allergies: No Past Medical History Surgeries: Yes (CATARACTS) Abdominal, Bowel Surgery, Breast, Gallbladder Respiratory: Yes Pulmonary Embolism, Sleep Apnea Cardiac: Yes High Cholesterol, Hypertension Neurological: Yes (GUILLAIN-BARRE) 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 Sexually Transmitted Disease: Yes (GONORRHEA) Genitourinary: Yes (INCONTINENCE) Gastrointestinal: Yes Gastrointestinal Bleed Musculoskeletal: Yes (RESTLESS LEGS; GAIT DISTURBANCE) Arthritis Endocrine: Yes Diabetes, Non-Insulin dep HEENT: Yes (NOSEBLEEDS; PERTUSSIS; ) Cataract Loss of Vision: Bilateral Hearing Impairment: Hard of Hearing, Bilateral Hearing Aide Cancer: Yes Breast Did You Recieve Any Treatments: Yes What Type of Treatment Did You: Chemotherapy, Radiation, Surgical Intervention Psychosocial: Yes Anxiety Integumentary: Yes (CHICKEN POX, ULCER OF LEFT ANKLE) Blood Disorders: No Family Medical History Heart Disease, Diabetes, Hypertension, Other Conditions/Hx Physical Exam Vital Signs Vital Signs - First Documented 08/22/18 15:52 Temp 99.3 Pulse 104 Resp 16 B/P (MAP) 119/59 (79) Pulse Ox 94 O2 Delivery Room Air Capillary Refill : Height/Weight/BMI Height: 4'11.00" Weight: 145lbs. 3.0oz. 65.524427nq; 30.7 BMI Method:Stated General Appearance: no apparent distress Neck: supple Respiratory: chest non-tender, lungs clear, normal breath sounds Cardiovascular: normal peripheral pulses, regular rate, rhythm, no edema Gastrointestinal: distended; No guarding, No rebound; tenderness (Mild diffuse) Extremities: normal range of motion, non-tender Neurologic/Psychiatric: alert, normal mood/affect, oriented x 3 Skin: normal color, warm/dry Progress/Results/Core Measures Results/Orders Lab Results Laboratory Tests Test 08/22/18 16:08 Range/Units White Blood Count 10.9 4.3-11.0 10^3/uL Red Blood Count 3.99 L 4.35-5.85 10^6/uL Hemoglobin 12.5 11.5-16.0 G/DL Hematocrit 38 35-52 % Mean Corpuscular Volume 95 80-99 FL Mean Corpuscular Hemoglobin 31 25-34 PG Mean Corpuscular Hemoglobin Concent 33 32-36 G/DL Red Cell Distribution Width 13.3 10.0-14.5 % Platelet Count 292 130-400 10^3/uL Mean Platelet Volume 9.0 7.4-10.4 FL Neutrophils (%) (Auto) 81 H 42-75 % Lymphocytes (%) (Auto) 10 L 12-44 % Monocytes (%) (Auto) 8 0-12 % Eosinophils (%) (Auto) 0 0-10 % Basophils (%) (Auto) 0 0-10 % Neutrophils # (Auto) 8.8 H 1.8-7.8 X 10^3 Lymphocytes # (Auto) 1.0 1.0-4.0 X 10^3 Monocytes # (Auto) 0.9 0.0-1.0 X 10^3 Eosinophils # (Auto) 0.0 0.0-0.3 10^3/uL Basophils # (Auto) 0.0 0.0-0.1 10^3/uL Sodium Level 135 135-145 MMOL/L Potassium Level 5.0 3.6-5.0 MMOL/L Chloride Level 91 L 98-107 MMOL/L Carbon Dioxide Level 26 21-32 MMOL/L Anion Gap 18 H 5-14 MMOL/L Blood Urea Nitrogen 32 H 7-18 MG/DL Creatinine 0.91 0.60-1.30 MG/DL Estimat Glomerular Filtration Rate 60 BUN/Creatinine Ratio 35 Glucose Level 209 H 70-105 MG/DL Calcium Level 10.0 8.5-10.1 MG/DL Corrected Calcium 9.6 8.5-10.1 MG/DL Total Bilirubin 0.3 0.1-1.0 MG/DL Aspartate Amino Transf (AST/SGOT) 25 5-34 U/L Alanine Aminotransferase (ALT/SGPT) 21 0-55 U/L Alkaline Phosphatase 93 40-136 U/L Total Protein 7.9 6.4-8.2 GM/DL Albumin 4.5 3.2-4.5 GM/DL My Orders Orders - SORIN PORTILLO DO Comprehensive Metabolic Panel (08/22/18 16:02) Ua Culture If Indicated (08/22/18 16:02) Ed Iv/Invasive Line Start (08/22/18 16:02) Acute Abd Series (08/22/18 16:02) Cbc With Automated Diff (08/22/18 16:02) Ondansetron Injection (Zofran Injectio (08/22/18 16:15) Ns Iv 1000 Ml (Sodium Chloride 0.9%) (08/22/18 16:02) Ed Iv/Invasive Line Start (08/22/18 16:02) Ed Iv/Invasive Line Start (08/22/18 16:02) Ns Iv 500 Ml (Sodium Chloride 0.9%) (08/22/18 16:02) Ct Abdomen/Pelvis W (08/22/18 17:00) Ng Tube Insert & Assessment (08/22/18 18:00) Ns Iv 1000 Ml (Sodium Chloride 0.9%) (08/22/18 18:12) Medications Given in ED Current Medications Medications Dose Ordered Sig/Jaleel Route Start Time Stop Time Status Last Admin Dose Admin Iohexol 100 ml ONCE ONCE IV 08/22/18 17:15 08/22/18 17:16 UNV 08/22/18 17:36 100 ML Ondansetron HCl 4 mg ONCE ONCE IVP 08/22/18 16:15 08/22/18 16:16 DC 08/22/18 16:16 4 MG Sodium Chloride 10 ml NEEDED PRN IV 08/22/18 17:15 UNV 08/22/18 17:36 10 ML Sodium Chloride 100 ml ONCE ONCE IV 08/22/18 17:15 08/22/18 17:16 UNV 08/22/18 17:36 80 ML Vital Signs/I&O 08/22/18 15:52 Temp 99.3 Pulse 104 Resp 16 B/P (MAP) 119/59 (79) Pulse Ox 94 O2 Delivery Room Air Departure Communication (Admissions) Time/Spoke to Admitting Phy: 18:[address] Dash and Dr. Hernandez. Patient will be admitted to Dr. Hernandez service with Dr. Dash consult. We'll place an EKG to prior to transfer to [facility]. Patient to be transferred in stable condition. Impression Primary Impression: Small bowel obstruction Disposition: ADMITTED INPATIENT Condition: Stable Admissions Decision to Admit Reason: Admit from ER (Trauma) Decision to Admit/Date: Aug 22, 2018 Time/Decision to Admit Time: 18:16 Departure-Patient Inst. Referrals: ERENDIRA KEANE MD (PCP/Family) Primary Care Physician SORIN PORTILLO DO Aug 22, 2018 17:00
[2018-08-22] MEDS ORDERED: IOHEXOL 350 MG/ML 100 ML (OMNIPAQUE 350) VIAL IV ONE (17:15)
[2018-08-22] MEDS ORDERED: NS 100 ML (IVPB) BAG IV ONE (17:15)
[2018-08-22] MEDS ORDERED: HOLD METFORMIN - RECEIVED CONTRAST 20 ML VIAL IV SCH (17:15)
[2018-08-22] MEDS ORDERED: CATHETER FLUSH 10 ML SYR IV PRN (17:15)
--- NOTE | 2018-08-22 17:50 | Diagnostic Imaging Report ---
PROCEDURE: CT abdomen and pelvis with contrast. TECHNIQUE: Multiple contiguous axial images were obtained through the abdomen and pelvis after administration of intravenous contrast. Auto Exposure Controls were utilized during the CT exam to meet ALARA standards for radiation dose reduction. INDICATION: Abdominal pain. COMPARISON: Comparison is made with prior CT abdomen and pelvis from 05/07/2018. FINDINGS: Mass-like density previously described in the right breast is only partially included on today's study. The heart is enlarged. The lung bases are clear apart from some scarring or atelectasis in the left lower lobe. No discrete liver mass is identified. The gallbladder is surgically absent. No biliary ductal dilatation is seen. The pancreas and spleen are unremarkable. No adrenal mass is seen. The right kidney is severely atrophic. Compensatory enlargement of the left kidney is noted. There is no hydronephrosis. The aorta is non-aneurysmal. There is fluid-filled distention to the stomach. There are also multiple fluid-filled dilated small bowel loops. There appear to be more normal-caliber small bowel loops distally, and features are concerning for a small bowel obstruction. The colon is not dilated. Moderate stool in the distal colon is noted. Bladder is unremarkable. There is no free fluid. There is no free air. IMPRESSION: Moderate fluid-filled distention of the stomach and small bowel loops with transition distally. These features are concerning for small bowel obstruction. No abscess formation or free air is detected. Dictated by: Dictated on workstation # [id number]
[2018-08-22] MEDS ORDERED: NS IV 1000 ML 1,000 ML IV SCH (18:12)
--- OUTSIDE RECORDS SUMMARY | 2018-08-22 18:57 | XMS REPORT | Clinical Summary ---
Author Author [facility] Organization [facility] Address Unknown Phone Unavailable Care Team Providers Care Clothing Man Name Role Phone Parvez Rosario MD Unavailable No Pcp, Na PCP Unavailable Source Comments Some departments are not documenting in the electronic medical record. If you d o not see the information that you expected, contact Release of Information in [facility] [employer] Information Management department at [phone] for further assistan ce in locating additional records.[facility] Allergies No Known Allergies Medications End [...] No Pcp, Na Appointment Question 05/29/2018 Telephone [facility] Evangelist Rdz DO 05/26/2018 Emergency Emergency [...] Used Never Smoker Smokeless Tobacco: Never Used Drinks/Week oz/Week Comments Alcohol Use 0 Standard drinks or equivalent 0.0 No Sex Assigned at Date Recorded Not on file Industry Job Start Date Occupation Not on file Not on file Not on file Travel End Travel History Travel Start No recent travel history available. Last Filed Vital Signs Reading Time Taken Comments Vital Sign 147/74 05/26/2018 9:00 PM CDT Blood Pressure 68 06/16/2015 2:22 PM CDT Pulse 36.8 C (98.3 F) 05/26/2018 2:57 PM CDT Temperature - - Respiratory Rate 93% 05/26/2018 9:00 PM CDT Oxygen Saturation - - Inhaled Oxygen Concentration 69.9 kg (154 lb) 05/26/2018 2:57 PM CDT Weight 149.9 cm (4' 11") 05/26/2018 2:57 PM CDT Height 31.1 05/26/2018 2:57 PM CDT Body Mass Index Plan of Treatment Health Maintenance Due Date [...] 1.010 1.003 - 1.035 [facility] [place] POC Urine PH POC 5.5 5.0 - [...] (A) NEG-NEG [facility] Leukocytes POC Specimen Performing Organization Address City/State/Zipcode Phone Number [facility] [address] [place] [address] * US DOPPLER VENOUS W EXTRM LEFT (05/26/2018 5:50 PM CDT) Specimen Left Impressions Performed At Mild subcutaneous edema within [...] 3 VIEWS LEFT (05/26/2018 5:15 PM CDT) Specimen Left Impressions Performed At Soft tissue mass with [...] AM. Performing Organization Address City/State/Zipcode Phone Number [facility] RESULTS * SED RATE (05/26/2018 4:04 PM CDT) Sed Rate -ESR 83 (H) 0 - 30 MM/HR [facility] Specimen Blood Performing Organization Address City/State/Zipcode Phone Number [facility] [address] [place] [address] * CBC AND DIFF (05/26/2018 4:04 PM [...] Basophil Count Specimen Blood Performing Organization Address City/[facility] Phone Number [facility] [address] [place] [address] * C REACTIVE PROTEIN (CRP) (05/26/2018 4:04 PM CDT) Pathologist [facility] C-Reactive 2.28 (H) <1.0 MG/DL [facility] Protein Specimen Blood Performing Organization Address City/[facility] Phone Number [facility] [address] [place] [address] * COMPREHENSIVE METABOLIC PANEL (05/26/2018 4:04 PM [...] (L) >60 mL/min [facility] Comment: [place] The eGFR is not validated for use in drug dosing adjustments.Continue to use estimated creatinine clearance per dosing reference text.Please contact the Clinical Pharmacist for questions. eGFR 59 (L) >60 mL/min [facility] [place] Comment: The eGFR is not validated for use in drug dosing adjustments.Continue to use estimated creatinine clearance per dosing reference text.Please contact the Clinical Pharmacist for questions. 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
--- OUTSIDE RECORDS SUMMARY | 2018-08-22 18:57 | XMS REPORT | Encounter Summary ---
Author Author [facility] Organization [facility] Address Unknown Phone Unavailable Care Team Providers Care Milk Vendor Name Role Phone Parvez Rosario MD Unavailable No Pcp, Na PCP Unavailable Reason for Visit * Reason Comments Wound Check Diabetic wound to L foot Encounter Details Care Team Description Date Type Department Evangelist Rdz DO [address] [facility] [place] [address] 05/26/2018 Emergency [facility] [address] [place] [address] Social History Date Tobacco Use [...] of this encounter Last Filed Vital Signs Reading Time Taken Comments Vital Sign 147/74 05/26/2018 9:00 PM CDT Blood Pressure - - Pulse 36.8 C (98.3 F) 05/26/2018 2:57 PM CDT Temperature - - Respiratory Rate 93% 05/26/2018 9:00 PM CDT Oxygen Saturation - - Inhaled Oxygen Concentration 69.9 kg (154 lb) 05/26/2018 2:57 PM CDT Weight 149.9 cm (4' 11") 05/26/2018 2:57 PM CDT Height 31.1 05/26/2018 2:57 PM CDT Body Mass Index documented in this encounter Discharge Instructions * Instructions* Luke Coel MD - 05/26/2018 You were seen in the ER for a foot wound. We obtained labs and imaging. We hav e prescribed an antibiotic. Please take as prescribed. Please follow-up with a specialist regarding removal. Please return to the ER if any of your symptoms acutely worsen. * Attachments The following attachments cannot be sent through Care Everywhere.* Skin Infection, Cellulitis ([place]) documented in this encounter Medications at Time [...] of this encounter ED Notes * Love Cardona RN - 05/26/2018 9:32 PM CDT Pt verbalizes discharge instructions. PIV removed. Prescriptions given. No furth er questions. VSS. AA&Ox4. Ambulated without assistance. * Payton Lester RN - 05/26/2018 7:27 PM CDT Pt family states pt c/o painful urination, recently on abx for UTI. Per family, pt has been stating she has to urinate for two hours but has been unable to, fam melinda concerned for UTI. Dr. Cole and primary RN notified. Orders for straight cath and urine dip obtained. * Love Cardona RN - 05/26/2018 4:40 PM CDT I have reviewed the notes, assessment, and/or procedures performed by Kim murillo and concur with her/his documentation unless otherwise noted. * Kim Cavanaugh - 05/26/2018 4:38 PM CDT Pt is a 77 y.o. female who presents to ED with CC of non-healing left foot wound that has worsened this week. Pt has a hx of diabetes, cancer, and eye trauma. P er Pt's family, she lives alone and home health visits her everyday and stays ov ernight and under-reported the severity of wound, they report that it was cleane d and covered w/ Vaseline. Wound is 2 years old, Pt consulted an orthopedic surg [place] last year but they were unable to perform surgery d/t poor vascular status o f leg. Dr. Bueno present for evaluation. Pt is hard of hearing and is a poor h istorian of care. Pt. is A/Ox4. VSS. NAD. [...] that it is been present for a l ahsan time and she has been receiving wound care. They noticed last night that it appeared dark in color and she had some redness around it. They report overnig ht that it acutely worsened. They deny that she has had any fevers or chills. They deny any new trauma that they are aware of. She does note some localized t enderness. Review of Systems: Review of Systems Constitutional: Negative for activity change, appetite change and fever. HENT: Negative for congestion, drooling, rhinorrhea and tinnitus. Respiratory: Negative for cough, chest tightness and shortness of breath. Cardiovascular: Negative for chest pain, palpitations and leg swelling. Gastrointestinal: Negative for abdominal pain, constipation, diarrhea, nausea an d vomiting. Genitourinary: Negative for dysuria, frequency and urgency. Musculoskeletal: Positive for arthralgias. Foot pain Skin: Negative for rash. Neurological: Negative for dizziness, syncope, light-headedness, numbness and he adaches. Hematological: Negative for adenopathy. All other systems reviewed and are negative. Allergies: Patient has no known allergies. Past Medical History: Past Medical History: Diagnosis Date Cancer (HCC) 2004 S/P Radiation Eye trauma OS ? age 42ish Past Surgical History: Past Surgical History: Procedure Laterality Date COLON SURGERY EAR SURGERY HX CATARACT REMOVAL 1990/1991 OU HYSTERECTOMY TOE SURGERY Pertinent medical/surgical history [...] -- 147/74 -- -- 72 93 % 05/26/182029 -- 159/68 -- -- 67 94 % [...] -- 166/77 -- -- 70 95 % 05/26/18 1457 36.8 C (98.3 F) 158/61 -- 14 PER MINUTE 66 100 % MM Physical Exam: Physical Exam Constitutional: She is oriented to person, place, and time. She appears well-dev eloped and well-nourished. No distress. HENT: Head: Normocephalic and atraumatic. Mouth/Throat: Oropharynx is clear and moist. Eyes: Pupils are equal, round, and reactive to light. Conjunctivae and EOM are n ormal. Neck: Neck supple. Cardiovascular: Normal rate, regular rhythm, normal heart sounds and intact dist al pulses. Pulmonary/Chest: Effort normal and breath sounds normal. No respiratory distress . She has no wheezes. She has no rales. Abdominal: Soft. Bowel sounds are normal. She exhibits no distension. There is n o tenderness. Musculoskeletal: Normal range of motion. She exhibits edema (1+ pitting edema in the left lower extremity which is greater than the right.) and tenderness (Tend erness over her left lateral foot wound. Large growth over the left lateral asp ect of her foot.). Neurological: She is alert and oriented to person, place, and time. Skin: Skin is warm and dry. Capillary refill takes less than 2 seconds. No eryth tammy. Nursing note and vitals reviewed. Laboratory Results: [...] Turbidity POC CLEAR CLEAR-CLEAR Final Urine Specific [facility] POC 1.010 1.003 - 1.035 Final Urine [...] and formulated the interpretations and opinions expressed i n this report Finalized by Genaro Treviño M.D. on 05/26/2018 5:54 PM. Dictated by Janelle bellamy M.D. on 05/26/2018 5:48 PM. FOOT COMP MIN 3 VIEWS LEFT (Results Pending) EKG: Sinus rhythm, rate 70, ME 164, QRS 80, QTc 398, no STEMI. ED Course: Patient was evaluated by resident and attending for left foot wound. It did not appear overtly infected but labs were obtained. A ESR and CRP was elevated. X- ray without bony erosions. Ultrasound without DVT. Patient was placed on Augm entin and was advised to follow-up with her [...] Disposition Discharge Dpt [facility], Family [facility] [address] [facility] [id number] [address] [facility] [id number] Schedule an appointment as soon as possible for a visit in 1 week Medications: Discharge Medication List as of 05/26/2018 7:02 PM Procedure Notes: Procedures Attestation / Supervision: Luke Cole MD ATTESTATION I personally observed the resident performing the E/M, discussed case with resid ent, and concur with resident documentation of history, [...] 1.010 1.003 - 1.035 [facility] POC Urine PH POC 5.5 5.0 - [...] City/State/Zipcode Phone Number [facility] [address] [place] [address] * US DOPPLER VENOUS W EXTRM LEFT [...] (L) >60 mL/min [facility] Comment: [place] The eGFR is not validated for use in drug dosing adjustments.Continue to use estimated creatinine clearance per dosing reference text.Please contact the Clinical Pharmacist for questions. eGFR 59 (L) >60 mL/min [facility] [place] Comment: The eGFR is not validated for use in drug dosing adjustments.Continue to use estimated creatinine clearance per dosing reference text.Please contact the Clinical Pharmacist for questions. Specimen Blood Performing Organization Address City/[facility]/Zipcode Phone Number [facility] [address] [place] [address] * SED RATE (05/26/2018 4:04 PM CDT) Sed Rate -ESR 83 (H) 0 - 30 MM/HR MAIN [facility] Specimen Blood Performing Organization Address City/[facility]/Zipcode Phone Number [facility] [address] [place] [address] * C REACTIVE PROTEIN (CRP) (05/26/2018 4:04 PM CDT) C-Reactive 2.28 (H) <1.0 MG/DL MAIN [facility] Protein Specimen Blood Performing Organization Address City/[facility]/Zipcode Phone Number [facility] [address] [place] [address] * CBC AND DIFF (05/26/2018 4:04 PM [...] Blood Performing Organization Address City/State/Zipcode Phone Number [facility] [address] [place] [address] * ECG-SCAN (05/26/2018 12:00 AM CDT) Narrative [...] mg, Oral, ONCE, 1 dose, Tue05/26/18 at 211405/26/2018 9:11 PM CDT 50 mg traMADol (ULTRAM) tablet 50 mg Given 50 mg, Oral, ONCE, 1 dose, Tue05/26/18 at 2114 documented in this encounter
--- OUTSIDE RECORDS SUMMARY | 2018-08-22 18:57 | XMS REPORT | Encounter Summary ---
Author Author [facility] Organization [facility] Address Unknown Phone Unavailable Care Team Providers Care Baffle Installer Name Role Phone Parvez Rosario MD Unavailable No Pcp, Na PCP Unavailable Reason for Visit * Reason Comments Appointment Question Encounter Details Care Team Description Date Type Department No Pcp, Na Appointment Question 05/29/[address] [address] Social History Date Tobacco Use [...] her PCP. Reviewed home care instructions with Case ramirez from ED. No further needs. * Telephone Encounter - Radha Elliott - 05/29/2018 12:49 PM CDT Ella requesting a call back in regards to an ED f/u and how to care for callul itis. [facility] [phone] *Pt. has not established care with [facility] yet. * Telephone Encounter - Radha Elliott - 05/29/2018 9:52 AM CDT Jazzy wallace pt. was seen in the ED on Tuesday and they informed her to schedule an appointment with [facility]. pt. has a provider in [place] and was wonder ing if that is okay to do instead. M [id number] documented in this encounter Plan of Treatment Not on filedocumented as of this encounter Visit Diagnoses Not on filedocumented in this encounter
--- OUTSIDE RECORDS SUMMARY | 2018-08-22 19:02 | XMS REPORT | Continuity of Care Document ---
Author Organization Unknown Address Unknown Allergies Active Description Code Type Severity Reaction Onset Reported/Identified Relationship to Patient Clinical Status Yes NO KNOWN DRUG ALLERGIES UNKNOWN UNKNOWN Yes No Known Drug Allergies [id number] Drug Allergy Unknown N/A 06/11/2018 Medications There is no data. Problems Date Dx Coded Attending Type Code Diagnosis Diagnosed By 12/20/2013 RANDYDANNY SHUKLA N Ot 356.9 12/20/2013 RANDY, BOBAN N [...] Ot V58.69 12/30/2014 Ot V67.1 12/30/2014 RANDY, REGINALDOAN N Ot 356.9 12/30/2014 RANDY, BOBAN N [...] 12/02/2015 DANNY PADILLA N Ot Z79.899 OTHER LONGTERM (CURRENT) DRUG THERAPY 12/02/2015 DANNY PADILLA N [...] 12/08/2015 DANNY PADILLA N Ot Z79.899 OTHER LAN ADMINISTRATOR (CURRENT) DRUG THERAPY 12/08/2015 DANNY PADILLA N [...] 12/23/2015 DANNY PADILLA N Ot Z79.899 OTHER LAN ADMINISTRATOR (CURRENT) DRUG THERAPY 12/23/2015 DANNY PADILLA N [...] 12/31/2015 DANNY PADILLA N Ot Z79.899 OTHER LAN ADMINISTRATOR (CURRENT) DRUG THERAPY 12/31/2015 RANDYDANNY SHUKLA N Ot Z85.3 PERSONAL HISTORY OF MALIGNANT NEOPLASM O 12/31/2015 DANNY PADILLA N Ot Z92.3 PERSONAL HISTORY OF IRRADIATION 09/17/2016 Ruiz CARRILLO, Carlos Gamez L90.0 Lichen sclerosus et atrophicus 12/10/2016 DANNY PADILLA Ot E08.40 DIABETES DUE TO UNDERLYING CONDITION W D 12/10/2016 DANNY PADILLA Kodi Ot G62.9 POLYNEUROPATHY, UNSPECIFIED 12/10/2016 DANNY PADILLA Kodi Ot Z08 ENCNTR FOR FOLLOW-UP EXAM AFTER TRTMT FO 12/10/2016 DANNY PADILLA Kodi Ot Z79.899 OTHER LAN ADMINISTRATOR (CURRENT) DRUG THERAPY 12/10/2016 DANNY PADILLA Kodi Ot Z85.3 PERSONAL HISTORY OF MALIGNANT NEOPLASM O 12/10/2016 DANNY PADILLA Kodi Ot Z92.3 PERSONAL HISTORY OF IRRADIATION 01/14/2017 Ruiz CARRILLO, Carlos Gamez N32.81 Overactive Bladder 01/23/2017 Ot 356.9 IDIO PERIPH NEURPTHY NOS 01/23/2017 Ot V10.3 HX OF BREAST MALIGNANCY 01/23/2017 Ot V58.66 LONG-TERM (CURRENT) USE OF ASPIRIN 01/23/2017 Ot V58.69 OTH MED,LT,CURRENT USE 01/23/2017 Ot V67.1 RADIOTHERAPY FOLLOW- UP 01/23/2017 DANNY PADILLA N Ot 356.9 IDIO [...] (CURRENT) USE OF ASPIRIN 01/23/2017 DANNY PADILLA Ot V58.69 OTH MED,LT,CURRENT USE 01/23/2017 DANNY PADILLA Ot V67.1 RADIOTHERAPY FOLLOW-UP 01/23/2017 DANNY PADILLA Ot E08.40 DIABETES DUE TO UNDERLYING CONDITION W D 01/23/2017 DANNY PADILLA Ot G62.9 POLYNEUROPATHY, UNSPECIFIED 01/23/2017 DANNY PADILLA N Ot Z08 ENCNTR FOR FOLLOW-UP EXAM AFTER TRTMT FO 01/23/2017 DANNY PADILLA N Ot Z79.899 OTHER LAN ADMINISTRATOR (CURRENT) DRUG THERAPY 01/23/2017 DANNY PADILLA N Ot Z85.3 PERSONAL HISTORY OF MALIGNANT NEOPLASM O 01/23/2017 DANNY PADILLA N Ot Z92.3 PERSONAL HISTORY OF IRRADIATION 01/23/2017 DANNY PADILLA Ot E08.40 DIABETES DUE TO UNDERLYING CONDITION W D 01/23/2017 DANNY PADILLA Ot G62.9 POLYNEUROPATHY, UNSPECIFIED 01/23/2017 DANNY PADILLA N Ot Z08 ENCNTR FOR FOLLOW-UP EXAM AFTER TRTMT FO 01/23/2017 DANNY PADILLA Ot Z79.899 OTHER LONGTERM (CURRENT) DRUG THERAPY 01/23/2017 DANNY PADILLA N Ot Z85.3 PERSONAL HISTORY OF MALIGNANT NEOPLASM O 01/23/2017 DANNY PADILLA N Ot Z92.3 PERSONAL HISTORY OF IRRADIATION 01/23/2017 DANNY PADILLA Ot E08.40 DIABETES DUE TO UNDERLYING CONDITION W D 01/23/2017 DANNY PADILLA Ot G62.9 POLYNEUROPATHY, UNSPECIFIED 01/23/2017 DANNY PADILLA N Ot Z08 ENCNTR FOR FOLLOW-UP EXAM AFTER TRTMT FO 01/23/2017 DANNY PADILLA N Ot Z79.899 OTHER LONGTERM (CURRENT) DRUG THERAPY 01/23/2017 DANNY PADILLA N Ot Z85.3 PERSONAL HISTORY OF MALIGNANT NEOPLASM O 01/23/2017 DANNY PADILLA N Ot Z92.3 PERSONAL HISTORY OF IRRADIATION 01/24/2017 DANISH CARRILLO, MARYANN P Ot E11.9 TYPE 2 DIABETES MELLITUS WITHOUT [...] EPISTAXIS 01/24/2017 MARYANN PENG MD Ot Z79.82 LAN ADMINISTRATOR (CURRENT) USE OF ASPIRIN 01/26/2017 MARYANN PENG [...] EPISTAXIS 01/26/2017 MARYANN PENG MD Ot Z79.82 LAN ADMINISTRATOR (CURRENT) USE OF ASPIRIN 02/02/2017 DANNY PADILLA Ot E08.40 DIABETES DUE TO UNDERLYING CONDITION W D 02/02/2017 DANNY PADILLA Ot G62.9 POLYNEUROPATHY, UNSPECIFIED 02/02/2017 DANNY PADILLA Ot Z08 ENCNTR FOR FOLLOW-UP EXAM AFTER TRTMT FO 02/02/2017 DANNY PADILLA Ot Z79.899 OTHER LAN ADMINISTRATOR (CURRENT) DRUG THERAPY 02/02/2017 DANNY PADILLA Ot Z85.3 PERSONAL HISTORY OF MALIGNANT NEOPLASM O 02/02/2017 DANNY PADILLA Ot Z92.3 PERSONAL HISTORY OF IRRADIATION 02/04/2017 DANNY PADILLA N Ot E08.40 DIABETES DUE TO UNDERLYING CONDITION W D 02/04/2017 DANNY PADILLA N Ot G62.9 POLYNEUROPATHY, UNSPECIFIED 02/04/2017 RANDY DANNY N Ot Z08 ENCNTR FOR FOLLOW-UP EXAM AFTER TRTMT FO 02/04/2017 DANNY PADILLA N Ot Z79.899 OTHER LAN ADMINISTRATOR (CURRENT) DRUG THERAPY 02/04/2017 RANDY REGINALDOKALLI N Ot Z85.3 PERSONAL HISTORY OF MALIGNANT NEOPLASM O 02/04/2017 RANDY REGINALDOKALLI N Ot Z92.3 PERSONAL HISTORY OF IRRADIATION 02/23/2017 Ruiz CARRILLO, Carlos Gamez R15.9 Fecal incontinence 03/09/2017 RANDY DANNY N Ot E08.40 DIABETES DUE TO UNDERLYING CONDITION W D 03/09/2017 DANNY PADILLA N Ot G62.9 POLYNEUROPATHY, UNSPECIFIED 03/09/2017 RANDY DANNY N Ot Z08 ENCNTR FOR FOLLOW-UP EXAM AFTER TRTMT FO 03/09/2017 RANDY REGINALDOKALLI N Ot Z79.899 OTHER LAN ADMINISTRATOR (CURRENT) DRUG THERAPY 03/09/2017 RANDY REGINALDOKALLI N Ot Z85.3 PERSONAL HISTORY OF MALIGNANT NEOPLASM O 03/09/2017 RANDY, DANNY N Ot Z92.3 PERSONAL HISTORY OF IRRADIATION 03/10/2017 RANDY REGINALDOKALLI N Ot E08.40 DIABETES DUE TO UNDERLYING CONDITION W D 03/10/2017 DANNY PADILLA Kodi Ot G62.9 POLYNEUROPATHY, UNSPECIFIED 03/10/2017 RANDY DANNY N Ot Z08 ENCNTR FOR FOLLOW-UP EXAM AFTER TRTMT FO 03/10/2017 RANDY DANNY N Ot Z79.899 OTHER LAN ADMINISTRATOR (CURRENT) DRUG THERAPY 03/10/2017 RANDY DANNY N [...] REGINALDOKALLI Kodi Ot 715.89 OSTEOARTHROSIS-MULT SITE 03/07/2018 DANNY PADILLA Kodi Ot V10.3 HX OF BREAST MALIGNANCY 03/07/2018 DANNY PADILLA N Ot V58.66 LONG-TERM (CURRENT) USE OF ASPIRIN 03/07/2018 DANNY PADILLA Kodi Ot V58.69 OTH MED,LT,CURRENT USE 03/07/2018 RANDY REGINALDOKALLI N Ot V67.1 RADIOTHERAPY FOLLOW-UP 03/07/2018 RANDY DANNY Mariee Ot E08.40 DIABETES DUE TO UNDERLYING CONDITION W D 03/07/2018 RANDY DANNY N Ot G62.9 POLYNEUROPATHY, UNSPECIFIED 03/07/2018 RANDY DANNY N Ot Z08 ENCNTR FOR FOLLOW-UP EXAM AFTER TRTMT FO 03/07/2018 RANDY DANNY N Ot Z79.899 OTHER LONGTERM (CURRENT) DRUG THERAPY 03/07/2018 RANDY DANNY N Ot Z85.3 PERSONAL HISTORY OF MALIGNANT NEOPLASM O 03/07/2018 RANDYDANNY N Ot Z92.3 PERSONAL HISTORY OF IRRADIATION 03/07/2018 RANDYDANNY N Ot E08.40 DIABETES DUE TO UNDERLYING CONDITION W D 03/07/2018 RANDY DANNY N Ot G62.9 POLYNEUROPATHY, UNSPECIFIED 03/07/2018 RANDY DANNY N Ot Z08 ENCNTR FOR FOLLOW-UP EXAM AFTER TRTMT FO 03/07/2018 RANDY DANNY N Ot Z79.899 OTHER LAN ADMINISTRATOR (CURRENT) DRUG THERAPY 03/07/2018 RANDY DANNY N [...] 03/07/2018 DANNY PADILLA Kodi Ot Z79.899 OTHER LAN ADMINISTRATOR (CURRENT) DRUG THERAPY 03/07/2018 RANDY DANNY N Ot Z85.3 PERSONAL HISTORY OF MALIGNANT NEOPLASM O 03/07/2018 RANDY DANNY Mariee Ot Z92.3 PERSONAL HISTORY OF IRRADIATION 03/08/2018 DANNY PADILLA Kodi Ot 356.9 IDIO PERIPH NEURPTHY NOS 03/08/2018 RANDY DANNY N Ot 715.89 OSTEOARTHROSIS-MULT SITE 03/08/2018 RANDY REGINALDOKALLI Kodi Ot V10.3 HX OF BREAST MALIGNANCY 03/08/2018 RANDY DANNY N Ot V58.66 LONG-TERM (CURRENT) USE OF ASPIRIN 03/08/2018 RANDY DANNY N Ot V58.69 OTH MED,LT,CURRENT USE 03/08/2018 DANNY PADILLA N Ot V67.1 RADIOTHERAPY FOLLOW-UP 03/08/2018 DANNY PADILLA Kodi Ot 356.9 IDIO PERIPH NEURPTHY NOS 03/08/2018 RANDY DANNY N Ot 715.89 OSTEOARTHROSIS-MULT SITE 03/08/2018 RANDY DANNY N Ot V10.3 HX OF BREAST MALIGNANCY 03/08/2018 RANDY DANNY N Ot V58.66 LONG-TERM (CURRENT) USE OF ASPIRIN 03/08/2018 RANDY DANNY N Ot V58.69 OTH MED,LT,CURRENT USE 03/08/2018 RANDY REGINALDOKALLI N Ot V67.1 RADIOTHERAPY FOLLOW-UP 03/08/2018 RANDY REGINALDOKALLI Kodi Ot E08.40 DIABETES DUE TO UNDERLYING CONDITION W D 03/08/2018 RANDY REGINALDOKALLI Kodi Ot G62.9 POLYNEUROPATHY, UNSPECIFIED 03/08/2018 RANDY DANNY Mariee Ot Z08 ENCNTR FOR FOLLOW-UP EXAM AFTER TRTMT FO 03/08/2018 RANDY DANNY Mariee Ot Z79.899 OTHER LAN ADMINISTRATOR (CURRENT) DRUG THERAPY 03/08/2018 RANDY BOBAN N Ot Z85.3 PERSONAL HISTORY OF MALIGNANT NEOPLASM O 03/08/2018 DANNY PADILLA Ot Z92.3 PERSONAL HISTORY OF IRRADIATION 03/08/2018 DANNY PADILLA Ot E08.40 DIABETES DUE TO UNDERLYING CONDITION W D 03/08/2018 DANNY PADILLA Ot G62.9 POLYNEUROPATHY, UNSPECIFIED 03/08/2018 DANNY PADILLA Ot Z08 ENCNTR FOR FOLLOW-UP EXAM AFTER TRTMT FO 03/08/2018 DANNY PADILLA Ot Z79.899 OTHER LONGTERM (CURRENT) DRUG THERAPY 03/08/2018 DANNY PADLILA Ot Z85.3 PERSONAL HISTORY OF MALIGNANT NEOPLASM O 03/08/2018 DANNY PADILLA Ot Z92.3 PERSONAL HISTORY OF IRRADIATION 03/08/2018 DANNY PADILLA Ot E08.40 DIABETES DUE TO UNDERLYING CONDITION W D 03/08/2018 DANNY PADILLA Ot G62.9 POLYNEUROPATHY, UNSPECIFIED 03/08/2018 DANNY PADILLA Ot Z08 ENCNTR FOR FOLLOW-UP EXAM AFTER TRTMT FO 03/08/2018 DANNY PADILLA Ot Z79.899 OTHER LONGTERM (CURRENT) DRUG THERAPY 03/08/2018 DANNY PADILLA Ot Z85.3 PERSONAL HISTORY OF [...] MELLITUS WITH DIABETIC N 05/07/2018 RON LOPEZ MD, Ot E78.00 PURE HYPERCHOLESTEROLEMIA, UNSPECIFIED 05/07/2018 RON [...] PAIN 05/07/2018 RON LOPEZ MD, Ot Z79.4 LONGTERM (CURRENT) USE OF INSULIN 05/07/2018 RON LOPEZ MD Ot Z79.51 LONGTERM (CURRENT) USE OF INHALED STERO 05/07/2018 RON LOPEZ MD, Ot Z79.82 LAN ADMINISTRATOR (CURRENT) USE OF ASPIRIN 05/07/2018 RON LOPEZ MD Ot Z85.3 PERSONAL HISTORY OF MALIGNANT NEOPLASM O 05/07/2018 RON LOPEZ MD Ot Z87.19 PERSONAL HISTORY OF OTHER DISEASES OF TH 05/07/2018 RON LOPEZ MD Ot Z92.21 PERSONAL HISTORY OF ANTINEOPLASTIC CHEMO 05/07/2018 RON LOPEZ MD Ot Z98.890 OTHER SPECIFIED POSTPROCEDURAL STATES 05/11/2018 RON LOPEZ MD, Ot E11.40 TYPE 2 DIABETES MELLITUS [...] PAIN 05/11/2018 RON LOPEZ MD, Ot Z79.4 LAN ADMINISTRATOR (CURRENT) USE OF INSULIN 05/11/2018 RON LOPEZ MD, Ot Z79.51 LONGTERM (CURRENT) USE OF INHALED STERO 05/11/2018 RON LOPEZ MD, Ot Z79.82 LAN ADMINISTRATOR (CURRENT) USE OF ASPIRIN 05/11/2018 RON LOPEZ MD, Ot Z85.3 PERSONAL HISTORY OF MALIGNANT NEOPLASM O 05/11/2018 RON LOPEZ MD, Ot Z87.19 PERSONAL HISTORY OF OTHER DISEASES OF TH 05/11/2018 RON LOPEZ MD, Ot Z92.21 PERSONAL HISTORY OF ANTINEOPLASTIC CHEMO 05/11/2018 RON LOPEZ MD, Ot Z98.890 OTHER SPECIFIED POSTPROCEDURAL STATES 05/15/2018 DIYA CARRILLO, ERENDIRA Keith Ot E87.5 HYPERKALEMIA 05/17/2018 ERENDIRA KEANE MD [...] FO 06/11/2018 DANNY PADILLA Ot Z79.899 OTHER LONGTERM (CURRENT) DRUG THERAPY 06/11/2018 DANNY PADILLA Ot Z85.3 PERSONAL HISTORY OF MALIGNANT NEOPLASM O 06/11/2018 RANDYDANNY SHUKLA Kodi Ot Z92.3 PERSONAL HISTORY OF IRRADIATION [...] Ot R31.9 HEMATURIA, UNSPECIFIED 06/16/2018 ABHISHEK SAGE MD, Ot R32 UNSPECIFIED URINARY INCONTINENCE 06/16/2018 ABHISHEK SAGE MD, Ot Z85.3 PERSONAL HISTORY OF MALIGNANT NEOPLASM O 06/16/2018 ABHISHEK SAGE MD, Ot Z86.19 PERSONAL HISTORY OF OTHER INFECTIOUS AND 06/16/2018 ABHISHEK SAGE MD, Ot Z92.21 PERSONAL HISTORY OF ANTINEOPLASTIC CHEMO 06/16/2018 ABHISHEK SAGE MD, Ot Z92.3 PERSONAL HISTORY OF IRRADIATION 06/16/2018 ABHISHEK SAGE MD, Ot Z97.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 06/19/2018 DORIS ESPARZA DO, Ot I10 ESSENTIAL (PRIMARY) HYPERTENSION 06/19/2018 DORIS ESPARZA DO, Ot R04.0 EPISTAXIS 06/19/2018 DORIS ESPARZA DO, Ot Z79.01 LONGTERM (CURRENT) USE OF ANTICOAGULANT 06/19/2018 DORIS ESPARZA DO, Ot Z79.4 LAN ADMINISTRATOR (CURRENT) USE OF INSULIN 06/19/2018 DORIS ESPARZA DO, Ot Z79.51 LAN ADMINISTRATOR (CURRENT) USE OF INHALED STERO 06/19/2018 DORIS ESPARZA DO, Ot Z79.82 LAN ADMINISTRATOR (CURRENT) USE OF ASPIRIN 06/19/2018 DORIS ESPARZA DO, Ot Z82.49 FAMILY HX OF ISCHEM HEART DIS AND OTH DI 06/19/2018 DORIS ESPARZA DO, Ot Z85.3 PERSONAL HISTORY OF MALIGNANT NEOPLASM O 06/19/2018 DORIS ESPARZA DO, Ot Z86.19 PERSONAL HISTORY OF OTHER INFECTIOUS AND 06/19/2018 DORIS ESPARZA DO, Ot Z87.19 PERSONAL HISTORY OF OTHER DISEASES OF TH 06/19/2018 DORIS ESPARZA DO, Ot Z87.448 PERSONAL HISTORY OF OTHER DISEASES OF UR 06/19/2018 DORIS ESPARZA DO Ot Z92.21 PERSONAL HISTORY OF ANTINEOPLASTIC CHEMO 06/19/2018 DORIS ESPARZA DO Ot Z98.890 OTHER SPECIFIED POSTPROCEDURAL STATES 06/20/2018 SALLY , GABRIEL Ot E11.40 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 06/20/2018 [facility], GABRIEL Ot E11.621 TYPE 2 DIABETES MELLITUS WITH FOOT ULCER 06/20/2018 ZAVALA , GABRIEL Ot E78.00 PURE HYPERCHOLESTEROLEMIA, UNSPECIFIED 06/20/2018 [facility], GABRIEL Ot F41.9 ANXIETY DISORDER, UNSPECIFIED 06/20/2018 [facility], GABRIEL Ot G47.30 SLEEP APNEA, UNSPECIFIED 06/20/2018 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, GABRIEL Ot Z79.01 LONGTERM (CURRENT) USE OF ANTICOAGULANT 06/20/2018 [facility], GABRIEL Ot Z79.4 LAN ADMINISTRATOR (CURRENT) USE OF INSULIN 06/20/2018 [facility], GABRIEL Ot Z79.82 LAN ADMINISTRATOR (CURRENT) USE OF ASPIRIN 06/20/2018 [facility], GABRIEL Ot Z82.49 FAMILY HX OF ISCHEM HEART DIS AND OTH DI 06/20/2018 [facility], GABRIEL Ot Z85.3 PERSONAL HISTORY OF MALIGNANT NEOPLASM O 06/20/2018 [facility], GABRIEL Ot Z87.19 PERSONAL HISTORY OF OTHER DISEASES OF TH 06/20/2018 SALLY SLOAN, GABRIEL Ot Z87.448 PERSONAL HISTORY OF OTHER DISEASES OF UR 06/20/2018 SALLY , GABRIEL Ot Z92.21 PERSONAL HISTORY OF ANTINEOPLASTIC CHEMO 06/20/2018 SALLY , GABRIEL Ot Z98.890 OTHER SPECIFIED POSTPROCEDURAL STATES 06/21/2018 DORIS ESPARZA DO, Ot E11.40 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 06/21/2018 DORIS ESPARZA DO Ot E78.00 PURE HYPERCHOLESTEROLEMIA, UNSPECIFIED 06/21/2018 DORIS ESPARZA DO Ot F41.9 ANXIETY DISORDER, UNSPECIFIED 06/21/2018 DORIS ESPARZA DO Ot G47.30 SLEEP APNEA, UNSPECIFIED 06/21/2018 DORIS ESPARZA DO, 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 06/21/2018 DORIS ESPARZA DO, Ot I10 ESSENTIAL (PRIMARY) HYPERTENSION 06/21/2018 DORIS ESPARZA DO, Ot R04.0 EPISTAXIS 06/21/2018 DORIS ESPARZA DO, Ot Z79.01 LAN ADMINISTRATOR (CURRENT) USE OF ANTICOAGULANT 06/21/2018 DORIS ESPARZA DO, Ot Z79.4 LONGTERM (CURRENT) USE OF INSULIN 06/21/2018 DORIS ESPARZA DO, Ot Z79.51 LAN ADMINISTRATOR (CURRENT) USE OF INHALED STERO 06/21/2018 DORIS ESPARZA DO, Ot Z79.82 LAN ADMINISTRATOR (CURRENT) USE OF ASPIRIN 06/21/2018 DORIS ESPARZA [...] OTHER DISEASES OF UR 06/21/2018 DORIS ESPARZA DO, Ot Z92.21 PERSONAL HISTORY OF ANTINEOPLASTIC CHEMO 06/21/2018 DORIS ESPARZA DO, Ot Z98.890 OTHER SPECIFIED POSTPROCEDURAL STATES 06/22/2018 GABRIEL ZAVALA DO, Ot E11.40 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 06/22/2018 GABRIEL ZAVALA DO, Ot E11.621 TYPE 2 DIABETES MELLITUS WITH FOOT ULCER 06/22/2018 GABRIEL ZAVALA DO Ot E78.00 PURE HYPERCHOLESTEROLEMIA, UNSPECIFIED 06/22/2018 GABRIEL ZAVALA DO Ot F41.9 ANXIETY DISORDER, UNSPECIFIED 06/22/2018 GABRIEL ZAVALA DO, Ot G47.30 SLEEP APNEA, UNSPECIFIED 06/22/2018 GABRIEL ZAVALA DO, Ot 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 06/22/2018 GABRIEL ZAVALA DO, Ot I10 ESSENTIAL (PRIMARY) HYPERTENSION 06/22/2018 GABRIEL ZAVALA DO, Ot 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 06/22/2018 GABRIEL ZAVALA DO, Ot Z79.01 LONGTERM (CURRENT) USE OF ANTICOAGULANT 06/22/2018 GABRIEL ZAVALA DO, Ot Z79.4 LAN ADMINISTRATOR (CURRENT) USE OF INSULIN 06/22/2018 SALLY SLOAN, GABRIEL Ot Z79.82 LAN ADMINISTRATOR (CURRENT) USE OF ASPIRIN 06/22/2018 ZAVALA , GABRIEL Ot Z82.49 FAMILY HX OF ISCHEM HEART DIS AND OTH DI 06/22/2018 SALLY SLOAN, GABRIEL Ot Z85.3 PERSONAL HISTORY OF MALIGNANT NEOPLASM O 06/22/2018 ZAVALA , GABRIEL Ot Z87.19 PERSONAL HISTORY OF OTHER DISEASES OF TH 06/22/2018 SALLY SLOAN, GABRIEL Ot Z87.448 PERSONAL HISTORY OF OTHER DISEASES OF UR 06/22/2018 SALLY SLOAN, GABRIEL Ot Z92.21 PERSONAL HISTORY OF ANTINEOPLASTIC CHEMO 06/22/2018 SALLY , GABRIEL Ot Z98.890 OTHER SPECIFIED POSTPROCEDURAL STATES 06/23/2018 MARYANN PENG MD Ot E11.40 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 06/23/2018 MARYANN PENG MD Ot G47.33 OBSTRUCTIVE SLEEP APNEA (ADULT) (PEDIATR 06/23/2018 MARYANN PENG MD Ot I10 ESSENTIAL (PRIMARY) HYPERTENSION 06/23/2018 MARYANN PENG MD Ot K21.9 GASTRO-ESOPHAGEAL 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 06/23/2018 MARYANN PENG MD Ot R04.0 EPISTAXIS 06/23/2018 MARYANN PENG MD Ot Z79.01 LONGTERM (CURRENT) USE OF ANTICOAGULANT 06/23/2018 MARYANN PENG MD Ot Z79.82 LONGTERM (CURRENT) USE OF ASPIRIN 06/23/2018 MARYANN PENG MD Ot Z79.899 OTHER LAN ADMINISTRATOR (CURRENT) DRUG THERAPY 06/23/2018 MARYANN PENG MD Ot Z86.711 PERSONAL HISTORY OF PULMONARY EMBOLISM 06/28/2018 MARYANN PENG MD Ot E11.40 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 06/28/2018 MARYANN PENG MD, Ot G47.33 OBSTRUCTIVE SLEEP APNEA (ADULT) (PEDIATR 06/28/2018 MARYANN PENG MD Ot I10 ESSENTIAL (PRIMARY) HYPERTENSION 06/28/2018 MARYANN PENG MD Ot K21.9 GASTRO-ESOPHAGEAL 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 06/28/2018 MARYANN PENG MD Ot R04.0 EPISTAXIS 06/28/2018 MARYANN PENG MD Ot Z79.01 LONGTERM (CURRENT) USE OF ANTICOAGULANT 06/28/2018 MARYANN PENG MD Ot Z79.82 LAN ADMINISTRATOR (CURRENT) USE OF ASPIRIN 06/28/2018 DANISH CARRILLO, MARYANN Spicer Ot Z79.899 OTHER LAN ADMINISTRATOR (CURRENT) DRUG THERAPY 06/28/2018 DANISH CARRILLO, MARYANN Spicer Ot Z86.711 PERSONAL HISTORY OF PULMONARY EMBOLISM 07/06/2018 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, GABRIEL Ot E11.621 TYPE 2 DIABETES MELLITUS WITH FOOT ULCER 07/06/2018 [facility], GABRIEL Ot E78.00 PURE HYPERCHOLESTEROLEMIA, UNSPECIFIED 07/06/2018 [facility], GABRIEL Ot F41.9 ANXIETY DISORDER, UNSPECIFIED 07/06/2018 [facility], GABRIEL Ot G47.30 SLEEP APNEA, UNSPECIFIED 07/06/2018 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, GABRIEL Ot I10 ESSENTIAL (PRIMARY) HYPERTENSION 07/06/2018 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, GABRIEL Ot Z79.01 LAN ADMINISTRATOR (CURRENT) USE OF ANTICOAGULANT 07/06/2018 [facility], GABRIEL Ot Z79.4 LAN ADMINISTRATOR (CURRENT) USE OF INSULIN 07/06/2018 [facility], GABRIEL Ot Z79.82 LONGTERM (CURRENT) USE OF ASPIRIN 07/06/2018 [facility], GABRIEL Ot Z82.49 FAMILY HX OF ISCHEM HEART DIS AND OTH DI 07/06/2018 [facility], GABRIEL Ot Z85.3 PERSONAL HISTORY OF MALIGNANT NEOPLASM O 07/06/2018 [facility], GABRIEL Ot Z87.19 PERSONAL HISTORY OF OTHER DISEASES OF TH 07/06/2018 [facility] , GABRIEL Ot Z87.448 PERSONAL HISTORY OF OTHER DISEASES OF UR 07/06/2018 [facility] , GABRIEL Ot Z92.21 PERSONAL HISTORY OF ANTINEOPLASTIC CHEMO 07/06/2018 [facility] , GABRIEL Ot Z98.890 OTHER SPECIFIED POSTPROCEDURAL STATES 08/07/2018 PABLITO HOWARD DO Ot E11.40 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 08/07/2018 PABLITO HOWARD DO Ot E78.00 PURE HYPERCHOLESTEROLEMIA, UNSPECIFIED 08/07/2018 PABLITO HOWARD DO, Ot F41.9 ANXIETY DISORDER, UNSPECIFIED 08/07/2018 PABLITO HOWARD DO, Ot G47.30 SLEEP APNEA, UNSPECIFIED 08/07/2018 PABLITO HOWARD DO Ot I10 ESSENTIAL (PRIMARY) HYPERTENSION 08/07/2018 PABLITO HOWARD DO Ot R04.0 EPISTAXIS 08/07/2018 PABLITO HOWARD DO, Ot Z79.01 LAN ADMINISTRATOR (CURRENT) USE OF ANTICOAGULANT 08/07/2018 PABLITO HOWARD DO, Ot Z79.82 LAN ADMINISTRATOR (CURRENT) USE OF ASPIRIN 08/07/2018 PABLITO HOWARD DO, Ot Z79.84 LAN ADMINISTRATOR (CURRENT) USE OF ORAL HYPOGLYC 08/07/2018 PABLITO HOWARD DO, Ot Z82.49 FAMILY HX OF ISCHEM HEART DIS AND OTH DI 08/07/2018 PABLITO HOWARD DO, Ot Z85.3 PERSONAL HISTORY OF MALIGNANT NEOPLASM O 08/07/2018 PABLITO HOWARD DO, Ot Z86.711 PERSONAL HISTORY OF PULMONARY EMBOLISM 08/09/2018 PABLITO HOWARD DO, Ot E11.40 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 08/09/2018 PABLITO HOWARD DO Ot E78.00 PURE HYPERCHOLESTEROLEMIA, UNSPECIFIED 08/09/2018 PABLITO HOWARD DO, Ot F41.9 ANXIETY DISORDER, UNSPECIFIED 08/09/2018 PABLITO HOWARD DO, Ot G47.30 SLEEP APNEA, UNSPECIFIED 08/09/2018 PABLITO HOWARD DO Ot I10 ESSENTIAL (PRIMARY) HYPERTENSION 08/09/2018 PABLITO HOWARD DO, Ot R04.0 EPISTAXIS 08/09/2018 PABLITO HOWARD DO, Ot Z79.01 LAN ADMINISTRATOR (CURRENT) USE OF ANTICOAGULANT 08/09/2018 PABLITO HOWARD DO, Ot Z79.82 LAN ADMINISTRATOR (CURRENT) USE OF ASPIRIN 08/09/2018 PABLITO HOWARD DO, Ot Z79.84 LAN ADMINISTRATOR (CURRENT) USE OF ORAL HYPOGLYC 08/09/2018 PABLITO HOWARD DO, Ot Z82.49 FAMILY HX OF ISCHEM HEART DIS AND OTH DI 08/09/2018 PABLITO HOWARD DO, Ot Z85.3 PERSONAL HISTORY OF MALIGNANT NEOPLASM O 08/09/2018 PABLITO HOWARD DO, Ot Z86.711 PERSONAL HISTORY OF PULMONARY EMBOLISM Procedures Code Description Performed By Performed On [id number] EXCISION OF L FOOT SUBCU/FASCIA, OPEN AP 06/09/2018 Results Test Result Range [...] Automated erythrocyte mean corpuscular hemoglobin concentration measurement (mass/volume) 34 g/dL 32-36 Automated erythrocyte distribution width ratio 12.8 % 10.0- 14.5 Automated blood platelet count (count/volume) 180 10*3/uL [...] Blood monocytes automated count (number/volume) 0.7 10*3 0.0- 1.0 Automated eosinophil count 0.2 10*3/uL 0.0-0.3 Automated [...] Serum or plasma aspartate aminotransferase measurement (enzymatic activity/volume) 16 U/L 5-34 Serum or plasma alanine aminotransferase measurement (enzymatic activity/volume) 21 U/L 0-55 Serum or plasma protein measurement (mass/volume) 7.1 g/dL 6.4-8.2 Serum or plasma albumin measurement (mass/volume) 4.1 g/dL 3.2-4.5 Capillary blood glucose measurement by glucometer (mass/volume) - 03/08/18 00:46 Capillary blood glucose measurement by glucometer (mass/volume) 171 mg/dL 70-110 Capillary blood glucose measurement by glucometer (mass/volume) - 03/08/18 05:21 Capillary blood glucose measurement by glucometer (mass/volume) [...] Automated erythrocyte mean corpuscular hemoglobin concentration measurement (mass/volume) 34 g/dL 32-36 Automated erythrocyte distribution width ratio 13.4 % 10.0- 14.5 Automated blood platelet count (count/volume) 185 10*3/uL [...] Blood monocytes automated count (number/volume) 0.8 10*3 0.0- 1.0 Automated eosinophil count 0.1 10*3/uL 0.0-0.3 Automated [...] glucose measurement by glucometer (mass/volume) - 03/08/18 11:17 Capillary blood glucose measurement by glucometer (mass/volume) 161 mg/dL 70-110 Capillary blood glucose measurement by glucometer (mass/volume) - 03/09/18 00:08 Capillary blood glucose measurement by glucometer (mass/volume) 132 mg/dL 70-110 Capillary blood glucose measurement by glucometer (mass/volume) - 03/09/18 05:06 Capillary blood glucose measurement by glucometer (mass/volume) [...] Automated erythrocyte mean corpuscular hemoglobin concentration measurement (mass/volume) 33 g/dL 32-36 Automated erythrocyte distribution width ratio 13.1 % 10.0- 14.5 Automated blood platelet count (count/volume) 176 10*3/uL [...] Blood monocytes automated count (number/volume) 0.7 10*3 0.0- 1.0 Automated eosinophil count 0.2 10*3/uL 0.0-0.3 Automated [...] glucose measurement by glucometer (mass/volume) - 03/09/18 11:46 Capillary blood glucose measurement by glucometer (mass/volume) 233 mg/dL 70-110 Capillary blood glucose measurement by glucometer (mass/volume) - 03/09/18 16:04 Capillary blood glucose measurement by glucometer (mass/volume) 161 mg/dL 70-110 Capillary blood glucose measurement by glucometer (mass/volume) - 03/09/18 20:42 Capillary blood glucose measurement by glucometer (mass/volume) 167 mg/dL 70-110 Capillary blood glucose measurement by glucometer (mass/volume) - 03/10/18 06:09 Capillary blood glucose measurement by glucometer (mass/volume) 136 mg/dL 70-110 Capillary blood glucose measurement by glucometer (mass/volume) - 03/10/18 11:09 Capillary blood glucose measurement by glucometer (mass/volume) [...] Automated erythrocyte mean corpuscular hemoglobin concentration measurement (mass/volume) 33 g/dL 32-36 Automated erythrocyte distribution width ratio 12.9 % 10.0- 14.5 Automated blood platelet count (count/volume) 189 10*3/uL [...] Blood monocytes automated count (number/volume) 0.8 10*3 0.0- 1.0 Automated eosinophil count 0.3 10*3/uL 0.0-0.3 Automated [...] Serum or plasma aspartate aminotransferase measurement (enzymatic activity/volume) 22 U/L 5-34 Serum or plasma alanine aminotransferase measurement (enzymatic activity/volume) 22 U/L 0-55 Serum or plasma protein [...] gravity of urine by test strip 1.015 1.016-1.022 Urine protein assay by test strip, [...] sediment leukocyte count by microscopy (number/high power field) [HPF] NRG Bacteria detection in urine sediment [...] culture - 05/07/18 20:21 Bacterial urine culture [id number] NRG COLONY COUNT >100,000/ML NRG FTX;REPORTABLE SENSITIVITY REPORTED 05/10/18 15:05 NRG FREE TEXT ENTRY 2 ID REPORTED 05/09/18 16:05 NR RML Sensitivity Panel - 05/07/18 20:21 Gentamicin susceptibility test by minimum inhibitory concentration <= NRG Trimethoprim/sulfamethoxazole susceptibility test by minimum inhibitoryconcentration <= NRG Levofloxacin susceptibility test by minimum inhibitory concentration <= NRG Ampicillin susceptibility test by minimum inhibitory concentration <= NRG Cefazolin susceptibility test by minimum inhibitory [...] Automated erythrocyte mean corpuscular hemoglobin concentration measurement (mass/volume) 34 g/dL 32-36 Automated erythrocyte distribution width ratio 13.2 % 10.0- 14.5 Automated blood platelet count (count/volume) 171 10*3/uL [...] Blood monocytes automated count (number/volume) 0.6 10*3 0.0- 1.0 Automated eosinophil count 0.2 10*3/uL 0.0-0.3 Automated [...] Serum or plasma aspartate aminotransferase measurement (enzymatic activity/volume) 52 U/L 5-34 Serum or plasma alanine aminotransferase measurement (enzymatic activity/volume) 40 U/L 0-55 Serum or plasma protein measurement (mass/volume) 7.9 g/dL 6.4-8.2 Serum or plasma albumin measurement (mass/volume) 4.4 g/dL 3.2-4.5 CALCIUM CORRECTED 9.3 mg/dL 8.5-10.1 Blood lactic acid measurement (moles/volume) - 06/11/18 10:00 Blood lactic acid measurement (moles/volume) 1.08 mmol/L 0.50- 2.00 PROCALCITONIN (PCT) - 06/11/18 10:00 PROCALCITONIN (PCT) [...] sediment leukocyte count by microscopy (number/high power field) RARE NRG Bacteria detection in urine sediment [...] glucose measurement by glucometer (mass/volume) - 06/11/18 16:48 Capillary blood glucose measurement by glucometer (mass/volume) 131 mg/dL 70-110 Capillary blood glucose measurement by glucometer (mass/volume) - 06/11/18 21:56 Capillary blood glucose measurement by glucometer (mass/volume) 109 mg/dL 70-110 Capillary blood glucose measurement by glucometer (mass/volume) - 06/12/18 05:05 Capillary blood glucose measurement by glucometer (mass/volume) [...] glucose measurement by glucometer (mass/volume) - 06/12/18 11:28 Capillary blood glucose measurement by glucometer (mass/volume) 176 mg/dL 70-110 Capillary blood glucose measurement by glucometer (mass/volume) - 06/12/18 15:50 Capillary blood glucose measurement by glucometer (mass/volume) 135 mg/dL 70-110 Capillary blood glucose measurement by glucometer (mass/volume) - 06/12/18 20:14 Capillary blood glucose measurement by glucometer (mass/volume) 112 mg/dL 70-110 Capillary blood glucose measurement by glucometer (mass/volume) - 06/13/18 05:17 Capillary blood glucose measurement by glucometer (mass/volume) [...] Automated erythrocyte mean corpuscular hemoglobin concentration measurement (mass/volume) 33 g/dL 32-36 Automated erythrocyte distribution width ratio 13.5 % 10.0- 14.5 Automated blood platelet count (count/volume) 149 10*3/uL [...] Blood monocytes automated count (number/volume) 0.6 10*3 0.0- 1.0 Automated eosinophil count 0.2 10*3/uL 0.0-0.3 Automated [...] Serum or plasma aspartate aminotransferase measurement (enzymatic activity/volume) 54 U/L 5-34 Serum or plasma alanine aminotransferase measurement (enzymatic activity/volume) 49 U/L 0-55 Serum or plasma protein measurement (mass/volume) 6.4 g/dL 6.4-8.2 Serum or plasma albumin measurement (mass/volume) 3.8 g/dL 3.2-4.5 CALCIUM CORRECTED 9.1 mg/dL 8.5-10.1 Capillary blood glucose measurement by glucometer (mass/volume) - 06/13/18 11:07 Capillary blood glucose measurement by glucometer (mass/volume) 100 mg/dL 70-110 Capillary blood glucose measurement by glucometer (mass/volume) - 06/13/18 15:45 Capillary blood glucose measurement by glucometer (mass/volume) 125 mg/dL 70-110 Methicillin resistant Staphylococcus aureus (MRSA) screening culture - 06/13/18 16:50 MRSA SCREEN RESULT MRSA ISOLATED NRG Capillary blood glucose measurement by glucometer (mass/volume) - 06/13/18 19:50 Capillary blood glucose measurement by glucometer (mass/volume) [...] Automated erythrocyte mean corpuscular hemoglobin concentration measurement (mass/volume) 33 g/dL 32-36 Automated erythrocyte distribution width ratio 13.1 % 10.0- 14.5 Automated blood platelet count (count/volume) 141 10*3/uL [...] Blood monocytes automated count (number/volume) 0.6 10*3 0.0- 1.0 Automated eosinophil count 0.2 10*3/uL 0.0-0.3 Automated [...] Serum or plasma aspartate aminotransferase measurement (enzymatic activity/volume) 50 U/L 5-34 Serum or plasma alanine aminotransferase measurement (enzymatic activity/volume) 50 U/L 0-55 Serum or plasma protein measurement (mass/volume) 6.4 g/dL 6.4-8.2 Serum or plasma albumin measurement (mass/volume) 3.8 g/dL 3.2-4.5 CALCIUM CORRECTED 9.7 mg/dL 8.5-10.1 Capillary blood glucose measurement by glucometer (mass/volume) - 06/14/18 06:04 Capillary blood glucose measurement by glucometer (mass/volume) 113 mg/dL 70-110 Capillary blood glucose measurement by glucometer (mass/volume) - 06/14/18 12:16 Capillary blood glucose measurement by glucometer (mass/volume) 105 mg/dL 70-110 Capillary blood glucose measurement by glucometer (mass/volume) - 06/14/18 17:35 Capillary blood glucose measurement by glucometer (mass/volume) 123 mg/dL 70-110 Capillary blood glucose measurement by glucometer (mass/volume) - 06/14/18 21:13 Capillary blood glucose measurement by glucometer (mass/volume) 124 mg/dL 70-110 Capillary blood glucose measurement by glucometer (mass/volume) - 06/15/18 06:10 Capillary blood glucose measurement by glucometer (mass/volume) [...] Automated erythrocyte mean corpuscular hemoglobin concentration measurement (mass/volume) 34 g/dL 32-36 Automated erythrocyte distribution width ratio 13.3 % 10.0- 14.5 Automated blood platelet count (count/volume) 182 10*3/uL [...] Blood monocytes automated count (number/volume) 0.7 10*3 0.0- 1.0 Automated eosinophil count 0.0 10*3/uL 0.0-0.3 Automated [...] Serum or plasma aspartate aminotransferase measurement (enzymatic activity/volume) 33 U/L 5-34 Serum or plasma alanine aminotransferase measurement (enzymatic activity/volume) 48 U/L 0-55 Serum or plasma protein [...] glucose measurement by glucometer (mass/volume) - 06/15/18 11:36 Capillary blood glucose measurement by glucometer (mass/volume) 122 mg/dL 70-110 Capillary blood glucose measurement by glucometer (mass/volume) - 06/15/18 16:23 Capillary blood glucose measurement by glucometer (mass/volume) 99 mg/dL 70-110 Capillary blood glucose measurement by glucometer (mass/volume) - 06/15/18 21:44 Capillary blood glucose measurement by glucometer (mass/volume) 112 mg/dL 70-110 Capillary blood glucose measurement by glucometer (mass/volume) - 06/16/18 04:56 Capillary blood glucose measurement by glucometer (mass/volume) 77 mg/dL 70-110 Capillary blood glucose measurement by glucometer (mass/volume) - 06/16/18 11:15 Capillary blood glucose measurement by glucometer (mass/volume) 90 mg/dL 70-110 Complete blood count (CBC) with automated white blood cell (WBC) differential - 06/22/18 11:55 Blood leukocytes automated count (number/volume) 7.8 10*3/uL 4.3-11.0 Blood erythrocytes automated count (number/volume) 3.40 10*6/uL 4.35-5.85 Venous blood hemoglobin measurement (mass/volume) 10.9 g/dL 11.5-16.0 Blood hematocrit (volume fraction) 33 % 35-52 Automated erythrocyte mean corpuscular volume 98 [foz_us] 80-99 Automated erythrocyte mean corpuscular hemoglobin (mass per erythrocyte) 32 pg 25-34 Automated erythrocyte mean corpuscular hemoglobin concentration measurement (mass/volume) 33 g/dL 32-36 Automated erythrocyte distribution width ratio 13.0 % 10.0- 14.5 Automated blood platelet count (count/volume) 232 10*3/uL 130-400 Automated blood platelet mean volume measurement 9.7 [foz_us] 7.4-10.4 Automated blood neutrophils/100 leukocytes 70 % 42-75 Automated blood lymphocytes/100 leukocytes 17 % 12-44 Blood monocytes/100 leukocytes 10 % 0-12 Automated blood eosinophils/100 leukocytes 2 % 0-10 Automated blood basophils/100 leukocytes 1 % 0-10 Blood neutrophils automated count (number/volume) 5.5 10*3 1.8-7.8 Blood lymphocytes automated count (number/volume) 1.3 10*3 1.0-4.0 Blood monocytes automated count (number/volume) 0.8 10*3 0.0- 1.0 Automated eosinophil count 0.2 10*3/uL 0.0-0.3 Automated blood basophil count (count/volume) 0.1 10*3/uL 0.0-0.1 PT panel in platelet poor plasma by coagulation assay - 06/22/18 11:55 Prothrombin time (PT) in platelet poor plasma by coagulation assay 18.2 s 12.2-14.7 INR in platelet poor plasma or blood by coagulation assay 1.5 0.8-1.4 Whole blood basic metabolic panel - 06/22/18 11:55 Serum or plasma sodium measurement (moles/volume) 134 mmol/L 135-145 Serum or plasma potassium measurement (moles/volume) 5.4 mmol/L 3.6-5.0 Serum or plasma chloride measurement (moles/volume) 100 mmol/L 98-107 Carbon dioxide 21 mmol/L 21-32 Serum or plasma anion gap determination (moles/volume) 13 mmol/L 5-14 Serum or plasma urea nitrogen measurement (mass/volume) 35 mg/dL 7-18 Serum or plasma creatinine measurement (mass/volume) 0.94 mg/dL 0.60-1.30 Serum or plasma urea nitrogen/creatinine mass ratio 37 NRG Serum or plasma creatinine measurement with calculation of estimated glomerular filtration rate 58 NRG Serum or plasma glucose measurement (mass/volume) 97 mg/dL 70-105 Serum or plasma calcium measurement (mass/volume) 10.4 mg/dL 8.5-10.1 CBC with Auto Diff - 06/29/18 19:05 Baso% 0.50 % 0.00-2.50 Eos 0.2 K/uL 0.0-0.7 Eos% 3.2 % 0.0-7.0 Hct 31.1 % 36.0-46.0 Hgb 10.3 g/dL 13.0-15.0 Lym 1.63 K/uL 0.60-3.40 Lym% 26.3 % 10.0-50.0 MCH 34.3 pg 27.0-31.0 MCHC 33.1 g/dL 32.0-36.0 MCV 103.7 fL 80.0-97.0 Maury% 9.2 % 0.0-12.0 MPV 9.0 fL 7.4-10.0 Emiliana% 60.8 % 37.0-80.0 Plt 387 K/uL 150-400 RBC 3.00 M/uL 3.60-5.00 RDW 13.3 % 11.6-14.8 WBC 6.19 K/uL 5.00-10.00 Emiliana 3.76 K/uL 2.00-6.90 Maury 0.6 K/uL 0.0-0.9 Baso 0.0 K/uL 0.0-0.2 Prealbumin - 07/26/18 07:14 Prealbumin 18.00 mg/dL 16.00-38.00 Gram stain microscopy - 08/04/18 09:15 Gram stain microscopy MODERATE GRAM POSITIVE COCCI NRG Bacteria identification in wound by culture - 08/04/18 09:15 Bacteria identification in wound by culture [id number] NRG FREE TEXT EXTERNAL SUSCEPTIBILITY REPORTED 08/07 11:30 NRG QUANTITY OF GROWTH Many NRG FREE TEXT ENTRY 2 MRSA; RESISTANT ORGANISM; NRG FREE TEXT ENTRY 3 CONTACT PRECAUTIONS NRG Dirithromycin susceptibility test by disk diffusion - 08/04/18 09:15 Oxacillin susceptibility test by minimum inhibitory concentration > NRG Clindamycin susceptibility test by minimum inhibitory concentration > NRG Erythromycin susceptibility test by minimum inhibitory concentration > NRG Trimethoprim/sulfamethoxazole susceptibility test by minimum inhibitoryconcentration <= NRG Vancomycin susceptibility test by minimum inhibitory concentration 1 NRG Levofloxacin susceptibility test by minimum inhibitory concentration > NRG Rifampin susceptibility test by minimum inhibitory concentration <= NRG Cefazolin susceptibility test by minimum inhibitory concentration > NRG Linezolid susceptibility test by minimum inhibitory concentration 2 NRG Penicillin G susceptibility test by minimum inhibitory concentration > NRG Moxifloxacin susceptibility test by minimum inhibitory concentration > NRG Minocycline susc TREVOR <= NRG Encounters ACCT No. Visit Date/Time Discharge Status Pt. Type Provider Facility Loc./Unit Complaint [id number] 07/26/2018 07:17:00 07/26/2018 23:59:00 DIS Outpatient Fernando Chin [id number] 06/29/2018 19:03:00 06/29/2018 23:59:00 DIS Outpatient Fernando Chin [id number] 06/28/2018 12:40:00 06/28/2018 13:43:00 DIS [place] [facility] [place] [id number] 08/17/2018 11:00:00 08/17/2018 23:59:59 CLS [facility] [id number] 08/25/2017 14:55:02 ACT Unknown Ruiz CARRILLO, Carlos Gamez [id number] 08/07/2018 19:05:00 08/07/2018 20:35:00 DIS Emergency PABLITO HOWARD DO [facility] [address] ER FS NOSE BLEED [id number] 08/04/2018 10:38:00 08/04/2018 23:59:59 CLS Outpatient ERENDIRA KEANE MD [facility] [address] LAB FS [id number] 06/22/2018 11:29:00 06/23/2018 14:45:00 DIS Outpatient DANISH CARRILLO, MARYANN Spicer [facility] [address] SDC NOSE BLEED [id number] 06/19/2018 22:54:00 06/20/2018 00:02:00 DIS Outpatient GABRIEL ZAVALA DO [facility] [address] ER FS FOOT ULCER [id number] 06/19/2018 11:16:00 06/19/2018 12:57:00 DIS Emergency DORIS ESPARZA DO [facility] [address] ER FS EPISTAXIS [id number] 06/11/2018 11:54:00 06/16/2018 12:45:00 DIS Inpatient ABHISHEK SAGE MD [facility] [address] 4TH LT FOOT WOUND [id number] 05/12/2018 13:33:00 05/12/2018 23:59:59 CLS Outpatient ERENDIRA KEANE MD [facility] [address] LAB FS [id number] 05/07/2018 19:21:00 05/07/2018 23:20:00 DIS Emergency RON LOPEZ MD [facility] [address] ER FS RT SIDE PAIN [id number] 03/07/2018 23:02:00 03/10/2018 13:30:00 DIS Inpatient DANIAL CARRILLO, BENJAMÍN Nayak [facility] [address] 4TH SMALL BOWEL ILEUS [id number] 03/10/2017 00:13:00 03/10/2017 23:59:59 CLS Preadmit DANNY PADILLA [facility] [address] ONC [id number] 12/09/2016 12:14:00 03/09/2017 00:01:00 DIS Outpatient DANNY PADILLA K[place] [facility] [address] ONC [id number] 01/23/2017 07:06:00 01/24/2017 09:35:00 DIS Outpatient DANISH CARRILLO, MARYANN Spicer [facility] [address] SDC NOSE BLEED [id number] 12/02/2015 10:42:00 12/02/2015 23:59:59 CLS Outpatient DANNY PADILLA [place] [facility] [address] FS [id number] 11/26/2014 11:00:00 11/26/2014 23:59:59 CLS Outpatient DANNY PADILLA [place] [facility] [address] FS [id number] 11/20/2013 10:16:00 11/20/2013 23:59:59 CLS Outpatient DANNY PADILLA [place] [facility] [address] FS [id number] 11/28/2012 12:59:00 11/28/2012 23:59:59 CLS Outpatient DANNY PADILLA [place] [facility] [address] FS [id number] 11/30/2011 13:04:00 Document Registration [id number] 11/03/2010 12:51:00 Document Registration [id number] 11/04/2009 13:41:00 Document Registration
--- OUTSIDE RECORDS SUMMARY | 2018-08-22 19:20 | XMS REPORT | Clinical Summary ---
Author Author [facility] Organization [facility] Address Unknown Phone Unavailable Care Team Providers Care Restaurant Hourly Manager Name Role Phone Parvez Rosario MD Unavailable No Pcp, Na PCP Unavailable Source Comments Some departments are not documenting in the electronic medical record. If you d o not see the information that you expected, contact Release of Information in [facility] [employer] Information Management department at [phone] for further assistan ce in locating additional records.[facility] Allergies No Known Allergies Medications End [...] No Pcp, Na Appointment Question 05/29/2018 Telephone [facility] Evangelist Rdz DO 05/26/2018 Emergency [...] 1.010 1.003 - 1.035 [facility] [place] POC Urine PH POC 5.5 5.0 - [...] City/State/Zipcode Phone Number [facility] [address] [place] [address] * US DOPPLER VENOUS W EXTRM LEFT [...] AM. Performing Organization Address City/State/Zipcode Phone Number [facility] RAD RESULTS * SED RATE (05/26/2018 4:04 PM CDT) Sed Rate -ESR 83 (H) 0 - 30 MM/HR [facility] Specimen Blood Performing Organization Address City/State/Zipcode Phone Number [facility] [address] [place] [address] * CBC AND DIFF (05/26/2018 4:04 PM [...] Basophil Count Specimen Blood Performing Organization Address [facility] Phone Number [facility] [address] [place] [address] * C REACTIVE PROTEIN (CRP) (05/26/2018 4:04 PM CDT) Pathologist [facility] C-Reactive 2.28 (H) <1.0 MG/DL [facility] Protein Specimen Blood Performing Organization Address City/[facility] Phone Number [facility] [address] [place] [address] * COMPREHENSIVE METABOLIC PANEL (05/26/2018 4:04 PM [...] (L) >60 mL/min [facility] Comment: [place] The eGFR is not validated for use in drug dosing adjustments.Continue to use estimated creatinine clearance per dosing reference text.Please contact the Clinical Pharmacist for questions. eGFR 59 (L) >60 mL/min [facility] [place] Comment: The eGFR is not validated for use in drug dosing adjustments.Continue to use estimated creatinine clearance per dosing reference text.Please contact the Clinical Pharmacist for questions. Specimen Blood Performing Organization Address City/State/Zipcode Phone Number [facility] [address] [place] [address] * ECG-SCAN (05/26/2018 12:00 AM CDT) Narrative [...] 2009- STATE Present HEALTH Advance Directives Patient Supervisor [place] Department Explanation Type Date Recorded Advance 05/26/2018 4:27 PM Directive/DPOA
--- OUTSIDE RECORDS SUMMARY | 2018-08-22 19:20 | XMS REPORT | Encounter Summary ---
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 on 05/26/2018 5:54 PM. Dictated by Janelle bellamy M.D. on 05/26/2018 5:48 PM. FOOT COMP MIN 3 VIEWS LEFT (Results Pending) EKG: Sinus rhythm, rate 70, WA 164, QRS 80, QTc 398, no STEMI. [...] Disposition Discharge Dpt [facility], Family Medicine [address] [facility] [id number] [facility] [id number] Schedule an appointment as soon as possible [...] 1.010 1.003 - 1.035 [facility] [place] POC Urine PH POC 5.5 5.0 - [...] City/State/Zipcode Phone Number [facility] [address] [place] [address] * US DOPPLER VENOUS W EXTRM LEFT [...] (L) >60 mL/min [facility] Comment: [place] The eGFR is not validated for use in drug dosing adjustments.Continue to use estimated creatinine clearance per dosing reference text.Please contact the Clinical Pharmacist for questions. eGFR 59 (L) >60 mL/min [facility] [place] Comment: The eGFR is not validated for use in drug dosing adjustments.Continue to use estimated creatinine clearance per dosing reference text.Please contact the Clinical Pharmacist for questions. Specimen Blood Performing Organization Address City/[facility]/Zipcode Phone Number [facility] [address] [place] [address] * SED RATE (05/26/2018 4:04 PM CDT) Sed Rate -ESR 83 (H) 0 - 30 MM/HR [facility] Specimen Blood Performing Organization Address City/[facility]/Zipcode Phone Number [facility] [address] [place] [address] * C REACTIVE PROTEIN (CRP) (05/26/2018 4:04 PM CDT) C-Reactive 2.28 (H) <1.0 MG/DL MAIN LAB Protein Specimen Blood Performing Organization Address City/[facility]/Zipcode Phone Number [facility] [address] [place] [address] * CBC AND DIFF (05/26/2018 4:04 PM [...] City/State/Zipcode Phone Number MAIN LAB [address] [place] [address] * ECG-SCAN (05/26/2018 12:00 AM CDT) Narrative [...]
--- OUTSIDE RECORDS SUMMARY | 2018-08-22 19:20 | XMS REPORT | Encounter Summary ---
Author Author [facility] Organization [facility] Address Unknown Phone Unavailable Care Team Providers Care Buildings Painter Name Role Phone Parvez Rosario MD Unavailable No Pcp, Na PCP Unavailable Reason for Visit * Reason Comments Appointment Question Encounter Details Care Team Description Date Type Department No Pcp, Na Appointment Question 05/29/[address] [address] Social History Date Tobacco [...] and how to care for callul itis. [facility] *Pt. has not established care with [facility] yet. * Telephone Encounter - Radha Elliott - 05/29/2018 9:52 AM CDT Jazzy wallace pt. was seen in the ED on Tuesday and they informed her to schedule an appointment with [facility]. pt. has a provider in [place] and was wonder ing if that is okay to do instead. M [id number] documented in this encounter Plan of Treatment Not on filedocumented as of this encounter Visit Diagnoses Not on filedocumented in this encounter
--- OUTSIDE RECORDS SUMMARY | 2018-08-22 19:25 | XMS REPORT | Continuity of Care Document ---
Author Organization Unknown Address Unknown Allergies Active Description Code Type Severity Reaction Onset Reported/Identified Relationship to Patient Clinical Status Yes NO KNOWN DRUG ALLERGIES UNKNOWN UNKNOWN Yes No Known Drug Allergies [id number] Drug Allergy Unknown N/A 06/11/2018 Medications There [...] 12/02/2015 DANNY PADILLA N Ot Z79.899 OTHER RESIDENTIAL (CURRENT) DRUG THERAPY 12/02/2015 DANNY PADILLA N [...] 12/08/2015 DANNY PADILLA N Ot Z79.899 OTHER MOTORCYCLE SERVICE TECHNICIAN (CURRENT) DRUG THERAPY 12/08/2015 DANNY PADILLA N [...] 12/23/2015 DANNY PADILLA N Ot Z79.899 OTHER MOTORCYCLE SERVICE TECHNICIAN (CURRENT) DRUG THERAPY 12/23/2015 DANNY PADILLA N [...] 12/31/2015 DANNY PADILLA N Ot Z79.899 OTHER MOTORCYCLE SERVICE TECHNICIAN (CURRENT) DRUG THERAPY 12/31/2015 RANDYDANNY SHUKLA N [...] 12/10/2016 DANNY PADILLA Kodi Ot Z79.899 OTHER MOTORCYCLE SERVICE TECHNICIAN (CURRENT) DRUG THERAPY 12/10/2016 DANNY PADILLA Kodi [...] 01/23/2017 DANNY PADILLA N Ot Z79.899 OTHER MOTORCYCLE SERVICE TECHNICIAN (CURRENT) DRUG THERAPY 01/23/2017 DANNY PDAILLA N Ot Z85.3 PERSONAL HISTORY OF MALIGNANT NEOPLASM O 01/23/2017 DANNY PADILLA N Ot Z92.3 PERSONAL HISTORY OF IRRADIATION 01/23/2017 DANNY PADILLA Ot E08.40 DIABETES DUE TO UNDERLYING CONDITION W D 01/23/2017 DANNY PADILLA Ot G62.9 POLYNEUROPATHY, UNSPECIFIED 01/23/2017 DANNY PADILLA N Ot Z08 ENCNTR FOR FOLLOW-UP EXAM AFTER TRTMT FO 01/23/2017 DANNY PADILLA Ot Z79.899 OTHER RESIDENTIAL (CURRENT) DRUG THERAPY 01/23/2017 DANNY PADILLA N [...] 01/23/2017 DANNY PADILLA N Ot Z79.899 OTHER RESIDENTIAL (CURRENT) DRUG THERAPY 01/23/2017 DANNY PADILLA N [...] EPISTAXIS 01/24/2017 MARYANN PENG MD Ot Z79.82 MOTORCYCLE SERVICE TECHNICIAN (CURRENT) USE OF ASPIRIN 01/26/2017 MARYANN PENG [...] EPISTAXIS 01/26/2017 MARYANN PENG MD Ot Z79.82 MOTORCYCLE SERVICE TECHNICIAN (CURRENT) USE OF ASPIRIN 02/02/2017 DANNY PADILLA Ot E08.40 DIABETES DUE TO UNDERLYING CONDITION W D 02/02/2017 DANNY PADILLA Ot G62.9 POLYNEUROPATHY, UNSPECIFIED 02/02/2017 DANNY PADILLA Ot Z08 ENCNTR FOR FOLLOW-UP EXAM AFTER TRTMT FO 02/02/2017 DANNY PADILLA Ot Z79.899 OTHER MOTORCYCLE SERVICE TECHNICIAN (CURRENT) DRUG THERAPY 02/02/2017 DANNY PADILLA Ot [...] 02/04/2017 DANNY PADILLA N Ot Z79.899 OTHER MOTORCYCLE SERVICE TECHNICIAN (CURRENT) DRUG THERAPY 02/04/2017 RANDY REGINALDOKALLI N [...] 03/09/2017 RANDY REGINALDOKALLI N Ot Z79.899 OTHER MOTORCYCLE SERVICE TECHNICIAN (CURRENT) DRUG THERAPY 03/09/2017 RANDY REGINALDOKALLI N [...] 03/10/2017 RANDY DANNY N Ot Z79.899 OTHER MOTORCYCLE SERVICE TECHNICIAN (CURRENT) DRUG THERAPY 03/10/2017 RANDY DANNY N [...] 03/07/2018 RANDY DANNY N Ot Z79.899 OTHER RESIDENTIAL (CURRENT) DRUG THERAPY 03/07/2018 RANDY DANNY N [...] 03/07/2018 RANDY DANNY N Ot Z79.899 OTHER MOTORCYCLE SERVICE TECHNICIAN (CURRENT) DRUG THERAPY 03/07/2018 RANDY DANNY N [...] 03/07/2018 DANNY PADILLA Kodi Ot Z79.899 OTHER MOTORCYCLE SERVICE TECHNICIAN (CURRENT) DRUG THERAPY 03/07/2018 RANDY DANNY N Ot Z85.3 PERSONAL HISTORY OF MALIGNANT NEOPLASM O 03/07/2018 RANDY DANNY Mariee Ot Z92.3 PERSONAL HISTORY OF IRRADIATION 03/08/2018 DANNY PADILLA Kodi Ot 356.9 IDIO PERIPH NEURPTHY NOS 03/08/2018 RANDY DANNY N Ot 715.89 OSTEOARTHROSIS-MULT SITE 03/08/2018 RANDY REGINALDOKALIL Kodi Ot V10.3 HX OF BREAST MALIGNANCY [...] 03/08/2018 RANDY DANNY Mariee Ot Z79.899 OTHER MOTORCYCLE SERVICE TECHNICIAN (CURRENT) DRUG THERAPY 03/08/2018 RANDY BOBAN N Ot Z85.3 PERSONAL HISTORY OF MALIGNANT NEOPLASM O 03/08/2018 DANNY PADILLA Ot Z92.3 PERSONAL HISTORY OF IRRADIATION 03/08/2018 DANNY PADILLA Ot E08.40 DIABETES DUE TO UNDERLYING CONDITION W D 03/08/2018 DANNY PADILLA Ot G62.9 POLYNEUROPATHY, UNSPECIFIED 03/08/2018 DANNY PADILLA Ot Z08 ENCNTR FOR FOLLOW-UP EXAM AFTER TRTMT FO 03/08/2018 DANNY PADILLA Ot Z79.899 OTHER RESIDENTIAL (CURRENT) DRUG THERAPY 03/08/2018 DANNY PADILLA Ot Z85.3 PERSONAL HISTORY OF MALIGNANT NEOPLASM O 03/08/2018 DANNY PADILLA Ot Z92.3 PERSONAL HISTORY OF IRRADIATION 03/08/2018 DANNY PADILLA Ot E08.40 DIABETES DUE TO UNDERLYING CONDITION W D 03/08/2018 DANNY PADILLA Ot G62.9 POLYNEUROPATHY, UNSPECIFIED 03/08/2018 DANNY PADILLA Ot Z08 ENCNTR FOR FOLLOW-UP EXAM AFTER TRTMT FO 03/08/2018 DANNY PADILLA Ot Z79.899 OTHER RESIDENTIAL (CURRENT) DRUG THERAPY 03/08/2018 DANNY PADILLA Ot [...] LOPEZ MD, Ot K59.00 CONSTIPATION, UNSPECIFIED 05/07/2018 RNO LOPEZ MD, Ot N39.0 URINARY TRACT INFECTION, SITE NOT SPECIF 05/07/2018 RON LOPEZ MD, Ot N63.10 UNSPECIFIED LUMP IN THE RIGHT BREAST, UN 05/07/2018 RON LOPEZ MD, Ot R10.31 RIGHT LOWER QUADRANT PAIN 05/07/2018 RON LOPEZ MD, Ot Z79.4 RESIDENTIAL (CURRENT) USE OF INSULIN 05/07/2018 RON LOPEZ MD Ot Z79.51 RESIDENTIAL (CURRENT) USE OF INHALED STERO 05/07/2018 RON LOPEZ MD, Ot Z79.82 MOTORCYCLE SERVICE TECHNICIAN (CURRENT) USE OF ASPIRIN 05/07/2018 RON LOPEZ [...] Ot F41.9 ANXIETY DISORDER, UNSPECIFIED 05/11/2018 RON OLPEZ MD, Ot G25.81 RESTLESS LEGS SYNDROME 05/11/2018 [...] PAIN 05/11/2018 RON LOPEZ MD, Ot Z79.4 MOTORCYCLE SERVICE TECHNICIAN (CURRENT) USE OF INSULIN 05/11/2018 RON LOPEZ MD, Ot Z79.51 RESIDENTIAL (CURRENT) USE OF INHALED STERO 05/11/2018 RON LOPEZ MD, Ot Z79.82 MOTORCYCLE SERVICE TECHNICIAN (CURRENT) USE OF ASPIRIN 05/11/2018 RON LOPEZ [...] FO 06/11/2018 DANNY PADILLA Ot Z79.899 OTHER RESIDENTIAL (CURRENT) DRUG THERAPY 06/11/2018 DANNY PADILLA Ot [...] EPISTAXIS 06/19/2018 DORIS ESPARZA DO, Ot Z79.01 RESIDENTIAL (CURRENT) USE OF ANTICOAGULANT 06/19/2018 DORIS ESPARZA DO, Ot Z79.4 MOTORCYCLE SERVICE TECHNICIAN (CURRENT) USE OF INSULIN 06/19/2018 DORIS ESPARZA DO, Ot Z79.51 MOTORCYCLE SERVICE TECHNICIAN (CURRENT) USE OF INHALED STERO 06/19/2018 DORIS ESPARZA DO, Ot Z79.82 MOTORCYCLE SERVICE TECHNICIAN (CURRENT) USE OF ASPIRIN 06/19/2018 DORIS ESPARZA [...] 2 DIABETES MELLITUS WITH DIABETIC N 06/20/2018 [facility], GABRIEL Ot E11.621 TYPE 2 DIABETES MELLITUS WITH FOOT ULCER 06/20/2018 ZAVALA , GABRIEL Ot E78.00 PURE HYPERCHOLESTEROLEMIA, UNSPECIFIED 06/20/2018 [facility], GBARIEL Ot F41.9 ANXIETY DISORDER, UNSPECIFIED 06/20/2018 [facility], GABRIEL Ot G47.30 SLEEP APNEA, UNSPECIFIED 06/20/2018 [facility], [place]ABRIEL Ot 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 06/20/2018 ZAVALA , GABRIEL Ot I10 ESSENTIAL (PRIMARY) HYPERTENSION 06/20/2018 [facility], GABRIEL Ot 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.] EPISTAXIS 06/21/2018 DORIS ESPARZA DO, Ot Z79.01 MOTORCYCLE SERVICE TECHNICIAN (CURRENT) USE OF ANTICOAGULANT 06/21/2018 DORIS ESPARZA DO, Ot Z79.4 RESIDENTIAL (CURRENT) USE OF INSULIN 06/21/2018 DORIS ESPARZA DO, Ot Z79.51 MOTORCYCLE SERVICE TECHNICIAN (CURRENT) USE OF INHALED STERO 06/21/2018 DORIS ESPARZA DO, Ot Z79.82 MOTORCYCLE SERVICE TECHNICIAN (CURRENT) USE OF ASPIRIN 06/21/2018 DORIS ESPARZA [...] LEFT 06/22/2018 GABRIEL ZAVALA DO, Ot Z79.01 RESIDENTIAL (CURRENT) USE OF ANTICOAGULANT 06/22/2018 GABRIEL ZAVALA DO, Ot Z79.4 MOTORCYCLE SERVICE TECHNICIAN (CURRENT) USE OF INSULIN 06/22/2018 SALLY SLOAN, GABRIEL Ot Z79.82 MOTORCYCLE SERVICE TECHNICIAN (CURRENT) USE OF ASPIRIN 06/22/2018 ZAVALA , [...] EPISTAXIS 06/23/2018 MARYANN PENG MD Ot Z79.01 RESIDENTIAL (CURRENT) USE OF ANTICOAGULANT 06/23/2018 MARYANN PENG MD Ot Z79.82 RESIDENTIAL (CURRENT) USE OF ASPIRIN 06/23/2018 MARYANN PENG MD Ot Z79.899 OTHER MOTORCYCLE SERVICE TECHNICIAN (CURRENT) DRUG THERAPY 06/23/2018 MARYANN PENG MD [...] EPISTAXIS 06/28/2018 MARYANN PENG MD Ot Z79.01 RESIDENTIAL (CURRENT) USE OF ANTICOAGULANT 06/28/2018 MARYANN PENG MD Ot Z79.82 MOTORCYCLE SERVICE TECHNICIAN (CURRENT) USE OF ASPIRIN 06/28/2018 DANISH CARRILLO, MARYANN Spicer Ot Z79.899 OTHER MOTORCYCLE SERVICE TECHNICIAN (CURRENT) DRUG THERAPY 06/28/2018 DANISH CARRILLO, MARYANN Spicer Ot Z86.711 PERSONAL HISTORY OF PULMONARY EMBOLISM 07/06/2018 [facility], GABRIEL Ot E11.40 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 07/06/2018 [facility], GABRIEL Ot E11.621 TYPE 2 DIABETES MELLITUS WITH FOOT ULCER 07/06/2018 [facility], GABRIEL Ot E78.00 PURE HYPERCHOLESTEROLEMIA, UNSPECIFIED 07/06/2018 [facility], GABRIEL Ot F41.9 ANXIETY DISORDER, UNSPECIFIED 07/06/2018 [facility], GABRIEL Ot G47.30 SLEEP APNEA, UNSPECIFIED 07/06/2018 [facility], GABRIEL Ot 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 07/06/2018 [facility], GABRIEL Ot I10 ESSENTIAL (PRIMARY) HYPERTENSION 07/06/2018 [facility], GABRIEL Ot 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 07/06/2018 [facility], GABRIEL Ot Z79.01 MOTORCYCLE SERVICE TECHNICIAN (CURRENT) USE OF ANTICOAGULANT 07/06/2018 [facility], GABRIEL Ot Z79.4 MOTORCYCLE SERVICE TECHNICIAN (CURRENT) USE OF INSULIN 07/06/2018 [facility], GABRIEL Ot Z79.82 RESIDENTIAL (CURRENT) USE OF ASPIRIN 07/06/2018 [facility], GABRIEL Ot Z82.49 FAMILY HX OF ISCHEM HEART DIS AND OTH DI 07/06/2018 [facility], GABRIEL Ot Z85.3 PERSONAL HISTORY OF MALIGNANT NEOPLASM O 07/06/2018 [facility], GABRIEL Ot Z87.19 PERSONAL HISTORY OF OTHER [...] EPISTAXIS 08/07/2018 PABLITO HOWARD DO, Ot Z79.01 MOTORCYCLE SERVICE TECHNICIAN (CURRENT) USE OF ANTICOAGULANT 08/07/2018 PABLITO HOWARD DO, Ot Z79.82 MOTORCYCLE SERVICE TECHNICIAN (CURRENT) USE OF ASPIRIN 08/07/2018 PABLITO HOWARD DO, Ot Z79.84 MOTORCYCLE SERVICE TECHNICIAN (CURRENT) USE OF ORAL HYPOGLYC 08/07/2018 PABLITO [...] EPISTAXIS 08/09/2018 PABLITO HOWARD DO, Ot Z79.01 MOTORCYCLE SERVICE TECHNICIAN (CURRENT) USE OF ANTICOAGULANT 08/09/2018 PABLITO HOWARD DO, Ot Z79.82 MOTORCYCLE SERVICE TECHNICIAN (CURRENT) USE OF ASPIRIN 08/09/2018 PABLITO HOWARD DO, Ot Z79.84 MOTORCYCLE SERVICE TECHNICIAN (CURRENT) USE OF ORAL HYPOGLYC 08/09/2018 PABLITO HOWARD DO, Ot Z82.49 FAMILY HX OF ISCHEM HEART DIS AND OTH DI 08/09/2018 PABLITO HOWARD DO, Ot Z85.3 PERSONAL HISTORY OF MALIGNANT NEOPLASM O 08/09/2018 PABLITO HOWARD DO, Ot Z86.711 PERSONAL HISTORY OF PULMONARY EMBOLISM Procedures Code Description Performed By Performed On 3IME6RS EXCISION OF L FOOT SUBCU/FASCIA, OPEN AP [...] culture - 05/07/18 20:21 Bacterial urine culture [id number] NRG COLONY COUNT >100,000/ML NRG FTX;REPORTABLE SENSITIVITY [...] 33.1 g/dL 32.0-36.0 MCV 103.7 fL 80.0-97.0 [place]% 9.2 % 0.0-12.0 MPV 9.0 fL 7.4-10.0 [place]% 60.8 % 37.0-80.0 Plt 387 K/uL 150-400 RBC 3.00 M/uL 3.60-5.00 RDW 13.3 % 11.6-14.8 WBC 6.19 K/uL 5.00-10.00 Emiliana 3.76 K/uL 2.00-6.90 [place] 0.6 K/uL 0.0-0.9 Baso 0.0 K/uL 0.0-0.2 Prealbumin - 07/26/18 07:14 Prealbumin 18.00 mg/dL 16.00-38.00 Gram stain microscopy - 08/04/18 09:15 Gram stain microscopy MODERATE GRAM POSITIVE COCCI NRG Bacteria identification in wound by culture - 08/04/18 09:15 Bacteria identification in wound by culture [id number] NRG FREE TEXT EXTERNAL SUSCEPTIBILITY REPORTED 08/07 [...] Status Pt. Type Provider Facility Loc./Unit Complaint [id number] 07/26/2018 07:17:00 07/26/2018 23:59:00 DIS Outpatient Fernando Chin [id number] 06/29/2018 19:03:00 06/29/2018 23:59:00 DIS Outpatient Fernando Chin [id number] 06/28/2018 12:40:00 06/28/2018 13:43:00 DIS [place] [facility] [place] [id number] 08/17/2018 11:00:00 08/17/2018 23:59:59 CLS Outpatient [facility]ENDIRA [facility] [id number] 08/25/2017 14:55:02 ACT Unknown Ruiz CARRILLO, Carlos Gamez [id number] 08/07/2018 19:05:00 08/07/2018 20:35:00 DIS Emergency PABLITO HOWARD DO [facility] ER FS NOSE BLEED [id number] 08/04/2018 10:38:00 08/04/2018 23:59:59 CLS Outpatient ERENDIRA KEANE MD [facility] LAB FS [id number] [id number] 06/22/2018 11:29:00 06/23/2018 14:45:00 DIS Outpatient DANISH CARRILLO, MARYANN Spicer [facility] SDC NOSE BLEED [id number] 06/19/2018 22:54:00 06/20/2018 00:02:00 DIS Outpatient GABRIEL ZAVALA DO [facility] ER FS FOOT ULCER [id number] 06/19/2018 11:16:00 06/19/2018 12:57:00 DIS Emergency DORIS ESPARZA DO [facility] ER FS EPISTAXIS [id number] 06/11/2018 11:54:00 06/16/2018 12:45:00 DIS Inpatient ABHISHEK SAGE MD [facility] 4TH LT FOOT WOUND [id number] 05/12/2018 13:33:00 05/12/2018 23:59:59 CLS Outpatient ERENDIRA KEANE MD [facility] LAB FS E875 [id number] 05/07/2018 19:21:00 05/07/2018 23:20:00 DIS Emergency RON LOPEZ MD [facility] ER FS RT SIDE PAIN [id number] 03/07/2018 23:02:00 03/10/2018 13:30:00 DIS Inpatient DANIAL CARRILLO, BENJAMÍN Nayak [facility] 4TH SMALL BOWEL ILEUS [id number] 03/10/2017 00:13:00 03/10/2017 23:59:59 CLS Preadmit DANNY PADILLA [facility] ONC [id number] 12/09/2016 12:14:00 03/09/2017 00:01:00 DIS Outpatient DANNY PADILLA Kodi [facility] ONC [id number] 01/23/2017 07:06:00 01/24/2017 09:35:00 DIS Outpatient DANISH CARRILLO, MARYANN Spicer [facility] SDC NOSE BLEED [id number] 12/02/2015 10:42:00 12/02/2015 23:59:59 CLS Outpatient DANNY PADILLA K[place] [facility] FS [id number] 11/26/2014 11:00:00 11/26/2014 23:59:59 CLS Outpatient DANNY PADILLA [place] [facility] FS [id number] 11/20/2013 10:16:00 11/20/2013 23:59:59 CLS Outpatient DANNY PADILLA [place] [facility] FS [id number] 11/28/2012 12:59:00 11/28/2012 23:59:59 CLS Outpatient DANNY PADILLA [place] [facility] FS [id number] 11/30/2011 13:04:00 Document Registration [id number] 11/03/2010 12:51:00 Document Registration [id number] 11/04/2009 13:41:00 Document Registration
[2018-08-22] MEDS ORDERED: PROMETHAZINE INJ 25 MG/ML (PHENERGAN) AMP IM PRN (20:30)
[2018-08-22] MEDS ORDERED: ENOXAPARIN 100 MG/1 ML (LOVENOX) SYR SC SCH (20:30)
[2018-08-22] MEDS ORDERED: PROMETHAZINE 25 MG (PHENERGAN) SUPP PR PRN (20:30)
[2018-08-22] MEDS ORDERED: ONDANSETRON 4 MG/2 ML (SDV) Z0FRAN IVP PRN (20:30)
[2018-08-22] MEDS ORDERED: ACETAMINOPHEN 650 MG SUPP (TYLENOL) PR PRN (20:30)
--- NOTE | 2018-08-22 21:13 | Diagnostic Imaging Report ---
INDICATION: NG tube placement EXAMINATION: Chest 08/22/2018 COMPARISON: 08/22/2018 at 4:10 PM FINDINGS: There is a feeding tube with the tip coursing beneath the diaphragm. Heart is stable. Pulmonary vasculature is unchanged. Lungs stable from previous as well. IMPRESSION: 1. Feeding tube tip courses beneath the diaphragm, tip not visualized. Dictated by: Dictated on workstation # [id number]
[2018-08-22] MEDS: POTASSIUM CHLORIDE INJ 10 MEQ in NS IV 1000 ML 1,000 ML IV SCH (22:01)
[2018-08-22] MEDS: fentaNYL INJECTION 100 MCG/2 ML AMP IVP PRN (22:01)
[2018-08-22] MEDS: ENOXAPARIN 80 MG/0.8 ML (LOVENOX) SYR SC SCH (22:05)
[2018-08-22 22:19] VITALS: BP 141/63
--- NOTE | 2018-08-22 22:20 | Consultation - Surgery ---
History of Present Illness History of Present Illness Patient Consulted On(danisha/time) 08/22/18 22:15 Date Seen by Provider: Aug 22, 2018 Time Seen by Provider: 22:15 History of Present Illness consult requested by Dr. Hernandez for psbo patient is a 77 year old female who is poor historian. No family at bedside. patient has been ill for about 4-5 days. Has had nausea and emesis on and off. Not really passing flatus but has had 2 small bowel movements she thinks. She is mild abdominal pain that she states is all over. She states he abdomen is distended. Nothing makes better and nothing makes worse. She states she has had multiple abdominal surgeries. She notes an incisional hernia that causes slight discomfort from time to time. She had a ct scan that I reviewed that demonstrated dilated stomach and small bowel consistent with small bowel obstruction. Patient has had an ng tube place. Allergies and Home Medications Allergies Coded Allergies: No Known Drug Allergies (Unverified , 06/11/18) Home Medications Allopurinol 100 Mg Tablet, 100 MG PO DAILY, (Reported) Alprazolam 0.5 Mg Tablet, 0.5 MG PO BID, (Reported) Amoxicillin 875 Mg Tablet, 875 MG PO BID Prescribed by: DORIS ESPARZA on 06/19/18 1240 Apixaban 5 Mg Tablet, 10 MG PO BID TAKE 2 TABLETS TWICE DAILY X 7 DAYS THEN TAKE 1 TABLET TWICE DAILY Prescribed by: BRIANNA HERNANDEZ on 06/16/18 1134 Aspirin 81 Mg Tablet.dr, 81 MG PO HS, (Reported) Calcium Carbonate 600 Mg Tablet, 600 MG PO DAILY, (Reported) Cephalexin 500 Mg Capsule, 500 MG PO BID Prescribed by: PABLITO HOWARD on 08/07/182013 Gabapentin 600 Mg Tablet, 600 MG PO QID, (Reported) Gemfibrozil 600 Mg Tablet, 600 MG PO BID, (Reported) Glipizide 5 Mg Tablet, 5 MG PO BID, (Reported) Mirabegron 25 Mg Tab.er.24h, 25 MG PO DAILY, (Reported) Montelukast Sodium 10 Mg Tablet, 10 MG PO HS, (Reported) Multivitamin 1 Each Tablet, 1 TAB PO DAILY, (Reported) Omeprazole 20 Mg Capsule.dr, 20 MG PO DAILY, (Reported) Primidone 50 Mg Tablet, 100 MG PO BID, (Reported) TAKES 2 (50MG) TABLETS Sertraline HCl 50 Mg Tablet, 50 MG PO DAILY, (Reported) Tramadol HCl 50 Mg Tablet, 50 MG PO Q6H PRN for PAIN-MODERATE Prescribed by: BRIANNA HERNANDEZ on 06/16/18 1031 Valsartan 160 Mg Tablet, 80 MG PO DAILY, (Reported) TAKES 1/2 (160MG) TABLET Patient Home Medication List Home Medication List Reviewed: Yes Past Sxhpbwu-Ksjtms-Znbfsc Hx Patient Social History Alcohol Use: Denies Use Recreational Drug Use: No Smoking Status: Never a Smoker Type Used: Cigarettes 2nd Hand Smoke Exposure: No Recent Foreign Travel: No Contact w/Someone Who Travel: No Recent Infectious Disease Expo: No Recent Hopitalizations: No Seasonal Allergies Seasonal Allergies: No Surgeries History of Surgeries: Yes (CATARACTS) Surgeries: Abdominal, Bowel Surgery, Breast, Gallbladder Respiratory History of Respiratory Disorde: Yes Respiratory Disorders: Pulmonary Embolism, Sleep Apnea Cardiovascular History of Cardiac Disorders: Yes Cardiac Disorders: High Cholesterol, Hypertension 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) Neurological Disorders: Neuropathy Reproductive System Sexually Transmitted Disease: Yes (GONORRHEA) 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 Genitourinary History of Genitourinary Disor: Yes (INCONTINENCE) Gastrointestinal History of Gastrointestinal Di: Yes Gastrointestinal Disorders: Gastrointestinal Bleed Musculoskeletal History of Musculoskeletal Dis: Yes (RESTLESS LEGS; GAIT DISTURBANCE) Musculoskeletal Disorders: Arthritis Endocrine History of Endocrine Disorders: Yes Endocrine Disorders: Diabetes, Non-Insulin dep HEENT History of HEENT Disorders: Yes (NOSEBLEEDS; PERTUSSIS; ) HEENT Disorders: Cataract Loss of Vision: Bilateral Hearing Impairment: Hard of Hearing, Bilateral Hearing Aide Cancer History of Cancer: Yes Cancer: Breast Psychosocial History of Psychiatric Problem: Yes Behavioral Health Disorders: Anxiety Integumentary History of Skin or Integumenta: Yes (CHICKEN POX, ULCER OF LEFT ANKLE) Blood Transfusions History of Blood Disorders: No Family Medical History Significant Family History: Heart Disease, Diabetes, Hypertension, Other Conditions/Hx Review of Systems-General Constitutional: no symptoms reported EENTM: no symptoms reported Respiratory: no symptoms reported Cardiovascular: no symptoms reported Gastrointestinal: see HPI Genitourinary: no symptoms reported Musculoskeletal: no symptoms reported Skin: no symptoms reported Psychiatric/Neurological: No Symptoms Reported Physical Exam-General Problems Physical Exam Vital Signs Vital Signs - First Documented 08/22/18 15:52 Temp 99.3 Pulse 104 Resp 16 B/P (MAP) 119/59 (79) Pulse Ox 94 O2 Delivery Room Air Capillary Refill : Less Than 3 Seconds General Appearance: no apparent distress HEENT: PERRL/EOMI, normal ENT inspection (ng tube) Neck: non-tender, supple, normal inspection Respiratory: chest non-tender, no respiratory distress, no accessory muscle use Cardiovascular: regular rate, rhythm Gastrointestinal: distended, tenderness (min diffusely), hernia (incisional below umbilicus) Rectal: deferred Back: no CVA tenderness Extremities: non-tender, normal inspection 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/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: 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, no motor/sensory deficits, alert, normal mood/affect Skin: normal color, warm/dry Lymphatic: no adenopathy Data Review Labs Laboratory Tests 08/22/18 16:08: White Blood Count 10.9, Red Blood Count 3.99L, Hemoglobin 12.5, Hematocrit 38, Mean Corpuscular Volume 95, Mean Corpuscular Hemoglobin 31, Mean Corpuscular Hemoglobin Concent 33, Red Cell Distribution Width 13.3, Platelet Count 292, Mean Platelet Volume 9.0, Neutrophils (%) (Auto) 81H, Lymphocytes (%) (Auto) 10L , Monocytes (%) (Auto) 8, Eosinophils (%) (Auto) 0, Basophils (%) (Auto) 0, Neutrophils # (Auto) 8.8H, Lymphocytes # (Auto) 1.0, Monocytes # (Auto) 0.9, Eosinophils # (Auto) 0.0, Basophils # (Auto) 0.0, Sodium Level 135, Potassium Level 5.0, Chloride Level 91L, Carbon Dioxide Level 26, Anion Gap 18H, Blood Urea Nitrogen 32H, Creatinine 0.91, Estimat Glomerular Filtration Rate 60, BUN/Creatinine Ratio 35, Glucose Level 209H, Calcium Level 10.0, Corrected Calcium 9.6, Total Bilirubin 0.3, Aspartate Amino Transf (AST/SGOT) 25, Alanine Aminotransferase (ALT/SGPT) 21, Alkaline Phosphatase 93, Total Protein 7.9, Albumin 4.5 Assessment/Plan Assessment/Plan Assessment/Plan partial small bowel obstruction incisional hernia npo iv hydration ng tube small bowel follow through tomorrow hernia reducible RONALDO CHONG DO Aug 22, 2018 22:20
[2018-08-23 00:07] VITALS: BP 114/59
[2018-08-23 03:56] VITALS: BP 117/58
[2018-08-23 05:44] LABS: BASOPHILS % (AUTO) 0 % (0-10); EOSINOPHILS # (AUTO) 0.1 10^3/uL (0.0-0.3); EOSINOPHILS % (AUTO) 2 % (0-10); HEMATOCRIT 34 % (35-52); HEMOGLOBIN 10.7 G/DL (11.5-16.0); LYMPHOCYTES # (AUTO) 1.1 X 10^3 (1.0-4.0); LYMPHOCYTES % (AUTO) 15 % (12-44); MEAN CORPUSCULAR HEMOGLOBIN 31 PG (25-34); MEAN CORPUSCULAR HGB CONC 32 G/DL (32-36); MEAN CORPUSCULAR VOLUME 98 FL (80-99); MEAN PLATELET VOLUME 9.6 FL (7.4-10.4); MONOCYTES # (AUTO) 0.8 X 10^3 (0.0-1.0); MONOCYTES % (AUTO) 12 % (0-12); NEUTROPHILS # (AUTO) 5.2 X 10^3 (1.8-7.8); NEUTROPHILS % (AUTO) 71 % (42-75); PLATELET COUNT 205 10^3/uL (130-400); RED CELL DISTRIBUTION WIDTH 13.7 % (10.0-14.5); WHITE BLOOD COUNT 7.3 10^3/uL (4.3-11.0)
[2018-08-23 06:09] LABS: ALANINE AMINOTRANSFERASE 17 U/L (0-55); ALBUMIN 3.5 GM/DL (3.2-4.5); ALKALINE PHOSPHATASE 70 U/L (40-136); BILIRUBIN,TOTAL 0.3 MG/DL (0.1-1.0); BUN/CREATININE RATIO 36; CALCIUM 9.1 MG/DL (8.5-10.1); CARBON DIOXIDE 22 MMOL/L (21-32); CHLORIDE 105 MMOL/L (98-107); CREATININE SERUM 0.84 MG/DL (0.60-1.30); GFR ESTIMATED > 60; GLUCOSE 103 MG/DL (70-105); POTASSIUM 5.2 MMOL/L (3.6-5.0); SODIUM 137 MMOL/L (135-145); TOTAL PROTEIN 6.1 GM/DL (6.4-8.2)
[2018-08-23] MEDS: POTASSIUM CHLORIDE INJ 10 MEQ in NS IV 1000 ML 1,000 ML IV SCH ×3 (06:45→19:58)
[2018-08-23 08:00] VITALS: BP 123/70
[2018-08-23] MEDS: ENOXAPARIN 80 MG/0.8 ML (LOVENOX) SYR SC SCH ×2 (09:33→19:58)
--- NOTE | 2018-08-23 10:35 | History & Physical-Hospitalist ---
History of Present Illness HPI/Chief Complaint CC: Small bowel obstruction HPI: This is a 77yo mentally challenged white female known to me from June admission due to DVT/PE and required oxygen supplementation following an immobilized states after left foot ulceration was managed by Dr. Hutchins s/p excision showing a verruca that had been maintained on oral anticoagulation that presented to the ER with abdominal pain found to have CT findings consistent with small bowel obstruction. She had an NG tube placed, IV fluids, and supportive care. Has been maintained through the night and Dr. Dash has been consulted. She will be going down for a small bowel follow through and oxygen saturation is maintained at 92%. Difficult hx obtained due to mentally challenged state. She reports abdominal pain and nausea currently. Source: patient Exam Limitations: clinical condition Date Seen 08/23/18 Time Seen by a Provider: 09:30 Attending Physician Gayle Jackson Katrina M MD Referring Physician Date of Admission Aug 22, 2018 at 18:10 Home Medications & Allergies Home Medications Reviewed patient Home Medication Reconciliation performed by pharmacy medication reconciliations machine shop repair technician and/or nursing. Patients Allergies have been reviewed. Allergies Allergies Coded Allergies No Known Drug Allergies (Unverified06/11/18) Past [id number]-Xpddvc Hx Past Med/Social Hx: Reviewed Nursing Past Med/Soc Hx, Reviewed and Corrections made Patient Social History Marrital Status: single Employed/Student: unemployed Alcohol Use: Denies Use Recreational Drug Use: No Smoking Status: Never a Smoker Type Used: Cigarettes 2nd Hand Smoke Exposure: No Recent Foreign Travel: No Contact w/other who traveled: No Recent Hopitalizations: No Recent Infectious Disease Expo: No Seasonal Allergies Seasonal Allergies: No Past Medical History Surgeries: Abdominal, Bowel Surgery, Breast, Gallbladder Cardiac: High Cholesterol, Hypertension Neurological: Neuropathy Sexually Transmitted Disease: Yes (GONORRHEA) Menopausal Gastrointestinal: Gastrointestinal Bleed Musculoskeletal: Arthritis Endocrine: Diabetes, Non-Insulin dep HEENT: Cataract Loss of Vision: Bilateral Hearing Impairment: Hard of Hearing, Bilateral Hearing Aide Cancer: Breast Did You Recieve Any Treatments: Yes What Type of Treatment Did You: Chemotherapy, Radiation, Surgical Intervention Psychosocial: Anxiety History of Blood Disorders: No Family History Heart Disease, Diabetes, Hypertension, Other Conditions/Hx Review of Systems Constitutional: see HPI, weakness EENTM: no symptoms reported Respiratory: no symptoms reported Cardiovascular: no symptoms reported Gastrointestinal: abdominal pain, nausea, vomiting Musculoskeletal: no symptoms reported Skin: no symptoms reported Psychiatric/Neurological: No Symptoms Reported All Other Systems Reviewed Negative Unless Noted: Yes Physical Exam Physical Exam Vital Signs Vital Signs - First Documented 08/22/18 15:52 Temp 99.3 Pulse 104 Resp 16 B/P (MAP) 119/59 (79) Pulse Ox 94 O2 Delivery Room Air Capillary Refill : Less Than 3 SecondsLess Than 3 Seconds Height, Weight, BMI Height: 4'11.00" Weight: 158lbs. 12.8oz. 72.904483mo; 32.1 BMI Method:Stated General Appearance: WD/WN, Anxious, Chronically ill, Mild Distress Eyes: Right Eye Normal Inspection, Right Eye PERRL HEENT: PERRL/EOMI, Normal ENT Inspection, Pharynx Normal, Moist Mucous Membranes Neck: Full Range of Motion, Normal Inspection, Non Tender Respiratory: Chest Non Tender, Lungs Clear, Normal Breath Sounds, No Accessory Muscle Use, No Respiratory Distress Cardiovascular: Regular Rate, Rhythm, No Edema, No Gallop, No JVD, No Murmur, Normal Peripheral Pulses Gastrointestinal: No Organomegaly, No Pulsatile Mass, Soft, Abnormal Bowel Elizabeth nds, Distended, Guarding Back: Normal Inspection, No CVA Tenderness, No Vertebral Tenderness Extremity: Normal Capillary Refill, Normal Inspection, Normal Range of Motion, Non Tender, No Calf Tenderness, No Pedal Edema Neurologic/Psychiatric: Alert, No Motor/Sensory Deficits, Normal Mood/Affect, 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 Assessment/Plan Admission Diagnosis Assessment: Partial SBO acute versus ileus awaiting small bowel follow through results consulting Dr Dash h/o Pulmonary embolism Non-insulin dependent type 2 diabetes mellitus Breast cancer in female Mentally challenged O2 dependent Plan: Appreciate Dr Dash NPO Lovenox therapeutic dose for PE 06/25 after DVT left leg due to immobile status Debility remains in CT NPO Admission Status: Inpatient Order (span 2 midnights) Reason for Inpatient Admission: SBO in mentally challenged patient will require 3 days Diagnosis/Problems Diagnosis/Problems (1) Small bowel obstruction Status: Acute (2) Ileus Status: Acute (3) Breast cancer in female Status: Chronic Qualifiers: Breast location: unspecified site of breast Estrogen receptor status: unspecified Laterality: unspecified laterality Qualified Codes: C50.919 - Malignant neoplasm of unspecified site of unspecified female breast (4) Pulmonary embolism Status: Chronic Qualifiers: Pulmonary embolism type: unspecified Chronicity: unspecified Acute cor pulmonale presence: without acute cor pulmonale Qualified Codes: I26.99 - Other pulmonary embolism without acute cor pulmonale (5) Non-insulin dependent type 2 diabetes mellitus Status: Chronic (6) Pain in the abdomen Status: Acute Qualifiers: Abdominal location: generalized Qualified Codes: R10.84 - Generalized abdominal pain Clinical Quality Measures DVT/VTE Risk/Contraindication: Risk Factor Score Per Nursin RFS Level Per Nursing on Admit: 4+=Very High GAYLE JACKSON DO Aug 23, 2018 10:35
[2018-08-23] MEDS ORDERED: DIATRIZOATE MEGLUM/SODIUM 37% 120 ML (GASTROGRAFIN) NG ONE (10:45)
[2018-08-23] MEDS ORDERED: APIX5TAB PO (11:05)
[2018-08-23] MEDS ORDERED: FLUT16SP22 NS (11:05)
--- NOTE | 2018-08-23 11:05 | NUR ---
REVIEWED MED REC WITH THE LIST OF MEDICATIONS SENT OVER FROM [facility].
[2018-08-23 12:00] VITALS: BP 138/80
--- NOTE | 2018-08-23 12:53 | NUR ---
CM/SS, respond to consult. PLAN: Patient resides at her home [facility] and [facility]. If patient returns to her home, [facility] should be contacted for transportation: [phone] C: Resume [facility]. SUMMARY: Patient known to story writer from previous hospitalizations. She continues to reside at home with a team of support for care 6.5 hours daily plus overnight sleep cycle staff. Patient was never and has no children. Her brother was her Conservator for 47 years until his 08/2017. His is Jazzy and they have a daughter Ella Iniguez. Jazzy was appointed Successor Conservator 02/02/18 and Jazzy and Ella have indicated there is a POA in place. [facility] SW is Anamika Bernal: [phone] will notify her when patient has been released from hospital and returned home so that patient can be reassessed for care needs and hours increased if appropriate. The patient is mostly agency dependent. Jazzy has her own health issues and does not drive. Ella resides in [place] and does work as well. [address] staff updated story writer that Ella is herself hospitalized at this time so can not assist with discharge. The preference of all is return home when medically stable.
--- NOTE | 2018-08-23 13:20 | Diagnostic Imaging Report ---
Indication: Small bowel obstruction Small bowel follow-through Gastrografin was administered through the NG tube. The stomach empties promptly. Small bowel is not dilated. Mucosal folds are normal. Transit time to colon was one hour 45 minutes. Impression: No evidence for small bowel obstruction. Dictated by: Dictated on workstation # [id number]
[2018-08-23 16:13] VITALS: BP 154/76
--- NOTE | 2018-08-23 17:18 | Progress Note - Surgery ---
Subjective Date Seen by a Provider: Aug 23, 2018 Time Seen by a Provider: 07:45 Subjective/Events-last exam Patient is still feeling distended. Minimal abd discomfort. Ng tube in place. No new complaints. SBFT ordered for this morning. No flatus or bm. Objective Exam Vital Signs Date Time Temp Pulse Resp B/P (MAP) Pulse Ox O2 Delivery O2 Flow Rate FiO2 08/23/18 16:13 98.4 102 18 154/76 (102) 92 Room Air 08/23/18 12:00 99.2 103 20 138/80 (99) 95 Room Air 08/23/18 08:00 96.3 82 20 123/70 (87) 92 Room Air 08/23/18 08:00 92 Room Air 08/23/18 03:56 98.1 79 23 117/58 (77) 93 Room Air 08/23/18 00:07 99.5 81 18 114/59 (77) 91 Room Air 08/22/18 22:30 91 Room Air 08/22/18 22:19 98.2 86 18 141/63 94 Room Air 08/22/18 19:42 98.0 83 16 130/57 (81) 93 Room Air I & O 08/23/18 07:00 Intake Total 0 ml Output Total 500 ml Balance -500 ml Capillary Refill : Less Than 3 SecondsLess Than 3 Seconds General Appearance: No Apparent Distress HEENT: PERRL/EOMI (ng tube ) Neck: Non Tender Respiratory: Chest Non Tender, No Accessory Muscle Use, No Respiratory Distress Cardiovascular: Regular Rate, Rhythm Gastrointestinal: distended, tenderness (min diffusely), hernia (incisional below umbilicus) Neurologic/Psychiatric: Alert, Normal Mood/Affect Skin: Normal Color, Warm/Dry Lymphatic: No Adenopathy Results Lab Laboratory Tests 08/23/18 05:36: White Blood Count 7.3, Red Blood Count 3.43L, Hemoglobin 10.7L, Hematocrit 34L, Mean Corpuscular Volume 98, Mean Corpuscular Hemoglobin 31, Mean Corpuscular Hemoglobin Concent 32, Red Cell Distribution Width 13.7, Platelet Count 205, Mean Platelet Volume 9.6, Neutrophils (%) (Auto) 71, Lymphocytes (%) (Auto) 15, Monocytes (%) (Auto) 12, Eosinophils (%) (Auto) 2, Basophils (%) (Auto) 0, Neutrophils # (Auto) 5.2, Lymphocytes # (Auto) 1.1, Monocytes # (Auto) 0.8, Eosinophils # (Auto) 0.1, Basophils # (Auto) 0.0, Sodium Level 137, Potassium Level 5.2H, Chloride Level 105, Carbon Dioxide Level 22, Anion Gap 10, Blood Urea Nitrogen 30H, Creatinine 0.84, Estimat Glomerular Filtration Rate > 60, BUN/Creatinine Ratio 36, Glucose Level 103, Calcium Level 9.1, Corrected Calcium 9.5, Total Bilirubin 0.3, Aspartate Amino Transf (AST/SGOT) 22, Alanine Aminotransferase (ALT/SGPT) 17, Alkaline Phosphatase 70, Total Protein 6.1L, Albumin 3.5 Assessment/Plan Assessment/Plan Assessment/Plan partial small bowel obstruction incisional hernia npo iv hydration ng tube LIWS small bowel follow through today hernia reducible await bowel function small bowel follow through reviewed and no evidence of obstruction at this time. await bowel function Clinical Quality Measures DVT/VTE Risk/Contraindication: Risk Factor Score Per Nursin RFS Level Per Nursing on Admit: 4+=Very High RONALDO CHONG DO Aug 23, 2018 17:18
[2018-08-23 20:00] VITALS: BP 171/66
[2018-08-23] MEDS ORDERED: LORazepam INJ 2 MG/ML (ATIVAN) VIAL IVP PRN (21:00)
[2018-08-24 00:30] VITALS: BP 140/78
[2018-08-24] MEDS: fentaNYL INJECTION 100 MCG/2 ML AMP IVP PRN ×2 (00:38→20:40)
[2018-08-24] MEDS: POTASSIUM CHLORIDE INJ 10 MEQ in NS IV 1000 ML 1,000 ML IV SCH ×2 (05:08→23:56)
[2018-08-24 07:01] LABS: BASOPHILS % (AUTO) 0 % (0-10); EOSINOPHILS % (AUTO) 1 % (0-10); HEMATOCRIT 34 % (35-52); HEMOGLOBIN 10.7 G/DL (11.5-16.0); LYMPHOCYTES # (AUTO) 1.3 X 10^3 (1.0-4.0); LYMPHOCYTES % (AUTO) 16 % (12-44); MEAN CORPUSCULAR HEMOGLOBIN 31 PG (25-34); MEAN CORPUSCULAR HGB CONC 32 G/DL (32-36); MEAN CORPUSCULAR VOLUME 98 FL (80-99); MONOCYTES # (AUTO) 0.8 X 10^3 (0.0-1.0); MONOCYTES % (AUTO) 11 % (0-12); NEUTROPHILS # (AUTO) 5.6 X 10^3 (1.8-7.8); NEUTROPHILS % (AUTO) 72 % (42-75); PLATELET COUNT 212 10^3/uL (130-400); RED CELL DISTRIBUTION WIDTH 13.8 % (10.0-14.5); WHITE BLOOD COUNT 7.8 10^3/uL (4.3-11.0)
[2018-08-24 07:25] LABS: ALANINE AMINOTRANSFERASE 18 U/L (0-55); ALBUMIN 3.9 GM/DL (3.2-4.5); ALKALINE PHOSPHATASE 75 U/L (40-136); BILIRUBIN,TOTAL 0.2 MG/DL (0.1-1.0); BUN/CREATININE RATIO 26; CALCIUM 9.4 MG/DL (8.5-10.1); CARBON DIOXIDE 21 MMOL/L (21-32); CHLORIDE 106 MMOL/L (98-107); CREATININE SERUM 0.72 MG/DL (0.60-1.30); GFR ESTIMATED > 60; GLUCOSE 112 MG/DL (70-105); POTASSIUM 4.1 MMOL/L (3.6-5.0); SODIUM 140 MMOL/L (135-145)
[2018-08-24 08:10] VITALS: BP 159/70
[2018-08-24] MEDS: ENOXAPARIN 80 MG/0.8 ML (LOVENOX) SYR SC SCH ×2 (08:42→20:41)
--- NOTE | 2018-08-24 10:20 | Progress Note - Hospitalist ---
Subjective HPI/CC On Admission Date Seen by Provider: Aug 24, 2018 Time Seen by Provider: 09:30 CC: Small bowel obstruction HPI: This is a 77yo mentally challenged white female known to me from June admission due to DVT/PE and required oxygen supplementation following an immobilized states after left foot ulceration was managed by Dr. Hutchins s/p excision showing a verruca that had been maintained on oral anticoagulation that presented to the ER with abdominal pain found to have CT findings consistent with small bowel obstruction. She had an NG tube placed, IV fluids, and supportive care. Has been maintained through the night and Dr. Dash has been consulted. She will be going down for a small bowel follow through and oxygen saturation is maintained at 92%. Difficult hx obtained due to mentally challenged state. She reports abdominal pain and nausea currently. Subjective/Events-last exam Bowels are moving so NG tube and clear liquid was initiated. Had a nose bleed so holding Lovenox. PO meds including psych meds will be restarted. Tele-setter maintained. Overall very difficult to get any type of history from the Pt due to mentally challenged state. Will monitor Pt closely in the mean time. Review of Systems General: Fatigue Neurological: Confusion Objective Exam Vital Signs Vital Signs Date Time Temp Pulse Resp B/P (MAP) Pulse Ox O2 Delivery O2 Flow Rate FiO2 08/24/18 16:13 98.8 102 18 168/70 (102) 97 Room Air Capillary Refill : Less Than 3 SecondsLess Than 3 Seconds General Appearance: WD/WN, Anxious, Chronically ill, Mild Distress HEENT: PERRL/EOMI, Normal ENT Inspection, Pharynx Normal, Moist Mucous Membran es Neck: Full Range of Motion, Normal Inspection, Non Tender Respiratory: Chest Non Tender, Lungs Clear, Normal Breath Sounds, No Accessory Muscle Use, No Respiratory Distress Cardiovascular: Regular Rate, Rhythm, No Edema, No Gallop, No JVD, No Murmur, Normal Peripheral Pulses Gastrointestinal: No Organomegaly, No Pulsatile Mass, Soft, Abnormal Bowel Sounds, Distended, Guarding Back: Normal Inspection, No CVA Tenderness, No Vertebral Tenderness Extremity: Normal Capillary Refill, Normal Inspection, Normal Range of Motion, Non Tender, No Calf Tenderness, No Pedal Edema Neurologic/Psychiatric: Alert, No Motor/Sensory Deficits, Normal Mood/Affect, 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 Assessment/Plan Assessment and Plan Assess & Plan/Chief Complaint Assessment: Partial SBO acute versus ileus awaiting small bowel follow through results consulting Dr Dash h/o Pulmonary embolism Non-insulin dependent type 2 diabetes mellitus Breast cancer in female Mentally challenged O2 dependent Epistaxis requiring hold Lovenox Plan: Appreciate Dr Dash CLD Lovenox therapeutic dose for PE 06/25 after DVT left leg due to immobile status Debility remains in NH Diagnosis/Problems Diagnosis/Problems (1) Small bowel obstruction Status: Acute (2) Ileus Status: Acute (3) Breast cancer in female Status: Chronic Qualifiers: Breast location: unspecified site of breast Estrogen receptor status: unspecified Laterality: unspecified laterality Qualified Codes: C50.919 - Malignant neoplasm of unspecified site of unspecified female breast (4) Pulmonary embolism Status: Chronic Qualifiers: Pulmonary embolism type: unspecified Chronicity: unspecified Acute cor pulmonale presence: without acute cor pulmonale Qualified Codes: I26.99 - Other pulmonary embolism without acute cor pulmonale (5) Non-insulin dependent type 2 diabetes mellitus Status: Chronic (6) Pain in the abdomen Status: Acute Qualifiers: Abdominal location: generalized Qualified Codes: R10.84 - Generalized abdominal pain Clinical Quality Measures DVT/VTE Risk/Contraindication: Risk Factor Score Per Nursin RFS Level Per Nursing on Admit: 4+=Very High BRIANNA HERNANDEZ DO Aug 24, 2018 10:20
[2018-08-24] MEDS ORDERED: FLUTICASONE NASAL SPRAY (FLONASE) 16 GM BTL NS PRN (10:30)
--- NOTE | 2018-08-24 11:52 | Physical Therapy Evaluation ---
PT Evaluation-General Medical Diagnosis Admission Date Aug 22, 2018 at 18:10 Medical Diagnosis: small bowel obstruction Onset Date: Aug 22, 2018 Therapy Diagnosis Therapy Diagnosis: debility/weakness Height/Weight Height (Feet): 4 Height (Inches): 11.00 Weight (Pounds): 158 Weight (Ounces): 12.8 Precautions Precautions/Isolations: Fall Prevention Referral Physician: Ekta Reason for Referral: Evaluation/Treatment Medical History Pertinent Medical History: Arthritis, DM, HTN, Neuropathy Additional Medical History [facility] [place] Current History ER with abdominal pain and distention x 4 day Reviewed History: Yes Social History Home: Apartment Prior/Core FIM Prior Level of Function Therapy Code Descriptions/Definitions Functional Chase Measure: 0=Not Assessed/NA 4=Minimal Assistance 1=Total Assistance 5=Supervision or Setup 2=Maximal Assistance 6=Modified Chase 3=Moderate Assistance 7=Complete Chase Therapy Quality Codes: 6 Independent with activity with or without an assistive device 5 Patient requires set up or clean up by helper. Patient completes activity by themselves 4 Supervision or touching assist (CGA). [place] provide cues , steadying assist 3 The helper provides less than half the effort to complete the activity 2 The helper provides more than half the effort to complete the activity 1 Dependent. The helper does all the effort to complete an activity 7 Patient refused to complete or attempt activity 9 The patient did not perform the activity before the current illness or injury 88 Not attempted due to Medical conditions or safety concerns Functional Abilities and Goals: Independent: Patient completed the activities by him/herself, with or without an assistive device, with no assistance from a helper. Needed Some Help: Patient needed partial assistance from another person to complete activities. Dependent: A helper completed the activities for the patient. Unknown: Not Applicable: Bed Mobility: 6 Transfers (B,C,W/C) (FIM): 6 Gait: 6 This PT questions PLOF PT Evaluation-Current Subjective Patient is confused and demands a drink of H2O, however, RN report she is NPO and patient begins to yell and becomes highly agitated. Objective Patient Orientation: Confused Problem Solving: Poor ROM/Strength ROM Lower Extremities bilateral LE WFL Strength Lower Extremities 3/5 grossly bilateral LE Integumentary/Posture Integumentary refer to nursing notes Bowel Incontinence: Yes Bladder Incontinence: Yes Posture WFL Neuromuscular (Tone, Coordination, Reflexes) grossly intact Sensory Vision: Functional Hearing: Impaired Sensation Right Lower Extremit: Impaired Sensation Left Lower Extremity: Impaired Transfers Therapy Code Descriptions/Definitions Functional Chase Measure: 0=Not Assessed/NA 4=Minimal Assistance 1=Total Assistance 5=Supervision or Setup 2=Maximal Assistance 6=Modified Chase 3=Moderate Assistance 7=Complete Chase Transfers (B, C, W/C) (FIM): 4 Scootin Rollin Supine to/from Sit: 4 Gait Mode of Locomotion: Walk Anticipated Mode of Locomotion: Both Gait (FIM): 2 Distance (FIM): 2=624-42 ft Distance: 75' Gait Level of Assist: 3 Gait Persons Needed: 1 Gait Assistive Device: FWW Comments/Gait Description patient is impulsive to let go of FWW and reaches for rail or bed for stability Balance Sitting Static: Fair Sitting Dynamic: Fair Standing Static: Fair Standing Dynamic: Fair Assessment/Needs 77 y.o. female, will benefit from skilled PT to address functional strength and mobility to improve current LOF. From a PT standpoint, patient will require extended care facility to ensure safety with all gross motor skills. Rehab Potential: Poor PT [employer] Goals Penitentiary Goals PT Penitentiary Goals Time Frame: Sep 02, 2018 Transfers (B,C,W/C) (FIM): 5 Gait (FIM): 2 Gait distance (FIM): 3=189-09 ft Distance: 100' Gait Level of Assist: 5 Gait Assistive Device: FWW PT Plan Problem List Problem List: Activity Tolerance, Functional Strength, Safety, Balance, Gait, Transfer, Bed Mobility Treatment/Plan Treatment Plan: Continue Plan of Care Treatment Plan: Bed Mobility, Education, Functional Activity Lori, Functional Strength, Gait, Safety, Therapeutic Exercise, Transfers Treatment Duration: Sep 02, 2018 Frequency: 6 times per week Estimated Hrs Per Day: .25 hour per day Patient and/or Family Agrees t: Yes Safety Risks/Education Patient Education: Safety Issues Teaching Recipient: Patient Teaching Methods: Demonstration, Discussion Response to Teaching: Reinforcement Needed Discharge Recommendations Therapy D/C Recommendations: [facility] Placement, Long Term (TCU/NH) Time/GCodes Time In: 1030 Time Out: 1046 Total Billed Treatment Time: 16 Total Billed Treatment 1 visit EVModC 16 min JONATHAN BOO PT Aug 24, 2018 11:52
[2018-08-24] MEDS: GABAPENTIN 600 MG (NEURONTIN) TAB PO SCH ×3 (13:46→20:41)
[2018-08-24 16:13] VITALS: BP 168/70
--- NOTE | 2018-08-24 20:09 | Progress Note - Surgery ---
Subjective Date Seen by a Provider: Aug 24, 2018 Time Seen by a Provider: 08:40 Subjective/Events-last exam patient passing liquid stools. still with some abdominal discomfort. denies n/v fever sweats chills. smbt no evidence of obstruction Objective Exam Vital Signs Date Time Temp Pulse Resp B/P (MAP) Pulse Ox O2 Delivery O2 Flow Rate FiO2 08/24/18 16:13 98.8 102 18 168/70 (102) 97 Room Air 08/24/18 08:10 99.5 105 18 159/70 (99) 92 Room Air 08/24/18 08:00 97 Room Air 08/24/18 00:30 98.3 99 20 140/78 (98) 93 Room Air I & O 08/24/18 07:00 Intake Total 2010 ml Output Total 3100 ml Balance -1090 ml Capillary Refill : Less Than 3 SecondsLess Than 3 Seconds General Appearance: WD/WN, Anxious, Mild Distress HEENT: PERRL/EOMI, Normal ENT Inspection (ng tube), Moist Mucous Membranes Neck: Full Range of Motion, Normal Inspection, Non Tender Respiratory: Chest Non Tender, No Accessory Muscle Use, No Respiratory Distress Cardiovascular: Regular Rate, Rhythm, No Edema, No Gallop, No JVD, No Murmur, Normal Peripheral Pulses Gastrointestinal: distended (less), tenderness (min diffusely), hernia (incisional below umbilicus) Extremity: Normal Capillary Refill, Normal Inspection, Normal Range of Motion, Non Tender, No Calf Tenderness, No Pedal Edema Neurologic/Psychiatric: Alert, No Motor/Sensory Deficits, Normal 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/Affect, 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, Disoriented Skin: Normal Color, Warm/Dry Lymphatic: No Adenopathy Results Lab Laboratory Tests 08/24/18 06:15: White Blood Count 7.8, Red Blood Count 3.44L, Hemoglobin 10.7L, Hematocrit 34L, Mean Corpuscular Volume 98, Mean Corpuscular Hemoglobin 31, Mean Corpuscular Hemoglobin Concent 32, Red Cell Distribution Width 13.8, Platelet Count 212, Mean Platelet Volume 10.0, Neutrophils (%) (Auto) 72, Lymphocytes (%) (Auto) 16, Monocytes (%) (Auto) 11, Eosinophils (%) (Auto) 1, Basophils (%) (Auto) 0, Neutrophils # (Auto) 5.6, Lymphocytes # (Auto) 1.3, Monocytes # (Auto) 0.8, Eosinophils # (Auto) 0.0, Basophils # (Auto) 0.0 08/24/18 06:20: Sodium Level 140, Potassium Level 4.1, Chloride Level 106, Carbon Dioxide Level 21, Anion Gap 13, Blood Urea Nitrogen 19H, Creatinine 0.72, Estimat Glomerular Filtration Rate > 60, BUN/Creatinine Ratio 26, Glucose Level 112H, Calcium Level 9.4, Corrected Calcium 9.5, Total Bilirubin 0.2, Aspartate Amino Transf (AST/SGOT) 25, Alanine Aminotransferase (ALT/SGPT) 18, Alkaline Phosphatase 75, Total Protein 7.0, Albumin 3.9 Assessment/Plan Assessment/Plan Assessment/Plan partial small bowel obstruction incisional hernia iv hydration ng tube -pull hernia reducible having liquid stools, will start on clears smalll bowel follow through reviewed and no evidence of obstruction at this time . await bowel function Clinical Quality Measures DVT/VTE Risk/Contraindication: Risk Factor Score Per Nursin RFS Level Per Nursing on Admit: 4+=Very High RONALDO CHONG DO Aug 24, 2018 20:09
[2018-08-24] MEDS: PRIMIDONE 50 MG TAB (MYSOLINE) PO SCH (20:41)
[2018-08-24] MEDS: ALPRAZolam 0.5 MG (XANAX) TAB PO SCH (20:41)
[2018-08-24] MEDS ORDERED: MONTELUKAST 10 MG (SINGULAIR) TAB PO SCH (21:00)
[2018-08-25 00:31] VITALS: BP 126/78
[2018-08-25 05:36] LABS: BASOPHILS % (AUTO) 1 % (0-10); EOSINOPHILS # (AUTO) 0.2 10^3/uL (0.0-0.3); EOSINOPHILS % (AUTO) 3 % (0-10); HEMATOCRIT 34 % (35-52); HEMOGLOBIN 10.6 G/DL (11.5-16.0); LYMPHOCYTES # (AUTO) 1.2 X 10^3 (1.0-4.0); LYMPHOCYTES % (AUTO) 18 % (12-44); MEAN CORPUSCULAR HEMOGLOBIN 31 PG (25-34); MEAN CORPUSCULAR HGB CONC 31 G/DL (32-36); MEAN CORPUSCULAR VOLUME 99 FL (80-99); MEAN PLATELET VOLUME 9.8 FL (7.4-10.4); MONOCYTES # (AUTO) 0.8 X 10^3 (0.0-1.0); MONOCYTES % (AUTO) 12 % (0-12); NEUTROPHILS # (AUTO) 4.4 X 10^3 (1.8-7.8); NEUTROPHILS % (AUTO) 67 % (42-75); PLATELET COUNT 197 10^3/uL (130-400); RED CELL DISTRIBUTION WIDTH 13.6 % (10.0-14.5); WHITE BLOOD COUNT 6.6 10^3/uL (4.3-11.0)
[2018-08-25 06:00] LABS: ALANINE AMINOTRANSFERASE 24 U/L (0-55); ALBUMIN 3.5 GM/DL (3.2-4.5); ALKALINE PHOSPHATASE 65 U/L (40-136); BILIRUBIN,TOTAL 0.3 MG/DL (0.1-1.0); BUN/CREATININE RATIO 31; CALCIUM 8.8 MG/DL (8.5-10.1); CARBON DIOXIDE 21 MMOL/L (21-32); CHLORIDE 104 MMOL/L (98-107); CREATININE SERUM 0.68 MG/DL (0.60-1.30); GFR ESTIMATED > 60; GLUCOSE 98 MG/DL (70-105); POTASSIUM 3.6 MMOL/L (3.6-5.0); SODIUM 136 MMOL/L (135-145); TOTAL PROTEIN 6.4 GM/DL (6.4-8.2)
[2018-08-25 08:00] VITALS: BP 151/76
[2018-08-25] MEDS ORDERED: NON-FORMULARY MEDICATION 1 EA EA (Mirabegron (Myrbetriq) 25 MG) PO SCH (09:00)
[2018-08-25] MEDS ORDERED: SERTRALINE 50 MG (ZOLOFT) TABLET PO SCH (09:00)
[2018-08-25] MEDS ORDERED: PANTOPRAZOLE 20 MG TABLET (PROTONIX) PO SCH (09:00)
[2018-08-25] MEDS ORDERED: VALSARTAN 80 MG (DIOVAN) TAB PO SCH (09:00)
[2018-08-25] MEDS: ENOXAPARIN 80 MG/0.8 ML (LOVENOX) SYR SC SCH (09:03)
[2018-08-25] MEDS: POTASSIUM CHLORIDE INJ 10 MEQ in NS IV 1000 ML 1,000 ML IV SCH (09:07)
[2018-08-25] MEDS: PRIMIDONE 50 MG TAB (MYSOLINE) PO SCH (09:10)
[2018-08-25] MEDS: ALPRAZolam 0.5 MG (XANAX) TAB PO SCH (09:10)
[2018-08-25] MEDS: GABAPENTIN 600 MG (NEURONTIN) TAB PO SCH ×2 (09:11→14:45)
--- NOTE | 2018-08-25 10:40 | D/C HH Face to Face Order ---
D/C Face to Face Orders Instructions for Patient Via [facility], Patient Instructions/FollowUp: [facility] 08/30/18 at 1500 Physician to follow Patient: [facility] Discharge Diet for Home: No Restrictions Patient Problems: s/p ileus h/o PE Patient Data-Allergies,Ht & Wt Patient Allergies: Coded Allergies: No Known Drug Allergies (Unverified , 06/11/18) Height (Feet): 4 Height (Inches): 11.00 Weight (Pounds): 158 Weight (Ounces): 12.8 Home Health Need/Face to Face Date of Face to Face: Aug 25, 2018 Clinical Findings: Generalized weakness and fatigue, Muscle weakness, Pain with ambulation, Shortness of breath, Unsteady gait I have seen Pt [id number]: Yes Discharged To: Home Diagnosis/Conditions: s/p ileus h/o PE Patient is Homebound due to: CognItive deficits, Marika fall risk due to instabilty, Muscle weakness, Shortness of breath/distress Homebound Status Due to the above stated illness, injury or surgical procedure (medical condition or diagnosis) and associated clinical findings, the patient is homebound because of his/her inability to leave home except with aid of a supportive device and/or person AND leaving the home requires a considerable and taxing effort or is medically contraindicated. Pt req the following assistanc: [facility] Nursing Orders Home Health Services Order: Nursing Services, Rn Documentation Specialist-Evaluate & Treat, Physical Therapy-Evaluate & Treat Home Health Infusion Therapy Line Start Date: Aug 22, 2018 Certify Stmt I certify that this patient is under my care and that I, a nurse practitioner or a physician; a assistant professor of biology working with me, had a face to face encounter that - meets the physician face to face encounter requirements with this patient as dated. BRIANNA HERNANDEZ DO Aug 25, 2018 10:40
--- NOTE | 2018-08-25 10:41 | Discharge Summary ---
Diagnosis/Chief Complaint Date of Admission Aug 22, 2018 at 18:10 Date of Discharge Discharge Date: Aug 25, 2018 Admission Diagnosis Assessment: Partial SBO acute versus ileus awaiting small bowel follow through results consulting Dr Dash h/o Pulmonary embolism Non-insulin dependent type 2 diabetes mellitus Breast cancer in female Mentally challenged O2 dependent Plan: Appreciate Dr Dash NPO Lovenox therapeutic dose for PE 06/25 after DVT left leg due to immobile status Debility remains in AL NPO Discharge Diagnosis (1) Ileus Status: Resolved (2) Breast cancer in female Status: Chronic (3) Pulmonary embolism Status: Chronic (4) Non-insulin dependent type 2 diabetes mellitus Status: Chronic (5) Pain in the abdomen Status: Acute Discharge Summary Discharge Physical Exam Allergies: Coded Allergies: No Known Drug Allergies (Unverified , 06/11/18) Vitals & I&Os Vital Signs Date Time Temp Pulse Resp B/P (MAP) Pulse Ox O2 Delivery O2 Flow Rate FiO2 08/25/18 08:00 99.3 85 20 151/76 (101) 98 Room Air General Appearance: No Apparent Distress, WD/WN, Chronically ill Respiratory: Chest Non Tender, Lungs Clear, Normal Breath Sounds, No Accessory Muscle Use, No Respiratory Distress Cardiovascular: Regular Rate, Rhythm, No Edema, No Gallop, No JVD, No Murmur, Normal Peripheral Pulses Neurologic/Psychiatric: Alert, Oriented x3, No Motor/Sensory Deficits, Normal Mood/Affect Hospital Course Was the Problem List Reviewed?: Yes Hospital course: Patient had an uneventful hospital course although it was lengthy for 3 days inpatient due to suspected small bowel obstruction so Dr. Dash was consulted had small bowel follow-through that resulted in no evidence of any obstruction so severe ileus was treated with conservative management with supportive care IV fluids and nothing by mouth status she did regain good bowel function and was able to be discharged on all of her same medication to home health care home skilled care as she had previously. Labs (last 24 hrs) Laboratory Tests 08/25/18 05:07: White Blood Count 6.6, Red Blood Count 3.43L, Hemoglobin 10.6L, Hematocrit 34L, Mean Corpuscular Volume 99, Mean Corpuscular Hemoglobin 31, Mean Corpuscular Hemoglobin Concent 31L, Red Cell Distribution Width 13.6, Platelet Count 197, Mean Platelet Volume 9.8, Neutrophils (%) (Auto) 67, Lymphocytes (%) (Auto) 18, Monocytes (%) (Auto) 12, Eosinophils (%) (Auto) 3, Basophils (%) (Auto) 1, Neutrophils # (Auto) 4.4, Lymphocytes # (Auto) 1.2, Monocytes # (Auto) 0.8, Eosinophils # (Auto) 0.2, Basophils # (Auto) 0.0, Sodium Level 136, Potassium Level 3.6, Chloride Level 104, Carbon Dioxide Level 21, Anion Gap 11, Blood Urea Nitrogen 21H, Creatinine 0.68, Estimat Glomerular Filtration Rate > 60, BUN/Creatinine Ratio 31, Glucose Level 98, Calcium Level 8.8, Corrected Calcium 9.2, Total Bilirubin 0.3, Aspartate Amino Transf (AST/SGOT) 30, Alanine Aminotransferase (ALT/SGPT) 24, Alkaline Phosphatase 65, Total Protein 6.4, Albumin 3.5 Patient resulted labs reviewed. Pending Labs Laboratory Tests 08/25/18 05:07: White Blood Count 6.6, Red Blood Count 3.43, Hemoglobin 10.6, Hematocrit 34, Mean Corpuscular Volume 99, Mean Corpuscular Hemoglobin 31, Mean Corpuscular Hemoglobin Concent 31, Red Cell Distribution Width 13.6, Platelet Count 197, Mean Platelet Volume 9.8, Neutrophils (%) (Auto) 67, Lymphocytes (%) (Auto) 18, Monocytes (%) (Auto) 12, Eosinophils (%) (Auto) 3, Basophils (%) (Auto) 1, Neutrophils # (Auto) 4.4, Lymphocytes # (Auto) 1.2, Monocytes # (Auto) 0.8, Eosinophils # (Auto) 0.2, Basophils # (Auto) 0.0, Sodium Level 136, Potassium Level 3.6, Chloride Level 104, Carbon Dioxide Level 21, Anion Gap 11, Blood Urea Nitrogen 21, Creatinine 0.68, Estimat Glomerular Filtration Rate > 60, BUN/Creatinine Ratio 31, Glucose Level 98, Calcium Level 8.8, Corrected Calcium 9.2, Total Bilirubin 0.3, Aspartate Amino Transf (AST/SGOT) 30, Alanine Aminotransferase (ALT/SGPT) 24, Alkaline Phosphatase 65, Total Protein 6.4, Albumin 3.5 Discussion & Recommendations Discharge Planning: <30 minutes discharge planning Discharge Home Medications: Active Scripts Active Tramadol HCl 50 Mg Tablet 50 Mg PO Q6H PRN Reported Fluticasone Propionate 16 Gm [place].susp 2 Sprays NS DAILY PRN Eliquis (Apixaban) 5 Mg Tablet 5 Mg PO BID Mysoline (Primidone) 50 Mg Tablet 100 Mg PO BID TAKES 2 (50MG) TABLETS Multivitamins (Multivitamin) 1 Each Tablet 1 Tab PO DAILY Montelukast Sodium 10 Mg Tablet 10 Mg PO HS Glipizide 5 Mg Tablet 5 Mg PO BID Aspirin EC (Aspirin) 81 Mg Tablet.dr 81 Mg PO DAILY Calcium (Calcium Carbonate) 600 Mg Tablet 600 Mg PO DAILY Sertraline HCl 50 Mg Tablet 50 Mg PO DAILY Myrbetriq (Mirabegron) 25 Mg Tab.er.24h 25 Mg PO DAILY Valsartan 160 Mg Tablet 80 Mg PO DAILY TAKES 1/2 (160MG) TABLET Gabapentin 600 Mg Tablet 600 Mg PO QID Gemfibrozil 600 Mg Tablet 600 Mg PO BID Alprazolam 0.5 Mg Tablet 0.5 Mg PO BID Omeprazole 20 Mg Capsule.dr 20 Mg PO DAILY Allopurinol 100 Mg Tablet 100 Mg PO DAILY Instructions to patient/family Please see electronic discharge instructions given to patient. Clinical Quality Measures DVT/VTE Risk/Contraindication: Risk Factor Score Per Nursin RFS Level Per Nursing on Admit: 4+=Very High Problem Qualifiers (1) Breast cancer in female: Breast location: unspecified site of breast Estrogen receptor status: unspeci fied Laterality: unspecified laterality Qualified Codes: C50.919 - Malignant neoplasm of unspecified site of unspecified female breast (2) Pulmonary embolism: Pulmonary embolism type: unspecified Chronicity: unspecified Acute cor pulmonale presence: without acute cor pulmonale Qualified Codes: I26.99 - Other pulmonary embolism without acute cor pulmonale (3) Pain in the abdomen: Abdominal location: generalized Qualified Codes: R10.84 - Generalized ab dominal pain BRIANNA HERNANDEZ DO Aug 25, 2018 10:41
--- NOTE | 2018-08-25 11:49 | Physical Therapy Daily Note ---
PT Daily Note-Current Subjective Agrees to PT. No complaints. May dc today Transfers Therapy Code Descriptions/Definitions Functional [place] Measure: 0=Not Assessed/NA 4=Minimal Assistance 1=Total Assistance 5=Supervision or Setup 2=Maximal Assistance 6=Modified [place] 3=Moderate Assistance 7=Complete [place] Therapy Quality Codes: 6 Independent with activity with or without an assistive device 5 Patient requires set up or clean up by helper. Patient completes activity by themselves 4 Supervision or touching assist (CGA). [place] provide cues , steadying assist 3 The helper provides less than half the effort to complete the activity 2 The helper provides more than half the effort to complete the activity 1 Dependent. The helper does all the effort to complete an activity 7 Patient refused to complete or attempt activity 9 The patient did not perform the activity before the current illness or injury 88 Not attempted due to Medical conditions or safety concerns Treatments Sit to stand with SBA. Pt walked x 50 ft with FWW with SBA. Pt up in chair with needs met and chair alarm activated after treatment. Assessment Current Status: Good Progress No noted LOB episodes. PT Half-Way Goals Full Time Babysitter Goals PT Full Time Babysitter Goals Time Frame: Sep 02, 2018 Transfers (B,C,W/C) (FIM): 5 Gait (FIM): 2 Gait distance (FIM): 2=054-19 ft Distance: 100' Gait Level of Assist: 5 Gait Assistive Device: FWW PT Plan Problem List Problem List: Activity Tolerance, Functional Strength, Safety Treatment/Plan Treatment Plan: Continue Plan of Care (vs dc) Treatment Plan: Bed Mobility, Education, Functional Activity Lori, Functional Strength, Gait, Safety, Therapeutic Exercise, Transfers Treatment Duration: Sep 02, 2018 Frequency: 6 times per week Estimated Hrs Per Day: .25 hour per day Patient and/or Family Agrees t: Yes Safety Risks/Education Patient Education: Safety Issues Teaching Recipient: Patient Teaching Methods: Discussion Response to Teaching: Reinforcement Needed Time/GCodes Time In: 1000 Time Out: 1023 Total Billed Treatment Time: 23 Total Billed Treatment visit GT 23 KENYATTA KAMINSKI PT Aug 25, 2018 11:49
--- NOTE | 2018-08-25 13:00 | NUR ---
CM/SS. Patient discharged back home with her established network of caregivers and supports: [facility]: [facility] Layla Otto, reinstated. IN-HOME SERVICES: [facility] updated fully about patient discharge. They will transport at 1400. Unit RN and Salesperson Flowers updated to have patient ready. Addendum: 08/25/18 at 1313 by ELADIA JAMIL Contacted YASMINE/Conservator Jazzy Tapiaer and spoke with her daughter, Ella Iniguez to update both of discharge.
[2018-08-25 14:55] VITALS: BP 151/76
--- NOTE | 2018-08-25 16:40 | Progress Note - Surgery ---
Subjective Date Seen by a Provider: Aug 25, 2018 Time Seen by a Provider: 09:14 Subjective/Events-last exam Having stools and passing flatus. Denies n/v. tolerating liquids. Planning dc home today. Objective Exam Vital Signs Date Time Temp Pulse Resp B/P (MAP) Pulse Ox O2 Delivery O2 Flow Rate FiO2 08/25/18 14:55 85 20 151/76 98 Room Air 08/25/18 08:00 99.3 85 20 151/76 (101) 98 Room Air 08/25/18 08:00 Room Air 08/25/18 00:31 98.0 86 19 126/78 (94) 96 Room Air 08/24/18 20:00 Room Air I & O 08/25/18 07:00 Intake Total 1897 ml Output Total 2800 ml Balance -903 ml Capillary Refill : Less Than 3 SecondsLess Than 3 Seconds General Appearance: No Apparent Distress, WD/WN, Chronically ill HEENT: PERRL/EOMI, Normal ENT Inspection Neck: Full Range of Motion, Normal Inspection, Non Tender Respiratory: Chest Non Tender, No Accessory Muscle Use, No Respiratory Distress Cardiovascular: Regular Rate, Rhythm Gastrointestinal: distended (less), tenderness (minimal diffusely), hernia (incisional below umbilicus) Extremity: Normal Capillary Refill, Normal Inspection, Normal Range of Motion, Non Tender, No Calf Tenderness, No Pedal Edema, Other (left lateral foot with growth about 1/4 size) Neurologic/Psychiatric: Alert, Oriented x3, No Motor/Sensory Deficits, Normal Mood/Affect Skin: Normal Color, Warm/Dry Lymphatic: No Adenopathy Results Lab Laboratory Tests 08/25/18 05:07: White Blood Count 6.6, Red Blood Count 3.43L, Hemoglobin 10.6L, Hematocrit 34L, Mean Corpuscular Volume 99, Mean Corpuscular Hemoglobin 31, Mean Corpuscular Hemoglobin Concent 31L, Red Cell Distribution Width 13.6, Platelet Count 197, Mean Platelet Volume 9.8, Neutrophils (%) (Auto) 67, Lymphocytes (%) (Auto) 18, Monocytes (%) (Auto) 12, Eosinophils (%) (Auto) 3, Basophils (%) (Auto) 1, Neutrophils # (Auto) 4.4, Lymphocytes # (Auto) 1.2, Monocytes # (Auto) 0.8, Eosinophils # (Auto) 0.2, Basophils # (Auto) 0.0, Sodium Level 136, Potassium Level 3.6, Chloride Level 104, Carbon Dioxide Level 21, Anion Gap 11, Blood Urea Nitrogen 21H, Creatinine 0.68, Estimat Glomerular Filtration Rate > 60, BUN/Creatinine Ratio 31, Glucose Level 98, Calcium Level 8.8, Corrected Calcium 9.2, Total Bilirubin 0.3, Aspartate Amino Transf (AST/SGOT) 30, Alanine Aminotransferase (ALT/SGPT) 24, Alkaline Phosphatase 65, Total Protein 6.4, Albumin 3.5 Assessment/Plan Assessment/Plan Assessment/Plan partial small bowel obstruction incisional hernia left foot growth iv hydration hernia reducible tolerating diet smalll bowel follow through reviewed and no evidence of obstruction having bm and passing flatus okay to dc home from surgical standpoint likely need further debridement on foot later date. Clinical Quality Measures DVT/VTE Risk/Contraindication: Risk Factor Score Per Nursin RFS Level Per Nursing on Admit: 4+=Very High RONALDO CHONG DO Aug 25, 2018 16:40
== END 2018-08-25 14:57 | disposition home health service (06) | DRG 389 ==
LOC: EDUNIT# 15:45 → ER FS 15:48 → 4TH 18:10
PROVIDERS: ADMIT Internal Medicine; ATTEND Internal Medicine
PROC: 0D9670Z Drainage of Stomach with Drainage Device, Via Natural or Artificial Opening (ICD-10-PCS; principal; 2018-08-22)
DX: K56.7 Ileus, unspecified (principal); G61.0 Guillain-Barre syndrome; L97.329 Non-pressure chronic ulcer of left ankle with unspecified severity; E78.00 Pure hypercholesterolemia, unspecified; I10 Essential (primary) hypertension; E11.40 Type 2 diabetes mellitus with diabetic neuropathy, unspecified; F41.9 Anxiety disorder, unspecified; G47.30 Sleep apnea, unspecified; G25.81 Restless legs syndrome; K43.2 Incisional hernia without obstruction or gangrene; C50.919 Malignant neoplasm of unspecified site of unspecified female breast; R04.0 Epistaxis; Z79.84 Long term (current) use of oral hypoglycemic drugs; Z86.711 Personal history of pulmonary embolism; Z86.718 Personal history of other venous thrombosis and embolism; Z86.69 Personal history of other diseases of the nervous system and sense organs; Z92.3 Personal history of irradiation; Z92.21 Personal history of antineoplastic chemotherapy; Z99.81 Dependence on supplemental oxygen; Z79.01 Long term (current) use of anticoagulants
CPT/HCPCS: 36415; 71045; 74022; 74177; 74250; 80053; 85025; 96374

== ENCOUNTER 2018-09-04 00:55 | Inpatient (IN) | payer MEDICARE, MEDICAID ==
[~2018-09-04] VITALS: Ht 149.9 cm; Wt 68.2 kg
[2018-09-04] MEDS ORDERED: NS IV 500 ML 500 ML IV SCH (01:30)
--- NOTE | 2018-09-04 01:42 | ED General ---
General Chief Complaint: Abdominal/GI Problems Stated Complaint: WEAKNESS Nursing Triage Note: PT COMPLAINING OF CONSTIPATION, PT WAS HOSPITALIZED RECENTLY FOR A BOWEL OBSTRUCTION Nursing Sepsis Screen: No Definite Risk History of Present Illness Date Seen by Provider: Sep 04, 2018 Time Seen by Provider: 01:15 Initial Comments Pt is a poor historian. She is unable to provide much history. She is accompanied by a VENEER PRESS OPERATOR who provides the majority of the history. This is a 77 y/o f who presents to the ED for evaluation. Pt is a long-term NH pt. Recent hospitalization for prolonged Ileus d/c on 08/25. Maintained liquid diet for approx 7 days s/p hospitalization. Caregiver at bedside is unsure of last BM. But contrary to triage note pt and caregiver do not have any concerns about constipation. Caregiver reports that while ambulating to the restroom pt became suddenly tremulous. She was assisted to the floor. No injury. No head trauma. No LOC. At neurological baseline at this time. No BS checked by EMS. Family requested that pt be evaluated. Pt has no complaint. Intermittent bruising to extremities that caregiver reports as old. Allergies and Home Medications Allergies Coded Allergies: No Known Drug Allergies (Unverified , 06/11/18) Home Medications Allopurinol 100 Mg Tablet, 100 MG PO DAILY, (Reported) Alprazolam 0.5 Mg Tablet, 0.5 MG PO BID, (Reported) Apixaban 5 Mg Tablet, 5 MG PO BID, (Reported) Aspirin 81 Mg Tablet.dr, 81 MG PO DAILY, (Reported) Calcium Carbonate 600 Mg Tablet, 600 MG PO DAILY, (Reported) Fluticasone Propionate 16 Gm [place].susp, 2 SPRAYS NS DAILY PRN for ALLERGIES, (Reported) Gabapentin 600 Mg Tablet, 600 MG PO QID, (Reported) Gemfibrozil 600 Mg Tablet, 600 MG PO BID, (Reported) Glipizide 5 Mg Tablet, 5 MG PO BID, (Reported) Mirabegron 25 Mg Tab.er.24h, 25 MG PO DAILY, (Reported) Montelukast Sodium 10 Mg Tablet, 10 MG PO HS, (Reported) Multivitamin 1 Each Tablet, 1 TAB PO DAILY, (Reported) Omeprazole 20 Mg Capsule.dr, 20 MG PO DAILY, (Reported) Primidone 50 Mg Tablet, 100 MG PO BID, (Reported) TAKES 2 (50MG) TABLETS Sertraline HCl 50 Mg Tablet, 50 MG PO DAILY, (Reported) Tramadol HCl 50 Mg Tablet, 50 MG PO Q6H PRN for PAIN-MODERATE Prescribed by: BRIANNA HERNANDEZ on 06/16/18 1031 Valsartan 160 Mg Tablet, 80 MG PO DAILY, (Reported) TAKES 1/2 (160MG) TABLET Patient Home Medication List Home Medication List Reviewed: Yes Review of Systems Review of Systems Constitutional: No chills, No fever All Other Systems Reviewed Negative Unless Noted: No (Unable to obtain 2/2 dementia/cognitive delay) Past Nfpyegg-Ytabqg-Znwcdq Hx Patient Social History Alcohol Use: Denies Use Recreational Drug Use: No Type Used: Cigarettes 2nd Hand Smoke Exposure: No Recent Foreign Travel: No Contact w/Someone Who Travel: No Recent Infectious Disease Expo: No Recent Hopitalizations: Yes Physical Abuse: No Sexual Abuse: No Mistreated: No Seasonal Allergies Seasonal Allergies: No Past Medical History Surgeries: Yes (CATARACTS) Abdominal, Bowel Surgery, Breast, Gallbladder Respiratory: Yes Pulmonary Embolism, Sleep Apnea Cardiac: Yes High Cholesterol, Hypertension Neurological: Yes (GUILLAIN-BARRE) Neuropathy HOSPITAL NURSE LIAISON History: Menopausal Sexually Transmitted Disease: Yes (GONORRHEA) Genitourinary: Yes (INCONTINENCE) Gastrointestinal: Yes Gastrointestinal Bleed Musculoskeletal: Yes (RESTLESS LEGS; GAIT DISTURBANCE) Arthritis Endocrine: Yes Diabetes, Non-Insulin dep HEENT: Yes (NOSEBLEEDS; PERTUSSIS; ) Cataract Loss of Vision: Bilateral Hearing Impairment: Hard of Hearing, Bilateral Hearing Aide Cancer: Yes Breast Did You Recieve Any Treatments: Yes What Type of Treatment Did You: Chemotherapy, Radiation, Surgical Intervention Psychosocial: Yes Anxiety Integumentary: Yes (CHICKEN POX, ULCER OF LEFT ANKLE) Blood Disorders: No Family Medical History Heart Disease, Diabetes, Hypertension, Other Conditions/Hx Physical Exam Vital Signs Vital Signs - First Documented 09/04/18 01:11 Temp 98.2 Pulse 79 Resp 18 B/P (MAP) 129/77 (94) Pulse Ox 99 O2 Flow Rate 2.00 Capillary Refill : Less Than 3 Seconds Height, Weight, BMI Height: 4'11.00" Weight: 180lbs. 12.8oz. 81.512083pp; 32.1 BMI Method:Estimated General Appearance: No Apparent Distress, WD/WN, Other (Frail, appears stated age. ) HEENT: PERRL/EOMI, Other (Dry oral mucosa) Neck: Full Range of Motion, Non Tender Respiratory: Chest Non Tender, Lungs Clear, Normal Breath Sounds Cardiovascular: Regular Rate, Rhythm, No Edema, Normal Peripheral Pulses Gastrointestinal: Normal Bowel Sounds, Non Tender, Soft; No Distended Extremity: Normal Capillary Refill, No Pedal Edema, Other (Generalized weakness) Neurologic/Psychiatric: Alert, Other (oriented to self/place--Generalized weakness) Skin: Normal Color, Other (intermittent ecchymosis to all 4 extremities ) Progress/Results/Core Measures Suspected Sepsis Recent Fever Within 48 Hours: No Infection Criteria Present: None New/Unexplained Altered Menta: No Sepsis Screen: No Definite Risk SIRS Temperature:98.2 Pulse: 79 Respiratory Rate: 18 Laboratory Tests 09/04/18 02:00: White Blood Count 8.7 Blood Pressure 129 /77 Mean: 94 Laboratory Tests 09/04/18 02:00: Platelet Count 223 Results/Orders Lab Results Laboratory Tests Test 09/04/18 01:21 09/04/18 01:56 09/04/18 02:00 Range/Units Glucometer 79 70-110 MG/DL Urine Color YELLOW Urine Clarity CLEAR Urine pH 6.5 5-9 Urine Specific [place] <1.005 1.016-1.022 Urine Protein NEGATIVE NEGATIVE Urine Glucose (UA) NEGATIVE NEGATIVE Urine Ketones NEGATIVE NEGATIVE Urine Nitrite NEGATIVE NEGATIVE Urine Bilirubin NEGATIVE NEGATIVE Urine Urobilinogen 0.2 NORMAL MG/DL Urine Leukocyte Esterase 3+ H NEGATIVE Urine RBC (Auto) TRACE H NEGATIVE Urine RBC 0-2 /HPF Urine WBC >100 H /HPF Urine Crystals NONE /LPF Urine Bacteria MODERATE H /HPF Urine Casts NONE /LPF Urine Mucus NEGATIVE /LPF Urine Culture Indicated YES White Blood Count 8.7 4.3-11.0 10^3/uL Red Blood Count 3.37 L 4.35-5.85 10^6/uL Hemoglobin 10.5 L 11.5-16.0 G/DL Hematocrit 32 L 35-52 % Mean Corpuscular Volume 96 80-99 FL Mean Corpuscular Hemoglobin 31 25-34 PG Mean Corpuscular Hemoglobin Concent 33 32-36 G/DL Red Cell Distribution Width 13.3 10.0-14.5 % Platelet Count 223 130-400 10^3/uL Mean Platelet Volume 8.9 7.4-10.4 FL Neutrophils (%) (Auto) 74 42-75 % Lymphocytes (%) (Auto) 10 L 12-44 % Monocytes (%) (Auto) 10 0-12 % Eosinophils (%) (Auto) 3 0-10 % Basophils (%) (Auto) 1 0-10 % Neutrophils # (Auto) 6.5 1.8-7.8 X 10^3 Lymphocytes # (Auto) 0.8 L 1.0-4.0 X 10^3 Monocytes # (Auto) 0.9 0.0-1.0 X 10^3 Eosinophils # (Auto) 0.2 0.0-0.3 10^3/uL Basophils # (Auto) 0.1 0.0-0.1 10^3/uL My Orders Orders - COLTON NAPIER DO Cbc And Manual Diff (09/04/18 01:19) Basic Metabolic Panel (09/04/18 01:19) Ua Culture If Indicated (09/04/18 01:19) Ns Iv 500 Ml (Sodium Chloride 0.9%) (09/04/18 01:30) Urine Culture (09/04/18 01:56) Blood Culture (09/04/18 02:24) Blood Culture (09/04/18 02:24) Ceftriaxone For Iv Use (Rocephin For I (09/04/18 02:30) Vital Signs/I&O 09/04/18 01:11 Temp 98.2 Pulse 79 Resp 18 B/P (MAP) 129/77 (94) Pulse Ox 99 O2 Flow Rate 2.00 Capillary Refill : Less Than 3 Seconds Blood Pressure Mean: 94 Progress Note : Time: 02:30 Progress Note Pt with significant UTI. Will admit for continued management. 2 sets of blood cultures drawn. Ceftriaxone started. Discussed with Dr. Roth, retail services professional Hospitalist who is agreeable to admission. Pt has been hemodynamically stable while in the ED. No family at bedside to update. Departure Communication (Admissions) Time/Spoke to Admitting Phy: 02:[address] Roth who is agreeable to admission. Time/Spoke to Consulting Phy: 02:40 Impression Primary Impression: Urinary tract infection Additional Impressions: Weakness Dehydration Disposition: ADMITTED INPATIENT Condition: Stable Admissions Decision to Admit Reason: Admit from ER (General) Decision to Admit/Date: Sep 04, 2018 Time/Decision to Admit Time: 02:40 Departure-Patient Inst. Referrals: ERENDIRA KEANE MD (PCP/Family) Primary Care Physician COLTON NAPIER DO Sep 04, 2018 01:42
[2018-09-04 02:18] LABS: CLARITY,URINE CLEAR; COLOR,URINE YELLOW; GLUCOSE, URINE (UA) NEGATIVE (NEGATIVE); PH,URINE 6.5 (5-9); PROTEIN,URINE NEGATIVE (NEGATIVE)
[2018-09-04 02:19] LABS: HEMATOCRIT 32 % (35-52); HEMOGLOBIN 10.5 G/DL (11.5-16.0); MEAN CORPUSCULAR HEMOGLOBIN 31 PG (25-34); WHITE BLOOD COUNT 8.7 10^3/uL (4.3-11.0)
[2018-09-04 02:19] LABS: BACTERIA,URINE MODERATE /HPF; BILIRUBIN,URINE NEGATIVE (NEGATIVE); KETONES,URINE NEGATIVE (NEGATIVE); LEUKOCYTE ESTERASE ,URINE 3+ (NEGATIVE); NITRITE,URINE NEGATIVE (NEGATIVE); RBC,URINE 0-2 /HPF; UROBILINOGEN,URINE 0.2 MG/DL (NORMAL); WBC,URINE >100 /HPF
[2018-09-04 02:20] LABS: BASOPHILS # (AUTO) 0.1 10^3/uL (0.0-0.1); BASOPHILS % (AUTO) 1 % (0-10); EOSINOPHILS # (AUTO) 0.2 10^3/uL (0.0-0.3); EOSINOPHILS % (AUTO) 3 % (0-10); LYMPHOCYTES # (AUTO) 0.8 X 10^3 (1.0-4.0); LYMPHOCYTES % (AUTO) 10 % (12-44); MEAN CORPUSCULAR HGB CONC 33 G/DL (32-36); MEAN CORPUSCULAR VOLUME 96 FL (80-99); MEAN PLATELET VOLUME 8.9 FL (7.4-10.4); MONOCYTES # (AUTO) 0.9 X 10^3 (0.0-1.0); MONOCYTES % (AUTO) 10 % (0-12); NEUTROPHILS # (AUTO) 6.5 X 10^3 (1.8-7.8); NEUTROPHILS % (AUTO) 74 % (42-75); PLATELET COUNT 223 10^3/uL (130-400); RED CELL DISTRIBUTION WIDTH 13.3 % (10.0-14.5)
[2018-09-04] MEDS ORDERED: cefTRIAXone FOR IV USE 1,000 MG in WATER (STERILE) FOR INJECTION 10 ML IV ONE (02:30)
[2018-09-04] MEDS ORDERED: WATER (STERILE) FOR INJECTION 10 ML ONE (02:37)
[2018-09-04] MEDS ORDERED: cefTRIAXone 1,000 MG IV (ROCEPHIN) VIAL ONE (02:37)
--- OUTSIDE RECORDS SUMMARY | 2018-09-04 02:41 | XMS REPORT | Encounter Summary ---
Author Author [facility] Organization [facility] Address Unknown Phone Unavailable Care Team Providers Care Yarn Skeins Examiner Name Role Phone Parvez Rosario MD Unavailable No Pcp, Na PCP Unavailable Reason for Visit * Reason Comments Appointment Question Encounter Details Care Team Description Date Type Department No Pcp, Na Appointment Question 05/29/2018 [address] [address] Social History Date Tobacco Use [...] and how to care for callul itis. [facility] 1245 *Pt. has not established care with [facility] yet. * Telephone Encounter - Radha Elliott - 05/29/2018 9:52 AM CDT Jazzy wallace pt. was seen in the ED on Tuesday and they informed her to schedule an appointment with [facility]. pt. has a provider in [place] and was wonder ing if that is okay to do instead. M [id number] documented in this encounter Plan of Treatment Not on filedocumented as of this encounter Visit Diagnoses Not on filedocumented in this encounter
--- OUTSIDE RECORDS SUMMARY | 2018-09-04 02:41 | XMS REPORT | Clinical Summary ---
Author Author [facility] Organization [facility] Address Unknown Phone Unavailable Care Team Providers Care Sales Representative Printing Supplies Name Role Phone Parvez Rosario MD Unavailable No Pcp, Na PCP Unavailable Source Comments Some departments are not documenting in the electronic medical record. If you d o not see the information that you expected, contact Release of Information in [facility] [employer] Information Management department at [phone] for further assistan ce in locating additional records.[facility] Allergies No Known Allergies Medications [...] of 2 - PCV13) INFLUENZA VACCINE 11/07/2018 Results Not on filefrom Last 3 Months Insurance Type Payer Benefit Subscriber ID Effective Phone Address Plan / Dates Group Medicare MEDICARE MEDICARE xxxxxxxxxxx 1972-P PART A AND resent B Medicaid [employer] [place] [employer] xxxxxxxxxxx 2009- STATE Present HEALTH Advance Directives Patient Hall Monitor Explanation Type Date Recorded Advance 05/26/2018 4:27 PM Directive/DPOA
--- OUTSIDE RECORDS SUMMARY | 2018-09-04 02:42 | XMS REPORT | Encounter Summary ---
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 [...] Disposition Discharge Dpt [facility], Family Medicine [address] [facility] [id number] Attn [facility] [address] Schedule an appointment as soon as possible [...] 1.010 1.003 - 1.035 [facility] [place] POC Urine PH POC 5.5 5.0 - [...] City/State/Zipcode Phone Number [facility] [address] [place] [address] * US DOPPLER VENOUS W EXTRM LEFT [...] (L) >60 mL/min [facility] Comment: [place] The eGFR is not validated for use in drug dosing adjustments.Continue to use estimated creatinine clearance per dosing reference text.Please contact the Clinical Pharmacist for questions. eGFR 59 (L) >60 mL/min [facility] [place] Comment: The eGFR is not validated for use in drug dosing adjustments.Continue to use estimated creatinine clearance per dosing reference text.Please contact the Clinical Pharmacist for questions. Specimen Blood Performing Organization Address City/[facility]/Zipcode Phone Number [facility] [address] [place] [address] * SED RATE (05/26/2018 4:04 PM CDT) Sed Rate -ESR 83 (H) 0 - 30 MM/HR MAIN LAB Specimen Blood Performing Organization Address City/[facility]/Zipcode Phone Number [facility] [address] [place] [address] * C REACTIVE PROTEIN (CRP) (05/26/2018 4:04 PM CDT) C-Reactive 2.28 (H) <1.0 MG/DL MAIN LAB Protein Specimen Blood Performing Organization Address City/[facility]/Zipcode Phone Number [facility] [address] [place] [address] * CBC AND DIFF (05/26/2018 4:04 PM [...] City/State/Zipcode Phone Number MAIN LAB [address] [place] [address] * ECG-SCAN (05/26/2018 12:00 AM CDT) Narrative [...]
--- OUTSIDE RECORDS SUMMARY | 2018-09-04 02:46 | XMS REPORT | Continuity of Care Document ---
Author Organization Unknown Address Unknown Phone Unavailable Allergies Active Description Code Type Severity Reaction Onset Reported/Identified Relationship to Patient Clinical Status Yes NO KNOWN DRUG ALLERGIES UNKNOWN UNKNOWN Yes No Known Drug Allergies [id number] Drug Allergy Unknown N/A 06/11/2018 Medications There is no data. Problems Date Dx Coded Attending Type Code Diagnosis Diagnosed By 12/20/2013 DANNY PADILLA N Ot 356.9 12/20/2013 RANDY, BOBAN N Ot 715.89 12/20/2013 RANDY, DANNY N Ot V10.3 12/20/2013 RANDY, DANNY N Ot V58.66 12/20/2013 RANDY, BOBKALLI N Ot V58.69 12/20/2013 RANDY, BOBKALLI N Ot V67.1 01/02/2014 RANDY, BOBAN N Ot 356.9 01/02/2014 RANDY, BOBAN N Ot 715.89 01/02/2014 RANDY, BOBAN N Ot V10.3 01/02/2014 RANDY, BOBAN N Ot V58.66 01/02/2014 RANDY, BOBAN N Ot V58.69 01/02/2014 RANDY, BOBAN N Ot V67.1 12/24/2014 RANDYDANNY N Ot E08.40 12/24/2014 RANDY, DANNY N Ot G62.9 12/24/2014 RANDY, BOBAN N [...] 12/02/2015 DANNY PADILLA N Ot Z79.899 OTHER FPC (CURRENT) DRUG THERAPY 12/02/2015 DANNY PADILLA N [...] 12/08/2015 DANNY PADILLA N Ot Z79.899 OTHER [employer]ODUCTS I ASSEMBLER (CURRENT) DRUG THERAPY 12/08/2015 DANNY PADILLA N [...] 12/23/2015 DANNY PADILLA N Ot Z79.899 OTHER FPC (CURRENT) DRUG THERAPY 12/23/2015 DANNY PADILLA N [...] 12/31/2015 DANNY PADILLA N Ot Z79.899 OTHER FPC (CURRENT) DRUG THERAPY 12/31/2015 DANNY PADILLA N Ot Z85.3 PERSONAL HISTORY OF MALIGNANT NEOPLASM O 12/31/2015 DANNY PADILLA N Ot Z92.3 PERSONAL HISTORY OF IRRADIATION 09/17/2016 Carlos Melchor MD L90.0 Lichen sclerosus et atrophicus 12/10/2016 DANYN PADILLA Kodi Ot E08.40 DIABETES DUE TO UNDERLYING CONDITION W D 12/10/2016 DANNY PADILLA Kodi Ot G62.9 POLYNEUROPATHY, UNSPECIFIED 12/10/2016 DANNY PADILLA Kodi Ot Z08 ENCNTR FOR FOLLOW-UP EXAM AFTER TRTMT FO 12/10/2016 DANNY PADILLA Kodi Ot Z79.899 OTHER SMALL PRODUCTS I ASSEMBLER (CURRENT) DRUG THERAPY 12/10/2016 DANNY PADILLA Kodi [...] V67.1 RADIOTHERAPY FOLLOW- UP 01/23/2017 DANNY PADILLA Kodi Ot 356.9 IDIO PERIPH NEURPTHY NOS 01/23/2017 DANNY PADILLA N Ot 715.89 OSTEOARTHROSIS-MULT SITE 01/23/2017 DANNY PADILLA N Ot V10.3 HX OF BREAST MALIGNANCY 01/23/2017 DANNY PADILLA Kodi Ot V58.66 LONG-TERM (CURRENT) USE OF ASPIRIN 01/23/2017 RANDYREGINALDOKALLI Kodi Ot V58.69 OTH MED,LT,CURRENT USE 01/23/2017 DANNY PADILLA N Ot V67.1 RADIOTHERAPY FOLLOW-UP 01/23/2017 DANNY PADILLA Kodi Ot 356.9 IDIO PERIPH NEURPTHY NOS 01/23/2017 DANNY PADILLA N Ot 715.89 OSTEOARTHROSIS-MULT SITE 01/23/2017 DANNY PADILLA Kodi Ot V10.3 HX OF BREAST MALIGNANCY 01/23/2017 RANDY, REGINALDOKALLI N Ot V58.66 LONG-TERM (CURRENT) USE OF ASPIRIN 01/23/2017 RANDYDANNY N Ot V58.69 OTH MED,LT,CURRENT USE 01/23/2017 DANNY PADILLA Ot V67.1 RADIOTHERAPY FOLLOW-UP 01/23/2017 DANNY PADILLA N Ot E08.40 DIABETES DUE TO UNDERLYING CONDITION W D 01/23/2017 DANNY PADILLA N Ot G62.9 POLYNEUROPATHY, UNSPECIFIED 01/23/2017 DANNY PADILLA N Ot Z08 ENCNTR FOR FOLLOW-UP EXAM AFTER TRTMT FO 01/23/2017 DANNY PADILLA N Ot Z79.899 OTHER SMALL PRODUCTS I ASSEMBLER (CURRENT) DRUG THERAPY 01/23/2017 DANNY PADILLA N [...] 01/23/2017 DANNY PADILLA N Ot Z79.899 OTHER FPC (CURRENT) DRUG THERAPY 01/23/2017 DANNY PADILLA N [...] 01/23/2017 DANNY PADILLA N Ot Z79.899 OTHER FPC (CURRENT) DRUG THERAPY 01/23/2017 DANNY PADILLA N Ot Z85.3 PERSONAL HISTORY OF MALIGNANT NEOPLASM O 01/23/2017 RANDY REGINALDOKALLI N Ot Z92.3 PERSONAL HISTORY OF IRRADIATION 01/24/2017 DANISH CARRILLO, MARYANN Spicer Ot E11.9 TYPE 2 DIABETES MELLITUS WITHOUT COMPLIC 01/24/2017 DANISH CARRILLO, MARYANN Spicer Ot E78.00 PURE HYPERCHOLESTEROLEMIA, UNSPECIFIED 01/24/2017 DANISH CARRILLOMARYANN Ot G25.81 RESTLESS LEGS SYNDROME 01/24/2017 MARYANN [...] EPISTAXIS 01/24/2017 MARYANN PENG MD Ot Z79.82 SMALL PRODUCTS I ASSEMBLER (CURRENT) USE OF ASPIRIN 01/26/2017 MARYANN PENG [...] EPISTAXIS 01/26/2017 MARYANN PENG MD Ot Z79.82 SMALL PRODUCTS I ASSEMBLER (CURRENT) USE OF ASPIRIN 02/02/2017 DANNY PADILLA Ot E08.40 DIABETES DUE TO UNDERLYING CONDITION W D 02/02/2017 DANNY PADILLA Ot G62.9 POLYNEUROPATHY, UNSPECIFIED 02/02/2017 DANNY PADILLA Ot Z08 ENCNTR FOR FOLLOW-UP EXAM AFTER TRTMT FO 02/02/2017 DANNY PADILLA Ot Z79.899 OTHER FPC (CURRENT) DRUG THERAPY 02/02/2017 DANNY PADILLA Ot Z85.3 PERSONAL HISTORY OF MALIGNANT NEOPLASM O 02/02/2017 DANNY PADILLA Ot Z92.3 PERSONAL HISTORY OF IRRADIATION 02/04/2017 RANDY, BOBAN N Ot E08.40 DIABETES DUE TO UNDERLYING CONDITION W D 02/04/2017 RANDY REGINALDOKALLI N Ot G62.9 POLYNEUROPATHY, UNSPECIFIED 02/04/2017 RANDY DANNY N Ot Z08 ENCNTR FOR FOLLOW-UP EXAM AFTER TRTMT FO 02/04/2017 RANDY DANNY N Ot Z79.899 OTHER FPC (CURRENT) DRUG THERAPY 02/04/2017 RANDY, DANNY N Ot Z85.3 PERSONAL HISTORY OF MALIGNANT NEOPLASM O 02/04/2017 RANDY DANNY N Ot Z92.3 PERSONAL HISTORY OF IRRADIATION 02/23/2017 Ruiz CARRILLO, Carlos Gamez R15.9 Fecal incontinence 03/09/2017 RANDY, DANNY N Ot E08.40 DIABETES DUE TO UNDERLYING CONDITION W D 03/09/2017 RANDY REGINALDOKALLI N Ot G62.9 POLYNEUROPATHY, UNSPECIFIED 03/09/2017 RANDY, DANNY N Ot Z08 ENCNTR FOR FOLLOW-UP EXAM AFTER TRTMT FO 03/09/2017 RANDY DANNY N Ot Z79.899 OTHER SMALL PRODUCTS I ASSEMBLER (CURRENT) DRUG THERAPY 03/09/2017 RANDY, DANNY N Ot Z85.3 PERSONAL HISTORY OF MALIGNANT NEOPLASM O 03/09/2017 RANDYDANNY N Ot Z92.3 PERSONAL HISTORY OF IRRADIATION 03/10/2017 RANDY, DANNY N Ot E08.40 DIABETES DUE TO UNDERLYING CONDITION W D 03/10/2017 RANDY REGINALDOKALLI N Ot G62.9 POLYNEUROPATHY, UNSPECIFIED 03/10/2017 RANDYDANNY N Ot Z08 ENCNTR FOR FOLLOW-UP EXAM AFTER TRTMT FO 03/10/2017 RANDYDANNY N Ot Z79.899 OTHER SMALL PRODUCTS I ASSEMBLER (CURRENT) DRUG THERAPY 03/10/2017 RANDYDANNY N Ot Z85.3 PERSONAL HISTORY OF MALIGNANT NEOPLASM O 03/10/2017 DANNY PADILLA N Ot Z92.3 PERSONAL HISTORY OF IRRADIATION 03/07/2018 DANNY PADILLA N Ot 356.9 IDIO PERIPH NEURPTHY NOS 03/07/2018 DANNY PADILLA Ot 715.89 OSTEOARTHROSIS-MULT SITE 03/07/2018 DANNY PADILLA Ot V10.3 HX OF BREAST MALIGNANCY 03/07/2018 DANNY PADILLA Ot V58.66 LONG-TERM (CURRENT) USE OF ASPIRIN 03/07/2018 DANNY PADILLA Kodi Ot V58.69 OTH MED,LT,CURRENT USE 03/07/2018 RANDY DANNY Mariee Ot V67.1 RADIOTHERAPY FOLLOW-UP 03/07/2018 DANNY PADILLA Kodi Ot 356.9 IDIO PERIPH NEURPTHY NOS 03/07/2018 RANDY DANNY Mariee Ot 715.89 OSTEOARTHROSIS-MULT SITE 03/07/2018 RANDY DANNY Mariee Ot V10.3 HX OF BREAST MALIGNANCY 03/07/2018 RANDY DANNY Mariee Ot V58.66 LONG-TERM (CURRENT) USE OF ASPIRIN 03/07/2018 REGINALDO PADILLAKALLI Mariee Ot V58.69 OTH MED,LT,CURRENT USE 03/07/2018 RANDY DANNY Mariee Ot V67.1 RADIOTHERAPY FOLLOW-UP 03/07/2018 RANDY DANNY Mariee Ot E08.40 DIABETES DUE TO UNDERLYING CONDITION W D 03/07/2018 RANDY DANNY Mariee Ot G62.9 POLYNEUROPATHY, UNSPECIFIED 03/07/2018 RANDY DANNY N Ot Z08 ENCNTR FOR FOLLOW-UP EXAM AFTER TRTMT FO 03/07/2018 RANDY DANNY N Ot Z79.899 OTHER SMALL PRODUCTS I ASSEMBLER (CURRENT) DRUG THERAPY 03/07/2018 RANDY DANNY N Ot Z85.3 PERSONAL HISTORY OF MALIGNANT NEOPLASM O 03/07/2018 RANDYDANNY N Ot Z92.3 PERSONAL HISTORY OF IRRADIATION 03/07/2018 RANDYDANNY Ot E08.40 DIABETES DUE TO UNDERLYING CONDITION W D 03/07/2018 RANDY DANNY Mariee Ot G62.9 POLYNEUROPATHY, UNSPECIFIED 03/07/2018 RANDY DANNY N Ot Z08 ENCNTR FOR FOLLOW-UP EXAM AFTER TRTMT FO 03/07/2018 RANDY DANNY N Ot Z79.899 OTHER SMALL PRODUCTS I ASSEMBLER (CURRENT) DRUG THERAPY 03/07/2018 RANDY DANNY N [...] 03/07/2018 DANNY PADILLA Kodi Ot Z79.899 OTHER SMALL PRODUCTS I ASSEMBLER (CURRENT) DRUG THERAPY 03/07/2018 DANNY PADILLA Kodi Ot Z85.3 PERSONAL HISTORY OF MALIGNANT NEOPLASM O 03/07/2018 DANNY PADILLA Kodi Ot Z92.3 PERSONAL HISTORY OF IRRADIATION 03/08/2018 DANNY PADILLA Kodi Ot 356.9 IDIO PERIPH NEURPTHY NOS 03/08/2018 DANNY PADILLA N Ot 715.89 OSTEOARTHROSIS-MULT SITE 03/08/2018 DANNY PADILLA Kodi Ot V10.3 HX OF BREAST MALIGNANCY 03/08/2018 DANNY PADILLA N Ot V58.66 LONG-TERM (CURRENT) USE OF ASPIRIN 03/08/2018 DANNY PADILLA N Ot V58.69 OTH MED,LT,CURRENT USE 03/08/2018 DANNY PADILLA Kodi Ot V67.1 RADIOTHERAPY FOLLOW-UP 03/08/2018 DANNY PADILLA Kodi Ot 356.9 IDIO PERIPH NEURPTHY NOS 03/08/2018 DANNY PADILLA N Ot 715.89 OSTEOARTHROSIS-MULT SITE 03/08/2018 DANNY PADILLA Kodi Ot V10.3 HX OF BREAST MALIGNANCY 03/08/2018 DANNY PADILLA N Ot V58.66 LONG-TERM (CURRENT) USE OF ASPIRIN 03/08/2018 RANDY REGINALDOKALLI Kodi Ot V58.69 OTH MED,LT,CURRENT USE 03/08/2018 DANNY PADILLA N Ot V67.1 RADIOTHERAPY FOLLOW-UP 03/08/2018 DANNY PADILLA Kodi Ot E08.40 DIABETES DUE TO UNDERLYING CONDITION W D 03/08/2018 DANNY PADILLA Kodi Ot G62.9 POLYNEUROPATHY, UNSPECIFIED 03/08/2018 DANNY PADILLA Kodi Ot Z08 ENCNTR FOR FOLLOW-UP EXAM AFTER TRTMT FO 03/08/2018 DANNY PADILLA Kodi Ot Z79.899 OTHER FPC (CURRENT) DRUG THERAPY 03/08/2018 RANDY REGINALDOKALLI Kodi Ot Z85.3 PERSONAL HISTORY OF MALIGNANT NEOPLASM O 03/08/2018 DANNY PADILLA Ot Z92.3 PERSONAL HISTORY OF IRRADIATION 03/08/2018 DANNY PADILLA Ot E08.40 DIABETES DUE TO UNDERLYING CONDITION W D 03/08/2018 DANNY PADILLA Ot G62.9 POLYNEUROPATHY, UNSPECIFIED 03/08/2018 DANNY PADILLA Ot Z08 ENCNTR FOR FOLLOW-UP EXAM AFTER TRTMT FO 03/08/2018 DANNY PADILLA N Ot Z79.899 OTHER FPC (CURRENT) DRUG THERAPY 03/08/2018 DANNY PADILLA N Ot Z85.3 PERSONAL HISTORY OF MALIGNANT NEOPLASM O 03/08/2018 DANNY PADILLA N Ot Z92.3 PERSONAL HISTORY OF IRRADIATION 03/08/2018 DANNY PADILLA Ot E08.40 DIABETES DUE TO UNDERLYING CONDITION W D 03/08/2018 DANNY PADILLA Ot G62.9 POLYNEUROPATHY, UNSPECIFIED 03/08/2018 DANNY PADILLA Ot Z08 ENCNTR FOR FOLLOW-UP EXAM AFTER TRTMT FO 03/08/2018 DANNY PADILLA Ot Z79.899 OTHER SMALL [employer]ODUCTS I ASSEMBLER (CURRENT) DRUG THERAPY 03/08/2018 DANNY PADILLA N [...] LOPEZ MD, 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 05/07/2018 ORN LOPEZ MD Ot I10 ESSENTIAL (PRIMARY) HYPERTENSION 05/07/2018 RON LOPEZ MD, Ot K59.00 CONSTIPATION, UNSPECIFIED 05/07/2018 RON LOPEZ MD, Ot N39.0 URINARY TRACT INFECTION, SITE NOT SPECIF 05/07/2018 RON LOPEZ MD, Ot N63.10 UNSPECIFIED LUMP IN THE RIGHT BREAST, UN 05/07/2018 RON LOPEZ MD, Ot R10.31 RIGHT LOWER QUADRANT PAIN 05/07/2018 RON LOPEZ MD Ot Z79.4 FPC (CURRENT) USE OF INSULIN 05/07/2018 RON LOPEZ MD Ot Z79.51 FPC (CURRENT) USE OF INHALED STERO 05/07/2018 RON LOPEZ MD, Ot Z79.82 FPC (CURRENT) USE OF ASPIRIN 05/07/2018 RON LOPEZ [...] MELLITUS WITH DIABETIC N 05/11/2018 RON LOPEZ MD Ot E78.00 PURE HYPERCHOLESTEROLEMIA, UNSPECIFIED 05/11/2018 RON LOPEZ MD, Ot F41.9 ANXIETY DISORDER, UNSPECIFIED 05/11/2018 RON LOPEZ MD, Ot G25.81 RESTLESS LEGS SYNDROME 05/11/2018 RON LOPEZ MD, Ot G47.30 SLEEP APNEA, UNSPECIFIED 05/11/2018 JESSICA MD, RON D 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 05/11/2018 RON LOPEZ MD, Ot I10 ESSENTIAL (PRIMARY) HYPERTENSION 05/11/2018 RON LOPEZ MD, Ot K59.00 CONSTIPATION, UNSPECIFIED 05/11/2018 RON LOPEZ MD, Ot N39.0 URINARY TRACT INFECTION, SITE NOT SPECIF 05/11/2018 RON LOPEZ MD, Ot N63.10 UNSPECIFIED LUMP IN THE RIGHT BREAST, UN 05/11/2018 RON LOPEZ MD, Ot R10.31 RIGHT LOWER QUADRANT PAIN 05/11/2018 RON LOPEZ MD, Ot Z79.4 FPC (CURRENT) USE OF INSULIN 05/11/2018 RON LOPEZ MD, Ot Z79.51 SMALL PRODUCTS I ASSEMBLER (CURRENT) USE OF INHALED STERO 05/11/2018 RON LOPEZ MD, Ot Z79.82 SMALL PRODUCTS I ASSEMBLER (CURRENT) USE OF ASPIRIN 05/11/2018 RON LOPEZ MD Ot Z85.3 PERSONAL HISTORY OF MALIGNANT NEOPLASM O 05/11/2018 RON LOPEZ MD, Ot Z87.19 PERSONAL HISTORY OF OTHER DISEASES OF TH 05/11/2018 RON LOPEZ MD Ot Z92.21 PERSONAL HISTORY OF ANTINEOPLASTIC CHEMO 05/11/2018 RON LOPEZ MD Ot Z98.890 OTHER SPECIFIED POSTPROCEDURAL STATES 05/15/2018 [...] FO 06/11/2018 DANNY PADILLA Ot Z79.899 OTHER SMALL [employer]ODUCTS I ASSEMBLER (CURRENT) DRUG THERAPY 06/11/2018 DANNY PADILLA Ot [...] PRIMARY OSTEOARTHRITIS, UNSPECIFIED SITE 06/16/2018 ABHISHEK SAGE MD Ot R26.9 UNSPECIFIED ABNORMALITIES OF GAIT AND [...] EPISTAXIS 06/19/2018 DORIS ESPARZA DO, Ot Z79.01 FPC (CURRENT) USE OF ANTICOAGULANT 06/19/2018 DORIS ESPARZA DO, Ot Z79.4 SMALL PRODUCTS I ASSEMBLER (CURRENT) USE OF INSULIN 06/19/2018 DORIS ESPARZA DO, Ot Z79.51 FPC (CURRENT) USE OF INHALED STERO 06/19/2018 DORIS ESPARZA DO, Ot Z79.82 SMALL PRODUCTS I ASSEMBLER (CURRENT) USE OF ASPIRIN 06/19/2018 DORIS ESPARZA [...] HISTORY OF ANTINEOPLASTIC CHEMO 06/19/2018 DORIS ESPARZA DO, Ot Z98.890 OTHER SPECIFIED POSTPROCEDURAL STATES 06/20/2018 [facility], GABRIEL Ot E11.40 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 06/20/2018 [facility], GABRIEL Ot E11.621 TYPE 2 DIABETES MELLITUS WITH FOOT ULCER 06/20/2018 [facility], GABRIEL Ot E78.00 PURE HYPERCHOLESTEROLEMIA, UNSPECIFIED 06/20/2018 [facility], GABRIEL Ot F41.9 ANXIETY DISORDER, UNSPECIFIED 06/20/2018 [facility], GABRIEL Ot G47.30 SLEEP APNEA, UNSPECIFIED 06/20/2018 [facility], GABRIEL Ot 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 06/20/2018 [facility], GABRIEL Ot I10 ESSENTIAL (PRIMARY) HYPERTENSION 06/20/2018 [facility], GABRIEL Ot 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 06/20/2018 [facility], GABRIEL Ot Z79.01 FPC (CURRENT) USE OF ANTICOAGULANT 06/20/2018 [facility], GABRIEL Ot Z79.4 [employer] I ASSEMBLER (CURRENT) USE OF INSULIN 06/20/2018 [facility], GABRIEL Ot Z79.82 SMALL PRODUCTS I ASSEMBLER (CURRENT) USE OF ASPIRIN 06/20/2018 [facility], GABRIEL Ot Z82.49 FAMILY HX OF ISCHEM HEART DIS AND OTH DI 06/20/2018 [facility], GABRIEL Ot Z85.3 PERSONAL HISTORY OF MALIGNANT NEOPLASM O 06/20/2018 [facility], GABRIEL Ot Z87.19 PERSONAL HISTORY OF OTHER DISEASES OF TH 06/20/2018 SALLY , GABRIEL Ot Z87.448 PERSONAL HISTORY OF OTHER DISEASES OF UR 06/20/2018 ZAVALA , GABRIEL Ot Z92.21 PERSONAL HISTORY OF ANTINEOPLASTIC CHEMO 06/20/2018 [facility], GABRIEL Ot Z98.890 OTHER SPECIFIED POSTPROCEDURAL STATES [...] EPISTAXIS 06/21/2018 DORIS ESPARZA DO, Ot Z79.01 [employer]ODUCTS I ASSEMBLER (CURRENT) USE OF ANTICOAGULANT 06/21/2018 DORIS ESPARZA DO, Ot Z79.4 FPC (CURRENT) USE OF INSULIN 06/21/2018 DORSI ESPARZA DO, Ot Z79.51 FPC (CURRENT) USE OF INHALED STERO 06/21/2018 DORIS ESPARZA DO, Ot Z79.82 FPC (CURRENT) USE OF ASPIRIN 06/21/2018 DORIS ESPARZA [...] LEFT 06/22/2018 GABRIEL ZAVALA DO, Ot Z79.01 FPC (CURRENT) USE OF ANTICOAGULANT 06/22/2018 GABRIEL ZAVALA DO, Ot Z79.4 FPC (CURRENT) USE OF INSULIN 06/22/2018 GABRIEL ZAVALA DO Ot Z79.82 FPC (CURRENT) USE OF ASPIRIN 06/22/2018 SALLY SLOAN, GABRIEL Ot Z82.49 FAMILY HX OF ISCHEM HEART DIS AND OTH DI 06/22/2018 GABRIEL ZAVALA DO Ot Z85.3 PERSONAL HISTORY OF MALIGNANT NEOPLASM O 06/22/2018 SALLY GABRIEL Ot Z87.19 PERSONAL HISTORY OF OTHER DISEASES OF TH 06/22/2018 SALLY SLOAN, GABRIEL Ot Z87.448 PERSONAL HISTORY OF OTHER DISEASES OF UR 06/22/2018 SALLY SLOAN, GABRIEL Ot Z92.21 PERSONAL HISTORY OF ANTINEOPLASTIC CHEMO 06/22/2018 SALLY SLOAN, GABRIEL Ot Z98.890 OTHER SPECIFIED POSTPROCEDURAL STATES 06/23/2018 MARYANN PENG MD Ot E11.40 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 06/23/2018 MARYANN PENG MD, Ot G47.33 OBSTRUCTIVE SLEEP APNEA (ADULT) (PEDIATR 06/23/2018 MARYANN PENG MD Ot I10 ESSENTIAL (PRIMARY) HYPERTENSION 06/23/2018 MARYANN PENG MD Ot K21.9 GASTRO-ESOPHAGEAL 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 06/23/2018 MARYANN PENG MD Ot R04.0 EPISTAXIS 06/23/2018 MARYANN PENG MD Ot Z79.01 [employer]ODUCTS I ASSEMBLER (CURRENT) USE OF ANTICOAGULANT 06/23/2018 MARYANN PENG MD Ot Z79.82 [employer]ODUCTS I ASSEMBLER (CURRENT) USE OF ASPIRIN 06/23/2018 MARYANN PENG MD Ot Z79.899 OTHER [employer] PRODUCTS I ASSEMBLER (CURRENT) DRUG THERAPY 06/23/2018 MARYANN PENG MD Ot Z86.711 PERSONAL HISTORY OF PULMONARY EMBOLISM 06/28/2018 MARYANN PENG MD, Ot E11.40 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 06/28/2018 MARYANN PENG MD, Ot G47.33 OBSTRUCTIVE SLEEP APNEA (ADULT) (PEDIATR 06/28/2018 MARYANN PENG MD Ot I10 ESSENTIAL (PRIMARY) HYPERTENSION 06/28/2018 MARYANN PENG MD Ot K21.9 GASTRO-ESOPHAGEAL 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 06/28/2018 MARYANN PENG MD Ot R04.0 EPISTAXIS 06/28/2018 MARYANN PENG MD Ot Z79.01 [employer] PRODUCTS I ASSEMBLER (CURRENT) USE OF ANTICOAGULANT 06/28/2018 MARYANN PENG MD Ot Z79.82 FPC (CURRENT) USE OF ASPIRIN 06/28/2018 DANISH CARRILLO MARYANN Spicer Ot Z79.899 OTHER SMALL PRODUCTS I ASSEMBLER (CURRENT) DRUG THERAPY 06/28/2018 MARYANN PENG MD Ot Z86.711 PERSONAL HISTORY OF PULMONARY EMBOLISM 07/06/2018 [facility], GABRIEL Ot E11.40 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 07/06/2018 [facility], GABRIEL Ot E11.621 TYPE 2 DIABETES MELLITUS WITH FOOT ULCER 07/06/2018 [facility], GABRIEL Ot E78.00 PURE HYPERCHOLESTEROLEMIA, UNSPECIFIED 07/06/2018 [facility], GABRIEL Ot F41.9 ANXIETY DISORDER, UNSPECIFIED 07/06/2018 [facility], GABRIEL Ot G47.30 SLEEP APNEA, UNSPECIFIED 07/06/2018 [facility], GABRIEL Ot 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 07/06/2018 [facility], GABRIEL Ot I10 ESSENTIAL (PRIMARY) HYPERTENSION 07/06/2018 [facility], GABRIEL Ot 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 07/06/2018 [facility], GABRIEL Ot Z79.01 SMALL PRODUCTS I ASSEMBLER (CURRENT) USE OF ANTICOAGULANT 07/06/2018 [facility], GABRIEL Ot Z79.4 FPC (CURRENT) USE OF INSULIN 07/06/2018 [facility], GABRIEL Ot Z79.82 FPC (CURRENT) USE OF ASPIRIN 07/06/2018 [facility], GABRIEL Ot Z82.49 FAMILY HX OF ISCHEM HEART DIS AND OTH DI 07/06/2018 [facility], GABRIEL Ot Z85.3 PERSONAL HISTORY OF MALIGNANT NEOPLASM O 07/06/2018 [facility], GABRIEL Ot Z87.19 PERSONAL HISTORY OF OTHER DISEASES OF TH 07/06/2018 [facility], GABRIEL Ot Z87.448 PERSONAL HISTORY OF OTHER DISEASES OF UR 07/06/2018 ZAVALA , GABRIEL Ot Z92.21 PERSONAL HISTORY OF ANTINEOPLASTIC CHEMO 07/06/2018 [facility], GABRIEL Ot Z98.890 OTHER SPECIFIED POSTPROCEDURAL STATES 08/07/2018 PABLITO HOWARD DO Ot E11.40 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 08/07/2018 PABLITO HOWARD DO Ot E78.00 PURE HYPERCHOLESTEROLEMIA, UNSPECIFIED 08/07/2018 PABLITO HOWARD DO Ot F41.9 ANXIETY DISORDER, UNSPECIFIED 08/07/2018 PABLITO HOWARD DO, Ot G47.30 SLEEP APNEA, UNSPECIFIED 08/07/2018 PABLITO HOWARD DO Ot I10 ESSENTIAL (PRIMARY) HYPERTENSION 08/07/2018 PABLITO HOWARD DO, Ot R04.0 EPISTAXIS 08/07/2018 PABLITO HOWARD DO, Ot Z79.01 SMALL PRODUCTS I ASSEMBLER (CURRENT) USE OF ANTICOAGULANT 08/07/2018 PABLITO HOWARD DO, Ot Z79.82 FPC (CURRENT) USE OF ASPIRIN 08/07/2018 PABLITO HOWARD DO, Ot Z79.84 FPC (CURRENT) USE OF ORAL HYPOGLYC 08/07/2018 PABLITO HOWARD DO, Ot Z82.49 FAMILY HX OF ISCHEM HEART DIS AND OTH DI 08/07/2018 PABLITO HOWARD DO, Ot Z85.3 PERSONAL HISTORY OF MALIGNANT NEOPLASM O 08/07/2018 PABLITO HOWARD DO, Ot Z86.711 PERSONAL HISTORY OF PULMONARY EMBOLISM 08/09/2018 PABLITO HOWARD DO Ot E11.40 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 08/09/2018 PABLITO HOWARD DO, Ot E78.00 PURE HYPERCHOLESTEROLEMIA, UNSPECIFIED 08/09/2018 PABLITO HOWARD DO, Ot F41.9 ANXIETY DISORDER, UNSPECIFIED 08/09/2018 PABLITO HOWARD DO, Ot G47.30 SLEEP APNEA, UNSPECIFIED 08/09/2018 PABLITO HOWARD DO Ot I10 ESSENTIAL (PRIMARY) HYPERTENSION 08/09/2018 PABLITO HOWARD DO, Ot R04.0 EPISTAXIS 08/09/2018 PABLITO HOWARD DO, Ot Z79.01 [facility] (CURRENT) USE OF ANTICOAGULANT 08/09/2018 PABLITO HOWARD DO, Ot Z79.82 [facility] (CURRENT) USE OF ASPIRIN 08/09/2018 PABLITO HOWARD DO, Ot Z79.84 [employer] (CURRENT) USE OF ORAL HYPOGLYC 08/09/2018 PABLITO HOWARD DO, Ot Z82.49 FAMILY HX OF ISCHEM HEART DIS AND OTH DI 08/09/2018 PABLITO HOWARD DO, Ot Z85.3 PERSONAL HISTORY OF MALIGNANT NEOPLASM O 08/09/2018 PABLITO HOWARD DO, Ot Z86.711 PERSONAL HISTORY OF PULMONARY EMBOLISM 08/25/2018 ERENDIRA KEANE MD Ot S91.302A UNSPECIFIED OPEN WOUND, LEFT FOOT, INITI 08/25/2018 BRIANNA HERNANDEZ DO Ot E11.40 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 08/25/2018 BRIANNA HERNANDEZ DO Ot E78.00 PURE HYPERCHOLESTEROLEMIA, UNSPECIFIED 08/25/2018 MARY SLOAN BRIANNA Ot F41.9 ANXIETY DISORDER, UNSPECIFIED 08/25/2018 MARY SLOAN BRIANNA Ot G25.81 RESTLESS LEGS SYNDROME 08/25/2018 MARY SLOAN BRIANNA Ot G47.30 SLEEP APNEA, UNSPECIFIED 08/25/2018 MARY SLOAN BRIANNA Ot I10 ESSENTIAL (PRIMARY) HYPERTENSION 08/25/2018 MARY SLOAN BRIANNA Ot K43.2 INCISIONAL HERNIA WITHOUT OBSTRUCTION OR 08/25/2018 MARY SLOAN BRIANNA Ot K56.600 PARTIAL INTESTINAL OBSTRUCTION, UNSPECIF 08/25/2018 MARY SLOAN BRIANNA Ot Z79.84 [employer] (CURRENT) USE OF ORAL HYPOGLYC 08/25/2018 MARY SLOAN BRIANNA Ot Z85.3 PERSONAL HISTORY OF MALIGNANT NEOPLASM O 08/25/2018 MARY SLOAN BRIANNA Ot Z86.69 PERSONAL HISTORY OF DIS OF THE NERVOUS S 08/25/2018 MARY SLOAN BRIANNA Ot Z86.711 PERSONAL HISTORY OF PULMONARY EMBOLISM 08/25/2018 SOPHIA HERNANDEZ DOI Ot Z92.21 PERSONAL HISTORY OF ANTINEOPLASTIC CHEMO 08/25/2018 SOPHIA HERNANDEZ DOI Ot Z92.3 PERSONAL HISTORY OF IRRADIATION 08/25/2018 SOPHAI HERNANDEZ DOI Ot C50.919 MALIGNANT NEOPLASM OF UNSP SITE OF UNSPE 08/25/2018 BRIANNA HERNANDEZ DO Ot E11.40 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 08/25/2018 MARY SLOAN BRIANNA Ot E78.00 PURE HYPERCHOLESTEROLEMIA, UNSPECIFIED 08/25/2018 MARY SLOAN BRIANNA Ot F41.9 ANXIETY DISORDER, UNSPECIFIED 08/25/2018 MARY SLOAN BRIANNA Ot G25.81 RESTLESS LEGS SYNDROME 08/25/2018 MARY SLOAN BRIANNA Ot G47.30 SLEEP APNEA, UNSPECIFIED 08/25/2018 MARY SLOAN BRIANNA 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 08/25/2018 MARY SLOAN BRIANNA Ot I10 ESSENTIAL (PRIMARY) HYPERTENSION 08/25/2018 MARY SLOAN BRIANNA Ot K43.2 INCISIONAL HERNIA WITHOUT OBSTRUCTION OR 08/25/2018 MARY SLOAN BRIANNA Ot K56.600 PARTIAL INTESTINAL OBSTRUCTION, UNSPECIF 08/25/2018 MARY SLOAN BRIANNA Ot K56.7 ILEUS, UNSPECIFIED 08/25/2018 BRIANNA HERNANDEZ DO Ot L97.329 NON-PRESSURE CHRONIC ULCER OF LEFT ANKLE 08/25/2018 BRIANNA HERNANDEZ DO Ot R04.0 EPISTAXIS 08/25/2018 BRIANNA HERNANDEZ DO Ot Z79.01 [facility] (CURRENT) USE OF ANTICOAGULANT 08/25/2018 BRIANNA HERNANDEZ DO Ot Z79.84 [facility] (CURRENT) USE OF ORAL HYPOGLYC 08/25/2018 BRIANNA HERNANDEZ DO Ot Z85.3 PERSONAL HISTORY OF MALIGNANT NEOPLASM O 08/25/2018 BRIANNA HERNANDEZ DO Ot Z86.69 PERSONAL HISTORY OF DIS OF THE NERVOUS S 08/25/2018 BRIANNA HERNANDEZ DO Ot Z86.711 PERSONAL HISTORY OF PULMONARY EMBOLISM 08/25/2018 BRIANNA HERNANDEZ DO Ot Z86.718 PERSONAL HISTORY OF OTHER VENOUS THROMBO 08/25/2018 BRIANNA HERNANDEZ DO Ot Z92.21 PERSONAL HISTORY OF ANTINEOPLASTIC CHEMO 08/25/2018 BRIANNA HERNANDEZ DO Ot Z92.3 PERSONAL HISTORY OF IRRADIATION 08/25/2018 BRIANNA HERNANDEZ DO Ot Z99.81 DEPENDENCE ON SUPPLEMENTAL OXYGEN 08/27/2018 DIYA CARRILLO, ERENDIRA Keith Ot S91.302A UNSPECIFIED OPEN WOUND, LEFT FOOT, INITI Procedures Code Description Performed By Performed On [id number] EXCISION OF L FOOT SUBCU/FASCIA, OPEN AP 06/09/2018 [id number] DRAINAGE OF STOMACH WITH DRAINAGE DEVICE 08/22/2018 Results Test Result Range Complete blood count [...] culture - 05/07/18 20:21 Bacterial urine culture [id number] NRG COLONY COUNT >100,000/ML NRG FTX;REPORTABLE SENSITIVITY REPORTED 05/10/18 15:05 NRG FREE TEXT ENTRY 2 ID REPORTED 05/09/18 16:[facility] - 05/07/18 20:21 Gentamicin susceptibility [...] 33.1 g/dL 32.0-36.0 MCV 103.7 fL 80.0-97.0 Cochran% 9.2 % 0.0-12.0 MPV 9.0 fL 7.4-10.0 Emiliana% 60.8 % 37.0-80.0 Plt 387 K/uL 150-400 RBC 3.00 M/uL 3.60-5.00 RDW 13.3 % 11.6-14.8 WBC 6.19 K/uL 5.00-10.00 Emiliana 3.76 K/uL 2.00-6.90 Cochran 0.6 K/uL 0.0-0.9 Baso 0.0 K/uL 0.0-0.2 Prealbumin - 07/26/18 07:14 Prealbumin 18.00 mg/dL 16.00-38.00 Gram stain microscopy - 08/04/18 09:15 Gram stain microscopy MODERATE GRAM POSITIVE COCCI NRG Bacteria identification in wound by culture - 08/04/18 09:15 Bacteria identification in wound by culture [id number] NRG FREE TEXT EXTERNAL SUSCEPTIBILITY REPORTED 08/07 [...] > NRG Minocycline susc TREVOR <= NRG Complete blood count (CBC) with automated white blood cell (WBC) differential - 08/22/18 16:08 Blood leukocytes automated count (number/volume) 10.9 10*3/uL 4.3-11.0 Blood erythrocytes automated count (number/volume) 3.99 10*6/uL 4.35-5.85 Venous blood hemoglobin measurement (mass/volume) 12.5 g/dL 11.5-16.0 Blood hematocrit (volume fraction) 38 % 35-52 Automated erythrocyte mean corpuscular volume 95 [foz_us] 80-99 Automated erythrocyte mean corpuscular hemoglobin (mass per erythrocyte) 31 pg 25-34 Automated erythrocyte mean corpuscular hemoglobin concentration measurement (mass/volume) 33 g/dL 32-36 Automated erythrocyte distribution width ratio 13.3 % 10.0- 14.5 Automated blood platelet count (count/volume) 292 10*3/uL 130-400 Automated blood platelet mean volume measurement 9.0 [foz_us] 7.4-10.4 Automated blood neutrophils/100 leukocytes 81 % 42-75 Automated blood lymphocytes/100 leukocytes 10 % 12-44 Blood monocytes/100 leukocytes 8 % 0-12 Automated blood eosinophils/100 leukocytes 0 % 0-10 Automated blood basophils/100 leukocytes 0 % 0-10 Blood neutrophils automated count (number/volume) 8.8 10*3 1.8-7.8 Blood lymphocytes automated count (number/volume) 1.0 10*3 1.0-4.0 Blood monocytes automated count (number/volume) 0.9 10*3 0.0- 1.0 Automated eosinophil count 0.0 10*3/uL 0.0-0.3 Automated blood basophil count (count/volume) 0.0 10*3/uL 0.0-0.1 Comprehensive metabolic panel - 08/22/18 16:08 Serum or plasma sodium measurement (moles/volume) 135 mmol/L 135-145 Serum or plasma potassium measurement (moles/volume) 5.0 mmol/L 3.6-5.0 Serum or plasma chloride measurement (moles/volume) 91 mmol/L 98-107 Carbon dioxide 26 mmol/L 21-32 Serum or plasma anion gap determination (moles/volume) 18 mmol/L 5-14 Serum or plasma urea nitrogen measurement (mass/volume) 32 mg/dL 7-18 Serum or plasma creatinine measurement (mass/volume) 0.91 mg/dL 0.60-1.30 Serum or plasma urea nitrogen/creatinine mass ratio 35 NRG Serum or plasma creatinine measurement with calculation of estimated glomerular filtration rate 60 NRG Serum or plasma glucose measurement (mass/volume) 209 mg/dL 70-105 Serum or plasma calcium measurement (mass/volume) 10.0 mg/dL 8.5-10.1 Serum or plasma total bilirubin measurement (mass/volume) 0.3 mg/dL 0.1-1.0 Serum or plasma alkaline phosphatase measurement (enzymatic activity/volume) 93 U/L 40-136 Serum or plasma aspartate aminotransferase measurement (enzymatic activity/volume) 25 U/L 5-34 Serum or plasma alanine aminotransferase measurement (enzymatic activity/volume) 21 U/L 0-55 Serum or plasma protein measurement (mass/volume) 7.9 g/dL 6.4-8.2 Serum or plasma albumin measurement (mass/volume) 4.5 g/dL 3.2-4.5 CALCIUM CORRECTED 9.6 mg/dL 8.5-10.1 Complete blood count (CBC) with automated white blood cell (WBC) differential - 08/23/18 05:36 Blood leukocytes automated count (number/volume) 7.3 10*3/uL 4.3-11.0 Blood erythrocytes automated count (number/volume) 3.43 10*6/uL 4.35-5.85 Venous blood hemoglobin measurement (mass/volume) 10.7 g/dL 11.5-16.0 Blood hematocrit (volume fraction) 34 % 35-52 Automated erythrocyte mean corpuscular volume 98 [foz_us] 80-99 Automated erythrocyte mean corpuscular hemoglobin (mass per erythrocyte) 31 pg 25-34 Automated erythrocyte mean corpuscular hemoglobin concentration measurement (mass/volume) 32 g/dL 32-36 Automated erythrocyte distribution width ratio 13.7 % 10.0- 14.5 Automated blood platelet count (count/volume) 205 10*3/uL 130-400 Automated blood platelet mean volume measurement 9.6 [foz_us] 7.4-10.4 Automated blood neutrophils/100 leukocytes 71 % 42-75 Automated blood lymphocytes/100 leukocytes 15 % 12-44 Blood monocytes/100 leukocytes 12 % 0-12 Automated blood eosinophils/100 leukocytes 2 % 0-10 Automated blood basophils/100 leukocytes 0 % 0-10 Blood neutrophils automated count (number/volume) 5.2 10*3 1.8-7.8 Blood lymphocytes automated count (number/volume) 1.1 10*3 1.0-4.0 Blood monocytes automated count (number/volume) 0.8 10*3 0.0- 1.0 Automated eosinophil count 0.1 10*3/uL 0.0-0.3 Automated blood basophil count (count/volume) 0.0 10*3/uL 0.0-0.1 Comprehensive metabolic panel - 08/23/18 05:36 Serum or plasma sodium measurement (moles/volume) 137 mmol/L 135-145 Serum or plasma potassium measurement (moles/volume) 5.2 mmol/L 3.6-5.0 Serum or plasma chloride measurement (moles/volume) 105 mmol/L 98-107 Carbon dioxide 22 mmol/L 21-32 Serum or plasma anion gap determination (moles/volume) 10 mmol/L 5-14 Serum or plasma urea nitrogen measurement (mass/volume) 30 mg/dL 7-18 Serum or plasma creatinine measurement (mass/volume) 0.84 mg/dL 0.60-1.30 Serum or plasma urea nitrogen/creatinine mass ratio 36 NRG Serum or plasma creatinine measurement with calculation of estimated glomerular filtration rate > NRG Serum or plasma glucose measurement (mass/volume) 103 mg/dL 70-105 Serum or plasma calcium measurement (mass/volume) 9.1 mg/dL 8.5-10.1 Serum or plasma total bilirubin measurement (mass/volume) 0.3 mg/dL 0.1-1.0 Serum or plasma alkaline phosphatase measurement (enzymatic activity/volume) 70 U/L 40-136 Serum or plasma aspartate aminotransferase measurement (enzymatic activity/volume) 22 U/L 5-34 Serum or plasma alanine aminotransferase measurement (enzymatic activity/volume) 17 U/L 0-55 Serum or plasma protein measurement (mass/volume) 6.1 g/dL 6.4-8.2 Serum or plasma albumin measurement (mass/volume) 3.5 g/dL 3.2-4.5 CALCIUM CORRECTED 9.5 mg/dL 8.5-10.1 Complete blood count (CBC) with automated white blood cell (WBC) differential - 08/24/18 06:15 Blood leukocytes automated count (number/volume) 7.8 10*3/uL 4.3-11.0 Blood erythrocytes automated count (number/volume) 3.44 10*6/uL 4.35-5.85 Venous blood hemoglobin measurement (mass/volume) 10.7 g/dL 11.5-16.0 Blood hematocrit (volume fraction) 34 % 35-52 Automated erythrocyte mean corpuscular volume 98 [foz_us] 80-99 Automated erythrocyte mean corpuscular hemoglobin (mass per erythrocyte) 31 pg 25-34 Automated erythrocyte mean corpuscular hemoglobin concentration measurement (mass/volume) 32 g/dL 32-36 Automated erythrocyte distribution width ratio 13.8 % 10.0- 14.5 Automated blood platelet count (count/volume) 212 10*3/uL 130-400 Automated blood platelet mean volume measurement 10.0 [foz_us] 7.4-10.4 Automated blood neutrophils/100 leukocytes 72 % 42-75 Automated blood lymphocytes/100 leukocytes 16 % 12-44 Blood monocytes/100 leukocytes 11 % 0-12 Automated blood eosinophils/100 leukocytes 1 % 0-10 Automated blood basophils/100 leukocytes 0 % 0-10 Blood neutrophils automated count (number/volume) 5.6 10*3 1.8-7.8 Blood lymphocytes automated count (number/volume) 1.3 10*3 1.0-4.0 Blood monocytes automated count (number/volume) 0.8 10*3 0.0- 1.0 Automated eosinophil count 0.0 10*3/uL 0.0-0.3 Automated blood basophil count (count/volume) 0.0 10*3/uL 0.0-0.1 Comprehensive metabolic panel - 08/24/18 06:20 Serum or plasma sodium measurement (moles/volume) 140 mmol/L 135-145 Serum or plasma potassium measurement (moles/volume) 4.1 mmol/L 3.6-5.0 Serum or plasma chloride measurement (moles/volume) 106 mmol/L 98-107 Carbon dioxide 21 mmol/L 21-32 Serum or plasma anion gap determination (moles/volume) 13 mmol/L 5-14 Serum or plasma urea nitrogen measurement (mass/volume) 19 mg/dL 7-18 Serum or plasma creatinine measurement (mass/volume) 0.72 mg/dL 0.60-1.30 Serum or plasma urea nitrogen/creatinine mass ratio 26 NRG Serum or plasma creatinine measurement with calculation of estimated glomerular filtration rate > NRG Serum or plasma glucose measurement (mass/volume) 112 mg/dL 70-105 Serum or plasma calcium measurement (mass/volume) 9.4 mg/dL 8.5-10.1 Serum or plasma total bilirubin measurement (mass/volume) 0.2 mg/dL 0.1-1.0 Serum or plasma alkaline phosphatase measurement (enzymatic activity/volume) 75 U/L 40-136 Serum or plasma aspartate aminotransferase measurement (enzymatic activity/volume) 25 U/L 5-34 Serum or plasma alanine aminotransferase measurement (enzymatic activity/volume) 18 U/L 0-55 Serum or plasma protein measurement (mass/volume) 7.0 g/dL 6.4-8.2 Serum or plasma albumin measurement (mass/volume) 3.9 g/dL 3.2-4.5 CALCIUM CORRECTED 9.5 mg/dL 8.5-10.1 Complete blood count (CBC) with automated white blood cell (WBC) differential - 08/25/18 05:07 Blood leukocytes automated count (number/volume) 6.6 10*3/uL 4.3-11.0 Blood erythrocytes automated count (number/volume) 3.43 10*6/uL 4.35-5.85 Venous blood hemoglobin measurement (mass/volume) 10.6 g/dL 11.5-16.0 Blood hematocrit (volume fraction) 34 % 35-52 Automated erythrocyte mean corpuscular volume 99 [foz_us] 80-99 Automated erythrocyte mean corpuscular hemoglobin (mass per erythrocyte) 31 pg 25-34 Automated erythrocyte mean corpuscular hemoglobin concentration measurement (mass/volume) 31 g/dL 32-36 Automated erythrocyte distribution width ratio 13.6 % 10.0- 14.5 Automated blood platelet count (count/volume) 197 10*3/uL 130-400 Automated blood platelet mean volume measurement 9.8 [foz_us] 7.4-10.4 Automated blood neutrophils/100 leukocytes 67 % 42-75 Automated blood lymphocytes/100 leukocytes 18 % 12-44 Blood monocytes/100 leukocytes 12 % 0-12 Automated blood eosinophils/100 leukocytes 3 % 0-10 Automated blood basophils/100 leukocytes 1 % 0-10 Blood neutrophils automated count (number/volume) 4.4 10*3 1.8-7.8 Blood lymphocytes automated count (number/volume) 1.2 10*3 1.0-4.0 Blood monocytes automated count (number/volume) 0.8 10*3 0.0- 1.0 Automated eosinophil count 0.2 10*3/uL 0.0-0.3 Automated blood basophil count (count/volume) 0.0 10*3/uL 0.0-0.1 Comprehensive metabolic panel - 08/25/18 05:07 Serum or plasma sodium measurement (moles/volume) 136 mmol/L 135-145 Serum or plasma potassium measurement (moles/volume) 3.6 mmol/L 3.6-5.0 Serum or plasma chloride measurement (moles/volume) 104 mmol/L 98-107 Carbon dioxide 21 mmol/L 21-32 Serum or plasma anion gap determination (moles/volume) 11 mmol/L 5-14 Serum or plasma urea nitrogen measurement (mass/volume) 21 mg/dL 7-18 Serum or plasma creatinine measurement (mass/volume) 0.68 mg/dL 0.60-1.30 Serum or plasma urea nitrogen/creatinine mass ratio 31 NRG Serum or plasma creatinine measurement with calculation of estimated glomerular filtration rate > NRG Serum or plasma glucose measurement (mass/volume) 98 mg/dL 70-105 Serum or plasma calcium measurement (mass/volume) 8.8 mg/dL 8.5-10.1 Serum or plasma total bilirubin measurement (mass/volume) 0.3 mg/dL 0.1-1.0 Serum or plasma alkaline phosphatase measurement (enzymatic activity/volume) 65 U/L 40-136 Serum or plasma aspartate aminotransferase measurement (enzymatic activity/volume) 30 U/L 5-34 Serum or plasma alanine aminotransferase measurement (enzymatic activity/volume) 24 U/L 0-55 Serum or plasma protein measurement (mass/volume) 6.4 g/dL 6.4-8.2 Serum or plasma albumin measurement (mass/volume) 3.5 g/dL 3.2-4.5 CALCIUM CORRECTED 9.2 mg/dL 8.5-10.1 Capillary blood glucose measurement by glucometer (mass/volume) - 09/04/18 01:21 Capillary blood glucose measurement by glucometer (mass/volume) 79 mg/dL 70-110 Complete urinalysis with reflex to culture - 09/04/18 01:56 Urine color determination YELLOW NRG Urine clarity determination CLEAR NRG Urine pH measurement by test strip 6.5 5-9 Specific gravity of urine by test strip < 1.016-1.022 Urine protein assay by test strip, semi-quantitative NEGATIVE NEGATIVE Urine glucose detection by automated test strip NEGATIVE NEGATIVE Erythrocytes detection in urine sediment by light microscopy TRACE NEGATIVE Urine ketones detection by automated test strip NEGATIVE NEGATIVE Urine nitrite detection by test strip NEGATIVE NEGATIVE Urine total bilirubin detection by test strip NEGATIVE NEGATIVE Urine urobilinogen measurement by automated test strip (mass/volume) 0.2 mg/dL NORMAL Urine leukocyte esterase detection by dipstick 3+ NEGATIVE Automated urine sediment erythrocyte count by microscopy (number/high power field) [HPF] NRG Automated urine sediment leukocyte count by microscopy (number/high power field) > [HPF] NRG Bacteria detection in urine sediment by light microscopy MODERATE NRG Crystals detection in urine sediment by light microscopy NONE NRG Casts detection in urine sediment by light microscopy NONE NRG Mucus detection in urine sediment by light microscopy NEGATIVE NRG Complete urinalysis with reflex to culture YES NRG Blood CBC with ordered manual differential panel - 09/04/18 02:00 Blood leukocytes automated count (number/volume) 8.7 10*3/uL 4.3-11.0 Blood erythrocytes automated count (number/volume) 3.37 10*6/uL 4.35-5.85 Venous blood hemoglobin measurement (mass/volume) 10.5 g/dL 11.5-16.0 Blood hematocrit (volume fraction) 32 % 35-52 Automated erythrocyte mean corpuscular volume 96 [foz_us] 80-99 Automated erythrocyte mean corpuscular hemoglobin (mass per erythrocyte) 31 pg 25-34 Automated erythrocyte mean corpuscular hemoglobin concentration measurement (mass/volume) 33 g/dL 32-36 Automated erythrocyte distribution width ratio 13.3 % 10.0- 14.5 Automated blood platelet count (count/volume) 223 10*3/uL 130-400 Automated blood platelet mean volume measurement 8.9 [foz_us] 7.4-10.4 Automated blood neutrophils/100 leukocytes 74 % 42-75 Automated blood lymphocytes/100 leukocytes 10 % 12-44 Blood monocytes/100 leukocytes 10 % 0-12 Automated blood eosinophils/100 leukocytes 3 % 0-10 Automated blood basophils/100 leukocytes 1 % 0-10 Blood neutrophils automated count (number/volume) 6.5 10*3 1.8-7.8 Blood lymphocytes automated count (number/volume) 0.8 10*3 1.0-4.0 Blood monocytes automated count (number/volume) 0.9 10*3 0.0- 1.0 Automated eosinophil count 0.2 10*3/uL 0.0-0.3 Automated blood basophil count (count/volume) 0.1 10*3/uL 0.0-0.1 Encounters ACCT No. Visit Date/Time Discharge Status Pt. Type Provider Facility Loc./Unit Complaint [id number] 07/26/2018 07:17:00 07/26/2018 23:59:00 DIS Outpatient Fernando Chin [id number] 06/29/2018 19:03:00 06/29/2018 23:59:00 DIS Outpatient Fernando Chin [id number] 06/28/2018 12:40:00 06/28/2018 13:43:00 [place] [facility] [place] [id number] 08/30/2018 15:00:00 08/30/2018 23:59:59 CLS Outpatient ERENDIRA KEANE [facility] [id number] 08/25/2017 14:55:02 ACT Unknown Carlos Melchor MD [id number] 08/22/2018 18:10:00 08/25/2018 14:57:00 DIS Inpatient BRIANNA HERNANDEZ DO [facility] 4TH SMALL BOWEL OBSTRUCTION [id number] 08/07/2018 19:05:00 08/07/2018 20:35:00 DIS Emergency LEE PABLITO [facility] ER FS NOSE BLEED [id number] 08/04/2018 10:38:00 08/04/2018 23:59:59 CLS Outpatient DIYA CARRILLO, ERENDIRA Keith [facility] LAB FS [id number] 06/22/2018 11:29:00 06/23/2018 14:45:00 DIS Outpatient DANISH CARRILLO, MARYANN Spicer [facility] NOSE BLEED [id number] 06/19/2018 22:54:00 06/20/2018 00:02:00 DIS Outpatient GABRIEL ZAVALA DO [facility] ER FS FOOT ULCER [id number] 06/19/2018 11:16:00 06/19/2018 12:57:00 DIS Emergency DORIS ESPARZA DO [facility] ER FS EPISTAXIS [id number] 06/11/2018 11:54:00 06/16/2018 12:45:00 DIS Inpatient ABHISHEK SAGE MD [facility] 4TH LT FOOT WOUND [id number] 05/12/2018 13:33:00 05/12/2018 23:59:59 CLS Outpatient DIYA CARRILLO, ERENDIRA Keith [facility] LAB FS E875 [id number] 05/07/2018 19:21:00 05/07/2018 23:20:00 DIS Emergency RON LOPEZ MD [facility] ER FS RT SIDE PAIN [id number] 03/07/2018 23:02:00 03/10/2018 13:30:00 DIS Inpatient BENJAMÍN BARROW MD [facility] 4TH SMALL BOWEL ILEUS [id number] 03/10/2017 00:13:00 03/10/2017 23:59:59 CLS Preadmit DANNY PADILLA [facility] ONC [id number] 12/09/2016 12:14:00 03/09/2017 00:01:00 DIS Outpatient DANNY PADILLA [facility] ONC [id number] 01/23/2017 07:06:00 01/24/2017 09:35:00 DIS Outpatient MARYANN PENG MD [facility] SDC NOSE BLEED [id number] 12/02/2015 10:42:00 12/02/2015 23:59:59 CLS Outpatient DANNY PADILLA [facility] FS [id number] 11/26/2014 11:00:00 11/26/2014 23:59:59 CLS Outpatient DANNY PADILLA K[place] [facility] FS [id number] 11/20/2013 10:16:00 11/20/2013 23:59:59 CLS Outpatient DANNY PADILLA [facility] FS [id number] 11/28/2012 12:59:00 11/28/2012 23:59:59 CLS Outpatient DANNY PADILLA [facility] FS [id number] 09/04/2018 01:29:00 Document Registration [id number] 11/30/2011 13:04:00 Document Registration [id number] 11/03/2010 12:51:00 Document Registration [id number] 11/04/2009 13:41:00 Document Registration
[2018-09-04 03:00] LABS: BAND NEUTROPHILS 56 %; BASOPHILS % (MANUAL) 0 %; EOSINOPHILS % (MANUAL) 2 %; LYMPHOCYTES % (MANUAL) 17 %; MONOCYTES % (MANUAL) 8 %; NEUTROPHILS % (MANUAL) 68 %; RBC MORPH NORMAL
[2018-09-04 03:01] LABS: CREATININE SERUM 1.3 MG/DL (0.60-1.30); POTASSIUM 5.4 MMOL/L (3.6-5.0)
[2018-09-04 03:02] LABS: CALCIUM 8.9 MG/DL (8.5-10.1)
--- NOTE | 2018-09-04 04:55 | NUR ---
JOSLYN GARCIA admitted to room 415-1, with an admitting diagnosis of UTI , on 09/04/18 from EMS via [facility], accompanied by EMS.JOSLYN GARCIA introduced to surroundings, call light, bed controls, phone, TV, temperature control, lights, meal times, smoking policy, visitor policy, side rail policy, bathrooms and showers. Patient Rights given to patient in the handbook.JOSLYN GARCIA verbalizes understanding that [facility] is not responsible for the loss or damage to any personal effects or valuables that are kept in the patients posession during their hospitalization. Patient and/or family were informed about the Rapid Response Team and its purpose.
[2018-09-04 05:05] VITALS: BP 120/73
[2018-09-04] MEDS ORDERED: NS IV 1000 ML 1,000 ML ONE (05:10)
[2018-09-04] MEDS: NS IV 1000 ML 1,000 ML IV SCH ×2 (05:19→17:32)
[2018-09-04 08:00] VITALS: BP 113/68
[2018-09-04] MEDS ORDERED: RT-ALBUTEROL SULF 2.5 MG/3 ML PRE-MIX VIAL INH PRN (08:45)
--- NOTE | 2018-09-04 10:15 | History & Physical-Hospitalist ---
History of Present Illness HPI/Chief Complaint CC: Weakness HPI: This is a 77yoWF mentally challenged lady who is known to me from multiple hospital stays about every other week, most recent was for a partial small bowel obstruction versus ileus. Who had returned home, maintained on clear liquid diet even though no restriction of diet was ordered at my DC papers who presented with weakness found to have Sodium level of 126, Potassium of 5.4. She will be placed on fluid restriction and normal Saline maintained of 75cc per hour and pt is deeply sleeping at this current time and unable to get any reliable details from her. PT and OT will be ordered along with her home medications. Source: patient Exam Limitations: other (mentally challenged) Date Seen 09/04/18 Time Seen by a Provider: 09:30 Attending Physician Beny Roth MD PCP Vianey Nelson MD Referring Physician Date of Admission Sep 04, 2018 at 02:37 Home Medications & Allergies Home Medications Reviewed patient Home Medication Reconciliation performed by pharmacy medication reconciliations civil drafting technician and/or nursing. Patients Allergies have been reviewed. Allergies Allergies Coded Allergies No Known Drug Allergies (Unverified06/11/18) Past [id number]-[id number] Hx Past Med/Social Hx: Reviewed Nursing Past Med/Soc Hx, Reviewed and Corrections made Patient Social History Marrital Status: single Employed/Student: unemployed Alcohol Use: Denies Use Recreational Drug Use: No Smoking Status: Never a Smoker Type Used: Cigarettes 2nd Hand Smoke Exposure: No Recent Foreign Travel: No Contact w/other who traveled: No Recent Hopitalizations: Yes Recent Infectious Disease Expo: No Seasonal Allergies Seasonal Allergies: No Past Medical History Surgeries: Abdominal, Bowel Surgery, Breast, Gallbladder Cardiac: High Cholesterol, Hypertension Neurological: Dementia, Neuropathy Sexually Transmitted Disease: Yes (GONORRHEA) Menopausal Gastrointestinal: Gastrointestinal Bleed Musculoskeletal: Arthritis Endocrine: Diabetes, Non-Insulin dep HEENT: Cataract Loss of Vision: Bilateral Hearing Impairment: Hard of Hearing, Bilateral Hearing Aide Cancer: Breast Did You Recieve Any Treatments: Yes What Type of Treatment Did You: Chemotherapy, Radiation, Surgical Intervention Psychosocial: Anxiety History of Blood Disorders: No Family History Heart Disease, Diabetes, Hypertension, Other Conditions/Hx Review of Systems Constitutional: see HPI, weakness EENTM: no symptoms reported Respiratory: no symptoms reported Cardiovascular: no symptoms reported Gastrointestinal: no symptoms reported Genitourinary: no symptoms reported Musculoskeletal: other (weakness, unable to walk) Skin: no symptoms reported Psychiatric/Neurological: No Symptoms Reported All Other Systems Reviewed Negative Unless Noted: Yes Physical Exam Physical Exam Vital Signs Vital Signs - First Documented 09/04/18 09/04/18 09/04/18 01:11 03:09 08:28 Temp 98.2 Pulse 79 Resp 18 B/P (MAP) 129/77 (94) Pulse Ox 99 O2 Delivery Nasal Cannula O2 Flow Rate 2.00 FiO2 21 Capillary Refill : Less Than 3 Seconds Height, Weight, BMI Height: 4'11.00" Weight: 150lbs. 4.2oz. 68.017308bj; 36.5 BMI Method:Estimated General Appearance: No Apparent Distress, WD/WN, Chronically ill Eyes: Right Eye Normal Inspection, Right Eye PERRL HEENT: PERRL/EOMI, Normal ENT Inspection, Pharynx Normal, Moist Mucous Membranes Neck: Full Range of Motion, Normal Inspection, Non Tender Respiratory: Chest Non Tender, Lungs Clear, Normal Breath Sounds, No Accessory Muscle Use, No Respiratory Distress Cardiovascular: Regular Rate, Rhythm, No Edema, No Gallop, No JVD, No Murmur, Normal Peripheral Pulses Gastrointestinal: Normal Bowel Sounds, No Organomegaly, No Pulsatile Mass, Non Tender, Soft Back: Normal Inspection, No CVA Tenderness, No Vertebral Tenderness Extremity: Normal Capillary Refill, Normal Inspection, Normal Range of Motion, Non Tender, No Calf Tenderness, No Pedal Edema Neurologic/Psychiatric: Alert, Oriented x3, No Motor/Sensory Deficits, Normal Mood/Affect Skin: Normal Color, Warm/Dry Lymphatic: No Adenopathy Results Results/Procedures Labs Laboratory Tests 09/04/18 02:00 Patient resulted labs reviewed. Assessment/Plan Admission Diagnosis Assessment: Hyponatremia s/p ileus 10 days ago had resolved h/o Pulmonary embolism on OAC Non-insulin dependent type 2 diabetes mellitus Breast cancer in female Mentally challenged O2 dependent Plan: PT/OT IVF Fluid restriction Admission Status: Inpatient Order (span 2 midnights) Reason for Inpatient Admission: Severe hyponatremia in mentally challenged patient will need IVF and fluid restriction for 3 days Diagnosis/Problems Diagnosis/Problems (1) Hyponatremia Status: Acute (2) Weakness Status: Acute (3) Dehydration Status: Acute (4) Breast cancer in female Status: Chronic Qualifiers: Breast location: unspecified site of breast Estrogen receptor status: unspecified Laterality: unspecified laterality Qualified Codes: C50.919 - Malignant neoplasm of unspecified site of unspecified female breast (5) Non-insulin dependent type 2 diabetes mellitus Status: Chronic (6) Pulmonary embolism Status: Chronic Qualifiers: Pulmonary embolism type: unspecified Chronicity: unspecified Acute cor pulmonale presence: without acute cor pulmonale Qualified Codes: I26.99 - Other pulmonary embolism without acute cor pulmonale Clinical Quality Measures DVT/VTE Risk/Contraindication: Risk Factor Score Per Nursin RFS Level Per Nursing on Admit: 4+=Very High BRIANNA HERNANDEZ DO Sep 04, 2018 10:15
[2018-09-04 12:00] VITALS: BP 117/63
--- NOTE | 2018-09-04 14:00 | NUR ---
Pastoral care visit.
[2018-09-04] MEDS ORDERED: SULF-222 PO (14:40)
--- NOTE | 2018-09-04 16:08 | Physical Therapy Evaluation ---
PT Evaluation-General Medical Diagnosis Admission Date Sep 04, 2018 at 02:37 Medical Diagnosis: UTI/dehydration/weakness Onset Date: Sep 04, 2018 Therapy Diagnosis Therapy Diagnosis: debility/weakness Height/Weight Height (Feet): 4 Height (Inches): 11.00 Weight (Pounds): 150 Weight (Ounces): 4.2 Precautions Precautions/Isolations: Fall Prevention, Standard Precautions Referral Physician: Renetta Reason for Referral: Evaluation/Treatment Medical History Pertinent Medical History: Arthritis, DM, HTN, Neuropathy Additional Medical History recent hospital stay due to SBO Current History ER with abdominal pain and constipation Reviewed History: Yes Social History Home: Snf Prior/Core FIM Prior Level of Function Therapy Code Descriptions/Definitions Functional [place] Measure: 0=Not Assessed/NA 4=Minimal Assistance 1=Total Assistance 5=Supervision or Setup 2=Maximal Assistance 6=Modified [place] 3=Moderate Assistance 7=Complete [place] Therapy Quality Codes: 6 Independent with activity with or without an assistive device 5 Patient requires set up or clean up by helper. Patient completes activity by themselves 4 Supervision or touching assist (CGA). [place] provide cues , steadying assist 3 The helper provides less than half the effort to complete the activity 2 The helper provides more than half the effort to complete the activity 1 Dependent. The helper does all the effort to complete an activity 7 Patient refused to complete or attempt activity 9 The patient did not perform the activity before the current illness or injury 88 Not attempted due to Medical conditions or safety concerns Functional Abilities and Goals: Independent: Patient completed the activities by him/herself, with or without an assistive device, with no assistance from a helper. Needed Some Help: Patient needed partial assistance from another person to complete activities. Dependent: A helper completed the activities for the patient. Unknown: Not Applicable: Bed Mobility: 3 Transfers (B,C,W/C) (FIM): 4 Gait: 1 Wheelchair Mobility: 3 Indoor Mobility (Ambulation): Needed Some Help Stairs: Not [place] Prior Devices Use: Manual wheelchair, Walker PT Evaluation-Current Subjective Patient is in bed and requests commode use. Objective Patient Orientation: Confused Problem Solving: Poor Attachments: Oxygen, IV ROM/Strength ROM Lower Extremities bilateral LE WFL Strength Lower Extremities 3+/5 grossly bilaterally Integumentary/Posture Integumentary refer to nursing notes Bowel Incontinence: Yes Bladder Incontinence: Yes Posture slightly kyphotic Sensory Vision: Functional Hearing: Hearing Aid/Aides Sensation Right Lower Extremit: Impaired Sensation Left Lower Extremity: Impaired Transfers Therapy Code Descriptions/Definitions Functional [place] Measure: 0=Not Assessed/NA 4=Minimal Assistance 1=Total Assistance 5=Supervision or Setup 2=Maximal Assistance 6=Modified [place] 3=Moderate Assistance 7=Complete [place] Transfers (B, C, W/C) (FIM): 3 Scootin Rollin Supine to/from Sit: 3 Sit to/from Stand: 3 Gait Mode of Locomotion: Both Anticipated Mode of Locomotion: Both Gait (FIM): 1 Distance (FIM): 1=up to 49 ft Distance: 5 steps Gait Level of Assist: 4 Gait Persons Needed: 1 Comments/Gait Description refused distance Balance Sitting Static: Fair Sitting Dynamic: Fair Standing Static: Fair Standing Dynamic: Fair Assessment/Needs 77 y.o. female, will be seen short term by skilled PT to address functional strength and mobility to improve current LOF. Rehab Potential: Guarded PT Chcf Goals Chcf Goals PT Chcf Goals Time Frame: Sep 09, 2018 Transfers (B,C,W/C) (FIM): 4 Gait (FIM): 1 Gait distance (FIM): 1=up to 49 ft Distance: 45' Gait Level of Assist: 4 Gait Assistive Device: FWW PT Plan Problem List Problem List: Activity Tolerance, Functional Strength, Safety, Balance, Gait, Transfer, Bed Mobility Treatment/Plan Treatment Plan: Continue Plan of Care Treatment Plan: Bed Mobility, Education, Functional Activity Lori, Functional Strength, Gait, Safety, Therapeutic Exercise, Transfers Treatment Duration: Sep 09, 2018 Frequency: 6 times per week Estimated Hrs Per Day: .25 hour per day Patient and/or Family Agrees t: Yes Discharge Recommendations Therapy D/C Recommendations: Snf Placement, Correction (TCU/NH) Time/GCodes Time In: 1535 Time Out: 1548 Total Billed Treatment Time: 13 Total Billed Treatment 1 visit EVMod 13 min JONATHAN BOO PT Sep 04, 2018 16:08
[2018-09-04 16:13] VITALS: BP 148/61
[2018-09-04] MEDS ORDERED: FLUTICASONE NASAL SPRAY (FLONASE) 16 GM BTL NS PRN (17:00)
[2018-09-04] MEDS: glipiZIDE 5 MG (GLUCOTROL) TAB PO SCH (17:16)
[2018-09-04] MEDS: GABAPENTIN 600 MG (NEURONTIN) TAB PO SCH ×2 (17:16→22:28)
[2018-09-04 20:44] VITALS: BP 141/84
[2018-09-04] MEDS ORDERED: NON-FORMULARY MEDICATION 1 EA EA (Gemfibrozil 600 MG) PO SCH (21:00)
[2018-09-04] MEDS: GEMFIBROZIL 600 MG (LOPID) TAB PO SCH (22:28)
[2018-09-04] MEDS: APIXABAN 5 MG (ELIQUIS) TABLET PO SCH (22:28)
[2018-09-04] MEDS: PRIMIDONE 50 MG TAB (MYSOLINE) PO SCH (22:28)
[2018-09-04] MEDS: MONTELUKAST 10 MG (SINGULAIR) TAB PO SCH (22:28)
[2018-09-04] MEDS: ALPRAZolam 0.5 MG (XANAX) TAB PO SCH (22:28)
[2018-09-05] VITALS: BP 125/70
[2018-09-05] MEDS: cefTRIAXone FOR IV USE 1,000 MG in WATER (STERILE) FOR INJECTION 10 ML IV SCH (02:38)
[2018-09-05 04:45] VITALS: BP 125/68
[2018-09-05 06:17] LABS: BASOPHILS % (AUTO) 1 % (0-10); EOSINOPHILS # (AUTO) 0.3 10^3/uL (0.0-0.3); EOSINOPHILS % (AUTO) 7 % (0-10); HEMATOCRIT 34 % (35-52); HEMOGLOBIN 10.9 G/DL (11.5-16.0); LYMPHOCYTES # (AUTO) 0.7 X 10^3 (1.0-4.0); LYMPHOCYTES % (AUTO) 17 % (12-44); MEAN CORPUSCULAR HEMOGLOBIN 31 PG (25-34); MEAN CORPUSCULAR HGB CONC 32 G/DL (32-36); MEAN CORPUSCULAR VOLUME 97 FL (80-99); MEAN PLATELET VOLUME 9.4 FL (7.4-10.4); MONOCYTES # (AUTO) 0.6 X 10^3 (0.0-1.0); MONOCYTES % (AUTO) 13 % (0-12); NEUTROPHILS # (AUTO) 2.7 X 10^3 (1.8-7.8); NEUTROPHILS % (AUTO) 63 % (42-75); PLATELET COUNT 212 10^3/uL (130-400); RED CELL DISTRIBUTION WIDTH 13.6 % (10.0-14.5); WHITE BLOOD COUNT 4.3 10^3/uL (4.3-11.0)
[2018-09-05 06:46] LABS: ALBUMIN 3.6 GM/DL (3.2-4.5); BILIRUBIN,TOTAL 0.1 MG/DL (0.1-1.0); CALCIUM 9.3 MG/DL (8.5-10.1); CREATININE SERUM 0.96 MG/DL (0.60-1.30); POTASSIUM 5.1 MMOL/L (3.6-5.0); TOTAL PROTEIN 6.5 GM/DL (6.4-8.2)
[2018-09-05] MEDS: glipiZIDE 5 MG (GLUCOTROL) TAB PO SCH ×2 (06:58→17:03)
[2018-09-05 08:00] VITALS: BP 122/71
[2018-09-05] MEDS: MULTIVIT W/MINERALS TAB (THERAGRAN M) PO SCH (08:04)
[2018-09-05] MEDS: GEMFIBROZIL 600 MG (LOPID) TAB PO SCH ×2 (08:04→20:49)
[2018-09-05] MEDS: CALCIUM CARBONATE 600 MG (CALCARB) TAB PO SCH (08:05)
[2018-09-05] MEDS: ASPIRIN E.C. 81 MG (ECOTRIN) TAB PO SCH (08:05)
[2018-09-05] MEDS: PRIMIDONE 50 MG TAB (MYSOLINE) PO SCH ×2 (08:05→20:48)
[2018-09-05] MEDS: ALLOPURINOL 100 MG (ZYLOPRIM) TAB PO SCH (08:05)
[2018-09-05] MEDS: VALSARTAN 80 MG (DIOVAN) TAB PO SCH (08:05)
[2018-09-05] MEDS: PANTOPRAZOLE 20 MG TABLET (PROTONIX) PO SCH (08:05)
[2018-09-05] MEDS: SERTRALINE 50 MG (ZOLOFT) TABLET PO SCH (08:06)
[2018-09-05] MEDS: NS IV 1000 ML 1,000 ML IV SCH (08:06)
[2018-09-05] MEDS: GABAPENTIN 600 MG (NEURONTIN) TAB PO SCH ×4 (08:06→20:49)
[2018-09-05] MEDS: ALPRAZolam 0.5 MG (XANAX) TAB PO SCH ×2 (08:06→20:49)
[2018-09-05] MEDS: APIXABAN 5 MG (ELIQUIS) TABLET PO SCH ×2 (08:06→20:48)
[2018-09-05] MEDS ORDERED: VALSARTAN 160 MG (DIOVAN) TABLET PO SCH (09:00)
[2018-09-05] MEDS ORDERED: OMEPRAZOLE 20 MG (PriLOSEC) CAP NON-FORMULARY PO SCH (09:00)
[2018-09-05] MEDS ORDERED: NON-FORMULARY MEDICATION 1 EA EA (Mirabegron (Myrbetriq) 25 MG) PO SCH (09:00)
[2018-09-05] MEDS ORDERED: NON-FORMULARY MEDICATION 1 EA EA (Allopurinol 100 MG) PO SCH (09:00)
--- NOTE | 2018-09-05 09:49 | Progress Note - Hospitalist ---
Subjective HPI/CC On Admission Date Seen by Provider: Sep 05, 2018 Time Seen by Provider: 09:30 CC: Weakness HPI: This is a 77yoWF mentally challenged lady who is known to me from multiple hospital stays about every other week, most recent was for a partial small bowel obstruction versus ileus. Who had returned home, maintained on clear liquid diet even though no restriction of diet was ordered at my DC papers who presented with weakness found to have Sodium level of 126, Potassium of 5.4. She will be placed on fluid restriction and normal Saline maintained of 75cc per hour and pt is deeply sleeping at this current time and unable to get any reliable details from her. PT and OT will be ordered along with her home medications. Objective Exam Vital Signs Vital Signs Date Time Temp Pulse Resp B/P (MAP) Pulse Ox O2 Delivery O2 Flow Rate FiO2 09/05/18 16:11 97.3 57 20 136/61 (86) 93 Room Air 09/04/18 20:00 0.50 09/04/18 08:28 21 Capillary Refill : Less Than 3 Seconds General Appearance: No Apparent Distress, WD/WN, Chronically ill HEENT: PERRL/EOMI, Normal ENT Inspection, Pharynx Normal, Moist Mucous Membranes Neck: Full Range of Motion, Normal Inspection, Non Tender Respiratory: Chest Non Tender, Lungs Clear, Normal Breath Sounds, No Accessory Muscle Use, No Respiratory Distress Cardiovascular: Regular Rate, Rhythm, No Edema, No Gallop, No JVD, No Murmur, Normal Peripheral Pulses Gastrointestinal: Normal Bowel Sounds, No Organomegaly, No Pulsatile Mass, Non Tender, Soft Back: Normal Inspection, No CVA Tenderness, No Vertebral Tenderness Extremity: Normal Capillary Refill, Normal Inspection, Normal Range of Motion, Non Tender, No Calf Tenderness, No Pedal Edema Neurologic/Psychiatric: Alert, Oriented x3, No Motor/Sensory Deficits, Normal Mood/Affect Skin: Normal Color, Warm/Dry Lymphatic: No Adenopathy Results/Procedures Lab Laboratory Tests 09/05/18 05:45 Patient resulted labs reviewed. Assessment/Plan Assessment and Plan Assess & Plan/Chief Complaint Assessment: Hyponatremia resolved s/p ileus 10 days ago had resolved h/o Pulmonary embolism on OAC Non-insulin dependent type 2 diabetes mellitus Breast cancer in female Mentally challenged O2 dependent Epistaxis consulting Dr Acosta because she needs OAC due to DVT/PE Plan: PT/OT IVFHL Fluid restriction PT/OT Dr Acosta appreciated Diagnosis/Problems Diagnosis/Problems (1) Hyponatremia Status: Acute (2) Weakness Status: Acute (3) Dehydration Status: Acute (4) Breast cancer in female Status: Chronic Qualifiers: Breast location: unspecified site of breast Estrogen receptor status: unspecified Laterality: unspecified laterality Qualified Codes: C50.919 - Malignant neoplasm of unspecified site of unspecified female breast (5) Non-insulin dependent type 2 diabetes mellitus Status: Chronic (6) Pulmonary embolism Status: Chronic Qualifiers: Pulmonary embolism type: unspecified Chronicity: unspecified Acute cor pulmonale presence: without acute cor pulmonale Qualified Codes: I26.99 - Other pulmonary embolism without acute cor pulmonale (7) Epistaxis Status: Acute Clinical Quality Measures DVT/VTE Risk/Contraindication: Risk Factor Score Per Nursin RFS Level Per Nursing on Admit: 4+=Very High BRIANNA HERNANDEZ DO Sep 05, 2018 09:49
--- NOTE | 2018-09-05 10:07 | Physical Therapy Daily Note ---
PT Daily Note-Current Subjective Patient is very alert and cheerful on this date. Agrees to PT. Pain Numeric Pain Scale: 0-No Pain Location: No Pain Reported Mental Status Patient Orientation: Person, Time Attachments: IV Transfers Therapy Code Descriptions/Definitions Functional [place] Measure: 0=Not Assessed/NA 4=Minimal Assistance 1=Total Assistance 5=Supervision or Setup 2=Maximal Assistance 6=Modified [place] 3=Moderate Assistance 7=Complete [place] Therapy Quality Codes: 6 Independent with activity with or without an assistive device 5 Patient requires set up or clean up by helper. Patient completes activity by themselves 4 Supervision or touching assist (CGA). [place] provide cues , steadying assist 3 The helper provides less than half the effort to complete the activity 2 The helper provides more than half the effort to complete the activity 1 Dependent. The helper does all the effort to complete an activity 7 Patient refused to complete or attempt activity 9 The patient did not perform the activity before the current illness or injury 88 Not attempted due to Medical conditions or safety concerns Transfers (B, C, W/C) (FIM): 4 Scootin Sit to/from Stand: 4 Gait Training Gait (FIM): 2 Distance (FIM): 8=597-36 ft Distance: 110' Gait Level of Assist: 5 Gait Persons Needed: 1 Gait Assistive Device: FWW very slow, steady gait sequence with FWW. Exercises Seated Therapy Exercises: Ankle pumps, Long arc quads, Hip flexion Seated Reps: 15 Assessment Patient voices she desires to return to home with caregivers. Patient tolerated treatment well and remained up in recliner with needs met. PT Long-Term Goals Long-Term Goals PT Long-Term Goals Time Frame: Sep 09, 2018 Transfers (B,C,W/C) (FIM): 4 Gait (FIM): 1 Gait distance (FIM): 1=up to 49 ft Distance: 45' Gait Level of Assist: 4 Gait Assistive Device: FWW PT Plan Treatment/Plan Treatment Plan: Continue Plan of Care Treatment Plan: Bed Mobility, Education, Functional Activity Lori, Functional Strength, Gait, Safety, Therapeutic Exercise, Transfers Treatment Duration: Sep 09, 2018 Frequency: 6 times per week Estimated Hrs Per Day: .25 hour per day Patient and/or Family Agrees t: Yes Time/GCodes Time In: 923 Time Out: 935 Total Billed Treatment Time: 12 Total Billed Treatment 1 visit FA 12 min JONATHAN BOO PT Sep 05, 2018 10:07
[2018-09-05 12:00] VITALS: BP 129/70
--- NOTE | 2018-09-05 13:19 | Occupational Therapy Eval ---
OT Evaluation-General/PLF Medical Diagnosis Admission Date Sep 04, 2018 at 09:49 Medical Diagnosis: UTI/dehydration/weakness Onset Date: Sep 04, 2018 Therapy Diagnosis Therapy Diagnosis: debility Height/Weight Height (Feet): 4 Height (Inches): 11.00 Weight (Pounds): 150 Weight (Ounces): 4.2 Precautions Precautions/Isolations: Fall Prevention, Standard Precautions Safety Interventions: Bed Exit Alarm, Move Closer to Desk Referral Physician: Renetta Medical History Pertinent Medical History: Arthritis, DM, HTN, Neuropathy Additional Medical History high cholesterol, GI bleed, SBO, breast cancer, anxiety Reviewed History: Yes Social History Home: Long-Term ADL-Prior Level of Function Therapy Code Descriptions/Definitions Functional [place] Measure: 0=Not Assessed/NA 4=Minimal Assistance 1=Total Assistance 5=Supervision or Setup 2=Maximal Assistance 6=Modified [place] 3=Moderate Assistance 7=Complete [place] Therapy Quality Codes: 6 Independent with activity with or without an assistive device 5 Patient requires set up or clean up by helper. Patient completes activity by themselves 4 Supervision or touching assist (CGA). [place] provide cues , steadying assist 3 The helper provides less than half the effort to complete the activity 2 The helper provides more than half the effort to complete the activity 1 Dependent. The helper does all the effort to complete an activity 7 Patient refused to complete or attempt activity 9 The patient did not perform the activity before the current illness or injury 88 Not attempted due to Medical conditions or safety concerns Functional Abilities and Goals: Independent: Patient completed the activities by him/herself, with or without an assistive device, with no assistance from a helper. Needed Some Help: Patient needed partial assistance from another person to complete activities. Dependent: A helper completed the activities for the patient. Unknown: Not Applicable: ADL PLOF Comments Pt reports living at home with caregivers. Pt states she is able to feed herself and complete grooming. Has some assist for bathing, dressing, and toileting. Pt reports using walker or w/c for mobility. Self Care: Needed Some Help DME/Equipment: Bath Chair, Bedside Commode, Grab Bars, Shower OT Current Status Subjective Pt sitting in chair, agrees to therapy. Mental Status/Objective Patient Orientation: Person Current Hand Dominance: Right Upper Extremity ROM decreased finger extension Upper Extremity Coordination Fair ADL-Treatment ADL-Current Pt completed grooming tasks while seated in chair. Washed face with SBA. Min assist to comb hair. Pt requests to use BSC. Sit to and transfer to BSC with minimal assistance with FWW and cues for safety. Pt requires assist for toileting hygiene and clothing management. Pt sitting in chair with needs met after session. Therapy Code Descriptions/Definitions Functional [place] Measure: 0=Not Assessed/NA 4=Minimal Assistance 1=Total Assistance 5=Supervision or Setup 2=Maximal Assistance 6=Modified [place] 3=Moderate Assistance 7=Complete [place] Therapy Quality Codes: 6 Independent with activity with or without an assistive device 5 Patient requires set up or clean up by helper. Patient completes activity by themselves 4 Supervision or touching assist (CGA). [place] provide cues , steadying assist 3 The helper provides less than half the effort to complete the activity 2 The helper provides more than half the effort to complete the activity 1 Dependent. The helper does all the effort to complete an activity 7 Patient refused to complete or attempt activity 9 The patient did not perform the activity before the current illness or injury 88 Not attempted due to Medical conditions or safety concerns Grooming (FIM): 4 Toileting (FIM): 2 Toilet/Commode Transfer (FIM): 4 Education OT Patient Education: Rehab process Teaching Recipient: Patient Teaching Methods: Discussion Response to Teaching: Verbalize Understanding, Reinforcement Needed OT Short Term Goals Short Term Goals 1=Demonstrate adherence to instructed precautions during ADL tasks. 2=Patient will verbalize/demonstrate understanding of assistive dev ices/modifications for ADL. 3=Patient will improve strength/tolerance for activity to enable patient to perform ADL's. OT Fpc Goals Fpc Goals Time Frame: Sep 15, 2018 Grooming(FIM): 5 Upper Body Dressing(FIM): 5 Toileting(FIM): 4 Toilet/Commode Transfer(FIM): 4 (CGA) Additional Goals: 1-Demonstrate ADL Tasks, 2-Verbalize Understanding, 3-Impro veStrength/Lori 1=Demonstrate adherence to instructed precautions during ADL tasks. 2=Patient will verbalize/demonstrate understanding of assistive devices/modifications for ADL. 3=Patient will improve strength/tolerance for activity to enable patient to perform ADL's. OT Education/Plan Problem List/Assessment Assessment: Decreased Activ Tolerance, Decreased Safety Aware, Decreased UE Strength, Dependent Transfers, Impaired Self-Care Skills Pt to benefit from skilled OT while hospitalized to maximize level of independence and decrease caregiver burden. Discharge Recommendations Plan/Recommendations: Continue POC Treatment Plan/Plan of Care Treatment,Training & Education: Yes Patient would benefit from OT for education, treatment and training to promote independence in ADL's, mobility, safety and/or upper extremity function for ADL's. Plan of Care: ADL Retraining, Functional Mobility, UE Funct Exercise/Act Treatment Duration: Sep 15, 2018 Frequency: 5 times per week Estimated Hrs Per Day: .25 hour per day Rehab Potential: Guarded Time/GCodes Start Time: 09:52 Stop Time: 10:18 Total Time Billed (hr/min): 26 Billed Treatment Time 1 visit, EVM(10minutes), ADL(16minutes) ANNALISA CRAFT OT Sep 05, 2018 13:19
[2018-09-05 16:11] VITALS: BP 136/61
[2018-09-05 19:53] VITALS: BP 136/60
[2018-09-05] MEDS: MONTELUKAST 10 MG (SINGULAIR) TAB PO SCH (20:48)
[2018-09-06 00:06] VITALS: BP 135/63
[2018-09-06] MEDS: cefTRIAXone FOR IV USE 1,000 MG in WATER (STERILE) FOR INJECTION 10 ML IV SCH (02:59)
[2018-09-06 04:25] VITALS: BP 160/65
[2018-09-06] MEDS: glipiZIDE 5 MG (GLUCOTROL) TAB PO SCH (05:33)
[2018-09-06 06:09] LABS: BASOPHILS # (AUTO) 0.1 10^3/uL (0.0-0.1); BASOPHILS % (AUTO) 1 % (0-10); EOSINOPHILS # (AUTO) 0.4 10^3/uL (0.0-0.3); EOSINOPHILS % (AUTO) 6 % (0-10); HEMATOCRIT 36 % (35-52); HEMOGLOBIN 11.5 G/DL (11.5-16.0); LYMPHOCYTES # (AUTO) 1.8 X 10^3 (1.0-4.0); LYMPHOCYTES % (AUTO) 32 % (12-44); MEAN CORPUSCULAR HEMOGLOBIN 31 PG (25-34); MEAN CORPUSCULAR HGB CONC 32 G/DL (32-36); MEAN CORPUSCULAR VOLUME 97 FL (80-99); MEAN PLATELET VOLUME 9.2 FL (7.4-10.4); MONOCYTES # (AUTO) 0.7 X 10^3 (0.0-1.0); MONOCYTES % (AUTO) 12 % (0-12); NEUTROPHILS # (AUTO) 2.7 X 10^3 (1.8-7.8); NEUTROPHILS % (AUTO) 49 % (42-75); PLATELET COUNT 214 10^3/uL (130-400); RED CELL DISTRIBUTION WIDTH 13.8 % (10.0-14.5); WHITE BLOOD COUNT 5.6 10^3/uL (4.3-11.0)
[2018-09-06 06:27] LABS: ALANINE AMINOTRANSFERASE 19 U/L (0-55); ALBUMIN 3.8 GM/DL (3.2-4.5); ALKALINE PHOSPHATASE 78 U/L (40-136); BILIRUBIN,TOTAL 0.1 MG/DL (0.1-1.0); BUN/CREATININE RATIO 21; CALCIUM 9.9 MG/DL (8.5-10.1); CARBON DIOXIDE 21 MMOL/L (21-32); CHLORIDE 103 MMOL/L (98-107); CREATININE SERUM 0.81 MG/DL (0.60-1.30); GFR ESTIMATED > 60; GLUCOSE 82 MG/DL (70-105); POTASSIUM 5.5 MMOL/L (3.6-5.0); SODIUM 136 MMOL/L (135-145); TOTAL PROTEIN 7.1 GM/DL (6.4-8.2)
--- NOTE | 2018-09-06 07:24 | CONSULTATION REPORT ---
DATE OF SERVICE: 09/06/2018 ROOM: 415. REASON FOR CONSULT: Left-sided epistaxis. REFERRING PHYSICIAN: Dr. Jackson. HISTORY OF PRESENT ILLNESS: The patient had a small anterior nosebleed last night. At that time, she was wearing oxygen. She is on Eliquis. She is well known to us that she has had recurrent epistaxis in the past. She is on the Eliquis for a blood thinning purpose because of the blood clots. PHYSICAL EXAM: Today a directed physical exam was done. Nose: External nose is normal. She is no longer is wearing oxygen. Intranasally, the right side was clear. On the left side, she had a small amount of old blood in the anterior and Kiesselbach's area. There was no blood seen posterior within the nose. Oral cavity was clear. There was no blood seen in the posterior pharynx. The neck was negative to palpation. ASSESSMENT: 1. Mild left anterior epistaxis. 2. Eliquis anticoagulation. RECOMMENDATIONS: Findings were discussed with her and her nurse. She was started on a nasal saline gel to be applied to the inside of the nose as especially at night, she does. The patient already has some of this at home as well. If she has recurrent problems in the future then she knows to call, so we can see and reevaluate her. Keeping the nose moist will do the for this to help prevent the nosebleeds. Job ID: [id number] DocumentID: [id number] Dictated Date: 09/06/2018 07:06:44 Equipment Cleaner And Tester Date: 09/06/2018 07:23:45 Dictated By: MARYANN PENG MD
[2018-09-06 08:00] VITALS: BP 149/51
--- NOTE | 2018-09-06 08:07 | Physician Query Clarification ---
PQ-Uncertain Diagnosis Admission/Discharge Admission Date: Sep 04, 2018 at 09:49 Discharge Date: The medical record reflects the following clinical scenario: History/Risk Factors: Dehydration Clinical Findings: Urinary incontinence, Ur specific gravity <1.005, Urine [id number] Esterase 3+, Urine RBC(auto)trace, Urine WBC>100, Urine bacteria Moderate. 09/04 culture>100,000/ML Gram Negative Bacillus. Treatment: IV Rocephin. Question: Is UTI due to Gram Negative Bacillus a clinically valid diagnosis? UTI was documented in the ED record impression by Dr. Lorri Reed DO with no further documentation in the medical record. Please document a response in Progress Note or Discharge Summary. 1. Yes, clinically valid, condition resolved. 2. No, condition ruled out. 3. Other, with explanation of clinical findings. 4. Undetermined, no explanation for clinical findings. PHYSICIAN RESPONSE Diagnosis clinically valid: Yes, Conditon resolved Please remember a lack of response to the above will prompt a phone page by CDI/Coding staff. In responding to this query, please exercise your independent professional judgment. The purpose of this communication is to more accurately reflect the complexity of your patients condition. The fact that a question is asked does not imply that any particular answer is desired or expected. Thank you for your timely response to this clarification. Requestors name: Vee Arguelles [facility] Phone # ext [phone] or [phone] THIS PHYSICIAN QUERY FORM IS A PERMANENT PART OF THE MEDICAL RECORD VEE ARGUELLES Sep 06, 2018 08:07 BRIANNA HERNANDEZ DO Sep 06, 2018 14:38
[2018-09-06] MEDS: MULTIVIT W/MINERALS TAB (THERAGRAN M) PO SCH (08:47)
[2018-09-06] MEDS: GEMFIBROZIL 600 MG (LOPID) TAB PO SCH (08:47)
[2018-09-06] MEDS: SERTRALINE 50 MG (ZOLOFT) TABLET PO SCH (08:48)
[2018-09-06] MEDS: CALCIUM CARBONATE 600 MG (CALCARB) TAB PO SCH (08:48)
[2018-09-06] MEDS: VALSARTAN 80 MG (DIOVAN) TAB PO SCH (08:48)
[2018-09-06] MEDS: GABAPENTIN 600 MG (NEURONTIN) TAB PO SCH ×2 (08:48→13:30)
[2018-09-06] MEDS: APIXABAN 5 MG (ELIQUIS) TABLET PO SCH (08:48)
[2018-09-06] MEDS: PRIMIDONE 50 MG TAB (MYSOLINE) PO SCH (08:49)
[2018-09-06] MEDS: PANTOPRAZOLE 20 MG TABLET (PROTONIX) PO SCH (08:49)
[2018-09-06] MEDS: ALLOPURINOL 100 MG (ZYLOPRIM) TAB PO SCH (08:49)
[2018-09-06] MEDS: ASPIRIN E.C. 81 MG (ECOTRIN) TAB PO SCH (08:49)
[2018-09-06] MEDS: ALPRAZolam 0.5 MG (XANAX) TAB PO SCH (08:49)
--- NOTE | 2018-09-06 08:56 | NUR ---
CM/SS, discharge planning. IN-HOME SERVICES: Patient plan is to return home as before with in-home services through [facility]. They should be called as soon as discharge date is confirmed so they can activate the teams who care for her. They generally transport. Mechanical Door Repairer Brendan, [place]: [phone] or office [phone]. [facility]: Patient is established with [facility] and these services should be resumed. [employer] has spoken with her RN/Sara. Please call office directly [phone] to update of discharge and fax orders directly there at FAX [phone] per Sara's request. Please call her YASMINE Jazzy Iniguez to inform her that patient has discharged and is returning home.
[2018-09-06] MEDS ORDERED: SODI14.12 TP (10:25)
--- NOTE | 2018-09-06 10:27 | Discharge Summary ---
Diagnosis/Chief Complaint Date of Admission Sep 04, 2018 at 09:49 Date of Discharge Discharge Date: Sep 06, 2018 Admission Diagnosis Assessment: Hyponatremia s/p ileus 10 days ago had resolved h/o Pulmonary embolism on OAC Non-insulin dependent type 2 diabetes mellitus Breast cancer in female Mentally challenged O2 dependent Plan: PT/OT IVF Fluid restriction Discharge Diagnosis (1) Hyponatremia Status: Acute (2) Weakness Status: Acute (3) Dehydration Status: Acute (4) Breast cancer in female Status: Chronic (5) Non-insulin dependent type 2 diabetes mellitus Status: Chronic (6) Pulmonary embolism Status: Chronic (7) Epistaxis Status: Acute Discharge Summary Discharge Physical Exam Allergies: Coded Allergies: No Known Drug Allergies (Unverified , 06/11/18) Vitals & I&Os Vital Signs Date Time Temp Pulse Resp B/P (MAP) Pulse Ox O2 Delivery O2 Flow Rate FiO2 09/06/18 15:30 09/06/18 12:00 97.6 76 20 95 Room Air 09/04/18 20:00 0.50 09/04/18 08:28 21 General Appearance: No Apparent Distress, WD/WN, Chronically ill Respiratory: Chest Non Tender, Lungs Clear, Normal Breath Sounds, No Accessory Muscle Use, No Respiratory Distress Cardiovascular: Regular Rate, Rhythm, No Edema, No Gallop, No JVD, No Murmur, Normal Peripheral Pulses Neurologic/Psychiatric: Alert, Oriented x3, No Motor/Sensory Deficits, Normal Mood/Affect, provider relations representative II-XII Norm as Tested, Other (mentally challenged) Hospital Course Was the Problem List Reviewed?: Yes Hospital course; Pt had an uneventful hospital course after being admitted for severe weakness sodium level 126 pt was placed on fluid restriction normal saline IV fluids and restarted all of her home medications. Shes been maintained on a clear liquid diet ever since she left a 2 weeks ago when she had a small bowel obstruction vs Ileus so she was restarted on her regular diet sodium level returned back to normal at time of discharge. Epistaxis was managed with Dr. Acosta and overall recommended a moisturizing gel because oxygen was drying out her turbinates and she was restarted on her oral anticoagulation for the recent DVT PE that she had 3 months ago. At this time pt is ready and agreeable for discharge with home health with PT, OT, and nursing. Labs (last 24 hrs) Laboratory Tests 09/06/18 06:00: White Blood Count 5.6, Red Blood Count 3.73L, Hemoglobin 11.5, Hematocrit 36, Mean Corpuscular Volume 97, Mean Corpuscular Hemoglobin 31, Mean Corpuscular Hemoglobin Concent 32, Red Cell Distribution Width 13.8, Platelet Count 214, Mean Platelet Volume 9.2, Neutrophils (%) (Auto) 49, Lymphocytes (%) (Auto) 32, Monocytes (%) (Auto) 12, Eosinophils (%) (Auto) 6, Basophils (%) (Auto) 1, Neutrophils # (Auto) 2.7, Lymphocytes # (Auto) 1.8, Monocytes # (Auto) 0.7, Eosinophils # (Auto) 0.4H, Basophils # (Auto) 0.1, Sodium Level 136, Potassium Level 5.5H, Chloride Level 103, Carbon Dioxide Level 21, Anion Gap 12, Blood Urea Nitrogen 17, Creatinine 0.81, Estimat Glomerular Filtration Rate > 60, BUN/Creatinine Ratio 21, Glucose Level 82, Calcium Level 9.9, Corrected Calcium 10.1, Total Bilirubin 0.1, Aspartate Amino Transf (AST/SGOT) 16, Alanine Aminotransferase (ALT/SGPT) 19, Alkaline Phosphatase 78, Total Protein 7.1, Albumin 3.8 Microbiology 09/04/18 Blood Culture - Preliminary, Resulted No growth 09/04/18 Urine Culture - Final, Complete Escherichia coli Patient resulted labs reviewed. Pending Labs Discussion & Recommendations Discharge Planning: <30 minutes discharge planning Discharge Home Medications: Active Scripts Active [place] Saline Nasal Gel (Sodium Chloride/Aloe Vera) 14.1 Gm Gel..gram. 14.1 Gm TP 5XD Tramadol HCl 50 Mg Tablet 50 Mg PO Q6H PRN Reported Fluticasone Propionate 16 Gm [place].susp 2 Sprays NS DAILY PRN Eliquis (Apixaban) 5 Mg Tablet 5 Mg PO BID Mysoline (Primidone) 50 Mg Tablet 100 Mg PO BID TAKES 2 (50MG) TABLETS Multivitamins (Multivitamin) 1 Each Tablet 1 Tab PO DAILY Montelukast Sodium 10 Mg Tablet 10 Mg PO HS Glipizide 5 Mg Tablet 5 Mg PO BID Aspirin EC (Aspirin) 81 Mg Tablet.dr 81 Mg PO DAILY Calcium (Calcium Carbonate) 600 Mg Tablet 600 Mg PO DAILY Sertraline HCl 50 Mg Tablet 50 Mg PO DAILY Myrbetriq (Mirabegron) 25 Mg Tab.er.24h 25 Mg PO DAILY Valsartan 160 Mg Tablet 80 Mg PO DAILY TAKES 1/2 (160MG) TABLET Gabapentin 600 Mg Tablet 600 Mg PO QID Gemfibrozil 600 Mg Tablet 600 Mg PO BID Alprazolam 0.5 Mg Tablet 0.5 Mg PO BID Omeprazole 20 Mg Capsule.dr 20 Mg PO DAILY Allopurinol 100 Mg Tablet 100 Mg PO DAILY Instructions to patient/family Please see electronic discharge instructions given to patient. Clinical Quality Measures DVT/VTE Risk/Contraindication: Risk Factor Score Per Nursin RFS Level Per Nursing on Admit: 4+=Very High Problem Qualifiers (1) Breast cancer in female: Breast location: unspecified site of breast Estrogen receptor status: unspecified Laterality: unspecified laterality Qualified Codes: C50.919 - Malignant neoplasm of unspecified site of unspecified female breast (2) Pulmonary embolism: Pulmonary embolism type: unspecified Chronicity: unspecified Acute cor pulmonale presence: without acute cor pulmonale Qualified Codes: I26.99 - Other pulmonary embolism without acute cor pulmonale BRIANNA HERNANDEZ DO Sep 06, 2018 10:27
--- NOTE | 2018-09-06 10:27 | D/C HH Face to Face Order ---
D/C Face to Face Orders Reconcile Patient Problems Problems Reviewed?: Yes Instructions for Patient Via [facility], Patient Instructions/FollowUp: [facility] 1 week Physician to follow Patient: [facility] Discharge Diet for Home: No Restrictions Patient Problems: Hyponatremia Epistaxis Patient Data-Allergies,Ht & Wt Patient Allergies: Coded Allergies: No Known Drug Allergies (Unverified , 06/11/18) Height (Feet): 4 Height (Inches): 11.00 Weight (Pounds): 150 Weight (Ounces): 4.2 Home Health Need/Face to Face Date of Face to Face: Sep 06, 2018 Clinical Findings: Generalized weakness and fatigue I have seen Pt [id number]: Yes Discharged To: Home Diagnosis/Conditions: Hyponatremia Epistaxis Patient is Homebound due to: CognItive deficits, Marika fall risk due to instabilty, Pain w/ambulation Homebound Status Due to the above stated illness, injury or surgical procedure (medical condition or diagnosis) and associated clinical findings, the patient is homebound because of his/her inability to leave home except with aid of a supportive device and/or person AND leaving the home requires a considerable and taxing effort or is medically contraindicated. Pt req the following assistanc: Aid of another person, Walker Home Health Nursing Orders Home Health Services Order: Nursing Services, Show Design Supervisor-Evaluate & Treat, Physical Therapy-Evaluate & Treat Home Health Infusion Therapy Line Start Date: Sep 04, 2018 Certify Stmt I certify that this patient is under my care and that I, a nurse practitioner or a physician; a geological survey field assistant working with me, had a face to face encounter that - meets the physician face to face encounter requirements with this patient as dated. BRIANNA HERNANDEZ DO Sep 06, 2018 10:27
--- NOTE | 2018-09-06 11:24 | Occupational Ther Daily Note ---
OT Current Status-Daily Note Subjective Pt sleeping in bed, woke to touch. Pt agrees to therapy. No c/o pain at this time. Hard of Hearing. Mental Status/Objective Patient Orientation: Person, Place, Time, Situation Therapy Code Descriptions/Definitions Functional [place] Measure: 0=Not Assessed/NA 4=Minimal Assistance 1=Total Assistance 5=Supervision or Setup 2=Maximal Assistance 6=Modified [place] 3=Moderate Assistance 7=Complete [place] ADL-Treatment Pt agrees to therapy. Pt has arthritis throughout body and it is difficult for pt to grasp items. Pt able to manipulate clothing, requires assist for hygiene. Pt able to wash upper body after setup. Pt requires total assist to complete lower body ADLs. Pt transfers with CGA using FWW. Pt takes increased time to complete tasks. Nrsg notified that pt was in chair after therapy, dressing requires changing and to apply telemetry. After therapy, pt sitting in recliner with call light/phone in reach. All needs met in room. Bathing (FIM): 2 Bathing Location: L Arm, R Arm, Chest, Abdomen Upper Body (FIM): 4 (Using hospital gown, pt able to tobacco sample puller head and thread arms.) Lower Body Dressing (FIM): 2 Toileting (FIM): 2 Transfers (B, C, W/C) (FIM): 4 Toilet/Commode Transfer (FIM): 4 Shower Transfer(FIM): 4 OT Short Term Goals Short Term Goals 1=Demonstrate adherence to instructed precautions during ADL tasks. 2=Patient will verbalize/demonstrate understanding of assistive devices/modifications for ADL. 3=Patient will improve strength/tolerance for activity to enable patient to perform ADL's. OT Jail Goals Tower Watchman Goals Time Frame: Sep 15, 2018 Grooming(FIM): 5 Upper Body Dressing(FIM): 5 Toileting(FIM): 4 Toilet/Commode Transfer(FIM): 4 (CGA) Additional Goals: 1-Demonstrate ADL Tasks, 2-Verbalize Understanding, 3- ImproveStrength/Lori 1=Demonstrate adherence to instructed precautions during ADL tasks. 2=Patient will verbalize/demonstrate understanding of assistive devices/modifications for ADL. 3=Patient will improve strength/tolerance for activity to enable patient to perform ADL's. OT Education/Plan Problem List/Assessment Assessment: Decreased Activ Tolerance, Impaired Coordination, Impaired Self- Care Skills, Restricted Funct UE ROM Pt to benefit from skilled OT while hospitalized to maximize level of independence and decrease caregiver burden. Discharge Recommendations Plan/Recommendations: Continue POC Treatment Plan/Plan of Care Patient would benefit from OT for education, treatment and training to promote independence in ADL's, mobility, safety and/or upper extremity function for ADL's. Plan of Care: ADL Retraining, Functional Mobility, UE Funct Exercise/Act Treatment Duration: Sep 15, 2018 Frequency: 5 times per week Estimated Hrs Per Day: .25 hour per day Rehab Potential: Guarded Time/GCodes Start Time: 10:10 Stop Time: 11:10 Total Time Billed (hr/min): 60 Billed Treatment Time 1 visit-ADL 4 (60 min) KENYATTA JUSTICE Sep 06, 2018 11:24
--- NOTE | 2018-09-06 11:27 | NUR ---
[facility] called and they will transport this day at . Discharge information faxed to [facility]. Sara GUY with [facility] not available and call back info left for her.
[2018-09-06 12:00] VITALS: BP 114/70
== END 2018-09-06 15:23 | disposition home health service (06) | DRG 641 ==
LOC: EDUNIT# 00:55 → ER FS 01:00 → UNDOADMOB 02:37 → 4TH 02:37 → OBSVTOIN 09:45 → INTOOBSV 09:49 → 4TH 14:32 → UNDODISIN 09-06 15:23
PROVIDERS: ADMIT Internal Medicine; ATTEND Internal Medicine
DX: E87.1 Hypo-osmolality and hyponatremia (principal); N39.0 Urinary tract infection, site not specified; B96.20 Unspecified Escherichia coli [E. coli] as the cause of diseases classified elsewhere; E86.0 Dehydration; R53.1 Weakness; F79 Unspecified intellectual disabilities; G61.0 Guillain-Barre syndrome; E11.9 Type 2 diabetes mellitus without complications; R04.0 Epistaxis; I10 Essential (primary) hypertension; G47.30 Sleep apnea, unspecified; E78.00 Pure hypercholesterolemia, unspecified; R32 Unspecified urinary incontinence; R26.9 Unspecified abnormalities of gait and mobility; G25.81 Restless legs syndrome; F41.9 Anxiety disorder, unspecified; M19.91 Primary osteoarthritis, unspecified site; H91.93 Unspecified hearing loss, bilateral; Z86.711 Personal history of pulmonary embolism; Z79.01 Long term (current) use of anticoagulants; Z85.3 Personal history of malignant neoplasm of breast; Z92.21 Personal history of antineoplastic chemotherapy; Z92.3 Personal history of irradiation; Z99.81 Dependence on supplemental oxygen; Z97.4 Presence of external hearing-aid
CPT/HCPCS: 36415; 80048; 80053; 81000; 82962; 85007; 85025; 85027; 87040; 87077; 87088; 87186; 94760; 96374; G0378

== ENCOUNTER → 2018-10-12 | Outpatient (CLI) | payer MEDICARE, MEDICAID ==
[~2018-10-12] MED LIST changes: -OMEP20CA12 PO; +OMEP20CA13 PO; +SODI14.12 TP; +SULF-222 PO
== END ==
LOC: WOUNDCARE 08:07
PROVIDERS: ATTEND Nurse Practitioner
DX: E11.622 Type 2 diabetes mellitus with other skin ulcer (principal); E11.52 Type 2 diabetes mellitus with diabetic peripheral angiopathy with gangrene; L97.421 Non-pressure chronic ulcer of left heel and midfoot limited to breakdown of skin; I96 Gangrene, not elsewhere classified
CPT/HCPCS: 99214

== ENCOUNTER → 2018-10-19 | Outpatient (CLI) | payer MEDICARE, MEDICAID | LOC: WOUNDCARE 07:58 | PROVIDERS: ATTEND Nurse Practitioner | DX: L97.421 Non-pressure chronic ulcer of left heel and midfoot limited to breakdown of skin (principal); E11.622 Type 2 diabetes mellitus with other skin ulcer | CPT/HCPCS: 99213 ==

== ENCOUNTER → 2018-11-15 | Outpatient (CLI) | payer MEDICARE, MEDICAID ==
--- NOTE | 2018-11-15 15:12 | Diagnostic Imaging Report ---
PROCEDURE: MR imaging left lower extremity without contrast. TECHNIQUE: Multiplanar, multisequence non contrast enhanced MR imaging of the left lower extremity was accomplished. INDICATION: Osteomyelitis in the 5th metatarsal COMPARISON: Radiographs from 06/11/2018 FINDINGS: There is motion artifact on multiple sequences. There are mild degenerative changes seen in the forefoot. No significant bone marrow edema or T1-weighted marrow replacement is seen. No joint effusions are seen. There is moderate generalized muscular atrophy and mild edema, may be due to neuropathic changes. There is soft tissue edema at the lateral aspect of the 5th metatarsal base, with an overlying skin blister measuring 2.9 cm in length and approximately 2.2 cm craniocaudal. The extensor and flexor tendons are unremarkable. IMPRESSION: 1. No findings of osteomyelitis in the left foot. 2. Focal soft tissue edema and large blister lateral to the 5th metatarsal base. Dictated by: Dictated on workstation # [id number]
== END ==
LOC: RAD 13:37
PROVIDERS: ATTEND Orthopaedic Surgery
DX: M86.672 Other chronic osteomyelitis, left ankle and foot (principal); S90.822A Blister (nonthermal), left foot, initial encounter; M79.89 Other specified soft tissue disorders

== ENCOUNTER 2019-01-01 07:56 | Emergency (ER) | payer MEDICARE, MEDICAID ==
[~2019-01-01] VITALS: Ht 149 cm; Wt 68.6 kg
[2019-01-01] MEDS ORDERED: PHENYLEPHRINE 0.25% NASAL SPR (NEO-SYNEPHRINE) 15 ML NS ONE (07:59)
--- NOTE | 2019-01-01 08:05 | ED EENT ---
History of Present Illness General Stated Complaint: EPISTAXIS Source: EMS History of Present Illness Date Seen by Provider: Jan 01, 2019 Time Seen by Provider: 08:02 Initial Comments 78-year-old female brought in due to a nosebleed. It started at approximately 4 AM. Patient has had issues with nosebleeds in the past and has had her nose cauterized. Patient is on Eliquis. No other complaints at this time. Allergies and Home Medications Allergies Coded Allergies: No Known Drug Allergies (Unverified , 06/11/18) Home Medications Allopurinol 100 Mg Tablet, 100 MG PO DAILY, (Reported) Alprazolam 0.5 Mg Tablet, 0.5 MG PO BID, (Reported) Apixaban 5 Mg Tablet, 5 MG PO BID, (Reported) Aspirin 81 Mg Tablet.dr, 81 MG PO DAILY, (Reported) Calcium Carbonate 600 Mg Tablet, 600 MG PO DAILY, (Reported) Fluticasone Propionate 16 Gm [place].susp, 2 SPRAYS NS DAILY PRN for ALLERGIES, (Reported) Gabapentin 600 Mg Tablet, 600 MG PO QID, (Reported) Gemfibrozil 600 Mg Tablet, 600 MG PO BID, (Reported) Glipizide 5 Mg Tablet, 5 MG PO BID, (Reported) Mirabegron 25 Mg Tab.er.24h, 25 MG PO DAILY, (Reported) Montelukast Sodium 10 Mg Tablet, 10 MG PO HS, (Reported) Multivitamin 1 Each Tablet, 1 TAB PO DAILY, (Reported) Omeprazole 20 Mg Capsule.dr, 20 MG PO DAILY, (Reported) Primidone 50 Mg Tablet, 100 MG PO BID, (Reported) TAKES 2 (50MG) TABLETS Sertraline HCl 50 Mg Tablet, 50 MG PO DAILY, (Reported) Sodium Chloride/Aloe Vera 14.1 Gm Gel..gram., 14.1 GM TP 5XD Prescribed by: BRIANNA HERNANDEZ on 09/06/18 1025 Tramadol HCl 50 Mg Tablet, 50 MG PO Q6H PRN for PAIN-MODERATE Prescribed by: BRIANNA HERNANDEZ on 06/16/18 1031 Valsartan 160 Mg Tablet, 80 MG PO DAILY, (Reported) TAKES 1/2 (160MG) TABLET Patient Home Medication List Home Medication List Reviewed: Yes Review of Systems Review of Systems Constitutional: No chills, No fever Ears: Denies Dizziness Nose: see HPI Mouth: no symptoms reported Throat: no symptoms reported Respiratory: no symptoms reported, cough Cardiovascular: no symptoms reported Past Pojxrth-Gzehkh-Tzxduw Hx Past Med/Social Hx: Reviewed Nursing Past Med/Soc Hx Patient Social History Type Used: Cigarettes 2nd Hand Smoke Exposure: No Recent Foreign Travel: Yes Recent Hopitalizations: Yes Seasonal Allergies Seasonal Allergies: No Past Medical History Surgeries: Yes (CATARACTS) Abdominal, Bowel Surgery, Breast, Gallbladder Respiratory: Yes Pulmonary Embolism, Sleep Apnea Cardiac: Yes High Cholesterol, Hypertension Neurological: Yes (GUILLAIN-BARRE) 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, 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 Sexually Transmitted Disease: Yes (GONORRHEA) Genitourinary: Yes (INCONTINENCE) Gastrointestinal: Yes Gastrointestinal Bleed Musculoskeletal: Yes (RESTLESS LEGS; GAIT DISTURBANCE) Arthritis Endocrine: Yes Diabetes, Non-Insulin dep HEENT: Yes (NOSEBLEEDS; PERTUSSIS; ) Cataract Loss of Vision: Bilateral Hearing Impairment: Hard of Hearing, Bilateral Hearing Aide Cancer: Yes Breast Did You Recieve Any Treatments: Yes What Type of Treatment Did You: Chemotherapy, Radiation, Surgical Intervention Psychosocial: Yes Anxiety Integumentary: Yes (CHICKEN POX, ULCER OF LEFT ANKLE) Blood Disorders: No Family Medical History Heart Disease, Diabetes, Hypertension, Other Conditions/Hx Physical Exam Height, Weight, BMI Height: 4'11.00" Weight: 150lbs. 4.2oz. 68.432307es; 36.5 BMI Method:Estimated General Appearance: WD/WN, no apparent distress Nose: active bleeding (left nare) Cardiovascular: normal peripheral pulses, regular rate, rhythm Respiratory: lungs clear, normal breath sounds, no respiratory distress Gastrointestinal: non tender, soft Skin: normal color, warm/dry Progress/Results/Core Measures Results/Orders My Orders Orders - SORIN PORTILLO DO Phenylephrine 0.25% Nasal Spra (Wally-Syne (01/01/19 07:59) Oxymetazoline 0.05% Nasal [place] (Afrin 0. (01/01/19 09:00) Departure Impression Primary Impression: Recurrent epistaxis Disposition: 01 HOME, SELF-CARE Condition: Stable Departure-Patient Inst. Referrals: ERENDIRA KEANE MD (PCP/Family) Primary Care Physician Patient Instructions: Nosebleeds (DC) SORIN PORTILLO DO Jan 01, 2019 08:05 POS
[2019-01-01 08:45] VITALS: BP 155/77
[2019-01-01] MEDS ORDERED: PHENYLEPHRINE 0.25% NASAL SPR (NEO-SYNEPHRINE) 15 ML NS PRN (09:00)
[2019-01-01] MEDS ORDERED: OXYMETAZOLINE (AFRIN) 0.05% NA 15 ML BTL SCH (09:00)
== END 2019-01-01 08:50 | disposition home or self-care (01) ==
LOC: EDUNIT# 07:56 → ER FS 07:57
DX: R04.0 Epistaxis (principal); G47.30 Sleep apnea, unspecified; I10 Essential (primary) hypertension; E78.00 Pure hypercholesterolemia, unspecified; F03.90 Unspecified dementia, unspecified severity, without behavioral disturbance, psychotic disturbance, mood disturbance, and anxiety; E11.40 Type 2 diabetes mellitus with diabetic neuropathy, unspecified; F41.9 Anxiety disorder, unspecified; Z82.49 Family history of ischemic heart disease and other diseases of the circulatory system; Z86.711 Personal history of pulmonary embolism; Z79.82 Long term (current) use of aspirin; Z79.51 Long term (current) use of inhaled steroids; Z79.84 Long term (current) use of oral hypoglycemic drugs; Z85.3 Personal history of malignant neoplasm of breast

== ENCOUNTER 2019-01-10 09:36 | Emergency (ER) | payer MEDICARE, MEDICAID ==
[~2019-01-10] VITALS: Ht 160 cm; Wt 85.5 kg
[~2019-01-10 09:36] MED LIST changes: +FEN12TD; -FENT1PAT6; +OMEP-280 PO; -OMEP20CA13 PO; -TRAM50TA2 PO; +TRM50T PO
--- NOTE | 2019-01-10 09:59 | ED EENT ---
History of Present Illness General Chief Complaint: Nasal Problems Stated Complaint: EPISTAXIS History of Present Illness Date Seen by Provider: Jan 10, 2019 Time Seen by Provider: 09:40 Initial Comments Patient is a recurrence of the nosebleed in the left nostril is on [place]al which is been held today was in the emergency room previously for this has had some bleeding comes in with a nasal pack slightly bloodstained denies any pain at this time has had problems with slightly elevated blood pressure. Timing/Duration: abrupt Location: nose Prearrival Treatment: nasal packing Modifying Factors: Improves With Lying Down Associated Symptoms: denies symptoms Allergies and Home Medications Allergies Coded Allergies: No Known Drug Allergies (Unverified , 06/11/18) Home Medications Allopurinol 100 Mg Tablet, 100 MG PO DAILY, (Reported) Alprazolam 0.5 Mg Tablet, 0.5 MG PO BID, (Reported) Apixaban 5 Mg Tablet, 5 MG PO BID, (Reported) Aspirin 81 Mg Tablet.dr, 81 MG PO DAILY, (Reported) Calcium Carbonate 600 Mg Tablet, 600 MG PO DAILY, (Reported) Fluticasone Propionate 16 Gm [place].susp, 2 SPRAYS NS DAILY PRN for ALLERGIES, (Reported) Gabapentin 600 Mg Tablet, 600 MG PO QID, (Reported) Gemfibrozil 600 Mg Tablet, 600 MG PO BID, (Reported) Glipizide 5 Mg Tablet, 5 MG PO BID, (Reported) Mirabegron 25 Mg Tab.er.24h, 25 MG PO DAILY, (Reported) Montelukast Sodium 10 Mg Tablet, 10 MG PO HS, (Reported) Multivitamin 1 Each Tablet, 1 TAB PO DAILY, (Reported) Omeprazole 20 Mg Capsule.dr, 20 MG PO DAILY, (Reported) Primidone 50 Mg Tablet, 100 MG PO BID, (Reported) TAKES 2 (50MG) TABLETS Sertraline HCl 50 Mg Tablet, 50 MG PO DAILY, (Reported) Sodium Chloride/Aloe Vera 14.1 Gm Gel..gram., 14.1 GM TP 5XD Prescribed by: BRIANNA HERNANDEZ on 09/06/18 1025 Tramadol HCl 50 Mg Tablet, 50 MG PO Q6H PRN for PAIN-MODERATE Prescribed by: BRIANNA HERNANDEZ on 06/16/18 1031 Valsartan 160 Mg Tablet, 80 MG PO DAILY, (Reported) TAKES 1/2 (160MG) TABLET Patient Home Medication List Home Medication List Reviewed: Yes Review of Systems Review of Systems Constitutional: no symptoms reported Ears: No Symptoms Reported Nose: epistaxis Mouth: no symptoms reported Throat: no symptoms reported Respiratory: no symptoms reported Cardiovascular: no symptoms reported Past Dgdmtnt-Kgqkyh-Tiuocz Hx Past Med/Social Hx: Reviewed Nursing Past Med/Soc Hx Patient Social History Type Used: Cigarettes 2nd Hand Smoke Exposure: No Recent Foreign Travel: No Recent Hopitalizations: Yes Seasonal Allergies Seasonal Allergies: No Past Medical History Surgeries: Yes (CATARACTS) Abdominal, Bowel Surgery, Breast, Gallbladder Respiratory: Yes Pulmonary Embolism, Sleep Apnea Cardiac: Yes High Cholesterol, Hypertension Neurological: Yes (GUILLAIN-BARRE) 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, 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 Sexually Transmitted Disease: Yes (GONORRHEA) Genitourinary: Yes (INCONTINENCE) Gastrointestinal: Yes Gastrointestinal Bleed Musculoskeletal: Yes (RESTLESS LEGS; GAIT DISTURBANCE) Arthritis Endocrine: Yes Diabetes, Non-Insulin dep HEENT: Yes (NOSEBLEEDS; PERTUSSIS; ) Cataract Loss of Vision: Bilateral Hearing Impairment: Hard of Hearing, Bilateral Hearing Aide Cancer: Yes Breast Did You Recieve Any Treatments: Yes What Type of Treatment Did You: Chemotherapy, Radiation, Surgical Intervention Psychosocial: Yes Anxiety Integumentary: Yes (CHICKEN POX, ULCER OF LEFT ANKLE) Blood Disorders: No Family Medical History Heart Disease, Diabetes, Hypertension, Other Conditions/Hx Physical Exam Vital Signs Vital Signs - First Documented 01/10/19 10:08 Temp 36.5 Pulse 60 Resp 18 B/P (MAP) 173/64 (100) Pulse Ox 96 Height, Weight, BMI Height: 4'11.00" Weight: 150lbs. 4.2oz. 68.565915jd; 30.00 BMI Method:Estimated General Appearance: WD/WN, mild distress Eyes: bilateral eye PERRL, bilateral eye EOMI Ears: bilateral ear auricle normal, bilateral ear TM normal Nose: No active bleeding; dried blood Neck: non-tender, supple, normal inspection Cardiovascular: regular rate, rhythm, no murmur Respiratory: lungs clear, no respiratory distress Gastrointestinal: normal bowel sounds, non tender, soft Neurologic/Psychiatric: alert, normal mood/affect, other (mild MR by history) Skin: normal color, warm/dry Progress/Results/Core Measures Results/Orders Lab Results Laboratory Tests Test 12/4/19 10:00 Range/Units White Blood Count 5.1 4.3-11.0 10^3/uL Red Blood Count 3.73 L 4.35-5.85 10^6/uL Hemoglobin 12.0 11.5-16.0 G/DL Hematocrit 37 35-52 % Mean Corpuscular Volume 99 80-99 FL Mean Corpuscular Hemoglobin 32 25-34 PG Mean Corpuscular Hemoglobin Concent 32 32-36 G/DL Red Cell Distribution Width 13.8 10.0-14.5 % Platelet Count 215 130-400 10^3/uL Mean Platelet Volume 9.5 7.4-10.4 FL Neutrophils (%) (Auto) 65 42-75 % Lymphocytes (%) (Auto) 18 12-44 % Monocytes (%) (Auto) 12 0-12 % Eosinophils (%) (Auto) 4 0-10 % Basophils (%) (Auto) 1 0-10 % Neutrophils # (Auto) 3.3 1.8-7.8 X 10^3 Lymphocytes # (Auto) 0.9 L 1.0-4.0 X 10^3 Monocytes # (Auto) 0.6 0.0-1.0 X 10^3 Eosinophils # (Auto) 0.2 0.0-0.3 10^3/uL Basophils # (Auto) 0.1 0.0-0.1 10^3/uL Neutrophils % (Manual) 62 % Lymphocytes % (Manual) 20 % Monocytes % (Manual) 10 % Eosinophils % (Manual) 3 % Basophils % (Manual) 2 % Myelocytes % 3 % Blood Morphology Comment NORMAL Prothrombin Time 14.1 12.2-14.7 SEC INR Comment 1.1 0.8-1.4 Activated Partial Thromboplast Time 37 H 24-35 SEC Sodium Level 139 135-145 MMOL/L Potassium Level 5.4 H 3.6-5.0 MMOL/L Chloride Level 101 98-107 MMOL/L Carbon Dioxide Level 25 21-32 MMOL/L Anion Gap 13 5-14 MMOL/L Blood Urea Nitrogen 18 7-18 MG/DL Creatinine 0.73 0.60-1.30 MG/DL Estimat Glomerular Filtration Rate > 60 BUN/Creatinine Ratio 25 Glucose Level 141 H 70-105 MG/DL Calcium Level 10.0 8.5-10.1 MG/DL Corrected Calcium 9.7 8.5-10.1 MG/DL Total Bilirubin 0.2 0.1-1.0 MG/DL Aspartate Amino Transf (AST/SGOT) 21 5-34 U/L Alanine Aminotransferase (ALT/SGPT) 17 0-55 U/L Alkaline Phosphatase 64 40-136 U/L Total Protein 7.6 6.4-8.2 GM/DL Albumin 4.4 3.2-4.5 GM/DL My Orders Orders - ANAMARIA VELARDE JR, MD Cbc And Manual Diff (01/10/19 09:59) Comprehensive Metabolic Panel (01/10/19 09:59) Protime With Inr (01/10/19 09:59) Partial Thromboplastin Time (01/10/19 09:59) Ua Culture If Indicated (01/10/19 10:56) Vital Signs/I&O 01/10/19 10:08 Temp 36.5 Pulse 60 Resp 18 B/P (MAP) 173/64 (100) Pulse Ox 96 Progress Progress Note : Time: 10:58 Progress Note Discussed sensation aboutand do feel like the epistaxis partially due to liquids will small amount of Vaseline at bedtime 4 days will follow up if needed did would go ahead and draw her labs that was going to be drawn by her kidney doctor tomorrow including CBC CMP and UA. She's not to take [place] Jamal until approved by her physician Departure Impression Primary Impression: Recurrent epistaxis Disposition: 01 HOME, SELF-CARE Condition: Stable Departure-Patient Inst. Referrals: ERENDIRA KEANE MD (PCP/Family) Primary Care Physician Patient Instructions: Nosebleeds (DC) Add. Discharge Instructions: All discharge instructions reviewed with patient and/or family. Voiced understanding. Small amount of Vaseline to use nostril at bedtime 3 days did not take eliquis until approved by your primary care provider ANAMARIA VELARDE JR, MD Jan 10, 2019 09:59 POS
[2019-01-10 10:32] LABS: WHITE BLOOD COUNT 5.1 10^3/uL (4.3-11.0)
[2019-01-10 10:33] LABS: BASOPHILS % (AUTO) 1 % (0-10); EOSINOPHILS % (AUTO) 4 % (0-10); HEMATOCRIT 37 % (35-52); LYMPHOCYTES # (AUTO) 0.9 X 10^3 (1.0-4.0); LYMPHOCYTES % (AUTO) 18 % (12-44); MEAN CORPUSCULAR HEMOGLOBIN 32 PG (25-34); MEAN CORPUSCULAR HGB CONC 32 G/DL (32-36); MEAN CORPUSCULAR VOLUME 99 FL (80-99); MEAN PLATELET VOLUME 9.5 FL (7.4-10.4); MONOCYTES % (AUTO) 12 % (0-12); NEUTROPHILS # (AUTO) 3.3 X 10^3 (1.8-7.8); NEUTROPHILS % (AUTO) 65 % (42-75); PLATELET COUNT 215 10^3/uL (130-400); RED CELL DISTRIBUTION WIDTH 13.8 % (10.0-14.5)
[2019-01-10 10:34] LABS: BASOPHILS # (AUTO) 0.1 10^3/uL (0.0-0.1); EOSINOPHILS # (AUTO) 0.2 10^3/uL (0.0-0.3); MONOCYTES # (AUTO) 0.6 X 10^3 (0.0-1.0)
[2019-01-10 10:39] LABS: BASOPHILS % (MANUAL) 2 %; EOSINOPHILS % (MANUAL) 3 %; LYMPHOCYTES % (MANUAL) 20 %; MONOCYTES % (MANUAL) 10 %; MYELOCYTES % 3 %; NEUTROPHILS % (MANUAL) 62 %
[2019-01-10 10:40] LABS: INR 1.1 (0.8-1.4); PROTHROMBIN TIME PATIENT 14.1 SEC (12.2-14.7); RBC MORPH NORMAL
[2019-01-10 10:41] LABS: BUN/CREATININE RATIO 25; CARBON DIOXIDE 25 MMOL/L (21-32); CHLORIDE 101 MMOL/L (98-107); CREATININE SERUM 0.73 MG/DL (0.60-1.30); GFR ESTIMATED > 60; GLUCOSE 141 MG/DL (70-105); SODIUM 139 MMOL/L (135-145)
[2019-01-10 10:42] LABS: ALANINE AMINOTRANSFERASE 17 U/L (0-55); ALBUMIN 4.4 GM/DL (3.2-4.5); ALKALINE PHOSPHATASE 64 U/L (40-136); BILIRUBIN,TOTAL 0.2 MG/DL (0.1-1.0); POTASSIUM 5.4 MMOL/L (3.6-5.0); TOTAL PROTEIN 7.6 GM/DL (6.4-8.2)
--- NOTE | 2019-01-10 11:18 | NUR ---
Pt was in the process of discharge when her nose started to minimally bleed. Dr. Dai in to re-assess the pt. Dr. Dai applied silver nitrate applicator to left anterior nare. Bleeding controlled after treatment.
[2019-01-10 11:25] LABS: CLARITY,URINE CLEAR; COLOR,URINE YELLOW
[2019-01-10 11:26] LABS: BACTERIA,URINE NEGATIVE /HPF; BILIRUBIN,URINE NEGATIVE (NEGATIVE); GLUCOSE, URINE (UA) NEGATIVE (NEGATIVE); KETONES,URINE NEGATIVE (NEGATIVE); LEUKOCYTE ESTERASE ,URINE 1+ (NEGATIVE); NITRITE,URINE NEGATIVE (NEGATIVE); PROTEIN,URINE 1+ (NEGATIVE); SQUAMOUS EPITHELIAL CELL,UR 0-2 /HPF
[2019-01-10] MEDS ORDERED: SILVER NITRATE APPLICATOR 1 PKT TP ONE (11:30)
[2019-01-10 11:37] VITALS: BP 167/59
--- OUTSIDE RECORDS SUMMARY | 2019-02-04 23:30 | XMS REPORT | Clinical Summary ---
Author Author [facility] Organization [facility] Address Unknown Phone Unavailable Care Team Providers Care C4 Planner Name Role Phone Parvez Rosario MD Unavailable No Pcp, Na PCP Unavailable Source Comments Some departments are not documenting in the electronic medical record. 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 Intravitreal Injection Procedure OCT and other investigations were caref ully reviewed and a decision was made to inject the eye with medication for treatment of the condition. I discussed diagnosis and plan for intrav itreal injection with patient. Risks, benefits and alternatives were d iscussed with patient. Risk of infection, and signs and symptoms of in fection discussed at length with patient. Discussed fluctuating and det eriorating vision over the course of treatment. Patient elects to proceed w ith injection, informed consent was obtained and all questions were answere d. Eye OD Diagnosis: WET AMD Pre-injection drops: Tetracaine 0.5% drops X 5% Betadine X Speculum used X Tetravisc X Injection Needle: 27 Gauge Needle 30 Gauge Needle Needle supplied with medication X Intravitreal injection: Concentration Volume (in mL) Aflibercept (Eylea) 2 mg / 0.05 mL Ranibizumab (Lucentis) 0.3 mg / 0.05 m L Ranibizumab (Lucentis) 0.5 mg / 0.05 m L Bevacizumab (Avastin) 1.25 mg / 0.05 m L X Triamcinolone (Kenalog) 40 mg / mL Triamcinolone (Triesence) 40 mg / mL Vancomycin 1 mg / 100 microLiters Ceftazidime 2 mg / 100 microLiters Zero units wasted Post-operative examination: Intraocular pressure checked by tonopen and found to be wnl mmHg; no complications noted X Antibiotic ointment instilled in the ey e Patient stable at discharge I personally performed the Injection Parvez Rosario MD 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 03/25/2015 Last Assessment & Plan: inactive Corneal scar, 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 Last Assessment & Plan: 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 noted stromal vessels today Resolved Problems Problem Noted Date Resolved Date AMD (age related macular degeneration) right eye 6 03/25/2015 Family History Medical History Relation Name [...] Health Maintenance Due Date Last Done Comments MEDICARE ANNUAL WELLNESS 1942 VISIT DTAP/TDAP VACCINES (1 - 1953 Tdap) PHYSICAL (COMPREHENSIVE) 1960 EXAM SHINGLES RECOMBINANT 1992 VACCINE (1 of 2) OSTEOPOROSIS 12/13/2007 SCREENING/MONITORING PNEUMONIA (PCV13/PPSV23) 12/13/2007 VACCINES (1 of 2 - PCV13) INFLUENZA VACCINE 09/07/2018 Results Not on filefrom Last 3 Months Insurance Type Payer Benefit Subscriber ID Effective Phone Address Plan / Dates Group Medicare MEDICARE MEDICARE xxxxxxxxxxx 1972-P PART A AND resent B Medicaid [employer] [place] [employer] xxxxxxxxxxx 2009- STATE Present HEALTH [phone] Advance Directives 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
--- OUTSIDE RECORDS SUMMARY | 2019-02-04 23:31 | XMS REPORT | Continuity of Care Document ---
Author Organization Unknown Address Unknown Phone Unavailable Allergies Active Description Code Type Severity Reaction Onset Reported/Identified Relationship to Patient Clinical Status Yes NO KNOWN DRUG ALLERGIES UNKNOWN UNKNOWN Yes No Known Drug Allergies [id number] Drug Allergy Unknown N/A 06/11/2018 Medications There [...] 12/02/2015 DANNY PADILLA N Ot Z79.899 OTHER SHELTER (CURRENT) DRUG THERAPY 12/02/2015 DANNY PADILLA N [...] 12/08/2015 DANNY PADILLA N Ot Z79.899 OTHER PLATE STACKER HAND (CURRENT) DRUG THERAPY 12/08/2015 DANNY PADILLA N [...] 12/23/2015 DANNY PADILLA N Ot Z79.899 OTHER SHELTER (CURRENT) DRUG THERAPY 12/23/2015 DANNY PADILLA N [...] 12/31/2015 DANNY PADILLA N Ot Z79.899 OTHER SHELTER (CURRENT) DRUG THERAPY 12/31/2015 DANNY PADILLA N Ot Z85.3 PERSONAL HISTORY OF MALIGNANT NEOPLASM O 12/31/2015 DANNY PADILLA N Ot Z92.3 PERSONAL HISTORY OF IRRADIATION 09/17/2016 Carlos Melchor MD L9 0.0 Lichen sclerosus et atrophicus 12/10/2016 DANNY PADILLA Ot E08.40 DIABETES DUE TO UNDERLYING CONDITION W D 12/10/2016 DANNY PADILLA Kodi Ot G62.9 POLYNEUROPATHY, UNSPECIFIED 12/10/2016 DANNY PADILLA Ot Z08 ENCNTR FOR FOLLOW-UP EXAM AFTER TRTMT FO 12/10/2016 DANNY PADILLA Kodi Ot Z79.899 OTHER SHELTER (CURRENT) DRUG THERAPY 12/10/2016 DANNY PADILLA Kodi Ot Z85.3 PERSONAL HISTORY OF MALIGNANT NEOPLASM O 12/10/2016 DANNY PADILLA Kodi Ot Z92.3 PERSONAL HISTORY OF IRRADIATION 01/14/2017 Ruiz CARRILLO, Carlos Gamez N32.81 Overactive Bladder 01/23/2017 Ot 356.9 IDIO PERIPH NEURPTHY NOS 01/23/2017 Ot V10.3 HX O F BREAST MALIGNANCY 01/23/2017 Ot V58.66 LOR G-TERM (CURRENT) USE OF ASPIRIN 01/23/2017 Ot V58.69 OTH MED,LT,CURRENT USE 01/23/2017 Ot V67.1 RADI OTHERAPY FOLLOW-UP 01/23/2017 DANNY PADILLA Kodi Ot 356.9 [...] DANNY PADILLA Ot V67.1 RADIOTHERAPY FOLLOW-UP 01/23/2017 DANYN PADILLA Ot E08.40 DIABETES DUE TO UNDERLYING CONDITION W D 01/23/2017 DANNY PADILLA Ot G62.9 POLYNEUROPATHY, UNSPECIFIED 01/23/2017 DANNY PADILLA N Ot Z08 ENCNTR FOR FOLLOW-UP EXAM AFTER TRTMT FO 01/23/2017 DANNY PADILLA N Ot Z79.899 OTHER SHELTER (CURRENT) DRUG THERAPY 01/23/2017 DANNY PADILLA N Ot Z85.3 PERSONAL HISTORY OF MALIGNANT NEOPLASM O 01/23/2017 DANNY PADILLA N Ot Z92.3 PERSONAL HISTORY OF IRRADIATION 01/23/2017 DANNY PADILLA Ot E08.40 DIABETES DUE TO UNDERLYING CONDITION W D 01/23/2017 DANNY PADILLA Ot G62.9 POLYNEUROPATHY, UNSPECIFIED 01/23/2017 DANNY PADILLA N Ot Z08 ENCNTR FOR FOLLOW-UP EXAM AFTER TRTMT FO 01/23/2017 DANNY PADILLA Ot Z79.899 OTHER PLATE STACKER HAND (CURRENT) DRUG THERAPY 01/23/2017 DANNY PADILLA N [...] 01/23/2017 DANNY PADILLA N Ot Z79.899 OTHER PLATE STACKER HAND (CURRENT) DRUG THERAPY 01/23/2017 DANNY PADILLA N Ot Z85.3 PERSONAL HISTORY OF MALIGNANT NEOPLASM O 01/23/2017 DANNY PADILLA N Ot Z92.3 PERSONAL HISTORY OF IRRADIATION 01/24/2017 DANISH CARRILLO, MARYANN P Ot E11 .9 TYPE 2 DIABETES MELLITUS WITHOUT COMPLIC 01/24/2017 DANISH CARRILLO, MARYANN Spicer Ot E78.00 PURE HYPERCHOLESTEROLEMIA, UNSPECIFIED 01/24/2017 MARYANN PENG MD Ot G25.81 RESTLESS LEGS SYNDROME 01/24/2017 MARYANN PENG MD Ot G47.30 SLEEP APNEA, UNSPECIFIED 01/24/2017 MARYANN PENG MD Ot G61 .0 GUILLAIN-BARRE SYNDROME 01/24/2017 MARYANN PENG MD Ot I10 ESSENTIAL (PRIMARY) HYPERTENSION 01/24/2017 MARYANN PENG MD Ot 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, STAGE 3 01/24/2017 MARYANN PENG MD Ot M19.91 PRIMARY OSTEOARTHRITIS, UNSPECIFIED SITE 01/24/2017 MARYANN PENG MD Ot R04 .0 EPISTAXIS 01/24/2017 MARYANN PENG MD Ot Z79.82 SHELTER (CURRENT) USE OF ASPIRIN 01/26/2017 MARYANN PENG MD Ot E11 .9 TYPE 2 DIABETES MELLITUS WITHOUT COMPLIC 01/26/2017 MARYANN PENG MD Ot E78.00 PURE HYPERCHOLESTEROLEMIA, UNSPECIFIED 01/26/2017 MARYANN PENG MD Ot G25.81 RESTLESS LEGS SYNDROME 01/26/2017 MARYANN PNEG MD Ot G47.30 SLEEP APNEA, UNSPECIFIED 01/26/2017 MARYANN PENG MD Ot G61 .0 GUILLAIN-BARRE SYNDROME 01/26/2017 MARYANN PENG MD Ot I10 ESSENTIAL (PRIMARY) HYPERTENSION 01/26/2017 MARYANN PENG MD Ot 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, STAGE 3 01/26/2017 MARYANN PENG MD Ot M19.91 PRIMARY OSTEOARTHRITIS, UNSPECIFIED SITE 01/26/2017 MARYANN PENG MD Ot R04 .0 EPISTAXIS 01/26/2017 MARYANN PENG MD Ot Z79.82 PLATE STACKER HAND (CURRENT) USE OF ASPIRIN 02/02/2017 DANNY PADILLA Ot E08.40 DIABETES DUE TO UNDERLYING CONDITION W D 02/02/2017 DANNY PADILLA Ot G62.9 POLYNEUROPATHY, UNSPECIFIED 02/02/2017 DANNY PADILLA Ot Z08 ENCNTR FOR FOLLOW-UP EXAM AFTER TRTMT FO 02/02/2017 DANNY PADILLA Ot Z79.899 OTHER PLATE STACKER HAND (CURRENT) DRUG THERAPY 02/02/2017 DANNY PADILLA Ot [...] 02/04/2017 DANNY PADILLA N Ot Z79.899 OTHER SHELTER (CURRENT) DRUG THERAPY 02/04/2017 RANDY REGINALDOKALLI N Ot Z85.3 PERSONAL HISTORY OF MALIGNANT NEOPLASM O 02/04/2017 RANDY REGINALDOKALLI N Ot Z92.3 PERSONAL HISTORY OF IRRADIATION 02/23/2017 Ruiz CARRILLO, Carlos Gamez R1 5.9 Fecal incontinence 03/09/2017 RANDY REGINALDOKALLI N Ot E08.40 DIABETES DUE TO UNDERLYING CONDITION W D 03/09/2017 DANNY PADILLA N Ot G62.9 POLYNEUROPATHY, UNSPECIFIED 03/09/2017 RANDY REGINALDOKALLI N Ot Z08 ENCNTR FOR FOLLOW-UP EXAM AFTER TRTMT FO 03/09/2017 DANNY PADILLA N Ot Z79.899 OTHER SHELTER (CURRENT) DRUG THERAPY 03/09/2017 RANDY REGINALDOKALLI N [...] 03/10/2017 RANDY REGINALDOKALLI N Ot Z79.899 OTHER PLATE STACKER HAND (CURRENT) DRUG THERAPY 03/10/2017 RANDY REGINADLOKALLI N Ot Z85.3 PERSONAL HISTORY OF MALIGNANT NEOPLASM O 03/10/2017 RANDYDANNY N Ot Z92.3 PERSONAL HISTORY OF IRRADIATION 03/07/2018 RANDY DANNY N Ot 356.9 IDIO PERIPH NEURPTHY NOS 03/07/2018 RANDY REGINALDOKALLI N Ot 715.89 OSTEOARTHROSIS-MULT SITE 03/07/2018 DANNY [...] V10.3 HX OF BREAST MALIGNANCY 03/07/2018 RANDY REGINALDOKALLI Kodi Ot V58.66 LONG-TERM (CURRENT) USE OF ASPIRIN 03/07/2018 DANNY PADILLA Kodi Ot V58.69 OTH MED,LT,CURRENT USE 03/07/2018 RANDY REGINALDOKALLI N Ot V67.1 RADIOTHERAPY FOLLOW-UP 03/07/2018 RANDY REGINALDOKALLI Kodi Ot E08.40 DIABETES DUE TO UNDERLYING CONDITION W D 03/07/2018 RANDY DANNY Mariee Ot G62.9 POLYNEUROPATHY, UNSPECIFIED 03/07/2018 RANDY DANNY N Ot Z08 ENCNTR FOR FOLLOW-UP EXAM AFTER TRTMT FO 03/07/2018 RANDY DANNY N Ot Z79.899 OTHER PLATE STACKER HAND (CURRENT) DRUG THERAPY 03/07/2018 RANDY DANNY N [...] 03/07/2018 RANDY DANNY N Ot Z79.899 OTHER SHELTER (CURRENT) DRUG THERAPY 03/07/2018 RANDY DANNY N [...] 03/07/2018 DANNY PADILLA Kodi Ot Z79.899 OTHER SHELTER (CURRENT) DRUG THERAPY 03/07/2018 RANDY REGINALDOKALLI N [...] REGINALDOKALLI N Ot V67.1 RADIOTHERAPY FOLLOW-UP 03/08/2018 DANNY PADILLA Kodi Ot E08.40 DIABETES DUE TO UNDERLYING CONDITION W D 03/08/2018 RANDY REGINALDOKALLI Kodi Ot G62.9 POLYNEUROPATHY, UNSPECIFIED 03/08/2018 RANDY REGINALDOKALLI Kodi Ot Z08 ENCNTR FOR FOLLOW-UP EXAM AFTER TRTMT FO 03/08/2018 RANDY REGINALDOKALLI Kodi Ot Z79.899 OTHER SHELTER (CURRENT) DRUG THERAPY 03/08/2018 RANDY BOBAN N Ot Z85.3 PERSONAL HISTORY OF MALIGNANT NEOPLASM O 03/08/2018 DANNY PADILLA Ot Z92.3 PERSONAL HISTORY OF IRRADIATION 03/08/2018 DANNY PADILLA Ot E08.40 DIABETES DUE TO UNDERLYING CONDITION W D 03/08/2018 DANNY PADILLA Ot G62.9 POLYNEUROPATHY, UNSPECIFIED 03/08/2018 DANNY PADILLA Ot Z08 ENCNTR FOR FOLLOW-UP EXAM AFTER TRTMT FO 03/08/2018 DANNY PADILLA Ot Z79.899 OTHER PLATE STACKER HAND (CURRENT) DRUG THERAPY 03/08/2018 DANNY PADILLA N Ot Z85.3 PERSONAL HISTORY OF MALIGNANT NEOPLASM O 03/08/2018 DANNY PADILLA Ot Z92.3 PERSONAL HISTORY OF IRRADIATION 03/08/2018 DANNY PADILLA Ot E08.40 DIABETES DUE TO UNDERLYING CONDITION W D 03/08/2018 DANNY PADILLA Ot G62.9 POLYNEUROPATHY, UNSPECIFIED 03/08/2018 DANNY PADILLA Ot Z08 ENCNTR FOR FOLLOW-UP EXAM AFTER TRTMT FO 03/08/2018 DANNY PADILLA Ot Z79.899 OTHER SHELTER (CURRENT) DRUG THERAPY 03/08/2018 DANNY PADILLA Ot Z85.3 PERSONAL HISTORY OF MALIGNANT NEOPLASM O 03/08/2018 DANNY PADILLA N Ot Z92.3 PERSONAL HISTORY OF IRRADIATION 03/10/2018 BENJAMÍN BARROW MD Ot E11.42 TYPE 2 DIABETES MELLITUS WITH DIABETIC P 03/10/2018 BENJAMÍN BARROW MD Ot E78.00 PURE HYPERCHOLESTEROLEMIA, UNSPECIFIED 03/10/2018 BENJAMÍN BARROW MD Ot H91.93 UNSPECIFIED HEARING LOSS, BILATERAL 03/10/2018 BENJMAÍN BARROW MD Ot I10 ESSENTIAL (PRIMARY) HYPERTENSION 03/10/2018 BENJAMÍN BARROW MD Ot J18 .9 PNEUMONIA, UNSPECIFIED ORGANISM 03/10/2018 BENJAMÍN BARROW MD Ot K56 .7 ILEUS, UNSPECIFIED 03/10/2018 BENJAMÍN BARROW MD Ot Z85 .3 PERSONAL HISTORY OF MALIGNANT NEOPLASM O 03/10/2018 BENJAMÍN BARROW MD Ot Z97 .4 PRESENCE OF EXTERNAL HEARING-AID 05/07/2018 RON LOPEZ [...] PAIN 05/07/2018 RON LOPEZ MD Ot Z79.4 PLATE STACKER HAND (CURRENT) USE OF INSULIN 05/07/2018 RON LOPEZ MD, Ot Z79.51 PLATE STACKER HAND (CURRENT) USE OF INHALED STERO 05/07/2018 RON LOPEZ MD, Ot Z79.82 PLATE STACKER HAND (CURRENT) USE OF ASPIRIN 05/07/2018 RON LOPEZ [...] PAIN 05/11/2018 RON LOPEZ MD, Ot Z79.4 SHELTER (CURRENT) USE OF INSULIN 05/11/2018 RON LOPEZ MD, Ot Z79.51 SHELTER (CURRENT) USE OF INHALED STERO 05/11/2018 RON LOPEZ MD, Ot Z79.82 PLATE STACKER HAND (CURRENT) USE OF ASPIRIN 05/11/2018 RON LOPEZ MD, Ot Z85.3 PERSONAL HISTORY OF MALIGNANT NEOPLASM O 05/11/2018 RON LOPEZ MD, Ot Z87.19 PERSONAL HISTORY OF OTHER DISEASES OF TH 05/11/2018 RON LOPEZ MD, Ot Z92.21 PERSONAL HISTORY OF ANTINEOPLASTIC CHEMO 05/11/2018 RON LOPEZ MD, Ot Z98.890 OTHER SPECIFIED POSTPROCEDURAL STATES 05/15/2018 ERENDIRA KEANE MD Ot E87 .5 HYPERKALEMIA 05/17/2018 ERENDIRA KEANE MD Ot E87 .5 HYPERKALEMIA 05/17/2018 ERENDIRA KEANE MD Ot E87 .5 HYPERKALEMIA 06/02/2018 ERENDIRA KEANE MD Ot E87 .5 HYPERKALEMIA 06/08/2018 ERENDIRA KEANE MD Ot E87 .5 HYPERKALEMIA 06/11/2018 DANNY PADILLA Ot E08.40 DIABETES DUE TO UNDERLYING CONDITION W D 06/11/2018 DANNY PADILLA Ot G62.9 POLYNEUROPATHY, UNSPECIFIED 06/11/2018 DANNY PADILLA Ot Z08 ENCNTR FOR FOLLOW-UP EXAM AFTER TRTMT FO 06/11/2018 DANNY PADILLA Ot Z79.899 OTHER SHELTER (CURRENT) DRUG THERAPY 06/11/2018 DANNY PADILLA Ot Z85.3 PERSONAL HISTORY OF MALIGNANT NEOPLASM O 06/11/2018 RANDYDANNY SHUKLA Kodi Ot Z92.3 PERSONAL HISTORY OF IRRADIATION 06/16/2018 ABHISHEK SAGE MD, Ot C50.919 MALIGNANT NEOPLASM OF UNSP SITE OF UNSPE 06/16/2018 ABHISHEK SAGE MD, Ot E11. 40 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 06/16/2018 ABHISHEK SAGE MD, Ot E11.621 TYPE 2 DIABETES MELLITUS WITH FOOT ULCER 06/16/2018 ABHISHEK SAGE MD, Ot E78. 00 PURE HYPERCHOLESTEROLEMIA, UNSPECIFIED 06/16/2018 ABHISHEK SAGE MD, Ot E87. 5 HYPERKALEMIA 06/16/2018 ABHISHEK SAGE MD, Ot F41. 9 ANXIETY DISORDER, UNSPECIFIED 06/16/2018 ABHISHEK SAGE MD, Ot F79 UNSPECIFIED INTELLECTUAL DISABILITIES 06/16/2018 ABHISHEK SAGE MD, Ot G25. 81 RESTLESS LEGS SYNDROME 06/16/2018 ABHISHEK SAGE MD, Ot G47. 30 SLEEP APNEA, UNSPECIFIED 06/16/2018 ABHISHEK SAGE MD, Ot G61. 0 GUILLAIN-BARRE SYNDROME 06/16/2018 ABHISHEK SAGE MD, Ot H91. 93 UNSPECIFIED HEARING LOSS, BILATERAL 06/16/2018 ABHISHEK SAGE MD, Ot I10 ESSENTIAL (PRIMARY) HYPERTENSION 06/16/2018 ABHISHEK SAGE MD, Ot I26. 99 OTHER PULMONARY EMBOLISM WITHOUT ACUTE C 06/16/2018 ABHISHEK SAGE MD, Ot K21. 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 9 GOUT, UNSPECIFIED 06/16/2018 ABHISHEK SAGE MD, Ot M19. 91 PRIMARY OSTEOARTHRITIS, UNSPECIFIED SITE 06/16/2018 ABHISHEK SAGE MD, Ot R26. 9 UNSPECIFIED ABNORMALITIES OF GAIT AND MO 06/16/2018 ABHISHEK SAGE MD, Ot R31. 9 HEMATURIA, UNSPECIFIED 06/16/2018 ABHISHEK SAGE MD, Ot R32 UNSPECIFIED URINARY INCONTINENCE 06/16/2018 ABHISHEK SAGE MD, Ot Z85. 3 PERSONAL HISTORY OF MALIGNANT NEOPLASM O 06/16/2018 ABHISHEK SAGE MD, Ot Z86. 19 PERSONAL HISTORY OF OTHER INFECTIOUS AND 06/16/2018 ABHISHEK SAGE MD, Ot Z92. 21 PERSONAL HISTORY OF ANTINEOPLASTIC CHEMO 06/16/2018 ABHISHEK SAGE MD, Ot Z92. 3 PERSONAL HISTORY OF IRRADIATION 06/16/2018 ABHISHEK SAGE MD, Ot Z97. 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 06/19/2018 DORIS ESPARZA DO, Ot I1 0 ESSENTIAL (PRIMARY) HYPERTENSION 06/19/2018 DORIS ESPARZA DO, Ot R04.0 EPISTAXIS 06/19/2018 DORIS ESPARZA DO, Ot Z79.01 PLATE STACKER HAND (CURRENT) USE OF ANTICOAGULANT 06/19/2018 DORIS ESPARZA DO, Ot Z79.4 PLATE STACKER HAND (CURRENT) USE OF INSULIN 06/19/2018 ODRIS ESPARZA DO, Ot Z79.51 SHELTER (CURRENT) USE OF INHALED STERO 06/19/2018 DORIS ESPARZA DO, Ot Z79.82 PLATE STACKER HAND (CURRENT) USE OF ASPIRIN 06/19/2018 DORIS ESPARZA [...] 2 DIABETES MELLITUS WITH DIABETIC N 06/20/2018 [facility], GABRIEL Ot E11.621 TYPE 2 DIABETES MELLITUS WITH FOOT ULCER 06/20/2018 ZAVALA , GABRIEL Ot E78.00 PURE HYPERCHOLESTEROLEMIA, UNSPECIFIED 06/20/2018 [facility], GABRIEL Ot F41.9 ANXIETY DISORDER, UNSPECIFIED 06/20/2018 [facility], GABRIEL Ot G47.30 SLEEP APNEA, UNSPECIFIED 06/20/2018 [facility], GABRIEL 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 06/20/2018 [facility], GABRIEL Ot I10 ESSENTIAL (PRIMARY) HYPERTENSION 06/20/2018 [facility], GABRIEL Ot L97.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- PRESSURE CHRONIC ULCER OTH PRT LEFT 06/20/2018 [facility], GABRIEL Ot Z79.01 SHELTER (CURRENT) USE OF ANTICOAGULANT 06/20/2018 [facility], GABRIEL Ot Z79.4 PLATE STACKER HAND (CURRENT) USE OF INSULIN 06/20/2018 [facility], GABRIEL Ot Z79.82 PLATE STACKER HAND (CURRENT) USE OF ASPIRIN 06/20/2018 [facility], GABRIEL Ot Z82.49 FAMILY HX OF ISCHEM HEART DIS AND OTH DI 06/20/2018 [facility], GABRIEL Ot Z85.3 PERSONAL HISTORY OF MALIGNANT NEOPLASM O 06/20/2018 [facility], GABRIEL Ot Z87.19 PERSONAL HISTORY OF OTHER [...] G47.30 SLEEP APNEA, UNSPECIFIED 06/21/2018 DORIS ESPARZA DO 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 06/21/2018 DORIS ESPARZA DO, Ot I1 0 ESSENTIAL (PRIMARY) HYPERTENSION 06/21/2018 DORIS ESPARZA DO, Ot R04.0 EPISTAXIS 06/21/2018 DORIS ESPARZA DO, Ot Z79.01 SHELTER (CURRENT) USE OF ANTICOAGULANT 06/21/2018 DORIS ESPARZA DO, Ot Z79.4 SHELTER (CURRENT) USE OF INSULIN 06/21/2018 DORIS ESPARZA DO, Ot Z79.51 PLATE STACKER HAND (CURRENT) USE OF INHALED STERO 06/21/2018 DORIS ESPARZA DO, Ot Z79.82 PLATE STACKER HAND (CURRENT) USE OF ASPIRIN 06/21/2018 DORIS ESPARZA [...] F41.9 ANXIETY DISORDER, UNSPECIFIED 06/22/2018 GABRIEL ZAVALA DO Ot G47.30 SLEEP APNEA, UNSPECIFIED 06/22/2018 GABRIEL ZAVALA DO, 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 06/22/2018 GABRIEL ZAVALA DO, Ot I10 ESSENTIAL (PRIMARY) HYPERTENSION 06/22/2018 GABRIEL ZAVALA DO, Ot L97.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- PRESSURE CHRONIC ULCER OTH PRT LEFT 06/22/2018 GABRIEL ZAVALA DO, Ot Z79.01 SHELTER (CURRENT) USE OF ANTICOAGULANT 06/22/2018 GABRIEL ZAVALA DO, Ot Z79.4 PLATE STACKER HAND (CURRENT) USE OF INSULIN 06/22/2018 GABRIEL ZAVALA DO Ot Z79.82 SHELTER (CURRENT) USE OF ASPIRIN 06/22/2018 GABRIEL ZAVALA DO Ot Z82.49 FAMILY HX OF ISCHEM HEART DIS AND OTH DI 06/22/2018 GABRIEL ZAVALA DO Ot Z85.3 PERSONAL HISTORY OF MALIGNANT NEOPLASM O 06/22/2018 GABRIEL ZAVALA DO Ot Z87.19 PERSONAL HISTORY OF OTHER DISEASES OF TH 06/22/2018 GABRIEL ZAVALA DO Ot Z87.448 PERSONAL HISTORY OF OTHER DISEASES OF UR 06/22/2018 GABRIEL ZAVALA DO Ot Z92.21 PERSONAL HISTORY OF ANTINEOPLASTIC CHEMO 06/22/2018 GABRIEL ZAVALA DO Ot Z98.890 OTHER SPECIFIED POSTPROCEDURAL STATES 06/23/2018 MARYANN PENG MD Ot E11.40 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 06/23/2018 MARYANN PENG MD Ot G47.33 OBSTRUCTIVE SLEEP APNEA (ADULT) (PEDIATR 06/23/2018 MARYANN PENG MD Ot I10 ESSENTIAL (PRIMARY) HYPERTENSION 06/23/2018 MARYANN PENG MD Ot K21 .9 GASTRO-ESOPHAGEAL 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 06/23/2018 MARYANN PENG MD Ot R04 .0 EPISTAXIS 06/23/2018 MARYANN PENG MD Ot Z79.01 PLATE STACKER HAND (CURRENT) USE OF ANTICOAGULANT 06/23/2018 MARYANN PENG MD Ot Z79.82 SHELTER (CURRENT) USE OF ASPIRIN 06/23/2018 MARYANN PENG MD Ot Z79.899 OTHER PLATE STACKER HAND (CURRENT) DRUG THERAPY 06/23/2018 MARYANN PENG MD Ot Z86.711 PERSONAL HISTORY OF PULMONARY EMBOLISM 06/28/2018 MARYANN PENG MD, Ot E11.40 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 06/28/2018 MARYANN PENG MD, Ot G47.33 OBSTRUCTIVE SLEEP APNEA (ADULT) (PEDIATR 06/28/2018 MARYANN PENG MD Ot I10 ESSENTIAL (PRIMARY) HYPERTENSION 06/28/2018 MARYANN PENG MD Ot K21 .9 GASTRO-ESOPHAGEAL 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 06/28/2018 MARYANN PENG MD Ot R04 .0 EPISTAXIS 06/28/2018 MARYANN PENG MD Ot Z79.01 SHELTER (CURRENT) USE OF ANTICOAGULANT 06/28/2018 MARYANN PENG MD Ot Z79.82 PLATE STACKER HAND (CURRENT) USE OF ASPIRIN 06/28/2018 DANISH CARRILLO, MARYANN Spicer Ot Z79.899 OTHER SHELTER (CURRENT) DRUG THERAPY 06/28/2018 DANISH CARRILLO, MARYANN Spicer Ot Z86.711 PERSONAL HISTORY OF PULMONARY EMBOLISM 07/06/2018 [facility], GABRIEL Ot E11.40 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 07/06/2018 [facility], GABRIEL Ot E11.621 TYPE 2 DIABETES MELLITUS WITH FOOT ULCER 07/06/2018 [facility], GABRIEL Ot E78.00 PURE HYPERCHOLESTEROLEMIA, UNSPECIFIED 07/06/2018 [facility], GABRIEL Ot F41.9 ANXIETY DISORDER, UNSPECIFIED 07/06/2018 [facility], GABRIEL Ot G47.30 SLEEP APNEA, UNSPECIFIED 07/06/2018 [facility], GABRIEL 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 07/06/2018 [facility], GABRIEL Ot I10 ESSENTIAL (PRIMARY) HYPERTENSION 07/06/2018 [facility], GABRIEL Ot L97.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- PRESSURE CHRONIC ULCER OTH PRT LEFT 07/06/2018 [facility], GABRIEL Ot Z79.01 PLATE STACKER HAND (CURRENT) USE OF ANTICOAGULANT 07/06/2018 [facility], GABRIEL Ot Z79.4 SHELTER (CURRENT) USE OF INSULIN 07/06/2018 [facility], GABRIEL Ot Z79.82 PLATE STACKER HAND (CURRENT) USE OF ASPIRIN 07/06/2018 [facility], GABRIEL Ot Z82.49 FAMILY HX OF ISCHEM HEART DIS AND OTH DI 07/06/2018 [facility], GABRIEL Ot Z85.3 PERSONAL HISTORY OF MALIGNANT NEOPLASM O 07/06/2018 [facility], GABRIEL Ot Z87.19 PERSONAL HISTORY OF OTHER DISEASES OF TH 07/06/2018 SALLY , GABRIEL Ot Z87.448 PERSONAL HISTORY OF OTHER DISEASES OF UR 07/06/2018 SALLY , GABRIEL Ot Z92.21 PERSONAL HISTORY OF ANTINEOPLASTIC CHEMO 07/06/2018 [facility], GABRIEL Ot Z98.890 OTHER SPECIFIED POSTPROCEDURAL STATES 08/07/2018 PABLITO HOWARD DO Ot E11.40 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 08/07/2018 PABLITO HOWARD DO Ot E78.00 PURE HYPERCHOLESTEROLEMIA, UNSPECIFIED 08/07/2018 PABLITO HOWARD DO, Ot F41 .9 ANXIETY DISORDER, UNSPECIFIED 08/07/2018 PABLITO HWOARD DO, Ot G47.30 SLEEP APNEA, UNSPECIFIED 08/07/2018 PABLITO HOWARD DO Ot I10 ESSENTIAL (PRIMARY) HYPERTENSION 08/07/2018 PABLITO HOWARD DO Ot R04 .0 EPISTAXIS 08/07/2018 PABLITO HOWARD DO, Ot Z79.01 SHELTER (CURRENT) USE OF ANTICOAGULANT 08/07/2018 PABLITO HOWARD DO, Ot Z79.82 SHELTER (CURRENT) USE OF ASPIRIN 08/07/2018 PABLITO HOWARD DO Ot Z79.84 SHELTER (CURRENT) USE OF ORAL HYPOGLYC 08/07/2018 PABLITO HOWARD DO, Ot Z82.49 FAMILY HX OF ISCHEM HEART DIS AND OTH DI 08/07/2018 PABLITO HOWARD DO, Ot Z85 .3 PERSONAL HISTORY OF MALIGNANT NEOPLASM O 08/07/2018 PABLITO HOWARD DO, Ot Z86.711 PERSONAL HISTORY OF PULMONARY EMBOLISM 08/09/2018 PABLITO HOWARD DO Ot E11.40 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 08/09/2018 PABLITO HOWARD DO, Ot E78.00 PURE HYPERCHOLESTEROLEMIA, UNSPECIFIED 08/09/2018 PABLITO HOWARD DO, Ot F41 .9 ANXIETY DISORDER, UNSPECIFIED 08/09/2018 PABLITO HOWARD DO, Ot G47.30 SLEEP APNEA, UNSPECIFIED 08/09/2018 PABLITO HOWARD DO Ot I10 ESSENTIAL (PRIMARY) HYPERTENSION 08/09/2018 PABLITO HOWARD DO Ot R04 .0 EPISTAXIS 08/09/2018 PABLITO HOWARD DO, Ot Z79.01 PLATE STACKER HAND (CURRENT) USE OF ANTICOAGULANT 08/09/2018 PABLITO HOWARD DO Ot Z79.82 SHELTER (CURRENT) USE OF ASPIRIN 08/09/2018 PABLITO HOWARD DO, Ot Z79.84 PLATE STACKER HAND (CURRENT) USE OF ORAL HYPOGLYC 08/09/2018 PABLITO HOWARD DO, Ot Z82.49 FAMILY HX OF ISCHEM HEART DIS AND OTH DI 08/09/2018 PABLITO HOWARD DO, Ot Z85 .3 PERSONAL HISTORY OF MALIGNANT NEOPLASM O 08/09/2018 PABLITO HOWARD DO, Ot Z86.711 PERSONAL HISTORY OF PULMONARY EMBOLISM 08/25/2018 ERENDIRA KEANE MD Ot S91.302A UNSPECIFIED OPEN WOUND, LEFT FOOT, INITI 08/25/2018 BRIANNA HERNANDEZ DO Ot E11.40 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 08/25/2018 HERNANDEZ DO, BRIANNA Ot E78.00 PURE HYPERCHOLESTEROLEMIA, UNSPECIFIED 08/25/2018 MARY SLOAN BRIANNA Ot F41.9 ANXIETY DISORDER, UNSPECIFIED 08/25/2018 MARY SLOAN BRIANNA Ot G25.81 RESTLESS LEGS SYNDROME 08/25/2018 MARY SLOAN BRIANNA Ot G47.30 SLEEP APNEA, UNSPECIFIED 08/25/2018 MARY SLOAN BRIANNA Ot I10 ESSENTIAL (PRIMARY) HYPERTENSION 08/25/2018 MARY SLOAN BRIANNA Ot K43.2 INCISIONAL HERNIA WITHOUT OBSTRUCTION OR 08/25/2018 HERNANDEZ DO BRIANNA Ot K56.60 0 PARTIAL INTESTINAL OBSTRUCTION, UNSPECIF 08/25/2018 MARY SLOAN BRIANNA Ot Z79.84 SHELTER (CURRENT) USE OF ORAL HYPOGLYC 08/25/2018 MARY SLOAN BRIANNA Ot Z85.3 PERSONAL HISTORY OF MALIGNANT NEOPLASM O 08/25/2018 MARY SLOAN BRIANNA Ot Z86.69 PERSONAL HISTORY OF DIS OF THE NERVOUS S 08/25/2018 MARY SLOAN BRIANNA Ot Z86.71 1 PERSONAL HISTORY OF PULMONARY EMBOLISM 08/25/2018 MARY SLOAN BRIANNA Ot Z92.21 PERSONAL HISTORY OF ANTINEOPLASTIC CHEMO 08/25/2018 MARY SLOAN BRIANNA Ot Z92.3 PERSONAL HISTORY OF IRRADIATION 08/25/2018 MARY SLOAN BRIANNA Ot C50.91 9 MALIGNANT NEOPLASM OF UNSP SITE OF UNSPE 08/25/2018 MARY SLOAN BRIANNA Ot E11.40 TYPE 2 DIABETES MELLITUS WITH [...] K43.2 INCISIONAL HERNIA WITHOUT OBSTRUCTION OR 08/25/2018 HERNANDEZ DO BRIANNA Ot K56.60 0 PARTIAL INTESTINAL OBSTRUCTION, UNSPECIF 08/25/2018 MARY SLOAN BRIANNA Ot K56.7 ILEUS, UNSPECIFIED 08/25/2018 MARY SLOAN BRIANNA Ot L97.32 9 NON-PRESSURE CHRONIC ULCER OF LEFT ANKLE 08/25/2018 MARY BRIANNA SLOAN Ot R04.0 EPISTAXIS 08/25/2018 MARY BRIANNA SLOAN Ot Z79.01 PLATE STACKER HAND (CURRENT) USE OF ANTICOAGULANT 08/25/2018 MARY DO BRIANNA Ot Z79.84 PLATE STACKER HAND (CURRENT) USE OF ORAL HYPOGLYC 08/25/2018 HERNANDEZBRIANNA [place] DO Ot Z85.3 PERSONAL HISTORY OF MALIGNANT NEOPLASM O 08/25/2018 HERNANDEZ BRIANNA SLOAN Ot Z86.69 PERSONAL HISTORY OF DIS OF THE NERVOUS S 08/25/2018 HERNANDEZBRIANNA [place] DO Ot Z86.71 1 PERSONAL HISTORY OF PULMONARY EMBOLISM 08/25/2018 HERNANDEZBRIANNA [place] DO Ot Z86.71 8 PERSONAL HISTORY OF OTHER VENOUS THROMBO 08/25/2018 HERNANDEZBRIANNA [place] DO Ot Z92.21 PERSONAL HISTORY OF ANTINEOPLASTIC CHEMO 08/25/2018 HERNANDEZBRIANNA [place] DO Ot Z92.3 PERSONAL HISTORY OF IRRADIATION 08/25/2018 HERNANDEZBRIANNA [place] DO Ot Z99.81 DEPENDENCE ON SUPPLEMENTAL OXYGEN 08/27/2018 DIYA CARRILLO, ERENDIRA Keith Ot S91.302A UNSPECIFIED OPEN WOUND, LEFT FOOT, INITI 09/06/2018 YENIFER CARRILLO, MARIZOL Whitehead Ot B96. 20 UNSP ESCHERICHIA COLI THE CAUSE OF DI 09/06/[address] MD Ot E11. 9 TYPE 2 DIABETES MELLITUS WITHOUT COMPLIC 09/06/[address] MD Ot E78. 00 PURE HYPERCHOLESTEROLEMIA, UNSPECIFIED 09/06/[address] MD Ot E86. 0 DEHYDRATION 09/06/[address] MD Ot E87. 1 HYPO-OSMOLALITY AND HYPONATREMIA 09/06/[address] MD Ot F41. 9 ANXIETY DISORDER, UNSPECIFIED 09/06/[address] MD Ot F79 UNSPECIFIED INTELLECTUAL DISABILITIES 09/06/[address] MD Ot G25. 81 RESTLESS LEGS SYNDROME 09/06/[address] MD Ot G47. 30 SLEEP APNEA, UNSPECIFIED 09/06/[address] MD Ot G61. 0 GUILLAIN-BARRE SYNDROME 09/06/[address] MD Ot H91. 93 UNSPECIFIED HEARING LOSS, BILATERAL 09/06/[address] MD Ot I10 ESSENTIAL (PRIMARY) HYPERTENSION 09/06/[address] MD Ot M19. 91 PRIMARY OSTEOARTHRITIS, UNSPECIFIED SITE 09/06/2018 [address] MD Ot N39. 0 URINARY TRACT INFECTION, SITE NOT SPECIF 09/06/[address] MD Ot R04. 0 EPISTAXIS 09/06/[address] MD Ot R26. 9 UNSPECIFIED ABNORMALITIES OF GAIT AND MO 09/06/[address] MD Ot R32 UNSPECIFIED URINARY INCONTINENCE 09/06/[address] MD Ot R53. 1 WEAKNESS 09/06/[address] MD Ot Z79. 01 SHELTER (CURRENT) USE OF ANTICOAGULANT 09/06/[address] MD Ot Z85. 3 PERSONAL HISTORY OF MALIGNANT NEOPLASM O 09/06/[address] MD Ot Z86.711 PERSONAL HISTORY OF PULMONARY EMBOLISM 09/06/[address] MD Ot Z92. 21 PERSONAL HISTORY OF ANTINEOPLASTIC CHEMO 09/06/[address] MD Ot Z92. 3 PERSONAL HISTORY OF IRRADIATION 09/06/[address] MD Ot Z97. 4 PRESENCE OF EXTERNAL HEARING-AID 09/06/[address] MD Ot Z99. 81 DEPENDENCE ON SUPPLEMENTAL OXYGEN 09/07/[address] MD Ot E11. 9 TYPE 2 DIABETES MELLITUS WITHOUT COMPLIC 09/07/[address] MD Ot E78. 00 PURE HYPERCHOLESTEROLEMIA, UNSPECIFIED 09/07/[address] MD Ot E86. 0 DEHYDRATION 09/07/[address] MD Ot E87. 1 HYPO-OSMOLALITY AND HYPONATREMIA 09/07/[address] MD Ot F41. 9 ANXIETY DISORDER, UNSPECIFIED 09/07/[address] MD Ot F79 UNSPECIFIED INTELLECTUAL DISABILITIES 09/07/[address] MD Ot G25. 81 RESTLESS LEGS SYNDROME 09/07/[address] MD Ot G47. 30 SLEEP APNEA, UNSPECIFIED 09/07/[address] MD Ot G61. 0 GUILLAIN-BARRE SYNDROME 09/07/[address] MD Ot H91. 93 UNSPECIFIED HEARING LOSS, BILATERAL 09/07/[address] MD Ot I10 ESSENTIAL (PRIMARY) HYPERTENSION 09/07/2018 YENIFER CARRILLO, MARIZOL Whitehead Ot M19. 91 PRIMARY OSTEOARTHRITIS, UNSPECIFIED SITE 09/07/[address] MD Ot R04. 0 EPISTAXIS 09/07/[address] MD Ot R26. 9 UNSPECIFIED ABNORMALITIES OF GAIT AND MO 09/07/[address] MD Ot R32 UNSPECIFIED URINARY INCONTINENCE 09/07/[address] MD Ot R53. 1 WEAKNESS 09/07/[address] MD Ot Z79. 01 PLATE STACKER HAND (CURRENT) USE OF ANTICOAGULANT 09/07/2018 YENIFER CARRILLO, MARIZOL Whitehead Ot Z85. 3 PERSONAL HISTORY OF MALIGNANT NEOPLASM O 09/07/[address] MD Ot Z86.711 PERSONAL HISTORY OF PULMONARY EMBOLISM 09/07/[address] MD Ot Z92. 21 PERSONAL HISTORY OF ANTINEOPLASTIC CHEMO 09/07/[address] MD Ot Z92. 3 PERSONAL HISTORY OF IRRADIATION 09/07/[address] MD Ot Z97. 4 PRESENCE OF EXTERNAL HEARING-AID 09/07/[address] MD Ot Z99. 81 DEPENDENCE ON SUPPLEMENTAL OXYGEN 09/07/[address] MD Ot E11. 9 TYPE 2 DIABETES MELLITUS WITHOUT COMPLIC 09/07/[address] MD Ot E78. 00 PURE HYPERCHOLESTEROLEMIA, UNSPECIFIED 09/07/[address] MD Ot E86. 0 DEHYDRATION 09/07/[address] MD Ot E87. 1 HYPO-OSMOLALITY AND HYPONATREMIA 09/07/[address] MD Ot F41. 9 ANXIETY DISORDER, UNSPECIFIED 09/07/[address] MD Ot F79 UNSPECIFIED INTELLECTUAL DISABILITIES 09/07/[address] MD Ot G25. 81 RESTLESS LEGS SYNDROME 09/07/[address] MD Ot G47. 30 SLEEP APNEA, UNSPECIFIED 09/07/[address] MD Ot G61. 0 GUILLAIN-BARRE SYNDROME 09/07/[address] MD Ot H91. 93 UNSPECIFIED HEARING LOSS, BILATERAL 09/07/[address] MD Ot I10 ESSENTIAL (PRIMARY) HYPERTENSION 09/07/[address] MD Ot M19. 91 PRIMARY OSTEOARTHRITIS, UNSPECIFIED SITE 09/07/[address] MD Ot R04. 0 EPISTAXIS 09/07/[address] MD Ot R26. 9 UNSPECIFIED ABNORMALITIES OF GAIT AND MO 09/07/[address] MD Ot R32 UNSPECIFIED URINARY INCONTINENCE 09/07/[address] MD Ot R53. 1 WEAKNESS 09/07/[address] MD Ot Z79. 01 PLATE STACKER HAND (CURRENT) USE OF ANTICOAGULANT 09/07/[address] MD Ot Z85. 3 PERSONAL HISTORY OF MALIGNANT NEOPLASM O 09/07/[address] MD Ot Z86.711 PERSONAL HISTORY OF PULMONARY EMBOLISM 09/07/[address] MD Ot Z92. 21 PERSONAL HISTORY OF ANTINEOPLASTIC CHEMO 09/07/[address] MD Ot Z92. 3 PERSONAL HISTORY OF IRRADIATION 09/07/[address] MD Ot Z97. 4 PRESENCE OF EXTERNAL HEARING-AID 09/07/[address] MD Ot Z99. 81 DEPENDENCE ON SUPPLEMENTAL OXYGEN 09/07/[address] MD Ot E11. 9 TYPE 2 DIABETES MELLITUS WITHOUT COMPLIC 09/07/[address] MD Ot E78. 00 PURE HYPERCHOLESTEROLEMIA, UNSPECIFIED 09/07/[address] MD Ot E86. 0 DEHYDRATION 09/07/[address] MD Ot E87. 1 HYPO-OSMOLALITY AND HYPONATREMIA 09/07/[address] MD Ot F41. 9 ANXIETY DISORDER, UNSPECIFIED 09/07/[address] MD Ot F79 UNSPECIFIED INTELLECTUAL DISABILITIES 09/07/[address] MD Ot G25. 81 RESTLESS LEGS SYNDROME 09/07/[address] MD Ot G47. 30 SLEEP APNEA, UNSPECIFIED 09/07/[address] MD Ot G61. 0 GUILLAIN-BARRE SYNDROME 09/07/[address] MD Ot H91. 93 UNSPECIFIED HEARING LOSS, BILATERAL 09/07/[address] MD Ot I10 ESSENTIAL (PRIMARY) HYPERTENSION 09/07/[address] MD Ot M19. 91 PRIMARY OSTEOARTHRITIS, UNSPECIFIED SITE 09/07/[address] MD Ot R04. 0 EPISTAXIS 09/07/[address] MD Ot R26. 9 UNSPECIFIED ABNORMALITIES OF GAIT AND MO 09/07/[address] MD Ot R32 UNSPECIFIED URINARY INCONTINENCE 09/07/[address] MD Ot R53. 1 WEAKNESS 09/07/[address] MD Ot Z79. 01 PLATE STACKER HAND (CURRENT) USE OF ANTICOAGULANT 09/07/[address] MD Ot Z85. 3 PERSONAL HISTORY OF MALIGNANT NEOPLASM O 09/07/[address] MD Ot Z86.711 PERSONAL HISTORY OF PULMONARY EMBOLISM 09/07/[address] MD Ot Z92. 21 PERSONAL HISTORY OF ANTINEOPLASTIC CHEMO 09/07/[address] MD Ot Z92. 3 PERSONAL HISTORY OF IRRADIATION 09/07/[address] MD Ot Z97. 4 PRESENCE OF EXTERNAL HEARING-AID 09/07/[address] MD Ot Z99. 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 11/01/2018 ARACELI QUEEN [employer] Ot E11.52 TYPE 2 DIABETES W DIABETIC PERIPHERAL AN 11/01/2018 ARACELI QUEEN [employer] TENDER Ot E11.622 TYPE 2 DIABETES MELLITUS WITH OTHER SKIN 11/01/2018 ARACELI QUEEN [employer] TENDER Ot I 96 GANGRENE, NOT ELSEWHERE CLASSIFIED 11/01/2018 ARACELI QUEEN [employer] TENDER Ot L97.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 11/09/2018 ARACELI QUEEN [employer] TENDER Ot E11.52 TYPE 2 DIABETES W DIABETIC PERIPHERAL AN 11/09/2018 ARACELI QUEEN [employer] TENDER Ot E11.622 TYPE 2 DIABETES MELLITUS WITH OTHER SKIN 11/09/2018 ARACELI QUEEN [employer] TENDER Ot I 96 GANGRENE, NOT ELSEWHERE CLASSIFIED 11/09/2018 ARACELI QUEEN [employer] TENDER Ot L97.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 11/15/2018 ARACELI QUEEN [employer] TENDER Ot E11.622 TYPE 2 DIABETES MELLITUS WITH OTHER SKIN 11/15/2018 ARACELI QUEEN [employer] TEND[employer] Ot L97.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 12/06/2018 PABLITO PATHAK MD Ot M79.8 9 OTHER SPECIFIED SOFT TISSUE DISORDERS 12/06/2018 PABLITO PATHAK MD Ot M86.6 72 OTHER CHRONIC OSTEOMYELITIS, LEFT ANKLE 12/06/2018 PABLITO PATAHK MD Ot S90.822A BLISTER (NONTHERMAL), LEFT FOOT, INITIAL 12/19/2018 PABLITO PATHAK MD Ot M79.8 9 OTHER SPECIFIED SOFT TISSUE DISORDERS 12/19/2018 PABLITO PATHAK MD Ot M86.6 72 OTHER CHRONIC OSTEOMYELITIS, LEFT ANKLE 12/19/2018 PABLITO PATHAK MD Ot S90.822A BLISTER (NONTHERMAL), LEFT FOOT, INITIAL 01/01/2019 PORTILLO DO, SORIN L Ot E11.4 0 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 01/01/2019 PORTILLO DO, SORIN L Ot E78.0 0 PURE HYPERCHOLESTEROLEMIA, UNSPECIFIED 01/01/2019 PORTILLO DO, SORIN L Ot F03.9 0 UNSPECIFIED DEMENTIA WITHOUT BEHAVIORAL 01/01/2019 PORTILLO DO, SORIN L Ot F41.9 ANXIETY DISORDER, UNSPECIFIED 01/01/2019 PORTILLO DO, SORIN L Ot G47.3 0 SLEEP APNEA, UNSPECIFIED 01/01/2019 PORTILLO DO, SORIN L Ot I10 ESSENTIAL (PRIMARY) HYPERTENSION 01/01/2019 PORTILLO DO, SORIN L Ot R04.0 EPISTAXIS 01/01/2019 PORTILLO DO, SORIN L Ot Z79.5 1 PLATE STACKER HAND (CURRENT) USE OF INHALED STERO 01/01/2019 PORTILLO DO, SORIN L Ot Z79.8 2 PLATE STACKER HAND (CURRENT) USE OF ASPIRIN 01/01/2019 PORTILLO DO, SORIN L Ot Z79.8 4 PLATE STACKER HAND (CURRENT) USE OF ORAL HYPOGLYC 01/01/2019 PORTILLO DO, SORIN L Ot Z82.4 9 FAMILY HX OF ISCHEM HEART DIS AND OTH DI 01/01/2019 PORTILLO DO, SORIN L Ot Z85.3 PERSONAL HISTORY OF MALIGNANT NEOPLASM O 01/01/2019 PORTILLO DO, SORIN L Ot Z86.7 11 PERSONAL HISTORY OF PULMONARY EMBOLISM 01/07/2019 PORTILLO DO, SORIN L Ot E11.4 0 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 01/07/2019 PORTILLO DO, SORIN L Ot E78.0 0 PURE HYPERCHOLESTEROLEMIA, UNSPECIFIED 01/07/2019 PORTILLO DO, SORIN L Ot F03.9 0 UNSPECIFIED DEMENTIA WITHOUT BEHAVIORAL 01/07/2019 PORTILLO DO, SORIN L Ot F41.9 ANXIETY DISORDER, UNSPECIFIED 01/07/2019 PORTILLO DO, SORIN L Ot G47.3 0 SLEEP APNEA, UNSPECIFIED 01/07/2019 PORTILLO DO, SORIN L Ot I10 ESSENTIAL (PRIMARY) HYPERTENSION 01/07/2019 PORTILLO DO, SORIN L Ot R04.0 EPISTAXIS 01/07/2019 PORTILLO DO, SORIN L Ot Z79.5 1 SHELTER (CURRENT) USE OF INHALED STERO 01/07/2019 PORTILLO DO, SORIN L Ot Z79.8 2 SHELTER (CURRENT) USE OF ASPIRIN 01/07/2019 PORTILLO DO, SORIN L Ot Z79.8 4 PLATE STACKER HAND (CURRENT) USE OF ORAL HYPOGLYC 01/07/2019 PORTILLO DO, SORIN L Ot Z82.4 9 FAMILY HX OF ISCHEM HEART DIS AND OTH DI 01/07/2019 PORTILLO DO, SORIN L Ot Z85.3 PERSONAL HISTORY OF MALIGNANT NEOPLASM O 01/07/2019 PORTILLO DO, SORIN L Ot Z86.7 11 PERSONAL HISTORY OF PULMONARY EMBOLISM 01/10/2019 ANAMARIA VELARDE MD Ot E11.40 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 01/10/2019 ANAMARIA VELARDE MD Ot E78.00 PURE HYPERCHOLESTEROLEMIA, UNSPECIFIED 01/10/2019 ANAMARIA VELARDE MD Ot F03.90 UNSPECIFIED DEMENTIA WITHOUT BEHAVIORAL 01/10/2019 ANAMARIA VELARDE MD Ot F41.9 ANXIETY DISORDER, UNSPECIFIED 01/10/2019 ANAMARIA VELARDE MD Ot I1 0 ESSENTIAL (PRIMARY) HYPERTENSION 01/10/2019 ANAMARIA VELARDE MD Ot R04.0 EPISTAXIS 01/10/2019 ANAMARIA VELARDE MD Ot Z79.01 SHELTER (CURRENT) USE OF ANTICOAGULANT 01/10/2019 ANAMARIA VELARDE MD Ot Z79.51 SHELTER (CURRENT) USE OF INHALED STERO 01/10/2019 ANAMARIA VELARDE MD Ot Z79.82 SHELTER (CURRENT) USE OF ASPIRIN 01/10/2019 ANAMARIA VELARDE MD Ot Z79.84 PLATE STACKER HAND (CURRENT) USE OF ORAL HYPOGLYC 01/10/2019 ANAMARIA VELARDE MD Ot Z82.49 FAMILY HX OF ISCHEM HEART DIS AND OTH DI 01/10/2019 ANAMARIA VELARDE MD, Ot Z85.3 PERSONAL HISTORY OF MALIGNANT NEOPLASM O 01/10/2019 ANAMARIA VELARDE MD, Ot Z86.711 PERSONAL HISTORY OF PULMONARY EMBOLISM 01/17/2019 ANAMARIA VELARDE MD Ot E11.40 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 01/17/2019 ANAMARIA VELARDE MD, Ot E78.00 PURE HYPERCHOLESTEROLEMIA, UNSPECIFIED 01/17/2019 ANAMARIA VELARDE MD, Ot F03.90 UNSPECIFIED DEMENTIA WITHOUT BEHAVIORAL 01/17/2019 ANAMARIA VELARDE MD, Ot F41.9 ANXIETY DISORDER, UNSPECIFIED 01/17/2019 ANAMARIA VELARDE MD Ot I1 0 ESSENTIAL (PRIMARY) HYPERTENSION 01/17/2019 ANAMARIA VELARDE MD Ot R04.0 EPISTAXIS 01/17/2019 ANAMARIA VELARDE MD, Ot Z79.01 PLATE STACKER HAND (CURRENT) USE OF ANTICOAGULANT 01/17/2019 ANAMARIA VELARDE MD Ot Z79.51 PLATE STACKER HAND (CURRENT) USE OF INHALED STERO 01/17/2019 ANAMARIA VELARDE MD Ot Z79.82 SHELTER (CURRENT) USE OF ASPIRIN 01/17/2019 ANAMARIA VELARDE MD Ot Z79.84 SHELTER (CURRENT) USE OF ORAL HYPOGLYC 01/17/2019 ANAMARIA VELARDE MD Ot Z82.49 FAMILY HX OF ISCHEM HEART DIS AND OTH DI 01/17/2019 ANAMARIA VELARDE MD Ot Z85.3 PERSONAL HISTORY OF MALIGNANT NEOPLASM O 01/17/2019 ANAMARIA VELARDE MD Ot Z86.711 PERSONAL HISTORY OF PULMONARY EMBOLISM Procedures Code Description Performed By Per formed On [id number] EX CISION OF L FOOT SUBCU/FASCIA, OPEN AP 06/09/2018 [id number] EX CISION OF L FOOT SUBCU/FASCIA, OPEN AP 06/14/[id number] NUNEZ OF STOMACH WITH DRAINAGE DEVICE 08/22/2018 Results Test Result Range Complete blood count (CBC) with automate d white blood cell (WBC) differential - 01/23/17 05:55 Blood leukocytes automated count (number/volume) 6.6 10*3/uL 4.3-11.0 Blood erythrocytes automated count (number/volume) 3.87 10*6/uL 4.35-5.85 Venous blood hemoglobin measurement (mass/volume) 12.8 g/dL 11.5-16.0 Blood hematocrit (volume fraction) 38 % 35-52 Automated erythrocyte mean corpuscular volume 98 [ foz_us] 80-99 Automated erythrocyte mean corpuscular h emoglobin (mass per erythrocyte) 33 pg 25-34 Automated erythrocyte mean corpuscular h emoglobin concentration measurement (mass/volume) 34 g/dL 32-36 Automated erythrocyte distribution width ratio 12. 8 % 10.0- 14.5 Automated blood platelet count [...] 10*3 1.0-4.0 Blood monocytes automated count (number/volume) 0. 7 10*3 0.0-1.0 Automated eosinophil count 0.2 10*3/uL 0 .0-0.3 Automated blood basophil count (count/volume) 0.1 10*3/uL 0.0-0.1 PT panel in platelet poor plasma by coag ulation assay - 01/23/17 05:55 Prothrombin time (PT) in platelet poor plasma by coagu lation assay 14.2 s 12.2-14.7 INR in platelet poor plasma or blood by coagulation as say 1.1 0.8-1.4 Activated partial thromboplastin time (a PTT) in platelet poor plasma bycoagulation assay - 01/23/17 05:55 Activated partial thromboplastin time (a PTT) in platelet poor plasma bycoagulation assay 37 s 24-35 Comprehensive metabolic panel - 01/23/17 05:55 Serum or plasma sodium measurement (moles/volume) 137 mmol/L 135-145 Serum or plasma potassium measurement (moles/volume) 4.7 mmol/L 3.6-5.0 Serum or plasma chloride measurement (moles/volume) 103 mmol/L 98-107 Carbon dioxide 22 mmol/L 21-32 Serum or plasma anion gap determination (moles/volume) 12 mmol/L 5-14 Serum or plasma urea nitrogen measurement (mass/volume ) 39 mg/dL 7-18 Serum or plasma creatinine measurement (mass/volume) 0.87 mg/dL 0.60-1.30 Serum or plasma urea nitrogen/creatinine mass ratio 45 NRG Serum or plasma creatinine measurement w ith calculation of estimated glomerular filtration rate > NRG Serum or plasma glucose measurement (mass/volume) 186 mg/dL 70-105 Serum or plasma calcium measurement (mass/volume) 9.8 mg/dL 8.5-10.1 Serum or plasma total bilirubin measurement (mass/volu me) 0.3 mg/dL 0.1-1.0 Serum or plasma alkaline phosphatase kathy surement (enzymatic activity/volume) 66 U/L 40-136 Serum or plasma aspartate aminotransfera se measurement (enzymatic activity/volume) 16 U/L 5-34 Serum or plasma alanine aminotransferase measurement (enzymatic activity/volume) 21 U/L 0-55 Serum or plasma protein measurement (mass/volume) 7.1 g/dL 6.4-8.2 Serum or plasma albumin measurement (mass/volume) 4.1 g/dL 3.2-4.5 Capillary blood glucose measurement by g lucometer (mass/volume) - 03/08/18 00:46 Capillary blood glucose measurement by glucometer (mas s/volume) 171 mg/dL 70-110 Capillary blood glucose measurement by g lucometer (mass/volume) - 03/08/18 05:21 Capillary blood glucose measurement by glucometer (mas s/volume) 150 mg/dL 70-110 Complete blood count (CBC) with automate d white blood cell (WBC) differential - 03/08/18 07:00 Blood leukocytes automated count (number/volume) 7.7 10*3/uL 4.3-11.0 Blood erythrocytes automated count (number/volume) 3.88 10*6/uL 4.35-5.85 Venous blood hemoglobin measurement (mass/volume) 12.8 g/dL 11.5-16.0 Blood hematocrit (volume fraction) 38 % 35-52 Automated erythrocyte mean corpuscular volume 98 [ foz_us] 80-99 Automated erythrocyte mean corpuscular h emoglobin (mass per erythrocyte) 33 pg 25-34 Automated erythrocyte mean corpuscular h emoglobin concentration measurement (mass/volume) 34 g/dL 32-36 Automated erythrocyte distribution width ratio 13. 4 % 10.0- 14.5 Automated blood platelet count [...] 10*3 1.0-4.0 Blood monocytes automated count (number/volume) 0. 8 10*3 0.0-1.0 Automated eosinophil count 0.1 10*3/uL 0 .0-0.3 Automated blood basophil count (count/volume) 0.0 10*3/uL 0.0-0.1 Whole blood basic metabolic panel - 02/09 07:00 Serum or plasma sodium measurement (moles/volume) 135 mmol/L 135-145 Serum or plasma potassium measurement (moles/volume) 5.8 mmol/L 3.6-5.0 Serum or plasma chloride measurement (moles/volume) 104 mmol/L 98-107 Carbon dioxide 21 mmol/L 21-32 Serum or plasma anion gap determination (moles/volume) 10 mmol/L 5-14 Serum or plasma urea nitrogen measurement (mass/volume ) 37 mg/dL 7-18 Serum or plasma creatinine measurement (mass/volume) 0.99 mg/dL 0.60-1.30 Serum or plasma urea nitrogen/creatinine mass ratio 37 NRG Serum or plasma creatinine measurement w ith calculation of estimated glomerular filtration rate 55 NRG Serum or plasma glucose measurement (mass/volume) 159 mg/dL 70-105 Serum or plasma calcium measurement (mass/volume) 9.4 mg/dL 8.5-10.1 Capillary blood glucose measurement by g lucometer (mass/volume) - 03/08/18 11:17 Capillary blood glucose measurement by glucometer (mas s/volume) 161 mg/dL 70-110 Capillary blood glucose measurement by g lucometer (mass/volume) - 03/09/18 00:08 Capillary blood glucose measurement by glucometer (mas s/volume) 132 mg/dL 70-110 Capillary blood glucose measurement by g lucometer (mass/volume) - 03/09/18 05:06 Capillary blood glucose measurement by glucometer (mas s/volume) 152 mg/dL 70-110 Complete blood count (CBC) with automate d white blood cell (WBC) differential - 03/09/18 07:45 Blood leukocytes automated count (number/volume) 7.5 10*3/uL 4.3-11.0 Blood erythrocytes automated count (number/volume) 4.10 10*6/uL 4.35-5.85 Venous blood hemoglobin measurement (mass/volume) 13.3 g/dL 11.5-16.0 Blood hematocrit (volume fraction) 41 % 35-52 Automated erythrocyte mean corpuscular volume 99 [ foz_us] 80-99 Automated erythrocyte mean corpuscular h emoglobin (mass per erythrocyte) 32 pg 25-34 Automated erythrocyte mean corpuscular h emoglobin concentration measurement (mass/volume) 33 g/dL 32-36 Automated erythrocyte distribution width ratio 13. 1 % 10.0- 14.5 Automated blood platelet count [...] 10*3 1.0-4.0 Blood monocytes automated count (number/volume) 0. 7 10*3 0.0-1.0 Automated eosinophil count 0.2 10*3/uL 0 .0-0.3 Automated blood basophil count (count/volume) 0.0 10*3/uL 0.0-0.1 Whole blood basic metabolic panel - 02/09 02/25 07:45 Serum or plasma sodium measurement (moles/volume) 137 mmol/L 135-145 Serum or plasma potassium measurement (moles/volume) 4.7 mmol/L 3.6-5.0 Serum or plasma chloride measurement (moles/volume) 105 mmol/L 98-107 Carbon dioxide 21 mmol/L 21-32 Serum or plasma anion gap determination (moles/volume) 11 mmol/L 5-14 Serum or plasma urea nitrogen measurement (mass/volume ) 31 mg/dL 7-18 Serum or plasma creatinine measurement (mass/volume) 0.86 mg/dL 0.60-1.30 Serum or plasma urea nitrogen/creatinine mass ratio 36 NRG Serum or plasma creatinine measurement w ith calculation of estimated glomerular filtration rate > NRG Serum or plasma glucose measurement (mass/volume) 154 mg/dL 70-105 Serum or plasma calcium measurement (mass/volume) 9.5 mg/dL 8.5-10.1 Capillary blood glucose measurement by g lucometer (mass/volume) - 03/09/18 11:46 Capillary blood glucose measurement by glucometer (mas s/volume) 233 mg/dL 70-110 Capillary blood glucose measurement by g lucometer (mass/volume) - 03/09/18 16:04 Capillary blood glucose measurement by glucometer (mas s/volume) 161 mg/dL 70-110 Capillary blood glucose measurement by g lucometer (mass/volume) - 03/09/18 20:42 Capillary blood glucose measurement by glucometer (mas s/volume) 167 mg/dL 70-110 Capillary blood glucose measurement by g lucometer (mass/volume) - 03/10/18 06:09 Capillary blood glucose measurement by glucometer (mas s/volume) 136 mg/dL 70-110 Capillary blood glucose measurement by g lucometer (mass/volume) - 03/10/18 11:09 Capillary blood glucose measurement by glucometer (mas s/volume) 213 mg/dL 70-110 Complete blood count (CBC) with automate d white blood cell (WBC) differential - 05/07/18 20:11 Blood leukocytes automated count (number/volume) 9.1 10*3/uL 4.3-11.0 Blood erythrocytes automated count (number/volume) 3.98 10*6/uL 4.35-5.85 Venous blood hemoglobin measurement (mass/volume) 13.2 g/dL 11.5-16.0 Blood hematocrit (volume fraction) 40 % 35-52 Automated erythrocyte mean corpuscular volume 100 [foz_us] 80-99 Automated erythrocyte mean corpuscular h emoglobin (mass per erythrocyte) 33 pg 25-34 Automated erythrocyte mean corpuscular h emoglobin concentration measurement (mass/volume) 33 g/dL 32-36 Automated erythrocyte distribution width ratio 12. 9 % 10.0- 14.5 Automated blood platelet count [...] 10*3 1.0-4.0 Blood monocytes automated count (number/volume) 0. 8 10*3 0.0-1.0 Automated eosinophil count 0.3 10*3/uL 0 .0-0.3 Automated blood basophil count (count/volume) 0.1 10*3/uL 0.0-0.1 Comprehensive metabolic panel - 05/07/18 20:11 Serum or plasma sodium measurement (moles/volume) 136 mmol/L 135-145 Serum or plasma potassium measurement (moles/volume) 6.6 mmol/L 3.6-5.0 Serum or plasma chloride measurement (moles/volume) 99 mmol/L 98-107 Carbon dioxide 25 mmol/L 21-32 Serum or plasma anion gap determination (moles/volume) 12 mmol/L 5-14 Serum or plasma urea nitrogen measurement (mass/volume ) 35 mg/dL 7-18 Serum or plasma creatinine measurement (mass/volume) 0.85 mg/dL 0.60-1.30 Serum or plasma urea nitrogen/creatinine mass ratio 41 NRG Serum or plasma creatinine measurement w ith calculation of estimated glomerular filtration rate > NRG Serum or plasma glucose measurement (mass/volume) 145 mg/dL 70-105 Serum or plasma calcium measurement (mass/volume) 10.3 mg/dL 8.5-10.1 Serum or plasma total bilirubin measurement (mass/volu me) 0.2 mg/dL 0.1-1.0 Serum or plasma alkaline phosphatase kathy surement (enzymatic activity/volume) 71 U/L 40-136 Serum or plasma aspartate aminotransfera se measurement (enzymatic activity/volume) 22 U/L 5-34 Serum or plasma alanine aminotransferase measurement (enzymatic activity/volume) 22 U/L 0-55 Serum or plasma protein measurement (mass/volume) 8.1 g/dL 6.4-8.2 Serum or plasma albumin measurement (mass/volume) 4.9 g/dL 3.2-4.5 Lipase - 05/07/18 20:11 Lipase 33 U/L 8-78 Complete urinalysis with reflex to cultu re - 05/07/18 20:21 Urine color determination ROXANNA NRG Urine clarity determination CLOUDY NR G Urine pH measurement by test strip 6.0 5-9 Specific gravity of urine by test strip 1.015 1.016-1.022 Urine protein assay by test strip, semi-quantitative 2+ NEGATIVE Urine glucose detection by automated test strip NE GATIVE NEGATIVE Erythrocytes detection in urine sediment by light micr oscopy 3+ NEGATIVE Urine ketones detection by automated test strip NE GATIVE NEGATIVE Urine nitrite detection by test strip POSITIVE NEGATIVE Urine total bilirubin detection by test strip NEGA TIVE NEGATIVE Urine urobilinogen measurement by automated test strip (mass/volume) 0.2 mg/dL NORMAL Urine leukocyte esterase detection by dipstick 1+ NEGATIVE Automated urine sediment erythrocyte cou nt by microscopy (number/high power field) > [HPF] NRG Automated urine sediment leukocyte count by microscopy (number/high power field) [HPF] NRG Bacteria detection in urine sediment by light microsco py MODERATE NRG Squamous epithelial cells detection in u rine sediment by light microscopy 0-2 NRG Crystals detection in urine sediment by light microsco py NONE NRG Casts detection in urine sediment by light microscopy NONE NRG Mucus detection in urine sediment by light microscopy NONE NRG Complete urinalysis with reflex to culture YES NRG Bacterial urine culture - 05/07/18 20:21 Bacterial urine culture [id number] NRG COLONY COUNT >100,000/ML NRG FTX;REPORTABLE SENSITIVITY REPORTED 05/10/18 15:05 NRG FREE TEXT ENTRY 2 ID REPORTED 05/09/18 16:05 NRG RML Sensitivity Panel - 05/07/18 20:21 Gentamicin susceptibility test by minimum inhibitory c oncentration <= NRG Trimethoprim/sulfamethoxazole susceptibi lity test by minimum inhibitoryconcentration <= NRG Levofloxacin susceptibility test by minimum inhibitory concentration <= NRG Ampicillin susceptibility test by minimum inhibitory c oncentration <= NRG Cefazolin susceptibility test by minimum inhibitory co ncentration 2 NRG Ceftriaxone susceptibility test by minimum inhibitory concentration <= NRG Ciprofloxacin susceptibility test by minimum inhibitor y concentration <= NRG Meropenem susceptibility test by minimum inhibitory co ncentration < NRG Nitrofurantoin susceptibility test by mi nimum inhibitory concentration <= NRG Amoxicillin and clavulanate potassium susc TREVOR <= NRG Serum or plasma potassium measurement (m oles/volume) - 05/07/18 22:13 Serum or plasma potassium measurement (moles/volume) 6.3 mmol/L 3.6-5.0 Whole blood basic metabolic panel - 06/25 13:50 Serum or plasma sodium measurement (moles/volume) 134 mmol/L 135-145 Serum or plasma potassium measurement (moles/volume) 5.2 mmol/L 3.6-5.0 Serum or plasma chloride measurement (moles/volume) 95 mmol/L 98-107 Carbon dioxide 25 mmol/L 21-32 Serum or plasma anion gap determination (moles/volume) 14 mmol/L 5-14 Serum or plasma urea nitrogen measurement (mass/volume ) 37 mg/dL 7-18 Serum or plasma creatinine measurement (mass/volume) 0.97 mg/dL 0.60-1.30 Serum or plasma urea nitrogen/creatinine mass ratio 38 NRG Serum or plasma creatinine measurement w ith calculation of estimated glomerular filtration rate 56 NRG Serum or plasma glucose measurement (mass/volume) 158 mg/dL 70-105 Serum or plasma calcium measurement (mass/volume) 9.8 mg/dL 8.5-10.1 Complete blood count (CBC) with automate d white blood cell (WBC) differential - 06/11/18 10:00 Blood leukocytes automated count (number/volume) 4.3 10*3/uL 4.3-11.0 Blood erythrocytes automated count (number/volume) 4.03 10*6/uL 4.35-5.85 Venous blood hemoglobin measurement (mass/volume) 13.4 g/dL 11.5-16.0 Blood hematocrit (volume fraction) 40 % 35-52 Automated erythrocyte mean corpuscular volume 99 [ foz_us] 80-99 Automated erythrocyte mean corpuscular h emoglobin (mass per erythrocyte) 33 pg 25-34 Automated erythrocyte mean corpuscular h emoglobin concentration measurement (mass/volume) 34 g/dL 32-36 Automated erythrocyte distribution width ratio 13. 2 % 10.0- 14.5 Automated blood platelet count [...] 10*3 1.0-4.0 Blood monocytes automated count (number/volume) 0. 6 10*3 0.0-1.0 Automated eosinophil count 0.2 10*3/uL 0 .0-0.3 Automated blood basophil count (count/volume) 0.1 10*3/uL 0.0-0.1 Comprehensive metabolic panel - 06/11/18 10:00 Serum or plasma sodium measurement (moles/volume) 138 mmol/L 135-145 Serum or plasma potassium measurement (moles/volume) 6.6 mmol/L 3.6-5.0 Serum or plasma chloride measurement (moles/volume) 100 mmol/L 98-107 Carbon dioxide 23 mmol/L 21-32 Serum or plasma anion gap determination (moles/volume) 15 mmol/L 5-14 Serum or plasma urea nitrogen measurement (mass/volume ) 45 mg/dL 7-18 Serum or plasma creatinine measurement (mass/volume) 0.86 mg/dL 0.60-1.30 Serum or plasma urea nitrogen/creatinine mass ratio 52 NRG Serum or plasma creatinine measurement w ith calculation of estimated glomerular filtration rate > NRG Serum or plasma glucose measurement (mass/volume) 98 mg/dL 70-105 Serum or plasma calcium measurement (mass/volume) 9.6 mg/dL 8.5-10.1 Serum or plasma total bilirubin measurement (mass/volu me) 0.3 mg/dL 0.1-1.0 Serum or plasma alkaline phosphatase kathy surement (enzymatic activity/volume) 82 U/L 40-136 Serum or plasma aspartate aminotransfera se measurement (enzymatic activity/volume) 52 U/L 5-34 Serum or plasma alanine aminotransferase measurement (enzymatic activity/volume) 40 U/L 0-55 Serum or plasma protein measurement (mass/volume) 7.9 g/dL 6.4-8.2 Serum or plasma albumin measurement (mass/volume) 4.4 g/dL 3.2-4.5 CALCIUM CORRECTED 9.3 mg/dL 8.5-10.1 Blood lactic acid measurement (moles/vol ume) - 06/11/18 10:00 Blood lactic acid measurement (moles/volume) 1.08 mmol/L 0.50-2.00 PROCALCITONIN (PCT) - 06/11/18 10:00 PROCALCITONIN (PCT) 0.04 ng/mL <0.10 Bacterial blood culture - 06/11/18 10:00 Bacterial blood culture NG NRG Bacterial blood culture - 06/11/18 10:28 Bacterial blood culture NG NRG Complete urinalysis with reflex to cultu re - 06/11/18 11:11 Urine color determination YELLOW NRG Urine clarity determination CLEAR NR G Urine pH measurement by test strip 6.0 5-9 Specific gravity of urine by test strip < 1.016-1.022 Urine protein assay by test strip, semi-quantitative NEGATIVE NEGATIVE Urine glucose detection by automated test strip NE GATIVE NEGATIVE Erythrocytes detection in urine sediment by light micr oscopy NEGATIVE NEGATIVE Urine ketones detection by automated test strip NE GATIVE NEGATIVE Urine nitrite detection by test strip NEGATIVE NEGATIVE Urine total bilirubin detection by test strip NEGA TIVE NEGATIVE Urine urobilinogen measurement by automated test strip (mass/volume) 0.2 mg/dL NORMAL Urine leukocyte esterase detection by dipstick TRA CE NEGATIVE Automated urine sediment erythrocyte cou nt by microscopy (number/high power field) NONE NRG Automated urine sediment leukocyte count by microscopy (number/high power field) RARE NRG Bacteria detection in urine sediment by light microsco py NONE NRG Squamous epithelial cells detection in u rine sediment by light microscopy RARE NRG Crystals detection in urine sediment by light microsco py NONE NRG Casts detection in urine sediment by light microscopy NONE NRG Mucus detection in urine sediment by light microscopy NEGATIVE NRG Complete urinalysis with reflex to culture NO NRG Capillary blood glucose measurement by g lucometer (mass/volume) - 06/11/18 16:48 Capillary blood glucose measurement by glucometer (mas s/volume) 131 mg/dL 70-110 Capillary blood glucose measurement by g lucometer (mass/volume) - 06/11/18 21:56 Capillary blood glucose measurement by glucometer (mas s/volume) 109 mg/dL 70-110 Capillary blood glucose measurement by g lucometer (mass/volume) - 06/12/18 05:05 Capillary blood glucose measurement by glucometer (mas s/volume) 111 mg/dL 70-110 Whole blood basic metabolic panel - 07/26 05:35 Serum or plasma sodium measurement (moles/volume) 139 mmol/L 135-145 Serum or plasma potassium measurement (moles/volume) 4.5 mmol/L 3.6-5.0 Serum or plasma chloride measurement (moles/volume) 107 mmol/L 98-107 Carbon dioxide 21 mmol/L 21-32 Serum or plasma anion gap determination (moles/volume) 11 mmol/L 5-14 Serum or plasma urea nitrogen measurement (mass/volume ) 32 mg/dL 7-18 Serum or plasma creatinine measurement (mass/volume) 0.81 mg/dL 0.60-1.30 Serum or plasma urea nitrogen/creatinine mass ratio 40 NRG Serum or plasma creatinine measurement w ith calculation of estimated glomerular filtration rate > NRG Serum or plasma glucose measurement (mass/volume) 103 mg/dL 70-105 Serum or plasma calcium measurement (mass/volume) 9.7 mg/dL 8.5-10.1 Capillary blood glucose measurement by g lucometer (mass/volume) - 06/12/18 11:28 Capillary blood glucose measurement by glucometer (mas s/volume) 176 mg/dL 70-110 Capillary blood glucose measurement by g lucometer (mass/volume) - 06/12/18 15:50 Capillary blood glucose measurement by glucometer (mas s/volume) 135 mg/dL 70-110 Capillary blood glucose measurement by g lucometer (mass/volume) - 06/12/18 20:14 Capillary blood glucose measurement by glucometer (mas s/volume) 112 mg/dL 70-110 Capillary blood glucose measurement by g lucometer (mass/volume) - 06/13/18 05:17 Capillary blood glucose measurement by glucometer (mas s/volume) 101 mg/dL 70-110 Complete blood count (CBC) with automate d white blood cell (WBC) differential - 06/13/18 05:35 Blood leukocytes automated count (number/volume) 4.8 10*3/uL 4.3-11.0 Blood erythrocytes automated count (number/volume) 3.70 10*6/uL 4.35-5.85 Venous blood hemoglobin measurement (mass/volume) 12.2 g/dL 11.5-16.0 Blood hematocrit (volume fraction) 37 % 35-52 Automated erythrocyte mean corpuscular volume 100 [foz_us] 80-99 Automated erythrocyte mean corpuscular h emoglobin (mass per erythrocyte) 33 pg 25-34 Automated erythrocyte mean corpuscular h emoglobin concentration measurement (mass/volume) 33 g/dL 32-36 Automated erythrocyte distribution width ratio 13. 5 % 10.0- 14.5 Automated blood platelet count [...] 10*3 1.0-4.0 Blood monocytes automated count (number/volume) 0. 6 10*3 0.0-1.0 Automated eosinophil count 0.2 10*3/uL 0 .0-0.3 Automated blood basophil count (count/volume) 0.0 10*3/uL 0.0-0.1 Comprehensive metabolic panel - 06/13/18 05:35 Serum or plasma sodium measurement (moles/volume) 139 mmol/L 135-145 Serum or plasma potassium measurement (moles/volume) 4.6 mmol/L 3.6-5.0 Serum or plasma chloride measurement (moles/volume) 110 mmol/L 98-107 Carbon dioxide 19 mmol/L 21-32 Serum or plasma anion gap determination (moles/volume) 10 mmol/L 5-14 Serum or plasma urea nitrogen measurement (mass/volume ) 21 mg/dL 7-18 Serum or plasma creatinine measurement (mass/volume) 0.74 mg/dL 0.60-1.30 Serum or plasma urea nitrogen/creatinine mass ratio 28 NRG Serum or plasma creatinine measurement w ith calculation of estimated glomerular filtration rate > NRG Serum or plasma glucose measurement (mass/volume) 107 mg/dL 70-105 Serum or plasma calcium measurement (mass/volume) 8.9 mg/dL 8.5-10.1 Serum or plasma total bilirubin measurement (mass/volu me) 0.3 mg/dL 0.1-1.0 Serum or plasma alkaline phosphatase kathy surement (enzymatic activity/volume) 62 U/L 40-136 Serum or plasma aspartate aminotransfera se measurement (enzymatic activity/volume) 54 U/L 5-34 Serum or plasma alanine aminotransferase measurement (enzymatic activity/volume) 49 U/L 0-55 Serum or plasma protein measurement (mass/volume) 6.4 g/dL 6.4-8.2 Serum or plasma albumin measurement (mass/volume) 3.8 g/dL 3.2-4.5 CALCIUM CORRECTED 9.1 mg/dL 8.5-10.1 Capillary blood glucose measurement by g lucometer (mass/volume) - 06/13/18 11:07 Capillary blood glucose measurement by glucometer (mas s/volume) 100 mg/dL 70-110 Capillary blood glucose measurement by g lucometer (mass/volume) - 06/13/18 15:45 Capillary blood glucose measurement by glucometer (mas s/volume) 125 mg/dL 70-110 Methicillin resistant Staphylococcus aur eus (MRSA) screening culture - 06/13/18 16:50 MRSA SCREEN RESULT MRSA ISOLATED NRG Capillary blood glucose measurement by g lucometer (mass/volume) - 06/13/18 19:50 Capillary blood glucose measurement by glucometer (mas s/volume) 147 mg/dL 70-110 Complete blood count (CBC) with automate d white blood cell (WBC) differential - 06/14/18 05:40 Blood leukocytes automated count (number/volume) 4.8 10*3/uL 4.3-11.0 Blood erythrocytes automated count (number/volume) 3.84 10*6/uL 4.35-5.85 Venous blood hemoglobin measurement (mass/volume) 12.6 g/dL 11.5-16.0 Blood hematocrit (volume fraction) 38 % 35-52 Automated erythrocyte mean corpuscular volume 99 [ foz_us] 80-99 Automated erythrocyte mean corpuscular h emoglobin (mass per erythrocyte) 33 pg 25-34 Automated erythrocyte mean corpuscular h emoglobin concentration measurement (mass/volume) 33 g/dL 32-36 Automated erythrocyte distribution width ratio 13. 1 % 10.0- 14.5 Automated blood platelet count [...] 10*3 1.0-4.0 Blood monocytes automated count (number/volume) 0. 6 10*3 0.0-1.0 Automated eosinophil count 0.2 10*3/uL 0 .0-0.3 Automated blood basophil count (count/volume) 0.0 10*3/uL 0.0-0.1 Comprehensive metabolic panel - 06/14/18 05:40 Serum or plasma sodium measurement (moles/volume) 138 mmol/L 135-145 Serum or plasma potassium measurement (moles/volume) 4.7 mmol/L 3.6-5.0 Serum or plasma chloride measurement (moles/volume) 108 mmol/L 98-107 Carbon dioxide 20 mmol/L 21-32 Serum or plasma anion gap determination (moles/volume) 10 mmol/L 5-14 Serum or plasma urea nitrogen measurement (mass/volume ) 16 mg/dL 7-18 Serum or plasma creatinine measurement (mass/volume) 0.71 mg/dL 0.60-1.30 Serum or plasma urea nitrogen/creatinine mass ratio 23 NRG Serum or plasma creatinine measurement w ith calculation of estimated glomerular filtration rate > NRG Serum or plasma glucose measurement (mass/volume) 106 mg/dL 70-105 Serum or plasma calcium measurement (mass/volume) 9.5 mg/dL 8.5-10.1 Serum or plasma total bilirubin measurement (mass/volu me) 0.3 mg/dL 0.1-1.0 Serum or plasma alkaline phosphatase kathy surement (enzymatic activity/volume) 57 U/L 40-136 Serum or plasma aspartate aminotransfera se measurement (enzymatic activity/volume) 50 U/L 5-34 Serum or plasma alanine aminotransferase measurement (enzymatic activity/volume) 50 U/L 0-55 Serum or plasma protein measurement (mass/volume) 6.4 g/dL 6.4-8.2 Serum or plasma albumin measurement (mass/volume) 3.8 g/dL 3.2-4.5 CALCIUM CORRECTED 9.7 mg/dL 8.5-10.1 Capillary blood glucose measurement by g lucometer (mass/volume) - 06/14/18 06:04 Capillary blood glucose measurement by glucometer (mas s/volume) 113 mg/dL 70-110 Capillary blood glucose measurement by g lucometer (mass/volume) - 06/14/18 12:16 Capillary blood glucose measurement by glucometer (mas s/volume) 105 mg/dL 70-110 Capillary blood glucose measurement by g lucometer (mass/volume) - 06/14/18 17:35 Capillary blood glucose measurement by glucometer (mas s/volume) 123 mg/dL 70-110 Capillary blood glucose measurement by g lucometer (mass/volume) - 06/14/18 21:13 Capillary blood glucose measurement by glucometer (mas s/volume) 124 mg/dL 70-110 Capillary blood glucose measurement by g lucometer (mass/volume) - 06/15/18 06:10 Capillary blood glucose measurement by glucometer (mas s/volume) 108 mg/dL 70-110 Complete blood count (CBC) with automate d white blood cell (WBC) differential - 06/15/18 10:15 Blood leukocytes automated count (number/volume) 9.9 10*3/uL 4.3-11.0 Blood erythrocytes automated count (number/volume) 4.21 10*6/uL 4.35-5.85 Venous blood hemoglobin measurement (mass/volume) 13.8 g/dL 11.5-16.0 Blood hematocrit (volume fraction) 41 % 35-52 Automated erythrocyte mean corpuscular volume 98 [ foz_us] 80-99 Automated erythrocyte mean corpuscular h emoglobin (mass per erythrocyte) 33 pg 25-34 Automated erythrocyte mean corpuscular h emoglobin concentration measurement (mass/volume) 34 g/dL 32-36 Automated erythrocyte distribution width ratio 13. 3 % 10.0- 14.5 Automated blood platelet count [...] 10*3 1.0-4.0 Blood monocytes automated count (number/volume) 0. 7 10*3 0.0-1.0 Automated eosinophil count 0.0 10*3/uL 0 .0-0.3 Automated blood basophil count (count/volume) 0.0 10*3/uL 0.0-0.1 Comprehensive metabolic panel - 06/15/18 10:15 Serum or plasma sodium measurement (moles/volume) 136 mmol/L 135-145 Serum or plasma potassium measurement (moles/volume) 5.0 mmol/L 3.6-5.0 Serum or plasma chloride measurement (moles/volume) 107 mmol/L 98-107 Carbon dioxide 21 mmol/L 21-32 Serum or plasma anion gap determination (moles/volume) 8 mmol/L 5-14 Serum or plasma urea nitrogen measurement (mass/volume ) 17 mg/dL 7-18 Serum or plasma creatinine measurement (mass/volume) 0.78 mg/dL 0.60-1.30 Serum or plasma urea nitrogen/creatinine mass ratio 22 NRG Serum or plasma creatinine measurement w ith calculation of estimated glomerular filtration rate > NRG Serum or plasma glucose measurement (mass/volume) 157 mg/dL 70-105 Serum or plasma calcium measurement (mass/volume) 9.4 mg/dL 8.5-10.1 Serum or plasma total bilirubin measurement (mass/volu me) 0.3 mg/dL 0.1-1.0 Serum or plasma alkaline phosphatase kathy surement (enzymatic activity/volume) 63 U/L 40-136 Serum or plasma aspartate aminotransfera se measurement (enzymatic activity/volume) 33 U/L 5-34 Serum or plasma alanine aminotransferase measurement (enzymatic activity/volume) 48 U/L 0-55 Serum or plasma protein measurement (mass/volume) 6.7 g/dL 6.4-8.2 Serum or plasma albumin measurement (mass/volume) 3.9 g/dL 3.2-4.5 CALCIUM CORRECTED 9.5 mg/dL 8.5-10.1 Blood manual differential performed dete ction - 06/15/18 10:15 Blood monocytes/100 leukocytes 6 % NRG Manual blood segmented neutrophils/100 leukocytes 82 % NRG Blood band neutrophils/100 leukocytes 5 % NRG Manual blood lymphocytes/100 leukocytes 7 % NRG Manual eosinophils/100 leukocytes in nose 0 % NRG Manual blood basophils/100 leukocytes 0 % NRG Blood erythrocyte morphology finding identification NORMAL NRG Capillary blood glucose measurement by g lucometer (mass/volume) - 06/15/18 11:36 Capillary blood glucose measurement by glucometer (mas s/volume) 122 mg/dL 70-110 Capillary blood glucose measurement by g lucometer (mass/volume) - 06/15/18 16:23 Capillary blood glucose measurement by glucometer (mas s/volume) 99 mg/dL 70-110 Capillary blood glucose measurement by g lucometer (mass/volume) - 06/15/18 21:44 Capillary blood glucose measurement by glucometer (mas s/volume) 112 mg/dL 70-110 Capillary blood glucose measurement by g lucometer (mass/volume) - 06/16/18 04:56 Capillary blood glucose measurement by glucometer (mas s/volume) 77 mg/dL 70-110 Capillary blood glucose measurement by g lucometer (mass/volume) - 06/16/18 11:15 Capillary blood glucose measurement by glucometer (mas s/volume) 90 mg/dL 70-110 Complete blood count (CBC) with automate d white blood cell (WBC) differential - 06/22/18 11:55 Blood leukocytes automated count (number/volume) 7.8 10*3/uL 4.3-11.0 Blood erythrocytes automated count (number/volume) 3.40 10*6/uL 4.35-5.85 Venous blood hemoglobin measurement (mass/volume) 10.9 g/dL 11.5-16.0 Blood hematocrit (volume fraction) 33 % 35-52 Automated erythrocyte mean corpuscular volume 98 [ foz_us] 80-99 Automated erythrocyte mean corpuscular h emoglobin (mass per erythrocyte) 32 pg 25-34 Automated erythrocyte mean corpuscular h emoglobin concentration measurement (mass/volume) 33 g/dL 32-36 Automated erythrocyte distribution width ratio 13. 0 % 10.0- 14.5 Automated blood platelet count [...] 10*3 1.0-4.0 Blood monocytes automated count (number/volume) 0. 8 10*3 0.0-1.0 Automated eosinophil count 0.2 10*3/uL 0 .0-0.3 Automated blood basophil count (count/volume) 0.1 10*3/uL 0.0-0.1 PT panel in platelet poor plasma by coag ulation assay - 06/22/18 11:55 Prothrombin time (PT) in platelet poor plasma by coagu lation assay 18.2 s 12.2-14.7 INR in platelet poor plasma or blood by coagulation as say 1.5 0.8-1.4 Whole blood basic metabolic panel - 06/07 07/26 11:55 Serum or plasma sodium measurement (moles/volume) 134 mmol/L 135-145 Serum or plasma potassium measurement (moles/volume) 5.4 mmol/L 3.6-5.0 Serum or plasma chloride measurement (moles/volume) 100 mmol/L 98-107 Carbon dioxide 21 mmol/L 21-32 Serum or plasma anion gap determination (moles/volume) 13 mmol/L 5-14 Serum or plasma urea nitrogen measurement (mass/volume ) 35 mg/dL 7-18 Serum or plasma creatinine measurement (mass/volume) 0.94 mg/dL 0.60-1.30 Serum or plasma urea nitrogen/creatinine mass ratio 37 NRG Serum or plasma creatinine measurement w ith calculation of estimated glomerular filtration rate 58 [...] 33.1 g/dL 32.0-36.0 MCV 103.7 fL 80.0-97.0 [place]% 9.2 % 0.0-12.0 MPV 9.0 fL 7.4-10.0 [place]% 60.8 % 37.0-80.0 Plt 387 K/uL 150-400 RBC 3.00 M/uL 3.60-5.00 RDW 13.3 % 11.6-14.8 WBC 6.19 K/uL 5.00-10.00 [place] 3.76 K/uL 2.00-6.90 [place] 0.6 K/uL 0.0-0.9 Baso 0.0 K/uL 0.0-0.2 Prealbumin - 07/26/18 07:14 Prealbumin 18.00 mg/dL 16.00-38.00 Gram stain microscopy - 08/04/18 09:15 Gram stain microscopy MODERATE GRAM POSITIVE COCCI NRG Bacteria identification in wound by cult ure - 08/04/18 09:15 Bacteria identification in wound by culture [id number] NRG FREE TEXT EXTERNAL SUSCEPTIBILITY REPORTED 08/07 11: 30 NRG QUANTITY OF GROWTH Many NRG FREE TEXT ENTRY 2 MRSA; RESISTANT ORGANISM; NRG FREE TEXT ENTRY 3 CONTACT PRECAUTIONS N RG Dirithromycin susceptibility test by dis k diffusion - 08/04/18 09:15 Oxacillin susceptibility test by minimum inhibitory co ncentration > NRG Clindamycin susceptibility test by minimum inhibitory concentration > NRG Erythromycin susceptibility test by minimum inhibitory concentration > NRG Trimethoprim/sulfamethoxazole susceptibi lity test by minimum inhibitoryconcentration <= NRG Vancomycin susceptibility test by minimum inhibitory c oncentration 1 NRG Levofloxacin susceptibility test by minimum inhibitory concentration > NRG Rifampin susceptibility test by minimum inhibitory con centration <= NRG Cefazolin susceptibility test by minimum inhibitory co ncentration > NRG Linezolid susceptibility test by minimum inhibitory co ncentration 2 NRG Penicillin G susceptibility test by minimum inhibitory concentration > NRG Moxifloxacin susceptibility test by minimum inhibitory concentration > NRG Minocycline susc TREVOR <= NRG Complete blood count (CBC) with automate d white blood cell (WBC) differential - 08/22/18 16:08 Blood leukocytes automated count (number/volume) 10.9 10*3/uL 4.3-11.0 Blood erythrocytes automated count (number/volume) 3.99 10*6/uL 4.35-5.85 Venous blood hemoglobin measurement (mass/volume) 12.5 g/dL 11.5-16.0 Blood hematocrit (volume fraction) 38 % 35-52 Automated erythrocyte mean corpuscular volume 95 [ foz_us] 80-99 Automated erythrocyte mean corpuscular h emoglobin (mass per erythrocyte) 31 pg 25-34 Automated erythrocyte mean corpuscular h emoglobin concentration measurement (mass/volume) 33 g/dL 32-36 Automated erythrocyte distribution width ratio 13. 3 % 10.0- 14.5 Automated blood platelet count [...] 10*3 1.0-4.0 Blood monocytes automated count (number/volume) 0. 9 10*3 0.0-1.0 Automated eosinophil count 0.0 10*3/uL 0 .0-0.3 Automated blood basophil count (count/volume) 0.0 10*3/uL 0.0-0.1 Comprehensive metabolic panel - 08/22/18 16:08 Serum or plasma sodium measurement (moles/volume) 135 mmol/L 135-145 Serum or plasma potassium measurement (moles/volume) 5.0 mmol/L 3.6-5.0 Serum or plasma chloride measurement (moles/volume) 91 mmol/L 98-107 Carbon dioxide 26 mmol/L 21-32 Serum or plasma anion gap determination (moles/volume) 18 mmol/L 5-14 Serum or plasma urea nitrogen measurement (mass/volume ) 32 mg/dL 7-18 Serum or plasma creatinine measurement (mass/volume) 0.91 mg/dL 0.60-1.30 Serum or plasma urea nitrogen/creatinine mass ratio 35 NRG Serum or plasma creatinine measurement w ith calculation of estimated glomerular filtration rate 60 NRG Serum or plasma glucose measurement (mass/volume) 209 mg/dL 70-105 Serum or plasma calcium measurement (mass/volume) 10.0 mg/dL 8.5-10.1 Serum or plasma total bilirubin measurement (mass/volu me) 0.3 mg/dL 0.1-1.0 Serum or plasma alkaline phosphatase kathy surement (enzymatic activity/volume) 93 U/L 40-136 Serum or plasma aspartate aminotransfera se measurement (enzymatic activity/volume) 25 U/L 5-34 Serum or plasma alanine aminotransferase measurement (enzymatic activity/volume) 21 U/L 0-55 Serum or plasma protein measurement (mass/volume) 7.9 g/dL 6.4-8.2 Serum or plasma albumin measurement (mass/volume) 4.5 g/dL 3.2-4.5 CALCIUM CORRECTED 9.6 mg/dL 8.5-10.1 Complete blood count (CBC) with automate d white blood cell (WBC) differential - 08/23/18 05:36 Blood leukocytes automated count (number/volume) 7.3 10*3/uL 4.3-11.0 Blood erythrocytes automated count (number/volume) 3.43 10*6/uL 4.35-5.85 Venous blood hemoglobin measurement (mass/volume) 10.7 g/dL 11.5-16.0 Blood hematocrit (volume fraction) 34 % 35-52 Automated erythrocyte mean corpuscular volume 98 [ foz_us] 80-99 Automated erythrocyte mean corpuscular h emoglobin (mass per erythrocyte) 31 pg 25-34 Automated erythrocyte mean corpuscular h emoglobin concentration measurement (mass/volume) 32 g/dL 32-36 Automated erythrocyte distribution width ratio 13. 7 % 10.0- 14.5 Automated blood platelet count [...] 10*3 1.0-4.0 Blood monocytes automated count (number/volume) 0. 8 10*3 0.0-1.0 Automated eosinophil count 0.1 10*3/uL 0 .0-0.3 Automated blood basophil count (count/volume) 0.0 10*3/uL 0.0-0.1 Comprehensive metabolic panel - 08/23/18 05:36 Serum or plasma sodium measurement (moles/volume) 137 mmol/L 135-145 Serum or plasma potassium measurement (moles/volume) 5.2 mmol/L 3.6-5.0 Serum or plasma chloride measurement (moles/volume) 105 mmol/L 98-107 Carbon dioxide 22 mmol/L 21-32 Serum or plasma anion gap determination (moles/volume) 10 mmol/L 5-14 Serum or plasma urea nitrogen measurement (mass/volume ) 30 mg/dL 7-18 Serum or plasma creatinine measurement (mass/volume) 0.84 mg/dL 0.60-1.30 Serum or plasma urea nitrogen/creatinine mass ratio 36 NRG Serum or plasma creatinine measurement w ith calculation of estimated glomerular filtration rate > NRG Serum or plasma glucose measurement (mass/volume) 103 mg/dL 70-105 Serum or plasma calcium measurement (mass/volume) 9.1 mg/dL 8.5-10.1 Serum or plasma total bilirubin measurement (mass/volu me) 0.3 mg/dL 0.1-1.0 Serum or plasma alkaline phosphatase kathy surement (enzymatic activity/volume) 70 U/L 40-136 Serum or plasma aspartate aminotransfera se measurement (enzymatic activity/volume) 22 U/L 5-34 Serum or plasma alanine aminotransferase measurement (enzymatic activity/volume) 17 U/L 0-55 Serum or plasma protein measurement (mass/volume) 6.1 g/dL 6.4-8.2 Serum or plasma albumin measurement (mass/volume) 3.5 g/dL 3.2-4.5 CALCIUM CORRECTED 9.5 mg/dL 8.5-10.1 Complete blood count (CBC) with automate d white blood cell (WBC) differential - 08/24/18 06:15 Blood leukocytes automated count (number/volume) 7.8 10*3/uL 4.3-11.0 Blood erythrocytes automated count (number/volume) 3.44 10*6/uL 4.35-5.85 Venous blood hemoglobin measurement (mass/volume) 10.7 g/dL 11.5-16.0 Blood hematocrit (volume fraction) 34 % 35-52 Automated erythrocyte mean corpuscular volume 98 [ foz_us] 80-99 Automated erythrocyte mean corpuscular h emoglobin (mass per erythrocyte) 31 pg 25-34 Automated erythrocyte mean corpuscular h emoglobin concentration measurement (mass/volume) 32 g/dL 32-36 Automated erythrocyte distribution width ratio 13. 8 % 10.0- 14.5 Automated blood platelet count [...] 10*3 1.0-4.0 Blood monocytes automated count (number/volume) 0. 8 10*3 0.0-1.0 Automated eosinophil count 0.0 10*3/uL 0 .0-0.3 Automated blood basophil count (count/volume) 0.0 10*3/uL 0.0-0.1 Comprehensive metabolic panel - 08/24/18 06:20 Serum or plasma sodium measurement (moles/volume) 140 mmol/L 135-145 Serum or plasma potassium measurement (moles/volume) 4.1 mmol/L 3.6-5.0 Serum or plasma chloride measurement (moles/volume) 106 mmol/L 98-107 Carbon dioxide 21 mmol/L 21-32 Serum or plasma anion gap determination (moles/volume) 13 mmol/L 5-14 Serum or plasma urea nitrogen measurement (mass/volume ) 19 mg/dL 7-18 Serum or plasma creatinine measurement (mass/volume) 0.72 mg/dL 0.60-1.30 Serum or plasma urea nitrogen/creatinine mass ratio 26 NRG Serum or plasma creatinine measurement w ith calculation of estimated glomerular filtration rate > NRG Serum or plasma glucose measurement (mass/volume) 112 mg/dL 70-105 Serum or plasma calcium measurement (mass/volume) 9.4 mg/dL 8.5-10.1 Serum or plasma total bilirubin measurement (mass/volu me) 0.2 mg/dL 0.1-1.0 Serum or plasma alkaline phosphatase kathy surement (enzymatic activity/volume) 75 U/L 40-136 Serum or plasma aspartate aminotransfera se measurement (enzymatic activity/volume) 25 U/L 5-34 Serum or plasma alanine aminotransferase measurement (enzymatic activity/volume) 18 U/L 0-55 Serum or plasma protein measurement (mass/volume) 7.0 g/dL 6.4-8.2 Serum or plasma albumin measurement (mass/volume) 3.9 g/dL 3.2-4.5 CALCIUM CORRECTED 9.5 mg/dL 8.5-10.1 Complete blood count (CBC) with automate d white blood cell (WBC) differential - 08/25/18 05:07 Blood leukocytes automated count (number/volume) 6.6 10*3/uL 4.3-11.0 Blood erythrocytes automated count (number/volume) 3.43 10*6/uL 4.35-5.85 Venous blood hemoglobin measurement (mass/volume) 10.6 g/dL 11.5-16.0 Blood hematocrit (volume fraction) 34 % 35-52 Automated erythrocyte mean corpuscular volume 99 [ foz_us] 80-99 Automated erythrocyte mean corpuscular h emoglobin (mass per erythrocyte) 31 pg 25-34 Automated erythrocyte mean corpuscular h emoglobin concentration measurement (mass/volume) 31 g/dL 32-36 Automated erythrocyte distribution width ratio 13. 6 % 10.0- 14.5 Automated blood platelet count [...] 10*3 1.0-4.0 Blood monocytes automated count (number/volume) 0. 8 10*3 0.0-1.0 Automated eosinophil count 0.2 10*3/uL 0 .0-0.3 Automated blood basophil count (count/volume) 0.0 10*3/uL 0.0-0.1 Comprehensive metabolic panel - 08/25/18 05:07 Serum or plasma sodium measurement (moles/volume) 136 mmol/L 135-145 Serum or plasma potassium measurement (moles/volume) 3.6 mmol/L 3.6-5.0 Serum or plasma chloride measurement (moles/volume) 104 mmol/L 98-107 Carbon dioxide 21 mmol/L 21-32 Serum or plasma anion gap determination (moles/volume) 11 mmol/L 5-14 Serum or plasma urea nitrogen measurement (mass/volume ) 21 mg/dL 7-18 Serum or plasma creatinine measurement (mass/volume) 0.68 mg/dL 0.60-1.30 Serum or plasma urea nitrogen/creatinine mass ratio 31 NRG Serum or plasma creatinine measurement w ith calculation of estimated glomerular filtration rate > NRG Serum or plasma glucose measurement (mass/volume) 98 mg/dL 70-105 Serum or plasma calcium measurement (mass/volume) 8.8 mg/dL 8.5-10.1 Serum or plasma total bilirubin measurement (mass/volu me) 0.3 mg/dL 0.1-1.0 Serum or plasma alkaline phosphatase kathy surement (enzymatic activity/volume) 65 U/L 40-136 Serum or plasma aspartate aminotransfera se measurement (enzymatic activity/volume) 30 U/L 5-34 Serum or plasma alanine aminotransferase measurement (enzymatic activity/volume) 24 U/L 0-55 Serum or plasma protein measurement (mass/volume) 6.4 g/dL 6.4-8.2 Serum or plasma albumin measurement (mass/volume) 3.5 g/dL 3.2-4.5 CALCIUM CORRECTED 9.2 mg/dL 8.5-10.1 Capillary blood glucose measurement by g lucometer (mass/volume) - 09/04/18 01:21 Capillary blood glucose measurement by glucometer (mas s/volume) 79 mg/dL 70-110 Complete urinalysis with reflex to cultu re - 09/04/18 01:56 Urine color determination YELLOW NRG Urine clarity determination CLEAR NR G Urine pH measurement by test strip 6.5 5-9 Specific gravity of urine by test strip < 1.016-1.022 Urine protein assay by test strip, semi-quantitative NEGATIVE NEGATIVE Urine glucose detection by automated test strip NE GATIVE NEGATIVE Erythrocytes detection in urine sediment by light micr oscopy TRACE NEGATIVE Urine ketones detection by automated test strip NE GATIVE NEGATIVE Urine nitrite detection by test strip NEGATIVE NEGATIVE Urine total bilirubin detection by test strip NEGA TIVE NEGATIVE Urine urobilinogen measurement by automated test strip (mass/volume) 0.2 mg/dL NORMAL Urine leukocyte esterase detection by dipstick 3+ NEGATIVE Automated urine sediment erythrocyte cou nt by microscopy (number/high power field) [HPF] NRG Automated urine sediment leukocyte count by microscopy (number/high power field) > [HPF] NRG Bacteria detection in urine sediment by light microsco py MODERATE NRG Crystals detection in urine sediment by light microsco py NONE NRG Casts detection in urine sediment by light microscopy NONE NRG Mucus detection in urine sediment by light microscopy NEGATIVE NRG Complete urinalysis with reflex to culture YES NRG Bacterial urine culture - 09/04/18 01:56 Bacterial urine culture [id number] NRG COLONY COUNT >100,000/ML NRG FTX;REPORTABLE SUSCEPTIBILITY REPORTED 09/06 10:30 NRG Dirithromycin susceptibility test by dis k diffusion - 09/04/18 01:56 Gentamicin susceptibility test by minimum inhibitory c oncentration <= NRG Trimethoprim/sulfamethoxazole susceptibi lity test by minimum inhibitoryconcentration <= NRG Levofloxacin susceptibility test by minimum inhibitory concentration <= NRG Ampicillin susceptibility test by minimum inhibitory c oncentration 8 NRG Cefazolin susceptibility test by minimum inhibitory co ncentration 2 NRG Ceftriaxone susceptibility test by minimum inhibitory concentration <= NRG Ciprofloxacin susceptibility test by minimum inhibitor y concentration <= NRG Meropenem susceptibility test by minimum inhibitory co ncentration <= NRG Nitrofurantoin susceptibility test by mi nimum inhibitory concentration <= NRG Amoxicillin and clavulanate potassium susc TREVOR = NRG Blood CBC with ordered manual differenti al panel - 09/04/18 02:00 Blood leukocytes automated count (number/volume) 8.7 10*3/uL 4.3-11.0 Blood erythrocytes automated count (number/volume) 3.37 10*6/uL 4.35-5.85 Venous blood hemoglobin measurement (mass/volume) 10.5 g/dL 11.5-16.0 Blood hematocrit (volume fraction) 32 % 35-52 Automated erythrocyte mean corpuscular volume 96 [ foz_us] 80-99 Automated erythrocyte mean corpuscular h emoglobin (mass per erythrocyte) 31 pg 25-34 Automated erythrocyte mean corpuscular h emoglobin concentration measurement (mass/volume) 33 g/dL 32-36 Automated erythrocyte distribution width ratio 13. 3 % 10.0- 14.5 Automated blood platelet count (count/volume) 223 10*3/uL 130-400 Automated blood platelet mean volume measurement 8.9 [foz_us] 7.4-10.4 Automated blood neutrophils/100 leukocytes 74 % 42-75 Automated blood lymphocytes/100 leukocytes 10 % 12-44 Blood monocytes/100 leukocytes 8 % NRG Automated blood eosinophils/100 leukocytes 3 % 0-10 Automated blood basophils/100 leukocytes 1 % 0-10 Blood neutrophils automated count (number/volume) 6.5 10*3 1.8-7.8 Blood lymphocytes automated count (number/volume) 0.8 10*3 1.0-4.0 Blood monocytes automated count (number/volume) 0. 9 10*3 0.0-1.0 Automated eosinophil count 0.2 10*3/uL 0 .0-0.3 Automated blood basophil count (count/volume) 0.1 10*3/uL 0.0-0.1 Manual blood segmented neutrophils/100 leukocytes 68 % NRG Blood band neutrophils/100 leukocytes 56 % NRG Manual blood lymphocytes/100 leukocytes 17 % NRG Manual eosinophils/100 leukocytes in nose 2 % NRG Manual blood basophils/100 leukocytes 0 % NRG Blood erythrocyte morphology finding identification NORMAL NRG Whole blood basic metabolic panel - 08/08 10/26 02:00 Serum or plasma sodium measurement (moles/volume) 126 mmol/L 135-145 Serum or plasma potassium measurement (moles/volume) 5.4 mmol/L 3.6-5.0 Serum or plasma chloride measurement (moles/volume) 87 mmol/L 98-107 Carbon dioxide 22 mmol/L 21-32 Serum or plasma anion gap determination (moles/volume) 17 mmol/L 5-14 Serum or plasma urea nitrogen measurement (mass/volume ) 20 mg/dL 7-18 Serum or plasma creatinine measurement (mass/volume) 1.30 mg/dL 0.60-1.30 Serum or plasma urea nitrogen/creatinine mass ratio 15 NRG Serum or plasma creatinine measurement w ith calculation of estimated glomerular filtration rate 40 NRG Serum or plasma glucose measurement (mass/volume) 97 mg/dL 70-105 Serum or plasma calcium measurement (mass/volume) 8.9 mg/dL 8.5-10.1 Bacterial blood culture - 09/04/18 02:38 Bacterial blood culture NG NRG Bacterial blood culture - 09/04/18 02:49 Bacterial blood culture NG NRG Complete blood count (CBC) with automate d white blood cell (WBC) differential - 09/05/18 05:45 Blood leukocytes automated count (number/volume) 4.3 10*3/uL 4.3-11.0 Blood erythrocytes automated count (number/volume) 3.55 10*6/uL 4.35-5.85 Venous blood hemoglobin measurement (mass/volume) 10.9 g/dL 11.5-16.0 Blood hematocrit (volume fraction) 34 % 35-52 Automated erythrocyte mean corpuscular volume 97 [ foz_us] 80-99 Automated erythrocyte mean corpuscular h emoglobin (mass per erythrocyte) 31 pg 25-34 Automated erythrocyte mean corpuscular h emoglobin concentration measurement (mass/volume) 32 g/dL 32-36 Automated erythrocyte distribution width ratio 13. 6 % 10.0- 14.5 Automated blood platelet count (count/volume) 212 10*3/uL 130-400 Automated blood platelet mean volume measurement 9.4 [foz_us] 7.4-10.4 Automated blood neutrophils/100 leukocytes 63 % 42-75 Automated blood lymphocytes/100 leukocytes 17 % 12-44 Blood monocytes/100 leukocytes 13 % 0-12 Automated blood eosinophils/100 leukocytes 7 % 0-10 Automated blood basophils/100 leukocytes 1 % 0-10 Blood neutrophils automated count (number/volume) 2.7 10*3 1.8-7.8 Blood lymphocytes automated count (number/volume) 0.7 10*3 1.0-4.0 Blood monocytes automated count (number/volume) 0. 6 10*3 0.0-1.0 Automated eosinophil count 0.3 10*3/uL 0 .0-0.3 Automated blood basophil count (count/volume) 0.0 10*3/uL 0.0-0.1 Comprehensive metabolic panel - 09/05/18 05:45 Serum or plasma sodium measurement (moles/volume) 135 mmol/L 135-145 Serum or plasma potassium measurement (moles/volume) 5.1 mmol/L 3.6-5.0 Serum or plasma chloride measurement (moles/volume) 102 mmol/L 98-107 Carbon dioxide 21 mmol/L 21-32 Serum or plasma anion gap determination (moles/volume) 12 mmol/L 5-14 Serum or plasma urea nitrogen measurement (mass/volume ) 16 mg/dL 7-18 Serum or plasma creatinine measurement (mass/volume) 0.96 mg/dL 0.60-1.30 Serum or plasma urea nitrogen/creatinine mass ratio 17 NRG Serum or plasma creatinine measurement w ith calculation of estimated glomerular filtration rate 57 NRG Serum or plasma glucose measurement (mass/volume) 88 mg/dL 70-105 Serum or plasma calcium measurement (mass/volume) 9.3 mg/dL 8.5-10.1 Serum or plasma total bilirubin measurement (mass/volu me) 0.1 mg/dL 0.1-1.0 Serum or plasma alkaline phosphatase kathy surement (enzymatic activity/volume) 75 U/L 40-136 Serum or plasma aspartate aminotransfera se measurement (enzymatic activity/volume) 19 U/L 5-34 Serum or plasma alanine aminotransferase measurement (enzymatic activity/volume) 21 U/L 0-55 Serum or plasma protein measurement (mass/volume) 6.5 g/dL 6.4-8.2 Serum or plasma albumin measurement (mass/volume) 3.6 g/dL 3.2-4.5 CALCIUM CORRECTED 9.6 mg/dL 8.5-10.1 Complete blood count (CBC) with automate d white blood cell (WBC) differential - 09/06/18 06:00 Blood leukocytes automated count (number/volume) 5.6 10*3/uL 4.3-11.0 Blood erythrocytes automated count (number/volume) 3.73 10*6/uL 4.35-5.85 Venous blood hemoglobin measurement (mass/volume) 11.5 g/dL 11.5-16.0 Blood hematocrit (volume fraction) 36 % 35-52 Automated erythrocyte mean corpuscular volume 97 [ foz_us] 80-99 Automated erythrocyte mean corpuscular h emoglobin (mass per erythrocyte) 31 pg 25-34 Automated erythrocyte mean corpuscular h emoglobin concentration measurement (mass/volume) 32 g/dL 32-36 Automated erythrocyte distribution width ratio 13. 8 % 10.0- 14.5 Automated blood platelet count (count/volume) 214 10*3/uL 130-400 Automated blood platelet mean volume measurement 9.2 [foz_us] 7.4-10.4 Automated blood neutrophils/100 leukocytes 49 % 42-75 Automated blood lymphocytes/100 leukocytes 32 % 12-44 Blood monocytes/100 leukocytes 12 % 0-12 Automated blood eosinophils/100 leukocytes 6 % 0-10 Automated blood basophils/100 leukocytes 1 % 0-10 Blood neutrophils automated count (number/volume) 2.7 10*3 1.8-7.8 Blood lymphocytes automated count (number/volume) 1.8 10*3 1.0-4.0 Blood monocytes automated count (number/volume) 0. 7 10*3 0.0-1.0 Automated eosinophil count 0.4 10*3/uL 0 .0-0.3 Automated blood basophil count (count/volume) 0.1 10*3/uL 0.0-0.1 Comprehensive metabolic panel - 09/06/18 06:00 Serum or plasma sodium measurement (moles/volume) 136 mmol/L 135-145 Serum or plasma potassium measurement (moles/volume) 5.5 mmol/L 3.6-5.0 Serum or plasma chloride measurement (moles/volume) 103 mmol/L 98-107 Carbon dioxide 21 mmol/L 21-32 Serum or plasma anion gap determination (moles/volume) 12 mmol/L 5-14 Serum or plasma urea nitrogen measurement (mass/volume ) 17 mg/dL 7-18 Serum or plasma creatinine measurement (mass/volume) 0.81 mg/dL 0.60-1.30 Serum or plasma urea nitrogen/creatinine mass ratio 21 NRG Serum or plasma creatinine measurement w ith calculation of estimated glomerular filtration rate > NRG Serum or plasma glucose measurement (mass/volume) 82 mg/dL 70-105 Serum or plasma calcium measurement (mass/volume) 9.9 mg/dL 8.5-10.1 Serum or plasma total bilirubin measurement (mass/volu me) 0.1 mg/dL 0.1-1.0 Serum or plasma alkaline phosphatase kathy surement (enzymatic activity/volume) 78 U/L 40-136 Serum or plasma aspartate aminotransfera se measurement (enzymatic activity/volume) 16 U/L 5-34 Serum or plasma alanine aminotransferase measurement (enzymatic activity/volume) 19 U/L 0-55 Serum or plasma protein measurement (mass/volume) 7.1 g/dL 6.4-8.2 Serum or plasma albumin measurement (mass/volume) 3.8 g/dL 3.2-4.5 CALCIUM CORRECTED 10.1 mg/dL 8.5-10.1 BMP - 09/11/18 12:08 GLUCOSE 153 mg/dL 65-99 UREA NITROGEN (BUN) 19 mg/dL 7-25 CREATININE 0.69 mg/dL 0.60-0.93 eGFR NON-AFR. GERMAN 85 mL/min/1.73m2 > OR = 60 eGFR 99 mL/min/1.73m2 > OR = 60 BUN/CREATININE RATIO NOT APPLICABLE (calc) 6-22 SODIUM 135 mmol/L 135-146 POTASSIUM 5.2 mmol/L 3.5-5.3 CHLORIDE 102 mmol/L 98-110 CARBON DIOXIDE 24 mmol/L 20-32 CALCIUM 9.0 mg/dL 8.6-10.4 URIC ACID, SERUM - 10/23/18 14:36 URIC ACID 5.8 mg/dL 2.5-7.0 CBC - 10/23/18 14:36 WHITE BLOOD CELL COUNT 6.0 Thousand/uL 3 .8-10.8 RED BLOOD CELL COUNT 3.66 Million/uL 3.8 0-5.10 HEMOGLOBIN 11.3 g/dL 11.7-15.5 HEMATOCRIT 34.4 % 35.0-45.0 MCV 94.0 fL 80.0-100.0 MCH 30.9 pg 27.0-33.0 MCHC 32.8 g/dL 32.0-36.0 RDW 14.4 % 11.0-15.0 PLATELET COUNT 232 Thousand/uL 140-400 MPV 9.8 fL 7.5-12.5 ABSOLUTE NEUTROPHILS 3438 cells/uL 1500- 7800 ABSOLUTE LYMPHOCYTES 1536 cells/uL 850-3 900 ABSOLUTE MONOCYTES 828 cells/uL 200-950 ABSOLUTE EOSINOPHILS 138 cells/uL 15-500 ABSOLUTE BASOPHILS 60 cells/uL 0-200 NEUTROPHILS 57.3 % NRG LYMPHOCYTES 25.6 % NRG MONOCYTES 13.8 % NRG EOSINOPHILS 2.3 % NRG BASOPHILS 1.0 % NRG PDM - 09 PANEL (PROFILE 1) - 11/27/18 12 :32 Prescribed Drug 1 Hydrocodone NRG Creatinine 35.2 mg/dL > or = 20.0 pH 5.7 4.5-9.0 Oxidant NEGATIVE mcg/mL <200 Amphetamines NEGATIVE ng/mL <500 medMATCH Amphetamines CONSISTENT NRG Benzodiazepines POSITIVE ng/mL <100 Marijuana Metabolite NEGATIVE ng/mL <20 medMATCH Marijuana Metab CONSISTENT NRG Cocaine Metabolite NEGATIVE ng/mL <150 medMATCH Cocaine Metab CONSISTENT NRG Opiates POSITIVE ng/mL <100 Oxycodone NEGATIVE ng/mL <100 medMATCH Oxycodone CONSISTENT NRG COMMENT NRG Alphahydroxyalprazolam 47 ng/mL <25 medMATCH aOH alprazolam CONSISTENT NRG Alphahydroxymidazolam NEGATIVE ng/mL < 50 medMATCH aOH midazolam CONSISTENT NRG Alphahydroxytriazolam NEGATIVE ng/mL < 50 medMATCH aOH triazolam CONSISTENT NRG Aminoclonazepam NEGATIVE ng/mL <25 medMATCH Aminoclonazepam CONSISTENT NRG Hydroxyethylflurazepam NEGATIVE ng/mL <50 medMATCH OH,Et flurazepam CONSISTENT NR G Lorazepam NEGATIVE ng/mL <50 medMATCH Lorazepam CONSISTENT NRG Nordiazepam NEGATIVE ng/mL <50 medMATCH Nordiazepam CONSISTENT NRG Oxazepam NEGATIVE ng/mL <50 medMATCH Oxazepam CONSISTENT NRG Temazepam NEGATIVE ng/mL <50 medMATCH Temazepam CONSISTENT NRG Codeine NEGATIVE ng/mL <50 medMATCH Codeine CONSISTENT NRG Hydrocodone 245 ng/mL <50 medMATCH Hydrocodone CONSISTENT NRG Hydromorphone 193 ng/mL <50 medMATCH Hydromorphone CONSISTENT NRG Morphine NEGATIVE ng/mL <50 medMATCH Morphine CONSISTENT NRG Norhydrocodone 2375 ng/mL <50 medMATCH Norhydrocodone CONSISTENT NRG Prescribed Drug 2 Alprazolam NRG Prescribed Drug 3 Tramadol NRG Prescribed Drug 4 Neurontin(TM) NRG Barbiturates POSITIVE ng/mL <300 Methadone Metabolite NEGATIVE ng/mL <100 medMATCH Methadone Metab CONSISTENT NRG Phencyclidine NEGATIVE ng/mL <25 medMATCH Phencyclidine CONSISTENT NRG Amobarbital NEGATIVE ng/mL <100 medMATCH Amobarbital CONSISTENT NRG Butalbital NEGATIVE ng/mL <100 medMATCH Butalbital CONSISTENT NRG Pentobarbital NEGATIVE ng/mL <100 medMATCH Pentobarbital CONSISTENT NRG Phenobarbital 5090 ng/mL <100 medMATCH Phenobarbital INCONSISTENT NRG Secobarbital NEGATIVE ng/mL <100 medMATCH Secobarbital CONSISTENT NRG Blood CBC with ordered manual differenti al panel - 01/10/19 10:00 Blood leukocytes automated count (number/volume) 5.1 10*3/uL 4.3-11.0 Blood erythrocytes automated count (number/volume) 3.73 10*6/uL 4.35-5.85 Venous blood hemoglobin measurement (mass/volume) 12.0 g/dL 11.5-16.0 Blood hematocrit (volume fraction) 37 % 35-52 Automated erythrocyte mean corpuscular volume 99 [ foz_us] 80-99 Automated erythrocyte mean corpuscular h emoglobin (mass per erythrocyte) 32 pg 25-34 Automated erythrocyte mean corpuscular h emoglobin concentration measurement (mass/volume) 32 g/dL 32-36 Automated erythrocyte distribution width ratio 13. 8 % 10.0- 14.5 Automated blood platelet count (count/volume) 215 10*3/uL 130-400 Automated blood platelet mean volume measurement 9.5 [foz_us] 7.4-10.4 Automated blood neutrophils/100 leukocytes 65 % 42-75 Automated blood lymphocytes/100 leukocytes 18 % 12-44 Blood monocytes/100 leukocytes 10 % NRG Automated blood eosinophils/100 leukocytes 4 % 0-10 Automated blood basophils/100 leukocytes 1 % 0-10 Blood neutrophils automated count (number/volume) 3.3 10*3 1.8-7.8 Blood lymphocytes automated count (number/volume) 0.9 10*3 1.0-4.0 Blood monocytes automated count (number/volume) 0. 6 10*3 0.0-1.0 Automated eosinophil count 0.2 10*3/uL 0 .0-0.3 Automated blood basophil count (count/volume) 0.1 10*3/uL 0.0-0.1 Manual blood segmented neutrophils/100 leukocytes 62 % NRG Manual blood lymphocytes/100 leukocytes 20 % NRG Manual eosinophils/100 leukocytes in nose 3 % NRG Manual blood basophils/100 leukocytes 2 % NRG Blood erythrocyte morphology finding identification NORMAL NRG Manual blood myelocytes/100 leukocytes 3 % NRG PT panel in platelet poor plasma by coag ulation assay - 01/10/19 10:00 Prothrombin time (PT) in platelet poor plasma by coagu lation assay 14.1 s 12.2-14.7 INR in platelet poor plasma or blood by coagulation as say 1.1 0.8-1.4 Activated partial thromboplastin time (a PTT) in platelet poor plasma bycoagulation assay - 01/10/19 10:00 Activated partial thromboplastin time (a PTT) in platelet poor plasma bycoagulation assay 37 s 24-35 Comprehensive metabolic panel - 01/10/19 10:00 Serum or plasma sodium measurement (moles/volume) 139 mmol/L 135-145 Serum or plasma potassium measurement (moles/volume) 5.4 mmol/L 3.6-5.0 Serum or plasma chloride measurement (moles/volume) 101 mmol/L 98-107 Carbon dioxide 25 mmol/L 21-32 Serum or plasma anion gap determination (moles/volume) 13 mmol/L 5-14 Serum or plasma urea nitrogen measurement (mass/volume ) 18 mg/dL 7-18 Serum or plasma creatinine measurement (mass/volume) 0.73 mg/dL 0.60-1.30 Serum or plasma urea nitrogen/creatinine mass ratio 25 NRG Serum or plasma creatinine measurement w ith calculation of estimated glomerular filtration rate > NRG Serum or plasma glucose measurement (mass/volume) 141 mg/dL 70-105 Serum or plasma calcium measurement (mass/volume) 10.0 mg/dL 8.5-10.1 Serum or plasma total bilirubin measurement (mass/volu me) 0.2 mg/dL 0.1-1.0 Serum or plasma alkaline phosphatase kathy surement (enzymatic activity/volume) 64 U/L 40-136 Serum or plasma aspartate aminotransfera se measurement (enzymatic activity/volume) 21 U/L 5-34 Serum or plasma alanine aminotransferase measurement (enzymatic activity/volume) 17 U/L 0-55 Serum or plasma protein measurement (mass/volume) 7.6 g/dL 6.4-8.2 Serum or plasma albumin measurement (mass/volume) 4.4 g/dL 3.2-4.5 CALCIUM CORRECTED 9.7 mg/dL 8.5-10.1 Complete urinalysis with reflex to cultu re - 01/10/19 11:10 Urine color determination YELLOW NRG Urine clarity determination CLEAR NR G Urine pH measurement by test strip 7.0 5-9 Specific gravity of urine by test strip 1.010 1.016-1.022 Urine protein assay by test strip, semi-quantitative 1+ NEGATIVE Urine glucose detection by automated test strip NE GATIVE NEGATIVE Erythrocytes detection in urine sediment by light micr oscopy TRACE NEGATIVE Urine ketones detection by automated test strip NE GATIVE NEGATIVE Urine nitrite detection by test strip NEGATIVE NEGATIVE Urine total bilirubin detection by test strip NEGA TIVE NEGATIVE Urine urobilinogen measurement by automated test strip (mass/volume) 0.2 mg/dL < = 1.0 Urine leukocyte esterase detection by dipstick 1+ NEGATIVE Automated urine sediment erythrocyte cou nt by microscopy (number/high power field) [HPF] NRG Automated urine sediment leukocyte count by microscopy (number/high power field) [HPF] NRG Bacteria detection in urine sediment by light microsco py NEGATIVE NRG Squamous epithelial cells detection in u rine sediment by light microscopy 0-2 NRG Crystals detection in urine sediment by light microsco py NONE NRG Casts detection in urine sediment by light microscopy NONE NRG Mucus detection in urine sediment by light microscopy NEGATIVE NRG Complete urinalysis with reflex to culture YES NRG Bacterial urine culture - 01/10/19 11:10 Bacterial urine culture 3 OR MORE NRG COLONY COUNT 30,000 CFU/ML NRG FTX;REPORTABLE SUGGESTING PROBABLE COLLECTION NRG FREE TEXT ENTRY 2 CONTAMINATION WITH SKIN ANDRIY NRG FREE TEXT ENTRY 3 NO SUSCEPTIBILITY PERFORMED. NRG Encounters ACCT No. Visit Date/Time Discharge Status Pt. Type Provider Facility Loc./Unit Complaint [id number] 07/26/2018 07:17:00 07/26/2018 23:59: 00 DIS Outpatient Fernando Chin [id number] 06/29/2018 19:03:00 06/29/2018 23:59: 00 DIS Outpatient Fernando Chin [id number] 06/28/2018 12:40:00 06/28/2018 13:43: 00 DIS [place] [facility] [place] [id number] 11/27/2018 12:30:00 11/27/2018 23:59:5 9 [facility] [id number] 11/27/2018 12:30:00 Document Registration [id number] 10/23/2018 13:40:00 Document Registration [id number] 09/11/2018 11:20:00 Document Registration [id number] 08/25/2017 14:55:02 ACT Unknown Carlos Melchor MD [id number] 02/03/2019 03:26:00 06:06:00 DIS Emergency YAAKOV CARRILLO, RADHA Rockwell [facility] ER FS NOSE BLEED [id number] 02/02/2019 11:39:00 13:35:00 DIS Emergency SVETLANA JIMENEZ MD [facility] ER FS EPISTAXIS [id number] 01/10/2019 09:39:00 11:37:00 DIS Outpatient ANAMARIA VELARDE MD [facility] ER FS EPISTAXIS [id number] 01/01/2019 07:57:00 08:50:00 DIS Emergency LINDSEY SORIN SLOAN [facility] ER FS EPISTAXIS [id number] 11/15/2018 13:37:00 23:59:59 CLS Outpatient PABLITO PATHAK MD [facility] RAD OSTEOMYELITIS 5TH MET [id number] 10/19/2018 07:58:00 23:59:59 CLS Outpatient ARACELI QUEEN APRN [facility] WOUNDCARE [id number] 10/12/2018 08:07:00 23:59:59 CLS Outpatient ARACELI QUEEN APRN [facility] WOUNDCARE [id number] 09/04/2018 09:45:00 15:23:00 DIS Inpatient YENIFER CARRILLO, MARIZOL Whitehead [facility] 4TH WEAKNESS [id number] 08/22/2018 18:10:00 14:57:00 DIS Inpatient BRIANNA HERNANDEZ DO V [facility] 4TH SMALL BOWEL OBSTRUCTION [id number] 08/07/2018 19:05:00 20:35:00 DIS Emergency PABLITO HOWARD DO [facility] ER FS NOSE BLEED [id number] 08/04/2018 10:38:00 23:59:59 CLS Outpatient DIYA CARRILLO, ERENDIRA Keith [facility] LAB FS [id number] 06/22/2018 11:29:00 14:45:00 DIS [facility] [id number] 06/19/2018 22:54:00 00:02:00 DIS Emergency GABRIEL ZAVALA DO [facility] ER FS FOOT ULCER [id number] 06/19/2018 11:16:00 12:57:00 DIS Emergency VILMA SLOAN, DORIS D [facility] ER FS EPISTAXIS [id number] 06/11/2018 11:54:00 12:45:00 DIS Outpatient CHU CARRILLO, ABHISHEK Gonzalez [facility] 4TH LT FOOT WOUND [id number] 05/12/2018 13:33:00 23:59:59 CLS Outpatient DIYA CARRILLO, ERENDIRA Keith [facility] LAB FS E875 [id number] 05/07/2018 19:21:00 23:20:00 DIS Emergency JESSICA CARRILLO, RON Neal a [facility] ER FS RT SIDE PAIN [id number] 03/07/2018 23:02:00 019 13:30:00 DIS Inpatient DANIAL CARRILLO, BENJAMÍN Nayak [facility] 4TH SMALL BOWEL ILEUS [id number] 03/10/2017 00:13:00 018 23:59:59 CLS Preadmit DANNY PADILLA [facility] ONC [id number] 12/09/2016 12:14:00 018 00:01:00 DIS Outpatient DANNY PADILLA V [facility] ONC [id number] 01/23/2017 07:06:00 017 09:35:00 DIS Outpatient DANISH CARRILLO, MARYANN Spicer [facility] SDC NOSE BLEED [id number] 12/02/2015 10:42:00 016 23:59:59 CLS Outpatient DANNY PADILLA V [facility] FS [id number] 11/26/2014 11:00:00 015 23:59:59 CLS Outpatient DANNY PADILLA V [facility] FS [id number] 11/20/2013 10:16:00 014 23:59:59 CLS Outpatient DANNY PADILLA V [facility] FS [id number] 11/28/2012 12:59:00 013 23:59:59 [facility] [id number] 11/30/2011 13:04:00 Document Registration [id number] 11/03/2010 12:51:00 Document Registration [id number] 11/04/2009 13:41:00 Document Registration
== END 2019-01-10 11:37 | disposition home or self-care (01) ==
LOC: EDUNIT# 09:36 → ER FS 09:39
DX: R04.0 Epistaxis (principal); I10 Essential (primary) hypertension; E78.00 Pure hypercholesterolemia, unspecified; F03.90 Unspecified dementia, unspecified severity, without behavioral disturbance, psychotic disturbance, mood disturbance, and anxiety; E11.40 Type 2 diabetes mellitus with diabetic neuropathy, unspecified; F41.9 Anxiety disorder, unspecified; Z86.711 Personal history of pulmonary embolism; Z79.01 Long term (current) use of anticoagulants; Z79.82 Long term (current) use of aspirin; Z79.51 Long term (current) use of inhaled steroids; Z79.84 Long term (current) use of oral hypoglycemic drugs; Z85.3 Personal history of malignant neoplasm of breast; Z82.49 Family history of ischemic heart disease and other diseases of the circulatory system
CPT/HCPCS: 30901; 36415; 80053; 81000; 85007; 85027; 85610; 85730; 87088

== ENCOUNTER 2019-02-02 11:37 | Emergency (ER) | payer MEDICARE, MEDICAID ==
[~2019-02-02 11:37] MED LIST changes: -FEN12TD; +FENT1PAT6; -OMEP-280 PO; +OMEP20CA13 PO; +TRAM50TA2 PO; -TRM50T PO
[2019-02-02] MEDS ORDERED: OXYMETAZOLINE (AFRIN) 0.05% NA 15 ML BTL ONE (11:41)
--- NOTE | 2019-02-02 11:57 | ED EENT ---
History of Present Illness General Chief Complaint: Nasal Problems Stated Complaint: EPISTAXIS Source: patient Exam Limitations: no limitations History of Present Illness Date Seen by Provider: Feb 02, 2019 Time Seen by Provider: 11:45 Initial Comments Here with report of nosebleed that has been going on intermittently for the last 2 hours. She has tried direct pressure and tissue packing in the nose. When the tissue is packed in the nose, she was spitting up some blood. Does have history of nosebleed and nose problems. Does have history of hypertension and hadn't taken her pressure medicines yet this morning. That is improved now. Denies recent injury otherwise. Timing/Duration: abrupt, this morning Severity: moderate Location: nose Prearrival Treatment: squeezing nostrils, nasal packing Associated Symptoms: No facial pain/swelling, No fever; nasal congestion/drainage Allergies and Home Medications Allergies Coded Allergies: No Known Drug Allergies (Unverified , 06/11/18) Home Medications Allopurinol 100 Mg Tablet, 100 MG PO DAILY, (Reported) Alprazolam 0.5 Mg Tablet, 0.5 MG PO BID, (Reported) Apixaban 5 Mg Tablet, 5 MG PO BID, (Reported) Aspirin 81 Mg Tablet.dr, 81 MG PO DAILY, (Reported) Calcium Carbonate 600 Mg Tablet, 600 MG PO DAILY, (Reported) Fluticasone Propionate 16 Gm [place].susp, 2 SPRAYS NS DAILY PRN for ALLERGIES, (Reported) Gabapentin 600 Mg Tablet, 600 MG PO QID, (Reported) Gemfibrozil 600 Mg Tablet, 600 MG PO BID, (Reported) Glipizide 5 Mg Tablet, 5 MG PO BID, (Reported) Mirabegron 25 Mg Tab.er.24h, 25 MG PO DAILY, (Reported) Montelukast Sodium 10 Mg Tablet, 10 MG PO HS, (Reported) Multivitamin 1 Each Tablet, 1 TAB PO DAILY, (Reported) Omeprazole 20 Mg Capsule.dr, 20 MG PO DAILY, (Reported) Primidone 50 Mg Tablet, 100 MG PO BID, (Reported) TAKES 2 (50MG) TABLETS Sertraline HCl 50 Mg Tablet, 50 MG PO DAILY, (Reported) Sodium Chloride/Aloe Vera 14.1 Gm Gel..gram., 14.1 GM TP 5XD Prescribed by: BRIANNA HERNANDEZ on 09/06/18 1025 Tramadol HCl 50 Mg Tablet, 50 MG PO Q6H PRN for PAIN-MODERATE Prescribed by: BRIANNA HERNANDEZ on 06/16/18 1031 Valsartan 160 Mg Tablet, 80 MG PO DAILY, (Reported) TAKES 1/2 (160MG) TABLET Patient Home Medication List Home Medication List Reviewed: Yes Review of Systems Review of Systems Constitutional: see HPI; No chills, No fever Nose: see HPI, epistaxis; denies pain Mouth: no symptoms reported Throat: no symptoms reported Respiratory: no symptoms reported Cardiovascular: no symptoms reported Skin: no symptoms reported Neurological: No Symptoms Reported Past Fnrkhvu-Zstutt-Vzdqam Hx Past Med/Social Hx: Reviewed Nursing Past Med/Soc Hx Patient Social History Alcohol Use: Denies Use Recreational Drug Use: No Type Used: Cigarettes 2nd Hand Smoke Exposure: No Recent Foreign Travel: Yes Recent Hopitalizations: Yes Seasonal Allergies Seasonal Allergies: No Past Medical History Surgeries: Yes (CATARACTS) Abdominal, Bowel Surgery, Breast, Gallbladder Respiratory: Yes Pulmonary Embolism, Sleep Apnea Cardiac: Yes High Cholesterol, Hypertension Neurological: Yes (GUILLAIN-BARRE) Dementia, Neuropathy [employer] History: Menopausal Sexually Transmitted Disease: Yes (GONORRHEA) Genitourinary: Yes (INCONTINENCE) Gastrointestinal: Yes Gastrointestinal Bleed Musculoskeletal: Yes (RESTLESS LEGS; GAIT DISTURBANCE) Arthritis Endocrine: Yes Diabetes, Non-Insulin dep HEENT: Yes (NOSEBLEEDS; PERTUSSIS; ) Cataract Loss of Vision: Bilateral Hearing Impairment: Hard of Hearing, Bilateral Hearing Aide Cancer: Yes Breast Did You Recieve Any Treatments: Yes What Type of Treatment Did You: Chemotherapy, Radiation, Surgical Intervention Psychosocial: Yes Anxiety Integumentary: Yes (CHICKEN POX, ULCER OF LEFT ANKLE) Blood Disorders: No Family Medical History Reviewed Nursing Family Hx Heart Disease, Diabetes, Hypertension, Other Conditions/Hx Physical Exam Vital Signs Vital Signs - First Documented 02/02/19 11:40 Temp 36.8 Pulse 55 Resp 18 B/P (MAP) 162/66 (98) Pulse Ox 95 Height, Weight, BMI Height: 4'11.00" Weight: 150lbs. 4.2oz. [id number]; 33.00 BMI Method:Estimated General Appearance: WD/WN, no apparent distress Nose: active bleeding (left anterior nare) Mouth/Throat: pharynx normal, other (small amount of blood oozing posterior pharynx) Cardiovascular: regular rate, rhythm, no murmur Respiratory: lungs clear, normal breath sounds Neurologic/Psychiatric: alert, oriented x 3 Skin: normal color, warm/dry Progress/Results/Core Measures Results/Orders My Orders Orders - SVETLANA JIMENEZ MD Oxymetazoline 0.05% Nasal [place] (Afrin 0. (02/02/19 11:41) Vital Signs/I&O 02/02/19 11:40 Temp 36.8 Pulse 55 Resp 18 B/P (MAP) 162/66 (98) Pulse Ox 95 Progress Progress Note : Progress Note Seen and evaluated. Afrin nasal spray 3 sprays to the nostrils bilaterally. Nursing applied direct pressure and squeezing to the nostrils. Monitor patient. 1320: Patient overall doing much better. No return of bleeding. Discharged home with return precautions. Patient verbalize understanding instructions and agreement with plan. Departure Impression Primary Impression: Recurrent epistaxis Disposition: 01 HOME, SELF-CARE Condition: Improved Departure-Patient Inst. Decision time for Depature: 13:22 Referrals: MARYANN ACOSTA MD, KATRINA M MD (PCP/Family) Primary Care Physician Patient Instructions: Nosebleeds (DC) Add. Discharge Instructions: All discharge instructions reviewed with patient and/or family. Voiced understanding. Follow-up with Dr. Acosta for recheck and further evaluation. Return for worse pain, persistent bleeding, weakness, breathing problems or other concerns as needed. Do not blow your nose. You may use nasal saline spray to moisten nostrils as needed. You can get this [id number]. Use humidified air in your bedroom especially. SVETLANA JIMENEZ MD Feb 02, 2019 11:57
[2019-02-02 13:30] VITALS: BP 169/55
[2019-02-03] MEDS ORDERED: CEPH500C PO (05:59)
== END 2019-02-02 13:35 | disposition home or self-care (01) ==
LOC: EDUNIT# 11:37 → ER FS 11:39
DX: R04.0 Epistaxis (principal); I10 Essential (primary) hypertension; E78.00 Pure hypercholesterolemia, unspecified; F03.90 Unspecified dementia, unspecified severity, without behavioral disturbance, psychotic disturbance, mood disturbance, and anxiety; E11.40 Type 2 diabetes mellitus with diabetic neuropathy, unspecified; F41.9 Anxiety disorder, unspecified; Z85.3 Personal history of malignant neoplasm of breast; Z79.82 Long term (current) use of aspirin; Z79.01 Long term (current) use of anticoagulants; Z79.51 Long term (current) use of inhaled steroids; Z86.711 Personal history of pulmonary embolism; Z82.49 Family history of ischemic heart disease and other diseases of the circulatory system

== ENCOUNTER 2019-02-03 03:21 | Emergency (ER) | payer MEDICARE, MEDICAID ==
[~2019-02-03] VITALS: Ht 154 cm; Wt 88.0 kg
--- NOTE | 2019-02-03 05:02 | ED EENT ---
History of Present Illness General Chief Complaint: Nasal Problems Stated Complaint: NOSE BLEED Nursing Triage Note: PT BROUGHT IN BY EMS WITH CC OF A NOSE BLEED. UPON ARRIVAL, PT'S NOSE HAS STOPPED BLEEDING. Source: patient History of Present Illness Date Seen by Provider: Feb 03, 2019 Time Seen by Provider: 05:02 Initial Comments 78-year-old female presenting with recurrent nosebleed. She has chronic history of nosebleeds and was seen earlier in the day by Dr. Dunaway. At that time her nosebleed was resolved with Wally-Synephrine and pressure. She woke up tonight with blood dripping down the back of her throat. She has been stable and not having any dizziness or lightheadedness. She has an appointment coming up this next week with Dr. Acosta but because of the recurrent nosebleed and choking on some clot going down the back of her throat EMS was activated and brought her to the emergency department. Allergies and Home Medications Allergies Coded Allergies: No Known Drug Allergies (Unverified , 06/11/18) Home Medications Allopurinol 100 Mg Tablet, 100 MG PO DAILY, (Reported) Alprazolam 0.5 Mg Tablet, 0.5 MG PO BID, (Reported) Apixaban 5 Mg Tablet, 5 MG PO BID, (Reported) Aspirin 81 Mg Tablet.dr, 81 MG PO DAILY, (Reported) Calcium Carbonate 600 Mg Tablet, 600 MG PO DAILY, (Reported) Cephalexin 500 Mg Capsule, 500 MG PO TID Prescribed by: RADHA NUNO on 02/03/19 0559 Fluticasone Propionate 16 Gm [place].susp, 2 SPRAYS NS DAILY PRN for ALLERGIES, (Reported) Gabapentin 600 Mg Tablet, 600 MG PO QID, (Reported) Gemfibrozil 600 Mg Tablet, 600 MG PO BID, (Reported) Glipizide 5 Mg Tablet, 5 MG PO BID, (Reported) Mirabegron 25 Mg Tab.er.24h, 25 MG PO DAILY, (Reported) Montelukast Sodium 10 Mg Tablet, 10 MG PO HS, (Reported) Multivitamin 1 Each Tablet, 1 TAB PO DAILY, (Reported) Omeprazole 20 Mg Capsule.dr, 20 MG PO DAILY, (Reported) Primidone 50 Mg Tablet, 100 MG PO BID, (Reported) TAKES 2 (50MG) TABLETS Sertraline HCl 50 Mg Tablet, 50 MG PO DAILY, (Reported) Sodium Chloride/Aloe Vera 14.1 Gm Gel..gram., 14.1 GM TP 5XD Prescribed by: BRIANNA HERNANDEZ on 09/06/18 1025 Tramadol HCl 50 Mg Tablet, 50 MG PO Q6H PRN for PAIN-MODERATE Prescribed by: BRIANNA HERNANDEZ on 06/16/18 1031 Valsartan 160 Mg Tablet, 80 MG PO DAILY, (Reported) TAKES 1/2 (160MG) TABLET Patient Home Medication List Home Medication List Reviewed: Yes Review of Systems Review of Systems Constitutional: No chills, No dizziness, No fever Eyes: No Symptoms Reported Ears: No Symptoms Reported Nose: clots, epistaxis Mouth: no symptoms reported Throat: other (blood clot going down the back of her throat) Respiratory: no symptoms reported Cardiovascular: no symptoms reported Gastrointestinal: no symptoms reported Musculoskeletal: no symptoms reported Skin: no symptoms reported Past Mdyeqdh-Kibytw-Nxsydc Hx Past Med/Social Hx: Reviewed Nursing Past Med/Soc Hx Patient Social History Type Used: Cigarettes 2nd Hand Smoke Exposure: No Recent Foreign Travel: No Contact w/Someone Who Travel: No Recent Infectious Disease Expo: No Recent Hopitalizations: Yes Physical Abuse: No Sexual Abuse: No Mistreated: No Seasonal Allergies Seasonal Allergies: No Past Medical History Surgeries: Yes (CATARACTS) Abdominal, Bowel Surgery, Breast, Gallbladder Respiratory: Yes Pulmonary Embolism, Sleep Apnea Cardiac: Yes High Cholesterol, Hypertension Neurological: Yes (GUILLAIN-BARRE) Dementia, Neuropathy 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 History: Menopausal Sexually Transmitted Disease: Yes (GONORRHEA) Genitourinary: Yes (INCONTINENCE) Gastrointestinal: Yes Gastrointestinal Bleed Musculoskeletal: Yes (RESTLESS LEGS; GAIT DISTURBANCE) Arthritis Endocrine: Yes Diabetes, Non-Insulin dep HEENT: Yes (NOSEBLEEDS; PERTUSSIS; ) Cataract Loss of Vision: Bilateral Hearing Impairment: Hard of Hearing, Bilateral Hearing Aide Cancer: Yes Breast Did You Recieve Any Treatments: Yes What Type of Treatment Did You: Chemotherapy, Radiation, Surgical Intervention Psychosocial: Yes Anxiety Integumentary: Yes (CHICKEN POX, ULCER OF LEFT ANKLE) Blood Disorders: No Family Medical History Heart Disease, Diabetes, Hypertension, Other Conditions/Hx Physical Exam Vital Signs Vital Signs - First Documented 02/03/19 03:30 Temp 36.2 Pulse 63 Resp 16 B/P (MAP) 174/56 (95) Pulse Ox 91 O2 Delivery Room Air Height, Weight, BMI Height: 4'11.00" Weight: 150lbs. 4.2oz. 68.739480ux; 37.00 BMI Method:Estimated General Appearance: no apparent distress Nose: dried blood (dried blood in the anterior septum. There is no active bleeding seen anteriorly.) Mouth/Throat: other (dried blood on her tongue. There is clot and some blood dripping down the back of her throat) Cardiovascular: normal peripheral pulses Neurologic/Psychiatric: alert Skin: normal color, warm/dry Procedures/Interventions Nasal : Nasal Location: Left Inspection with: Otoscope Nasal Procedures: Rapid Rhino Progress After obtaining verbal consent to a 7.5 cm anterior-posterior Rhino Rocket was placed. Patient tolerated the procedure well without any immediate consultation. The device was inflated with approximately 6 mL of air. The device was secured to her cheek with paper tape. Advised to keep in place until follow-up with ENT. A prescription for Keflex to try to prevent sinusitis was also prescribed and sent to the pharmacy to start today. Progress/Results/Core Measures Results/Orders Vital Signs/I&O 02/03/19 03:30 Temp 36.2 Pulse 63 Resp 16 B/P (MAP) 174/56 (95) Pulse Ox 91 O2 Delivery Room Air Blood Pressure Mean: 95 Progress Progress Note : Progress Note Due to the recurrent nosebleed and it the more posterior and I verbally consented the patient to place a Rhino Rocket that was anterior and posterior and placement. She stated she did have these before and is willing to go through that again. Counseled on placement and follow-up. She tolerated the placement of 7.5 cm Rhino Rocket without any complication. She had no further bleeding down the back of her throat after placement. She rinsed her mouth with water and removed all clots. After that she continued to be clear of any further bleeding. She had a prescription for Keflex to try and prevent sinusitis while the packing was in place. Counseled to follow up with Dr. Acosta this next week. The caregiver stated that she already has an appointment to follow-up with him and will be seen for this. Departure Impression Primary Impression: Recurrent epistaxis Additional Impression: Chronic hypertension Disposition: 01 HOME, SELF-CARE Condition: Stable Departure-Patient Inst. Decision time for Depature: 05:56 Referrals: MARYANN ACOSTA MD, KATRINA M MD (PCP/Family) Primary Care Physician Patient Instructions: Nosebleeds (DC) Add. Discharge Instructions: Keep nasal pack in place until you see ENT for follow up this week. This will control bleeding until you can see the specialist. When they remove the packing they can look to see if there is a blood vessel that needs cauterized to prevent recurrent bleeding. Take the antibiotic to prevent a sinus infection. Make sure you are taking your blood pressure medicines to keep your blood pressure under control All discharge instructions reviewed with patient and/or family. Voiced un derstanding. Scripts Cephalexin (Cephalexin) 500 Mg Capsule 500 MG PO TID for 5 Days, #15 CAP 0 Refills Prov: RADHA NUNO MD 02/03/19 RADHA NUNO MD Feb 03, 2019 05:02
[2019-02-03] MEDS ORDERED: CEPH500C PO (05:59)
[2019-02-03 06:01] VITALS: BP 202/81
== END 2019-02-03 06:06 | disposition home or self-care (01) ==
LOC: EDUNIT# 03:21 → ER FS 03:26
DX: R04.0 Epistaxis (principal); I10 Essential (primary) hypertension; E78.00 Pure hypercholesterolemia, unspecified; E11.40 Type 2 diabetes mellitus with diabetic neuropathy, unspecified; F03.90 Unspecified dementia, unspecified severity, without behavioral disturbance, psychotic disturbance, mood disturbance, and anxiety; F41.9 Anxiety disorder, unspecified; Z85.3 Personal history of malignant neoplasm of breast; Z79.82 Long term (current) use of aspirin; Z79.01 Long term (current) use of anticoagulants; Z79.51 Long term (current) use of inhaled steroids; Z86.711 Personal history of pulmonary embolism; Z82.49 Family history of ischemic heart disease and other diseases of the circulatory system
CPT/HCPCS: 99283

== ENCOUNTER 2019-02-17 21:30 | Emergency (ER) | payer MEDICARE, MEDICAID ==
[~2019-02-17] VITALS: Ht 149.9 cm; Wt 68.2 kg
[~2019-02-17 21:30] MED LIST changes: +CEPH500C PO; +FEN12TD; -FENT1PAT6; +OMEP-280 PO; -OMEP20CA13 PO; -TRAM50TA2 PO; +TRM50T PO
--- NOTE | 2019-02-17 21:56 | ED General ---
General Chief Complaint: Nasal Problems Stated Complaint: NOSE BLEED Nursing Triage Note: pt forund by caregiver with epistaxis, pt with frequent nose bleeds, per ems caregiver noted pts humidifier was empty. upon ems arrival nose bleed had stopped but pt wanted checked out. Nursing Sepsis Screen: No Definite Risk Source of Information: Patient, EMS History of Present Illness Date Seen by Provider: Feb 17, 2019 Time Seen by Provider: 21:32 Initial Comments 78 yo F presenting with EMS having complaints of a coughing fit at home that led to a nose bleed. She wears oxygen and the humidifier was out on her oxygen. She had a nose bleed after the coughing fit and her caregiver contacted her sister in law and they wanted her to come be checked in the ED. she currently is not having a nose bleed. She is on an antibiotic for a sinus infection and cough. She denies any problems currently. Her blood pressure was up at home but is 155 systolic here. Allergies and Home Medications Allergies Coded Allergies: No Known Drug Allergies (Unverified , 06/11/18) Home Medications Allopurinol 100 Mg Tablet, 100 MG PO DAILY, (Reported) Alprazolam 0.5 Mg Tablet, 0.5 MG PO BID, (Reported) Apixaban 5 Mg Tablet, 5 MG PO BID, (Reported) Aspirin 81 Mg Tablet.dr, 81 MG PO DAILY, (Reported) Calcium Carbonate 600 Mg Tablet, 600 MG PO DAILY, (Reported) Cephalexin 500 Mg Capsule, 500 MG PO TID Prescribed by: RADHA NUNO on 02/03/19 0559 Fluticasone Propionate 16 Gm [place].susp, 2 SPRAYS NS DAILY PRN for ALLERGIES, (Reported) Gabapentin 600 Mg Tablet, 600 MG PO QID, (Reported) Gemfibrozil 600 Mg Tablet, 600 MG PO BID, (Reported) Glipizide 5 Mg Tablet, 5 MG PO BID, (Reported) Mirabegron 25 Mg Tab.er.24h, 25 MG PO DAILY, (Reported) Montelukast Sodium 10 Mg Tablet, 10 MG PO HS, (Reported) Multivitamin 1 Each Tablet, 1 TAB PO DAILY, (Reported) Omeprazole 20 Mg Capsule.dr, 20 MG PO DAILY, (Reported) Primidone 50 Mg Tablet, 100 MG PO BID, (Reported) TAKES 2 (50MG) TABLETS Sertraline HCl 50 Mg Tablet, 50 MG PO DAILY, (Reported) Sodium Chloride/Aloe Vera 14.1 Gm Gel..gram., 14.1 GM TP 5XD Prescribed by: BRIANNA HERNANDEZ on 09/06/18 1025 Tramadol HCl 50 Mg Tablet, 50 MG PO Q6H PRN for PAIN-MODERATE Prescribed by: BRIANNA HERNANDEZ on 06/16/18 1031 Valsartan 160 Mg Tablet, 80 MG PO DAILY, (Reported) TAKES 1/2 (160MG) TABLET Patient Home Medication List Home Medication List Reviewed: Yes Review of Systems Review of Systems Constitutional: No chills, No fever EENTM: see HPI Respiratory: see HPI Cardiovascular: no symptoms reported Gastrointestinal: no symptoms reported Genitourinary: no symptoms reported Musculoskeletal: no symptoms reported Skin: No rash Past Yakndqq-Henvkn-Obhdpl Hx Past Med/Social Hx: Reviewed Nursing Past Med/Soc Hx Patient Social History Alcohol Use: Denies Use Recreational Drug Use: No Type Used: Cigarettes 2nd Hand Smoke Exposure: No Recent Foreign Travel: No Contact w/Someone Who Travel: No Recent Infectious Disease Expo: No Recent Hopitalizations: Yes Physical Abuse: No Sexual Abuse: No Mistreated: No Fear: No Seasonal Allergies Seasonal Allergies: No Past Medical History Surgeries: Yes (CATARACTS) Abdominal, Bowel Surgery, Breast, Gallbladder Respiratory: Yes Pulmonary Embolism, Sleep Apnea Cardiac: Yes High Cholesterol, Hypertension Neurological: Yes (GUILLAIN-BARRE) 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, 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 Sexually Transmitted Disease: Yes (GONORRHEA) Genitourinary: Yes (INCONTINENCE) Gastrointestinal: Yes Gastrointestinal Bleed Musculoskeletal: Yes (RESTLESS LEGS; GAIT DISTURBANCE) Arthritis Endocrine: Yes Diabetes, Non-Insulin dep HEENT: Yes (NOSEBLEEDS; PERTUSSIS; ) Cataract Loss of Vision: Bilateral Hearing Impairment: Hard of Hearing, Bilateral Hearing Aide Cancer: Yes Breast Did You Recieve Any Treatments: Yes What Type of Treatment Did You: Chemotherapy, Radiation, Surgical Intervention Psychosocial: Yes Anxiety Integumentary: Yes (CHICKEN POX, ULCER OF LEFT ANKLE) Blood Disorders: No Family Medical History Heart Disease, Diabetes, Hypertension, Other Conditions/Hx Physical Exam Vital Signs Vital Signs - First Documented 02/17/19 21:42 Temp 37.4 Pulse 90 Resp 20 B/P (MAP) 155/77 (103) Pulse Ox 92 O2 Delivery Room Air Capillary Refill : Less Than 3 Seconds Height, Weight, BMI Height: 4'11.00" Weight: 150lbs. 4.2oz. 68.764150vy; 30.00 BMI Method:Estimated General Appearance: No Apparent Distress, Obese HEENT: Other (old dried blood in mouth. no active bleeding. No area of active bleeding seen in nose to be able to cauterize it) Neck: Supple Respiratory: Chest Non Tender, No Accessory Muscle Use, No Respiratory Distress, Decreased Breath Sounds Cardiovascular: Regular Rate, Rhythm, Normal Peripheral Pulses Gastrointestinal: Non Tender, Soft Neurologic/Psychiatric: Alert Skin: Normal Color, Warm/Dry Progress/Results/Core Measures Suspected Sepsis Recent Fever Within 48 Hours: No Infection Criteria Present: None New/Unexplained Altered Menta: No Sepsis Screen: No Definite Risk SIRS Temperature: Pulse: 90 Respiratory Rate: 20 Blood Pressure 155 /77 Mean: 103 Results/Orders Vital Signs/I&O 02/17/19 02/17/19 21:42 22:08 Temp 37.4 37.4 Pulse 90 90 Resp 20 20 B/P (MAP) 155/77 (103) 155/77 (103) Pulse Ox 92 92 O2 Delivery Room Air Capillary Refill : Less Than 3 Seconds Blood Pressure Mean: 103 Progress Note : Progress Note with her having BP that was improved and no active bleeding here will have her make sure she finishes antibiotic for her sinuses and cough. Use humidified oxygen to keep nose mucosa moist and limit risk of bleeding. Follow up with Dr. Acosta or pcp Departure Impression Primary Impression: Epistaxis Additional Impression: Upper respiratory infection with cough and congestion Disposition: 01 HOME, SELF-CARE Condition: Stable Departure-Patient Inst. Decision time for Depature: 21:55 Referrals: ERENDIRA KEANE MD (PCP/Family) Primary Care Physician Patient Instructions: Nosebleeds (DC) Add. Discharge Instructions: Make sure to keep using humidified air with the oxygen to keep her nose moist and limit nose bleeds. Follow up with ENT and primary provider for continued problems. Make sure to continue on your medicines for cough and sinus from your regular providers All discharge instructions reviewed with patient and/or family. Voiced understanding. RADHA NUNO MD Feb 17, 2019 21:56
[2019-02-17 22:08] VITALS: BP 155/77
== END 2019-02-17 22:08 | disposition home or self-care (01) ==
LOC: EDUNIT# 21:30 → ER FS 21:37
DX: R04.0 Epistaxis (principal); J06.9 Acute upper respiratory infection, unspecified; I10 Essential (primary) hypertension; E78.00 Pure hypercholesterolemia, unspecified; E11.40 Type 2 diabetes mellitus with diabetic neuropathy, unspecified; F03.90 Unspecified dementia, unspecified severity, without behavioral disturbance, psychotic disturbance, mood disturbance, and anxiety; F41.9 Anxiety disorder, unspecified; Z85.3 Personal history of malignant neoplasm of breast; Z79.82 Long term (current) use of aspirin; Z79.01 Long term (current) use of anticoagulants; Z79.51 Long term (current) use of inhaled steroids; Z86.711 Personal history of pulmonary embolism; Z82.49 Family history of ischemic heart disease and other diseases of the circulatory system
CPT/HCPCS: 99283

== ENCOUNTER → 2019-02-21 | Outpatient (CLI) | payer MEDICARE, MEDICAID ==
--- NOTE | 2019-02-21 14:27 | Diagnostic Imaging Report ---
EXAMINATION: CHEST (PA AND LATERAL) CLINICAL INDICATION: 78-year-old female, cough. COMPARISON: August 22, 2018. FINDINGS: Stable overall appearance of the cardiomediastinal silhouette. There is no identified pneumothorax. There is no pleural effusion. There is no identified interval focal airspace consolidation. IMPRESSION: No identified acute cardiopulmonary abnormality. Dictated by: Dictated on workstation # [id number]
== END ==
LOC: RAD FS 13:05
PROVIDERS: ATTEND Family Medicine
DX: R05 Cough (principal)
CPT/HCPCS: 71046

== ENCOUNTER 2019-02-23 01:02 | Emergency (ER) | payer MEDICARE, MEDICAID ==
[~2019-02-23] VITALS: Ht 149.8 cm; Wt 68.0 kg
--- NOTE | 2019-02-23 01:28 | ED EENT ---
History of Present Illness General Chief Complaint: Nasal Problems Stated Complaint: NOSE BLEED Nursing Triage Note: Patient came in via EMS with report of a nose bleed off and on all day yesterday. Patient is coughing and spitting blood clots. Patient has a small trickle from her left nare. Source: patient, EMS History of Present Illness Date Seen by Provider: Feb 23, 2019 Time Seen by Provider: 01:02 Initial Comments 78 yo F presents to the ED with another nosebleed this am. She has oxygen she uses at home and this keeps drying out her nasal passages. She also was taking antibiotics for sinus infection currently. She keeps coughing up some blood in from all the drainage. She has recurrent nosebleeds and sometimes they can be stopped with pressure but this one has been continuing. She also has problems with her blood pressure being elevated. Allergies and Home Medications Allergies Coded Allergies: No Known Drug Allergies (Unverified , 06/11/18) Home Medications Allopurinol 100 Mg Tablet, 100 MG PO DAILY, (Reported) Alprazolam 0.5 Mg Tablet, 0.5 MG PO BID, (Reported) Apixaban 5 Mg Tablet, 5 MG PO BID, (Reported) Aspirin 81 Mg Tablet.dr, 81 MG PO DAILY, (Reported) Calcium Carbonate 600 Mg Tablet, 600 MG PO DAILY, (Reported) Cephalexin 500 Mg Capsule, 500 MG PO TID Prescribed by: RADHA NUNO on 02/03/19 0559 Fluticasone Propionate 16 Gm [place].susp, 2 SPRAYS NS DAILY PRN for ALLERGIES, (Reported) Gabapentin 600 Mg Tablet, 600 MG PO QID, (Reported) Gemfibrozil 600 Mg Tablet, 600 MG PO BID, (Reported) Glipizide 5 Mg Tablet, 5 MG PO BID, (Reported) Mirabegron 25 Mg Tab.er.24h, 25 MG PO DAILY, (Reported) Montelukast Sodium 10 Mg Tablet, 10 MG PO HS, (Reported) Multivitamin 1 Each Tablet, 1 TAB PO DAILY, (Reported) Omeprazole 20 Mg Capsule.dr, 20 MG PO DAILY, (Reported) Primidone 50 Mg Tablet, 100 MG PO BID, (Reported) TAKES 2 (50MG) TABLETS Sertraline HCl 50 Mg Tablet, 50 MG PO DAILY, (Reported) Sodium Chloride/Aloe Vera 14.1 Gm Gel..gram., 14.1 GM TP 5XD Prescribed by: BRIANNA HERNANDEZ on 09/06/18 1025 Tramadol HCl 50 Mg Tablet, 50 MG PO Q6H PRN for PAIN-MODERATE Prescribed by: BRIANNA HERNANDEZ on 06/16/18 1031 Valsartan 160 Mg Tablet, 80 MG PO DAILY, (Reported) TAKES 1/2 (160MG) TABLET Patient Home Medication List Home Medication List Reviewed: Yes Review of Systems Review of Systems Constitutional: No chills, No fever Eyes: No Symptoms Reported Nose: see HPI Mouth: no symptoms reported Throat: no symptoms reported Respiratory: cough Cardiovascular: no symptoms reported Gastrointestinal: no symptoms reported Skin: other (healing wound on ankle) Neurological: No Symptoms Reported Past Hnqemry-Uwqbcr-Cosmgh Hx Past Med/Social Hx: Reviewed Nursing Past Med/Soc Hx Patient Social History Alcohol Use: Denies Use Recreational Drug Use: No Smoking Status: Never a Smoker Type Used: Cigarettes 2nd Hand Smoke Exposure: No Recent Foreign Travel: No Contact w/Someone Who Travel: No Recent Infectious Disease Expo: No Recent Hopitalizations: Yes Physical Abuse: No Sexual Abuse: No Mistreated: No Fear: No Seasonal Allergies Seasonal Allergies: No Past Medical History Surgeries: Yes (CATARACTS) Abdominal, Bowel Surgery, Breast, Gallbladder Respiratory: Yes Pulmonary Embolism, Sleep Apnea Cardiac: Yes High Cholesterol, Hypertension Neurological: Yes (GUILLAIN-BARRE) 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, 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 Sexually Transmitted Disease: Yes (GONORRHEA) Genitourinary: Yes (INCONTINENCE) Gastrointestinal: Yes Gastrointestinal Bleed Musculoskeletal: Yes (RESTLESS LEGS; GAIT DISTURBANCE) Arthritis Endocrine: Yes Diabetes, Non-Insulin dep HEENT: Yes (NOSEBLEEDS; PERTUSSIS; ) Cataract Loss of Vision: Bilateral Hearing Impairment: Hard of Hearing, Bilateral Hearing Aide Cancer: Yes Breast Did You Recieve Any Treatments: Yes What Type of Treatment Did You: Chemotherapy, Radiation, Surgical Intervention Psychosocial: Yes Anxiety Integumentary: Yes (CHICKEN POX, ULCER OF LEFT ANKLE) Blood Disorders: No Family Medical History Heart Disease, Diabetes, Hypertension, Other Conditions/Hx Physical Exam Vital Signs Vital Signs - First Documented 02/23/19 01:06 Temp 36.8 Pulse 87 Resp 20 B/P (MAP) 173/75 (107) Pulse Ox 93 O2 Delivery Room Air Height, Weight, BMI Height: 4'11.00" Weight: 150lbs. 4.2oz. 68.287572yl; 30.00 BMI Method:Estimated General Appearance: no apparent distress Nose: active bleeding (unable to visualize any single area to be able to cauterize here in the ED. ) Mouth/Throat: other (clots draining down the back of her throat) Cardiovascular: normal peripheral pulses, regular rate, rhythm Respiratory: chest non-tender, rhonchi Skin: warm/dry Progress/Results/Core Measures Results/Orders Vital Signs/I&O 02/23/19 02/23/19 01:06 01:34 Temp 36.8 36.8 Pulse 87 87 Resp 20 20 B/P (MAP) 173/75 (107) 173/75 (107) Pulse Ox 93 93 O2 Delivery Room Air Blood Pressure Mean: 107 Progress Progress Note : Progress Note Due to her recurrent nosebleeds and unable to get them to stop with normal management at home, and she has had multiple ED visits for the same thing I placed a rhino rocket nasal balloon for tamponade of the anterior and posterior nasal septum to try and treat the recurrent nosebleed. she tolerated this well without any immediate complications and the bleeding stopped. 6 mL of air were placed in the balloon. Counseled to continue on antibiotics she is already taking for sinus infection and ankle wound and then check with ENT clinic as soon as possible to get the balloon removed and to have evaluation for her recurrent nosebleeds. Departure Impression Primary Impression: Left-sided nosebleed Additional Impression: Epistaxis, recurrent Disposition: 01 HOME, SELF-CARE Condition: Stable Departure-Patient Inst. Decision time for Depature: 01:27 Referrals: MARYANN ACOSTA MD, KATRINA M MD (PCP/Family) Primary Care Physician Patient Instructions: Nosebleeds (DC) Add. Discharge Instructions: Follow up with Dr. Acosta with ENT about your recurrent nosebleeds. Keep the nasal packing in place until you see ENT. All discharge instructions reviewed with patient and/or family. Voiced understanding. RADHA NUNO MD Feb 23, 2019 01:28
[2019-02-23 01:34] VITALS: BP 173/75
== END 2019-02-23 01:34 | disposition home or self-care (01) ==
LOC: EDUNIT# 01:02 → ER FS 01:06
DX: R04.0 Epistaxis (principal); I10 Essential (primary) hypertension; E11.40 Type 2 diabetes mellitus with diabetic neuropathy, unspecified; E78.00 Pure hypercholesterolemia, unspecified; F03.90 Unspecified dementia, unspecified severity, without behavioral disturbance, psychotic disturbance, mood disturbance, and anxiety; F41.9 Anxiety disorder, unspecified; Z86.711 Personal history of pulmonary embolism; Z85.3 Personal history of malignant neoplasm of breast; Z79.82 Long term (current) use of aspirin; Z79.01 Long term (current) use of anticoagulants; Z79.51 Long term (current) use of inhaled steroids; Z82.49 Family history of ischemic heart disease and other diseases of the circulatory system
CPT/HCPCS: 99284

== ENCOUNTER 2019-02-25 09:57 | Emergency (ER) | payer MEDICARE, MEDICAID ==
[~2019-02-25] VITALS: Ht 157 cm; Wt 68.0 kg
[2019-02-25 11:11] LABS: HEMATOCRIT 37 % (35-52); HEMOGLOBIN 11.9 G/DL (11.5-16.0); MEAN CORPUSCULAR HEMOGLOBIN 33 PG (25-34); MEAN CORPUSCULAR HGB CONC 32 G/DL (32-36); MEAN CORPUSCULAR VOLUME 102 FL (80-99); MEAN PLATELET VOLUME 9.1 FL (7.4-10.4); PLATELET COUNT 274 10^3/uL (130-400); RED CELL DISTRIBUTION WIDTH 13.7 % (10.0-14.5); WHITE BLOOD COUNT 6.6 10^3/uL (4.3-11.0)
[2019-02-25 11:12] LABS: BASOPHILS % (AUTO) 1 % (0-10); EOSINOPHILS % (AUTO) 2 % (0-10); MONOCYTES % (AUTO) 12 % (0-12)
[2019-02-25 11:13] LABS: LYMPHOCYTES % (AUTO) 23 % (12-44); NEUTROPHILS % (AUTO) 62 % (42-75)
[2019-02-25 11:14] LABS: BASOPHILS # (AUTO) 0.1 10^3/uL (0.0-0.1); EOSINOPHILS # (AUTO) 0.2 10^3/uL (0.0-0.3); LYMPHOCYTES # (AUTO) 1.5 X 10^3 (1.0-4.0); MONOCYTES # (AUTO) 0.8 X 10^3 (0.0-1.0); NEUTROPHILS # (AUTO) 4.2 X 10^3 (1.8-7.8)
--- NOTE | 2019-02-25 11:25 | ED EENT ---
History of Present Illness General Chief Complaint: Nasal Problems Stated Complaint: NOSE BLEED Nursing Triage Note: Patient presents to the ED via EMS with c/o right sided nose bleed. She states it began around 9am and her caregiver placed some guaze in the right side of his nose and she had a rhino rocket placed in the left nare on 02/23/2019. Source: patient, family History of Present Illness Date Seen by Provider: Feb 25, 2019 Time Seen by Provider: 11:10 Initial Comments This 78-year-old presents with a history of epistaxis. The patient had a Rhino Rocket placed in her left nostril 2 days ago. The patient's home caregiver thought that she was having bleeding again today and put a Kleenex in her right nostril and the patient was brought to the emergency department. I remove the Kleenex from the right nostril there was no evidence of new bleeding from the right and there or in the oropharynx. Allergies and Home Medications Allergies Coded Allergies: No Known Drug Allergies (Unverified , 06/11/18) Home Medications Allopurinol 100 Mg Tablet, 100 MG PO DAILY, (Reported) Alprazolam 0.5 Mg Tablet, 0.5 MG PO BID, (Reported) Apixaban 5 Mg Tablet, 5 MG PO BID, (Reported) Aspirin 81 Mg Tablet.dr, 81 MG PO DAILY, (Reported) Calcium Carbonate 600 Mg Tablet, 600 MG PO DAILY, (Reported) Cephalexin 500 Mg Capsule, 500 MG PO TID Prescribed by: RADHA NUNO on 02/03/19 0559 Fluticasone Propionate 16 Gm [place].susp, 2 SPRAYS NS DAILY PRN for ALLERGIES, (Reported) Gabapentin 600 Mg Tablet, 600 MG PO QID, (Reported) Gemfibrozil 600 Mg Tablet, 600 MG PO BID, (Reported) Glipizide 5 Mg Tablet, 5 MG PO BID, (Reported) Mirabegron 25 Mg Tab.er.24h, 25 MG PO DAILY, (Reported) Montelukast Sodium 10 Mg Tablet, 10 MG PO HS, (Reported) Multivitamin 1 Each Tablet, 1 TAB PO DAILY, (Reported) Omeprazole 20 Mg Capsule.dr, 20 MG PO DAILY, (Reported) Primidone 50 Mg Tablet, 100 MG PO BID, (Reported) TAKES 2 (50MG) TABLETS Sertraline HCl 50 Mg Tablet, 50 MG PO DAILY, (Reported) Sodium Chloride/Aloe Vera 14.1 Gm Gel..gram., 14.1 GM TP 5XD Prescribed by: BRIANNA HERNANDEZ on 09/06/18 1025 Tramadol HCl 50 Mg Tablet, 50 MG PO Q6H PRN for PAIN-MODERATE Prescribed by: BRIANNA HERNANDEZ on 06/16/18 1031 Valsartan 160 Mg Tablet, 80 MG PO DAILY, (Reported) TAKES 1/2 (160MG) TABLET Patient Home Medication List Home Medication List Reviewed: Yes Review of Systems Review of Systems Constitutional: No chills, No fever Eyes: No Symptoms Reported Ears: No Symptoms Reported Nose: epistaxis Mouth: no symptoms reported Throat: no symptoms reported Respiratory: no symptoms reported Cardiovascular: no symptoms reported Gastrointestinal: no symptoms reported : No Musculoskeletal: no symptoms reported Skin: no symptoms reported Neurological: No Symptoms Reported Hematologic/Lymphatic: Other (patient is on Eliquis.) Immunological/Allergic: no symptoms reported Past Wgeybdz-Wwlwkn-Ymtwcd Hx Past Med/Social Hx: Reviewed Nursing Past Med/Soc Hx Patient Social History Alcohol Use: Denies Use Recreational Drug Use: No Smoking Status: Never a Smoker Type Used: Cigarettes 2nd Hand Smoke Exposure: No Recent Foreign Travel: No Contact w/Someone Who Travel: No Recent Infectious Disease Expo: No Recent Hopitalizations: Yes Physical Abuse: No Sexual Abuse: No Mistreated: No Fear: No Seasonal Allergies Seasonal Allergies: No Past Medical History Surgeries: Yes (CATARACTS) Abdominal, Bowel Surgery, Breast, Gallbladder Respiratory: Yes Pulmonary Embolism, Sleep Apnea Cardiac: Yes High Cholesterol, Hypertension Neurological: Yes (GUILLAIN-BARRE) 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, 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 Sexually Transmitted Disease: Yes (GONORRHEA) Genitourinary: Yes (INCONTINENCE) Gastrointestinal: Yes Gastrointestinal Bleed Musculoskeletal: Yes (RESTLESS LEGS; GAIT DISTURBANCE) Arthritis Endocrine: Yes Diabetes, Non-Insulin dep HEENT: Yes (NOSEBLEEDS; PERTUSSIS; ) Cataract Loss of Vision: Bilateral Hearing Impairment: Hard of Hearing, Bilateral Hearing Aide Cancer: Yes Breast Did You Recieve Any Treatments: Yes What Type of Treatment Did You: Chemotherapy, Radiation, Surgical Intervention Psychosocial: Yes Anxiety Integumentary: Yes (CHICKEN POX, ULCER OF LEFT ANKLE) Blood Disorders: No Family Medical History Heart Disease, Diabetes, Hypertension, Other Conditions/Hx Physical Exam Vital Signs Vital Signs - First Documented 02/25/19 10:00 Temp 36.0 Pulse 58 Resp 16 B/P (MAP) 156/70 (98) Pulse Ox 96 O2 Delivery Room Air Height, Weight, BMI Height: 4'11.00" Weight: 150lbs. 4.2oz. 68.195186ev; 27.00 BMI Method:Estimated General Appearance: WD/WN, no apparent distress Eyes: bilateral eye normal inspection Ears: bilateral ear auricle normal Nose: other (there is a Rhino Rocket in the left nostril. The Kleenex been wedged in the right nostril was removed. No evidence of bleeding was noted from the right naris or evidence of new bleeding in the oropharynx.) Mouth/Throat: other Neck: non-tender Cardiovascular: no murmur Respiratory: lungs clear Gastrointestinal: normal bowel sounds Neurologic/Psychiatric: no motor/sensory deficits Skin: normal color, warm/dry; No ecchymosis Progress/Results/Core Measures Results/Orders Lab Results Laboratory Tests Test 02/25/19 11:02 Range/Units My Orders Orders - MARIZOL GLEZ MD Cbc With Automated Diff (02/25/19 10:48) Vital Signs/I&O 02/25/19 10:00 Temp 36.0 Pulse 58 Resp 16 B/P (MAP) 156/70 (98) Pulse Ox 96 O2 Delivery Room Air Blood Pressure Mean: 98 Progress Progress Note : Time: 11:14 Progress Note I irais a CBC for baseline. Patient was observed in the emergency department for approximately an hour without further bleeding. I called Dr. Acosta's office to arrange for close follow-up. The caregiver is to call Dr. Acosta's office in the morning. I was not clear from the patient and family if the patient was taking Keflex currently are not. I gave the patient a prescription for 500 mg Keflex 3 times a day for 5 days. Departure Impression Primary Impression: Epistaxis Disposition: 01 HOME, SELF-CARE Condition: Improved Departure-Patient Inst. Decision time for Depature: 11:25 Referrals: MARYANN ACOSTA MD, KATRINA M MD (PCP/Family) Primary Care Physician Patient Instructions: Nosebleeds (DC) Add. Discharge Instructions: Call Dr. Acosta's office in the morning for close follow-up and removal of packing. Make sure the ear taking Keflex 500 mg 3 times a day. Return if any problems or questions. All discharge instructions reviewed with patient and/or family. Voiced understanding. Scripts Cephalexin (Keflex) 500 Mg Capsule 500 MG PO TID, #14 CAP Prov: MARIZOL GLEZ MD 02/25/19 MARIZOL GLEZ MD Feb 25, 2019 11:25
[2019-02-25] MEDS ORDERED: CEPH-507 PO (11:28)
[2019-02-25 11:34] VITALS: BP 156/70
[2019-02-25 12:29] LABS: BAND NEUTROPHILS 5 %; EOSINOPHILS % (MANUAL) 3 %; LYMPHOCYTES % (MANUAL) 24 %; MONOCYTES % (MANUAL) 8 %; NEUTROPHILS % (MANUAL) 60 %
== END 2019-02-25 11:34 | disposition home or self-care (01) ==
LOC: EDUNIT# 09:57 → ER FS 09:58
DX: R04.0 Epistaxis (principal); I10 Essential (primary) hypertension; E78.00 Pure hypercholesterolemia, unspecified; F03.90 Unspecified dementia, unspecified severity, without behavioral disturbance, psychotic disturbance, mood disturbance, and anxiety; E11.40 Type 2 diabetes mellitus with diabetic neuropathy, unspecified; F41.9 Anxiety disorder, unspecified; Z85.3 Personal history of malignant neoplasm of breast; Z79.01 Long term (current) use of anticoagulants; Z79.82 Long term (current) use of aspirin; Z79.51 Long term (current) use of inhaled steroids; Z86.711 Personal history of pulmonary embolism; Z82.49 Family history of ischemic heart disease and other diseases of the circulatory system
CPT/HCPCS: 36415; 85007; 85027